=== PATIENT | female | born 1950 | race Caucasian/White ===

== ENCOUNTER → 2017-09-01 12:10 | Outpatient (CLI) | payer MEDICARE, SELFPAY ==
--- NOTE | 2017-09-01 12:15 | RAD_ITS ---
STUDY: X-RAY - RIGHT WRIST REASON FOR EXAM: Female, 67 years old. Pain TECHNIQUE: 3 view(s) of the wrist were obtained. COMPARISON: None. FINDINGS: Normal visualized distal radius and ulna. Normal radiocarpal articulation. Normal distal radioulnar articulation. Normal carpal bones. Normal carpal articulations. Normal carpometacarpal articulation of the thumb. Normal second through fifth carpometacarpal articulations. Normal visualized metacarpal bones. The soft tissue structures are unremarkable. RAD/Wrist min 3 Views IMPRESSION: Normal x-ray examination of the wrist. Electronically Signed: Mikael Alexander MD at 20:42 EDT , Service support ,
--- NOTE | 2017-09-01 12:30 | RAD_ITS ---
STUDY: X-RAY - LEFT WRIST REASON FOR EXAM: Female, 67 years old. Pain TECHNIQUE: 3 view(s) of the wrist were obtained. COMPARISON: None. FINDINGS: Normal visualized distal radius and ulna. Normal radiocarpal articulation. Normal distal radioulnar articulation. Normal carpal bones. Normal carpal articulations. Normal carpometacarpal articulation of the thumb. Normal second through fifth carpometacarpal articulations. Normal visualized metacarpal bones. The soft tissue structures are unremarkable. RAD/Wrist min 3 Views IMPRESSION: Normal x-ray examination of the wrist. Electronically Signed: Mikael Alexander MD at 20:42 EDT , Service support ,
--- NOTE | 2017-09-01 12:31 | RAD_ITS ---
STUDY: X-RAY - SACRUM/COCCYX REASON FOR EXAM: Female, 67 years old. Pain TECHNIQUE: 3 view(s) of the sacrum and coccyx were obtained. COMPARISON: None. FINDINGS: Normal bilateral sacroiliac joints. Normal visualized sacral ala and fused sacral bodies. Normal sacrococcygeal junction with a normal angulation. Normal coccygeal segments. There is a right sided subcutaneous implanted electronic device with leads extending into the spinal canal. This is likely an SCS (spinal cord or sacral stimulator). The presacral soft tissue structures are unremarkable. RAD/Sacrum-Coccyx min 2 Views IMPRESSION: Normal x-rays of the sacrum and coccyx. Electronically Signed: Mikael Alexander MD at 20:43 EDT , Service support ,
== END ==
PROVIDERS: Family Provider Internal Medicine; PCP Internal Medicine; Visit Provider Internal Medicine
DX: S39.92XA Unspecified injury of lower back, initial encounter (principal); X58.XXXA Exposure to other specified factors, initial encounter; M25.532 Pain in left wrist; M25.531 Pain in right wrist
CPT/HCPCS: 72220; 73110

== ENCOUNTER → 2017-11-10 16:11 | Outpatient (CLI) | payer MEDICARE, SELFPAY | PROVIDERS: Family Provider Internal Medicine; PCP Internal Medicine; Visit Provider Nurse Practitioner Gerontology | DX: R05 Cough (principal) | CPT/HCPCS: 71046 ==

== ENCOUNTER → 2018-04-01 06:28 | Outpatient (CLI) | payer MEDICARE, SELFPAY ==
[2018-04-01 07:16] LABS: Absolute Neutrophil Count 3.8 X10^3/uL (2.0-7.7); Basophil# 0.03 X10^3/uL; Basophil% 0.4 % (0-1); Eosinophil# 0.11 X10^3/uL; Eosinophils% 1.6 % (0-5); Hematocrit 39.4 % (37-47); Hemoglobin 13.3 g/dl (12.0-15.0); Lymphocyte % 33.9 % (19-41); Mean Corp Hgb Conc 33.8 g/gl (32-36); Mean Corpuscular Hgb 33.4 pg (27.0-32.0); Mean Platelet Vol. 9.1 fl (6.2-12.0); Monocyte# 0.53 X10^3/uL; Monocyte% 7.8 % (0-10); Platelet Count 201 K/mm3 (150-450); RBC Distribution Width CV 12.7 % (11.6-14.6); RBC Distribution Width SD 45.5 fl (35.1-43.9); Red Blood Count 3.98 M/mm3 (4.2-5.4); White Blood Count 6.8 K/mm3 (4.4-11.0)
[2018-04-01 07:20] LABS: POSITIVE COUNT NO; POSITIVE DIFFERENTIAL NO; POSITIVE MORPHOLOGY NO
[2018-04-01 07:46] LABS: ALB/GLOB Ratio 1.1 RATIO (0.9-2.4); AST(SGOT) 12 U/L (15-37); Alanine Aminotransfer ALT/SGPT 20 U/L (13-56); Albumin, Serum 3.5 g/dL (3.2-5.0); Alkaline Phosphatase 89 U/L (45-117); Anion Gap 7 (5-15); BUN 17 mg/dL (7-18); BUN/Creat Ratio 23.2 RATIO (10-20); CPK Total, Creatine Kinase 44 U/L (26-192); Calcium,Total 8.6 mg/dL (8.5-10.1); Chloride 105 mmol/L (98-107); Creatinine, Serum 0.73 mg/dL (0.55-1.02); EST Glomerular Filtration Rate 84 mL/min (>60); Est Glom Filt Rate - Afr Amer 101 mL/min (>60); Globulin 3.3 g/dL (2.2-4.2); Glucose 90 mg/dL (74-106); Potassium 3.6 mmol/L (3.5-5.1); Protein, Total 6.8 g/dL (6.4-8.2); Sodium Level 142 mmol/L (136-145)
--- NOTE | 2018-04-01 08:19 | US_ITS ---
STUDY: ABDOMINAL ULTRASOUND - RIGHT UPPER QUADRANT REASON FOR VISIT: Female, 67 years old. Mid chest pain for 2 weeks. TECHNIQUE: Ultrasound evaluation of the right upper quadrant was performed with real-time and static duboes-scale imaging. TECHNICAL QUALITY: Adequate. COMPARISON: None. FINDINGS: Liver: The liver measures 16.5 cm. There is increased echogenicity consistent with fatty infiltration. The bile ducts are within normal limits. There is hepatic color flow. The direction of portal flow is hepatopetal. There is no demonstrated mass lesion. Gallbladder: Normal distended gallbladder. The gallbladder wall measures 2.8 mm. There is a negative sonographic Noriega's sign. There is no pericholecystic fluid. There are no gallstones. Common Bile Duct (C.B.D.): The common bile duct measures 4.3 mm. Pancreas: Normal size of the head, body and tail of the pancreas. There is normal echogenicity of the pancreas. There is no demonstrated pancreatic mass or cyst. Right Kidney: Normal size of the right kidney. The right kidney measures 10.8 cm. Normal renal cortex. The right cortex measures 1.7 cm. There is a 1.2 x 1.3 x 1.0 cm simple cortical cyst in the mid kidney. There is no right hydronephrosis. US/Liver IMPRESSION: 1. Fatty infiltration of the liver without mass. 2. No evidence of gallbladder or biliary ductal abnormality. 3. Right renal cyst. Electronically Signed: Vernon Chavez DO at 23:40 EST Tel [phone], Service support ,
--- NOTE | 2018-04-01 08:52 | ECHOD_ITS ---
Reason For Study: chest pain Procedure This was a 2D Doppler, Color Flow transthoracic echocardiogram. Exam performed in department. Left Ventricle Normal size and thickness. Stage 2 diastolic dysfunction. The estimated ejection fraction is 55-60 %. No regional wall motion abnormalities noted. Right Ventricle Normal size and thickness. Normal systolic function. Atria The left atrium is mildly enlarged. Normal right atrium. Normal atrial septum. Mitral Valve The mitral valve is structurally normal. No prolapse or stenosis seen. Trivial mitral valve insufficiency. Tricuspid Valve Normal tricuspid valve. Trivial tricuspid valve insufficiency. Right ventricular systolic pressure estimated to be 26 mmHg. Aortic Valve Trisinus/trileaflet aortic valve. Normal aortic valve. Pulmonic Valve Normal pulmonic valve. Great Vessels Normal aortic root. Normal arch. Normal inferior vena cava. Inferior vena cava collapse with sniff. Pericardium/Pleural No pericardial effusion. MMode/2D Measurements & Calculations LVIDd: 4.6 cm IVSd: 1.1 cm Ao root diam: 3.0 cm LVIDs: 3.3 cm LVPWd: 0.99 cm RVDd: 2.6 cm FS: 28.9 % LAV(MOD-bp): 70.3 ml LA A4 area: 20.4 cm2 LA dimension(2D): 4.2 cm LAV(MOD-bp) Indexed: 35.2 ml/m2 LAV(MOD-sp2): 67.3 ml LAV(MOD-sp4): 66.8 ml RA A4 area: 13.3 cm2 Doppler Measurements & Calculations MV E max garrett: 96.5 cm/sec Lat Peak E' Garrett: 7.3 cm/sec Med Peak E' Garrett: 7.1 cm/sec MV A max garrett: 89.5 cm/sec E/E' lat: 13.2 E/E' med: 13.7 MV E/A: 1.1 Ao V2 max: 121.7 cm/sec LV V1 max: 103.6 cm/sec PA V2 max: 86.9 cm/sec Ao max P.9 mmHg LV V1 max P.3 mmHg TR max garrett: 226.9 cm/sec TR max P.6 mmHg Interpretation Summary Stage 2 diastolic dysfunction. The estimated ejection fraction is 55-60 %. The left atrium is mildly enlarged. Trivial mitral valve insufficiency. Trivial tricuspid valve insufficiency. Right ventricular systolic pressure estimated to be 26 mmHg. There is no comparison study available. Ordering Physician: Lilliana Mishra Referring Physician: Lilliana Mishra Performed By: Kathrin Pitts, MARCELA, RVT
--- NOTE | 2018-04-01 12:39 | STRESSREP ---
Stress Test Report Pharmacologic myocardial perfusion stress test. 67-year-old lady with a history of atypical chest pain. Medications: Crestor, lisinopril, rosuvastatin, Lexapro. Stress protocol: Resting EKG demonstrates normal sinus rhythm with a rate of 63 bpm normal intervals are noted resting blood pressure 122/82 mmHg. 0.4 mg of regadenoson was infused per usual protocol followed by rapid intravenous saline flush injection continuous EKG monitoring was performed. The maximum heart rate attained was 86 bpm which was 56% of maximum corrected heart rate the maximum workload was 1 metabolic equivalent. At rest there were no ST or T wave changes noted suggest abnormal flow reserve at peak infusion no ST or T wave changes were noted suggest abnormal flow reserve. The resting blood pressure was 122/82 final blood pressure was 126/90 mmHg. Myocardial perfusion protocol. 11.8 mCi of technetium 99m sestamibi was injected at rest. 0.4 mg of regadenoson was infused per usual protocol peak infusion 34.3 mCi of technetium 99m sestamibi was injected stress images were obtained stress and rest images were reconstructed and compared in the short axis vertical long horizontal long axis. Gated images were also obtained Perfusion SPECT analysis: Review of the stress images demonstrate normal uptake of tracer noted in all areas of the myocardium. The resting images similarly demonstrate normal uptake of tracer noted in all areas of the myocardium. No areas of reversibility are noted suggest ischemia no previous infarct is noted. Gated SPECT analysis: The gated ejection fraction is noted to be 68%. Conclusion: Normal pharmacologic myocardial perfusion stress test. Preserved ejection fraction.
--- OUTSIDE RECORDS SUMMARY | 2018-06-05 22:03 | XMS RPT_ITS | Continuity of Care Document ---
:1950 Author Organization [facility] Address [facility] [facility] [address] [place] [address] Phone Care Team Providers Name Role Phone Tad DO Lilliana Unavailable Flako SALAZAR, Yahaira Kuhn Unavailable Mayra Pérez DO Unavailable Dimitris SALAZAR, Dr. Alex Dunlap Unavailable Pascual Knutson Unavailable Long PERSONAL FINANCE INSTRUCTOR, Petra L Unavailable Unavailable Gravius, Belinda Unavailable Unavailable Louise Darby Unavailable Unavailable Emick, [place] Unavailable Unavailable Messenger, PERSONAL FINANCE INSTRUCTOR Louise Unavailable Unavailable Unavailable Unavailable Problems Name Dates Details Abnormal TSH (R79.89, 790.6) Status: Active Abortions/Miscarriages Comments: 1 Status: Active Achilles tendinitis of right lower extremity (M76.61, 726.71) Comments: takeibuprofen 3 pills 3 times a day with food- and light stretch not overdo walking good support and call us if want to do more Status: Active Acquired hypothyroidism (E03.9, 244.9) Status: Active Acute wrist pain, unspecified laterality (M25.539, 719.43) Comments: strained ligaments Status: Active Allergic Rhinitis (J30.9, 477.9) Status: Active Asymptomatic varicose veins of unspecified lower extremity (I83.90, 454.9) Status: Active Attention deficit (R41.840, 799.51) Comments: not meet criteria of primary ADD. ? secondary to age and overwhelmed busy. ? anxiety. workign wtih pascual sow. i will talk to Dr. knutson and she agree will work with pt on CBT and added jose pt think helped. Status: Active Attention deficit disorder (ADD) in adult (F98.8, 314.00) Status: Active BMI 33.0-33.9,adult (Z68.33, V85.33) Status: Active Chest pain, atypical (R07.89, 786.59) Status: Active Cough (R05, 786.2) Status: Active Cough (R05, 786.2) Comments: Returned home from trip to [place]-dust allergy? Status: Active Cough (R05, 786.2) Comments: not wheezing right now ? eractionto candle and tree. reecommend antihistamine and steriod nasla spray. Status: Active Deliveries (Parity) Comments: 1 Status: Active Depression (F32.9, 311) Comments: has been stable Status: Active Disorder of the skin and subcutaneous tissue, unspecified (L98.9, 709.9) Status: Active Dizziness (R42, 780.4) Status: Active Dizzy (R42, 780.4) Status: Active Elevated blood pressure reading (R03.0, 796.2) Status: Active Epigastric pain (R10.13, 789.06) Status: Active Fatty liver (K76.0, 571.8) Status: Active Gastroesophageal reflux disease without esophagitis (K21.9, 530.81) Comments: chronic stable-continue present regimen Status: Active Hypertension (401.0) Comments: looks good Status: Active Hypertension, benign (I10, 401.1) Status: Active Joint pain (M25.50, 719.40) Comments: will stop crestro and see if goes away?? but look into fx with h/o of fall Status: Active Lateral epicondylitis (M77.10, 726.32) Status: Active Low back pain (M54.5, 724.2) Status: Active Mixed hyperlipidemia (E78.2, 272.2) Comments: lil uncontrolled wity Particle size etc-- some tail bone pain but fell -- but has h/o of not tolerating other statins Status: Active Motion sickness (T75.3XXA, 994.6) Status: Active Need for malaria prophylaxis (Z29.8, V07.8) Status: Active Need for prophylactic vaccination and inoculation against influenza (Renamed from Need for immunization against influenza) (Z23, V04.81) Status: Active Need for prophylactic vaccination and inoculation against influenza (Renamed from Need for immunization against influenza) (Z23, V04.81) Status: Active Non-smoker (Z78.9, V49.89) Status: Active Obesity (E66.9, 278.00) Status: Active obsessive compulsive eating Status: Active OTHER SEBORRHEIC KERATOSIS (L82.1, 702.19) Comments: reasurance Status: Active Other specified abnormal findings of blood chemistry (R79.89, 790.6) Status: Active Pain in unspecified hip (M25.559, 719.45) 01-Apr-2011 Status: Active Pneumococcal vaccination given (Z23, V06.6) Status: Active Pregnancies () Comments: 2 Status: Active Pulsatile abdomen (R19.8, 789.9) Status: Active RUQ pain (R10.11, 789.01) Status: Active Sigmoidoscopy Comments: Neg. Status: Active Sinusitis, bacterial (J32.9, 473.9) Status: Active Sleep disorder (G47.9, 780.50) Status: Active SOB (shortness of breath) (R06.02, 786.05) Status: Active SYMPTOMS INVOLVING SKIN AND OTHER INTEGUMENTARY TISSUE, DISTURBANCE OF SKIN SENSATION (R20.2, 782.0) Status: Active Tailbone injury, initial encounter (S39.92XA, 959.19) Status: Active Unspecified Diagnosis Status: Active Unspecified Diagnosis Status: Active Viral warts, unspecified type (B07.9, 078.10) Status: Active VITAMIN D DEFICIENCY (Renamed from Avitaminosis D) (E55.9, 268.9) Comments: pt to assure looking at supplemts to take 5K Status: Active Weight gain (R63.5, 783.1) Status: Active Medications Name Dates Details ASPIRIN LOW DOSE, 81MG (Oral Tablet) 1 (one) Tablet daily for 30 days Quantity: 30 {Tablet} Refills: 3 Ordered:14-Jun-2015 Mercedez Tapia Start : 14-Jun-2015 Active Bromfed DM 30-2-10 MG/5ML Oral Syrup 10 Milliliter 10 ml every 8 hours prn for 0 days Quantity: 210 {Milliliter} Refills: 0 Ordered:02-Feb-2018 Louise Darby Start : 02-Feb-2018 Active CALCIUM CARBONATE, 1250MG (Oral Tablet) 1 (one) Tablet QD for 30 days Quantity: 30 {Tablet} Refills: 3 Ordered:14-Jun-2015 Mercedez Tapia Start : 14-Jun-2015 Active CHOLESTOFF PLUS, 450MG (Oral Capsule) 1 cap daily (450 MG) Active CoQ10 100 MG Oral Capsule 1 Capsule qd for 30 days Refills: 0 Ordered:26-Jun-2016 Leilanisylviason MAGAÑAAmy Start : 26-Jun-2016 Active Crestor 5 MG Oral Tablet 1 (one) Tablet qd for 90 days Quantity: 90 {Tablet} Refills: 3 Ordered:25-Feb-2018 Camilo Mishra DO, DO, Kathleen Start : 25-Feb-2018 End : 01-Sep-2017 Active Crestor 5 MG Oral Tablet 1 (one) Tablet qd for 0 days Quantity: 30 {Tablet} Refills: 4 Ordered:25-Feb-2018 Camilo Mishra DO, DO, Kathleen Start : 25-Feb-2018 End : 01-Sep-2017 Active Comments:see is aches and pains go away with prev h/o statin ;use DAILY VALUE MULTIVITAMIN (Oral Tablet) 1 (one) Tablet daily for 30 days Quantity: 30 {Tablet} Refills: 3 Ordered:14-Jun-2015 Mercedez Tapia Start : 14-Jun-2015 Active Escitalopram Oxalate 10 MG Oral Tablet 1 (one) Tablet daily for 90 days Quantity: 90 {Tablet} Refills: 2 Ordered:29-Jul-2017 Camilo Mishra DO, DO, Kathleen Start : 29-Jul-2017 Active Fexofenadine HCl 180 MG Oral Tablet 1 tab Tablet qd for 0 days Quantity: 90 {Tablet} Refills: 1 Ordered:12-Mar-2017 Yahaira Arriola MD Start : 12-Mar-2017 Active FISH OIL CONCENTRATE, 1000MG (Oral Capsule) 1 cap Capsule daily for 30 days Quantity: 30 {Capsule} Refills: 3 Ordered:14-Jun-2015 Mercedez Tapia Start : 14-Jun-2015 Active Flonase 50 MCG/ACT Nasal Suspension 2 (two) Puff daily for 0 days Quantity: 1 {Inhaler} Refills: 0 Ordered:12-Mar-2017 Yahaira Arriola MD Start : 12-Mar-2017 Active FOLIC ACID, 1MG (Oral Tablet) 1 (one) Tablet QD for 30 days Quantity: 30 {Tablet} Refills: 3 Ordered:14-Jun-2015 Mercedez Tapia Start : 14-Jun-2015 Active GLUCOSAMINE, 500MG (Oral Capsule) 1 Capsule QD for 30 days Quantity: 30 {Capsule} Refills: 3 Ordered:14-Jun-2015 Mercedez Tapia Start : 14-Jun-2015 Active Liccorice roots Active Lisinopril 5 MG Oral Tablet 1 (one) Tablet daily for 90 days Quantity: 90 {Tablet} Refills: 2 Ordered:29-Jul-2017 Camilo Mishra DO, DO, Kathleen Start : 29-Jul-2017 Active Meloxicam 15 MG Oral Tablet 1 (one) Tablet Tablet qd with food for 0 days Quantity: 30 {Tablet} Refills: 0 Ordered:09-Sep-2017 Kyra Tomas Start : 09-Sep-2017 Active Pantoprazole Sodium 40 MG Oral Tablet Delayed Release 1 (one) Tablet DR daily for 0 days Quantity: 30 {Tablet} Refills: 0 Ordered:06-Apr-2018 Camilo Mishra DO, DO, Kathleen Start : 06-Apr-2018 Active Pantoprazole Sodium 40 MG Oral Tablet Delayed Release 1 (one) Tablet DR daily for 0 days Quantity: 90 {Tablet} Refills: 3 Ordered:06-Apr-2018 Camilo Mishra DO, DO, Kathleen Start : 06-Apr-2018 Active Synthroid 100 MCG Oral Tablet 1 (one) Tablet qdaily but 1/2 on friday for 90 days Quantity: 90 {Tablet} Refills: 3 Ordered:01-Sep-2017 Camilo Mishra DO, DO, Kathleen Start : 01-Sep-2017 Active TIMOLOL MALEATE, 0.5% (Ophthalmic Gel Forming Solution) 1 drop left eye qd for 0 days Refills: 0 Ordered:13-Feb-2009 Mercedez TapiaActive Transderm-Scop (1.5 MG) 1 MG/3DAYS Transdermal Patch 72 Hour 1 (one) Patch 72HR q 72hrs behind the ear for 0 days Quantity: 10 {Patch} Refills: 0 Ordered:26-Dec-2017 Tad RIOS LillianaTad Lilliana Start : 26-Dec-2017 Active VALTREX, 500MG (Oral Tablet) 1 tab Tablet qd for 0 days Quantity: 30 {Tablet} Refills: 0 Ordered:02-Dec-2011 Mercedez Tapia Start : 02-Dec-2011 Active VITAMIN D3, 1000UNIT (Oral Capsule) 1 (one) Capsule daily for 30 days Quantity: 30 {Capsule} Refills: 3 Ordered:14-Jun-2015 Mercedez Tapia Start : 14-Jun-2015 Active Wellbutrin XL 150 MG Oral Tablet Extended Release 24 Hour 1 (one) Tablet in am for 0 days Quantity: 30 {Tablet} Refills: 2 Ordered:29-Jul-2017 Yahaira Arriola MD Start : 29-Jul-2017 Active Wellbutrin XL 150 MG Oral Tablet Extended Release 24 Hour 1 (one) Tablet in am for 0 days Quantity: 90 {Tablet} Refills: 3 Ordered:29-Jul-2017 Yahaira Arriola MD Start : 29-Jul-2017 Active ALIGN (Oral Capsule) 1 Capsule daily for 14 days Refills: 0 Ordered:15-May-2010 Amy Coppola CNP Start : 28-Feb-2010 End : 14-Mar-2010 Inactive Amoxicillin-Pot Clavulanate 875-125 MG Oral Tablet 1 Tablet bid for 14 days Quantity: 28 {Tablet} Refills: 0 Ordered:02-Feb-2018 Louise Darby Start : 02-Feb-2018 End : 16-Feb-2018 Inactive Apple cider vinegar tablet daily Inactive Azithromycin 1 GM Oral Packet 1 (one) Packet TAD for 0 days Quantity: 1 {Packet} Refills: 0 Ordered:02-Feb-2018 Louise Hahn LPN Start : 10-Nov-2017 End : 02-Feb-2018 Inactive Cefadroxil 500 MG Oral Capsule 1 (one) Capsule bid for 7 days Quantity: 14 {Capsule} Refills: 0 Ordered:26-Jun-2016 Amy Coppola CNP Start : 26-Jun-2016 End : 03-Jul-2016 Inactive Cheratussin AC 100-10 MG/5ML Oral Syrup 10 Milliliter PO Q4-6h PRN Cough for 7 days Quantity: 420 {Milliliter} Refills: 0 Ordered:10-Nov-2017 Louise Darby Start : 10-Nov-2017 End : 17-Nov-2017 Inactive Comments:Take with food and plenty of waterFour hundred twenty mL. Cipro 500 MG Oral Tablet 1 (one) Tablet twice daily for 30 days Quantity: 60 {Tablet} Refills: 0 Ordered:01-Sep-2017 Camilo Mishra DO, DO, Kathleen Start : 01-Sep-2017 End : 01-Oct-2017 Inactive Ciprofloxacin HCl 500 MG Oral Tablet 1 (one) Tablet BID for 7 days Quantity: 14 {Tablet} Refills: 0 Ordered:29-Apr-2017 Camilo Mishra DO, DO, Kathleen Start : 29-Apr-2017 End : 06-May-2017 Inactive DELSYM, 30MG/5ML (Oral Liquid Extended Release) 1 Teaspoon(s) bid for 14 days Refills: 0 Ordered:15-May-2010 Amy Coppola CNP Start : 28-Feb-2010 End : 14-Mar-2010 Inactive Doxycycline Hyclate 100 MG Oral Capsule tad Capsule one day before travel and qd during and qd 4weeks when return home for 60 days Quantity: 61 {Capsule} Refills: 0 Ordered:29-Apr-2017 Louise Hahn LPN Start : 29-Apr-2017 End : 28-Jun-2017 Inactive OMEPRAZOLE, 20MG (Oral Capsule Delayed Release) [address] QD for 0 days Quantity: 30 {Capsule_DR} Refills: 3 Ordered:11-Apr-2009 Mercedez Tapia Start : 11-Jan-2009 Inactive Ondansetron HCl 8 MG Oral Tablet 1 (one) Tablet Tablet PO Q 8 hours PRN Nausea for 0 days Quantity: 30 {Tablet} Refills: 0 Ordered:12-Mar-2017 EDITH Calvo Start : 22-Aug-2016 End : 12-Mar-2017 Inactive PredniSONE 10 MG Oral Tablet 1 (one) Tablet TAD for 0 days Quantity: 18 {Tablet} Refills: 0 Ordered:02-Feb-2018 Louise Hahn LPN Start : 10-Nov-2017 End : 02-Feb-2018 Inactive Comments:3 Tablets Daily x 3 days,2 Tablets Daily x 3 days,1 Tablet Daily x 3 days.Take with food. RASPBERRY CONCENTRATE (Concentrate) qd Inactive SINGULAIR, 10MG (Oral Tablet) 1 QD for 0 days Refills: 0 Ordered:25-Jul-2009 Chapis Tapiactive ZOSTAVAX, 10777LVA/0.65ML (Subcutaneous Solution Reconstituted) 1 (one) For Solution one time dose for 0 days Quantity: 1 {For_Solution} Refills: 0 Ordered:06-Apr-2012 Mercedez Tapia Start : 08-Aug-2011 End : 06-Apr-2012 Inactive Comments:if pharmacy cant give injection then bring to dr's office immediatly to receive injection. BENADRYL, 25MG (Oral Tablet) 1 (one) Tablet Q 8 hr for 0 days Refills: 0 Ordered:16-Nov-2005 Catia Clement Start : 16-Nov-2005 End : 03-Mar-2006 Discontinued CLARINEX, 5MG (Oral Tablet) 1 (one) Tablet Daily for 0 days Refills: 0 Ordered:16-Nov-2005 Catia Clement Start : 16-Nov-2005 End : 03-Mar-2006 Discontinued CONTRAVE, 8/ 90MG (Oral Tablet) (Free Text) 2 (two) Tablet bid for 0 days Quantity: 120 {Tablet} Refills: 1 Ordered:20-Sep-2014 Nikki Thompson LPN Start : 18-Jul-2014 End : 20-Sep-2014 Discontinued Comments:one hundred twenty FEMHRT LOW DOSE, 0.5-2.5MG-MCG (Oral Tablet) 1 qd for 0 days Refills: 0 Ordered:08-May-2007 eMrcedez Tapia End : 08-May-2007 Discontinued FEXOFENADINE HCL, 60MG (Oral Tablet) 1 (one) Tablet Tablet bid for 0 days Quantity: 60 {Tablet} Refills: 0 Ordered:20-Sep-2014 Nikki Thompson LPN Start : 31-Dec-2013 End : 20-Sep-2014 Discontinued FISH OIL CONCENTRATE, 1000MG (Oral Capsule) 1 cap qd for 0 days Refills: 0 Ordered:18-Oct-2014 Slarb Dorene DEWEY End : 18-Oct-2014 Discontinued LICORICE ROOT (Powder) 1 Powder qhs for 30 days Refills: 0 Ordered:31-Dec-2013 Nikki Thompson LPN Start : 27-Nov-2010 End : 31-Dec-2013 Discontinued Comments:night sweats LUNESTA, 2MG (Oral Tablet) 1 (one) Tablet q hs, prn for 30 days Quantity: 30 {Tablet} Refills: 1 Ordered:31-Dec-2013 Nikki Thompson LPN Start : 16-Aug-2013 End : 31-Dec-2013 Discontinued Meclizine HCl 25 MG Oral Tablet 1 (one) Tablet q 8 hr prn for 0 days Quantity: 20 {Tablet} Refills: 0 Ordered:26-Jun-2016 Lore DEWEYAlphonsea Start : 09-Nov-2015 End : 26-Jun-2016 Discontinued NEXIUM, 40MG (Oral Capsule Delayed Release) [address] qd for 0 days Refills: 0 Ordered:03-Mar-2006 Catia Clement Start : 03-Mar-2006 End : 03-Mar-2006 Discontinued PEPCID, 20MG (Oral Tablet) 1 (one) Tablet Twice daily for 0 days Quantity: 10 {Tablet} Refills: 0 Ordered:16-Nov-2005 Catia Clement Start : 16-Nov-2005 End : 03-Mar-2006 Discontinued PREDNISONE, 20MG (Oral Tablet) 1 Tablet qd with food for 0 days Quantity: 2 {Tablet} Refills: 0 Ordered:06-Apr-2012 Mayra Pérez DO Start : 06-Apr-2012 End : 06-Apr-2012 Discontinued PREVACID, 30MG (Oral Capsule Delayed Release) [address] QD for 0 days Quantity: 90 {Capsule_DR} Refills: 3 Ordered:31-Jul-2006 Catia Clement Start : 31-Jul-2006 End : 20-Aug-2006 Discontinued SIMVASTATIN, 40MG (Oral Tablet) 1 (one) Tablet qd for 0 days Quantity: 90 {Tablet} Refills: 3 Ordered:13-Feb-2009 Fast Mayra RIOS Start : 13-Feb-2009 End : 13-Feb-2009 Discontinued Comments:hip pain TRANSDERM-SCOP, 1.5MG (Transdermal Patch 72 Hour) apply 1 patch Patch 72HR change every 72 hrs, prn for 0 days Quantity: 10 {Patch} Refills: 0 Ordered:31-Dec-2013 Nikki Thompson LPN Start : 02-Jun-2013 End : 31-Dec-2013 Discontinued TRAZODONE HCL, 50MG (Oral Tablet) 1 Tablet qhs prn for 0 days Quantity: 30 {Tablet} Refills: 3 Ordered:06-Apr-2012 Mayra Pérez DO Start : 06-Apr-2012 End : 06-Apr-2012 Discontinued WELCHOL, 3.75GM (Oral Packet) 1 Packet packet q day with 8 oz water for 0 days Quantity: 90 {Packet} Refills: 3 Ordered:02-Dec-2011 Mercedez Tapia Start : 02-Dec-2011 End : 02-Dec-2011 Discontinued ZETIA, 10MG (Oral Tablet) 1 Tablet qd for 0 days Quantity: 30 {Tablet} Refills: 1 Ordered:02-Dec-2011 Mercedez Tapia Start : 02-Dec-2011 End : 02-Dec-2011 Discontinued Allergies and Adverse Reactions Name Dates Details No Known Drug Allergies (Allergy) Status: Active Past Medical History Name Dates Details Abnormal TSH (R79.89, 790.6) Status: Resolved as of 17-Apr-2009 Allergic reaction to chemical substance, accidental or unintentional, sequela (T65.91XS, 909.1) Comments: from kacie--- no active infection right now -- but still having rxn - Status: Inactive as of 29-Jan-2017 BMI 30.0-30.9,adult (Z68.30, V85.30) Status: Inactive as of 29-Jan-2017 BMI 32.0-32.9,adult (Z68.32, V85.32) Status: Inactive as of 30-Jun-2017 BMI 34.0-34.9,adult (Z68.34, V85.34) Status: Resolved as of 12-Mar-2017 Cellulitis (L03.90, 682.9) Comments: rt index finger Status: Resolved as of 29-Jan-2017 Diarrhea, unspecified type (R19.7, 787.91) Status: Inactive as of 29-Jan-2017 Dizziness and giddiness (R42, 780.4) Status: Inactive as of 23-Aug-2008 DYSURIA (Renamed from Difficult or painful urination) (R30.0, 788.1) Status: Resolved as of 14-Jun-2015 Encounter for immunization (Z23, V03.89) Status: Inactive as of 14-Jun-2015 Hematuria (R31.9, 599.7) Status: Inactive as of 23-Aug-2008 Knee pain (M25.569, 719.46) Status: Resolved as of 03-Aug-2012 Laryngitis (J04.0, 464.00) Status: Resolved as of 18-Jul-2014 Nausea (R11.0, 787.02) Status: Resolved as of 29-Jan-2017 Nausea (R11.0, 787.02) Status: Inactive as of 23-Aug-2008 Need for prophylactic vaccination against diphtheria, tetanus, acellular pertussis, poliovirus, hepatitis B virus, measles, mumps, rubella and varicella (Z23, V06.8) Status: Inactive as of 01-Apr-2011 Need for prophylactic vaccination and inoculation against influenza (Z23, V04.81) Status: Inactive as of 14-Jun-2015 Pain in limb (M79.609, 729.5) Status: Inactive as of 23-Aug-2008 possible drug withdrawal Status: Inactive as of 23-Aug-2008 Sebaceous cyst (L72.3, 706.2) Status: Resolved as of 29-Jan-2017 Sinus infection (J32.9, 473.9) Status: Resolved as of 03-Aug-2012 Sinusitis, acute (J01.90, 461.9) Status: Inactive as of 14-Jun-2015 travel Status: Inactive as of 14-Jun-2015 typhoid vaccine given Comments: ABN signed CH Status: Inactive as of 23-Aug-2008 Unspecified Diagnosis Status: Inactive as of 01-Apr-2011 Unspecified Diagnosis Status: Inactive as of 14-Jun-2015 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 Medronic implant Completed Comments: Dr Jeffers Date Value Details 01-Apr-2018 Echocardiogram Complete Result: Comments: See Note; NOTES: [facility] Cardiovascular Services [address] [place] [address] Echo Complete 04/01/18 0859 MR#: [id number] Acct: [id number] Name: PAMELA GUTIERREZ Rep #: [id number] : 1950 67 From: Jus Johnson MD Attending Dr: Lilliana Mishra DO Status: REG CLI Ordering Dr: Lilliana Mishra DO Date: 04/01/18 Location: [facility] Sex: F C Admitted: Reason For Study: chest pain Procedure This was a 2D Doppler, Color Flow transthoracic echocardiogram. Exam performed in department. Left Ventricle Normal size and thickness. Stage 2 diastolic dysfunction. The estimated ejection fraction is 55-60 %. No regional wall motion abnormalities noted. Right Ventricle Normal size and thickness. Normal systolic function. Atria The left atrium is mildly enlarged. Nor mal right atrium. Normal atrial septum. Mitral Valve The mitral valve is structurally normal. No prolapse or stenosis seen. Trivial mitral valve insufficiency. Tricuspid Valve Normal tricuspid valve. Trivial tricuspid valve insufficiency. Right ventricular systolic pressure estimated to be 26 mmHg. Aortic Valve Trisinus/trileaflet aortic valve. Normal aortic valve. Pulmonic Valve Normal pulmonic v alve. Great Vessels Normal aortic root. Normal arch. Normal inferior vena cava. Inferior vena cava collapse with sniff. Pericardium/Pleural No pericardial effusion. MMode/2D Measurements AND Calcula tions LVIDd: 4.6 cm IVSd: 1.1 cm Ao root diam: 3.0 cm LVIDs: 3.3 cm LVPWd: 0.99 cm RVDd: 2.6 cm FS: 28.9 % LAV(MOD-bp): 70.3 ml LA A4 area: 20.4 cm2 LA dimension(2D): 4.2 cm LAV(MOD-bp) Indexed: 35.2 ml/m2 LAV(MOD-sp2): 67.3 ml LAV(MOD-sp4): 66.8 ml RA A4 area: 13.3 cm2 Doppler Measurements AND Calculations MV E max galen: 96.5 cm/sec Lat Peak E' Galen: 7.3 cm/sec Med Peak E' Galen: 7.1 cm/sec MV A max galen: 89.5 cm/sec E/E' lat: 13.2 E/E' m ed: 13.7 MV E/A: 1.1 Ao V2 max: 121.7 cm/sec LV V1 max: 103.6 cm/sec PA V2 max: 86.9 cm/sec Ao max P.9 mmHg LV V1 m ax P.3 mmHg TR max galen: 226.9 cm/sec TR max P.6 mmHg Interpretation Summary Stage 2 diastolic dysfunction. Th e estimated ejection fraction is 55-60 %. The left atrium is mildly enlarged. Trivial mitral valve insufficiency. Trivial tricuspid valve insufficiency. Right ventricular systolic pressure estimated to be 26 mmHg. There is no comparison study available. Ordering Physician: Lilliana Mishra Referr ing Physician: Lilliana Mishra Performed By: Kathrin Pitts, MARCELA, RVT 04/01/18 1517 Date Jus Johnson MD CC: Lilliana Mishra DO Date Dictated: 04/01/18 0859 Date Transcribed: 04/01/181516 Armature Bander: Signed 01-Apr-2018 Stress Report Result: Comments: See Note; NOTES: [facility] Cardiovascular Services [address] [place], [place] [address] [address] MR#: [id number] Acct: [id number] Name: PAMELA GUTIERREZ Rep #: [id number] : 06/1950 67 From: Calvin Doty MD Primary Care: Lilliana Mishra DO Status: REG CLI Ordering Dr: Sex: F C Stress Test Report Pharmacologic myocardial perfusion stress test. 67-year-old lady with a hi story of atypical chest pain. Medications: Crestor, lisinopril, rosuvastatin, Lexapro. Stress protocol: Resting EKG demonstrates normal sinus rhythm with a rate of 63 bpm normal intervals are noted re sting blood pressure 122/82 mmHg. 0.4 mg of regadenoson was infused per usual protocol followed by rapid intravenous saline flush injection continuous EKG monitoring was performed. The maximum heart rat e attained was 86 bpm which was 56% of maximum corrected heart rate the maximum workload was 1 metabolic equivalent. At rest there were no ST or T wave changes noted suggest abnormal flow reserve at pea k infusion no ST or T wave changes were noted suggest abnormal flow reserve. The resting blood pressure was 122/82 final blood pressure was 126/90 mmHg. Myocardial perfusion protocol. 11.8 mCi of techn etium 99m sestamibi was injected at rest. 0.4 mg of regadenoson was infused per usual protocol peak infusion 34.3 mCi of technetium 99m sestamibi was injected stress images were obtained stress and rest images were reconstructed and compared in the short axis vertical long horizontal long axis. Gated images were also obtained Perfusion SPECT analysis: Review of the stress images demonstrate normal up take of tracer noted in all areas of the myocardium. The resting images similarly demonstrate normal uptake of tracer noted in all areas of the myocardium. No areas of reversibility are noted suggest is chemia no previous infarct is noted. Gated SPECT analysis: The gated ejection fraction is noted to be 68%. Conclusion: Normal pharmacologic myocardial perfusion stress test. Preserved ejection fractio n. 04/01/18 1245 <Electronically signed by Calvin Doty MD> Date Calvin Doty MD CC: Lilliana Mishra DO Date Dictated: 04/01/18 1239 Date Transcribed: 04/01/18 1239 Armature Bander: CO Signed 01-Apr-2018 Liver Result: Comments: See Note; NOTES: [facility] Imaging Services [address] [place] [id number] Liver MR#: [id number] Acct: [id number] Name: PAMELA GUTIERREZ Rep #: [id number] : [birth year] F 67 From: Vernon Chavez DO PCP: Lilliana Mishra DO Status: REG CLI Study: Liver Date of Exam: 04/01/18 Exam# [id number] Ordering Dr: Lilliana Mishra DO STUDY: ABDOMINAL [facility]AS[facility] REASON FOR VISIT: Female, 67 years old. Mid chest pain for 2 weeks. TECHNIQUE: Ultrasound evaluation of the right upper quadrant was performed with real-time and static dubose-scale imaging. TECH NICAL QUALITY: Adequate. COMPARISON: None. FINDINGS: Liver: The liver measures 16.5 cm. There is increased echogenicity consistent with fatty infiltration. The daxa e ducts are within normal limits. There is hepatic color flow. The direction of portal flow is hepatopetal. There is no demonstrated mass lesion. Gallbladder: Normal distended gallbladder. The gallblad brit wall measures 2.8 mm. There is a negative sonographic Noriega's sign. There is no pericholecystic fluid. There are no gallstones. Common Bile Duct (C.B.D.): The common bile duct measures 4.3 mm. Pa ncreas: Normal size of the head, body and tail of the pancreas. There is normal echogenicity of the pancreas. There is no demonstrated pancreatic mass or cyst. Right Kidney: Normal size of the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 Calculated 2 m2 :17 Pulse 67 /min Comments: Pattern: Regular Respiration Rate 18 /min Comments: Pattern: Unlabored O2 SAT 97 % Comments: Room air BP Systolic 118 mm[Hg] Comments: Patient Position: Sitting; Cuff Location: Left Arm; Cuff Size: Large BP Diastolic 78 mm[Hg] Comments: Patient Position: Sitting; Cuff Location: Left Arm; Cuff Size: Large Weight 200.25 lb Height 66 in Body Mass Index Calculated 32.32 kg/m2 Body Surface Area Calculated 2 m2 :56 Temperature 98 f Pulse 66 /min Comments: Pattern: Regular Respiration Rate 16 /min Comments: Pattern: Unlabored O2 SAT 96 % Comments: Room air BP Systolic 110 mm[Hg] Comments: Patient Position: Sitting; Cuff Location: Left Arm; Cuff Size: Standard BP Diastolic 70 mm[Hg] Comments: Patient Position: Sitting; Cuff Location: Left Arm; Cuff Size: Standard Weight 205.125 lb Height 66 in Body Mass Index Calculated 33.11 kg/m2 Body Surface Area Calculated 2.02 m2 :50 Pulse 76 /min Comments: Pattern: Regular Respiration Rate 18 /min Comments: Pattern: Unlabored O2 SAT 97 % Comments: Room air BP Systolic 122 mm[Hg] Comments: Patient Position: Sitting; Cuff Location: Left Arm; Cuff Size: Large BP Diastolic 82 mm[Hg] Comments: Patient Position: Sitting; Cuff Location: Left Arm; Cuff Size: Large Weight 211.125 lb Height 66 in Body Mass Index Calculated 34.08 kg/m2 Body Surface Area Calculated 2.05 m2 :05 Temperature 97.7 f Pulse 69 /min Comments: Pattern: Regular Respiration Rate 16 /min Comments: Pattern: Unlabored O2 SAT 98 % Comments: Room air BP Systolic 114 mm[Hg] Comments: Patient Position: Sitting; Cuff Location: Left Arm; Cuff Size: Standard BP Diastolic 72 mm[Hg] Comments: Patient Position: Sitting; Cuff Location: Left Arm; Cuff Size: Standard Weight 204.125 lb Height 66 in Body Mass Index Calculated 32.95 kg/m2 Body Surface Area Calculated 2.02 m2 :16 Pulse 60 /min Comments: Pattern: Regular Respiration Rate 18 /min Comments: Pattern: Unlabored O2 SAT 98 % Comments: Room air BP Systolic 128 mm[Hg] Comments: Patient Position: Sitting; Cuff Location: Left Arm; Cuff Size: Standard BP Diastolic 82 mm[Hg] Comments: Patient Position: Sitting; Cuff Location: Left Arm; Cuff Size: Standard Weight 188 lb Height 66 in Body Mass Index Calculated 30.34 kg/m2 Body Surface Area Calculated 1.95 m2 :59 Temperature 97.6 f Pulse 62 /min Comments: Pattern: Regular Respiration Rate 17 /min Comments: Pattern: Unlabored O2 SAT 98 % Comments: Room air BP Systolic 122 mm[Hg] Comments: Patient Position: Sitting; Cuff Location: Left Arm; Cuff Size: Standard BP Diastolic 82 mm[Hg] Comments: Patient Position: Sitting; Cuff Location: Left Arm; Cuff Size: Standard Weight 188 lb Height 66 in Body Mass Index Calculated 30.34 kg/m2 Body Surface Area Calculated 1.95 m2 :20 Temperature 97.4 f Comments: Method: Temporal Pulse 68 /min Comments: Pattern: Regular Respiration Rate 15 /min Comments: Pattern: Unlabored O2 SAT 98 % Comments: Room air BP Systolic 100 mm[Hg] Comments: Patient Position: Sitting; Cuff Location: Left Arm; Cuff Size: Standard BP Diastolic 64 mm[Hg] Comments: Patient Position: Sitting; Cuff Location: Left Arm; Cuff Size: Standard Weight 188 lb Height 66 in Body Mass Index Calculated 30.34 kg/m2 Body Surface Area Calculated 1.95 m2 :54 Temperature 97.8 f Comments: Method: Temporal Pulse 68 /min Comments: Pattern: Regular Respiration Rate 15 /min Comments: Pattern: Unlabored O2 SAT 97 % Comments: Room air BP Systolic 100 mm[Hg] Comments: Patient Position: Sitting; Cuff Location: Left Arm; Cuff Size: Standard BP Diastolic 64 mm[Hg] Comments: Patient Position: Sitting; Cuff Location: Left Arm; Cuff Size: Standard Weight 185 lb Height 66 in Body Mass Index Calculated 29.86 kg/m2 Body Surface Area Calculated 1.94 m2 :03 Temperature 97.1 f Pulse 76 /min Comments: Pattern: Regular Respiration Rate 16 /min Comments: Pattern: Unlabored O2 SAT 98 % Comments: Room air BP Systolic 122 mm[Hg] Comments: Patient Position: Sitting; Cuff Location: Left Arm; Cuff Size: Standard BP Diastolic 78 mm[Hg] Comments: Patient Position: Sitting; Cuff Location: Left Arm; Cuff Size: Standard Weight 190.375 lb Height 66 in Body Mass Index Calculated 30.73 kg/m2 Body Surface Area Calculated 1.96 m2 :27 Temperature 97.6 f Comments: Method: Oral Pulse 83 /min Comments: Pattern: Regular Respiration Rate 16 /min O2 SAT 98 % Comments: Room air BP Systolic 122 mm[Hg] Comments: Patient Position: Sitting; Cuff Location: Left Arm; Cuff Size: Standard BP Diastolic 74 mm[Hg] Comments: Patient Position: Sitting; Cuff Location: Left Arm; Cuff Size: Standard Weight 200 lb Height 66 in Body Mass Index Calculated 32.28 kg/m2 Body Surface Area Calculated 2 m2 :02 Temperature 98.7 f Comments: Method: Oral Pulse 74 /min Comments: Pattern: Regular Respiration Rate 16 /min Comments: Pattern: Unlabored BP Systolic 122 mm[Hg] Comments: Patient Position: Sitting; Cuff Location: Left Arm; Cuff Size: Large BP Diastolic 80 mm[Hg] Comments: Patient Position: Sitting; Cuff Location: Left Arm; Cuff Size: Large Weight 200 lb Height 66 in Body Mass Index Calculated 32.28 kg/m2 Body Surface Area Calculated 2 m2 :47 Temperature 97.3 f Pulse 70 /min Comments: Pattern: Regular Respiration Rate 18 /min Comments: Pattern: Unlabored O2 SAT 95 % Comments: Room air BP Systolic 136 mm[Hg] Comments: Patient Position: Sitting; Cuff Location: Left Arm; Cuff Size: Standard BP Diastolic 84 mm[Hg] Comments: Patient Position: Sitting; Cuff Location: Left Arm; Cuff Size: Standard Weight 210.25 lb Height 66 in Body Mass Index Calculated 33.93 kg/m2 Body Surface Area Calculated 2.04 m2 :08 Temperature 97.3 f Pulse 70 /min Comments: Pattern: Regular Respiration Rate 16 /min Comments: Pattern: Unlabored BP Systolic 126 mm[Hg] Comments: Patient Position: Sitting; Cuff Location: Left Arm; Cuff Size: Large BP Diastolic 80 mm[Hg] Comments: Patient Position: Sitting; Cuff Location: Left Arm; Cuff Size: Large Weight 209 lb Height 66 in Body Mass Index Calculated 33.73 kg/m2 Body Surface Area Calculated 2.04 m2 :36 Temperature 97.8 f Comments: Method: Oral Pulse 75 /min Comments: Pattern: Regular Respiration Rate 16 /min O2 SAT 96 % Comments: Room air BP Systolic 112 mm[Hg] Comments: Patient Position: Sitting; Cuff Location: Left Arm; Cuff Size: Standard BP Diastolic 70 mm[Hg] Comments: Patient Position: Sitting; Cuff Location: Left Arm; Cuff Size: Standard Weight 205 lb Height 66 in Body Mass Index Calculated 33.09 kg/m2 Body Surface Area Calculated 2.02 m2 :26 Temperature 98 f Comments: Method: Oral Pulse 72 /min Comments: Pattern: Regular Respiration Rate 18 /min O2 SAT 98 % Comments: Room air BP Systolic 120 mm[Hg] Comments: Patient Position: Sitting; Cuff Location: Left Arm; Cuff Size: Standard BP Diastolic 78 mm[Hg] Comments: Patient Position: Sitting; Cuff Location: Left Arm; Cuff Size: Standard Weight 205 lb Height 66 in Body Mass Index Calculated 33.09 kg/m2 Body Surface Area Calculated 2.02 m2 :23 Temperature 98.4 f Pulse 68 /min Comments: Pattern: Regular Respiration Rate 16 /min Comments: Pattern: Unlabored BP Systolic 112 mm[Hg] Comments: Patient Position: Sitting; Cuff Location: Left Arm; Cuff Size: Large BP Diastolic 72 mm[Hg] Comments: Patient Position: Sitting; Cuff Location: Left Arm; Cuff Size: Large Weight 205 lb Height 66 in Body Mass Index Calculated 33.09 kg/m2 Body Surface Area Calculated 2.02 m2 :39 Temperature 97.6 f Pulse 72 /min Comments: Pattern: Regular Respiration Rate 16 /min Comments: Pattern: Unlabored BP Systolic 124 mm[Hg] Comments: Patient Position: Sitting; Cuff Location: Left Arm; Cuff Size: Large BP Diastolic 82 mm[Hg] Comments: Patient Position: Sitting; Cuff Location: Left Arm; Cuff Size: Large Weight 209 lb Height 66 in Body Mass Index Calculated 33.73 kg/m2 Body Surface Area Calculated 2.04 m2 :59 Pulse 70 /min Comments: Pattern: Regular Respiration Rate 16 /min Comments: Pattern: Unlabored O2 SAT 98 % Comments: Room air BP Systolic 122 mm[Hg] Comments: Patient Position: Sitting; Cuff Location: Left Arm; Cuff Size: Standard BP Diastolic 78 mm[Hg] Comments: Patient Position: Sitting; Cuff Location: Left Arm; Cuff Size: Standard Weight 211 lb Height 66 in Body Mass Index Calculated 34.06 kg/m2 Body Surface Area Calculated 2.05 m2 :57 Temperature 96.1 f Pulse 74 /min Comments: Pattern: Regular Respiration Rate 18 /min Comments: Pattern: Unlabored BP Systolic 114 mm[Hg] Comments: Patient Position: Sitting; Cuff Location: Left Arm; Cuff Size: Large BP Diastolic 82 mm[Hg] Comments: Patient Position: Sitting; Cuff Location: Left Arm; Cuff Size: Large Weight 206 lb Height 66 in Body Mass Index Calculated 33.25 kg/m2 Body Surface Area Calculated 2.03 m2 :35 Temperature 97.7 f Pulse 72 /min Comments: Pattern: Regular Respiration Rate 16 /min Comments: Pattern: Unlabored BP Systolic 116 mm[Hg] Comments: Patient Position: Sitting; Cuff Location: Left Arm; Cuff Size: Large BP Diastolic 72 mm[Hg] Comments: Patient Position: Sitting; Cuff Location: Left Arm; Cuff Size: Large Weight 197 lb Height 66 in Body Mass Index Calculated 31.8 kg/m2 Body Surface Area Calculated 1.99 m2 :36 Temperature 97.8 f Comments: Method: Oral Pulse 60 /min Comments: Pattern: Regular Respiration Rate 20 /min Comments: Pattern: Unlabored BP Systolic 128 mm[Hg] Comments: Patient Position: Sitting; Cuff Location: Left Arm; Cuff Size: Large BP Diastolic 84 mm[Hg] Comments: Patient Position: Sitting; Cuff Location: Left Arm; Cuff Size: Large Weight 199 lb Height 66 in Body Mass Index Calculated 32.12 kg/m2 Body Surface Area Calculated 2 m2 :00 Temperature 97.1 f Pulse 72 /min Comments: Pattern: Regular Respiration Rate 16 /min Comments: Pattern: Unlabored BP Systolic 120 mm[Hg] Comments: Patient Position: Sitting; Cuff Location: Left Arm; Cuff Size: Large BP Diastolic 88 mm[Hg] Comments: Patient Position: Sitting; Cuff Location: Left Arm; Cuff Size: Large Weight 199 lb Height 66 in Body Mass Index Calculated 32.12 kg/m2 Body Surface Area Calculated 2 m2 :41 Temperature 96.9 f Pulse 72 /min Comments: Pattern: Regular Respiration Rate 16 /min Comments: Pattern: Unlabored BP Systolic 124 mm[Hg] Comments: Patient Position: Sitting; Cuff Location: Left Arm; Cuff Size: Standard BP Diastolic 80 mm[Hg] Comments: Patient Position: Sitting; Cuff Location: Left Arm; Cuff Size: Standard Weight 209 lb Height 66 in Body Mass Index Calculated 33.73 kg/m2 Body Surface Area Calculated 2.04 m2 :30 Temperature 99.3 f Pulse 80 /min Comments: Pattern: Regular Respiration Rate 16 /min Comments: Pattern: Unlabored BP Systolic 122 mm[Hg] Comments: Patient Position: Sitting; Cuff Location: Left Arm; Cuff Size: Large BP Diastolic 84 mm[Hg] Comments: Patient Position: Sitting; Cuff Location: Left Arm; Cuff Size: Large Weight 217 lb Height 66 in Body Mass Index Calculated 35.02 kg/m2 Body Surface Area Calculated 2.07 m2 :38 Temperature 97.7 f Comments: Method: Oral Pulse 76 /min Comments: Pattern: Regular Respiration Rate 16 /min Comments: Pattern: Unlabored BP Systolic 120 mm[Hg] Comments: Patient Position: Sitting; Cuff Location: Left Arm; Cuff Size: Standard BP Diastolic 64 mm[Hg] Comments: Patient Position: Sitting; Cuff Location: Left Arm; Cuff Size: Standard Weight 215.9 lb Height 66 in Body Mass Index Calculated 34.85 kg/m2 Body Surface Area Calculated 2.07 m2 :33 Temperature 97.4 f Comments: Method: Oral Pulse 76 /min Comments: Pattern: Regular Respiration Rate 18 /min Comments: Pattern: Unlabored BP Systolic 122 mm[Hg] Comments: Patient Position: Sitting; Cuff Location: Left Arm; Cuff Size: Standard BP Diastolic 82 mm[Hg] Comments: Patient Position: Sitting; Cuff Location: Left Arm; Cuff Size: Standard Weight 202 lb :24 Temperature 97.1 f Pulse 76 /min Comments: Pattern: Regular Respiration Rate 18 /min Comments: Pattern: Unlabored BP Systolic 124 mm[Hg] Comments: Patient Position: Sitting; Cuff Location: Left Arm; Cuff Size: Large BP Diastolic 82 mm[Hg] Comments: Patient Position: Sitting; Cuff Location: Left Arm; Cuff Size: Large Weight 202 lb :24 Temperature 97.8 f Pulse 74 /min Comments: Pattern: Regular Respiration Rate 18 /min Comments: Pattern: Unlabored BP Systolic 132 mm[Hg] Comments: Patient Position: Sitting; Cuff Location: Left Arm; Cuff Size: Standard BP Diastolic 80 mm[Hg] Comments: Patient Position: Sitting; Cuff Location: Left Arm; Cuff Size: Standard Weight 202 lb :30 Temperature 98.6 f Pulse 80 /min Comments: Pattern: Regular Respiration Rate 18 /min Comments: Pattern: Unlabored BP Systolic 126 mm[Hg] Comments: Patient Position: Sitting; Cuff Location: Left Arm; Cuff Size: Large BP Diastolic 80 mm[Hg] Comments: Patient Position: Sitting; Cuff Location: Left Arm; Cuff Size: Large Weight 213 lb :39 Temperature 97.1 f Pulse 68 /min Comments: Pattern: Regular Respiration Rate 18 /min Comments: Pattern: Unlabored BP Systolic 128 mm[Hg] Comments: Patient Position: Sitting; Cuff Location: Left Arm; Cuff Size: Standard BP Diastolic 86 mm[Hg] Comments: Patient Position: Sitting; Cuff Location: Left Arm; Cuff Size: Standard :01 Temperature 96.2 f Comments: Method: Undefined Pulse 76 /min Comments: Pattern: Regular Respiration Rate 18 /min Comments: Pattern: Undefined BP Systolic 138 mm[Hg] Comments: Patient Position: Sitting; Cuff Location: Left Arm; Cuff Size: Standard BP Diastolic 90 mm[Hg] Comments: Patient Position: Sitting; Cuff Location: Left Arm; Cuff Size: Standard Weight 206 lb Height 0 in Head Circumference 0.00 cm :18 Temperature 98 f Comments: Method: Undefined Pulse 72 /min Comments: Pattern: Regular Respiration Rate 16 /min Comments: Pattern: Undefined BP Systolic 116 mm[Hg] Comments: Patient Position: Sitting; Cuff Location: Left Arm; Cuff Size: Large BP Diastolic 80 mm[Hg] Comments: Patient Position: Sitting; Cuff Location: Left Arm; Cuff Size: Large Weight 0 lb Height 0 in Head Circumference 0.00 cm :29 Temperature 98.2 f Comments: Method: Undefined Pulse 80 /min Comments: Pattern: Regular Respiration Rate 18 /min Comments: Pattern: Undefined BP Systolic 114 mm[Hg] Comments: Patient Position: Sitting; Cuff Location: Right Arm; Cuff Size: Standard BP Diastolic 62 mm[Hg] Comments: Patient Position: Sitting; Cuff Location: Right Arm; Cuff Size: Standard Weight 203 lb Height 65.5 in Body Mass Index Calculated 33.27 kg/m2 Body Surface Area Calculated 2 m2 Head Circumference 0.00 cm :14 Temperature 97 f Comments: Method: Oral Pulse 72 /min Comments: Pattern: Regular Respiration Rate 16 /min Comments: Pattern: Unlabored BP Systolic 116 mm[Hg] Comments: Patient Position: Sitting; Cuff Location: Left Arm; Cuff Size: Large BP Diastolic 82 mm[Hg] Comments: Patient Position: Sitting; Cuff Location: Left Arm; Cuff Size: Large Weight 0 lb Height 0 in Head Circumference 0.00 cm :31 Temperature 98.3 f Comments: Method: Oral Pulse 92 /min Comments: Pattern: Regular Respiration Rate 16 /min Comments: Pattern: Unlabored BP Systolic 146 mm[Hg] Comments: Patient Position: Sitting; Cuff Location: Right Arm; Cuff Size: Large BP Diastolic 88 mm[Hg] Comments: Patient Position: Sitting; Cuff Location: Right Arm; Cuff Size: Large Weight 221 lb Height 65.5 in Body Mass Index Calculated 36.22 kg/m2 Body Surface Area Calculated 2.08 m2 Head Circumference 0.00 cm :09 Pulse 70 /min Comments: Pattern: Regular Respiration Rate 20 /min Comments: Pattern: Unlabored BP Systolic 120 mm[Hg] Comments: Patient Position: Sitting; Cuff Location: Left Arm; Cuff Size: Standard BP Diastolic 74 mm[Hg] Comments: Patient Position: Sitting; Cuff Location: Left Arm; Cuff Size: Standard Weight 215.1875 lb Height 65.5 in Body Mass Index Calculated 35.26 kg/m2 Body Surface Area Calculated 2.05 m2 Head Circumference 0.00 cm :21 Temperature 98 f Comments: Method: Oral Pulse 68 /min Comments: Pattern: Regular Respiration Rate 20 /min Comments: Pattern: Unlabored BP Systolic 124 mm[Hg] Comments: Patient Position: Sitting; Cuff Location: Left Arm; Cuff Size: Standard BP Diastolic 76 mm[Hg] Comments: Patient Position: Sitting; Cuff Location: Left Arm; Cuff Size: Standard Weight 0 lb Height 0 in Head Circumference 0.00 cm :27 Temperature 97 f Comments: Method: Oral Pulse 80 /min Comments: Pattern: Regular Respiration Rate 16 /min Comments: Pattern: Unlabored BP Systolic 136 mm[Hg] Comments: Patient Position: Sitting; Cuff Location: Left Arm; Cuff Size: Standard BP Diastolic 86 mm[Hg] Comments: Patient Position: Sitting; Cuff Location: Left Arm; Cuff Size: Standard Weight 215.1875 lb Height 65.5 in Body Mass Index Calculated 35.26 kg/m2 Body Surface Area Calculated 2.05 m2 Head Circumference 0.00 cm :02 Temperature 97.7 f Comments: Method: Oral Pulse 70 /min Comments: Pattern: Regular Respiration Rate 20 /min Comments: Pattern: Unlabored BP Systolic 122 mm[Hg] Comments: Patient Position: Sitting; Cuff Location: Left Arm; Cuff Size: Standard BP Diastolic 74 mm[Hg] Comments: Patient Position: Sitting; Cuff Location: Left Arm; Cuff Size: Standard Weight 0 lb Height 0 in Head Circumference 0.00 cm :36 Temperature 98.9 f Comments: Method: Oral Pulse 68 /min Comments: Pattern: Regular Respiration Rate 16 /min Comments: Pattern: Unlabored BP Systolic 124 mm[Hg] Comments: Patient Position: Sitting; Cuff Location: Right Arm; Cuff Size: Standard BP Diastolic 76 mm[Hg] Comments: Patient Position: Sitting; Cuff Location: Right Arm; Cuff Size: Standard Weight 217 lb Height 0 in Head Circumference 0.00 cm :59 Temperature 97.7 f Comments: Method: Oral Pulse 80 /min Comments: Pattern: Regular Respiration Rate 17 /min Comments: Pattern: Unlabored BP Systolic 124 mm[Hg] Comments: Patient Position: Sitting; Cuff Location: Right Arm; Cuff Size: Standard BP Diastolic 72 mm[Hg] Comments: Patient Position: Sitting; Cuff Location: Right Arm; Cuff Size: Standard Weight 212 lb Height 65 in Body Mass Index Calculated 35.28 kg/m2 Body Surface Area Calculated 2.03 m2 Head Circumference 0.00 cm :34 Temperature 98.6 f Comments: Method: Undefined Pulse 78 /min Comments: Pattern: Regular Respiration Rate 16 /min Comments: Pattern: Undefined BP Systolic 152 mm[Hg] Comments: Patient Position: Undefined; Cuff Location: Undefined; Cuff Size: Undefined BP Diastolic 80 mm[Hg] Comments: Patient Position: Undefined; Cuff Location: Undefined; Cuff Size: Undefined Weight 0 lb Height 0 in Head Circumference 0.00 cm Results Date Description Value Details :50 HgA1C , Office (94244) HgA1C , Office 5.0 % (Normal) Range: 4.6 - 7.1 :32 CBC W/Diff, Automated Comments: CPKMB FRACTION IS NOT AVAILABLEW[facility] [id number] [place], [address] Absolute Lymph 2.30 {X10_3/ul} (Normal) Range: 0.83-4.51 Absolute Neut 3.8 {X10_3/uL} (Normal) Range: 2.0-7.7 IM GRAN % 0.300 % (Normal) Range: 0.0-0.9 Comments: IG% - Immature Granulocytes (promyelocytes, myelocytes andmetamyelocytes) > 1% indicates that a LEFT SHIFT is Present. BASO% 0.4 % (Normal) Range: 0-1 EO% 1.6 % (Normal) Range: 0-5 MONO% 7.8 % (Normal) Range: 0-10 LY% 33.9 % (Normal) Range: 19-41 NEUT% 56.0 % (Normal) Range: 47-70 MPV 9.1 fL (Normal) Range: 6.2-12.0 PLT 201 K/mm3 (Normal) Range: 150-450 RDW SD 45.5 fL (Abnormal) Range: 35.1-43.9 RDW CV 12.7 % (Normal) Range: 11.6-14.6 MCHC 33.8 {g/gl} (Normal) Range: 32-36 MCH 33.4 pg (Abnormal) Range: 27.0-32.0 MCV 99.0 fL (Normal) Range: 81-99 HCT 39.4 % (Normal) Range: 37-47 HGB 13.3 g/dL (Normal) Range: 12.0-15.0 RBC 3.98 {M/mm3} (Abnormal) Range: 4.2-5.4 WBC 6.8 K/mm3 (Normal) Range: 4.4-11.0 70-[id number]-[id number] Comprehensive Metabolic Profil Comments: CPKMB FRACTION IS NOT AVAILABLE'TROP' Serial specimen #1, #2, #3, or #4: 1W[facility] [id number] [place], [place], [id number] GAP 7 (Normal) Range: 5-15 CO2 30.0 mmol/L (Normal) Range: 21.0-32.0 CL 105 mmol/L (Normal) Range: 98-107 K 3.6 mmol/L (Normal) Range: 3.5-5.1 NA 142 mmol/L (Normal) Range: 136-145 T BILI 0.30 mg/dL (Normal) Range: 0.20-1.00 ALT 20 U/L (Normal) Range: 13-56 ALK P 89 U/L (Normal) Range: 45-117 AST 12 U/L (Abnormal) Range: 15-37 CA 8.6 mg/dL (Normal) Range: 8.5-10.1 A/G 1.1 {RATIO} (Normal) Range: 0.9-2.4 GLOB 3.3 g/dL (Normal) Range: 2.2-4.2 ALB 3.5 g/dL (Normal) Range: 3.2-5.0 T PROT 6.8 g/dL (Normal) Range: 6.4-8.2 BUN/CRE 23.2 {RATIO} (Abnormal) Range: 10-20 EST GFR - AA 101 mL/min (Normal) Comments: GFR Calc EST GFR 84 mL/min (Normal) Comments: Non- GFR Calc CREAT,SERUM 0.73 mg/dL (Normal) Range: 0.55-1.02 Comments: The validity of the calculated GFR AND GFRAA in patients over70 years has not been determined. Clinical correlation isessential. BUN 17 mg/dL (Normal) Range: 7-18 GLU 90 mg/dL (Normal) Range: 74-106 Comments: Please note revised GLUCOSE reference range [id number]/02/2018. 25-Sqo-[id number]:32 CPK Total, Creatine Kinase Comments: CPKMB FRACTION IS NOT AVAILABLE'TROP' Serial specimen #1, #2, #3, or #4: [address] [place] [id number] [id number] [place], [address] CPK TOTAL 44 U/L (Normal) Range: 26-192 78-Ywg-[id number]:32 Troponin-I Comments: CPKMB FRACTION IS NOT AVAILABLE'TROP' Serial specimen #1, #2, #3, or #4: [address] [place] [address] [id number] [place], [place], [id number] TROPONIN-I < 0.015 ng/mL (Normal) Comments: TROPONIN-I EXPECTED VALUES <0.045 Negative 0.045 - 0.590 Consistent with Cardiac Damage > OR = 0.600 Critical Value Not every elevated troponin is indicative of UT. T hesevalues should be used with clinical judgement in examiningthe patient's clinical picture for diagnosis. To establisha diagnosis of UT versus myocardial injury, there must be ademonstrated rise and/ or fall in the troponin values, inaddition to ischemic symptoms, EKG changes, new regionalwall motion abnormality, and/or angiographical evidence. PLEASE NOTE: REFERENCE RANGES EDITED 07/28/1728-Aug-[id number] TSH ([id number]) Comments: PATIENT WAS FASTINGPERFORMED BY: [employer] [id number] BY: [facility] [facility] [id number]; fu 09-01-17 KF TSH 0.340 {uIU/mL} (Abnormal) Range: 0.450-4.500 [id number] CALCIFIDIOL ([id number]) VIT D Comments: PATIENT WAS FASTINGPERFORMED BY: [employer] [id number] BY: [employer] [facility] LightingGolden Valley Memorial HospitalJhtwrk8649 [facility] [id number] 25 Vitamin D, 25-Hydroxy 37.6 ng/mL (Normal) Range: 30.0-100.0 Comments: Vitamin D deficiency has been defined by the [place] [employer] and an Endocrine Society practice guideline as alevel of serum 25-OH vitamin D less than 20 ng/mL (1,2).The Endocrine Society went on to further define vitamin Dinsufficiency as a level between 21 and 29 ng/mL (2).1. IOM ([place] [employer]). 2010. Dietary reference intakes for calcium and D. [place]: The National Academies Press.2. Fletcher MF, Edgardo NC, Dina KAPLAN, et al. Evaluation, treatment, and prevention of vitamin D deficiency: an Endocrine Society clinical practice guideline. JCEM. 2010; 96(7):1911-30. [id number] LIPOPROTEIN, BLD, BY NMR Comments: PATIENT WAS FASTINGPERFORMED BY: [employer] [id number] BY: [facility] LightingMcl[facility] Hospital6[address] [facility] [id number] ([id number]) LP-IR Score 71 (Abnormal) Comments: INSULIN RESISTANCE MARKER <--Insulin Sensitive Insulin Resistant--> Percentile in Reference PopulationInsulin Resistance ScoreLP-IR Score Low 25th 50th 75th High <27 27 45 63 >63LP-IR Score is inaccurate if patient is non-fasting. .The LP-IR score is a laboratory developed i [facility] hospital that has beenassociated with insulin resistance and diabetes risk and should beused as one component of a physician's clinical assessment. TheLP-IR score listed above has not been cleared by the [place] Food andDrug Administration. LDL Size 19.9 nm (Normal) Comments: INTERPRETATIVE INFORMATION PARTICLE CONCENTRATION AND SIZE <--Lower CVD Risk Highe r CVD Risk--> LDL AND HDL PARTICLES Percentile in Reference Population HDL-P (total) High 75th 50th 25th Low >34.9 34.9 30.5 26.7 <26.7 . Small LDL-P Low 25th 50th 75th High <117 117 527 839 >839 . LDL Size <-Large (Pattern A)-> <-Small (Pattern B)-> 23.0 20.6 20.5 19.0 Small LDL-P and LDL Size are associated with CVD risk, but not afterLDL-P is taken into account. .These assays were developed and their performance characteristicsdetermined by [employer]. These assays have not been cleared by [place] Food and Drug Administration. The clinical utility of theselaboratory values have not been fully established. Small LDL-P 969 nmol/L (Abnormal) HDL-P (Total) 37.0 umol/L (Normal) Cholesterol, Total 158 mg/dL (Normal) Range: 100-199 Triglycerides 194 mg/dL (Abnormal) Range: 0-149 HDL-C 48 mg/dL (Normal) LDL-C 71 mg/dL (Normal) Range: 0-99 Comments: . Optimal < 100 Above optimal 100 - 129 Borderline 1 30 - 159 High 160 - 189 Very high > 189 .LDL-C is inaccurate if patient is non-fasting. LDL-P 1375 nmol/L (Abnormal) Comments: Low < 1000 Moderate 1000 - 1299 Borderline-High 1300 - 1599 High 1600 - 2000 Very High > 2000 [id number]-Qgh-[id number] METABOLIC PANEL, Comments: PATIENT WAS FASTINGPERFORMED BY: [employer] [address] [id number] BY: MARCIE iQiyi70 [facility] [id number] [facility] (54638) ALT (SGPT) 16 [iU]/L (Normal) Range: 0-32 AST (SGOT) 16 [iU]/L (Normal) Range: 0-40 Alkaline Phosphatase 66 [iU]/L (Normal) Range: 39-117 Bilirubin, Total 0.5 mg/dL (Normal) Range: 0.0-1.2 A/G Ratio 1.8 (Normal) Range: 1.2-2.2 Globulin, Total 2.4 g/dL (Normal) Range: 1.5-4.5 Albumin 4.3 g/dL (Normal) Range: 3.6-4.8 Protein, Total 6.7 g/dL (Normal) Range: 6.0-8.5 Calcium 9.5 mg/dL (Normal) Range: 8.7-10.3 Carbon Dioxide, Total 25 mmol/L (Normal) Range: 20-29 Comments: Please note reference interval change Chloride 102 mmol/L (Normal) Range: 96-106 Potassium 4.4 mmol/L (Normal) Range: 3.5-5.2 Sodium 143 mmol/L (Normal) Range: 134-144 BUN/Creatinine Ratio 25 (Normal) Range: 12-28 eGFR If Africn Am 100 mL/min/1.73 (Normal) eGFR If NonAfricn Am 87 mL/min/1.73 (Normal) Creatinine 0.72 mg/dL (Normal) Range: 0.57-1.00 BUN 18 mg/dL (Normal) Range: 8-27 Glucose 85 mg/dL (Normal) Range: 65-99 71-Rhf-221179:40 CBC with auto diff Comments: PATIENT WAS FASTINGPERFORMED BY: [employer] [id number] BY: [employer] [facility] [id number] ([id number]) Immature Grans (Abs) 0.0 {x10E3/uL} (Normal) Range: 0.0-0.1 Immature Granulocytes 0 % (Normal) Baso (Absolute) 0.0 {x10E3/uL} (Normal) Range: 0.0-0.2 Eos (Absolute) 0.2 {x10E3/uL} (Normal) Range: 0.0-0.4 Monocytes(Absolute) 0.3 {x10E3/uL} (Normal) Range: 0.1-0.9 Lymphs (Absolute) 1.5 {x10E3/uL} (Normal) Range: 0.7-3.1 Neutrophils (Absolute) 2.8 {x10E3/uL} (Normal) Range: 1.4-7.0 Basos 0 % (Normal) Eos 3 % (Normal) Monocytes 6 % (Normal) Lymphs 32 % (Normal) Neutrophils 59 % (Normal) Platelets 185 {x10E3/uL} (Normal) Range: 150-379 RDW 14.0 % (Normal) Range: 12.3-15.4 MCHC 35.2 g/dL (Normal) Range: 31.5-35.7 MCH 33.0 pg (Normal) Range: 26.6-33.0 MCV 94 fL (Normal) Range: 79-97 Hematocrit 39.2 % (Normal) Range: 34.0-46.6 Hemoglobin 13.8 g/dL (Normal) Range: 11.1-15.9 RBC 4.18 {x10E6/uL} (Normal) Range: 3.77-5.28 WBC 4.8 {x10E3/uL} (Normal) Range: 3.4-10.8 04-Yxs-684197:43 Microscopic Examination Comments: PATIENT WAS FASTINGPERFORMED BY: [facility]Eizemk7853 [facility] [id number] Bacteria None seen (Normal) Mucus Threads Present (Normal) Epithelial Cells (non renal) 0-10 {/hpf} (Normal) Range: 0 - 10 RBC None seen {/hpf} (Normal) Range: 0 - 2 WBC 0-5 {/hpf} (Normal) Range: 0 - 5 62-Fbz-468367:43 CALCIFEDIOL (94700) Comments: PATIENT WAS FASTINGPERFORMED BY: [employer] Ghnjkw2015 [facility] [place] [id number] Vitamin D, 25-Hydroxy 68.6 ng/mL (Normal) Range: 30.0-100.0 Comments: Vitamin D deficiency has been defined by the [place] of[place] and an Endocrine Society practice guideline as alevel of serum 25-OH vitamin D less than 20 ng/mL (1,2).The Endocrine Society went on to further define vitamin Dinsufficiency as a level between 21 and 29 ng/mL (2).1. IOM ([place] of Medicine). 2010. Dietary reference intakes for calcium and D. [place]: The National Academies Press.2. Fletcher MF, Edgardo COOL, Dina KAPLAN, et al. Evaluation, treatment, and prevention of vitamin D deficiency: an Endocrine Society clinical practice guideline. JCEM. 2010; 96(7):1911-30. :43 TSH (05149) Comments: PATIENT WAS FASTINGPERFORMED BY: [employer] Wfckrq9443 [facility] [id number] TSH 4.800 {uIU/mL} (Abnormal) Range: 0.450-4.500 :43 URINALYSIS, W/ MICRO (26763) Comments: PATIENT WAS FASTINGPERFORMED BY: Provender6370 [facility] [id number] Microscopic Examination See below: (Normal) Comments: Microscopic was indicated and was performed. Nitrite, Urine Negative (Normal) Urobilinogen,Semi-Qn 0.2 mg/dL (Normal) Range: 0.2-1.0 Bilirubin Negative (Normal) Occult Blood 1+ (Abnormal) Ketones Negative (Normal) Glucose Negative (Normal) Protein Negative (Normal) WBC Esterase Trace (Abnormal) Appearance Clear (Normal) Urine-Color Yellow (Normal) pH 6.0 (Normal) Range: 5.0-7.5 Specific [place] 1.013 (Normal) Range: 1.005-1.030 :43 MICROALBUMIN: CREATININE RATIO Comments: PATIENT WAS FASTINGPERFORMED BY: [employer] Qsmikt2418 [facility] [id number] (97631) AND (48596) Microalb/Creat Ratio <4.4 {mg/g_creat} (Normal) Range: 0.0-30.0 Microalbumin, Urine <3.0 ug/mL (Normal) Creatinine, Urine 67.5 mg/dL (Normal) :43 METABOLIC PANEL, COMPREHENSIVE Comments: PATIENT WAS FASTINGPERFORMED BY: [employer] Yvikxk0618 [facility] [id number] (17449) ALT (SGPT) 21 [iU]/L (Normal) Range: 0-32 AST (SGOT) 23 [iU]/L (Normal) Range: 0-40 Alkaline Phosphatase, S 59 [iU]/L (Normal) Range: 39-117 Bilirubin, Total 0.4 mg/dL (Normal) Range: 0.0-1.2 A/G Ratio 1.9 (Normal) Range: 1.2-2.2 Globulin, Total 2.1 g/dL (Normal) Range: 1.5-4.5 Albumin, Serum 3.9 g/dL (Normal) Range: 3.6-4.8 Protein, Total, Serum 6.0 g/dL (Normal) Range: 6.0-8.5 Calcium, Serum 9.0 mg/dL (Normal) Range: 8.7-10.3 Carbon Dioxide, Total 28 mmol/L (Normal) Range: 18-29 Chloride, Serum 100 mmol/L (Normal) Range: 96-106 Potassium, Serum 4.0 mmol/L (Normal) Range: 3.5-5.2 Sodium, Serum 141 mmol/L (Normal) Range: 134-144 BUN/Creatinine Ratio 14 (Normal) Range: 12-28 eGFR If Africn Am 107 mL/min/1.73 (Normal) eGFR If NonAfricn Am 93 mL/min/1.73 (Normal) Creatinine, Serum 0.65 mg/dL (Normal) Range: 0.57-1.00 BUN 9 mg/dL (Normal) Range: 8-27 Glucose, Serum 87 mg/dL (Normal) Range: 65-99 90-Eek-443101:43 LIPID PANEL (51805) Comments: PATIENT WAS FASTINGPERFORMED BY: Provender6370 [facility] [id number] LDL/HDL Ratio 2.1 {ratio_units} (Normal) Range: 0.0-3.2 Comments: LDL/HDL Ratio Men Women 1/2 Avg.Risk 1.0 1.5 Av g.Risk 3.6 3.2 2X Avg.Risk 6.2 5.0 3X Avg.Risk 8.0 6.1 LDL Cholesterol Calc 81 mg/dL (Normal) Range: 0-99 VLDL Cholesterol Jorge 20 mg/dL (Normal) Range: 5-40 HDL Cholesterol 38 mg/dL (Abnormal) Triglycerides 102 mg/dL (Normal) Range: 0-149 Cholesterol, Total 139 mg/dL (Normal) Range: 100-199 03-Caz-193827:43 CBC W/AUTO DIFF WBC (38072) Comments: PATIENT WAS FASTINGPERFORMED BY: ANDalyzelin6370 [facility] [id number] Immature Grans (Abs) 0.0 {x10E3/uL} (Normal) Range: 0.0-0.1 Immature Granulocytes 0 % (Normal) Baso (Absolute) 0.0 {x10E3/uL} (Normal) Range: 0.0-0.2 Eos (Absolute) 0.1 {x10E3/uL} (Normal) Range: 0.0-0.4 Monocytes(Absolute) 0.3 {x10E3/uL} (Normal) Range: 0.1-0.9 Lymphs (Absolute) 1.5 {x10E3/uL} (Normal) Range: 0.7-3.1 Neutrophils (Absolute) 1.9 {x10E3/uL} (Normal) Range: 1.4-7.0 Basos 1 % (Normal) Eos 2 % (Normal) Monocytes 9 % (Normal) Lymphs 39 % (Normal) Neutrophils 49 % (Normal) Platelets 236 {x10E3/uL} (Normal) Range: 150-379 RDW 13.9 % (Normal) Range: 12.3-15.4 MCHC 34.0 g/dL (Normal) Range: 31.5-35.7 MCH 32.1 pg (Normal) Range: 26.6-33.0 MCV 95 fL (Normal) Range: 79-97 Hematocrit 36.5 % (Normal) Range: 34.0-46.6 Hemoglobin 12.4 g/dL (Normal) Range: 11.1-15.9 RBC 3.86 {x10E6/uL} (Normal) Range: 3.77-5.28 WBC 3.8 {x10E3/uL} (Normal) Range: 3.4-10.8 :33 C-REACTIVE PROTEIN (65011) Comments: PATIENT NOT FASTINGPERFORMED BY: [facility] Roadway LightingMclaren Bay Special Care Hospital6370 [facility] [id number] C-Reactive Protein, Quant 0.7 mg/L (Normal) Range: 0.0-4.9 :33 SED RATE ERYTHROCYTE (07888) Comments: PATIENT NOT FASTINGPERFORMED BY: [facility] Roadway LightingMclaren Bay Special Care Hospital6370 [facility] [id number] Sedimentation Rate-Westergren 3 mm/h (Normal) Range: 0-40 :33 CBC, PLATELETS & AUT DIFF Comments: PATIENT NOT FASTINGPERFORMED BY: [employer] PharmaceuticalCapital [facility] System [facility])Ieythk5779 [facility] [id number] Information: [id number] (38673) Immature Grans (Abs) 0.0 {x10E3/uL} (Normal) Range: 0.0-0.1 Immature Granulocytes 0 % (Normal) Baso (Absolute) 0.0 {x10E3/uL} (Normal) Range: 0.0-0.2 Eos (Absolute) 0.1 {x10E3/uL} (Normal) Range: 0.0-0.4 Monocytes(Absolute) 0.5 {x10E3/uL} (Normal) Range: 0.1-0.9 Lymphs (Absolute) 1.6 {x10E3/uL} (Normal) Range: 0.7-3.1 Neutrophils (Absolute) 3.3 {x10E3/uL} (Normal) Range: 1.4-7.0 Basos 0 % (Normal) Eos 2 % (Normal) Monocytes 10 % (Normal) Lymphs 29 % (Normal) Neutrophils 59 % (Normal) Platelets 223 {x10E3/uL} (Normal) Range: 150-379 RDW 14.0 % (Normal) Range: 12.3-15.4 MCHC 34.5 g/dL (Normal) Range: 31.5-35.7 MCH 33.0 pg (Normal) Range: 26.6-33.0 MCV 96 fL (Normal) Range: 79-97 Hematocrit 38.8 % (Normal) Range: 34.0-46.6 Hemoglobin 13.4 g/dL (Normal) Range: 11.1-15.9 RBC 4.06 {x10E6/uL} (Normal) Range: 3.77-5.28 WBC 5.6 {x10E3/uL} (Normal) Range: 3.4-10.8 5-Evt-031537:33 METABOLIC PANEL, COMPREHENSIVE Comments: PATIENT NOT FASTINGPERFORMED BY: [facility]Dchwat7377 [facility] [id number] (17105) ALT (SGPT) 18 [iU]/L (Normal) Range: 0-32 AST (SGOT) 20 [iU]/L (Normal) Range: 0-40 Alkaline Phosphatase, S 58 [iU]/L (Normal) Range: 39-117 Bilirubin, Total 0.4 mg/dL (Normal) Range: 0.0-1.2 A/G Ratio 1.6 (Normal) Range: 1.2-2.2 Globulin, Total 2.6 g/dL (Normal) Range: 1.5-4.5 Albumin, Serum 4.2 g/dL (Normal) Range: 3.6-4.8 Protein, Total, Serum 6.8 g/dL (Normal) Range: 6.0-8.5 Calcium, Serum 9.4 mg/dL (Normal) Range: 8.7-10.3 Carbon Dioxide, Total 25 mmol/L (Normal) Range: 18-29 Chloride, Serum 97 mmol/L (Normal) Range: 96-106 Potassium, Serum 3.8 mmol/L (Normal) Range: 3.5-5.2 Sodium, Serum 141 mmol/L (Normal) Range: 134-144 BUN/Creatinine Ratio 14 (Normal) Range: 12-28 eGFR If Africn Am 107 mL/min/1.73 (Normal) eGFR If NonAfricn Am 93 mL/min/1.73 (Normal) Creatinine, Serum 0.65 mg/dL (Normal) Range: 0.57-1.00 BUN 9 mg/dL (Normal) Range: 8-27 Glucose, Serum 76 mg/dL (Normal) Range: 65-99 :26 ANN CULTURE-STOOL (62941) Comments: PATIENT NOT FASTINGPERFORMED BY: [facility] Road[facility] LightingMclaren Bay Special Care Hospital6370 [facility] [id number] Information: SRC:ST SRC:ST E coli Shiga Toxin EIA Negative (Normal) Result 1 NCI (Normal) Comments: No Campylobacter species isolated. Campylobacter Culture Final report (Normal) Result 1 NSS (Normal) Comments: No Salmonella or Shigella recovered. Salmonella/Shigella Screen Final report (Normal) :26 Clostridium difficile Toxin Comments: PATIENT NOT FASTINGPERFORMED BY: [facility] Road[facility] LightingMcl[facility] Bay [facility] Hospital6370 [facility] [id number] A+B, EIA (44232) C difficile Toxins A+B, EIA Negative (Normal) :26 LEUKOCYTE COUNT, FECAL (11931) Comments: PATIENT NOT FASTINGPERFORMED BY: [facility] Road[facility] LightingMcl[facility] Bay Special Care Hospital6370 [facility] [id number] Result 1 NWBC (Normal) Comments: No white blood cells seen. White Blood Cells (WBC), Final report (Normal) Stool :26 OVA & PARASITE DIR SMEAR Comments: PATIENT NOT FASTINGPERFORMED BY: [employer] [id number] (76359) Result 1 NOCP (Normal) Comments: No ova, cysts, or parasites seen. Ova + Parasite Exam Final report (Normal) Comments: These results were obtained using wet preparation(s) and trichromestained smear. This test does not include testing for Cryptosporidiumparvum, Cyclospora, or Microsporidia. :44 TSH (08202) Comments: PATIENT WAS FASTINGPERFORMED BY: [employer] Road[address] LightingRonald [place] 2663470 [facility] [id number] TSH 1.290 {uIU/mL} (Normal) Range: 0.450-4.500 :44 CBC W/AUTO DIFF WBC (14860) Comments: PATIENT WAS FASTINGPERFORMED BY: [facility]6370 [facility] [id number] Immature Grans (Abs) 0.0 {x10E3/uL} (Normal) Range: 0.0-0.1 Immature Granulocytes 0 % (Normal) Baso (Absolute) 0.0 {x10E3/uL} (Normal) Range: 0.0-0.2 Eos (Absolute) 0.1 {x10E3/uL} (Normal) Range: 0.0-0.4 Monocytes(Absolute) 0.4 {x10E3/uL} (Normal) Range: 0.1-0.9 Lymphs (Absolute) 1.9 {x10E3/uL} (Normal) Range: 0.7-3.1 Neutrophils (Absolute) 3.1 {x10E3/uL} (Normal) Range: 1.4-7.0 Basos 0 % (Normal) Eos 2 % (Normal) Monocytes 8 % (Normal) Lymphs 34 % (Normal) Neutrophils 56 % (Normal) Platelets 203 {x10E3/uL} (Normal) Range: 150-379 RDW 14.1 % (Normal) Range: 12.3-15.4 MCHC 33.8 g/dL (Normal) Range: 31.5-35.7 MCH 33.1 pg (Abnormal) Range: 26.6-33.0 MCV 98 fL (Abnormal) Range: 79-97 Hematocrit 38.2 % (Normal) Range: 34.0-46.6 Hemoglobin 12.9 g/dL (Normal) Range: 11.1-15.9 RBC 3.90 {x10E6/uL} (Normal) Range: 3.77-5.28 WBC 5.6 {x10E3/uL} (Normal) Range: 3.4-10.8 67-Bun-960025:44 METABOLIC PANEL, COMPREHENSIVE Comments: PATIENT WAS FASTINGPERFORMED BY: [facility]6370 [facility] [id number] (22807) ALT (SGPT) 10 [iU]/L (Normal) Range: 0-32 AST (SGOT) 13 [iU]/L (Normal) Range: 0-40 Alkaline Phosphatase, S 60 [iU]/L (Normal) Range: 39-117 Bilirubin, Total 0.4 mg/dL (Normal) Range: 0.0-1.2 A/G Ratio 2.0 (Normal) Range: 1.2-2.2 Globulin, Total 2.2 g/dL (Normal) Range: 1.5-4.5 Albumin, Serum 4.3 g/dL (Normal) Range: 3.6-4.8 Protein, Total, Serum 6.5 g/dL (Normal) Range: 6.0-8.5 Calcium, Serum 9.1 mg/dL (Normal) Range: 8.7-10.3 Carbon Dioxide, Total 25 mmol/L (Normal) Range: 18-29 Chloride, Serum 99 mmol/L (Normal) Range: 96-106 Potassium, Serum 4.1 mmol/L (Normal) Range: 3.5-5.2 Sodium, Serum 138 mmol/L (Normal) Range: 134-144 BUN/Creatinine Ratio 21 (Normal) Range: 12-28 eGFR If Africn Am 107 mL/min/1.73 (Normal) eGFR If NonAfricn Am 93 mL/min/1.73 (Normal) Creatinine, Serum 0.67 mg/dL (Normal) Range: 0.57-1.00 BUN 14 mg/dL (Normal) Range: 8-27 Glucose, Serum 91 mg/dL (Normal) Range: 65-99 69-Hfw-472099:44 LIPID PANEL (79805) Comments: PATIENT WAS FASTINGPERFORMED BY: MARCIE [facility]Ybfvld4603 [facility] [id number]; non-emergent till apt tomorrow LDL/HDL Ratio 3.3 {ratio_units} (Abnormal) Range: 0.0-3.2 Comments: LDL/HDL Ratio Men Women 1/2 Avg.Risk 1.0 1.5 Av g.Risk 3.6 3.2 2X Avg.Risk 6.2 5.0 3X Avg.Risk 8.0 6.1 LDL Cholesterol Calc 165 mg/dL (Abnormal) Range: 0-99 VLDL Cholesterol Jorge 31 mg/dL (Normal) Range: 5-40 HDL Cholesterol 50 mg/dL (Normal) Triglycerides 153 mg/dL (Abnormal) Range: 0-149 Cholesterol, Total 246 mg/dL (Abnormal) Range: 100-199 29-Fos-98142:59 TSH (35228) Comments: PATIENT WAS FASTINGPERFORMED BY: MARCIE [facility]Fwaetg9391 [facility] [id number] TSH 0.081 {uIU/mL} (Abnormal) Range: 0.450-4.500 :59 Vitamin D Hydroxy (64168) Comments: PATIENT WAS FASTINGPERFORMED BY: [facility]Bwjgsu6565 [facility] [id number] Vitamin D, 25-Hydroxy 42.0 ng/mL (Normal) Range: 30.0-100.0 Comments: Vitamin D deficiency has been defined by the [place] of[place]icine and an Endocrine Society practice guideline as alevel of serum 25-OH vitamin D less than 20 ng/mL (1,2).The Endocrine Society went on to further define vitamin Dinsufficiency as a level between 21 and 29 ng/mL (2).1. IOM ([place] of Medicine). 2010. Dietary reference intakes for calcium and D. [place]: The National Academies Press.2. Fletcher MF, Edgardo COOL, Dina KAPLAN, et al. Evaluation, treatment, and prevention of vitamin D deficiency: an Endocrine Society clinical practice guideline. JCEM. 2010; 96(7):1911-30. :59 LIPID PANEL (93151) Comments: PATIENT WAS FASTINGPERFORMED BY: [facility]Zondie1689 [facility] [id number] Information: [id number] LDL/HDL Ratio 2.8 {ratio_units} (Normal) Range: 0.0-3.2 Comments: LDL/HDL Ratio Men Women 1/2 Avg.Risk 1.0 1.5 Av g.Risk 3.6 3.2 2X Avg.Risk 6.2 5.0 3X Avg.Risk 8.0 6.1 LDL Cholesterol Calc 145 mg/dL (Abnormal) Range: 0-99 VLDL Cholesterol Jorge 33 mg/dL (Normal) Range: 5-40 HDL Cholesterol 51 mg/dL (Normal) Comments: According to ATP-III Guidelines, HDL-C >59 mg/dL is considered anegative risk factor for CHD. Triglycerides 163 mg/dL (Abnormal) Range: 0-149 Cholesterol, Total 229 mg/dL (Abnormal) Range: 100-199 43-Kna-411663:56 Allergen, Rast Food Profile Comments: Test performed at:[facility] [address]wt[address]ztk[address] [place], [place] [id number] RAST COMMENT Comment (Normal) Comments: Levels of Specific IgE Class Description of Class ----- < 0.10 0 Negative 0.10 - 0.31 0/I Equivocal/Low 0.32 - 0.55 I Low 0.56 - 1.40 II Moderate 1.41 - 3.90 III High 3.91 - 19.00 IV Very High 19.01 - 100.00 V Very High >100.00 Very High FISH/SHELL MIX Negative (Normal) Comments: Allergens in this mix are: Blue mussel Fish [place] Shrimp Tuna EGG, WHOLE <0.10 kU/L (Normal) CHOCOLATE <0.10 kU/L (Normal) Comments: Performed at: [facility] [id number] Director: Vaughn Garsia MD, Phone: [phone] BEEF <0.10 kU/L (Normal) PORK <0.10 kU/L (Normal) SOYBEAN <0.10 kU/L (Normal) PEANUT <0.10 kU/L (Normal) CORN <0.10 kU/L (Normal) WHEAT <0.10 kU/L (Normal) MILK (COW) <0.10 kU/L (Normal) 86-Zdb-31237:38 URINE ANN CULTURE-FILOMENA COL Comments: PATIENT NOT FASTINGPERFORMED BY: [facility]Ulacuh2598 [facility] Hospitalkaren [place] [id number] Information: SRC:[facility] [id number] COUNT (02134) Antimicrobial MIHEAD (Normal) Comments: S = Susceptible; I = Intermediate; R = Resistant P = Positive; N = Negative MICS are expressed in micrograms per mL Antibiotic RSLT#1 RSLT#2 Susceptibility RSLT#3 RSLT#4Amoxicillin/Clavulanic Acid IAmpicillin RCefazolin RCefepime SCeftriaxone SCefuroxime SCephalothin RCiprofloxacin SErtapenem SGentamicin SImipenem SLevofloxacin S Nitrofurantoin SPiperacillin RTetracycline RTobramycin STrimethoprim/Sulfa R Result 1 Escherichia coli Comments: 50,000-100,000 colony forming units per mL (Abnormal) Urine Final report Culture,Comprehensive (Abnormal) [id number]-Pbm-[id number]:11 Urinalysis, Office (19648) UA - LEUKOCYTE ESTERASE Large (Normal) UA - NITRITE Negative (Normal) URINE UROBILINGN FILOMENA TIMED Normal mg/dL (Normal) UA - PROTEIN Negative mg/dL (Normal) UA - PH 5.0 (Normal) UA - BLOOD Non Hemolyzed Moderate (Normal) UA - SPECIFIC GRAVITY 1.015 (Normal) UA - KETONES Negative mg/dL (Normal) UA - BILIRUBIN Negative (Normal) UA - GLUCOSE Negative (Normal) 9-Lvf-285366:33 Comprehensive Metabolic Profil Comments: Test performed at:[facility] Hpqrarsrli[address] [place], [place] [address] GAP 4 (Abnormal) Range: 5-15 CO2 31.0 mmol/L (Normal) Range: 21.0-32.0 CL 102 mmol/L (Normal) Range: 98-107 K 4.1 mmol/L (Normal) Range: 3.5-5.1 NA 137 mmol/L (Normal) Range: 136-145 T BILI 0.40 mg/dL (Normal) Range: 0.00-4.00 ALT 21 U/L (Normal) Range: 12-78 ALK P 56 U/L (Normal) Range: 50-136 AST 9 U/L (Abnormal) Range: 15-37 CA 9.1 mg/dL (Normal) Range: 8.5-10.1 A/G 1.1 {RATIO} (Normal) Range: 0.9-2.4 GLOB 3.2 g/dL (Normal) Range: 2.7-4.2 ALB 3.4 g/dL (Normal) Range: 3.4-5.0 T PROT 6.6 g/dL (Normal) Range: 6.4-8.2 BUN/CRE 16.3 {RATIO} (Normal) Range: 10-20 EST GFR - AA 93 mL/min (Normal) EST GFR 77 mL/min (Normal) CREAT,SERUM 0.8 mg/dL (Normal) Range: 0.6-1.0 BUN 13 mg/dL (Normal) Range: 7-18 GLU 89 mg/dL (Normal) Range: 70-110 :33 Lipid Profile Comments: Test performed at:[facility] Dzpufqoptf0317 [place], [place] [id number] VLDL 31 mg/dL (Normal) Range: 5-40 LDL 143 mg/dL (Abnormal) Range: 0-130 HDL 50 mg/dL (Normal) Comments: Reference Range HDL <40 mg/dL Low HDL Cholesterol HDL >or= 60 mg/dL High HDL Cholesterol TRIG 156 mg/dL (Normal) Range: 0-199 Comments: Serum Triglycerides Reference Interval Normal <150 mg/dL Borderline high 150 - 199 mg/dL High 200 - 499 mg/dL Very High > or = 500 mg/dL CHOL 224 mg/dL (Abnormal) Comments: <200 mg/dL Desirable 200-240 mg/dL Borderline >240 mg/dL High Risk [id number]-Kjc-[id number]:33 Thyroid Stim Hormone (TSH) Comments: Test performed at:[facility] Rzcycagigf0453 [place], [place] [id number] TSH 3.03 {uIU/mL} (Normal) Range: 0.358-3.74 :57 TSH (24935) Comments: PATIENT WAS FASTINGPERFORMED BY: LabCoUNM Psychiatric CenterOdpicp5460 [facility] [id number] TSH 7.420 {uIU/mL} (Abnormal) Range: 0.450-4.500 :57 METABOLIC PANEL, Comments: PATIENT WAS FASTINGPERFORMED BY: [facility]Ymzopw5885 [facility] [id number] Information: [id number] COMPREHENSIVE (57266) ALT (SGPT) 10 [iU]/L (Normal) Range: 0-32 AST (SGOT) 16 [iU]/L (Normal) Range: 0-40 Alkaline Phosphatase, S 54 [iU]/L (Normal) Range: 39-117 Bilirubin, Total 0.5 mg/dL (Normal) Range: 0.0-1.2 A/G Ratio 1.9 (Normal) Range: 1.1-2.5 Globulin, Total 2.3 g/dL (Normal) Range: 1.5-4.5 Albumin, Serum 4.4 g/dL (Normal) Range: 3.6-4.8 Protein, Total, Serum 6.7 g/dL (Normal) Range: 6.0-8.5 Calcium, Serum 9.7 mg/dL (Normal) Range: 8.7-10.3 Carbon Dioxide, Total 27 mmol/L (Normal) Range: 18-29 Chloride, Serum 98 mmol/L (Normal) Range: 97-108 Potassium, Serum 4.0 mmol/L (Normal) Range: 3.5-5.2 Sodium, Serum 140 mmol/L (Normal) Range: 134-144 BUN/Creatinine Ratio 30 (Abnormal) Range: 11-26 eGFR If Africn Am 106 mL/min/1.73 (Normal) eGFR If NonAfricn Am 92 mL/min/1.73 (Normal) Creatinine, Serum 0.69 mg/dL (Normal) Range: 0.57-1.00 BUN 21 mg/dL (Normal) Range: 8-27 Glucose, Serum 84 mg/dL (Normal) Range: 65-99 :57 LIPID PANEL ([id number]) Comments: PATIENT WAS FASTINGPERFORMED BY: [facility][id number] [facility] [id number] LDL/HDL Ratio 4.1 {ratio_units} (Abnormal) Range: 0.0-3.2 Comments: LDL/HDL Ratio Men Women 1/2 Avg.Risk 1.0 1.5 Av g.Risk 3.6 3.2 2X Avg.Risk 6.2 5.0 3X Avg.Risk 8.0 6.1 LDL Cholesterol Calc 205 mg/dL (Abnormal) Range: 0-99 VLDL Cholesterol Jorge 25 mg/dL (Normal) Range: 5-40 HDL Cholesterol 50 mg/dL (Normal) Comments: According to ATP-III Guidelines, HDL-C >59 mg/dL is considered anegative risk factor for CHD. Triglycerides 124 mg/dL (Normal) Range: 0-149 Cholesterol, Total 280 mg/dL (Abnormal) Range: 100-199 [id number] CMP GAP 7 (Normal) Range: 5-15 CO2 30.0 mmol/L (Normal) Range: 21.0-32.0 CL 104 mmol/L (Normal) Range: 98-107 K 4.1 mmol/L (Normal) Range: 3.5-5.1 NA 141 mmol/L (Normal) Range: 136-145 BIT 0.60 mg/dL (Normal) Range: 0.00-1.00 ALT 21 U/L (Normal) Range: 12-78 ALK 59 U/L (Normal) Range: 45-117 AST 17 U/L (Normal) Range: 15-37 CA 9.4 mg/dL (Normal) Range: 8.5-10.1 AG 1.0 {RATIO} (Normal) Range: 0.9-2.4 GLOB 3.4 g/dL (Normal) Range: 2.7-4.2 ALB 3.4 g/dL (Normal) Range: 3.4-5.0 TPROT 6.8 g/dL (Normal) Range: 6.4-8.2 BC 20.0 {RATIO} (Normal) Range: 10-20 GFRAA 109 mL/min (Normal) GFR 90 mL/min (Normal) CREAT 0.7 mg/dL (Normal) Range: 0.6-1.0 BUN 14 mg/dL (Normal) Range: 7-18 GLU 85 mg/dL (Normal) Range: 70-110 40-Swp-492074:09 LIPID VLDL 39 mg/dL (Normal) Range: 5-40 LDL 173 mg/dL (Abnormal) Range: 0-130 HDL 48 mg/dL (Normal) Comments: Reference RangeHDL <40 mg/dL Low HDL CholesterolHDL >or= 60 mg/dL High HDL Cholesterol TRIG 193 mg/dL (Normal) Range: 0-199 Comments: Serum Triglycerides Reference IntervalNormal <150 mg/dLBorderline high 150 - 199 mg/dLHigh 200 - 499 mg/ dLVery High > or = 500 mg/dL CHOL 260 mg/dL (Abnormal) Comments: <200 mg/dL Iovpinghi317-601 mg/dL Borderline>240 mg/dL High Risk 36-Hcd-412301:09 VITD 49.6 mg/mL (Normal) Comments: Vitamin D 25(OH) Status RangeDeficiency <20 ng/mL (50nmol/L)Insuffciency 20 - 30 ng/mL (50 - 75 nmol/L)Sufficiency 30 - 100 ng/mL (75 - 250 nmol/L)Toxicity >100 ng/mL (>250 nmol/L) 92-Ufp-477641:14 CMP GAP 5 (Normal) Range: 5-15 CO2 31.0 mmol/L (Normal) Range: 21.0-32.0 CL 105 mmol/L (Normal) Range: 98-107 K 3.8 mmol/L (Normal) Range: 3.5-5.1 NA 141 mmol/L (Normal) Range: 136-145 BIT 0.50 mg/dL (Normal) Range: 0.00-1.00 ALT 19 U/L (Normal) Range: 12-78 ALK 65 U/L (Normal) Range: 50-136 AST 14 U/L (Abnormal) Range: 15-37 CA 8.8 mg/dL (Normal) Range: 8.5-10.1 AG 1.0 {RATIO} (Normal) Range: 0.9-2.4 GLOB 3.5 g/dL (Normal) Range: 2.7-4.2 ALB 3.5 g/dL (Normal) Range: 3.4-5.0 TPROT 7.0 g/dL (Normal) Range: 6.4-8.2 BC 17.1 {RATIO} (Normal) Range: 10-20 GFRAA 109 mL/min (Normal) GFR 90 mL/min (Normal) CREAT 0.7 mg/dL (Normal) Range: 0.6-1.0 BUN 12 mg/dL (Normal) Range: 7-18 GLU 90 mg/dL (Normal) Range: 70-110 88-Hxg-937625:14 LIPID VLDL 36 mg/dL (Normal) Range: 5-40 HDL 49 mg/dL (Normal) Comments: Reference RangeHDL <40 mg/dL Low HDL CholesterolHDL >or= 60 mg/dL High HDL Cholesterol LDL 172 mg/dL (Abnormal) Range: 0-130 TRIG 180 mg/dL (Normal) Range: 0-199 Comments: Serum Triglycerides Reference IntervalNormal <150 mg/dLBorderline high 150 - 199 mg/dLHigh 200 - 499 mg/ dLVery High > or = 500 mg/dL CHOL 257 mg/dL (Abnormal) Comments: <200 mg/dL Ysfwwdhko553-236 mg/dL Borderline>240 mg/dL High Risk 75-Ofu-874245:14 TSH 2.38 {uIU/mL} (Normal) Range: 0.358-3.74 25-Bry-863341:14 VITD 25.6 mg/mL (Normal) Comments: Vitamin D 25(OH) Status RangeDeficiency <20 ng/mL (50nmol/L)Insuffciency 20 - 30 ng/mL (50 - 75 nmol/L)Sufficiency 30 - 100 ng/mL (75 - 250 nmol/L)Toxicity >100 ng/mL (>250 nmol/L) 06-Tnw-602189:56 Urinalysis, Office (60447) UA - BILIRUBIN Negative (Normal) UA - BLOOD Non Hemolyzed Moderate (Normal) UA - GLUCOSE Negative (Normal) UA - KETONES Negative mg/dL (Normal) UA - LEUKOCYTE ESTERASE Moderate (Normal) UA - NITRITE Negative (Normal) UA - PH 5.0 (Normal) Comments: 5.5 UA - PROTEIN Negative mg/dL (Normal) UA - SPECIFIC GRAVITY 1.010 (Normal) URINE UROBILINGN FILOMENA TIMED Normal mg/dL (Normal) 18-Ywk-12560:57 CMP GAP 6 (Normal) Range: 5-15 CO2 30.0 mmol/L (Normal) Range: 21.0-32.0 CL 105 mmol/L (Normal) Range: 98-107 K 4.2 mmol/L (Normal) Range: 3.5-5.1 NA 141 mmol/L (Normal) Range: 136-145 BIT 0.40 mg/dL (Normal) Range: 0.00-1.00 ALT 18 U/L (Normal) Range: 12-78 ALK 66 U/L (Normal) Range: 50-136 AST 9 U/L (Abnormal) Range: 15-37 CA 8.9 mg/dL (Normal) Range: 8.5-10.1 AG 1.0 {RATIO} (Normal) Range: 0.9-2.4 GLOB 3.2 g/dL (Normal) Range: 2.7-4.2 ALB 3.3 g/dL (Abnormal) Range: 3.4-5.0 TPROT 6.5 g/dL (Normal) Range: 6.4-8.2 BC 20.0 {RATIO} (Normal) Range: 10-20 GFRAA 93 mL/min (Normal) GFR 77 mL/min (Normal) CREAT 0.8 mg/dL (Normal) Range: 0.6-1.0 BUN 16 mg/dL (Normal) Range: 7-18 GLU 89 mg/dL (Normal) Range: 70-110 :57 LIPID VLDL 33 mg/dL (Normal) Range: 5-40 LDL 179 mg/dL (Abnormal) Range: 0-130 HDL 45 mg/dL (Normal) Comments: Reference RangeHDL <40 mg/dL Low HDL CholesterolHDL >or= 60 mg/dL High HDL Cholesterol TRIG 163 mg/dL (Normal) Range: 0-199 Comments: Serum Triglycerides Reference IntervalNormal <150 mg/dLBorderline high 150 - 199 mg/dLHigh 200 - 499 mg/ dLVery High > or = 500 mg/dL CHOL 257 mg/dL (Abnormal) Comments: <200 mg/dL Lnuvzyzsh185-766 mg/dL Borderline>240 mg/dL High Risk :57 TSH 3.02 {uIU/mL} (Normal) Range: 0.358-3.74 :51 LIPID PANEL (03184) Comments: PATIENT WAS FASTINGPERFORMED BY: [facility] [id number] LDL/HDL Ratio 2.9 {ratio_units} (Normal) Range: 0.0-3.2 LDL Cholesterol Calc 163 mg/dL (Abnormal) Range: 0-99 HDL Cholesterol 57 mg/dL (Normal) Comments: According to ATP-III Guidelines, HDL-C >59 mg/dL is considered anegative risk factor for CHD. VLDL Cholesterol Jorge 22 mg/dL (Normal) Range: 5-40 Triglycerides 111 mg/dL (Normal) Range: 0-149 Cholesterol, Total 242 mg/dL (Abnormal) Range: 100-199 :51 METABOLIC PANEL, Comments: PATIENT WAS FASTINGPERFORMED BY: [facility] [facility] [id number] [facility] [id number] Information: [id number] COMPREHENSIVE (00524) ALT (SGPT) 11 [iU]/L (Normal) Range: 0-32 AST (SGOT) 14 [iU]/L (Normal) Range: 0-40 Alkaline Phosphatase, S 54 [iU]/L (Normal) Range: 25-165 A/G Ratio 1.8 (Normal) Range: 1.1-2.5 Bilirubin, Total 0.3 mg/dL (Normal) Range: 0.0-1.2 Globulin, Total 2.3 g/dL (Normal) Range: 1.5-4.5 Albumin, Serum 4.2 g/dL (Normal) Range: 3.6-4.8 Protein, Total, Serum 6.5 g/dL (Normal) Range: 6.0-8.5 Calcium, Serum 9.4 mg/dL (Normal) Range: 8.6-10.2 Carbon Dioxide, Total 25 mmol/L (Normal) Range: 20-32 Chloride, Serum 103 mmol/L (Normal) Range: 97-108 Potassium, Serum 4.1 mmol/L (Normal) Range: 3.5-5.2 Sodium, Serum 139 mmol/L (Normal) Range: 134-144 BUN/Creatinine Ratio 22 (Normal) Range: 11-26 eGFR If Africn Am 103 mL/min/1.73 (Normal) eGFR If NonAfricn Am 89 mL/min/1.73 (Normal) Creatinine, Serum 0.73 mg/dL (Normal) Range: 0.57-1.00 BUN 16 mg/dL (Normal) Range: 8-27 Glucose, Serum 85 mg/dL (Normal) Range: 65-99 79-Lwr-708641:13 HIP, MIN 2 VIEWS Radiology Report See Note (Normal) Comments: PROCEDURE: X-RAY - RIGHT HIP REASON FOR EXAM: Female, 61 years old. Hip pain. TECHNIQUE: Two views of the hip. COMPARISON: Comparison is made with prior study dated June 23, 1999.Thetip FINDING S: Normal femoral head, neck, intertrochanteric region and visualizedproximalfemur. Normal acetabulum. Normal hip joint. Normal visualized superior and inferior pubic rami and ischialtuberosities. IMP RESSION:Normal x-ray examination of the hip. Signed:Hi Reynoso M.D.December 03, 2011 at 12:32:11 PM [id number] Signed GP/GP If you are the referring physician and would like to consult with theradiologist who provided this interpretation, please contact Aishwarya Rendon at [phone]. If this radiologist is unavailable, youwill be directed to another radiologist t o assist. If you are a patient with a question regarding this report, pleasecontactyour referring physician directly. Professional Interpretation Provided By: [employer], Phone ,Fax These documents contain legally protected and confidential healthinformation intended only for the use of the individual or entity namedabove. If you are not the intended recipient, you are here by notifiedthatany disclosure, copying, distribution, or other use of these documents isstrictly prohibited. If you have received this information in error,pleasenotify the sender immediately and arrang e for the return or destructionofthese documents. Dictated on 12/02/11 1711 by Gely Reynoso MDranscribed on 12/03/11 1239 by ITS IMPORTSign by Hi Reynoso MD on 12/03/11 1240 Sign b y: Hi Reynoso MD 24-Jpt-527484:13 HIP, MIN 2 VIEWS Radiology Report See Note (Normal) Comments: PROCEDURE: X-RAY - LEFT HIP REASON FOR EXAM: Female, 61 years old. Hip pain. TECHNIQUE: Two views of the hip. COMPARISON: None. FINDINGS: Normal femoral head, neck, intertrochanteric region and visualizedproximalfemur. Normal acetabulum. Normal hip joint. Normal visualized superior and inferior pubic rami and ischialtuberosities. IMPRESSION:Normal x- ray examination of the hip. Signed:Bing Nguyen M.D.December 03, 2011 at 12:33:05 PM [id number] Signed GP/GP If you are the referring physician and would like to consult with theradiologist who provided this interpre tation, please contact Aishwarya Rendon at [phone]. If this radiologist is unavailable, youwill be directed to another radiologist to assist. If you are a patient with a question regarding t his report, pleasecontactyour referring physician directly. Professional Interpretation Provided By: [employer], Phone , These documents contain legally protected and conf idential healthinformation intended only for the use of the individual or entity namedabove. If you are not the intended recipient, you are hereby notifiedthatany disclosure, copying, distribution, or o ther use of these documents isstrictly prohibited. If you have received this information in error,pleasenotify the sender immediately and arrange for the return or destructionofthese documents. Dicta cristiane on 12/02/111710 by Shiva SALAZAR,DougrieleTranscribed on 12/03/111918 by ITS IMPORTSign by Shiva SALAZAR,Hi on 12/03/111919 Sign by: Hi Reynoso MD 04-Ldj-17257:48 METABOLIC PANEL, Comments: PATIENT WAS FASTINGPERFORMED BY: [facility][id number] [facility] [id number] Information: [id number] COMPREHENSIVE (10083) ALT (SGPT) 10 [iU]/L (Normal) Range: 0-32 AST (SGOT) 11 [iU]/L (Normal) Range: 0-40 Alkaline Phosphatase, S 54 [iU]/L (Normal) Range: 25-165 Bilirubin, Total 0.6 mg/dL (Normal) Range: 0.0-1.2 A/G Ratio 1.6 (Normal) Range: 1.1-2.5 Globulin, Total 2.5 g/dL (Normal) Range: 1.5-4.5 Albumin, Serum 4.0 g/dL (Normal) Range: 3.6-4.8 Protein, Total, Serum 6.5 g/dL (Normal) Range: 6.0-8.5 Calcium, Serum 9.6 mg/dL (Normal) Range: 8.6-10.2 Carbon Dioxide, Total 27 mmol/L (Normal) Range: 20-32 Chloride, Serum 102 mmol/L (Normal) Range: 97-108 Potassium, Serum 4.1 mmol/L (Normal) Range: 3.5-5.2 Sodium, Serum 141 mmol/L (Normal) Range: 134-144 BUN/Creatinine Ratio 18 (Normal) Range: 11-26 eGFR If Africn Am 92 mL/min/1.73 (Normal) eGFR If NonAfricn Am 80 mL/min/1.73 (Normal) Creatinine, Serum 0.80 mg/dL (Normal) Range: 0.57-1.00 BUN 14 mg/dL (Normal) Range: 8-27 Glucose, Serum 80 mg/dL (Normal) Range: 65-99 :48 TSH (82806) Comments: PATIENT WAS FASTINGPERFORMED BY: [facility] [id number] [facility] [id number] TSH 2.860 {uIU/mL} (Normal) Range: 0.450-4.500 :48 LIPID PANEL (28120) Comments: PATIENT WAS FASTINGPERFORMED BY: [employer] [id number] [facility] [id number] LDL/HDL Ratio 2.7 {ratio_units} (Normal) Range: 0.0-3.2 LDL Cholesterol Calc 161 mg/dL (Abnormal) Range: 0-99 VLDL Cholesterol Jorge 35 mg/dL (Normal) Range: 5-40 HDL Cholesterol 60 mg/dL (Normal) Comments: According to ATP-III Guidelines, HDL-C >59 mg/dL is considered anegative risk factor for CHD. Triglycerides 174 mg/dL (Abnormal) Range: 0-149 Cholesterol, Total 256 mg/dL (Abnormal) Range: 100-199 :08 [facility] Culture exhibits no growth. (Normal) :08 LIPID VLDL 28 mg/dL (Normal) Range: 5-40 LDL 168 mg/dL (Abnormal) Range: 0-130 HDL 44 mg/dL (Normal) Comments: Reference Range HDL <40 mg/dL Low HDL Cholesterol HDL >or= 60 mg/dL High HDL Cholesterol TRIG 140 mg/dL (Normal) Comments: Serum Triglycerides Reference Interval Normal <150 mg/dL Borderline high 150 - 199 mg/dL High 200 - 499 mg/dL Very High > or = 500 mg/dL CHOL 240 mg/dL (Abnormal) Comments: <200 mg/dL Desirable 200-240 mg/dL Borderline >240 mg/dL High Risk :08 LIVER BID 0.09 mg/dL (Normal) Range: 0.00-0.30 BIT 0.50 mg/dL (Normal) Range: 0.00-1.00 ALT 21 U/L (Normal) Range: 12-78 ALK 56 U/L (Normal) Range: 50-136 AST 10 U/L (Abnormal) Range: 15-37 ALB 3.5 g/dL (Normal) Range: 3.4-5.0 TPROT 7.1 g/dL (Normal) Range: 6.4-8.2 :43 [facility] See Note {CFU/mL} (Normal) Comments: COLONY COUNT 1000- 10,000 ORGANISM 1: MIXED GRAM POSITIVE ORGANISMS 18-Ybq-364253:33 Urinalysis, Office (74498) UA - BILIRUBIN Negative (Normal) UA - BLOOD Hemolyzed Small (Normal) UA - GLUCOSE Negative (Normal) UA - KETONES Negative mg/dL (Normal) UA - LEUKOCYTE ESTERASE Small (Normal) UA - NITRITE Negative (Normal) UA - PH 6.0 (Normal) UA - PROTEIN Negative mg/dL (Normal) UA - SPECIFIC GRAVITY 1.015 (Normal) URINE UROBILINGN FILOMENA TIMED Normal mg/dL (Normal) :22 CBCMD RBCM NORM C+C {NORMAL} (Normal) PE ADEQUATE (Normal) EOS 3 % (Normal) Range: 0-5 MON 6 % (Normal) Range: 0-10 LYMPH 33 % (Normal) Range: 19-41 PMN 58 % (Normal) Range: 47-70 GURWINDER 100 (Normal) ANC 2.7 3/uL (Normal) Range: 2.0-7.7 PLT 217 K/mm3 (Normal) Range: 150-450 RDW 13.6 % (Normal) Range: 11.6-14.6 MCHC 35.5 g/dL (Normal) Range: 32-36 MCH 35.4 pg (Abnormal) Range: 27.0-32.0 MCV 99.7 fL (Abnormal) Range: 81-99 HCT 38.9 % (Normal) Range: 37-47 HGB 13.8 g/dL (Normal) Range: 12.0-16.0 RBC 3.91 {M/mm3} (Abnormal) Range: 4.2-5.4 WBC 4.7 K/mm3 (Normal) Range: 4.4-11.0 :22 CMP Comments: appt 07/29/11 GAP 11 (Normal) Range: 5-15 CO2 29.0 mmol/L (Normal) Range: 21.0-32.0 CL 102 mmol/L (Normal) Range: 98-107 K 3.9 mmol/L (Normal) Range: 3.5-5.1 NA 142 mmol/L (Normal) Range: 136-145 BIT 0.50 mg/dL (Normal) Range: 0.00-1.00 ALT 17 U/L (Normal) Range: 12-78 ALK 51 U/L (Normal) Range: 50-136 AST 9 U/L (Abnormal) Range: 15-37 CA 9.1 mg/dL (Normal) Range: 8.5-10.1 AG 1.1 {RATIO} (Normal) Range: 0.9-2.4 GLOB 3.5 g/dL (Normal) Range: 2.7-4.2 ALB 3.7 g/dL (Normal) Range: 3.4-5.0 TPROT 7.2 g/dL (Normal) Range: 6.4-8.2 BC 21.4 {RATIO} (Abnormal) Range: 10-20 GFRAA 110 mL/min (Normal) GFR 91 mL/min (Normal) CREAT 0.7 mg/dL (Normal) Range: 0.6-1.0 BUN 15 mg/dL (Normal) Range: 7-18 GLU 90 mg/dL (Normal) Range: 70-110 :22 LIPID VLDL 34 mg/dL (Normal) Range: 5-40 LDL 159 mg/dL (Abnormal) Range: 0-130 HDL 38 mg/dL (Abnormal) Comments: Reference Range HDL <40 mg/dL Low HDL Cholesterol HDL >or= 60 mg/dL High HDL Cholesterol TRIG 172 mg/dL (Normal) Comments: Serum Triglycerides Reference Interval Normal <150 mg/dL Borderline high 150 - 199 mg/dL High 200 - 499 mg/dL Very High > or = 500 mg/dL CHOL 231 mg/dL (Abnormal) Comments: <200 mg/dL Desirable 200-240 mg/dL Borderline >240 mg/dL High Risk :22 TSH 2.46 {uIU/mL} (Normal) Range: 0.358-3.74 :59 COMP METABOLIC GAP 9 (Normal) Range: 5-15 CO2 31.0 mmol/L (Normal) Range: 21.0-32.0 CL 100 mmol/L (Normal) Range: 98-107 K 3.9 mmol/L (Normal) Range: 3.5-5.1 NA 140 mmol/L (Normal) Range: 136-145 T BILI 0.60 mg/dL (Normal) Range: 0.00-1.00 ALT 23 U/L (Normal) Range: 12-78 ALK P 62 U/L (Normal) Range: 50-136 AST 17 U/L (Normal) Range: 15-37 CA 8.8 mg/dL (Normal) Range: 8.5-10.1 A/G 1.0 {RATIO} (Normal) Range: 0.9-2.4 GLOB 3.6 g/dL (Normal) Range: 2.7-4.2 ALB 3.7 g/dL (Normal) Range: 3.4-5.0 T PROT 7.3 g/dL (Normal) Range: 6.4-8.2 BUN/CRE 18.8 {RATIO} (Normal) Range: 10-20 EST GFR - AA 95 mL/min (Normal) EST GFR 78 mL/min (Normal) CREAT,SERUM 0.8 mg/dL (Normal) Range: 0.6-1.0 BUN 15 mg/dL (Normal) Range: 7-18 GLU 82 mg/dL (Normal) Range: 70-110 :59 COMPLETE UA MUCUS, URINE 0 SEEN {/hpf} (Normal) BACTERIA 0 SEEN {/hpf} (Normal) SQUAM EPI SeeNote {/hpf} (Normal) Range: 5-10 Comments: Result: 0-5 SEEN RBC-UA 0 SEEN {/hpf} (Normal) Range: 0-5 WBC 0 SEEN {/hpf} (Normal) Range: 0-5 LEUK ESTERASE SeeNote (Normal) Comments: Result: NEGATIVE OCCULT BLOOD-UR SeeNote (Abnormal) Comments: Result: TRACE-INTACT NITRITE UR SeeNote (Normal) Comments: Result: NEGATIVE UROBILI 0.2 EU/dl (Normal) Range: 0.2 - 1.0 PROT DIPSTX SeeNote (Normal) Comments: Result: NEGATIVE pH UR 7.0 (Normal) Range: 5.0-8.0 SP.GR. DIPSTX 1.015 (Normal) Range: 1.002-1.030 KETONE UR SeeNote mg/dL (Normal) Comments: Result: NEGATIVE BILIRUBIN URINE SeeNote (Normal) Comments: Result: NEGATIVE GLUCOSE, UR SeeNote (Normal) Comments: Result: NEGATIVE CLARITY CLEAR (Normal) COLOR YELLOW (Normal) 1-Nza-202800:59 LIPID VLDL 39 mg/dL (Normal) Range: 5-40 LDL 155 mg/dL (Abnormal) Range: 0-130 HDL 50 mg/dL (Normal) Comments: Reference Range HDL <40 mg/dL Low HDL Cholesterol HDL >or= 60 mg/dL High HDL Cholesterol TRIG 197 mg/dL (Normal) Comments: Serum Triglycerides Reference Interval Normal <150 mg/dL Borderline high 150 - 199 mg/dL High 200 - 499 mg/dL Very High > or = 500 mg/dL CHOL 244 mg/dL (Abnormal) Comments: <200 mg/dL Desirable 200-240 mg/dL Borderline >240 mg/dL High Risk :59 TSH 3.19 {uIU/mL} (Normal) Range: 0.358-3.74 71-Uqt-063752:15 LIPID VLDL 46 mg/dL (Abnormal) Range: 5-40 LDL 156 mg/dL (Abnormal) Range: 0-130 HDL 43 mg/dL (Normal) Comments: Reference Range HDL <40 mg/dL Low HDL Cholesterol HDL >or= 60 mg/dL High HDL Cholesterol TRIG 230 mg/dL (Abnormal) Comments: Serum Triglycerides Reference Interval Normal <150 mg/dL Borderline high 150 - 199 mg/dL High 200 - 499 mg/dL Very High > or = 500 mg/dL CHOL 245 mg/dL (Abnormal) Comments: <200 mg/dL Desirable 200-240 mg/dL Borderline >240 mg/dL High Risk :15 LIVER D BILI 0.10 mg/dL (Normal) Range: 0.00-0.30 T BILI 0.40 mg/dL (Normal) Range: 0.00-1.00 ALT 18 U/L (Normal) Range: 12-78 ALK P 63 U/L (Normal) Range: 50-136 AST 7 U/L (Abnormal) Range: 15-37 ALB 3.5 g/dL (Normal) Range: 3.4-5.0 T PROT 6.9 g/dL (Normal) Range: 6.4-8.2 :17 COMP METABOLIC ALK P 58 U/L (Normal) Range: 50-136 ALT 18 U/L (Normal) Range: 12-78 AST 8 U/L (Abnormal) Range: 15-37 CA 8.9 mg/dL (Normal) Range: 8.5-10.1 CL 106 mmol/L (Normal) Range: 98-107 CO2 29.0 mmol/L (Normal) Range: 21.0-32.0 GAP 7 (Normal) Range: 5-15 K 3.9 mmol/L (Normal) Range: 3.5-5.1 NA 142 mmol/L (Normal) Range: 136-145 T BILI 0.40 mg/dL (Normal) Range: 0.00-1.00 A/G 0.9 {RATIO} (Normal) Range: 0.9-2.4 ALB 3.3 g/dL (Abnormal) Range: 3.4-5.0 BUN 14 mg/dL (Normal) Range: 7-18 BUN/CRE 23.3 {RATIO} (Abnormal) Range: 10-20 CREAT,SERUM 0.6 mg/dL (Normal) Range: 0.6-1.0 EST GFR 109 mL/min (Normal) EST GFR - AA 132 mL/min (Normal) GLOB 3.6 g/dL (Normal) Range: 2.7-4.2 GLU 87 mg/dL (Normal) Range: 70-110 T PROT 6.9 g/dL (Normal) Range: 6.4-8.2 :17 LIPID HDL 45 mg/dL (Normal) Comments: Reference Range HDL <40 mg/dL Low HDL Cholesterol HDL >or= 60 mg/dL High HDL Cholesterol LDL 156 mg/dL (Abnormal) Range: 0-130 VLDL 21 mg/dL (Normal) Range: 5-40 CHOL 222 mg/dL (Abnormal) Comments: <200 mg/dL Desirable 200-240 mg/dL Borderline >240 mg/dL High Risk TRIG 103 mg/dL (Normal) Comments: Serum Triglycerides Reference Interval Normal <150 mg/dL Borderline high 150 - 199 mg/dL High 200 - 499 mg/dL Very High > or = 500 mg/dL 44-Sjr-69173:17 TSH 3.46 {uIU/mL} (Normal) Range: 0.358-3.74 35-Irx-751105:37 CULTURE, URINE URINE CULTURE See Note {CFU/mL} Comments: COLONY COUNT 1000- 10,000 ORGANISM 1: MIXED GRAM POSITIVE ORGANISMS (Normal) 06-Wbb-351224:37 TSH 0.02 {uIU/mL} (Abnormal) Range: 0.358-3.74 13-Ale-848554:01 CULTURE, URINE URINE CULTURE See Note (Normal) Comments: Culture exhibits no growth. 69-Xhd-[id number]:40 L/S SPINE,MIN 4 VIEWS (MT) Radiology Report See Note (Normal) Comments: Exam Number: [id number] LUMBOSACRAL SPINE AP, lateral and oblique views of the lumbosacral spine were obtained. HISTORYThis is a 58-year-old female patient with history of low back pain. FIND INGSThere is a minimal degree of anterolisthesis of L3 on L4 with noevidence of spondylolysis. There is a moderate degree of disc spacenarrowing at the L4-L5 and L5-S1 levels. There is also evidence of amild degr ee of anterolisthesis of L5 on S1 with no evidence ofspondylolysis. There is evidence of facet joint osteoarthritis. IMPRESSIONFacet joint osteoarthritis with minimal listhesis of L5 on S1 and discspac e narrowing at multiple levels. No other abnormality is seen. Reported By: HI REYNOSO 13-Kms-266659:14 Urinalysis, Office (60643) UA - LEUKOCYTE ESTERASE Small (Normal) UA - NITRITE Negative (Normal) URINE UROBILINGN FILOMENA TIMED Normal mg/dL (Normal) UA - PROTEIN Negative mg/dL (Normal) UA - PH 7.0 (Normal) UA - BLOOD Non Hemolyzed Trace (Normal) UA - SPECIFIC GRAVITY 1.010 (Normal) UA - KETONES Negative mg/dL (Normal) UA - BILIRUBIN Negative (Normal) UA - GLUCOSE Negative (Normal) :55 COMP METABOLIC CL 100 mmol/L (Normal) Range: 98-107 CO2 28.0 mmol/L (Normal) Range: 21.0-32.0 GAP 12 (Normal) Range: 5-15 K 4.0 mmol/L (Normal) Range: 3.5-5.1 NA 140 mmol/L (Normal) Range: 136-145 T BILI 0.50 mg/dL (Normal) Range: 0.00-1.00 A/G 1.0 {RATIO} (Normal) Range: 0.9-2.4 ALB 3.4 g/dL (Normal) Range: 3.4-5.0 ALK P 62 U/L (Normal) Range: 50-136 ALT 21 U/L (Normal) Range: 12-78 AST < 3 U/L (Abnormal) Range: 15-37 CA 9.1 mg/dL (Normal) Range: 8.5-10.1 GLOB 3.3 g/dL (Normal) Range: 2.7-4.2 T PROT 6.7 g/dL (Normal) Range: 6.4-8.2 BUN 16 mg/dL (Normal) Range: 7-18 BUN/CRE 22.9 {RATIO} (Abnormal) Range: 10-20 CREAT,SERUM 0.7 mg/dL (Normal) Range: 0.6-1.0 EST GFR 91 mL/min (Normal) EST GFR - AA 110 mL/min (Normal) GLU 93 mg/dL (Normal) Range: 70-110 :55 D BILI 0.11 mg/dL (Normal) Range: 0.00-0.30 :55 LIPID HDL 41 mg/dL (Normal) Comments: Reference RangeHDL <40 mg/dL Low HDL CholesterolHDL >or= 60 mg/dL High HDL Cholesterol LDL 124 mg/dL (Normal) Range: 0-130 VLDL 37 mg/dL (Normal) Range: 5-40 CHOL 202 mg/dL (Abnormal) Comments: <200 mg/dL Dbuqwgwsl639-196 mg/dL Borderline>240 mg/dL High Risk TRIG 183 mg/dL (Normal) Comments: Serum Triglycerides Reference IntervalNormal <150 mg/dLBorderline high 150 - 199 mg/dLHigh 200 - 499 mg/ dLVery High > or = 500 mg/dL :55 TSH 0.03 {uIU/mL} (Abnormal) Range: 0.358-3.74 65-Xym-875082:14 CBCD,SMEAR DIFF BAND 3 % (Normal) Range: 0-5 LYMPH 22 % (Normal) Range: 19-41 MONOCYTE 7 % (Normal) Range: 0-10 PLT EST SeeNote (Normal) Comments: Result: ADEQUATE RED CELL MORPH SeeNote {NORMAL} (Normal) Comments: Result: NORM C+C SEGS 68 % (Normal) Range: 47-70 CELLS COUNTED 100 (Normal) MCHC 34.0 g/dL (Normal) Range: 32-36 PLT 200 K/mm3 (Normal) Range: 150-450 RDW 13.5 % (Normal) Range: 11.6-14.6 HCT 38.3 % (Normal) Range: 37-47 HGB 13.0 g/dL (Normal) Range: 12.0-16.0 MCH 32.9 pg (Abnormal) Range: 27.0-32.0 MCV 96.9 fL (Normal) Range: 81-99 RBC 3.96 {M/mm3} (Abnormal) Range: 4.2-5.4 WBC 4.0 K/mm3 (Abnormal) Range: 4.4-11.0 [id number] COMP METABOLIC ALK P 58 U/L (Normal) Range: 50-136 ALT 18 U/L (Normal) Range: 12-78 AST 13 U/L (Abnormal) Range: 15-37 CL 102 mmol/L (Normal) Range: 98-107 CO2 26.0 mmol/L (Normal) Range: 21.0-32.0 GAP 11 (Normal) Range: 5-15 K 4.0 mmol/L (Normal) Range: 3.5-5.1 NA 139 mmol/L (Normal) Range: 136-145 T BILI 0.40 mg/dL (Normal) Range: 0.00-1.00 A/G 1.0 {RATIO} (Normal) Range: 0.9-2.4 ALB 3.4 g/dL (Normal) Range: 3.4-5.0 BUN 15 mg/dL (Normal) Range: 7-18 BUN/CRE 21.4 {RATIO} (Abnormal) Range: 10-20 CA 8.9 mg/dL (Normal) Range: 8.5-10.1 CREAT,SERUM 0.7 mg/dL (Normal) Range: 0.6-1.0 EST GFR 91 mL/min (Normal) EST GFR - AA 110 mL/min (Normal) GLOB 3.3 g/dL (Normal) Range: 2.7-4.2 T PROT 6.7 g/dL (Normal) Range: 6.4-8.2 GLU 88 mg/dL (Normal) Range: 70-110 :14 [facility] 6676 281 {IU/mL} (Abnormal) Range: 0-34 Comments: Performed At: [address] [id number] :[id number] T4 FREE DIRECT 0.7 ng/dL (Abnormal) Range: 0.76-1.146 :14 T4 THYROXIN 5.6 ug/dL (Normal) Range: 4.8-13.9 :14 TSH 5.57 {uIU/mL} (Abnormal) Range: 0.358-3.74 :03 CATIA 52 U/L (Normal) Range: 25-115 :03 CBCD,SMEAR DIFF BAND 2 % (Normal) Range: 0-5 CELLS COUNTED 100 (Normal) EOS 1 % (Normal) Range: 0-5 HCT 41.3 % (Normal) Range: 37-47 HGB 14.3 g/dL (Normal) Range: 12.0-16.0 LYMPH 26 % (Normal) Range: 19-41 MCH 33.0 pg (Abnormal) Range: 27.0-32.0 MCHC 34.7 g/dL (Normal) Range: 32-36 MCV 95.0 fL (Normal) Range: 81-99 MONOCYTE 1 % (Normal) Range: 0-10 PLT 246 K/mm3 (Normal) Range: 150-450 PLT EST SeeNote (Normal) Comments: Result: ADEQUATE RBC 4.35 {M/mm3} (Normal) Range: 4.2-5.4 RDW 13.8 % (Normal) Range: 11.6-14.6 RED CELL MORPH SeeNote {NORMAL} (Normal) Comments: Result: NORM C+C SEGS 70 % (Normal) Range: 47-70 WBC 6.2 K/mm3 (Normal) Range: 4.4-11.0 :03 COMP METABOLIC CO2 31.8 mmol/L (Normal) Range: 21.0-32.0 GAP 4 (Abnormal) Range: 5-15 A/G 1.3 {RATIO} (Normal) Range: 0.9-2.4 ALB 4.0 g/dL (Normal) Range: 3.4-5.0 ALK P 82 U/L (Normal) Range: 50-136 ALT 32 U/L (Normal) Range: 30-65 AST 11 U/L (Abnormal) Range: 15-37 BUN 12 mg/dL (Normal) Range: 7-18 BUN/CRE 17.1 {RATIO} (Normal) Range: 10-20 CA 9.5 mg/dL (Normal) Range: 8.5-10.1 CL 103 mmol/L (Normal) Range: 98-107 CREAT,SERUM 0.7 mg/dL (Normal) Range: 0.6-1.0 GLOB 3.0 g/dL (Normal) Range: 2.7-4.2 GLU 85 mg/dL (Normal) Range: 70-110 Comments: RESULTS CALLED TO 09/22/071701 [facility] AMENDED REPORT 09/22/071701 GLU previously reported as: 85 mg/dL K 4.2 mmol/L (Normal) Range: 3.5-5.1 NA 139 mmol/L (Normal) Range: 136-145 T BILI 0.38 mg/dL (Normal) Range: 0.00-1.00 T PROT 7.0 g/dL (Normal) Range: 6.4-8.2 :03 LIPASE 188 U/L (Normal) Range: 114-286 :03 ROUTINE UA BILIRUBIN URINE SeeNote (Normal) Comments: Result: NEGATIVE CLARITY SeeNote (Normal) Comments: Result: SL CLOUDY COLOR YELLOW (Normal) GLUCOSE, UR SeeNote (Normal) Comments: Result: NEGATIVE KETONE UR SeeNote mg/dL (Normal) Comments: Result: NEGATIVE LEUK ESTERASE SeeNote (Normal) Comments: Result: NEGATIVE NITRITE UR SeeNote (Normal) Comments: Result: NEGATIVE OCCULT BLOOD-UR 1+ (Abnormal) pH UR 5.5 (Normal) Range: 5.0-8.0 PROT DIPSTX SeeNote (Normal) Comments: Result: NEGATIVE SP.GR. DIPSTX 1.025 (Normal) Range: 1.002-1.030 UROBILI 0.2 EU/dl (Normal) Range: 0.2 - 1.0 3-Vim-937110:03 TSH 6.01 {uIU/mL} (Abnormal) Range: 0.34-4.82 :30 HIP, MIN 2 VIEWS (PORTABLE) Radiology Report See Note (Normal) Comments: Exam Number: [id number] FIVE VIEW LUMBAR SPINE AP, lateral, both obliques and a coned down L5-S1. Being done forpain in the low back radiating to the right hip and leg. Pedicles are intact. What is s een of the SI joints is unremarkable. There is mild spur formation at several levels. No fracture is noted.There is mild disk space narrowing at L4-5. If the patient persistsat being symptomatic, MR s can is suggested to evaluate possible nerveroot irritation. IMPRESSIONMild disk disease L4-5. If the patient persists at being symptomatic,MR scan is suggested to evaluate possible nerve root irritatio n. TWO VIEWS OF THE RIGHT HIP AP and lateral. Being done for pain. There is mild eburnation of superior articulating aspects of the hip. No fracture is noted. Bony trabecular pattern and soft tissues a reunremarkable. IMPRESSIONMild degenerative changes. Reported By: CATHIE SALCEDO M.D. :30 L/S SPINE,MIN 4 VIEWS Radiology Report See Note (Normal) Comments: Exam Number: [id number] FIVE VIEW LUMBAR SPINE AP, lateral, both obliques and a coned down L5-S1. Being done forpain in the low back radiating to the right hip and leg. Pedicles are intact. What is s een of the SI joints is unremarkable. There is mild spur formation at several levels. No fracture is noted.There is mild disk space narrowing at L4-5. If the patient persistsat being symptomatic, MR s can is suggested to evaluate possible nerveroot irritation. IMPRESSIONMild disk disease L4-5. If the patient persists at being symptomatic,MR scan is suggested to evaluate possible nerve root irritatio n. TWO VIEWS OF THE RIGHT HIP AP and lateral. Being done for pain. There is mild eburnation of superior articulating aspects of the hip. No fracture is noted. Bony trabecular pattern and soft tissues a reunremarkable. IMPRESSIONMild degenerative changes. Reported By: CATHIE SALCEDO M.D. :24 CBCD,SMEAR DIFF BASOPHIL 1 % (Normal) Range: 0-1 CELLS COUNTED 100 (Normal) EOS 2 % (Normal) Range: 0-5 HCT 38.5 % (Normal) Range: 37-47 HGB 13.5 g/dL (Normal) Range: 12.0-16.0 LYMPH 25 % (Normal) Range: 19-41 MCH 32.4 pg (Abnormal) Range: 27.0-32.0 MCHC 34.9 g/dL (Normal) Range: 32-36 MCV 92.7 fL (Normal) Range: 81-99 MONOCYTE 5 % (Normal) Range: 0-10 PLT 226 K/mm3 (Normal) Range: 150-450 PLT EST SeeNote (Normal) Comments: Result: ADEQUATE RBC 4.16 {M/mm3} (Abnormal) Range: 4.2-5.4 RDW 13.5 % (Normal) Range: 11.6-14.6 RED CELL MORPH SeeNote {NORMAL} (Normal) Comments: Result: NORM C+C SEGS 67 % (Normal) Range: 47-70 WBC 4.2 K/mm3 (Abnormal) Range: 4.4-11.0 95-Liz-578730:24 COMP METABOLIC A/G 1.3 {RATIO} (Normal) Range: 0.9-2.4 ALB 4.0 g/dL (Normal) Range: 3.4-5.0 ALK P 69 U/L (Normal) Range: 50-136 ALT 31 [iU]/L (Normal) Range: 30-65 AST 14 U/L (Abnormal) Range: 15-37 BUN 18 mg/dL (Normal) Range: 7-18 BUN/CRE 22.5 {RATIO} (Abnormal) Range: 10-20 CA 9.4 mg/dL (Normal) Range: 8.5-10.1 CL 102 mmol/L (Normal) Range: 98-107 CO2 30.2 mmol/L (Normal) Range: 21.0-32.0 Comments: Please Note Reference Interval Change CREAT,SERUM 0.8 mg/dL (Normal) Range: 0.6-1.0 GAP 6 (Normal) Range: 5-15 GLOB 3.2 g/dL (Normal) Range: 2.7-4.2 Comments: Please Note Reference Interval Change GLU 82 mg/dL (Normal) Range: 70-110 K 3.9 mmol/L (Normal) Range: 3.5-5.1 NA 138 mmol/L (Normal) Range: 136-145 T BILI 0.59 mg/dL (Normal) Range: 0.00-1.00 T PROT 7.2 g/dL (Normal) Range: 6.4-8.2 :24 D BILI 0.09 mg/dL (Normal) Range: 0.00-0.30 :24 LIPID CHOL 227 mg/dL (Abnormal) Comments: <200 mg/dL Desirable 200-240 mg/dL Borderline >240 mg/dL High Risk HDL 36 mg/dL (Normal) Comments: Reference Range HDL <40 mg/dL Low HDL Cholesterol HDL >or= 60 mg/dL High HDL Cholesterol LDL 172 mg/dL (Abnormal) Range: 0-130 TRIG 96 mg/dL (Normal) Comments: Serum Triglycerides Reference Interval Normal <150 mg/dL Borderline high 150 - 199 mg/dL High 200 - 499 mg/dL Very High > or = 500 mg/dL VLDL 19 mg/dL (Normal) Range: 5-40 :24 ROUTINE UA BILIRUBIN URINE SeeNote (Normal) Comments: Result: NEGATIVE CLARITY SeeNote (Normal) Comments: Result: SL CLOUDY COLOR YELLOW (Normal) GLUCOSE, UR SeeNote (Normal) Comments: Result: NEGATIVE KETONE UR SeeNote mg/dL (Normal) Comments: Result: NEGATIVE LEUK ESTERASE 1+ (Abnormal) NITRITE UR SeeNote (Normal) Comments: Result: NEGATIVE OCCULT BLOOD-UR 2+ (Abnormal) pH UR 6.0 (Normal) Range: 5.0-8.0 PROT DIPSTX SeeNote (Normal) Comments: Result: NEGATIVE SP.GR. DIPSTX 1.020 (Normal) Range: 1.002-1.030 UROBILI 0.2 EU/dl (Normal) Range: 0.2 - 1.0 :24 TSH 4.71 {uIU/mL} (Normal) Range: 0.34-4.82 :16 Urinalysis, Office (25370) UA - BLOOD Non Hemolyzed Trace (Normal) UA - GLUCOSE Negative (Normal) UA - LEUKOCYTE ESTERASE Trace (Normal) UA - NITRITE Negative (Normal) UA - PH 5.0 (Normal) UA - PROTEIN Negative mg/dL (Normal) UA - SPECIFIC GRAVITY 1.005 (Normal) URINE UROBILINGN FILOMENA TIMED Normal mg/dL (Normal) 08-Ksx-680845:15 COMPLETE UA BACTERIA RARE {/hpf} (Normal) BILIRUBIN URINE SeeNote (Normal) Comments: Result: NEGATIVE CLARITY CLEAR (Normal) COLOR YELLOW (Normal) GLUCOSE, UR SeeNote (Normal) Comments: Result: NEGATIVE KETONE UR SeeNote mg/dL (Normal) Comments: Result: NEGATIVE LEUK ESTERASE SeeNote (Normal) Comments: Result: NEGATIVE MUCUS, URINE 0 SEEN {/hpf} (Normal) NITRITE UR SeeNote (Normal) Comments: Result: NEGATIVE OCCULT BLOOD-UR SeeNote (Abnormal) Comments: Result: TRACE-INTACT pH UR 5.5 (Normal) Range: 5.0-8.0 PROT DIPSTX SeeNote (Normal) Comments: Result: NEGATIVE RBC-UA 0 SEEN {/hpf} (Normal) Range: 0-5 SP.GR. DIPSTX 1.010 (Normal) Range: 1.002-1.030 SQUAM EPI SeeNote {/hpf} (Normal) Range: 5-10 Comments: Result: 0-5 SEEN UROBILI 0.2 EU/dl (Normal) Range: 0.2 - 1.0 WBC SeeNote {/hpf} (Normal) Range: 0-5 Comments: Result: 0-5 SEEN 14-Fqt-458205:15 CULTURE, URINE URINE CULTURE See Note {CFU/mL} (Normal) Comments: COLONY COUNT 1000-10,000 ORGANISM 1: MIXED GRAM POS & NEG ORGANISMS :35 BMP Comments: COMMENTS: PAT,OR 06/04/06Precautions*: NOT APPLICABLE BUN 18 mg/dL (Normal) Range: 7-18 BUN/CRE 20.0 {RATIO} (Normal) Range: 10-20 CA 8.9 mg/dL (Normal) Range: 8.5-10.1 CL 103 mmol/L (Normal) Range: 98-107 CO2 30.7 mmol/L (Abnormal) Range: 22.0-29.0 CREAT,SERUM 0.9 mg/dL (Normal) Range: 0.6-1.0 GAP 4 (Abnormal) Range: 5-15 GLU 87 mg/dL (Normal) Range: 70-110 K 4.0 mmol/L (Normal) Range: 3.5-5.1 NA 138 mmol/L (Normal) Range: 136-145 54-Ael-381471:35 CBC Comments: COMMENTS: PAT,OR 06/04/06Precautions*: NOT APPLICABLE HCT 36.9 % (Abnormal) Range: 37-47 HGB 12.9 g/dL (Normal) Range: 12.0-16.0 MCH 33.4 pg (Abnormal) Range: 27.0-32.0 MCHC 34.8 g/dL (Normal) Range: 32-36 MCV 95.8 fL (Normal) Range: 81-99 PLT 250 K/mm3 (Normal) Range: 150-450 RBC 3.85 {M/mm3} (Abnormal) Range: 4.2-5.4 RDW 13.9 % (Normal) Range: 11.6-14.6 WBC 5.3 K/mm3 (Normal) Range: 4.4-11.0 51-Szl-518067:18 Urinalysis, Office ([id number]) UA - BILIRUBIN Negative (Normal) UA - BLOOD Non Hemolyzed Trace (Normal) UA - GLUCOSE Negative (Normal) UA - KETONES Negative mg/dL (Normal) UA - LEUKOCYTE ESTERASE Negative (Normal) UA - NITRITE Negative (Normal) UA - PH 5.0 (Normal) UA - PROTEIN Negative mg/dL (Normal) UA - SPECIFIC GRAVITY 1.025 (Normal) URINE UROBILINGN FILOMENA TIMED Normal mg/dL (Normal) 05-Jwp-047134:02 Urinalysis, Office (01152) UA - BILIRUBIN Negative (Normal) UA - BLOOD Non Hemolyzed Trace (Normal) UA - GLUCOSE Negative (Normal) UA - KETONES Negative mg/dL (Normal) UA - LEUKOCYTE ESTERASE Negative (Normal) UA - NITRITE Negative (Normal) UA - PH 5.0 (Normal) UA - PROTEIN Negative mg/dL (Normal) UA - SPECIFIC GRAVITY 1.010 (Normal) URINE UROBILINGN FILOMENA TIMED 2 mg/dL (Normal) 89-Vop-663174:46 Urinalysis, Office (42904) UA - BILIRUBIN Negative (Normal) UA - BLOOD Hemolyzed Large (Normal) UA - KETONES Negative mg/dL (Normal) UA - LEUKOCYTE ESTERASE Negative (Normal) UA - NITRITE Negative (Normal) UA - PH 5.0 (Normal) UA - PROTEIN Negative mg/dL (Normal) UA - SPECIFIC GRAVITY 1.015 (Normal) URINE UROBILINGN FILOMENA TIMED Normal mg/dL (Normal) 46-Xth-70455:00 CULTURE, URINE Comments: The date and/or time of collection was not indicated on therequisition as required by state and federal law. The dateof receipt of the specimen was used as the collection dateif not supplied. URINE CULTURE See Note {CFU/mL} Comments: COLONY COUNT 1000- 10,000 ORGANISM 1: KLEBSIELLA PNEUMONIAE KLEBSIELLA PNEUMONIAE: REACTION AMOXICILLIN/CLAVULANIC ACID $$ <=8 S A MPICILLIN (Normal) GN $ >=32 R CARBENICILLIN $$$ >=512 R CEFAZOLIN $ <=8 S CEFOXITIN $$ <=2 S CEFTRIAXONE $$$ <=8 S CEFUROXIME $$ <=4 S CIPROFLOXACIN GN $$$ <=0.5 S GENTAMICIN GN $ <=0.5 S LEVOFLOXACIN $$ <=1 S NALIDIXIC ACID $$$ <=16 S NITROFURANTOIN $ 64 I OFLOXACIN $$$ <=1 S TETRACYCLINE $$ 4 S TICARCILLIN GN NOT PSEUDO $$$ >=256 R TRIMETHOPRIM/SULFAMETHOXAZ $$ <=10 S 6-Eji-895544:05 CBCD,SMEAR DIFF BAND 1 % (Normal) Range: 0-5 CELLS COUNTED 100 (Normal) EOS 2 % (Normal) Range: 0-5 HCT 37.1 % (Normal) Range: 37-47 HGB 13.0 g/dL (Normal) Range: 12.0-16.0 LYMPH 30 % (Normal) Range: 19-41 MCH 33.6 pg (Abnormal) Range: 27.0-32.0 MCHC 35.0 g/dL (Normal) Range: 32-36 MCV 95.9 fL (Normal) Range: 81-99 MONOCYTE 4 % (Normal) Range: 0-10 PLT 229 K/mm3 (Normal) Range: 150-450 PLT EST SeeNote (Normal) Comments: Result: ADEQUATE RBC 3.87 {M/mm3} (Abnormal) Range: 4.2-5.4 RDW 13.1 % (Normal) Range: 11.6-14.6 RED CELL MORPH SeeNote {NORMAL} (Normal) Comments: Result: NORM C&C SEGS 63 % (Normal) Range: 47-70 WBC 4.5 K/mm3 (Normal) Range: 4.4-11.0 :05 LIVER ALB 3.5 g/dL (Normal) Range: 3.4-5.0 ALK P 61 U/L (Normal) Range: 50-136 ALT 42 [iU]/L (Normal) Range: 30-65 AST 18 U/L (Normal) Range: 15-37 D BILI 0.10 mg/dL (Normal) Range: 0.00-0.30 T BILI 0.49 mg/dL (Normal) Range: 0.00-1.00 T PROT 6.5 g/dL (Normal) Range: 6.4-8.2 :05 PFLIP CHOL 190 mg/dL (Normal) Comments: <200 mg/dL Desirable 200-240 mg/dL Borderline >240 mg/dL High Risk HDL 48 mg/dL (Normal) Comments: Reference Range HDL <40 mg/dL Low HDL Cholesterol HDL >or= 60 mg/dL High HDL Cholesterol LDL 133 mg/dL (Abnormal) Range: 0-130 TRIG 45 mg/dL (Normal) Comments: Serum Triglycerides Reference Interval Normal <150 mg/dL Borderline high 150 - 199 mg/dL High 200 - 499 mg/dL Very High > or = 500 mg/dL VLDL 9 mg/dL (Normal) Range: 5-40 :05 ROUTINE UA BILIRUBIN URINE SeeNote (Normal) Comments: Result: NEGATIVE CLARITY CLEAR (Normal) COLOR YELLOW (Normal) GLUCOSE, UR SeeNote (Normal) Comments: Result: NEGATIVE KETONE UR SeeNote mg/dL (Normal) Comments: Result: NEGATIVE LEUK ESTERASE SeeNote (Normal) Comments: Result: NEGATIVE NITRITE UR SeeNote (Normal) Comments: Result: NEGATIVE OCCULT BLOOD-UR 2+ (Abnormal) pH UR 5.5 (Normal) Range: 5.0-8.0 PROT DIPSTX SeeNote (Normal) Comments: Result: NEGATIVE SP.GR. DIPSTX >=1.030 (Normal) Range: 1.002-1.030 UROBILI 0.2 EU/dl (Normal) Range: 0.2 - 1.0 6-Ovh-821880:05 TSH 3.47 {uIU/mL} (Normal) Range: 0.34-4.82 Plan of Care Name Dates Details Instructions Fatty liver : Diet, Exercise, and Wt loss Indication: Fatty liver Chest pain, atypical : Reviewed Diagnostic Tests Indication: Chest pain, atypical Non-smoker : Eprescribed prescriptions (G8553) Indication: Non-smoker Epigastric pain : Continue Current Prescription(s) Indication: Epigastric pain Need for prophylactic vaccination and inoculation against influenza (Renamed from Need for immunization against influenza) : Eprescribed prescriptions (G8553) Indication: Need for prophylactic vaccination and inoculation against influenza (Renamed from Need for immunization against influenza) Sinusitis, bacterial : Follow up if no improvement or if symptoms worsen Indication: Sinusitis, bacterial Sinusitis, bacterial : Sinusitis *: sinus infection Indication: Sinusitis, bacterial Cough : Cough: cough Indication: Cough BMI 33.0-33.9,adult : Eprescribed prescriptions (G8553) Indication: BMI 33.0-33.9,adult Mixed hyperlipidemia : Reviewed Lab Indication: Mixed hyperlipidemia Hypertension, benign : Reviewed Lab Indication: Hypertension, benign BMI 33.0-33.9,adult : Eprescribed prescriptions (G8553) Indication: BMI 33.0-33.9,adult Mixed hyperlipidemia : Cholesterol mgmt Indication: Mixed hyperlipidemia Hypertension, benign : HTN/CAD Red Flags Indication: Hypertension, benign Non-smoker : Follow up if no improvement or if symptoms worsen Indication: Non-smoker Non-smoker : Eprescribed prescriptions (G8553) Indication: Non-smoker Hypertension, benign : Continue Current Prescription(s) Indication: Hypertension, benign Mixed hyperlipidemia : Eprescribed prescriptions (G8553) Indication: Mixed hyperlipidemia Dizzy : Eprescribed prescriptions (G8553) Indication: Dizzy Sebaceous cyst : I/D Cyst/Abscess Indication: Sebaceous cyst Non-smoker : Eprescribed prescriptions (G8553) Indication: Non-smoker Acquired hypothyroidism : Eprescribed prescriptions (G8553) Indication: Acquired hypothyroidism Hypertension : Follow up if no improvement or if symptoms worsen Indication: Hypertension Sinusitis, acute : Follow up if no improvement or if symptoms worsen Indication: Sinusitis, acute Sinusitis, acute : *URI Treatment Indication: Sinusitis, acute Sinusitis, acute : *URI Symptoms Indication: Sinusitis, acute Sinusitis, acute : *Antibiotic Usage Education - Female Indication: Sinusitis, acute Obesity : Eprescribed prescriptions (G8553) Indication: Obesity Acquired hypothyroidism : Eprescribed prescriptions (G8553) Indication: Acquired hypothyroidism Allergic Rhinitis : Follow up if no improvement or if symptoms worsen Indication: Allergic Rhinitis Sinusitis, acute : *URI Treatment Indication: Sinusitis, acute Sinusitis, acute : *URI Symptoms Indication: Sinusitis, acute Sinusitis, acute : *Antibiotic Usage Education - Female Indication: Sinusitis, acute Laryngitis : Follow up if no improvement or if symptoms worsen Indication: Laryngitis Laryngitis : Laryngitis Education Indication: Laryngitis Hypertension : Eprescribed prescriptions (G8553) Indication: Hypertension Hypertension : Dietary Approaches to Stop Hypertension (The DASH Diet): blood pressure Indication: Hypertension Mixed hyperlipidemia : Diet, Exercise, and Wt loss Indication: Mixed hyperlipidemia Mixed hyperlipidemia : High Cholesterol (Hypercholesterolemia) *: cholesterol Indication: Mixed hyperlipidemia Gastroesophageal reflux disease without esophagitis : Heartburn *: reflux Indication: Gastroesophageal reflux disease without esophagitis Sinus infection : Sinusitis *: sinus infection Indication: Sinus infection Need for prophylactic vaccination and inoculation against influenza : Flu Shots (Influenza Vaccine): flu shot Indication: Need for prophylactic vaccination and inoculation against influenza Low back pain : *Antibiotic Usage Education - Female Indication: Low back pain Hypertension : Diet, Exercise, and Wt loss Indication: Hypertension Mixed hyperlipidemia : Diet, Exercise, and Wt loss Indication: Mixed hyperlipidemia Mixed hyperlipidemia : *Cholesterol - Medication Side Effects Indication: Mixed hyperlipidemia Mixed hyperlipidemia : Diet, Exercise, and Wt loss Indication: Mixed hyperlipidemia Mixed hyperlipidemia : Diet and Exercise Indication: Mixed hyperlipidemia Mixed hyperlipidemia : Cholesterol - Medication Side Effects Indication: Mixed hyperlipidemia Hematuria : FOLLOW UP IN 4 MONTHS Indication: Hematuria Allergic Rhinitis : FOLLOW UP IN 4 MONTHS Indication: Allergic Rhinitis Hypertension : CAFFEINE AVOIDANCE Indication: Hypertension Hypertension : BP MONITORING - SELF Indication: Hypertension Hypertension : FOLLOW UP IN 2 WEEKS Indication: Hypertension Hypertension : Continue Current Prescription(s) Indication: Hypertension Planned Observations Troponin I (83975)Indication: Chest pain, atypical On: 13-Cbb-243165:06 Request CPK MB FRACTION (68978)Indication: Chest pain, atypical On: 69-Ipg-968816:06 Request CREATINE KINASE TOTAL (36803)Indication: Chest pain, atypical On: 29-Sln-151805:06 Request METABOLIC PANEL, COMPREHENSIVE (55726)Indication: Chest pain, atypical On: 00-Vnj-507235:05 Request CBC W/AUTO DIFF WBC (56064)Indication: Chest pain, atypical On: 25-Nvs-727968:05 Request TSH (00609)Indication: Abnormal TSH On: 41-Jrn-246533:44 Request T4, FREE (THYROXINE) (43681)Indication: Abnormal TSH On: :44 Request T3, FREE (TRIDOTHYRONINE) (33730)Indication: Abnormal TSH On: 42-Api-344432:44 Request TSH (THYROID STIMULATING HORMONE) (34008)Indication: Acquired hypothyroidism On: 51-Rox-210257:45 Request OCCULT BLOOD FECES SCREEN (22035)Indication: Diarrhea, unspecified type On: 0-Hvw-080579:04 Request Lipid Panel (75926)Indication: Mixed hyperlipidemia On: 70-Llx-213721:47 Request Comments: september 2016 HEPATIC FUNCTION PANEL (61745)Indication: Mixed hyperlipidemia On: 14-Maj-955498:12 Request TSH (97419)Indication: Acquired hypothyroidism On: 77-Upm-147362:08 Request TSH (THYROID STIMULATING HORMONE) (22685)Indication: Acquired hypothyroidism On: 14-Ege-282895:25 Request Vitamin D Hydroxy (76610)Indication: VITAMIN D DEFICIENCY (Renamed from Avitaminosis D) On: 48-Obq-359811:23 Request METABOLIC PANEL, COMPREHENSIVE (97886)Indication: Hypertension On: 52-Ndv-319395:23 Request LIPID PANEL (73431)Indication: Mixed hyperlipidemia On: 98-Sbl-950893:23 Request Metabolic Panel, Comprehensive (05808)Indication: Hypertension On: 54-Kpf-076652: Request Lipid Panel (74533)Indication: Mixed hyperlipidemia On: 43-Pio-820676:01 Request TSH (06896)Indication: Acquired hypothyroidism On: : Request CALCIFEDIOL (10097)Indication: Acquired hypothyroidism On: 56-Tad-959999: Request METABOLIC PANEL, COMPREHENSIVE (75489)Indication: Hypertension On: 56-Ecf-227024:32 Request TSH (01620)Indication: Acquired hypothyroidism On: 22-Ciw-407907:31 Request LIPID PANEL (79909)Indication: Mixed hyperlipidemia On: 28-Xpt-987547:31 Request HEPATIC FUNCTION PANEL (87373)Indication: Mixed hyperlipidemia On: 62-Akl-852469:09 Request LIPID PANEL (92722)Indication: Mixed hyperlipidemia On: 36-Cgf-013575:09 Request URINE ANN CULTURE-FILOMENA COL COUNT (37494)Indication: Low back pain On: 69-Jjy-935945:33 Request CBC WITH MANUAL DIFF (89536)Indication: Hypertension On: 05-Wzv-657267:06 Request METABOLIC PANEL, COMPREHENSIVE (11778)Indication: Hypertension On: 13-Wgx-251576:06 Request TSH (05953)Indication: Acquired hypothyroidism On: 75-Bhz-170729:06 Request LIPID PANEL (39870)Indication: Mixed hyperlipidemia On: :06 Request URINALYSIS, W/ MICRO (78173)Indication: Hypertension On: 37-Fan-011368:12 Request TSH (10955)Indication: Acquired hypothyroidism On: :12 Request METABOLIC PANEL, COMPREHENSIVE (31509)Indication: Hypertension On: 20-Fje-037546:12 Request LIPID PANEL (18569)Indication: Mixed hyperlipidemia On: 12-Xrf-561008:12 Request HEPATIC FUNCTION PANEL (65977)Indication: Mixed hyperlipidemia On: 0-Yht-266913:03 Request LIPID PANEL (92518)Indication: Mixed hyperlipidemia On: 0-Aic-422903:03 Request LIPID PANEL (22889)Indication: Mixed hyperlipidemia On: 6-Sqm-266787:50 Request TSH (72297)Indication: Acquired hypothyroidism On: 7-Oef-796947:49 Request METABOLIC PANEL, COMPREHENSIVE (09438)Indication: Hypertension, benign On: 8-Dhq-952706:49 Request URINE ANN CULTURE (FILOMENA COL COUNT) (08669)Indication: Pain in unspecified hip On: 50-Ufm-061558:16 Request TSH (74036)Indication: Acquired hypothyroidism On: 70-Gnx-126368:51 Request METABOLIC PANEL, COMPREHENSIVE (39328)Indication: Hypertension, benign On: 5-Xwq-800020:58 Request HEPATIC FUNCTION PANEL (84747)Indication: Mixed hyperlipidemia On: 6-Brh-969972:58 Request LIPID PANEL (80937)Indication: Mixed hyperlipidemia On: 3-Inb-692431:58 Request TSH (74172)Indication: Acquired hypothyroidism On: :54 Request HEPATIC FUNCTION PANEL (86381)Indication: Mixed hyperlipidemia On: :40 Request LIPID PANEL (00519)Indication: Mixed hyperlipidemia On: :40 Request Anti-TPO Antibody (11073)Indication: Abnormal TSH On: :31 Request T4, TOTAL (67325)Indication: Abnormal TSH On: :30 Request T4, FREE (99113)Indication: Abnormal TSH On: :30 Request TSH (55753)Indication: Abnormal TSH On: :30 Request CBC WITH MANUAL DIFF (80983)Indication: Hypertension, benign On: :29 Request METABOLIC PANEL, COMPREHENSIVE (17717)Indication: Hypertension, benign On: :28 Request Lipase (26332)Indication: Nausea On: :02 Request Amylase (15090)Indication: Nausea On: :02 Request URINALYSIS W/O MICRO (88459)Indication: Dizziness and giddiness On: 5-Iyl-494117:58 Request TSH (24324)Indication: Dizziness and giddiness On: 9-Cvf-985887:58 Request METABOLIC PANEL, COMPREHENSIVE (57715)Indication: Dizziness and giddiness On: :57 Request CBC WITH MANUAL DIFF (63313)Indication: Dizziness and giddiness On: :57 Request HEPATIC FUNCTION PANEL (03914)Indication: Mixed hyperlipidemia On: :59 Request LIPID PANEL (50882)Indication: Mixed hyperlipidemia On: 6-Dsd-328147:59 Request URINALYSIS W/O MICRO (05638)Indication: Hypertension, benign On: 8-Qeq-401073:05 Request TSH ([id number])Indication: Hypertension, benign On: 0-Kvh-797721:05 Request CBC WITH MANUAL DIFF (83050)Indication: Hypertension, benign On: 3-Bea-849136:05 Request METABOLIC PANEL, COMPREHENSIVE (79815)Indication: Hypertension, benign On: 1-Lbr-682880:05 Request LIPID PANEL (79554)Indication: Mixed hyperlipidemia On: 5-Uao-497423:04 Request HEPATIC FUNCTION PANEL ([id number])Indication: Mixed hyperlipidemia On: 1-Iog-554229:04 Request URINE ANN CULTURE-IDENTIFICATN (41569)Indication: Hematuria On: 55-Guv-207746:57 Request URINALYSIS (71121)Indication: Hematuria On: 95-Knb-605414:57 Request URINE ANN CULTURE-IDENTIFICATN (96397)Indication: Hematuria On: 76-Pvh-018275:56 Request Comments: if neg- ct of abdomen and pelvis URINALYSIS (49225)Indication: Hypertension On: :04 Request TSH (53090)Indication: Hypertension On: :03 Request CBC WITH MANUAL DIFF (00106)Indication: Hypertension On: :03 Request METABOLIC PANEL, COMPREHENSIVE (01441)Indication: Hypertension On: :03 Request LIPID PANEL (03285)Indication: Mixed hyperlipidemia On: :03 Request Planned Procedures HIDA SCAN WITH ADMINISTRATION OF On: 06-Apr-2018 Intent CHOLECYSTOKININ (CCK) AND DETERMINATION OF GALLBLADDER EJECTION FRACTION (51147)By: Lilliana Mishra DO, DO, Kathleen Nuclear Stress Test/Stress On: 26-Mar-2018 Intent SPECT/AdenosineBy: Tad RIOS, Comments: h/o achilles tendonits and cant run on treadmill Lilliana Rivas DO Echo CompleteBy: Lilliana Mishra DO On: 26-Mar-2018 Intent Lilliana Mishra DO ULTRASOUND LIVER/GB (52433)By: On: 26-Mar-2018 Intent Lilliana Mishra DO, DO, Kathleen ELECTROCARDIOGRAM, COMPLETE (ECG) On: 26-Mar-2018 Intent (54630)By: Lilliana Mishra DO Comments: nsr no acute chg -- compared to 2012 and no signif chg -- poor R wave progression Lilliana Mishra DO Flu Vaccine (Quadrivalent) 71101Xy: On: 17-Feb-2018 Intent Belinda May Comments: Lot #[id number]-L dltd, IMAmount: 0.5mlVIS reviewed and ABN signedgiven by:CHASE Phan reviewed and ABN signed CHEST XRAY, PA & LATERAL (54764)By: On: 10-Nov-2017 Intent Louise Darby Spirometry (17364)By: Wilner, On: 10-Nov-2017 Intent Louise Comments: Normal X-RAY RIGHT WRIST, 3+ VIEWS On: 01-Sep-2017 Intent ([id number])By: Lilliana Mishra DO, DO, Kathleen Radiology - Wrist - LeftBy: Tad On: 01-Sep-2017 Intent Lilliana RIOS DO, Kathleen X-RAY OF COCCYX, TWO VIEWS On: 01-Sep-2017 Intent ([id number])By: Lilliana Mishra DO, DO, Kathleen PNEUM VAC ADLT/IMUMNOSPR, SBC/INTRM On: 29-Apr-2017 Intent ([id number])By: Lilliana Mishra DO Comments: pneumovax prefilled syringe injectionlot: [id number]: 07/05/2018L DELT IMpt tolerated 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 Lilliana Mishra DO Flu Vaccine (Quadrivalent) [id number]: On: 29-Jan-2017 Intent Lilliana Mishra DO, DO, Comments: lot: [id number]: 09/01/17ite/route: L david, IMamt: 0.5mlVIS and ABN signed when applicableALISHA Crow ORTHOSTATIC BLOOD PRESSURE On: 22-Aug-2016 Intent ASSESSMENT ([id number])By: Louise Darby Comments: Negative ULTRASOUND AORTA ([id number])By: Tad On: 18-Jul-2016 Intent Lilliana RIOS DO, Kathleen EMGBy: Ciesa Amy MAGAÑA On: 18-Oct-2014 Intent Nerve ConductionBy: Ciesa Amy MAGAÑA On: 18-Oct-2014 Intent E Radiology - Wrist - RightBy: Ciesa On: 18-Oct-2014 Intent Amy MAGAÑA E FLU VAC, SPLIT, >3 YEARS, INTRAMUSC On: 12-Jan-2013 Intent ([id number])By: Yoselin Evans Comments: Lot:[id number]:Dose:0.5mLRoute:IMSite:L DltdGiven By:JKMVIS signed IMMUNIZ ADMNIN, 1 VAC, SNGL/COMBO On: 12-Jan-2013 Intent ([id number])By: Yoselin Evans Eprescribed prescriptions ([id number])By: On: 04-Jan-2013 Intent Mignon Irving EKG ([id number])By: Mercedez Tapia On: 06-Apr-2012 Intent Comments: ekg showed normal sinus rhythym, normal axis, no acute st/t wave changes Eprescribed prescriptions ([id number])By: On: 06-Apr-2012 Intent Mercedez Tapia Eprescribed prescriptions ([id number])By: On: 17-Feb-2012 Intent Louise Hahn LPN FLU VAC, SPLIT, >3 YEARS, INTRAMUSC On: 02-Dec-2011 Intent ([id number])By: Mercedez Tapia Comments: Lot #[id number]/30/13Site-left deltoidgiven by: Theresa Lozano LPN Radiology - Hip - BilateralBy: Fast On: 02-Dec-2011 Intent DO, Mayra A IMMUNIZ ADMNIN, 1 VAC, SNGL/COMBO On: 02-Dec-2011 Intent ([id number])By: Mercedez Tapia [place] VACC, [place] ([id number])By: Regina, On: 08-Aug-2011 Margie Newsome Eprescribed prescriptions ([id number])By: On: 29-Jul-2011 Intent Fast DO Mayra A EKG ([id number])By: Mercedez Tapia On: 01-Apr-2011 Intent Comments: ekg showed normal sinus rhythym, normal axis, no acute st/t wave changes FLU VAC, SPLIT, >3 YEARS, INTRAMUSC On: 01-Apr-2011 Intent ([id number])By: Mercedez Tapia Comments: work TDAP VACCINE >7 IM ([id number])By: Mast On: 31-Jul-2010 Intent Loly COYLE Comments: Lot #:[id number] date: 05/27Amount given: 0.5 mlRoute: IMSite given: left deltoidGiven by: Son Marrero RN FLU VAC, SPLIT, >3 YEARS, INTRAMUSC On: 20-Feb-2010 Intent ([id number])By: Mercedez Tapia IMMUNIZ ADMNIN, 1 VAC, SNGL/COMBO On: 20-Feb-2010 Intent ([id number])By: Mercedez Tapia Comments: Lot #[id number]/Site-L armDose0.5mlgiven by: Radiology - Lumbar SpineBy: Fast DO, On: 25-Jul-2009 Intent Mayra A EKG ([id number])By: Mercedez Tapia On: 13-Feb-2009 Intent Comments: ekg showed normal sinus rhythym, normal axis, no acute st/t wave changes Radiology - Hip - RightBy: Fast DO, On: 23-Jun-2007 Intent Mayra A Radiology - Lumbar SpineBy: Fast DO, On: 23-Jun-2007 Intent Mayra A FLU VAC, SPLIT, >3 YEARS, INTRAMUSC On: 03-Feb-2007 Intent ([id number])By: Catia Clement Comments: Lot #[id number] Exp-09/14/07Site-left deltoid Dose0.5ccgiven by Paul Clement LPN IMMUNIZ ADMNIN, 1 VAC, SNGL/COMBO On: 03-Feb-2007 Intent ([id number])By: Catia Clement EKG ([id number])By: Mercedez Tapia On: 14-May-2006 Intent Comments: done-jjpekg showed normal sinus rhythym, normal axis, no acute st/t wave changes CT - Abdomen & Pelvis Stone On: 07-Apr-2006 Intent ProtocolBy: Fast DO, Mayra A Instructions Name Dates Details Non-smoker : How to access health information online Indication: Non-smoker Non-smoker : How to access health information online - Detail Indication: Non-smoker Non-smoker : Patient Instructions Indication: Non-smoker Chest pain, atypical : How to access health information online Indication: Chest pain, atypical Chest pain, atypical : Patient Instructions Indication: Chest pain, atypical Need for prophylactic vaccination and inoculation against influenza (Renamed from Need for immunization against influenza) : How to access health information online Indication: Need for prophylactic vaccination and inoculation against influenza (Renamed from Need for immunization against influenza) Need for prophylactic vaccination and inoculation against influenza (Renamed from Need for immunization against influenza) : How to access health information online - Detail Indication: Need for prophylactic vaccination and inoculation against influenza (Renamed from Need for immunization against influenza) Need for prophylactic vaccination and inoculation against influenza (Renamed from Need for immunization against influenza) : Patient Instructions Indication: Need for prophylactic vaccination and inoculation against influenza (Renamed from Need for immunization against influenza) Non-smoker : How to access health information online Indication: Non-smoker Non-smoker : How to access health information online - Detail Indication: Non-smoker Non-smoker : Patient Instructions Indication: Non-smoker BMI 33.0-33.9,adult : How to access health information online Indication: BMI 33.0-33.9,adult BMI 33.0-33.9,adult : How to access health information online - Detail Indication: BMI 33.0-33.9,adult Cough : Patient Instructions Indication: Cough BMI 33.0-33.9,adult : How to access health information online Indication: BMI 33.0-33.9,adult BMI 33.0-33.9,adult : How to access health information online - Detail Indication: BMI 33.0-33.9,adult BMI 33.0-33.9,adult : Patient Instructions Indication: BMI 33.0-33.9,adult BMI 33.0-33.9,adult : How to access health information online Indication: BMI 33.0-33.9,adult BMI 33.0-33.9,adult : How to access health information online - Detail Indication: BMI 33.0-33.9,adult BMI 33.0-33.9,adult : Patient Instructions Indication: BMI 33.0-33.9,adult BMI 32.0-32.9,adult : How to access health information online Indication: BMI 32.0-32.9,adult BMI 32.0-32.9,adult : How to access health information online - Detail Indication: BMI 32.0-32.9,adult BMI 32.0-32.9,adult : Patient Instructions Indication: BMI 32.0-32.9,adult Non-smoker : How to access health information online Indication: Non-smoker Non-smoker : How to access health information online - Detail Indication: Non-smoker Non-smoker : Patient Instructions Indication: Non-smoker BMI 32.0-32.9,adult : How to access health information online Indication: BMI 32.0-32.9,adult BMI 32.0-32.9,adult : How to access health information online - Detail Indication: BMI 32.0-32.9,adult BMI 32.0-32.9,adult : Patient Instructions Indication: BMI 32.0-32.9,adult BMI 32.0-32.9,adult : How to access health information online Indication: BMI 32.0-32.9,adult BMI 32.0-32.9,adult : How to access health information online - Detail Indication: BMI 32.0-32.9,adult BMI 32.0-32.9,adult : Patient Instructions Indication: BMI 32.0-32.9,adult Non-smoker : How to access health information online Indication: Non-smoker Non-smoker : How to access health information online - Detail Indication: Non-smoker Non-smoker : Patient Instructions Indication: Non-smoker Non-smoker : How to access health information online Indication: Non-smoker Non-smoker : How to access health information online - Detail Indication: Non-smoker Non-smoker : Patient Instructions Indication: Non-smoker Mixed hyperlipidemia : How to access health information online Indication: Mixed hyperlipidemia Mixed hyperlipidemia : How to access health information online - Detail Indication: Mixed hyperlipidemia Mixed hyperlipidemia : Patient Instructions Indication: Mixed hyperlipidemia Dizzy : Patient Instructions Indication: Dizzy Dizzy : How to access health information online Indication: Dizzy Dizzy : How to access health information online - Detail Indication: Dizzy Non-smoker : How to access health information online Indication: Non-smoker Non-smoker : How to access health information online - Detail Indication: Non-smoker Non-smoker : Patient Instructions Indication: Non-smoker Acquired hypothyroidism : How to access health information online Indication: Acquired hypothyroidism Acquired hypothyroidism : How to access health information online - Detail Indication: Acquired hypothyroidism Acquired hypothyroidism : Patient Instructions Indication: Acquired hypothyroidism Obesity : Patient Instructions Indication: Obesity Hypertension : Patient Instructions Indication: Hypertension Acquired hypothyroidism : Patient Instructions Indication: Acquired hypothyroidism Hypertension : Patient Instructions Indication: Hypertension Hypertension : Patient Instructions Indication: Hypertension Mixed hyperlipidemia : Patient Instructions Indication: Mixed hyperlipidemia Mixed hyperlipidemia : Patient Instructions Indication: Mixed hyperlipidemia Hypertension, benign : Patient Instructions Indication: Hypertension, benign Sinus infection : Patient Instructions Indication: Sinus infection Sleep disorder : Patient Instructions Indication: Sleep disorder Need for prophylactic vaccination and inoculation against influenza : Patient Instructions Indication: Need for prophylactic vaccination and inoculation against influenza Encounters Review On: 06-Apr-2018 10:24 [facility] Visit On: 06-Apr-2018 8:28 Encounter Reason: Follow up tests - Diagnostic tests include ECHO, other (labs 04/01) and ultrasound (liver). Date: (04/01/17). Current symptoms include chest pain. Note for Discuss procedure results: stress test and echo, End: 06-Apr-2018 9:51 [ADDITIONAL REASON] Chest Pain - Symptoms include chest pain. The pain is located in the epigastrium. The patient describes the pain as heavy, pressure-like and sharp. Onset was sudden. Onset followed a large meal (starting to associate it with certain foods). Note for Chest pain: the foods she identifies are spicy -- hi fat content Encounter Diagnosis: BMI 33.0-33.9,adult, Non-smoker, Fatty liver, RUQ pain, Chest pain, atypical [facility] Visit On: 26-Mar-2018 11:43 Encounter Reason: Chest Pain - No changes in management were made at the last visit. Symptoms include chest pain, while symptoms do not include cough. The pain is located in the left anterior chest. The pain radiates to End: 26-Mar-2018 13:29 the back (twinges and spasms. latrice if she will lay on her back for prolonged time) and left arm. Onset was sudden 2 week(s) ago. There is no known event that preceded symptom onset. The patient describes this as moderate in severity. Note for Chest pain: last week- odd pain in left side of chest and in left arm. no tingling more of a hurt type of pain ?lasted 2mins or so - no assoc no sweats, so b, n/t or n/v -- no more fatigue-- sine then occassional but qd twinge like a pinch left side of chest - momentarily --occurs with ??rest or activity. admits may notice more with meals --no dianna colored stool no gas no burping - no bloating Encounter Diagnosis: BMI 33.0-33.9,adult, Non-smoker, Chest pain, atypical, Epigastric pain, RUQ pain [facility] Office Visit On: 17-Feb-2018 14:21 Encounter Reason: Injections - The medication the patient is here to receive is other (flu shot).Encounter Diagnosis: Need for prophylactic vaccination and inoculation against influenza (Renamed from Need for immunization against influenza) End: 18-Feb-2018 9:02 [facility] Visit On: 02-Feb-2018 13:12 Encounter Reason: Sinusitis - No changes in management were made at the last visit. Symptoms include nasal congestion and cough, while symptoms do not include ear fullness or ear pain. Onset was sudden 2 day(s) ago. The End: 02-Feb-2018 13:43 symptoms occur constantly. The patient describes this as moderate in severity and worsening. Note for Sinusitis: Symptoms started about 4 days ago with sore throat, post nasal drainage, cough-thick ye llow, loosing voice. ??No sinus pressure, pain, CP, SOB, wheezing, fever or chills, body aches. Has tried antihistamine, flonase, nasal saline rinse, vit c.- nothing is helping. Leaving for [place] tomorrow. History of sinus infections. Encounter Diagnosis: BMI 33.0-33.9,adult, Non-smoker, Sinusitis, bacterial, Cough [facility] Office Visit On: 10-Nov-2017 13:53 Encounter Reason: Cough - Symptoms include cough. The cough is described as productive. Cough onset was 4 week(s) ago. Note for Cough: Symptoms started 4 weeks ago with a cough, SOB while in [place]. Returned home yeste End: 10-Nov-2017 14:38 rday. Temperature changes and dry October in [place] very windy and dry dust storms. Coughing up clear to slight yellow drainage, Slight SOB. No nasal drainage, headaches, sore throat, fever or chills. Kaplan s allergies to dust. Has been taking leslie, and generic benadryl. Not using nasal sprayEncounter Diagnosis: Non-smoker, BMI 33.0-33.9,adult, Cough, SOB (shortness of breath), Elevated blood pressure reading [facility] Office Visit On: 01-Sep-2017 11:23 Encounter Reason: Follow up tests - Date: (08/28/17 labs).Encounter Diagnosis: Non- smoker, BMI 33.0-33.9,adult, Acquired hypothyroidism, Hypertension, benign, Abnormal TSH, Mixed hyperlipidemia, Joint pain, Tailbone injury, initial encounter, End: 01-Sep-2017 12:57 Acute wrist pain, unspecified laterality, VITAMIN D DEFICIENCY (Renamed from Avitaminosis D) [facility] Office Visit On: 29-Jul-2017 10:52 Encounter Reason: Follow up acute care visit - The patient feeling better since last seen and improving. Patient has been compliant with instructions. Current medication use: no side effects and compliant with dosing reg End: 29-Jul-2017 11:12 imen. Patient sleeps 7 hours per night. Impact of disease: emotional impact-mild. Nutrition: balanced diet and supplemental vitamins. The medical issues the patient is following up for include other (ADHD).Encounter Diagnosis: Non-smoker, BMI 33.0-33.9,adult, Attention deficit, Depression, Mixed hyperlipidemia, VITAMIN D DEFICIENCY (Renamed from Avitaminosis D), Hypertension, benign, Acquired hypothyroidism [facility] Visit On: 30-Jun-2017 10:35 Encounter Reason: ADHD Initial Evaluation - Adult - Symptoms include short attention span, impulsive behavior, hyperactive behavior, easy distractibility, poor listening, forgetfulness, difficulty remaining seated and ex End: 30-Jun-2017 11:19 cessive talking. The symptoms occur at home, during social events, in the morning, in the afternoon and in the evening. Onset was gradual at age 60. The symptoms are described as moderate in severity an d worsening. The patient is not currently being treated for this problem. By report there is good compliance with treatment. Pertinent medical history includes depression and thyroid disorder.Encounter Diagnosis: BMI 32.0-32.9,adult, Non-smoker, Attention deficit, Attention deficit disorder (ADD) in adult, Depression [facility] Visit On: 29-Apr-2017 11:04 Encounter Diagnosis: Motion sickness (994.6), BMI 32.0-32.9,adult, Non-smoker, Need for malaria prophylaxis, Attention deficit disorder (ADD) in adult, Pneumococcal vaccination given End: 29-Apr-2017 14:08 [facility] Lab Order On: 13-Mar-2017 10:39 Encounter Diagnosis: Acquired hypothyroidism End: 13-Mar-2017 10:45 [facility] Office Visit On: 12-Mar-2017 12:12 Encounter Reason: Follow up acute care visit - The patient feels the same. Patient has been compliant with instructions. Current medication use: no side effects and compliant with dosing regimen. Patient sleeps 7 hours p End: 12-Mar-2017 12:54 er night. Impact of disease: emotional impact-mild. Nutrition: balanced diet and supplemental vitamins. The medical issues the patient is following up for include other (cough).Encounter Diagnosis: BMI 32.0-32.9,adult, Non-smoker, Cough, Allergic Rhinitis(477.9) [facility] Visit On: 29-Jan-2017 14:02 Encounter Reason: Follow up for chronic medical issues - The patient feels well with minor complaints, has good energy level and is sleeping well. Patient has been compliant with instructions. Current medication use: no End: 29-Jan-2017 15:33 side effects and compliant with dosing regimen. Patient sleeps 7 hours per night. Nutrition: balanced diet and supplemental vitamins. The medical issues the patient is following up for include All ident ified problems below, high blood pressure, high cholesterol and other. blood pressure range :.Encounter Diagnosis: BMI 32.0-32.9,adult, Non-smoker, Hypertension, benign, VITAMIN D DEFICIENCY (Renamed from Avitaminosis D), Acquired hypothyroidism, Mixed hyperlipidemia, Need for prophylactic vaccination and inoculation against influenza (Renamed from Need for immunization against influenza) [facility] Annotation/Addendum On: 12-Nov-2016 12:27 Encounter Diagnosis: Unspecified Diagnosis End: 12-Nov-2016 12:28 [facility] Office Visit On: 22-Aug-2016 11:47 Encounter Reason: Diarrhea - Adult - The last clinic visit was 6 day(s) ago. Symptoms include diarrhea, fecal urgency, abdominal cramps and nausea. The stools are described as loose and watery. Onset was sudden. The symp End: 22-Aug-2016 14:50 toms occur intermittently. This is described as severe and unchanged. Symptoms are exacerbated by eating (trying to eat a bland diet for several days). Associated symptoms include lethargy, headache and myalgias. Current treatment includes opioid antidiarrheals.Encounter Diagnosis: BMI 33.0-33.9,adult, Non-smoker, Diarrhea, unspecified type, Nausea, Dizziness [facility] Office Visit On: 18-Jul-2016 14:47 Encounter Reason: belly flutterEncounter Diagnosis: BMI 34.0-34.9,adult, Non-smoker, Hypertension, benign, Pulsatile abdomen, Allergic reaction to chemical substance, accidental or unintentional, sequela End: 18-Jul-2016 15:05 [facility] Visit On: 26-Jun-2016 9:51 Encounter Reason: Follow up for chronic medical issues - The patient feels well with minor complaints (skin issue on left index finger), has good energy level and is sleeping poorly (rojas splints keep awake). Patient has End: 26-Jun-2016 10:53 been compliant with instructions. Current medication use: no side effects and compliant with dosing regimen. Patient sleeps 7 (rojas splints keep awake) hours per night. Nutrition: balanced diet, supple mental vitamins and low salt diet. The medical issues the patient is following up for include All identified problems below and high blood pressure. Note for Follow up for chronic medical issues: she did nutrimost ??- and now fasting one day a week with lent and giving up sweets- bp is good- her thyroid off some is taking with food andmeds so clarified that and maybe why chol off so much, [ADDITIONAL REASON] Follow up tests - Diagnostic tests include other (labs). Date: (06/24/16). Encounter Diagnosis: Non-smoker, BMI 32.0-32.9,adult, Mixed hyperlipidemia, Achilles tendinitis of right lower extremity, Acquired hypothyroidism, Hypertension, benign, Depression, Urgency-frequency syndrome, Weight gain, Cellulitis [facility] Phone Encounter On: 26-Dec-2015 15:29 Encounter Diagnosis: Unspecified Diagnosis End: 26-Dec-2015 15:33 [facility] Office Visit On: 09-Nov-2015 13:11 Encounter Reason: Dizziness - No changes in management were made at the last visit. Symptoms include dizziness and difficulty ambulating. The dizziness is described as vertigo. Onset was sudden 1 hour(s) ago. There is no End: 09-Nov-2015 13:52 known event that preceded symptom onset. The symptoms occur constantly. The patient describes this as severe and worsening. Associated symptoms include nausea and neck stiffness, while associated sympt oms do not include vomiting, headache or neck pain. The patient is not currently being treated for this problem.Encounter Diagnosis: Dizzy [facility] Office Visit On: 29-Sep-2015 9:56 Encounter Reason: Skin Lesions - Symptoms include multiple skin lesions. Lesion(s) are located on the left side of the face and right hand. The patient describes the lesion(s) as flesh-colored. Onset was 3 week(s) ago. T End: 29-Sep-2015 10:50 he symptoms occur constantly. Note for Skin lesions: Rt index finger not well defined sebaceous cyst pt asking for I&D Encounter Diagnosis: Sebaceous cyst [facility] Office Visit On: 15-Aug-2015 12:14 Encounter Reason: Follow up tests - Diagnostic tests include other (labs). Date: (08/11/15). Current symptoms include other (achilles tendon pain on right)., End: 15-Aug-2015 21:05 [ADDITIONAL REASON] Achilles Tendon Strain - Symptoms include pain, stiffness, tenderness and decreased weight bearing, while symptoms do not include swelling. Symptoms are located in the right proxima l Achilles tendon and the right distal Achilles tendon. The pain radiates to the calf. The patient describes the pain as aching and dull. Onset was gradual month(s) ago. The symptoms occur constantly. T he patient describes symptoms as moderate in severity and unchanged. Associated symptoms do not include foot numbness, foot weakness or leg pain. Encounter Diagnosis: Non-smoker, BMI 30.0-30.9,adult, Acquired hypothyroidism, VITAMIN D DEFICIENCY (Renamed from Avitaminosis D), Mixed hyperlipidemia, Achilles tendinitis of right lower extremity [facility] Visit On: 14-Jun-2015 15:41 Encounter Reason: Follow up for chronic medical issues - The patient feels well with minor complaints (itchy navel), has good energy level and is sleeping well. Patient has been compliant with instructions. Current medic End: 15-Jun-2015 8:47 ation use: no side effects and compliant with dosing regimen. Patient sleeps 7 hours per night. Nutrition: balanced diet, supplemental vitamins and low salt diet. The medical issues the patient is follo wing up for include All identified problems below and high blood pressure. Note for Follow up for chronic medical issues: she did nutrimost ??- and now fasting one day a week with lent and giving up s weets-bp is good- her thyroid off some is taking with food andmeds so clarified that and maybe why chol off so much, [ADDITIONAL REASON] Follow up, Laboratory Test Results - Date: (05/30/15). , [ADDITIONAL REASON] Itching - Symptoms include pruritus, while symptoms do not include rash or skin pain. Symptom locations include the abdomen (belly button). Onset was gradual year(s) ago. There is n o known event that preceded symptom onset. The symptoms occur intermittently. The patient describes this as unchanged. Associated symptoms do not include fever, chills or nausea. The patient is not currently being treated for this problem. Encounter Diagnosis: Acquired hypothyroidism, Depression, Hypertension, benign, Gastroesophageal reflux disease without esophagitis, VITAMIN D DEFICIENCY (Renamed from Avitaminosis D), Mixed hyperlipidemia [facility] Phone Encounter On: 02-Jun-2015 14:18 Encounter Diagnosis: Hypothyroidism End: 02-Jun-2015 14:26 [facility] Office Visit On: 18-Oct-2014 11:58 Encounter Reason: hand pain - Pain along ulnar side of hand. Bottom and side. Seems to be worsening. Pain is not constant. Encounter Diagnosis: SYMPTOMS INVOLVING SKIN AND OTHER INTEGUMENTARY TISSUE, DISTURBANCE OF SKIN SENSATION (782.0), End: 18-Oct-2014 12:12 Hypertension (401.0) [facility] Office Visit On: 20-Sep-2014 10:20 Encounter Reason: Sinusitis/ - The duration of the symptoms are 1 day The course has been worsening. The sinusitis/ has no relieving factors. Associated features include The symptoms have been associated with cough and e End: 20-Sep-2014 12:06 ar pain ( it feels like there are ants in the eustation tubes ). No previous evaluations were reported.Encounter Diagnosis: SINUSITIS, ACUTE NOS (461.9) [facility] Office Visit On: 18-Jul-2014 17:00 Encounter Reason: Follow up Meds - The patient feels well with minor complaints (some nausea and thinks the contrave but tolerable), has good energy level and is sleeping well. Patient has been compliant with instruction End: 18-Jul-2014 21:39 s. Current medication use: experiencing side effects and compliant with dosing regimen. Patient sleeps 7 hours per night. Nutrition: balanced diet. Note for Follow up Meds: also taking the 21 Day Lynnette nse- she is down 10 pounds she wants to give the contrave 3 more months- and see how does- see if she continue to loose once cleanse done- she not convinced nausea is from meds thinks maybe mixture of meds and cleanseEncounter Diagnosis: Obesity, Hypertension (401.0), Laryngitis [facility] Office Visit On: 06-Jun-2014 16:44 Encounter Reason: Follow up for chronic medical issues - The patient feels well with minor complaints and feels well with no complaints. Patient has been compliant with instructions. Current medication use: experiencing End: 06-Jun-2014 22:15 side effects (I did notice night sweats when starting contrave, but have figured out how changing time of taking med and what foods to take it with). Patient sleeps 7 hours per night. Impact of disease: emotional impact-mild. Nutrition: balanced diet. The medical issues the patient is following up for include high blood pressure. Note for Follow up for chronic medical issues: she is up to 4 pills a day- she is 5 pounds down- at home and now tolerating well and thinks is affecting appetitie- no behaviour side effects, [ADDITIONAL REASON] Follow up Meds - The patient feels well with minor complaints (Did have night sw eats, but went away). Patient has been compliant with instructions. Current medication use: experiencing side effects (night sweats, but went away). Patient sleeps 7 hours per night. Impact of disease: emotional impact-mild. Nutrition: balanced diet. Encounter Diagnosis: Hypertension (401.0), Hyperlipidemia, Mixed (272.2), Obesity, Depression (311.) [facility] Office Visit On: 28-Mar-2014 17:07 Encounter Reason: Follow up for chronic medical issues - The patient feels well with minor complaints (uti symptoms), has good energy level and is sleeping well. Patient has been compliant with instructions. Current medi End: 28-Mar-2014 18:59 cation use: no side effects and compliant with dosing regimen. Patient sleeps 7 hours per night. Nutrition: inappropriate diet, supplemental vitamins and low salt diet. The medical issues the patient is following up for include All identified problems below, depression, gastric reflux, high blood pressure and high cholesterol., [ADDITIONAL REASON] Follow up, Laboratory Test Results - Date: (03/24/14). , [ADDITIONAL REASON] UTI - The urinary symptoms are described as frequency, urgency and burning. The symptoms have been occurring for hours and have been increasing. There has been no associated fever, abdominal pain, chills, nausea, vomiting or low back pain. Encounter Diagnosis: Hypothyroidism(244.9), DYSURIA (Renamed from Difficult or painful urination), Hypertension (401.0), Depression (311.), Hyperlipidemia, Mixed (272.2), VITAMIN D DEFICIENCY (Renamed from Avitaminosis D) [facility] Office Visit On: 02-Mar-2014 16:01 Encounter Diagnosis: Unspecified Diagnosis End: 02-Mar-2014 16:28 [facility] Office Visit On: 02-Mar-2014 15:27 Encounter Reason: Cough - The onset of the cough has been sudden. The cough is characterized as productive of mucoid sputum. The amount of sputum produced is scanty. The cough occurs all the time. The symptoms are aggra End: 02-Mar-2014 15:53 vated by supine posture. The symptoms have been associated with headache, while the symptoms have not been associated with wheezing. the color of the sputum is greenish and yellowish.Encounter Diagnosis: SINUSITIS, ACUTE NOS (461.9), Allergic Rhinitis(477.9) [facility] Office Visit On: 31-Dec-2013 11:23 Encounter Reason: Cough - The onset of the cough has been sudden. The cough is characterized as productive of mucoid sputum. The amount of sputum produced is scanty. The cough occurs all the time. The symptoms are aggra End: 31-Dec-2013 11:59 vated by supine posture. The symptoms have been associated with hoarseness, while the symptoms have not been associated with fever or headache. the color of the sputum is yellowish. Note for Cough : laryngitis and cough post nasal drip Encounter Diagnosis: Laryngitis, Allergic Rhinitis(477.9) [facility] Office Visit On: 22-Oct-2013 13:16 Encounter Reason: Follow up for chronic medical issues - The patient feels well with minor complaints (skin issue under abd folds), has good energy level and is sleeping well. Patient has been compliant with instructions End: 24-Oct-2013 21:53 . Current medication use: no side effects and compliant with dosing regimen. Patient sleeps 7 hours per night. Nutrition: inappropriate diet, supplemental vitamins and low salt diet. The medical issues the patient is following up for include All identified problems below, depression, gastric reflux, high blood pressure and high cholesterol. Note for Follow up for chronic medical issues: bpis good and weight coming down, [ADDITIONAL REASON] Follow up, Laboratory Test Results - Date: (10/11/13). , [ADDITIONAL REASON] Skin Problems - The onset of the skin problems has been gradual and they have be en occurring in a persistent pattern for months. The course has been constant. The problem is characterized as itching, a change in skin color and other (raised). Lesions are described as red. The spots were first seen on the abdomen (abd folds). There has been no progression. There has been no associated fever, itching or pain. Encounter Diagnosis: Hypertension (401.0), Depression (311.), Hypothyroidism(244.9), OTHER SEBORRHEIC KERATOSIS, Hyperlipidemia, Mixed (272.2) [facility] Office Visit On: 02-Jun-2013 15:22 Encounter Reason: Follow up for chronic medical issues - The patient feels well with minor complaints (look at lesion on back), has good energy level and is sleeping well. Patient has been compliant with instructions. Cu End: 03-Jun-2013 22:46 rrent medication use: no side effects and compliant with dosing regimen. Patient sleeps 7 hours per night. Nutrition: inappropriate diet, supplemental vitamins and low salt diet. The medical issues the patient is following up for include All identified problems below, depression, gastric reflux, high blood pressure and high cholesterol. Note for Follow up for chronic medical issues: she is on waitin g list for pascual gilmore- but she has gotten better attidtude about diet last week or so and weight down 2 pounds- mood good and gerd no issues feels well in genral, [ADDITIONAL REASON] Follow up, Laboratory Test Results - Date: (05/01/13). , [ADDITIONAL REASON] Skin Lesions - Symptoms include single skin lesion. Lesion(s) are located on the right trunk area (back). The patient describes the lesion(s) as painless and prince. Onset was gradual month(s) ago. Encounter Diagnosis: Hypertension (401.0), GERD (530.81), Hyperlipidemia, Mixed (272.2), Depression (311.), travel, VITAMIN D DEFICIENCY (Renamed from Avitaminosis D), OTHER SEBORRHEIC KERATOSIS [facility] Phone Encounter On: 13-Jan-2013 16:59 Encounter Diagnosis: Hypertension (401.0), Hyperlipidemia, Mixed (272.2), Hypothyroidism(244.9) End: 13-Jan-2013 17:02 [facility] Office Visit On: 12-Jan-2013 17:10 Encounter Reason: Injections - The medication the patient is here to receive is other (flu ).Encounter Diagnosis: Need for prophylactic vaccination and inoculation against influenza (V04.81) End: 12-Jan-2013 22:18 [facility] Office Visit On: 04-Jan-2013 16:16 Encounter Reason: Follow up for chronic medical issues - The patient feels well with minor complaints (seeing chiropractor for pinched nerve since September. cervical spine, goes down L arm), has good energy level and is slee End: 04-Jan-2013 20:13 ping poorly. Patient has been compliant with instructions. Current medication use: no side effects and compliant with dosing regimen. Patient sleeps 6 (night sweats and picnhed nerve) hours per night. N utrition: inappropriate diet, supplemental vitamins and low salt diet. The medical issues the patient is following up for include All identified problems below, depression, gastric reflux, high blood pr essure and high cholesterol. Note for Follow up for chronic medical issues: wants to see Pascual Gilmore - for eating issues- weight up- mom passed awayin july - doing ok- no gerd , [ADDITIONAL REASON] Follow up tests - Date: (01/02/13 blood work). Encounter Diagnosis: Depression (311.), GERD (530.81), Hypertension (401.0), Hypothyroidism(244.9), Hyperlipidemia, Mixed (272.2), Allergic Rhinitis(477.9), obsessive compulsive eating [facility] Office Visit On: 03-Aug-2012 15:50 Encounter Reason: Follow up for chronic medical issues - The patient feels well with no complaints, has good energy level and is sleeping well. Patient has been compliant with instructions. Current medication use: no catracho End: 03-Aug-2012 22:01 e effects and compliant with dosing regimen. Patient sleeps 6 hours per night. Nutrition: inappropriate diet, supplemental vitamins and low salt diet. The medical issues the patient is following up for include All identified problems below, depression, gastric reflux, high blood pressure and high cholesterol. Note for Follow up for chronic medical issues: she thinks weight up from fluid from weekend foods- - not sob- little swelling from - bp is good and leaving for [place] 2 weeeks got all shots-mood garrett doing ok- really at peace with things-her mom is going to pass away soon but ready for this- no gerd, [ADDITIONAL REASON] Follow up, Laboratory Test Results - Date: (07/30/12). Encounter Diagnosis: Hyperlipidemia, Mixed (272.2), Hypothyroidism(244.9), Hypertension (401.0), GERD (530.81), Depression (311.), Sinus infection (473.9), Knee pain (719.46) [facility] Refill Request On: 08-Jun-2012 14:42 Encounter Diagnosis: Motion sickness (994.6) End: 08-Jun-2012 14:46 [facility] Office Visit On: 06-Apr-2012 15:23 Encounter Reason: Follow up for chronic medical issues - The patient feels well with no complaints, has good energy level and is sleeping well. Patient has been compliant with instructions. Current medication use: no catracho End: 06-Apr-2012 16:12 e effects and compliant with dosing regimen. Patient sleeps 6 hours per night. Nutrition: inappropriate diet, supplemental vitamins and low salt diet. The medical issues the patient is following up for include All identified problems below, depression, gastric reflux, high blood pressure and high cholesterol., [ADDITIONAL REASON] Follow up, Laboratory Test Results - Date: (03/31/12). Encounter Diagnosis: GERD (530.81), Hypertension,benign(401.1), Allergic Rhinitis(477.9), Depression (311.), Hypothyroidism(244.9), Hyperlipidemia, Mixed (272.2), Hypertension (401.0) [facility] Office Visit On: 17-Feb-2012 16:33 Encounter Reason: Sinusitis - The last clinic visit was 3 day(s) ago. No changes in management were made at the last visit. Symptoms include nasal congestion, clear rhinorrhea, forehead pain, cough and headache, while sy End: 17-Feb-2012 16:59 mptoms do not include ear fullness or ear pain. Onset was sudden. The symptoms occur constantly. The patient describes this as moderate in severity and worsening. Associated symptoms do not include chil ls or fever. The patient is not currently being treated for this problem.Encounter Diagnosis: Sinus infection (473.9) [facility] Office Visit On: 02-Dec-2011 15:43 Encounter Reason: Follow up for chronic medical issues - The patient feels well with minor complaints (hip pain continues- she wonders if its not arthritis?), has good energy level and is sleeping well. Patient has been End: 02-Dec-2011 20:24 compliant with instructions. Current medication use: no side effects and compliant with dosing regimen. Patient sleeps 6 hours per night. Nutrition: inappropriate diet, supplemental vitamins and low elicia t diet. The medical issues the patient is following up for include All identified problems below, depression, gastric reflux, high blood pressure and high cholesterol. Note for Follow up for chronic me dical issues: she is down 10more pounds and realy trying- - she is trying to do more exercise- she feels mood is good thinks issue with lane is menopausal and doesnt want to shut down- using licorice root for menopause, [ADDITIONAL REASON] Follow up, Laboratory Test Results - Date: (11/15/11). Encounter Diagnosis: Need for prophylactic vaccination and inoculation against influenza (V04.81), Hypertension (401.0), GERD (530.81), Hyperlipidemia, Mixed (272.2), Hypothyroidism(244.9), Sleep disorder (780.50), Pelvis/Thigh/Hip Pain (719.45), Knee pain (719.46) [facility] Phone Encounter On: 08-Aug-2011 13:18 Encounter Diagnosis: SHINGLES,NEED FOR PROPHYLACTIC VACCINATION AND INOCULATION AGAINST (V05.8) End: 08-Aug-2011 13:23 [facility] Office Visit On: 29-Jul-2011 15:31 Encounter Reason: Follow up for chronic medical issues - The patient feels well with minor complaints (uti symptoms), has good energy level and is sleeping well. Patient has been compliant with instructions. Current medi End: 29-Jul-2011 22:10 cation use: no side effects and compliant with dosing regimen. Patient sleeps 7 hours per night. Nutrition: inappropriate diet, supplemental vitamins and low salt diet. The medical issues the patient is following up for include All identified problems below, depression, gastric reflux, high blood pressure and high cholesterol. Note for Follow up for chronic medical issues: weight down 8 pounds and b p is good she is feeling good- she went off flax and good chol went down, [ADDITIONAL REASON] Follow up, Laboratory Test Results - Date: (07/24/11). Encounter Diagnosis: Low back pain (724.2), Hypothyroidism(244.9), Hyperlipidemia, Mixed (272.2), GERD (530.81), Hypertension (401.0) [facility] Office Visit On: 01-Apr-2011 15:20 Encounter Reason: Follow up for chronic medical issues - The patient feels well with minor complaints (ongoing b/l hip pain- keeping her up at hs), has good energy level and is sleeping well. Patient has been compliant w End: 01-Apr-2011 16:07 ith instructions. Current medication use: no side effects and compliant with dosing regimen. Patient sleeps 6 hours per night. Nutrition: inappropriate diet, supplemental vitamins and low salt diet. The medical issues the patient is following up for include All identified problems below, depression, gastric reflux, high blood pressure and high cholesterol. Note for Follow up for chronic medical issues: no gerd- - sleepign well- and mood is good, [ADDITIONAL REASON] Follow up, Laboratory Test Results - Date: (03/23/11). Encounter Diagnosis: Need for prophylactic vaccination and inoculation against influenza (V04.81), Hypertension (401.0), GERD (530.81), Hyperlipidemia, Mixed (272.2), Hypothyroidism(244.9), Depression (311.) [facility] Office Visit On: 27-Nov-2010 15:36 Encounter Reason: Follow up, Laboratory Test Results - Date: (10.29.10)., [ADDITIONAL REASON] Follow up for chronic medical issues - The patient feels well with no complaints End: 27-Nov-2010 16:23 , has good energy level and is sleeping well. Patient has been compliant with instructions. Current medication use: no side effects and compliant with dosing regimen. Patient sleeps 7 hours per night. N utrition: balanced diet, supplemental vitamins and low salt diet. The medical issues the patient is following up for include All identified problems below, depression, gastric reflux, high blood pressur e and high cholesterol. weight : (home- 197- naked). 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 [employer]- dilshad- so feels like needs to increase lexapro -to help stabilize the ups and downs Encounter Diagnosis: Hypothyroidism(244.9), GERD (530.81), Hyperlipidemia, Mixed (272.2), Hypertension (401.0), Allergic Rhinitis(477.9), Depression (311.) [facility] Office Visit On: 31-Jul-2010 15:51 Encounter Reason: Injections - The medication the patient is here to receive is other (tdap).Encounter Diagnosis: VACCINE AGAINST TETANUS TOXOID (V03.7) End: 31-Jul-2010 16:37 [facility] Annotation/Addendum On: 31-Jul-2010 14:59 Encounter Diagnosis: Unspecified Diagnosis End: 31-Jul-2010 15:04 [facility] Office Visit On: 28-Feb-2010 15:28 Encounter Reason: Sinusitis/ - The duration of the symptoms are 2 days The course has been increasing. The sinusitis/ has no relieving factors. Associated features include The symptoms have been associated with cough, ea End: 28-Feb-2010 15:46 r pain (itch) and nasal discharge/stuffy nose (yellow), while the symptoms have not been associated with sinus pain, sore throat or teeth pain. No previous evaluations were reported. none reported.Encounter Diagnosis: SYMPTOMS INVOLVING RESPIRATORY SYSTEM AND OTHER CHEST SYMPTOMS; COUGH (786.2), SINUSITIS, ACUTE NOS (461.9) [facility] Office Visit On: 20-Feb-2010 16:12 Encounter Reason: Follow up for chronic medical issues - The patient feels well with minor complaints (ongoing hip pain/aches after sleeping so long), has good energy level and is sleeping well. Patient has been complian End: 22-Feb-2010 22:32 t with instructions. Current medication use: no side effects and compliant with dosing regimen. Patient sleeps 7 hours per night. Nutrition: balanced diet, supplemental vitamins and low salt diet. The m edical issues the patient is following up for include All identified problems below, depression, gastric reflux, high blood pressure and high cholesterol. weight : (home- 197- naked). Note for Follow u p for chronic medical issues: tried restarting statin and gives her hip pain - tried skipping doseages - and not helping- if sleeps more than 6 hours now gets stiff but not pain like when on statin- no gerd- - she feels she is getting rid of wart and doesnt want to see rewards consultant- she is up to 5 mg of lexapro and that is helping , [ADDITIONAL REASON] Follow up, Laboratory Test Results - Date: (12/25/09). Encounter Diagnosis: Depression (311.), GERD (530.81), Allergic Rhinitis(477.9), Hypothyroidism(244.9), Need for prophylactic vaccination and inoculation against influenza (V04.81), Hyperlipidemia, Mixed (272.2) [facility] Office Visit On: 23-Oct-2009 11:19 Encounter Reason: Follow up for chronic medical issues - The patient feels well with no complaints ,has good energy level and is sleeping well. Patient has been compliant with instructions. Current medication use: no catracho End: 23-Oct-2009 11:58 e effects and compliant with dosing regimen. Patient sleeps 7 hours per night. Nutrition: balanced diet ,supplemental vitamins and low salt diet. The medical issues the patient is following up for inclu de All identified problems below ,depression ,gastric reflux ,high blood pressure and high cholesterol. weight : (205). Note for Follow up for chronic medical issues: weight down 11 pounds and trying -- physician weight loss - has been successful-her bps have been in 130s- she is continuing to work on that- no gerd and taking lexapro and doing ok- she saw chiropractor and her pain in hip pain goneEncounter Diagnosis: GERD (530.81), Depression (311.), Hypertension,benign(401.1), Hypothyroidism(244.9), Hyperlipidemia, Mixed (272.2), Pelvis/Thigh/Hip Pain (719.45), Warts (078.10) [facility] Historical Summary On: 02-Oct-2009 8:24 [facility] End: 02-Oct-2009 8:26 Office Visit On: 25-Jul-2009 10:29 Encounter Reason: Follow up for chronic medical issues - The patient feels well with minor complaints (B/L hip pain continues and is worsening. Dull ache and gets very stiff.) ,has good energy level and is sleeping well. End: 25-Jul-2009 11:18 Patient has been compliant with instructions. Current medication use: no side effects and compliant with dosing regimen. Patient sleeps 5 (cause of hip pain) hours per night. Nutrition: balanced diet , supplemental vitamins and low salt diet. The medical issues the patient is following up for include All identified problems below ,depression ,gastric reflux ,high blood pressure and high cholesterol. w eight : (205). Note for Follow up for chronic medical issues: hurts to sit and lay- bettter walking than laying or sitting- really bad if sits alot- doesnt think chol med related- her bp is good- no p ain in legs or weak or numb- taking only 2.5 of lisinopril so will stay there, [ADDITIONAL REASON] Follow up, Laboratory Test Results - Date: (06/30/09). Note for Follow up, Labor atory Test Results: grace tobiasshahla Jimenez has family hx of thyroid- having hip pain thought was statin but is off and stillhaving- - her buttocks and pelvis- just at night- - no leg pain Encounter Diagnosis: Hypothyroidism(244.9), Hypertension,benign(401.1), Hyperlipidemia, Mixed (272.2), GERD (530.81), Pelvis/Thigh/Hip Pain (719.45) [facility] Historical Summary On: 18-Apr-2009 7:48 [facility] End: 18-Apr-2009 7:49 Office Visit On: 17-Apr-2009 15:30 Encounter Reason: Follow up, Laboratory Test Results - Date: (03/14/09). Note for Follow up, Laboratory Test Results: grace botello family hx of thyroid- having hip pain thought was statin but is End: 17-Apr-2009 16:08 off and stillhaving- - her buttocks and pelvis- just at night- - no leg painEncounter Diagnosis: Hypertension,benign(401.1), Hypothyroidism(244.9), Hyperlipidemia, Mixed (272.2), GERD (530.81), Abnormal TSH (794.5), Pelvis/Thigh/Hip Pain (719.45) [facility] Historical Summary On: 11-Apr-2009 11:41 [facility] End: 11-Apr-2009 11:42 Office Visit On: 13-Feb-2009 15:01 Encounter Reason: Follow up for chronic medical issues - The patient feels well with minor complaints (lump on right ring finger) ,has good energy level and is sleeping well. Patient has been compliant with instructions. End: 13-Feb-2009 16:22 Current medication use: no side effects and compliant with dosing regimen. Patient sleeps 7 hours per night. Nutrition: balanced diet ,supplemental vitamins and low salt diet. The medical issues the pa lisa is following up for include All identified problems below ,depression ,gastric reflux ,high blood pressure and high cholesterol. weight :. Note for Follow up for chronic medical issues: she didn t take bp meds today- mom had stroke in mar and schedule got mixed up from this- hasnt been checking at home- mood is good- with 1/4 lexapro-- - no gerd -- taking the omeprozole on occ-n ever been scoped from above -scoped 8 years ago, [ADDITIONAL REASON] Follow up, Laboratory Test Results - Date: (11/24/08- on paper). Encounter Diagnosis: Hypertension,benign(401.1), GERD (530.81), Hyperlipidemia, Mixed (272.2), Depression (311.), Abnormal TSH (794.5) [facility] Office Visit On: 22-Sep-2007 14:18 Encounter Reason: Dizziness/ - The onset of the dizziness/ has been sudden and has been occurring in a persistent pattern for 3 days. The course has been constant. The dizziness/ is characterized as feeling in the head. End: 27-Sep-2007 20:41 The symptoms have been associated with nausea, while the symptoms have not been associated with ear infection ,fever ,loss of balance or vomiting. , [ADDITIONAL REASON] Nausea - The onset of the nausea has been sudden and has been occurring in a per sistent pattern for 3 days. The course has been constant. The nausea has no relationship to meals. The symptoms have no aggravating factors. The symptoms have no relieving factors. The symptoms have bee n associated with headache and vertigo, while the symptoms have not been associated with abdominal pain ,chest pain ,dark urine ,diarrhea ,dysuria ,fever ,upper respiratory infection symptoms or vomitin g. Note for Nausea: put on scop patch-- august 27- september 18-- was in [place]-- no side effects then - but since had off- 1 day after sx came-- having wierd dreams-- horrible nausea and feeling out of it-- n o vertigo- dizzy - just doesnt feel right-- no chest pain or sob-- hot to cold- no abdominal pain-- low grade headache- Encounter Diagnosis: Nausea (787.02), Dizziness(780.4), possible drug withdrawal [facility] Office Visit On: 23-Jun-2007 15:29 Encounter Reason: Knee Pain - The onset of the knee pain has been gradual following no specific incident and has been occurring in an intermittent (going up or down steps) pattern for months. The course has been recurren End: 23-Jun-2007 22:21 t. The knee pain is moderate. The knee pain is characterized as a sharp stabbing. The knee pain is described as being located in the under patella. The knee pain is aggravated by stairs. The knee pain i s relieved by rest (not going up or down steps). The symptoms have been associated with giving way ,painful ROM ,decreased ROM and difficulty going up and down stairs, while the symptoms have not been a ssociated with muscle stiffness ,muscle swelling ,muscle weakness ,catching ,locking ,fever ,chills or difficulty arising from chair. Note for Knee Pain: Pt feels she also has rojas splints in the righ t leg, but she thinks she has it figured out.- she thinks this is from new balance shoes since prior to her sx-- since changed her shoes she thinks this is significantly improved-- now also left geovanna pa in-- she thinks because she was nonwtbearing so long from right knee- hurts mostly up and down steps- she is doing some exercise with chafee-- not with walking- she thinks kneeling would be a problem- she takes advil and that is enough, [ADDITIONAL REASON] Hip Pain - The onset of the hip pain has been gradual following no specific incident and has been occurring in a persistent pattern for 2 months. The course has been recurrent. The hip pain is described as a moderate to severe dull aching. The hip pain is described as being located in the hip. The pain is aggravated by lying on affected side (usually after sleeping at night). Reli eving factors include walking (once up and moving). The symptoms have been associated with numbness and decreased range of motion, while the symptoms have not been associated with limping ,stiffness ,we akness ,tingling ,swelling in the leg ,skin rash ,trauma ,fever ,chills ,difficulty arising from chair ,difficulty arising from a kneeling position or difficulty donning shoes and socks. Note for Hip P ain: no sx in groin or back or buttock- at night she is getting some numbness on the right lateral leg-- - no weakness in the leg- sometimes when going down steps questions as will give out- no back pa in -- does hurt to lay on side - she is stiff for a while in the am Encounter Diagnosis: Hypertension,benign(401.1), Hyperlipidemia, Mixed (272.2), Knee pain (719.46), Pain in limb (729.5) [facility] Office Visit On: 08-May-2007 13:08 Encounter Diagnosis: Hypertension,benign(401.1), travel issues- she nneded papaerwork signed for going to [place] End: 08-May-2007 13:45 [facility] Office Visit On: 18-Feb-2007 15:07 Encounter Reason: Follow up for chronic medical issues - The patient feels well with no complaints ,has good energy level and is sleeping well. Patient has been compliant with instructions. Current medication use: no catracho End: 18-Feb-2007 16:07 e effects and compliant with dosing regimen. Nutrition: inappropriate diet ,supplemental vitamins and low salt diet. The medical issues the patient is following up for include All identified problems be low ,depression ,gastric reflux ,high blood pressure ,high cholesterol and other (allergic rhinitis). Note for Follow up for chronic medical issues: had bad news about her job yesterday and th inks that is why bp up- she gets it checked periodically and is always 120/70-- had cystoscopy at [facility] and he didnt find anythingEncounter Diagnosis: Hyperlipidemia, Mixed (272.2), GERD (530.81), Depression (311.), Hypertension,benign(401.1) [facility] Nurse Visit (Non-[place]) On: 03-Feb-2007 13:21 Encounter Diagnosis: Need for prophylactic vaccination and inoculation against influenza (V04.81) End: 03-Feb-2007 15:26 [facility] Refill Request On: 20-Aug-2006 14:53 [facility] End: 20-Aug-2006 14:54 Office Visit On: 14-Aug-2006 17:25 Encounter Diagnosis: Unspecified Diagnosis End: 14-Aug-2006 17:27 [facility] Nurse Visit On: 08-Aug-2006 14:00 Encounter Reason: Injections - The medication the patient is here to receive is other (typhoid). history: Patient is not currently . Encounter Diagnosis: typhoid vaccine given End: 08-Aug-2006 14:23 [facility] Office Visit On: 31-Jul-2006 16:21 Encounter Diagnosis: GERD (530.81), Depression (311.), traveler counseling, Hematuria (599.7) End: 31-Jul-2006 21:59 [facility] Office Visit On: 14-May-2006 9:27 Encounter Reason: Preoperative evaluation - The patient has good energy level and is sleeping well. Surgical procedures include: other (foot surgery, right foot- removing bunyun, shortening the meditarsal). Date of proce End: 16-May-2006 7:29 dure: (06/04/06). Previous problems include a reaction to general anesthesia (vomiting) and previous blood clots (had veins stripped for previous blood clot- right leg). Prosthetics include: eye glasses. Note for Preoperative evaluation: note pt was on hormones and had gone to [place] and ended up with a possible blood clot but never had it us to show for her- because it took care of itself - it had swollen- we discussed that any time laid up at higher risk for clot- hx of lung or heart problems and never a smokerEncounter Diagnosis: preop clearance, Hypertension (401.0), Hematuria (599.7), Pain in limb (729.5), GERD (530.81), Depression (311.) [facility] Historical Summary On: 09-May-2006 9:09 [facility] End: 09-May-2006 9:25 Office Visit On: 07-Apr-2006 12:01 Encounter Diagnosis: Hematuria (599.7) End: 07-Apr-2006 12:13 [facility] Office Visit On: 03-Mar-2006 15:35 Encounter Reason: Follow up for chronic medical issues - The patient feels well with no complaints. Patient has been compliant with instructions. Current medication use: no side effects. Patient sleeps 7 hours per night. End: 03-Mar-2006 16:57 Nutrition: balanced diet. The medical issues the patient is following up for include All identified problems below ,depression and high blood pressure. Note for Follow up for chronic medical issues: wt still going up- bp good- got flu shot- getting allergy shots now and cough ccomes and goes depending on the whether- mood is good - insurance wont pay for nexxium- never has gerd- she isnt convinced its done anything for her cough so will try without it- needs chol followupEncounter Diagnosis: Hypertension (401.0), Hyperlipidemia, Mixed (272.2), GERD (530.81), Hematuria (599.7), Depression (311.), Allergic Rhinitis(477.9) [facility] Office Visit On: 06-Jan-2006 14:44 [facility] End: 08-Jan-2006 10:34 Office Visit On: 28-Nov-2005 14:59 Encounter Reason: Follow up for chronic medical issues - The patient feels well with minor complaints (sinus congeston & drainage). Current medication use: no side effects. Patient sleeps 7 hours per night. The medic End: 28-Nov-2005 21:08 al issues the patient is following up for include depression ,gastric reflux ,high blood pressure and high cholesterol. Encounter Diagnosis: Hyperlipidemia, Mixed (272.2), Hypertension (401.0), GERD (530.81), Depression (311.), Allergic Rhinitis(477.9) [facility] Office Visit On: 15-Nov-2005 14:34 Encounter Reason: Finger problems - The onset of the finger problems has been acute and they have been occurring in a persistent pattern for 1 days. The course has been decreasing. The finger problems are described as mi End: 17-Nov-2005 21:47 ld (cold water makes it worse. warm water almost makes better. Very itchy. benadryl helps-tid). Note for Finger problems: WAS SITTING UNDER A TREE AND ALL OF A SUDDEN HER FINGER STARTED HURTING SHE LO OKED DOWN AND THERE WAS SOME TYPE OF INSECT STARTED TO SWELL RIGHT AWAY AND VERY ITCHY TODAY FEELS A LITTLE BETTER AND SWELLING HAS GONE DOWN HAS BEEN USING ANTIHISTIMINES WHICH IS HELPING.Encounter Diagnosis: CERTAIN ADVERSE EFFECTS NOT ELSEWHERE CLASSIFIED, ALLERGY, UNSPECIFIED (995.3), Hypertension (401.0), Insect bite, nonvenomous, of fingers, without mention of infection (915.4) [facility] Payers [employer]/MedicareDorene Miller; son guarantor
--- OUTSIDE RECORDS SUMMARY | 2018-06-05 22:04 | XMS RPT_ITS | Continuity of Care Document ---
:1950 Author Organization [facility] Address [facility] [address] [place] [address] Phone Care Team Providers Name Role Phone Tad DO Lilliana Unavailable Flako SALAZAR, Yahaira Kuhn Unavailable Beto Mayra Cline Unavailable Dimitris SALAZAR, Dr. Alex Dunlap Unavailable Pascual Knutson Unavailable Long NURSERY SCHOOL TEACHER, Petra L Unavailable Unavailable Selma, NURSERY SCHOOL TEACHER Louise Unavailable Unavailable Louise Darby Unavailable Unavailable Lang Osuna Unavailable Unavailable Unavailable Unavailable Problems Name Dates [...] age and overwhelmed busy. ? anxiety. workign wt pascual sow. i will talk to Dr. [...] Active Epigastric pain (R10.13, 789.06) Status: Active Gastroesophageal reflux disease without esophagitis [...] qd for 30 days Refills: 0 Ordered:26-Jun-2016 Leilanikyree ARCHANAAmy Start : 26-Jun-2016 Active Crestor 5 MG [...] Quantity: 30 {Tablet} Refills: 0 Ordered:09-Sep-2017 Kyra oTmas Start : 09-Sep-2017 Active Pantoprazole Sodium 40 MG Oral Tablet Delayed Release 1 (one) Tablet DR daily for 0 days Quantity: 30 {Tablet} Refills: 0 Ordered:26-Mar-2018 Camilo Mishra DO, DO, Kathleen Start : 26-Mar-2018 Active Pantoprazole Sodium 40 MG Oral Tablet Delayed Release 1 (one) Tablet DR daily for 0 days Quantity: 90 {Tablet} Refills: 3 Ordered:26-Mar-2018 Camilo Mishra DO, DO, Kathleen Start : 26-Mar-2018 Active Synthroid 100 MCG Oral Tablet 1 [...] 10 {Patch} Refills: 0 Ordered:26-Dec-2017 Tad RIOS Camilo RIOS Lilliana Start : 26-Dec-2017 Active VALTREX, 500MG [...] days Quantity: 60 {Tablet} Refills: 0 Ordered:01-Sep-2017 TadCamilo chan DO, DO, Kathleen Start : 01-Sep-2017 End : 01-Oct-2017 Inactive Ciprofloxacin HCl 500 MG Oral Tablet 1 (one) Tablet BID for 7 days Quantity: 14 {Tablet} Refills: 0 Ordered:29-Apr-2017 TadCamilo chan DO, DO, Kathleen Start : 29-Apr-2017 End : 06-May-2017 Inactive DELSYM, 30MG/5ML (Oral Liquid Extended Release) 1 Teaspoon(s) bid for 14 days Refills: 0 Ordered:15-May-2010 Leilanisylviason MAGAÑAAmy E Start : 28-Feb-2010 End : 14-Mar-2010 Inactive [...] QD for 0 days Refills: 0 Ordered:25-Jul-2009 Emily Tapia ZOSTAVAX, 09796PZK/0.65ML (Subcutaneous Solution Reconstituted) 1 (one) For Solution [...] qd for 0 days Refills: 0 Ordered:08-May-2007 Mercedez Tapia End : 08-May-2007 Discontinued FEXOFENADINE HCL, 60MG (Oral Tablet) 1 (one) Tablet Tablet bid for 0 days Quantity: 60 {Tablet} Refills: 0 Ordered:20-Sep-2014 Nikki Thompson LPN Start : 31-Dec-2013 End : 20-Sep-2014 Discontinued FISH OIL CONCENTRATE, 1000MG (Oral Capsule) 1 cap qd for 0 days Refills: 0 Ordered:18-Oct-2014 Dorene Torrez LPN End : 18-Oct-2014 Discontinued LICORICE ROOT (Powder) [...] days Quantity: 20 {Tablet} Refills: 0 Ordered:26-Jun-2016 Dorene Torrez LPN Start : 09-Nov-2015 End : 26-Jun-2016 Discontinued [...] days Quantity: 2 {Tablet} Refills: 0 Ordered:06-Apr-2012 Beto RIOSMayra A Start : 06-Apr-2012 End : 06-Apr-2012 Discontinued PREVACID, 30MG (Oral Capsule Delayed Release) [address] QD for 0 days Quantity: 90 {Capsule_DR} Refills: 3 Ordered:31-Jul-2006 Catia Clement Start : 31-Jul-2006 End : 20-Aug-2006 Discontinued SIMVASTATIN, 40MG (Oral Tablet) 1 (one) Tablet qd for 0 days Quantity: 90 {Tablet} Refills: 3 Ordered:13-Feb-2009 Fast Mayra A Start : 13-Feb-2009 End : 13-Feb-2009 Discontinued Comments:hip pain TRANSDERM-SCOP, 1.5MG (Transdermal Patch 72 Hour) apply 1 patch Patch 72HR change every 72 hrs, prn for 0 days Quantity: 10 {Patch} Refills: 0 Ordered:31-Dec-2013 Nikki Thompson LPN Start : 02-Jun-2013 End : 31-Dec-2013 Discontinued TRAZODONE HCL, 50MG (Oral Tablet) 1 Tablet qhs prn for 0 days Quantity: 30 {Tablet} Refills: 3 Ordered:06-Apr-2012 Fast Mayra RIOS Start : 06-Apr-2012 End : 06-Apr-2012 Discontinued [...] Completed Comments: Dr Jeffers Date Value Details 10-Nov-2017 Chest PA and Lateral Result: Comments: See Note; NOTES: [facility] Imaging Services [address] [place] [address] Chest PA and Lateral MR#: [id number] Acct: [id number] Name: PAMELA GUTIERREZ Rep #: [id number] : 1950 F 67 From: Dylan Aamdo MD PCP: Lilliana Mishra DO Status: REG CLI Study: Chest PA and Lateral Date of Exam: 11/10/17 Exam# [id number] Ordering Dr: Louise Darby SUPPLIER QUALITY ENGINEERTonyC STUDY: X- RAY CHEST REASON FOR EXAM: Female, 67 years old. Chronic cough for weeks since returning from [place]. TECHNIQUE: PA and lateral chest COMPARISON: None. FINDINGS: The lungs are clear and expanded. Normal cardiomediastinal silhouette, loren and pleural margins. No acute osseous or upper abdominal process. RAD/Chest PA and Lateral IMPRESSION: No acute cardiopulmonary process. Electronically Signed: Dylan Amado, at 17:07 EDT Tel , Service support , Fax CC: SUPPLIER QUALITY ENGINEER-C Louise Darby; Lilliana Mishra DO Assistant Operator: Signed 01-Sep-2017 Sacrum-Coccyx min 2 Views Result: Comments: See Note; NOTES: [facility] Imaging Services [address] [place] [address] Sacrum-Coccyx min 2 Views MR#: [id number] Acct: [id number] Name: PAMELA GUTIERREZ Rep #: [id number] : 1950 F 67 From: Mikael Alexander MD PCP: Lilliana Mishra DO Status: REG CLI Study: Sacrum-Coccyx min 2 Views Date of Exam: 09/01/17 Exam# [id number] Ordering Dr: Lilliana Mihsra DO UDY: X-RAY - SACRUM/COCCYX REASON FOR EXAM: Female, [...] Service support , CC: Lilliana Mishra DO Assistant Operator: Signed 01-Sep-2017 Wrist min 3 Views Result: Comments: See Note; NOTES: [facility] Imaging Services [address] [place] [address] Wrist min 3 Views MR#: [id number] Acct: [id number] Name: PAMELA GUTIERREZ Rep #: [id number] : 1950 F 67 From: Mikael Alexander MD PCP: Lilliana Mishra DO Status: REG CLI Study: Wrist min 3 Views Date of Exam: 09/01/17 Exam# [id number] Ordering Dr: Lilliana Mishra DO STUDY: X-RAY [...] Service support , CC: Lilliana Mishra DO Assistant Operator: Signed 01-Sep-2017 Wrist min 3 Views Result: Comments: See Note; NOTES: [facility] Imaging Services [address] [place] [address] Wrist min 3 Views MR#: [id number] Acct: [id number] Name: PAMELA GUTIERREZ Rep #: [id number] : 1950 F 67 From: Mikael Alexander MD PCP: Lilliana Mishra DO Status: REG CLI Study: Wrist min 3 Views Date of Exam: 09/01/17 Exam# [id number] Ordering Dr: Lilliana Mishra DO STUDY: X-RAY [...] Service support , CC: Lilliana Mishra DO Assistant Operator: Signed 08-Mar-2017 Urgent Care Visit Report Result: Comments: See Note; NOTES: [facility] [address] [place] [address] [address] [place] [address] OFFICE VISIT Date of Service: 03/08/17 MR#: [id number] Acct: [id number] Name: PAMELA GUTIERREZ p #: [id number] : 1950 Provider: ANISA Santamaria Age/Sex: 66/F Location: [facility] Status: Signed Intake Intake Visit Reasons: sinus Is patient in pain?: No Allergies No Known Allergies Allergy (Verified 03/08/17 13:51) Medications Escitalopram Oxalate [Lexapro] 5 mg PO DAILY 07/11/14 [History Confirmed 03/08/17] Levothyroxine [Synthroid] 25 mcg PO DAILY 07/11/14 [History Confirmed 7] Lisinopril [Zestril] 2.5 mg PO DAILY 07/11/14 [History Confirmed 03/08/17] Pantoprazole Sodium [Protonix] 40 mg PO DAILY 07/11/14 [History Confirmed 03/08/17] fszdzwzzykbycqm-iohorcyxwuirkjv-NK 2 mg- 30 mg-10 mg/5 mL syrup [...] person, oriented to place, oriented to time HENMT Head: normoceph alic Ears: external ears normal, [...] <Electronically signed by Alejo LANGE> Date Alejo Hina Hadley Signature: Date (if applicable) CC: 19-Jul-2016 Aorta Result: Comments: See Note; NOTES: [facility] Imaging Services [address] [place] [address] Verdana 4d Aorta MR#: [id number] Acct: [id number] Name: PAMELA GUTIERREZ Rep #: [id number] OB: 1950 F 65 From: Hi Reynoso MD PCP: Lilliana Mishra DO Status: REG CLI Study: Aorta Date of Exam: 07/19/16 Exam# [id number] Ordering Dr: Lilliana Mishra DO PROCEDURES: ULTRASOUND [...] Hi Reynoso MD at 9:24 EDT Tel [phone], Service support , CC: Lilliana Mishra DO Assistant Operator: Signed 18-Oct-2014 Wrist min 3 Views Result: Comments: See Note; NOTES: [facility] Imaging Services [address] [place] [address] Radiology Report MR#: [id number] Acct: [id number] Name: PAMELA GUTIERREZ Rep #: [id number] : 1950 F 64 From: Hi Reynoso MD PCP: Mayra Pérez DO Status: REG CLI Study: Wrist min 3 Views Date of Exam: 10/18/14 Exam# [id number] Ordering Dr: Amy Coppola STUDY: X-RAY - [...] Hi Reynoso MD at 16:02 EDT Tel [phone], Service support [phone], RAD/Wrist mi n 3 Views IMPRESSION: Normal x-ray examination of the wrist. Electronically Signed: Hi Reynoso MD at 16:02 EDT Tel [phone], Service support [phone], CC: Amy Pérez DO Assistant Operator: Signed 17-Jul-2014 Emergency Department Summary Result: Comments: See Note; NOTES: [facility] Medical Records Department [address] [place] [address] Emergency Department Summary MR#: [id number] Acct: [id number] Name: PAMEAL GUTIERREZ Rep #: [id number] : 1950 63 From: Ronald Payne MD PCP: Mayra Pérez DO Status: DEP ER DATE OF SERVICE: 07/11/2014 CHIEF COMPLAINT: Left wrist pain and knee pain. HISTORY OF [place] ESENT ILLNESS: The patient was in an [...] medicine here to go. She will use ydgj-dac-ccnqjnf ice, elevation may help. Follow up within [...] ht knee contusion. MD Neema Berry C: [facility] Ronald Langston MD T: [facility] JOB: [id number] 07/17/14 1528 <Electronically signed by Ronald Payne MD> Date Ronald Payne MD CC: Mayra Pérez DO; Ronald Langston MD; [facility] Date Dictated: 07/11/142249 Date Transcribed: 07/11/142249 Assistant Operator: Signed 11-Jul-2014 Discharge Instruction Result: Comments: See Note; NOTES: [facility] Medical Records Department [address] [place] [address] Discharge Instruction 07/11/142130 MR#: [id number] Acct: [id number] Name: PAMELA GUTIERREZ Rep #: [id number] : 1950 63 From: Ronald Payne MD [...] problems, contact your doctor. Call [facility] ) or report to the [facility] Emergency Room. Call 911 if necessary. 07/11/142131 <Electronically signed by Ronald Payne MD> Date Ronald Payne MD Cos igner Signature (If Indicated): Date CC: Mayra Pérez DO 11-Jul-2014 Wrist min 3 Views Result: Comments: See Note; NOTES: [facility] Imaging Services [address] [facility] [address] Radiology Report MR#: [id number] Acct: [id number] Name: PAMELA GUTIERREZ Rep #: [id number] : 1950 F 63 From: Hi Reynoso MD PCP: Mayra Pérez DO Status: [facility] ER Study: Wrist min 3 Views Date of Exam: 07/11/14 Exam# [id number] Ordering Dr: Ronald Payne MD STUDY: X-RAY [...] Hi Reynoso MD at 9:18 EDT Tel [phone], Service support [phone], RAD/Wrist min 3 Views IMPRESSION: I suspect a nondisplaced linear fracture involving the distal radial metaphysis with extension to the articular surface. Soft tissue swelling. Electronically Signed: Hi Reynoso MD at 9:18 EDT Tel [phone], Service support [phone], CC: Mayra Pérez DO; Ronald Payne MD Assistant Operator: Signed 22-Oct-2013 EKG (70888) Comments: ekg showed normal sinus rhythym, normal axis, no acute st/t wave changes biphasic twave otherwise no change Result: [MEASUREMENTS ANALYSIS] Date of Test: 10/22/2013 14:05:39; Heart Rate: 67; MT Interval: 154; QRS: 90; QT Interval: 388; Corrected QT Interval (QTc): 400; P Wave [place]: 31; QRS Wave [place]: -15; T Wave [place] : 1; Blood Pressure: 112/72 [ECG DIAGNOSTIC STATEMENTS] Date of Test: 10/22/2013 14:05:39; Summary: Sinus Rhythm - Diffuse nonspecific T-abnormality. 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 Status: Active Smoking Status Name Dates Details Never smoker Vital Signs Date Test Result Details 64-Wbi-068281:44 Temperature 97.3 f Comments: Method: Temporal Pulse [...] kg/m2 Body Surface Area Calculated 2.01 m2 64-Xnx-425770:12 Pulse 71 /min Comments: Pattern: Regular Respiration [...] kg/m2 Body Surface Area Calculated 2.02 m2 3-Fzv-112339:50 Pulse 76 /min Comments: Pattern: Regular Respiration [...] 0.00 cm Results Date Description Value Details 85-Fsq-017450:40 TSH (35931) Comments: PATIENT WAS FASTINGPERFORMED BY: [employer] [facility] [id number] BY: [facility]6370 [facility] [id number]; fu 09-01-17 KF TSH 0.340 {uIU/mL} (Abnormal) Range: 0.450-4.500 23-Pra-917033:40 CALCIFIDIOL (85733) VIT D Comments: PATIENT WAS FASTINGPERFORMED BY: [address] [place] [address] [id number] BY: Weele[employer]70 ZavalaChoreMonsterFormerly [facility] [id number] 25 Vitamin D, 25-Hydroxy 37.6 ng/mL (Normal) Range: 30.0-100.0 Comments: Vitamin D deficiency has been defined by the [place] ofMedicine and an Endocrine Society practice guideline as alevel of serum 25-OH vitamin D less than 20 ng/mL (1,2).The Endocrine Society went on to further define vitamin Dinsufficiency as a level between 21 and 29 ng/mL (2).1. IOM ([place] of Medicine). 2010. Dietary reference intakes for calcium and D. [place]: The National Academies Press.2. Fletcher MF, Edgardo COOL, Dina KAPLAN, et al. Evaluation, treatment, and prevention of vitamin D deficiency: an Endocrine Society clinical practice guideline. JCEM. 2010; 96(7):1911-30. 53-Uee-523668:40 LIPOPROTEIN, BLD, BY NMR Comments: PATIENT WAS FASTINGPERFORMED BY: BN [facility] Mejlmwxnnt2541 [facility] [id number] BY: CB [facility] Amjagg2905 [facility] [id number] (23864) LP-IR Score 71 (Abnormal) Comments: INSULIN RESISTANCE MARKER <--Insulin Sensitive Insulin Resistant--> Percentile in Reference PopulationInsulin Resistance ScoreLP-IR Score Low 25th 50th 75th High <27 27 45 63 >63LP-IR Score is inaccurate if patient is non-fasting. .The LP-IR score is a laboratory developed i [facility] that has beenassociated with insulin resistance and [...] were developed and their performance characteristicsdetermined by [employer]. These assays have not been cleared by [place] Food and Drug Administration. The clinical utility [...] 1600 - 2000 Very High > 2000 89-Tot-844574:40 METABOLIC PANEL, Comments: PATIENT WAS FASTINGPERFORMED BY: [facility] [address] [id number] BY: CB [facility] Ztuczk4058 [facility] [id number] COMPREHENSIVE (47004) ALT (SGPT) 16 [iU]/L (Normal) Range: 0-32 [...] 8-27 Glucose 85 mg/dL (Normal) Range: 65-99 22-Cph-724739:40 CBC with auto diff Comments: PATIENT WAS FASTINGPERFORMED BY: BN [facility] Lzhwlebcwd5017 [facility] [id number] BY: CB [facility] Zhtmwo0115 [facility] [id number] (57439) Immature Grans (Abs) 0.0 {x10E3/uL} (Normal) Range: [...] 3.77-5.28 WBC 4.8 {x10E3/uL} (Normal) Range: 3.4-10.8 :43 Microscopic Examination Comments: PATIENT WAS FASTINGPERFORMED BY: [facility] [employer] Mrkdsa7699 Zavala RoadDublin [place] [id number] Bacteria None seen (Normal) Mucus Threads Present (Normal) Epithelial Cells (non renal) 0-10 {/hpf} (Normal) Range: 0 - 10 RBC None seen {/hpf} (Normal) Range: 0 - 2 WBC 0-5 {/hpf} (Normal) Range: 0 - 5 :43 CALCIFEDIOL (72437) Comments: PATIENT WAS FASTINGPERFORMED BY: [employer] Khmgjd2249 [address] SUNDAYTOZblin [place] [id number] Vitamin D, 25-Hydroxy 68.6 ng/mL (Normal) Range: 30.0-100.0 Comments: Vitamin D deficiency has been defined by the [place] ofMedicine and an Endocrine Society practice guideline as alevel of serum 25-OH vitamin D less than 20 ng/mL (1,2).The Endocrine Society went on to further define vitamin Dinsufficiency as a level between 21 and 29 ng/mL (2).1. IOM ([place] of Medicine). 2010. Dietary reference intakes for calcium and D. [place]: The National Academies Press.2. Fletcher MF, Edgardo [place], Dina KAPLAN, et al. Evaluation, treatment, and prevention of vitamin D deficiency: an Endocrine Society clinical practice guideline. JCEM. 2010; 96(7):1911-30. :43 TSH (40910) Comments: PATIENT WAS FASTINGPERFORMED BY: CB [facility] Fnyxcd2598 Zavala RoadDublin [place] [id number] TSH 4.800 {uIU/mL} (Abnormal) Range: 0.450-4.500 :43 URINALYSIS, W/ MICRO (97062) Comments: PATIENT WAS FASTINGPERFORMED BY: [facility] HouseSt. [facility] Medical CenterOtxnbu6613 [facility] [id number] Microscopic Examination See below: (Normal) Comments: Microscopic was indicated and was performed. Nitrite, Urine Negative (Normal) Urobilinogen,Semi-Qn 0.2 mg/dL (Normal) Range: 0.2-1.0 Bilirubin Negative (Normal) Occult Blood 1+ (Abnormal) Ketones Negative (Normal) Glucose Negative (Normal) Protein Negative (Normal) WBC Esterase Trace (Abnormal) Appearance Clear (Normal) Urine-Color Yellow (Normal) pH 6.0 (Normal) Range: 5.0-7.5 Specific [place] 1.013 (Normal) Range: 1.005-1.030 :43 MICROALBUMIN: CREATININE RATIO Comments: PATIENT WAS FASTINGPERFORMED BY: EK[facility] CorporationMclaren Lape[facility] Region6370 [facility] [id number] (45151) AND (75305) Microalb/Creat Ratio <4.4 {mg/g_creat} (Normal) Range: 0.0-30.0 Microalbumin, Urine <3.0 ug/mL (Normal) Creatinine, Urine 67.5 mg/dL (Normal) :43 METABOLIC PANEL, COMPREHENSIVE Comments: PATIENT WAS FASTINGPERFORMED BY: EK[facility] CorporationMclaren L[facility] Region6370 [facility] [id number] (02627) ALT (SGPT) 21 [iU]/L (Normal) Range: 0-32 [...] Glucose, Serum 87 mg/dL (Normal) Range: 65-99 75-Qie-030938:43 LIPID PANEL (63298) Comments: PATIENT WAS FASTINGPERFORMED BY: [facility]Nov[facility] [id number] LDL/HDL Ratio 2.1 {ratio_units} (Normal) Range: 0.0-3.2 Comments: LDL/HDL Ratio Men Women 1/2 Avg.Risk 1.0 1.5 Av g.Risk 3.6 3.2 2X Avg.Risk 6.2 5.0 3X Avg.Risk 8.0 6.1 LDL Cholesterol Calc 81 mg/dL (Normal) Range: 0-99 VLDL Cholesterol Jorge 20 mg/dL (Normal) Range: 5-40 HDL Cholesterol 38 mg/dL (Abnormal) Triglycerides 102 mg/dL (Normal) Range: 0-149 Cholesterol, Total 139 mg/dL (Normal) Range: 100-199 37-Eol-200503:43 CBC W/AUTO DIFF WBC (19426) Comments: PATIENT WAS FASTINGPERFORMED BY: [facility]6370 [facility].comFormerly [facility] [id number] Immature Grans (Abs) 0.0 {x10E3/uL} (Normal) Range: [...] {x10E3/uL} (Normal) Range: 3.4-10.8 :33 C-REACTIVE PROTEIN (72768) Comments: PATIENT NOT FASTINGPERFORMED BY: [facility] Mxbtzf4206 [facility] [id number] C-Reactive Protein, Quant 0.7 mg/L (Normal) Range: 0.0-4.9 :33 SED RATE ERYTHROCYTE (55561) Comments: PATIENT NOT FASTINGPERFORMED BY: [facility] Vehlsz4897 [facility] [id number] Sedimentation Rate-Westergren 3 mm/h (Normal) Range: 0-40 :33 CBC, PLATELETS & AUT DIFF Comments: PATIENT NOT FASTINGPERFORMED BY: [facility] Ufqfle0101 [facility] [id number] Information: [id number],[id number] (25823) Immature Grans (Abs) 0.0 {x10E3/uL} (Normal) Range: [...] 3.77-5.28 WBC 5.6 {x10E3/uL} (Normal) Range: 3.4-10.8 9-Mdu-427995:33 METABOLIC PANEL, COMPREHENSIVE Comments: PATIENT NOT FASTINGPERFORMED BY: LabCoSt. Joseph's Regional Medical CenterMvgrvj0261 [facility] [id number] (94371) ALT (SGPT) 18 [iU]/L (Normal) Range: 0-32 [...] mg/dL (Normal) Range: 65-99 :26 ANN CULTURE-STOOL (72219) Comments: PATIENT NOT FASTINGPERFORMED BY: [facility]naNov[facility] [id number] Information: SRC:ST SRC:ST E coli Shiga Toxin EIA Negative (Normal) Result 1 NCI (Normal) Comments: No Campylobacter species isolated. Campylobacter Culture Final report (Normal) Result 1 NSS (Normal) Comments: No Salmonella or Shigella recovered. Salmonella/Shigella Screen Final report (Normal) :26 Clostridium difficile Toxin Comments: PATIENT NOT FASTINGPERFORMED BY: [facility]naNov[facility] [id number] A+B, EIA (88346) C difficile Toxins A+B, EIA Negative (Normal) :26 LEUKOCYTE COUNT, FECAL (97576) Comments: PATIENT NOT FASTINGPERFORMED BY: [employer] Nkzebv6887KwiClickNovant Health [facility] [id number] Result 1 NWBC (Normal) Comments: No white blood cells seen. White Blood Cells (WBC), Final report (Normal) Stool :26 OVA & PARASITE DIR SMEAR Comments: PATIENT NOT FASTINGPERFORMED BY: [facility] Nnznyf8458 [facility] [id number] (29752) Result 1 NOCP (Normal) Comments: No ova, cysts, or parasites seen. Ova + Parasite Exam Final report (Normal) Comments: These results were obtained using wet preparation(s) and trichromestained smear. This test does not include testing for Cryptosporidiumparvum, Cyclospora, or Microsporidia. :44 TSH (02351) Comments: PATIENT WAS FASTINGPERFORMED BY: [facility] CorporationI[facility] Tsxaxx9254 [facility] [id number] TSH 1.290 {uIU/mL} (Normal) Range: 0.450-4.500 :44 CBC W/AUTO DIFF WBC (10229) Comments: PATIENT WAS FASTINGPERFORMED BY: EK[facility] CorporationMclaren [facility] Region6370 [facility] [id number] Immature Grans (Abs) 0.0 {x10E3/uL} (Normal) Range: [...] 3.77-5.28 WBC 5.6 {x10E3/uL} (Normal) Range: 3.4-10.8 46-Uqh-549860:44 METABOLIC PANEL, COMPREHENSIVE Comments: PATIENT WAS FASTINGPERFORMED BY: LabCoSt. Joseph's Regional Medical CenterDapipq7410 [facility] [id number] (18277) ALT (SGPT) 10 [iU]/L (Normal) Range: 0-32 [...] Glucose, Serum 91 mg/dL (Normal) Range: 65-99 55-Kdv-970351:44 LIPID PANEL (75691) Comments: PATIENT WAS FASTINGPERFORMED BY: [facility] Tcaovi3846 [facility] [id number]; non-emergent till apt tomorrow LDL/HDL Ratio 3.3 [...] Cholesterol, Total 246 mg/dL (Abnormal) Range: 100-199 :59 TSH (89933) Comments: PATIENT WAS FASTINGPERFORMED BY: [facility] HouseSt. Joseph[facility] Medical CenterJnsoxh7220 [facility] [id number] TSH 0.081 {uIU/mL} (Abnormal) Range: 0.450-4.500 :59 Vitamin D Hydroxy (23801) Comments: PATIENT WAS FASTINGPERFORMED BY: LabI[facility] Tjyioz0756 [facility] [id number] Vitamin D, 25-Hydroxy 42.0 ng/mL (Normal) Range: 30.0-100.0 Comments: Vitamin D deficiency has been defined by the [place] of[place]icine and an Endocrine Society practice guideline as alevel of serum 25-OH vitamin D less than 20 ng/mL (1,2).The Endocrine Society went on to further define vitamin Dinsufficiency as a level between 21 and 29 ng/mL (2).1. IOM ([place] of Medicine). 2010. Dietary reference intakes for calcium and D. [place]: The National Academies Press.2. Fletcher MF, Edgardo NC, Dina KAPLAN, et al. Evaluation, treatment, and prevention of vitamin D deficiency: an Endocrine Society clinical practice guideline. JCEM. 2010; 96(7):1911-30. 39-Wog-70251:59 LIPID PANEL (22512) Comments: PATIENT WAS FASTINGPERFORMED BY: [facility] Flbsua7524 [facility] [id number] Information: 000680,C61944 LDL/HDL Ratio 2.8 {ratio_units} (Normal) Range: 0.0-3.2 [...] Cholesterol, Total 229 mg/dL (Abnormal) Range: 100-199 94-Fhm-910109:56 Allergen, Rast Food Profile Comments: Test performed at:[facility] Z[address]kszfsq[address] [place], [place] [id number] RAST COMMENT Comment (Normal) Comments: Levels of [...] this mix are: Blue mussel Fish [place] Shrimp Tuna EGG, WHOLE <0.10 kU/L (Normal) CHOCOLATE <0.10 kU/L (Normal) Comments: Performed at: [address] [id number] Director: Vaughn Garsia MD, Phone: [phone] BEEF <0.10 kU/L (Normal) PORK <0.10 kU/L (Normal) SOYBEAN <0.10 kU/L (Normal) PEANUT <0.10 kU/L (Normal) CORN <0.10 kU/L (Normal) WHEAT <0.10 kU/L (Normal) MILK (COW) <0.10 kU/L (Normal) 99-Unl-74677:38 URINE ANN CULTURE-FILOMENA COL Comments: PATIENT NOT FASTINGPERFORMED BY: [facility] [address]xmlsr[address]Formerly [facility] [id number] Information: SRC:UR [id number] COUNT (36794) Antimicrobial MIHEAD (Normal) Comments: S = Susceptible; [...] mL (Abnormal) Urine Final report Culture,Comprehensive (Abnormal) 42-Axw-783181:11 Urinalysis, Office (28237) UA - LEUKOCYTE ESTERASE Large (Normal) UA - NITRITE Negative (Normal) URINE UROBILINGN FILOMENA TIMED Normal mg/dL (Normal) UA - PROTEIN Negative mg/dL (Normal) UA - PH 5.0 (Normal) UA - BLOOD Non Hemolyzed Moderate (Normal) UA - SPECIFIC GRAVITY 1.015 (Normal) UA - KETONES Negative mg/dL (Normal) UA - BILIRUBIN Negative (Normal) UA - GLUCOSE Negative (Normal) 0-Jbp-686666:33 Comprehensive Metabolic Profil Comments: Test performed at:[facility] [address] [place], [place] [id number] GAP 4 (Abnormal) Range: 5-15 CO2 31.0 [...] 7-18 GLU 89 mg/dL (Normal) Range: 70-110 8-Fru-994834:33 Lipid Profile Comments: Test performed at:[facility] [address] [place], [place] [address] VLDL 31 mg/dL (Normal) Range: 5-40 LDL [...] 200-240 mg/dL Borderline >240 mg/dL High Risk 9-Irv-858945:33 Thyroid Stim Hormone (TSH) Comments: Test performed at:[facility] [address] [place] [address] TSH 3.03 {uIU/mL} (Normal) Range: 0.358-3.74 :57 TSH (13739) Comments: PATIENT WAS FASTINGPERFORMED BY: [facility] Icnhrg8576 [facility] [id number] TSH 7.420 {uIU/mL} (Abnormal) Range: 0.450-4.500 :57 METABOLIC PANEL, Comments: PATIENT WAS FASTINGPERFORMED BY: [facility] Omejdj7360 [facility] [id number] Information: [id number] COMPREHENSIVE (18032) ALT (SGPT) 10 [iU]/L (Normal) Range: 0-32 [...] Glucose, Serum 84 mg/dL (Normal) Range: 65-99 83-Csu-35293:57 LIPID PANEL (08351) Comments: PATIENT WAS FASTINGPERFORMED BY: [facility] CenterCjjlxi5[address] Rodriguez[place] [place] [id number] LDL/HDL Ratio 4.1 {ratio_units} (Abnormal) Range: 0.0-3.2 [...] Cholesterol, Total 280 mg/dL (Abnormal) Range: 100-199 59-Vpd-196833:09 CMP GAP 7 (Normal) Range: 5-15 CO2 [...] 7-18 GLU 85 mg/dL (Normal) Range: 70-110 28-Alj-647716:09 LIPID VLDL 39 mg/dL (Normal) Range: 5-40 [...] CHOL 260 mg/dL (Abnormal) Comments: <200 mg/dL Clacwwjau956-969 mg/dL Borderline>240 mg/dL High Risk 06-Huy-319830:09 VITD 49.6 mg/mL (Normal) Comments: Vitamin D 25(OH) Status RangeDeficiency <20 ng/mL (50nmol/L)Insuffciency 20 - 30 ng/mL (50 - 75 nmol/L)Sufficiency 30 - 100 ng/mL (75 - 250 nmol/L)Toxicity >100 ng/mL (>250 nmol/L) 30-Zaf-722409:14 CMP GAP 5 (Normal) Range: 5-15 CO2 [...] 7-18 GLU 90 mg/dL (Normal) Range: 70-110 36-Svw-333067:14 LIPID VLDL 36 mg/dL (Normal) Range: 5-40 [...] CHOL 257 mg/dL (Abnormal) Comments: <200 mg/dL Wtfnydwhh849-370 mg/dL Borderline>240 mg/dL High Risk 70-Jkn-611648:14 TSH 2.38 {uIU/mL} (Normal) Range: 0.358-3.74 16-Uno-643826:14 VITD 25.6 mg/mL (Normal) Comments: Vitamin D 25(OH) Status RangeDeficiency <20 ng/mL (50nmol/L)Insuffciency 20 - 30 ng/mL (50 - 75 nmol/L)Sufficiency 30 - 100 ng/mL (75 - 250 nmol/L)Toxicity >100 ng/mL (>250 nmol/L) 75-Dei-480213:56 Urinalysis, Office (06058) UA - BILIRUBIN Negative (Normal) UA - BLOOD Non Hemolyzed Moderate (Normal) UA - GLUCOSE Negative (Normal) UA - KETONES Negative mg/dL (Normal) UA - LEUKOCYTE ESTERASE Moderate (Normal) UA - NITRITE Negative (Normal) UA - PH 5.0 (Normal) Comments: 5.5 UA - PROTEIN Negative mg/dL (Normal) UA - SPECIFIC GRAVITY 1.010 (Normal) URINE UROBILINGN FILOMENA TIMED Normal mg/dL (Normal) :57 CMP GAP 6 (Normal) Range: 5-15 CO2 [...] CHOL 257 mg/dL (Abnormal) Comments: <200 mg/dL Ilprbkhrs738-538 mg/dL Borderline>240 mg/dL High Risk :57 TSH 3.02 {uIU/mL} (Normal) Range: 0.358-3.74 :51 LIPID PANEL (30224) Comments: PATIENT WAS FASTINGPERFORMED BY: [facility] CenterQcucxb5186 [facility] [id number] LDL/HDL Ratio 2.9 {ratio_units} (Normal) Range: 0.0-3.2 [...] METABOLIC PANEL, Comments: PATIENT WAS FASTINGPERFORMED BY: [facility] Ybirff5626 [facility] [id number] Information: [id number] COMPREHENSIVE (21992) ALT (SGPT) 11 [iU]/L (Normal) Range: 0-32 [...] Glucose, Serum 85 mg/dL (Normal) Range: 65-99 01-Yrm-408330:13 HIP, MIN 2 VIEWS Radiology Report See [...] Reynoso M.D.December 03, 2011 at 12:32:11 PM [id number] Signed GP/GP If you are the referring physician and would like to consult with theradiologist who provided this interpretation, please contact Aishwarya Rendon at [phone]. If this radiologist is unavailable, youwill be directed to another radiologist t o assist. If you are a patient with a question regarding this report, pleasecontactyour referring physician directly. Professional Interpretation Provided By: [email or web address], Phone ,Fax These documents contain legally protected [...] 1240 Sign b y: Hi Reynoso MD 64-Cmj-251076:13 HIP, MIN 2 VIEWS Radiology Report See [...] Nguyen M.D.December 03, 2011 at 12:33:05 PM [id number] Signed GP/GP If you are the referring physician and would like to consult with theradiologist who provided this interpre tation, please contact Aishwarya Rendon at [phone]. If this radiologist is unavailable, youwill be directed to another radiologist to assist. If you are a patient with a question regarding t his report, pleasecontactyour referring physician directly. Professional Interpretation Provided By: Agrar33, Phone , These documents contain legally protected [...] return or destructionofthese documents. Dicta cristiane on 12/02/11 1711 by Gely Reynoso MDranscribed on 12/03/111918 by ITS IMPORTSign by Hi Reynoso MD on 12/03/111919 Sign by: Hi Reynoso MD 20-Agl-83833:48 METABOLIC PANEL, Comments: PATIENT WAS FASTINGPERFORMED BY: [facility] [id number] [facility] [id number] Information: [id number] COMPREHENSIVE (16409) ALT (SGPT) 10 [iU]/L (Normal) Range: 0-32 [...] 80 mg/dL (Normal) Range: 65-99 :48 TSH (07800) Comments: PATIENT WAS FASTINGPERFORMED BY: [facility] CenterAuiwoa3945 [facility] [id number] TSH 2.860 {uIU/mL} (Normal) Range: 0.450-4.500 :48 LIPID PANEL (57649) Comments: PATIENT WAS FASTINGPERFORMED BY: [facility]St[facility] CenterAhpswg5380 [facility] [id number] LDL/HDL Ratio 2.7 {ratio_units} (Normal) Range: 0.0-3.2 LDL Cholesterol Calc 161 mg/dL (Abnormal) Range: 0-99 VLDL Cholesterol Jorge 35 mg/dL (Normal) Range: 5-40 HDL Cholesterol 60 mg/dL (Normal) Comments: According to ATP-III Guidelines, HDL-C >59 mg/dL is considered anegative risk factor for CHD. Triglycerides 174 mg/dL (Abnormal) Range: 0-149 Cholesterol, Total 256 mg/dL (Abnormal) Range: 100-199 :08 [facility] Culture exhibits no growth. (Normal) :08 LIPID [...] 3.4-5.0 TPROT 7.1 g/dL (Normal) Range: 6.4-8.2 96-Cxp-66912:43 [facility] See Note {CFU/mL} (Normal) Comments: COLONY COUNT 1000- 10,000 ORGANISM 1: MIXED GRAM POSITIVE ORGANISMS 92-Aag-230831:33 Urinalysis, Office (29575) UA - BILIRUBIN Negative (Normal) UA - [...] 7-18 GLU 82 mg/dL (Normal) Range: 70-110 9-Jrl-052062:59 COMPLETE UA MUCUS, URINE 0 SEEN {/hpf} [...] NEGATIVE CLARITY CLEAR (Normal) COLOR YELLOW (Normal) 5-Rjx-220130:59 LIPID VLDL 39 mg/dL (Normal) Range: 5-40 [...] 200-240 mg/dL Borderline >240 mg/dL High Risk 4-Ryf-259001:59 TSH 3.19 {uIU/mL} (Normal) Range: 0.358-3.74 :15 LIPID VLDL 46 mg/dL (Abnormal) Range: 5-40 [...] Very High > or = 500 mg/dL :17 TSH 3.46 {uIU/mL} (Normal) Range: 0.358-3.74 :37 CULTURE, URINE URINE CULTURE See Note {CFU/mL} Comments: COLONY COUNT 1000- 10,000 ORGANISM 1: MIXED GRAM POSITIVE ORGANISMS (Normal) 59-Muq-521639:37 TSH 0.02 {uIU/mL} (Abnormal) Range: 0.358-3.74 :01 CULTURE, URINE URINE CULTURE See Note (Normal) Comments: Culture exhibits no growth. 69-Vzo-956241:40 L/S SPINE,MIN 4 VIEWS (MT) Radiology Report See Note (Normal) Comments: Exam Number: [id number] LUMBOSACRAL SPINE AP, lateral and oblique views [...] abnormality is seen. Reported By: HI REYNOSO 77-Nkj-933810:14 Urinalysis, Office (51827) UA - LEUKOCYTE ESTERASE Small (Normal) UA - NITRITE Negative (Normal) URINE UROBILINGN FILOMENA TIMED Normal mg/dL (Normal) UA - PROTEIN Negative mg/dL (Normal) UA - PH 7.0 (Normal) UA - BLOOD Non Hemolyzed Trace (Normal) UA - SPECIFIC GRAVITY 1.010 (Normal) UA - KETONES Negative mg/dL (Normal) UA - BILIRUBIN Negative (Normal) UA - GLUCOSE Negative (Normal) 75-Jfr-15956:55 COMP METABOLIC CL 100 mmol/L (Normal) Range: [...] CHOL 202 mg/dL (Abnormal) Comments: <200 mg/dL Uohiatarq290-071 mg/dL Borderline>240 mg/dL High Risk TRIG 183 mg/dL (Normal) Comments: Serum Triglycerides Reference IntervalNormal <150 mg/dLBorderline high 150 - 199 mg/dLHigh 200 - 499 mg/ dLVery High > or = 500 mg/dL :55 TSH 0.03 {uIU/mL} (Abnormal) Range: 0.358-3.74 :14 CBCD,SMEAR DIFF BAND 3 % (Normal) Range: [...] 4.2-5.4 WBC 4.0 K/mm3 (Abnormal) Range: 4.4-11.0 91-Tbu-535335:14 COMP METABOLIC ALK P 58 U/L (Normal) [...] {IU/mL} (Abnormal) Range: 0-34 Comments: Performed At: [address] [id number] 96-Msh-994159:14 T4 FREE DIRECT 0.7 ng/dL (Abnormal) Range: [...] 47-70 WBC 6.2 K/mm3 (Normal) Range: 4.4-11.0 6-Llq-289731:03 COMP METABOLIC CO2 31.8 mmol/L (Normal) Range: [...] (Normal) Range: 70-110 Comments: RESULTS CALLED TO 09/22/07 JOSELIN BRADFORD AMENDED REPORT 09/22/07 1702 GLU previously reported as: 85 mg/dL K [...] 0.2 EU/dl (Normal) Range: 0.2 - 1.0 :03 TSH 6.01 {uIU/mL} (Abnormal) Range: 0.34-4.82 :30 HIP, MIN 2 VIEWS (PORTABLE) Radiology Report See Note (Normal) Comments: Exam Number: [id number] FIVE VIEW LUMBAR SPINE AP, lateral, both [...] degenerative changes. Reported By: CATHIE SALCEDO M.D. 1-Dyz-878870:30 L/S SPINE,MIN 4 VIEWS Radiology Report See Note (Normal) Comments: Exam Number: [id number] FIVE VIEW LUMBAR SPINE AP, lateral, both [...] degenerative changes. Reported By: CATHIE SALCEDO M.D. 36-Lkh-242991:24 CBCD,SMEAR DIFF BASOPHIL 1 % (Normal) Range: [...] 47-70 WBC 4.2 K/mm3 (Abnormal) Range: 4.4-11.0 :24 COMP METABOLIC A/G 1.3 {RATIO} (Normal) Range: [...] T PROT 7.2 g/dL (Normal) Range: 6.4-8.2 20-Gsb-396685:24 D BILI 0.09 mg/dL (Normal) Range: 0.00-0.30 [...] mg/dL VLDL 19 mg/dL (Normal) Range: 5-40 52-Hjs-551047:24 ROUTINE UA BILIRUBIN URINE SeeNote (Normal) Comments: [...] 0.2 EU/dl (Normal) Range: 0.2 - 1.0 82-Xgv-798929:24 TSH 4.71 {uIU/mL} (Normal) Range: 0.34-4.82 02-Rcj-398682:16 Urinalysis, Office (20080) UA - BLOOD Non Hemolyzed Trace (Normal) UA - GLUCOSE Negative (Normal) UA - LEUKOCYTE ESTERASE Trace (Normal) UA - NITRITE Negative (Normal) UA - PH 5.0 (Normal) UA - PROTEIN Negative mg/dL (Normal) UA - SPECIFIC GRAVITY 1.005 (Normal) URINE UROBILINGN FILOMENA TIMED Normal mg/dL (Normal) 46-Zta-175048:15 COMPLETE UA BACTERIA RARE {/hpf} (Normal) BILIRUBIN [...] (Normal) Range: 0-5 Comments: Result: 0-5 SEEN 69-Mtc-243065:15 CULTURE, URINE URINE CULTURE See Note {CFU/mL} (Normal) Comments: COLONY COUNT 1000-10,000 ORGANISM 1: MIXED GRAM POS & NEG ORGANISMS 36-Lap-764392:35 BMP Comments: COMMENTS: BLOSSOM,OR 06/04/06Precautions*: NOT APPLICABLE BUN 18 mg/dL (Normal) Range: 7-18 BUN/CRE 20.0 {RATIO} (Normal) Range: 10-20 CA 8.9 mg/dL (Normal) Range: 8.5-10.1 CL 103 mmol/L (Normal) Range: 98-107 CO2 30.7 mmol/L (Abnormal) Range: 22.0-29.0 CREAT,SERUM 0.9 mg/dL (Normal) Range: 0.6-1.0 GAP 4 (Abnormal) Range: 5-15 GLU 87 mg/dL (Normal) Range: 70-110 K 4.0 mmol/L (Normal) Range: 3.5-5.1 NA 138 mmol/L (Normal) Range: 136-145 :35 CBC Comments: COMMENTS: BLOSSOM,OR 06/04/06Precautions*: NOT APPLICABLE HCT 36.9 % (Abnormal) Range: 37-47 HGB 12.9 g/dL (Normal) Range: 12.0-16.0 MCH 33.4 pg (Abnormal) Range: 27.0-32.0 MCHC 34.8 g/dL (Normal) Range: 32-36 MCV 95.8 fL (Normal) Range: 81-99 PLT 250 K/mm3 (Normal) Range: 150-450 RBC 3.85 {M/mm3} (Abnormal) Range: 4.2-5.4 RDW 13.9 % (Normal) Range: 11.6-14.6 WBC 5.3 K/mm3 (Normal) Range: 4.4-11.0 69-Edz-333664:18 Urinalysis, Office (63633) UA - BILIRUBIN Negative (Normal) UA - BLOOD Non Hemolyzed Trace (Normal) UA - GLUCOSE Negative (Normal) UA - KETONES Negative mg/dL (Normal) UA - LEUKOCYTE ESTERASE Negative (Normal) UA - NITRITE Negative (Normal) UA - PH 5.0 (Normal) UA - PROTEIN Negative mg/dL (Normal) UA - SPECIFIC GRAVITY 1.025 (Normal) URINE UROBILINGN FILOMENA TIMED Normal mg/dL (Normal) 18-Hdh-910207:02 Urinalysis, Office (89752) UA - BILIRUBIN Negative (Normal) UA - BLOOD Non Hemolyzed Trace (Normal) UA - GLUCOSE Negative (Normal) UA - KETONES Negative mg/dL (Normal) UA - LEUKOCYTE ESTERASE Negative (Normal) UA - NITRITE Negative (Normal) UA - PH 5.0 (Normal) UA - PROTEIN Negative mg/dL (Normal) UA - SPECIFIC GRAVITY 1.010 (Normal) URINE UROBILINGN FILOMENA TIMED 2 mg/dL (Normal) 69-Ijj-287454:46 Urinalysis, Office (44938) UA - BILIRUBIN Negative (Normal) UA - BLOOD Hemolyzed Large (Normal) UA - KETONES Negative mg/dL (Normal) UA - LEUKOCYTE ESTERASE Negative (Normal) UA - NITRITE Negative (Normal) UA - PH 5.0 (Normal) UA - PROTEIN Negative mg/dL (Normal) UA - SPECIFIC GRAVITY 1.015 (Normal) URINE UROBILINGN FILOMENA TIMED Normal mg/dL (Normal) 87-Vig-05972:00 CULTURE, URINE Comments: The date and/or time [...] $$$ >=256 R TRIMETHOPRIM/SULFAMETHOXAZ $$ <=10 S 3-Xbb-999624:05 CBCD,SMEAR DIFF BAND 1 % (Normal) Range: [...] T PROT 6.5 g/dL (Normal) Range: 6.4-8.2 2-Jsf-921130:05 PFLIP CHOL 190 mg/dL (Normal) Comments: <200 [...] mg/dL VLDL 9 mg/dL (Normal) Range: 5-40 7-Oua-155128:05 ROUTINE UA BILIRUBIN URINE SeeNote (Normal) Comments: [...] 0.2 EU/dl (Normal) Range: 0.2 - 1.0 2-Kkc-957752:05 TSH 3.47 {uIU/mL} (Normal) Range: 0.34-4.82 Plan of Care Name Dates Details Instructions Epigastric pain : Continue Current Prescription(s) Indication: [...] Prescription(s) Indication: Hypertension Planned Observations Troponin I (68645)Indication: Chest pain, atypical On: 26-Fat-953014:06 Request CPK MB FRACTION (86964)Indication: Chest pain, atypical On: :06 Request CREATINE KINASE TOTAL (67782)Indication: Chest pain, atypical On: 27-Wpl-331493:06 Request METABOLIC PANEL, COMPREHENSIVE (10764)Indication: Chest pain, atypical On: 98-Mjz-199160:05 Request CBC W/AUTO DIFF WBC (70319)Indication: Chest pain, atypical On: 95-Tlq-392258:05 Request TSH (38184)Indication: Abnormal TSH On: 98-Cly-206299:44 Request T4, FREE (THYROXINE) (78622)Indication: Abnormal TSH On: 69-Fqo-136013:44 Request T3, FREE (TRIDOTHYRONINE) (86881)Indication: Abnormal TSH On: 03-Jjr-782704:44 Request TSH (THYROID STIMULATING HORMONE) (15829)Indication: Acquired hypothyroidism On: 19-Fab-620925:45 Request OCCULT BLOOD FECES SCREEN (00519)Indication: Diarrhea, unspecified type On: 6-Pun-295185:04 Request Lipid Panel (38346)Indication: Mixed hyperlipidemia On: 36-Wgl-041996:47 Request Comments: september 2016 HEPATIC FUNCTION PANEL (25050)Indication: Mixed hyperlipidemia On: 97-Ecc-784453:12 Request TSH (31826)Indication: Acquired hypothyroidism On: 62-Enf-023486:08 Request TSH (THYROID STIMULATING HORMONE) (97083)Indication: Acquired hypothyroidism On: 65-Lmr-534910:25 Request Vitamin D Hydroxy (59745)Indication: VITAMIN D DEFICIENCY (Renamed from Avitaminosis D) On: :23 Request METABOLIC PANEL, COMPREHENSIVE (56049)Indication: Hypertension On: 55-Sef-650936:23 Request LIPID PANEL (43544)Indication: Mixed hyperlipidemia On: :23 Request Metabolic Panel, Comprehensive (15442)Indication: Hypertension On: : Request Lipid Panel (65703)Indication: Mixed hyperlipidemia On: : Request TSH (15502)Indication: Acquired hypothyroidism On: : Request CALCIFEDIOL (07779)Indication: Acquired hypothyroidism On: 74-Zfm-587303: Request METABOLIC PANEL, COMPREHENSIVE (66910)Indication: Hypertension On: 04-Amu-883511:32 Request TSH (88999)Indication: Acquired hypothyroidism On: :31 Request LIPID PANEL (37082)Indication: Mixed hyperlipidemia On: 02-Pwm-676815:31 Request HEPATIC FUNCTION PANEL (53681)Indication: Mixed hyperlipidemia On: 99-Hri-863949:09 Request LIPID PANEL (53697)Indication: Mixed hyperlipidemia On: 02-Rdn-634118:09 Request URINE ANN CULTURE-FILOMENA COL COUNT (64354)Indication: Low back pain On: 68-Jhl-089910:33 Request CBC WITH MANUAL DIFF (71243)Indication: Hypertension On: 88-Bhz-904570:06 Request METABOLIC PANEL, COMPREHENSIVE (46826)Indication: Hypertension On: 81-Clv-668819:06 Request TSH (64198)Indication: Acquired hypothyroidism On: 54-Gvk-564308:06 Request LIPID PANEL (21413)Indication: Mixed hyperlipidemia On: 55-Dkf-825555:06 Request URINALYSIS, W/ MICRO (01897)Indication: Hypertension On: 37-Eok-917402:12 Request TSH (51244)Indication: Acquired hypothyroidism On: 04-Qzt-754258:12 Request METABOLIC PANEL, COMPREHENSIVE (26179)Indication: Hypertension On: 21-Ujb-125334:12 Request LIPID PANEL (03768)Indication: Mixed hyperlipidemia On: 34-Doo-958295:12 Request HEPATIC FUNCTION PANEL (58614)Indication: Mixed hyperlipidemia On: 3-Zzw-108899:03 Request LIPID PANEL (67871)Indication: Mixed hyperlipidemia On: 0-Xpt-041560:03 Request LIPID PANEL (13753)Indication: Mixed hyperlipidemia On: 3-Blv-430602:50 Request TSH (74630)Indication: Acquired hypothyroidism On: 6-Wny-269782:49 Request METABOLIC PANEL, COMPREHENSIVE (07281)Indication: Hypertension, benign On: 0-Xip-902088:49 Request URINE ANN CULTURE (FILOMENA COL COUNT) (41313)Indication: Pain in unspecified hip On: 53-Lbw-988458:16 Request TSH (66086)Indication: Acquired hypothyroidism On: 47-Pcg-834067:51 Request METABOLIC PANEL, COMPREHENSIVE (89796)Indication: Hypertension, benign On: 3-Fsf-505865:58 Request HEPATIC FUNCTION PANEL (19732)Indication: Mixed hyperlipidemia On: 1-Anj-341571:58 Request LIPID PANEL (95903)Indication: Mixed hyperlipidemia On: 1-Uhb-279874:58 Request TSH (41781)Indication: Acquired hypothyroidism On: 9-Lay-354910:54 Request HEPATIC FUNCTION PANEL (47321)Indication: Mixed hyperlipidemia On: 46-Pof-519979:40 Request LIPID PANEL (89796)Indication: Mixed hyperlipidemia On: 41-Uia-080740:40 Request Anti-TPO Antibody (54914)Indication: Abnormal TSH On: 96-Vjy-654408:31 Request T4, TOTAL (56301)Indication: Abnormal TSH On: 77-Qwl-919664:30 Request T4, FREE (74820)Indication: Abnormal TSH On: 22-Ybt-726220:30 Request TSH (44489)Indication: Abnormal TSH On: 65-Cqt-908694:30 Request CBC WITH MANUAL DIFF (48837)Indication: Hypertension, benign On: 68-Hau-912557:29 Request METABOLIC PANEL, COMPREHENSIVE (66793)Indication: Hypertension, benign On: 13-Bzt-180476:28 Request Lipase (35428)Indication: Nausea On: 7-Cja-055572:02 Request Amylase (79341)Indication: Nausea On: 6-Zlo-580813:02 Request URINALYSIS W/O MICRO (83514)Indication: Dizziness and giddiness On: 1-Gcd-803265:58 Request TSH (90578)Indication: Dizziness and giddiness On: 9-Jka-813245:58 Request METABOLIC PANEL, COMPREHENSIVE (72435)Indication: Dizziness and giddiness On: 2-Adu-340617:57 Request CBC WITH MANUAL DIFF (09503)Indication: Dizziness and giddiness On: 4-Auf-540726:57 Request HEPATIC FUNCTION PANEL (70982)Indication: Mixed hyperlipidemia On: :59 Request LIPID PANEL (15598)Indication: Mixed hyperlipidemia On: 3-Tao-217831:59 Request URINALYSIS W/O MICRO (27661)Indication: Hypertension, benign On: 9-Iak-334611:05 Request TSH (89815)Indication: Hypertension, benign On: 7-Uhk-595789:05 Request CBC WITH MANUAL DIFF (71475)Indication: Hypertension, benign On: 9-Lwh-299218:05 Request METABOLIC PANEL, COMPREHENSIVE (79120)Indication: Hypertension, benign On: 9-Iiq-616255:05 Request LIPID PANEL (82260)Indication: Mixed hyperlipidemia On: 4-Grv-566907:04 Request HEPATIC FUNCTION PANEL (41408)Indication: Mixed hyperlipidemia On: 4-Vkr-935676:04 Request URINE ANN CULTURE-IDENTIFICATN (34252)Indication: Hematuria On: 53-Enp-580730:57 Request URINALYSIS (91441)Indication: Hematuria On: 34-Ztb-714861:57 Request URINE ANN CULTURE-IDENTIFICATN (17369)Indication: Hematuria On: 19-Iox-903531:56 Request Comments: if neg- ct of abdomen and pelvis URINALYSIS (46572)Indication: Hypertension On: 56-Ikt-237698:04 Request TSH (88161)Indication: Hypertension On: 37-Xri-302813:03 Request CBC WITH MANUAL DIFF (50764)Indication: Hypertension On: 08-Pje-280791:03 Request METABOLIC PANEL, COMPREHENSIVE (79762)Indication: Hypertension On: 14-Uoc-949607:03 Request LIPID PANEL (35927)Indication: Mixed hyperlipidemia On: 27-Nwi-260196:03 Request Planned Procedures Nuclear Stress Test/Stress On: 26-Mar-2018 Intent SPECT/AdenosineBy: Lilliana Mishra DO Comments: h/o achilles tendonits and cant run on treadmill Lilliana Mishra DO Echo CompleteBy: Lilliana Mishra DO On: 26-Mar-2018 Intent Lilliana Mishra DO ULTRASOUND LIVER/GB (04867)By: Tad On: 26-Mar-2018 Intent Lilliana RIOS DO, Kathleen ELECTROCARDIOGRAM, COMPLETE (ECG) On: 26-Mar-2018 Intent (68490)By: Lilliana Mishra DO Comments: nsr no acute chg -- compared to 2012 and no signif chg -- poor R wave progression DOLilliana Flu Vaccine (Quadrivalent) 82151Yc: On: 17-Feb-2018 Intent Belinda May Comments: Lot #[id number]-L dltd, IMAmount: 0.5mlVIS reviewed and ABN signedgiven by:CHASE Phan reviewed and ABN signed CHEST XRAY, PA & LATERAL (29685)By: On: 10-Nov-2017 Intent Louise Darby Spirometry (50305)By: Louise Darby On: 10-Nov-2017 Intent Comments: Normal X-RAY RIGHT WRIST, 3+ VIEWS (28276)By: On: 01-Sep-2017 Intent Tad DOLilliana Tad DO, Lilliana Radiology - Wrist - LeftBy: Tad RIOS, On: 01-Sep-2017 Intent Lilliana Mccordon DO, Lilliana X-RAY OF COCCYX, TWO VIEWS (14419)By: On: 01-Sep-2017 Intent Tad DO, Lilliana Tad DO, Lilliana PNEUM VAC ADLT/IMUMNOSPR, SBC/INTRM On: 29-Apr-2017 Intent (58079)By: Lilliana Mishra DO Comments: pneumovax prefilled syringe injectionlot: [id number]: 07/05/2018L DELT IMpt tolerated wellAD [employer] DOLilliana Flu Vaccine (Quadrivalent) [id number]: On: 29-Jan-2017 Intent Tad DO Lilliana Tad DO, Comments: lot: [id number]: 09/01/17ite/route: L david, IMamt: 0.5mlVIS and ABN signed when applicableALISHA Crow ORTHOSTATIC BLOOD PRESSURE ASSESSMENT On: 22-Aug-2016 Intent ([id number])By: Louise Darby Comments: Negative ULTRASOUND AORTA ([id number])By: Tad RIOS, On: 18-Jul-2016 Intent Lilliana Rivas DO EMGBy: Amy Coppola CNP On: 18-Oct-2014 Intent Nerve ConductionBy: Amy Coppola CNP On: 18-Oct-2014 Intent Radiology - Wrist - RightBy: Abdon On: 18-Oct-2014 Intent Amy MAGAÑA FLU VAC, SPLIT, >3 YEARS, INTRAMUSC On: 12-Jan-2013 Intent ([id number])By: Yoselin Evans Comments: Lot:[id number]:Dose:0.5mLRoute:IMSite:L DltdGiven By:YOUNG signed IMMUNIZ ADMNIN, 1 VAC, SNGL/COMBO On: 12-Jan-2013 Intent ([id number])By: Yoselin Evans Eprescribed prescriptions ([id number])By: On: 04-Jan-2013 Intent Mignon Irving EKG ([id number])By: Mercedez Tapia On: 06-Apr-2012 Intent Comments: ekg showed normal sinus rhythym, normal axis, no acute st/t wave changes Eprescribed prescriptions ([id number])By: On: 06-Apr-2012 Intent Mercedez Tapia Eprescribed prescriptions ([id number])By: On: 17-Feb-2012 Intent Louise Hahn LPN FLU VAC, SPLIT, >3 YEARS, INTRAMUSC On: 02-Dec-2011 Intent ([id number])By: Mercedez Tapia Comments: Lot #[id number]/30/13Site-left deltoidgiven by: Theresa Lozano LPN Radiology - Hip - BilateralBy: Fast On: 02-Dec-2011 Intent DO, Mayra A IMMUNIZ ADMNIN, 1 VAC, SNGL/COMBO On: 02-Dec-2011 Intent ([id number])By: Mercedez Tapia [place] VACC, [place] ([id number])By: Regina, On: 08-Aug-2011 Intent Mercedez Eprescribed prescriptions ([id number])By: On: 29-Jul-2011 Intent Fast DO, Mayra A EKG ([id number])By: Mercedez Tapia On: 01-Apr-2011 Intent Comments: ekg showed normal sinus rhythym, normal axis, no acute st/t wave changes FLU VAC, SPLIT, >3 YEARS, INTRAMUSC On: 01-Apr-2011 Intent ([id number])By: Mercedez Tapia Comments: work TDAP VACCINE >7 IM ([id number])By: Tc COYLE, On: 31-Jul-2010 Intent Loly Comments: Lot #:[id number] date: 05/27Amount given: 0.5 mlRoute: IMSite given: left deltoidGiven by: Son Marrero RN FLU VAC, SPLIT, >3 YEARS, INTRAMUSC On: 20-Feb-2010 Intent ([id number])By: Mercedze Tapia IMMUNIZ ADMNIN, 1 VAC, SNGL/COMBO On: 20-Feb-2010 Intent ([id number])By: Mercedez Tapia Comments: Lot #[id number]-L armDose0.5mlgiven by:SKYLA Radiology - Lumbar SpineBy: Fast DO, On: 25-Jul-2009 Intent Mayra A EKG ([id number])By: Mercedez Tapia On: 13-Feb-2009 Intent Comments: ekg showed normal sinus rhythym, normal axis, no acute st/t wave changes Radiology - Hip - RightBy: Fast DO, On: 23-Jun-2007 Intent Mayra A Radiology - Lumbar SpineBy: Fast DO, On: 23-Jun-2007 Intent Mayra A FLU VAC, SPLIT, >3 YEARS, INTRAMUSC On: 03-Feb-2007 Intent ([id number])By: Catia Clement Comments: Lot #[id number] Exp-09/14/07Site-left deltoid Dose0.5ccgiven by Paul Clement LPN IMMUNIZ ADMNIN, 1 VAC, SNGL/COMBO On: 03-Feb-2007 Intent ([id number])By: Catia Clement EKG ([id number])By: Mercedez Tapia On: 14-May-2006 Intent Comments: done-jjpekg showed normal sinus rhythym, normal axis, no acute st/t wave changes CT - Abdomen & Pelvis Stone On: 07-Apr-2006 Intent ProtocolBy: Fast DO, Mayra A Instructions Name Dates Details Chest pain, atypical : How to access [...] prophylactic vaccination and inoculation against influenza Encounters Office Visit On: 26-Mar-2018 11:43 Encounter Reason: [...] feels mood is good thinks issue with skleep is menopausal and doesnt want to shut [...] 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 [employer]- dilshad- so feels like needs to increase [...] of wart and 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 want to see 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- she is up to 5 mg of [...] for Follow up, Labor atory Test Results: saw Stephane- got colonsocopy-ok - has family hx of thyroid- having hip [...] Note for Follow up, Laboratory Test Results: saw Stephane natalie colonsocopy-ok - has family hx of thyroid- having hip [...] bad news about her job yesterday and that is why bp up- she gets it checked periodically and is always 120/70-- had cystoscopy at [facility] and he didnt find anythingEncounter Diagnosis: Hyperlipidemia, [...] was on hormones and had gone to [facility] and ended up with a possible blood [...] of infection (915.4) [facility] Payers [employer]/MedicareDorene Miller; son guarantor
--- OUTSIDE RECORDS SUMMARY | 2018-06-05 22:05 | XMS RPT_ITS | Continuity of Care Document ---
:1950 Author Organization [facility] Address [facility] [address] [place] [address] Phone Care Team Providers Name Role Phone Tad DO Lilliana Unavailable Flako SALAZAR, Yahaira Kuhn Unavailable Beto Mayra RIOS Unavailable Dimitris SALAZAR, Dr. Alex Dunlap Unavailable Pascual Knutson Unavailable MACO Hahn Unavailable Unavailable Louise Darby Unavailable Unavailable Emick, Bedford Unavailable Unavailable Gravius, Belinda Unavailable Unavailable Unavailable Unavailable Problems Name Dates [...] Active BMI 33.0-33.9,adult (Z68.33, V85.33) Status: Active Cough (R05, 786.2) Comments: not wheezing right now ? eractionto candle and tree. reecommend antihistamine and steriod nasla spray. Status: Active Cough (R05, 786.2) Comments: Returned home from trip to [place]-dust allergy? Status: Active Cough (R05, 786.2) Status: Active Deliveries (Parity) Comments: 1 Status: Active Depression (F32.9, 311) Comments: has been stable Status: Active Disorder of the skin and subcutaneous tissue, unspecified (L98.9, 709.9) Status: Active Dizziness (R42, 780.4) Status: Active Dizzy (R42, 780.4) Status: Active Elevated blood pressure reading (R03.0, 796.2) Status: Active Gastroesophageal reflux disease without esophagitis [...] Active Pulsatile abdomen (R19.8, 789.9) Status: Active Sigmoidoscopy Comments: Neg. Status: Active [...] qd for 30 days Refills: 0 Ordered:26-Jun-2016 Amy Coppola CNP Start : 26-Jun-2016 Active Crestor 5 MG [...] 0 days Quantity: 30 {Tablet} Refills: 0 Ordered:16-Oct-2017 Amy Coppola CNP Start : 16-Oct-2017 Active Pantoprazole Sodium 40 MG Oral Tablet Delayed Release 1 (one) Tablet DR daily for 0 days Quantity: 90 {Tablet} Refills: 3 Ordered:16-Oct-2017 Amy Coppola CNP Start : 16-Oct-2017 Active Synthroid 100 MCG Oral Tablet 1 [...] days Quantity: 10 {Patch} Refills: 0 Ordered:26-Dec-2017 Camilo Mishra DO, DO, Kathleen Start : 26-Dec-2017 Active VALTREX, 500MG (Oral [...] days Refills: 0 Ordered:25-Jul-2009 Chapis Tapiactive ZOSTAVAX, 19927IKU/0.65ML (Subcutaneous Solution Reconstituted) 1 (one) For Solution one time dose for 0 days Quantity: 1 {For_Solution} Refills: 0 Ordered:06-Apr-2012 Mercedez Tapia Start : 08-Aug-2011 End : 06-Apr-2012 Inactive Comments:if pharmacy cant give injection then bring to 's office immediatly to receive injection. BENADRYL, 25MG [...] qd for 0 days Refills: 0 Ordered:18-Oct-2014 Sergiorb Dorene DEWEY End : 18-Oct-2014 Discontinued LICORICE [...] days Quantity: 20 {Tablet} Refills: 0 Ordered:26-Jun-2016 Slaelsie DEWEY Dorene Start : 09-Nov-2015 End : 26-Jun-2016 Discontinued [...] days Quantity: 90 {Tablet} Refills: 3 Ordered:13-Feb-2009 Mayra Pérez DO Start : 13-Feb-2009 End : 13-Feb-2009 Discontinued Comments:hip pain TRANSDERM-SCOP, 1.5MG (Transdermal Patch 72 Hour) apply 1 patch Patch 72HR change every 72 hrs, prn for 0 days Quantity: 10 {Patch} Refills: 0 Ordered:31-Dec-2013 Jay Nikki DEWEY Start : 02-Jun-2013 End : 31-Dec-2013 Discontinued [...] and Lateral Result: Comments: See Note; NOTES: [facility] Imaging Services [address] [place] [address] Chest PA and Lateral MR#: [id number] Acct: [id number] Name: PAMELA GUTIERREZ Rep #: [id number] : 1950 F 67 From: Dylan Amado MD PCP: Lilliana Mishra DO Status: REG CLI Study: Chest PA and Lateral Date of Exam: 11/10/17 Exam# [id number] Ordering Dr: Louise Darby NAIL TECH-C STUDY: X- RAY CHEST REASON FOR EXAM: [...] Fax CC: LAZARO Darby; Lilliana Mishra DO Customer Engagement Analyst: Signed 01-Sep-2017 Sacrum-Coccyx min 2 Views Result: Comments: See Note; NOTES: [facility] Imaging Services [address] [place] [address] Sacrum-Coccyx min 2 Views MR#: [id number] Acct: [id number] Name: PAMELA GUTIERREZ Rep #: [id number] : 1950 F 67 From: Mikael Alexander MD PCP: Lilliana Mishra DO Status: REG CLI Study: Sacrum-Coccyx min 2 Views Date of Exam: 09/01/17 Exam# [id number] Ordering Dr: Lilliana Mishra DO UDY: X-RAY - SACRUM/COCCYX REASON FOR [...] Service support , CC: Lilliana Mishra DO Customer Engagement Analyst: Signed 01-Sep-2017 Wrist min 3 Views Result: Comments: See Note; NOTES: [facility] Imaging Services [address] [place] [address] Wrist min 3 Views MR#: [id number] Acct: [id number] Name: PAMELA GUTIERREZ Rep #: [id number] : 1950 F 67 From: Mikael Alexander MD PCP: Lilliana Mishra DO Status: REG CLI Study: Wrist min 3 Views Date of Exam: 09/01/17 Exam# [id number] Ordering Dr: Lilliana Mishra DO STUDY: X-RAY [...] Service support , CC: Lilliana Mishra DO Customer Engagement Analyst: Signed 01-Sep-2017 Wrist min 3 Views Result: Comments: See Note; NOTES: [facility] Imaging Services [address] [place] [address] Wrist min 3 Views MR#: [id number] Acct: [id number] Name: PAMELA GUTIERREZ Rep #: [id number] : 1950 F 67 From: Mikael Alexander MD PCP: Lilliana Mishra DO Status: REG CLI Study: Wrist min 3 Views Date of Exam: 09/01/17 Exam# [id number] Ordering Dr: Lilliana Mishra DO STUDY: X-RAY [...] Service support , CC: Lilliana Mishra DO Customer Engagement Analyst: Signed 08-Mar-2017 Urgent Care Visit Report Result: Comments: See Note; NOTES: [address] [place] [address] OFFICE VISIT Date of Service: 03/08/17 MR#: [id number] Acct: [id number] Name: PAMELA GUTIERREZ Re p #: [id number] : 1950 Provider: ANISA Santamaria Age/Sex: 66/F Location: [facility] [place] Status: Signed Intake Intake [...] mg PO DAILY 07/11/14 [History Confirmed 03/08/17] wdbacibumqcwtyi-mzkdlgttrwgyqjb-QY 2 mg- 30 mg-10 mg/5 mL syrup [...] 19-Jul-2016 Aorta Result: Comments: See Note; NOTES: [facility] Imaging Services [address] [place] [address] Verdana 4d Aorta MR#: [id number] Acct: [id number] Name: PAMELA GUTIERREZ Rep #: [id number] D OB: 1950 F 65 From: Hi Reynoso MD PCP: Lilliana Mishra DO Status: REG CLI Study: Aorta Date of Exam: 07/19/16 Exam# [id number] Ordering Dr: Lilliana Mishra DO PROCEDURES: ULTRASOUND [...] Hi Reynoso MD at 9:24 EDT Tel [phone], Service support , CC: Lilliana Mishra DO Customer Engagement Analyst: Signed 18-Oct-2014 Wrist min 3 Views Result: Comments: See Note; NOTES: [facility] Imaging Services [address] [place] [address] Radiology Report MR#: [id number] Acct: [id number] Name: PAMELA GUTIERREZ Rep #: [id number] : 1950 F 64 From: Hi Reynoso MD PCP: Mayra Pérez DO Status: REG CLI Study: Wrist min 3 Views Date of Exam: 10/18/14 Exam# [id number] Ordering Dr: Amy Coppola STUDY: X-RAY - [...] Hi Reynoso MD at 16:02 EDT Tel [phone], Service support [phone], RAD/Wrist mi n 3 Views IMPRESSION: Normal x-ray examination of the wrist. Electronically Signed: Hi Reynoso MD at 16:02 EDT Tel [phone], Service support [phone], CC: Amy Coppola; Mayra Pérez DO Customer Engagement Analyst: Signed 17-Jul-2014 Emergency Department Summary Result: Comments: See Note; NOTES: [facility] Medical Records Department [address] [place] [address] Emergency Department Summary MR#: [id number] Acct: [id number] Name: PAMELA GUTIERREZ Rep #: [id number] : 1950 63 From: Ronald Payne MD PCP: Mayra Pérez DO Status: DEP ER DATE OF SERVICE: 07/11/2014 CHIEF COMPLAINT: Left wrist pain and knee pain. HISTORY OF HI ESENT ILLNESS: The patient was in an [...] medicine here to go. She will use sekf-vki-suhtgob ice, elevation may help. Follow up within [...] ht knee contusion. MD Neema Berry C: [employer] Ronald Langston MD T: NTS JOB: [id number] 07/17/14 1528 <Electronically signed by Ronald Payne MD> Date Ronald Payne MD CC: Mayra Pérez DO; Ronald Langston MD; [employer] Date Dictated: 07/11/142249 Date Transcribed: 07/11/142249 Customer Engagement Analyst: Signed 11-Jul-2014 Discharge Instruction Result: Comments: See Note; NOTES: [facility] Medical Records Department [address] [place] [address] Discharge Instruction 07/11/142130 MR#: [id number] Acct: [id number] Name: PAMELA GUTIERREZ Rep #: [id number] : 1950 63 From: Ronald Payne MD [...] Doctors [facility] ) or report to the [facility] Emergency Room. Call 911 if necessary. 07/11/142131 <Electronically signed by Ronald Payne MD> Date Ronald Payne MD Cos igner Signature (If Indicated): Date CC: Mayra Pérez DO 11-Jul-2014 Wrist min 3 Views Result: Comments: See Note; NOTES: [facility] Imaging Services [address] [place] [address] Radiology Report MR#: [id number] Acct: [id number] Name: PAMELA GUTIERREZ Rep #: [id number] : 1950 F 63 From: Hi Reynoso MD PCP: Mayra Pérez DO Status: DEP ER Study: Wrist min 3 Views Date of Exam: 07/11/14 Exam# [id number] Ordering Dr: Ronald Payne MD STUDY: X-RAY [...] Hi Reynoso MD at 9:18 EDT Tel [phone], Service support [phone], RAD/Wrist min 3 Views IMPRESSION: I suspect a nondisplaced linear fracture involving the distal radial metaphysis with extension to the articular surface. Soft tissue swelling. Electronically Signed: Hi Reynoso MD at 9:18 EDT Tel [phone], Service support [phone], CC: Mayra Pérez DO; Ronald Payne MD Customer Engagement Analyst: Signed 22-Oct-2013 EKG (81458) Comments: ekg showed normal sinus rhythym, normal axis, no acute st/t wave changes biphasic twave otherwise no change Result: [MEASUREMENTS ANALYSIS] Date of Test: 10/22/2013 14:05:39; Heart Rate: 67; HI Interval: 154; QRS: 90; QT Interval: 388; Corrected QT Interval (QTc): 400; P Wave [place]: 31; QRS Wave [place]: -15; T Wave [place] : 1; Blood Pressure: 112/72 [ECG DIAGNOSTIC STATEMENTS] Date of Test: 10/22/2013 14:05:39; Summary: Sinus Rhythm - Diffuse nonspecific T-abnormality. ABNORMAL Immunization Name Dates Details Influenza (3 years and up) on: 03-Feb-2007 Comments: Lot #[id number] Exp-09/14/07Site-left deltoid Dose0.5ccgiven by Paul Clement LPN [...] smoker Vital Signs Date Test Result Details :15 Temperature 97.7 f Comments: Method: Temporal [...] kg/m2 Body Surface Area Calculated 2.03 m2 33-Kru-898913:56 Temperature 97.6 f Comments: Method: Temporal Pulse [...] 0.00 cm Results Date Description Value Details 62-Ulp-922652:40 TSH (13439) Comments: PATIENT WAS FASTINGPERFORMED BY: Semantics[address] [id number] BY: [facility]Oneexchangestreet [employer] [facility] [place] [id number]; fu 09-01-17 KF TSH 0.340 {uIU/mL} (Abnormal) Range: 0.450-4.500 :40 CALCIFIDIOL (42624) VIT D Comments: PATIENT WAS FASTINGPERFORMED BY: Milmen[employer]com[address] [id number] BY: FRAMED70 [facility] [id number] 25 Vitamin D, 25-Hydroxy 37.6 ng/mL (Normal) Range: 30.0-100.0 Comments: Vitamin D deficiency has been defined by the [place] of[place]icine and an Endocrine Society practice guideline as alevel of serum 25-OH vitamin D less than 20 ng/mL (1,2).The Endocrine Society went on to further define vitamin Dinsufficiency as a level between 21 and 29 ng/mL (2).1. IOM ([place] of Medicine). 2010. Dietary reference intakes for calcium and D. [place]: The National Academies Press.2. Fletcher MF, Edgardo NC, Dina KAPLAN, et al. Evaluation, treatment, and prevention of vitamin D deficiency: an Endocrine Society clinical practice guideline. JCEM. 2010; 96(7):1911-30. 23-Goz-186807:40 LIPOPROTEIN, BLD, BY NMR Comments: PATIENT WAS FASTINGPERFORMED BY: [facility]Oneexchang[facility] [id number] BY: [employer] LabOneexchangestreet Ldflzg8262 [facility] [place] [id number] (66609) LP-IR Score 71 (Abnormal) Comments: INSULIN RESISTANCE MARKER <--Insulin Sensitive Insulin Resistant--> Percentile in Reference PopulationInsulin Resistance ScoreLP-IR Score Low 25th 50th 75th High <27 27 45 63 >63LP-IR Score is inaccurate if patient is non-fasting. .The LP-IR score is a laboratory developed i [facility] that has beenassociated with insulin resistance and [...] were developed and their performance characteristicsdetermined by [employer]. These assays have not been cleared by [...] 1600 - 2000 Very High > 2000 53-Ohp-967621:40 METABOLIC PANEL, Comments: PATIENT WAS FASTINGPERFORMED BY: BN [facility] Ecsnlyqqby0912 [facility] [id number] BY: CB [facility] Foiumy3197 [facility] [id number] COMPREHENSIVE (71621) ALT (SGPT) 16 [iU]/L (Normal) Range: 0-32 [...] 8-27 Glucose 85 mg/dL (Normal) Range: 65-99 36-Pcn-638330:40 CBC with auto diff Comments: PATIENT WAS FASTINGPERFORMED BY: Priori DataDeanna [place] 849557 [facility] [id number] BY: Priori DataHarper University Hospital6370 [facility] [id number] (30905) Immature Grans (Abs) 0.0 {x10E3/uL} (Normal) Range: [...] 3.77-5.28 WBC 4.8 {x10E3/uL} (Normal) Range: 3.4-10.8 97-Eop-701736:43 Microscopic Examination Comments: PATIENT WAS FASTINGPERFORMED BY: Priori DataHarper University Hospital6370 [facility] [id number] Bacteria None seen (Normal) Mucus Threads Present (Normal) Epithelial Cells (non renal) 0-10 {/hpf} (Normal) Range: 0 - 10 RBC None seen {/hpf} (Normal) Range: 0 - 2 WBC 0-5 {/hpf} (Normal) Range: 0 - 5 :43 CALCIFEDIOL (14902) Comments: PATIENT WAS FASTINGPERFORMED BY: [employer] Byxaea0426 [facility] [id number] Vitamin D, 25-Hydroxy 68.6 ng/mL (Normal) Range: 30.0-100.0 Comments: Vitamin D deficiency has been defined by the [place] of[place]icine and an Endocrine Society practice guideline as alevel of serum 25-OH vitamin D less than 20 ng/mL (1,2).The Endocrine Society went on to further define vitamin Dinsufficiency as a level between 21 and 29 ng/mL (2).1. IOM ([place] of Medicine). 2010. Dietary reference intakes for calcium and D. [place]: The National Academies Press.2. Fletcher MF, Edgardo NC, Dina KAPLAN, et al. Evaluation, treatment, and prevention of vitamin D deficiency: an Endocrine Society clinical practice guideline. JCEM. 2010; 96(7):1911-30. :43 TSH (31501) Comments: PATIENT WAS FASTINGPERFORMED BY: Interactive SupercomputingCapital [facility])Tjuqcb9146 [facility] [id number] TSH 4.800 {uIU/mL} (Abnormal) Range: 0.450-4.500 :43 URINALYSIS, W/ MICRO (44309) Comments: PATIENT WAS FASTINGPERFORMED BY: Priori DataHarper University Hospital6370 [facility] [id number] Microscopic Examination See below: (Normal) Comments: Microscopic was indicated and was performed. Nitrite, Urine Negative (Normal) Urobilinogen,Semi-Qn 0.2 mg/dL (Normal) Range: 0.2-1.0 Bilirubin Negative (Normal) Occult Blood 1+ (Abnormal) Ketones Negative (Normal) Glucose Negative (Normal) Protein Negative (Normal) WBC Esterase Trace (Abnormal) Appearance Clear (Normal) Urine-Color Yellow (Normal) pH 6.0 (Normal) Range: 5.0-7.5 Specific [place] 1.013 (Normal) Range: 1.005-1.030 :43 MICROALBUMIN: CREATININE RATIO Comments: PATIENT WAS FASTINGPERFORMED BY: nGame Vabdco3526 [facility] [id number] (29829) AND (72101) Microalb/Creat Ratio <4.4 {mg/g_creat} (Normal) Range: 0.0-30.0 Microalbumin, Urine <3.0 ug/mL (Normal) Creatinine, Urine 67.5 mg/dL (Normal) :43 METABOLIC PANEL, COMPREHENSIVE Comments: PATIENT WAS FASTINGPERFORMED BY: [employer]70 [address] [facility] HospitalTempronicsWashington Regional Medical Center [id number] (61222) ALT (SGPT) 21 [iU]/L (Normal) Range: 0-32 [...] Glucose, Serum 87 mg/dL (Normal) Range: 65-99 43-Ioi-879034:43 LIPID PANEL (60259) Comments: PATIENT WAS FASTINGPERFORMED BY: Interactive SupercomputingCapital [facility])Oksxyl8018 [facility] [id number] LDL/HDL Ratio 2.1 {ratio_units} (Normal) Range: 0.0-3.2 Comments: LDL/HDL Ratio Men Women 1/2 Avg.Risk 1.0 1.5 Av g.Risk 3.6 3.2 2X Avg.Risk 6.2 5.0 3X Avg.Risk 8.0 6.1 LDL Cholesterol Calc 81 mg/dL (Normal) Range: 0-99 VLDL Cholesterol Jorge 20 mg/dL (Normal) Range: 5-40 HDL Cholesterol 38 mg/dL (Abnormal) Triglycerides 102 mg/dL (Normal) Range: 0-149 Cholesterol, Total 139 mg/dL (Normal) Range: 100-199 12-Nhz-658338:43 CBC W/AUTO DIFF WBC (71827) Comments: PATIENT WAS FASTINGPERFORMED BY: [employer] Xjfphb9868 [facility] [id number] Immature Grans (Abs) 0.0 {x10E3/uL} (Normal) Range: [...] {x10E3/uL} (Normal) Range: 3.4-10.8 :33 C-REACTIVE PROTEIN (91196) Comments: PATIENT NOT FASTINGPERFORMED BY: [facility] SupercomputingCap[facility])Ftfzaf9939 [facility] [id number] C-Reactive Protein, Quant 0.7 mg/L (Normal) Range: 0.0-4.9 :33 SED RATE ERYTHROCYTE (33654) Comments: PATIENT NOT FASTINGPERFORMED BY: [facility] SupercomputingCap[facility])Gklmlt1114 [facility] [id number] Sedimentation Rate-[facility] 3 mm/h (Normal) Range: 0-40 :33 CBC, PLATELETS & AUT DIFF Comments: PATIENT NOT FASTINGPERFORMED BY: [facility] SupercomputingCap[facility])Ftvpit9184 [facility] [id number] Information: [id number] (28528) Immature Grans (Abs) 0.0 {x10E3/uL} (Normal) Range: [...] 3.77-5.28 WBC 5.6 {x10E3/uL} (Normal) Range: 3.4-10.8 6-Dex-967832:33 METABOLIC PANEL, COMPREHENSIVE Comments: PATIENT NOT FASTINGPERFORMED BY: [facility]CoCapital [facility])Tsqmtp8984 [facility] [id number] (52187) ALT (SGPT) 18 [iU]/L (Normal) Range: 0-32 [...] mg/dL (Normal) Range: 65-99 :26 ANN CULTURE-STOOL (99035) Comments: PATIENT NOT FASTINGPERFORMED BY: [employer]Game [employer] [facility] [id number] Information: SRC:ST SRC:ST E coli Shiga Toxin EIA Negative (Normal) Result 1 NCI (Normal) Comments: No Campylobacter species isolated. Campylobacter Culture Final report (Normal) Result 1 NSS (Normal) Comments: No Salmonella or Shigella recovered. Salmonella/Shigella Screen Final report (Normal) :26 Clostridium difficile Toxin Comments: PATIENT NOT FASTINGPERFORMED BY: nGame Toqfph0758 [facility] [id number] A+B, EIA (68660) C difficile Toxins A+B, EIA Negative (Normal) :26 LEUKOCYTE COUNT, FECAL (79244) Comments: PATIENT NOT FASTINGPERFORMED BY: [employer] Ksfyqq0639 [facility] [id number] Result 1 NWBC (Normal) Comments: No white blood cells seen. White Blood Cells (WBC), Final report (Normal) Stool :26 OVA & PARASITE DIR SMEAR Comments: PATIENT NOT FASTINGPERFORMED BY: [employer] Mzrxcn2683 [facility] [id number] (55165) Result 1 NOCP (Normal) Comments: No ova, cysts, or parasites seen. Ova + Parasite Exam Final report (Normal) Comments: These results were obtained using wet preparation(s) and trichromestained smear. This test does not include testing for Cryptosporidiumparvum, Cyclospora, or Microsporidia. 64-Jrn-697915:44 TSH (25035) Comments: PATIENT WAS FASTINGPERFORMED BY: [employer] Nmxjwb0046 [facility] [id number] TSH 1.290 {uIU/mL} (Normal) Range: 0.450-4.500 :44 CBC W/AUTO DIFF WBC (78563) Comments: PATIENT WAS FASTINGPERFORMED BY: [facility] SupercomputingCap[facility])Lruumx8015 [facility] [id number] Immature Grans (Abs) 0.0 {x10E3/uL} (Normal) Range: [...] 3.77-5.28 WBC 5.6 {x10E3/uL} (Normal) Range: 3.4-10.8 :44 METABOLIC PANEL, COMPREHENSIVE Comments: PATIENT WAS FASTINGPERFORMED BY: [facility]6370 [facility] [id number] (79348) ALT (SGPT) 10 [iU]/L (Normal) Range: 0-32 [...] Glucose, Serum 91 mg/dL (Normal) Range: 65-99 60-Jpl-387792:44 LIPID PANEL (10512) Comments: PATIENT WAS FASTINGPERFORMED BY: [facility]CoCapital [facility])Yfrxkt4167 [facility] [id number]; non-emergent till apt tomorrow LDL/HDL Ratio 3.3 [...] 246 mg/dL (Abnormal) Range: 100-199 :59 TSH (92706) Comments: PATIENT WAS FASTINGPERFORMED BY: [facility]6370 [facility] [id number] TSH 0.081 {uIU/mL} (Abnormal) Range: 0.450-4.500 :59 Vitamin D Hydroxy (78018) Comments: PATIENT WAS FASTINGPERFORMED BY: [facility]6370 [facility] [id number] Vitamin D, 25-Hydroxy 42.0 ng/mL (Normal) Range: 30.0-100.0 Comments: Vitamin D deficiency has been defined by the [place] of[place]icine and an Endocrine Society practice guideline as alevel of serum 25-OH vitamin D less than 20 ng/mL (1,2).The Endocrine Society went on to further define vitamin Dinsufficiency as a level between 21 and 29 ng/mL (2).1. IOM ([place] of Medicine). 2010. Dietary reference intakes for calcium and D. [place]: The National Academies Press.2. Fletcher MF, Edgardo [place], Evangelist-Baldev KAPLAN, et al. Evaluation, treatment, and prevention of vitamin D deficiency: an Endocrine Society clinical practice guideline. JCEM. 2010; 96(7):1911-30. :59 LIPID PANEL (30339) Comments: PATIENT WAS FASTINGPERFORMED BY: [facility]6370 [facility] [id number] Information: 271234,K11652 LDL/HDL Ratio 2.8 {ratio_units} (Normal) Range: 0.0-3.2 [...] Cholesterol, Total 229 mg/dL (Abnormal) Range: 100-199 03-Uwi-019191:56 Allergen, Rast Food Profile Comments: Test performed at:[facility] [address] [place] [address] RAST COMMENT Comment (Normal) Comments: Levels of [...] in this mix are: Blue mussel Fish [place] Shrimp Tuna EGG, WHOLE <0.10 kU/L (Normal) CHOCOLATE <0.10 kU/L (Normal) Comments: Performed at: [address] [id number] Director: Vaughn Garsia MD, Phone: [phone] BEEF <0.10 kU/L (Normal) PORK <0.10 kU/L (Normal) SOYBEAN <0.10 kU/L (Normal) PEANUT <0.10 kU/L (Normal) CORN <0.10 kU/L (Normal) WHEAT <0.10 kU/L (Normal) MILK (COW) <0.10 kU/L (Normal) 67-Idi-18026:38 URINE ANN CULTURE-FILOMENA COL Comments: PATIENT NOT FASTINGPERFORMED BY: [facility]CoCap[facility])Unsqmz3489 [facility] [id number] Information: SRC:[facility] F27573 COUNT (61437) Antimicrobial MIHEAD (Normal) Comments: S = Susceptible; [...] mL (Abnormal) Urine Final report Culture,Comprehensive (Abnormal) 55-Ccd-319989:11 Urinalysis, Office (52572) UA - LEUKOCYTE ESTERASE Large (Normal) UA - NITRITE Negative (Normal) URINE UROBILINGN FILOMENA TIMED Normal mg/dL (Normal) UA - PROTEIN Negative mg/dL (Normal) UA - PH 5.0 (Normal) UA - BLOOD Non Hemolyzed Moderate (Normal) UA - SPECIFIC GRAVITY 1.015 (Normal) UA - KETONES Negative mg/dL (Normal) UA - BILIRUBIN Negative (Normal) UA - GLUCOSE Negative (Normal) 1-Ztl-805698:33 Comprehensive Metabolic Profil Comments: Test performed at:[facility] [address] [place], [place] [id number] GAP 4 (Abnormal) Range: 5-15 CO2 31.0 [...] 7-18 GLU 89 mg/dL (Normal) Range: 70-110 1-Cic-485454:33 Lipid Profile Comments: Test performed at:[facility] Babqulivbd[address] [place], [place] [id number] VLDL 31 mg/dL (Normal) Range: 5-40 LDL [...] 200-240 mg/dL Borderline >240 mg/dL High Risk 4-Wyo-590937:33 Thyroid Stim Hormone (TSH) Comments: Test performed at:[facility] [address]vw[address] [place], [place] [address] TSH 3.03 {uIU/mL} (Normal) Range: 0.358-3.74 :57 TSH (75794) Comments: PATIENT WAS FASTINGPERFORMED BY: [employer] Wlpzfn5829 [facility] [id number] TSH 7.420 {uIU/mL} (Abnormal) Range: 0.450-4.500 :57 METABOLIC PANEL, Comments: PATIENT WAS FASTINGPERFORMED BY: [facility]Oshpux2780 [facility] [id number] Information: [id number],D75170 COMPREHENSIVE (82003) ALT (SGPT) 10 [iU]/L (Normal) Range: 0-32 [...] mg/dL (Normal) Range: 65-99 :57 LIPID PANEL (32391) Comments: PATIENT WAS FASTINGPERFORMED BY: [facility]Co[facility]Zztmkl9798 [facility] [id number] LDL/HDL Ratio 4.1 {ratio_units} (Abnormal) Range: 0.0-3.2 [...] Cholesterol, Total 280 mg/dL (Abnormal) Range: 100-199 50-Svx-955848:09 CMP GAP 7 (Normal) Range: 5-15 CO2 [...] 7-18 GLU 85 mg/dL (Normal) Range: 70-110 47-Wvl-978712:09 LIPID VLDL 39 mg/dL (Normal) Range: 5-40 [...] CHOL 260 mg/dL (Abnormal) Comments: <200 mg/dL Trniofhwe668-349 mg/dL Borderline>240 mg/dL High Risk 61-Bqn-662984:09 VITD 49.6 mg/mL (Normal) Comments: Vitamin D 25(OH) Status RangeDeficiency <20 ng/mL (50nmol/L)Insuffciency 20 - 30 ng/mL (50 - 75 nmol/L)Sufficiency 30 - 100 ng/mL (75 - 250 nmol/L)Toxicity >100 ng/mL (>250 nmol/L) 70-Bfm-322304:14 CMP GAP 5 (Normal) Range: 5-15 CO2 [...] 7-18 GLU 90 mg/dL (Normal) Range: 70-110 16-Mwy-183820:14 LIPID VLDL 36 mg/dL (Normal) Range: 5-40 [...] CHOL 257 mg/dL (Abnormal) Comments: <200 mg/dL Tjcevxnbv317-518 mg/dL Borderline>240 mg/dL High Risk :14 TSH 2.38 {uIU/mL} (Normal) Range: 0.358-3.74 15-Ydd-767129:14 VITD 25.6 mg/mL (Normal) Comments: Vitamin D 25(OH) Status RangeDeficiency <20 ng/mL (50nmol/L)Insuffciency 20 - 30 ng/mL (50 - 75 nmol/L)Sufficiency 30 - 100 ng/mL (75 - 250 nmol/L)Toxicity >100 ng/mL (>250 nmol/L) 82-Hiv-849923:56 Urinalysis, Office (75870) UA - BILIRUBIN Negative (Normal) UA - [...] CHOL 257 mg/dL (Abnormal) Comments: <200 mg/dL Jmunjzqrp470-259 mg/dL Borderline>240 mg/dL High Risk :57 TSH 3.02 {uIU/mL} (Normal) Range: 0.358-3.74 :51 LIPID PANEL (57760) Comments: PATIENT WAS FASTINGPERFORMED BY: [facility] [id number] LDL/HDL Ratio 2.9 {ratio_units} (Normal) Range: 0.0-3.2 [...] METABOLIC PANEL, Comments: PATIENT WAS FASTINGPERFORMED BY: Se[employer] NutraceuticalsDublin [place] [id number] Information: [id number] [facility] (80839) ALT (SGPT) 11 [iU]/L (Normal) Range: 0-32 [...] Glucose, Serum 85 mg/dL (Normal) Range: 65-99 85-Iil-306820:13 HIP, MIN 2 VIEWS Radiology Report See [...] Reynoso M.D.December 03, 2011 at 12:32:11 PM [id number] Signed GP/GP If you are the referring physician and would like to consult with theradiologist who provided this interpretation, please contact Aishwarya Rendon at [phone]. If this radiologist is unavailable, youwill be directed to another radiologist t o assist. If you are a patient with a question regarding this report, pleasecontactyour referring physician directly. Professional Interpretation Provided By: [employer], Phone ,Fax These documents contain legally protected [...] 1240 Sign b y: Hi Reynoso MD 64-Ryk-176238:13 HIP, MIN 2 VIEWS Radiology Report See [...] Nguyen M.D.December 03, 2011 at 12:33:05 PM [id number] Signed GP/GP If you are the referring physician and would like to consult with theradiologist who provided this interpre tation, please contact Aishwarya Rendon at [phone]. If this radiologist is unavailable, youwill be directed to another radiologist to assist. If you are a patient with a question regarding t his report, pleasecontactyour referring physician directly. Professional Interpretation Provided By: [employer], Phone , These documents contain legally protected [...] documents. Dicta cristiane on 12/02/11 1711 by Shiva SALAZAR,GabrieleTranscribed on 12/03/111918 by ITS IMPORTSign by Shiva SALAZAR,Hi on 12/03/111919 Sign by: Shiva SALAZAR,Hi 65-Zek-60215:48 METABOLIC PANEL, Comments: PATIENT WAS FASTINGPERFORMED BY: [facility]Dfiwkd6250 [facility] [id number] Information: [id number] COMPREHENSIVE (79433) ALT (SGPT) 10 [iU]/L (Normal) Range: 0-32 [...] 80 mg/dL (Normal) Range: 65-99 :48 TSH (94946) Comments: PATIENT WAS FASTINGPERFORMED BY: [employer] Ujyujf1661 [facility] [id number] TSH 2.860 {uIU/mL} (Normal) Range: 0.450-4.500 :48 LIPID PANEL (26938) Comments: PATIENT WAS FASTINGPERFORMED BY: [employer] Voygsf4626 [facility] [id number] LDL/HDL Ratio 2.7 {ratio_units} (Normal) Range: 0.0-3.2 LDL Cholesterol Calc 161 mg/dL (Abnormal) Range: 0-99 VLDL Cholesterol Jorge 35 mg/dL (Normal) Range: 5-40 HDL Cholesterol 60 mg/dL (Normal) Comments: According to ATP-III Guidelines, HDL-C >59 mg/dL is considered anegative risk factor for CHD. Triglycerides 174 mg/dL (Abnormal) Range: 0-149 Cholesterol, Total 256 mg/dL (Abnormal) Range: 100-199 :08 [facility] Culture exhibits no growth. (Normal) :08 [...] 10,000 ORGANISM 1: MIXED GRAM POSITIVE ORGANISMS 78-Lps-689090:33 Urinalysis, Office (26727) UA - BILIRUBIN Negative (Normal) UA - [...] NEGATIVE CLARITY CLEAR (Normal) COLOR YELLOW (Normal) 3-Wlz-474353:59 LIPID VLDL 39 mg/dL (Normal) Range: 5-40 [...] 200-240 mg/dL Borderline >240 mg/dL High Risk 6-Wwo-228884:59 TSH 3.19 {uIU/mL} (Normal) Range: 0.358-3.74 37-Abn-080905:15 LIPID VLDL 46 mg/dL (Abnormal) Range: 5-40 [...] 200-240 mg/dL Borderline >240 mg/dL High Risk 55-Shk-987168:15 LIVER D BILI 0.10 mg/dL (Normal) Range: [...] Very High > or = 500 mg/dL 87-Cpn-34642:17 TSH 3.46 {uIU/mL} (Normal) Range: 0.358-3.74 84-Aox-097104:37 CULTURE, URINE URINE CULTURE See Note {CFU/mL} Comments: COLONY COUNT 1000- 10,000 ORGANISM 1: MIXED GRAM POSITIVE ORGANISMS (Normal) 57-Dbe-353563:37 TSH 0.02 {uIU/mL} (Abnormal) Range: 0.358-3.74 29-Osi-271488:01 CULTURE, URINE URINE CULTURE See Note (Normal) Comments: Culture exhibits no growth. 69-Hdn-338838:40 L/S SPINE,MIN 4 VIEWS (MT) Radiology Report See Note (Normal) Comments: Exam Number: [id number] LUMBOSACRAL SPINE AP, lateral and oblique views [...] abnormality is seen. Reported By: HI REYNOSO 21-Lcv-882791:14 Urinalysis, Office (02067) UA - LEUKOCYTE ESTERASE Small (Normal) UA [...] CHOL 202 mg/dL (Abnormal) Comments: <200 mg/dL Joususlzo857-389 mg/dL Borderline>240 mg/dL High Risk TRIG 183 [...] 4.2-5.4 WBC 4.0 K/mm3 (Abnormal) Range: 4.4-11.0 :14 COMP METABOLIC ALK P 58 U/L (Normal) [...] 6.4-8.2 GLU 88 mg/dL (Normal) Range: 70-110 08-Iie-238996:14 [facility] 6676 281 {IU/mL} (Abnormal) Range: 0-34 Comments: Performed At: [address] [id number] :14 T4 FREE DIRECT 0.7 ng/dL (Abnormal) [...] (Normal) Range: 70-110 Comments: RESULTS CALLED TO 09/22/072 JOSELIN CERNA AMENDED REPORT 09/22/071701 GLU previously reported [...] Report See Note (Normal) Comments: Exam Number: [id number] FIVE VIEW LUMBAR SPINE AP, lateral, both [...] Report See Note (Normal) Comments: Exam Number: [id number] FIVE VIEW LUMBAR SPINE AP, lateral, both [...] degenerative changes. Reported By: CATHIE SALCEDO M.D. 40-Kdz-141681:24 CBCD,SMEAR DIFF BASOPHIL 1 % (Normal) Range: [...] 47-70 WBC 4.2 K/mm3 (Abnormal) Range: 4.4-11.0 60-Dae-190113:24 COMP METABOLIC A/G 1.3 {RATIO} (Normal) Range: [...] 0.2 EU/dl (Normal) Range: 0.2 - 1.0 20-Wyz-688788:24 TSH 4.71 {uIU/mL} (Normal) Range: 0.34-4.82 :16 Urinalysis, Office (52659) UA - BLOOD Non Hemolyzed Trace (Normal) UA - GLUCOSE Negative (Normal) UA - LEUKOCYTE ESTERASE Trace (Normal) UA - NITRITE Negative (Normal) UA - PH 5.0 (Normal) UA - PROTEIN Negative mg/dL (Normal) UA - SPECIFIC GRAVITY 1.005 (Normal) URINE UROBILINGN FILOMENA TIMED Normal mg/dL (Normal) :15 COMPLETE UA BACTERIA RARE {/hpf} (Normal) BILIRUBIN [...] (Normal) Range: 0-5 Comments: Result: 0-5 SEEN :15 CULTURE, URINE URINE CULTURE See Note {CFU/mL} [...] 3.5-5.1 NA 138 mmol/L (Normal) Range: 136-145 72-Xia-888853:35 CBC Comments: COMMENTS: PAT,OR 06/04/06Precautions*: NOT APPLICABLE HCT 36.9 % (Abnormal) Range: 37-47 HGB 12.9 g/dL (Normal) Range: 12.0-16.0 MCH 33.4 pg (Abnormal) Range: 27.0-32.0 MCHC 34.8 g/dL (Normal) Range: 32-36 MCV 95.8 fL (Normal) Range: 81-99 PLT 250 K/mm3 (Normal) Range: 150-450 RBC 3.85 {M/mm3} (Abnormal) Range: 4.2-5.4 RDW 13.9 % (Normal) Range: 11.6-14.6 WBC 5.3 K/mm3 (Normal) Range: 4.4-11.0 01-Brl-480500:18 Urinalysis, Office (82573) UA - BILIRUBIN Negative (Normal) UA - BLOOD Non Hemolyzed Trace (Normal) UA - GLUCOSE Negative (Normal) UA - KETONES Negative mg/dL (Normal) UA - LEUKOCYTE ESTERASE Negative (Normal) UA - NITRITE Negative (Normal) UA - PH 5.0 (Normal) UA - PROTEIN Negative mg/dL (Normal) UA - SPECIFIC GRAVITY 1.025 (Normal) URINE UROBILINGN FILOMENA TIMED Normal mg/dL (Normal) 95-Sje-667247:02 Urinalysis, Office (57243) UA - BILIRUBIN Negative (Normal) UA - BLOOD Non Hemolyzed Trace (Normal) UA - GLUCOSE Negative (Normal) UA - KETONES Negative mg/dL (Normal) UA - LEUKOCYTE ESTERASE Negative (Normal) UA - NITRITE Negative (Normal) UA - PH 5.0 (Normal) UA - PROTEIN Negative mg/dL (Normal) UA - SPECIFIC GRAVITY 1.010 (Normal) URINE UROBILINGN FILOMENA TIMED 2 mg/dL (Normal) 21-Xop-720818:46 Urinalysis, Office (92219) UA - BILIRUBIN Negative (Normal) UA - BLOOD Hemolyzed Large (Normal) UA - KETONES Negative mg/dL (Normal) UA - LEUKOCYTE ESTERASE Negative (Normal) UA - NITRITE Negative (Normal) UA - PH 5.0 (Normal) UA - PROTEIN Negative mg/dL (Normal) UA - SPECIFIC GRAVITY 1.015 (Normal) URINE UROBILINGN FILOMENA TIMED Normal mg/dL (Normal) 69-Wvm-33751:00 CULTURE, URINE Comments: The date and/or time [...] $$$ >=256 R TRIMETHOPRIM/SULFAMETHOXAZ $$ <=10 S 8-Rhp-903207:05 CBCD,SMEAR DIFF BAND 1 % (Normal) Range: [...] 0.2 EU/dl (Normal) Range: 0.2 - 1.0 3-Bxb-117310:05 TSH 3.47 {uIU/mL} (Normal) Range: 0.34-4.82 Plan of Care Name Dates Details Instructions Need for prophylactic vaccination and inoculation against [...] Continue Current Prescription(s) Indication: Hypertension Planned Observations TSH (64211)Indication: Abnormal TSH On: :44 Request T4, FREE (THYROXINE) (82501)Indication: Abnormal TSH On: :44 Request T3, FREE (TRIDOTHYRONINE) (60915)Indication: Abnormal TSH On: :44 Request TSH (THYROID STIMULATING HORMONE) (94984)Indication: Acquired hypothyroidism On: 39-Hvv-315817:45 Request OCCULT BLOOD FECES SCREEN (88606)Indication: Diarrhea, unspecified type On: 3-Rtn-595412:04 Request Lipid Panel (96755)Indication: Mixed hyperlipidemia On: 58-Ypi-253723:47 Request Comments: september 2016 HEPATIC FUNCTION PANEL (03342)Indication: Mixed hyperlipidemia On: 56-Urt-656535:12 Request TSH (40525)Indication: Acquired hypothyroidism On: 10-Bgx-843694:08 Request TSH (THYROID STIMULATING HORMONE) (45518)Indication: Acquired hypothyroidism On: 01-Xax-053328:25 Request Vitamin D Hydroxy (73128)Indication: VITAMIN D DEFICIENCY (Renamed from Avitaminosis D) On: :23 Request METABOLIC PANEL, COMPREHENSIVE (44846)Indication: Hypertension On: 66-Dsk-742091:23 Request LIPID PANEL (55533)Indication: Mixed hyperlipidemia On: 94-Zyz-326739:23 Request Metabolic Panel, Comprehensive (26683)Indication: Hypertension On: 10-Ufj-678922:01 Request Lipid Panel (55639)Indication: Mixed hyperlipidemia On: 92-Xgi-310491:01 Request TSH (86081)Indication: Acquired hypothyroidism On: 73-Nbg-058222:01 Request CALCIFEDIOL (26194)Indication: Acquired hypothyroidism On: 14-Asr-042717:01 Request METABOLIC PANEL, COMPREHENSIVE (24242)Indication: Hypertension On: 73-Ldq-338150:32 Request TSH (69356)Indication: Acquired hypothyroidism On: 21-Jnj-385429:31 Request LIPID PANEL (64779)Indication: Mixed hyperlipidemia On: 61-Gwh-853012:31 Request HEPATIC FUNCTION PANEL (19260)Indication: Mixed hyperlipidemia On: 80-Mtw-274145:09 Request LIPID PANEL (26957)Indication: Mixed hyperlipidemia On: 64-Ybx-647385:09 Request URINE ANN CULTURE-FILOMENA COL COUNT (28911)Indication: Low back pain On: 37-Kao-655803:33 Request CBC WITH MANUAL DIFF (94176)Indication: Hypertension On: 82-Jgu-812497:06 Request METABOLIC PANEL, COMPREHENSIVE (24532)Indication: Hypertension On: 53-Wny-392560:06 Request TSH (69295)Indication: Acquired hypothyroidism On: 75-Lzd-839525:06 Request LIPID PANEL (56843)Indication: Mixed hyperlipidemia On: 35-Sin-776686:06 Request URINALYSIS, W/ MICRO (36445)Indication: Hypertension On: 16-Ads-567368:12 Request TSH (62523)Indication: Acquired hypothyroidism On: 38-Haj-256368:12 Request METABOLIC PANEL, COMPREHENSIVE (87797)Indication: Hypertension On: 50-Lhe-683191:12 Request LIPID PANEL (33663)Indication: Mixed hyperlipidemia On: 64-Xmk-392295:12 Request HEPATIC FUNCTION PANEL (35926)Indication: Mixed hyperlipidemia On: 1-Vqx-537939:03 Request LIPID PANEL (99864)Indication: Mixed hyperlipidemia On: 2-Xgy-195938:03 Request LIPID PANEL (93779)Indication: Mixed hyperlipidemia On: 9-Ewc-407218:50 Request TSH (70793)Indication: Acquired hypothyroidism On: 4-Fwl-486811:49 Request METABOLIC PANEL, COMPREHENSIVE (76424)Indication: Hypertension, benign On: 5-Csn-874540:49 Request URINE ANN CULTURE (FILOMENA COL COUNT) (04699)Indication: Pain in unspecified hip On: 15-Njo-453317:16 Request TSH (00544)Indication: Acquired hypothyroidism On: 11-Hsy-385169:51 Request METABOLIC PANEL, COMPREHENSIVE (21029)Indication: Hypertension, benign On: 0-Thy-303196:58 Request HEPATIC FUNCTION PANEL (59977)Indication: Mixed hyperlipidemia On: 8-Zme-295020:58 Request LIPID PANEL (50536)Indication: Mixed hyperlipidemia On: 8-Agw-249705:58 Request TSH (04870)Indication: Acquired hypothyroidism On: 1-Zph-252944:54 Request HEPATIC FUNCTION PANEL (15031)Indication: Mixed hyperlipidemia On: 96-Syp-415511:40 Request LIPID PANEL (93963)Indication: Mixed hyperlipidemia On: 51-Vel-436463:40 Request Anti-TPO Antibody (11845)Indication: Abnormal TSH On: 23-Flj-462438:31 Request T4, TOTAL (68641)Indication: Abnormal TSH On: 98-Vfb-511614:30 Request T4, FREE (87558)Indication: Abnormal TSH On: 08-Rud-243505:30 Request TSH (83446)Indication: Abnormal TSH On: 36-Lcg-570140:30 Request CBC WITH MANUAL DIFF (92439)Indication: Hypertension, benign On: :29 Request METABOLIC PANEL, COMPREHENSIVE (83133)Indication: Hypertension, benign On: :28 Request Lipase (04604)Indication: Nausea On: :02 Request Amylase (58071)Indication: Nausea On: 2-Vhx-964806:02 Request URINALYSIS W/O MICRO (90174)Indication: Dizziness and giddiness On: :58 Request TSH (59193)Indication: Dizziness and giddiness On: :58 Request METABOLIC PANEL, COMPREHENSIVE (88008)Indication: Dizziness and giddiness On: :57 Request CBC WITH MANUAL DIFF (60797)Indication: Dizziness and giddiness On: :57 Request HEPATIC FUNCTION PANEL (96562)Indication: Mixed hyperlipidemia On: :59 Request LIPID PANEL (92842)Indication: Mixed hyperlipidemia On: :59 Request URINALYSIS W/O MICRO (37040)Indication: Hypertension, benign On: 9-Kqq-833876:05 Request TSH (57920)Indication: Hypertension, benign On: 7-Qgg-885878:05 Request CBC WITH MANUAL DIFF (25574)Indication: Hypertension, benign On: 9-Gju-926001:05 Request METABOLIC PANEL, COMPREHENSIVE (01651)Indication: Hypertension, benign On: 3-Sau-072138:05 Request LIPID PANEL (74714)Indication: Mixed hyperlipidemia On: 8-Urc-233292:04 Request HEPATIC FUNCTION PANEL (51308)Indication: Mixed hyperlipidemia On: 0-Crb-264008:04 Request URINE ANN CULTURE-IDENTIFICATN (17327)Indication: Hematuria On: 30-Efb-132194:57 Request URINALYSIS (19764)Indication: Hematuria On: 21-Nel-051753:57 Request URINE ANN CULTURE-IDENTIFICATN (39521)Indication: Hematuria On: 38-Amq-127915:56 Request Comments: if neg- ct of abdomen and pelvis URINALYSIS (34541)Indication: Hypertension On: 46-Jee-216227:04 Request TSH (44159)Indication: Hypertension On: 27-Njv-780984:03 Request CBC WITH MANUAL DIFF (02923)Indication: Hypertension On: :03 Request METABOLIC PANEL, COMPREHENSIVE (67036)Indication: Hypertension On: : Request LIPID PANEL (44148)Indication: Mixed hyperlipidemia On: : Request Planned Procedures Flu Vaccine (Quadrivalent) On: 17-Feb-2018 Intent 97226Eq: Belinda May Comments: Lot #[id number]-L dltd, IMAmount: 0.5mlVIS reviewed and ABN signedgiven by:Belinda May, CCMAVIS reviewed and ABN signed CHEST XRAY, PA & LATERAL On: 10-Nov-2017 Intent (81827)By: Louise Darby Spirometry (48399)By: On: 10-Nov-2017 Intent Louise Darby Comments: Normal X-RAY RIGHT WRIST, 3+ VIEWS On: 01-Sep-2017 Intent (40375)By: Lilliana Mishra DO Tad DO, Lilliana Radiology - Wrist - LeftBy: On: 01-Sep-2017 Intent Tad RIOS, Lilliana Tad DO, Lilliana X-RAY OF COCCYX, TWO VIEWS On: 01-Sep-2017 Intent (75540)By: Lilliana Mishra DO Tad DO, Lilliana PNEUM VAC ADLT/IMUMNOSPR, On: 29-Apr-2017 Intent SBC/INTRM (13630)By: Tad Comments: pneumovax prefilled syringe injectionlot: [id number]: 07/05/2018L DELT IMpt tolerated wellAD MILITARY EXCHANGE WIRELESS MANAGER DO, Lilliana Tad DO, Lilliana Flu Vaccine (Quadrivalent) On: 29-Jan-2017 Intent 17883Ex: Lilliana Mishra DO Comments: lot: [id number]: 09/01/17ite/route: L david, IMamt: 0.5mlVIS and ABN signed when applicableChelsALISHA mercedes DOLilliana ORTHOSTATIC BLOOD PRESSURE On: 22-Aug-2016 Intent ASSESSMENT (60180)By: Wilner, Comments: Negative Louise ULTRASOUND AORTA (44749)By: On: 18-Jul-2016 Intent Lilliana Mishra DO TadLilliana chan DO EMGBy: Amy Coppola CNP On: 18-Oct-2014 Intent Nerve ConductionBy: Abdon MAGAÑA, On: 18-Oct-2014 Intent Amy Price Radiology - Wrist - RightBy: On: 18-Oct-2014 Intent Amy Coppola CNP FLU VAC, SPLIT, >3 YEARS, On: 12-Jan-2013 Intent INTRAMUSC (82044)By: Nathan, Comments: Lot:[id number]:Dose:0.5mLRoute:IMSite:L DltdGiven By:YOUNG Wyatt IMMUNIZ ADMNIN, 1 VAC, On: 12-Jan-2013 Intent SNGL/COMBO (95138)By: Yoselin Evans Eprescribed prescriptions On: 04-Jan-2013 Intent (G8553)By: Mignon Irving EKG (08675)By: Regina, On: 06-Apr-2012 Intent Mercedez Comments: ekg showed normal sinus rhythym, normal axis, no acute st/t wave changes Eprescribed prescriptions On: 06-Apr-2012 Intent (G8553)By: Mercedez Tapia Eprescribed prescriptions On: 17-Feb-2012 Intent (G8553)By: Louise Hahn LPN FLU VAC, SPLIT, >3 YEARS, On: 02-Dec-2011 Intent INTRAMUSC (71810)By: Regina, Comments: Lot #[id number]-5/30/13Site-left deltoidgiven by: MACO Monge Radiology - Hip - BilateralBy: On: 02-Dec-2011 Intent Mayra Pérez DO IMMUNIZ ADMNIN, 1 VAC, On: 02-Dec-2011 Intent SNGL/COMBO (41282)By: Mercedez Tapia ZOSTER VACC, [place] (52104)By: On: 08-Aug-2011 Intent Mercedez Tapia Eprescribed prescriptions On: 29-Jul-2011 Intent (G8553)By: Beto RIOS Mayra A EKG (71925)By: Regina, On: 01-Apr-2011 Intent Mercedez Comments: ekg showed normal sinus rhythym, normal axis, no acute st/t wave changes FLU VAC, SPLIT, >3 YEARS, On: 01-Apr-2011 Intent INTRAMUSC (52858)By: Regina, Comments: alicia Mercedez TDAP VACCINE >7 IM (41519)By: On: 31-Jul-2010 Intent Mast Loly COYLE Comments: Lot #:[id number] date: 05/27Amount given: 0.5 mlRoute: IMSite given: left deltoidGiven by: Son Marrero RN FLU VAC, SPLIT, >3 YEARS, On: 20-Feb-2010 Intent INTRAMUSC (11247)By: Mercedez Tapia IMMUNIZ ADMNIN, 1 VAC, On: 20-Feb-2010 Intent SNGL/COMBO (32554)By: Regina, Comments: Lot #[id number]-9/11Site-L armDose0.5mlgiven by:SKYLA Newsome Radiology - Lumbar SpineBy: On: 25-Jul-2009 Intent Fast DO, Mayra A EKG (45539)By: Regina, On: 13-Feb-2009 Intent Mercedez Comments: ekg showed normal sinus rhythym, normal axis, no acute st/t wave changes Radiology - Hip - RightBy: On: 23-Jun-2007 Intent Fast DO, Mayra A Radiology - Lumbar SpineBy: On: 23-Jun-2007 Intent Fast DO, Mayra A FLU VAC, SPLIT, >3 YEARS, On: 03-Feb-2007 Intent INTRAMUSC (33622)By: Catia Clement Comments: Lot #[id number] Exp-09/14/07Site-left deltoid Dose0.5ccgiven by Paul Clement LPN IMMUNIZ ADMNIN, 1 VAC, On: 03-Feb-2007 Intent SNGL/COMBO (62392)By: Catia Clement EKG (26046)By: Regina, On: 14-May-2006 Intent Mercedez Comments: done-jjpekg showed normal sinus rhythym, normal axis, no acute st/t wave changes CT - Abdomen & Pelvis Stone On: 07-Apr-2006 Intent ProtocolBy: Fast DO, Mayra A Instructions Name Dates Details Need for prophylactic vaccination and inoculation against [...] inoculation against influenza Encounters Office Visit On: 17-Feb-2018 14:21 Encounter Reason: [...] compliant with instructions. 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- dilshad- so feels like needs to increase [...] of wart and doesnt want to see vehicle detailer- she is up to 5 mg of [...] Follow up, Labor atory Test Results: saw Benny estrada colonsocopy-radha - has family hx of thyroid- having [...] for Follow up, Laboratory Test Results: saw Benny estrada biggerssocopbradyzoila Jimenez has family hx of thyroid- having [...] checking at home- mood is good- with / lexapro-- - no gerd -- taking the [...] is significantly improved-- now also left geovanna anisa in-- she thinks because she was nonwtbearing [...] Encounter Diagnosis: Hypertension,benign(401.1), travel issues- she nneded Sprig signed for going to cl End: 08-May-2007 [...] and is always 120/70-- had cystoscopy at [facility] and he didnt find anythingEncounter Diagnosis: Hyperlipidemia, [...] Internal Medicine Payers [employer]/MedicareDorene Miller; a guarantor
--- OUTSIDE RECORDS SUMMARY | 2018-06-05 22:07 | XMS RPT_ITS | Continuity of Care Document ---
:1950 Author Organization [facility] Address [facility] [facility] [address] [place] [address] Phone Care Team Providers Name Role Phone Tad DO Lilliana Unavailable Flako SALAZAR, Yahaira Kuhn Unavailable Beto Mayra RIOS Unavailable Dimitris SALAZAR, Dr. Alex Dunlap Unavailable Pascual Knutson Unavailable MACO Hahn Unavailable Unavailable Louise Darby Unavailable Unavailable [place], [place] Unavailable Unavailable Gravius, Belinda Unavailable Unavailable Unavailable [...] days Quantity: 18 {Tablet} Refills: 0 Ordered:02-Feb-2018 Luoise Hahn LPN Start : 10-Nov-2017 End : 02-Feb-2018 Inactive Comments:3 Tablets Daily x 3 days,2 Tablets Daily x 3 days,1 Tablet Daily x 3 days.Take with food. RASPBERRY CONCENTRATE (Concentrate) qd Inactive SINGULAIR, 10MG (Oral Tablet) 1 QD for 0 days Refills: 0 Ordered:25-Jul-2009 Chapis Tapiactive ZOSTAVAX, 63266PFI/0.65ML (Subcutaneous Solution Reconstituted) 1 (one) For Solution [...] and Lateral Result: Comments: See Note; NOTES: [facility] Imaging Services [address] [place] [address]15 Chest PA and Lateral MR#: [id number] Acct: [id number] Name: PAMELA GUTIERREZ Rep #: [id number] : 1950 F 67 From: Dylan Amado MD PCP: Lilliana Mishra DO Status: REG CLI Study: Chest PA and Lateral Date of Exam: 11/10/17 Exam# [id number] Ordering Dr: Louise Darby SETTER UP-C STUDY: X- RAY CHEST REASON FOR EXAM: [...] Fax CC: LAZARO Darby; Lilliana Mishra DO Reinsurance Claims Analyst: Signed 01-Sep-2017 Sacrum-Coccyx min 2 Views Result: Comments: See Note; NOTES: [facility] Imaging Services [address] [place] [address] Sacrum-Coccyx min 2 Views MR#: [id number] Acct: [id number] Name: PAMELA GUTIERREZ Rep #: [id number] : 1950 F 67 From: Mikael Alexander MD PCP: Lilliana Mishra DO Status: REG CLI Study: Sacrum-Coccyx min 2 Views Date of Exam: 09/01/17 Exam# [id number] Ordering Dr: Lilliana Mishra DO UDY: X-RAY [...] Service support , CC: Lilliana Mishra DO Reinsurance Claims Analyst: Signed 01-Sep-2017 Wrist min 3 Views Result: Comments: See Note; NOTES: [facility] Imaging Services [address] [place] [address] Wrist min 3 Views MR#: [id number] Acct: [id number] Name: PAMELA GUTIERREZ Rep #: [id number] : 1950 F 67 From: Mikael Alexander MD PCP: Lilliana Mishra DO Status: REG CLI Study: Wrist min 3 Views Date of Exam: 09/01/17 Exam# [id number] Ordering Dr: Lilliana Mishra DO STUDY: X-RAY [...] Service support , CC: Lilliana Mishra DO Reinsurance Claims Analyst: Signed 01-Sep-2017 Wrist min 3 Views Result: Comments: See Note; NOTES: [facility] Imaging Services [address] [place] [address] Wrist min 3 Views MR#: [id number] Acct: [id number] Name: PAMELA GUTIERREZ Rep #: [id number] : 1950 F 67 From: Mikael Alexander MD PCP: Lilliana Mishra DO Status: REG CLI Study: Wrist min 3 Views Date of Exam: 09/01/17 Exam# [id number] Ordering Dr: Lilliana Mishra DO STUDY: X-RAY [...] Service support , CC: Lilliana Mishra DO Reinsurance Claims Analyst: Signed 08-Mar-2017 Urgent Care Visit Report Result: Comments: See Note; NOTES: [address] [place] [address] OFFICE VISIT Date of Service: 03/08/17 MR#: [id number] Acct: [id number] Name: PAMELA GUTIERREZ Re p #: [id number] : 1950 Provider: ANISA Santamaria Age/Sex: 66/F [...] mg PO DAILY 07/11/14 [History Confirmed 03/08/17] rmthroqdllizxfz-nrauytflheskdfd-JI 2 mg- 30 mg-10 mg/5 mL syrup [...] Cough R05 03/08/17 1413 <Electronically signed by lAejo LANGE> Date Alejo LANGE Cosigner Signature: Date (if applicable) CC: 19-Jul-2016 Aorta Result: Comments: See Note; NOTES: [facility] Imaging Services [address] [place] [address] Verdana 4d Aorta MR#: [id number] Acct: [id number] Name: PAMELA GUTIERREZ Rep #: [id number] D OB: 1950 F 65 From: Hi Reynoso MD PCP: Lilliana Mishra DO Status: REG CLI Study: Aorta Date of Exam: 07/19/16 Exam# [id number] Ordering Dr: Lilliana Mishra DO PROCEDURES: ULTRASOUND [...] Hi Reynoso MD at 9:24 EDT Tel [phone], Service support , CC: Lilliana Mishra DO Reinsurance Claims Analyst: Signed 18-Oct-2014 Wrist min 3 Views Result: Comments: See Note; NOTES: [facility] Imaging Services [address] [place] [address] Radiology Report MR#: [id number] Acct: [id number] Name: PAMELA GUTIERREZ Rep #: [id number] : 1950 F 64 From: Hi Reynoso MD PCP: Mayra Pérez DO Status: REG CLI Study: Wrist min 3 Views Date of Exam: 10/18/14 Exam# [id number] Ordering Dr: Amy Coppola STUDY: X-RAY - [...] Hi Reynoso MD at 16:02 EDT Tel [phone], Service support [phone], RAD/Wrist mi n 3 Views IMPRESSION: Normal x-ray examination of the wrist. Electronically Signed: Hi Reynoso MD at 16:02 EDT Tel [phone], Service support [phone], CC: Amy Coppola; Mayra Pérez DO Reinsurance Claims Analyst: Signed 17-Jul-2014 Emergency Department Summary Result: Comments: See Note; NOTES: [facility] Medical Records Department [address] [place] [address] Emergency Department Summary MR#: [id number] Acct: [id number] Name: PAMELA GUTIERREZ Rep #: [id number] : 1950 63 From: Ronald Payne MD [...] medicine here to go. She will use mpch-xrl-pokpiks ice, elevation may help. Follow up within [...] ht knee contusion. MD Neema Berry C: [employer] Ronald Langston MD T: NTS JOB: [id number] 07/17/14 1528 <Electronically signed by Roanld Payne MD> Date Ronald Payne MD CC: Mayra Pérez DO; Ronald Langston MD; [employer] Date Dictated: 07/11/142249 Date Transcribed: 07/11/142249 Reinsurance Claims Analyst: Signed 11-Jul-2014 Discharge Instruction Result: Comments: See Note; NOTES: [facility] Medical Records Department [address] [facility] [place] [address] Discharge Instruction 07/11/142130 MR#: [id number] Acct: [id number] Name: PAMELA GUTIERREZ Rep #: [id number] : 1950 63 From: Ronald Payne MD [...] Doctors Registry ) or report to the [facility] Emergency Room. Call 911 if necessary. 07/11/142131 <Electronically signed by Ronald Payne MD> Date Ronald Payne MD Cos igner Signature (If Indicated): Date CC: Mayra Pérez DO 11-Jul-2014 Wrist min 3 Views Result: Comments: See Note; NOTES: [facility] Imaging Services [address] [place] [address] Radiology Report MR#: [id number] Acct: [id number] Name: PAMELA GUTIERREZ Rep #: [id number] : 1950 F 63 From: Hi Reynoso MD PCP: Mayra Pérez DO Status: DEP ER Study: Wrist min 3 Views Date of Exam: 07/11/14 Exam# [id number] Ordering Dr: Ronald Payne MD STUDY: X-RAY [...] Hi Reynoso MD at 9:18 EDT Tel [phone], Service support [phone], RAD/Wrist min 3 Views IMPRESSION: I suspect a nondisplaced linear fracture involving the distal radial metaphysis with extension to the articular surface. Soft tissue swelling. Electronically Signed: Hi Reynoso MD at 9:18 EDT Tel [phone], Service support [phone], CC: Mayra Pérez DO; Ronald Payne MD Reinsurance Claims Analyst: Signed 22-Oct-2013 EKG (73516) Comments: ekg showed normal sinus rhythym, normal axis, no acute st/t wave changes biphasic twave otherwise no change Result: [MEASUREMENTS ANALYSIS] Date of Test: 10/22/2013 14:05:39; Heart Rate: 67; LA Interval: 154; QRS: 90; QT Interval: 388; Corrected QT Interval (QTc): 400; P Wave Mars: 31; QRS Wave Mars: -15; T Wave Mars : 1; Blood Pressure: 112/72 [ECG DIAGNOSTIC STATEMENTS] Date of Test: 10/22/2013 14:05:39; Summary: Sinus Rhythm - Diffuse nonspecific T-abnormality. ABNORMAL Immunization Name Dates Details Influenza (3 years and up) on: 03-Feb-2007 Comments: Lot #[id number] Exp-09/14/07Site-left deltoid Dose0.5ccgiven by Paul Clement LPN [...] kg/m2 Body Surface Area Calculated 2.03 m2 23-Req-768861:56 Temperature 97.6 f Comments: Method: Temporal Pulse [...] 0.00 cm Results Date Description Value Details 07-Nlz-322812:40 TSH (65509) Comments: PATIENT WAS FASTINGPERFORMED BY: [employer] [facility].To[address] [id number] BY: [facility].To mSpoke [place] [facility] [place] [id number]; fu 09-01-17 KF TSH 0.340 {uIU/mL} (Abnormal) Range: 0.450-4.500 :40 CALCIFIDIOL (53273) VIT D Comments: PATIENT WAS FASTINGPERFORMED BY: [employer] [id number] BY: [employer]ipGive70 [facility] [id number] 25 Vitamin D, 25-Hydroxy 37.6 ng/mL (Normal) Range: 30.0-100.0 Comments: Vitamin D deficiency has been defined by the [place] of[place] and an Endocrine Society practice guideline as alevel of serum 25-OH vitamin D less than 20 ng/mL (1,2).The Endocrine Society went on to further define vitamin Dinsufficiency as a level between 21 and 29 ng/mL (2).1. IOM ([place] of Medicine). 2010. Dietary reference intakes for calcium and D. [place]: The National Academies Press.2. Fletcher MF, Edgardo NC, Dina KAPLAN, et al. Evaluation, treatment, and prevention of vitamin D deficiency: an Endocrine Society clinical practice guideline. JCEM. 2010; 96(7):1911-30. 73-Dfx-617874:40 LIPOPROTEIN, BLD, BY NMR Comments: PATIENT WAS FASTINGPERFORMED BY: [facility].To[address] [id number] BY: ipatter.[employer] [facility].To Iqchzz9963 [address] [facility] [place] [id number] (09053) LP-IR Score 71 (Abnormal) Comments: INSULIN RESISTANCE MARKER <--Insulin Sensitive Insulin Resistant--> Percentile in Reference PopulationInsulin Resistance ScoreLP-IR Score Low 25th 50th 75th High <27 27 45 63 >63LP-IR Score is inaccurate if patient is non-fasting. .The LP-IR score is a laboratory developed i [facility] that has beenassociated with insulin resistance and [...] were developed and their performance characteristicsdetermined by [employer]. These assays have not been cleared by [...] 1600 - 2000 Very High > 2000 47-Foy-492334:40 METABOLIC PANEL, Comments: PATIENT WAS FASTINGPERFORMED BY: BN [facility] Srblnclcaj4218 [facility] [id number] BY: CB [facility] Ovrydq0988 [facility] [id number] COMPREHENSIVE (61301) ALT (SGPT) 16 [iU]/L (Normal) Range: 0-32 [...] 8-27 Glucose 85 mg/dL (Normal) Range: 65-99 52-Zeb-728760:40 CBC with auto diff Comments: PATIENT WAS FASTINGPERFORMED BY: [employer] 416947 [facility] [id number] BY: GaelectricSparrow [facility] Hospital6370 [facility] [id number] (16668) Immature Grans (Abs) 0.0 {x10E3/uL} (Normal) Range: [...] 3.77-5.28 WBC 4.8 {x10E3/uL} (Normal) Range: 3.4-10.8 51-Xeb-250914:43 Microscopic Examination Comments: PATIENT WAS FASTINGPERFORMED BY: [facility]lectricSparrow [facility]6370 [facility] [id number] Bacteria None seen (Normal) Mucus Threads Present (Normal) Epithelial Cells (non renal) 0-10 {/hpf} (Normal) Range: 0 - 10 RBC None seen {/hpf} (Normal) Range: 0 - 2 WBC 0-5 {/hpf} (Normal) Range: 0 - 5 :43 CALCIFEDIOL (61070) Comments: PATIENT WAS FASTINGPERFORMED BY: [employer] Ugtgyz5577 [facility] [id number] Vitamin D, 25-Hydroxy 68.6 ng/mL (Normal) Range: 30.0-100.0 Comments: Vitamin D deficiency has been defined by the [place] of[place]icine and an Endocrine Society practice guideline as alevel of serum 25-OH vitamin D less than 20 ng/mL (1,2).The Endocrine Society went on to further define vitamin Dinsufficiency as a level between 21 and 29 ng/mL (2).1. IOM ([place] of [place]). 2010. Dietary reference intakes for calcium and D. [place]: The National Academies Press.2. Fletcher MF, Edgardo NC, Dina KAPLAN, et al. Evaluation, treatment, and prevention of vitamin D deficiency: an Endocrine Society clinical practice guideline. JCEM. 2010; 96(7):1911-30. :43 TSH (86108) Comments: PATIENT WAS FASTINGPERFORMED BY: [employer].ItKindred Hospital at WayneWcvcbp1016 [facility] [id number] TSH 4.800 {uIU/mL} (Abnormal) Range: 0.450-4.500 :43 URINALYSIS, W/ MICRO (99371) Comments: PATIENT WAS FASTINGPERFORMED BY: [facility]Spar[facility]6370 [facility] [id number] Microscopic Examination See below: (Normal) Comments: Microscopic was indicated and was performed. Nitrite, Urine Negative (Normal) Urobilinogen,Semi-Qn 0.2 mg/dL (Normal) Range: 0.2-1.0 Bilirubin Negative (Normal) Occult Blood 1+ (Abnormal) Ketones Negative (Normal) Glucose Negative (Normal) Protein Negative (Normal) WBC Esterase Trace (Abnormal) Appearance Clear (Normal) Urine-Color Yellow (Normal) pH 6.0 (Normal) Range: 5.0-7.5 Specific [place] 1.013 (Normal) Range: 1.005-1.030 :43 MICROALBUMIN: CREATININE RATIO Comments: PATIENT WAS FASTINGPERFORMED BY: [employer] Obemje9487 [facility] [id number] (78927) AND (51145) Microalb/Creat Ratio <4.4 {mg/g_creat} (Normal) Range: 0.0-30.0 Microalbumin, Urine <3.0 ug/mL (Normal) Creatinine, Urine 67.5 mg/dL (Normal) :43 METABOLIC PANEL, COMPREHENSIVE Comments: PATIENT WAS FASTINGPERFORMED BY: [employer]70 [address] [facility] InstitutePOPS WorldwideNov[facility] [id number] (04734) ALT (SGPT) 21 [iU]/L (Normal) Range: 0-32 [...] Glucose, Serum 87 mg/dL (Normal) Range: 65-99 70-Pvp-723312:43 LIPID PANEL (25008) Comments: PATIENT WAS FASTINGPERFORMED BY: We[employer].ItKindred Hospital at WayneArtylz9889 [facility] [id number] LDL/HDL Ratio 2.1 {ratio_units} (Normal) Range: 0.0-3.2 Comments: LDL/HDL Ratio Men Women 1/2 Avg.Risk 1.0 1.5 Av g.Risk 3.6 3.2 2X Avg.Risk 6.2 5.0 3X Avg.Risk 8.0 6.1 LDL Cholesterol Calc 81 mg/dL (Normal) Range: 0-99 VLDL Cholesterol Jorge 20 mg/dL (Normal) Range: 5-40 HDL Cholesterol 38 mg/dL (Abnormal) Triglycerides 102 mg/dL (Normal) Range: 0-149 Cholesterol, Total 139 mg/dL (Normal) Range: 100-199 59-Faw-120665:43 CBC W/AUTO DIFF WBC (23366) Comments: PATIENT WAS FASTINGPERFORMED BY: L[employer]O Jmbjwx7677 [facility] [id number] Immature Grans (Abs) 0.0 {x10E3/uL} (Normal) Range: [...] {x10E3/uL} (Normal) Range: 3.4-10.8 :33 C-REACTIVE PROTEIN (15101) Comments: PATIENT NOT FASTINGPERFORMED BY: We[employer].ItKindred Hospital at WayneBdlryk2333 [facility] [id number] C-Reactive Protein, Quant 0.7 mg/L (Normal) Range: 0.0-4.9 :33 SED RATE ERYTHROCYTE (74368) Comments: PATIENT NOT FASTINGPERFORMED BY: We[employer].ItKindred Hospital at WayneYmgvku6386 [facility] [id number] Sedimentation Rate-[facility] Hospitalren 3 mm/h (Normal) Range: 0-40 :33 CBC, PLATELETS & AUT DIFF Comments: PATIENT NOT FASTINGPERFORMED BY: We[employer].ItKindred Hospital at WayneQanlaz8330 [facility] [id number] Information: [id number] (91636) Immature Grans (Abs) 0.0 {x10E3/uL} (Normal) Range: [...] 3.77-5.28 WBC 5.6 {x10E3/uL} (Normal) Range: 3.4-10.8 3-Gtm-250045:33 METABOLIC PANEL, COMPREHENSIVE Comments: PATIENT NOT FASTINGPERFORMED BY: LabCoKindred Hospital at WayneGcmpyc6995 [facility] [id number] (43070) ALT (SGPT) 18 [iU]/L (Normal) Range: 0-32 [...] mg/dL (Normal) Range: 65-99 :26 ANN CULTURE-STOOL (21064) Comments: PATIENT NOT FASTINGPERFORMED BY: [employer] mSpoke [facility] [id number] Information: SRC:ST SRC:ST E coli Shiga Toxin EIA Negative (Normal) Result 1 NCI (Normal) Comments: No Campylobacter species isolated. Campylobacter Culture Final report (Normal) Result 1 NSS (Normal) Comments: No Salmonella or Shigella recovered. Salmonella/Shigella Screen Final report (Normal) :26 Clostridium difficile Toxin Comments: PATIENT NOT FASTINGPERFORMED BY: [employer] Isryhr8376 [facility] [id number] A+B, EIA (79003) C difficile Toxins A+B, EIA Negative (Normal) :26 LEUKOCYTE COUNT, FECAL (06157) Comments: PATIENT NOT FASTINGPERFORMED BY: [employer] Acfhuk0258 [facility] [id number] Result 1 NWBC (Normal) Comments: No white blood cells seen. White Blood Cells (WBC), Final report (Normal) Stool :26 OVA & PARASITE DIR SMEAR Comments: PATIENT NOT FASTINGPERFORMED BY: [employer] Pxbxkj7671 [facility] [id number] (96151) Result 1 NOCP (Normal) Comments: No ova, cysts, or parasites seen. Ova + Parasite Exam Final report (Normal) Comments: These results were obtained using wet preparation(s) and trichromestained smear. This test does not include testing for Cryptosporidiumparvum, Cyclospora, or Microsporidia. 36-Kbs-773139:44 TSH (93329) Comments: PATIENT WAS FASTINGPERFORMED BY: [employer] Mwunhd5999 [facility] [id number] TSH 1.290 {uIU/mL} (Normal) Range: 0.450-4.500 :44 CBC W/AUTO DIFF WBC (76786) Comments: PATIENT WAS FASTINGPERFORMED BY: We[employer].ItKindred Hospital at WayneTbcgzm2881 [facility] [id number] Immature Grans (Abs) 0.0 {x10E3/uL} (Normal) Range: [...] PANEL, COMPREHENSIVE Comments: PATIENT WAS FASTINGPERFORMED BY: [facility]6370 [facility] [id number] (07142) ALT (SGPT) 10 [iU]/L (Normal) Range: 0-32 [...] Glucose, Serum 91 mg/dL (Normal) Range: 65-99 57-Ypi-436301:44 LIPID PANEL (37437) Comments: PATIENT WAS FASTINGPERFORMED BY: LabCoKindred Hospital at WaynePzmuxo0267 [facility] [id number]; non-emergent till apt tomorrow LDL/HDL Ratio 3.3 [...] 246 mg/dL (Abnormal) Range: 100-199 :59 TSH (36871) Comments: PATIENT WAS FASTINGPERFORMED BY: [facility]6370 [facility] [id number] TSH 0.081 {uIU/mL} (Abnormal) Range: 0.450-4.500 :59 Vitamin D Hydroxy (17642) Comments: PATIENT WAS FASTINGPERFORMED BY: [facility]6370 [facility] [id number] Vitamin D, 25-Hydroxy 42.0 ng/mL (Normal) Range: 30.0-100.0 Comments: Vitamin D deficiency has been defined by the [place] of[place]icine and an Endocrine Society practice guideline as alevel of serum 25-OH vitamin D less than 20 ng/mL (1,2).The Endocrine Society went on to further define vitamin Dinsufficiency as a level between 21 and 29 ng/mL (2).1. IOM ([place] of Medicine). 2010. Dietary reference intakes for calcium and D. [place]: The National Academies Press.2. Fletcher MF, Edgardo [place], Evangelist-Baldev KAPLAN, et al. Evaluation, treatment, and prevention of vitamin D deficiency: an Endocrine Society clinical practice guideline. JCEM. 2010; 96(7):1911-30. :59 LIPID PANEL (04989) Comments: PATIENT WAS FASTINGPERFORMED BY: [facility]6370 [facility] [id number] Information: 514373,O30687 LDL/HDL Ratio 2.8 {ratio_units} (Normal) Range: 0.0-3.2 [...] Cholesterol, Total 229 mg/dL (Abnormal) Range: 100-199 45-Dnp-585272:56 Allergen, Rast Food Profile Comments: Test performed at:[facility] Vemjnrnfor[address] [place] [address] RAST COMMENT Comment (Normal) Comments: Levels of [...] in this mix are: Blue mussel Fish [place] Shrimp Tuna EGG, WHOLE <0.10 kU/L (Normal) CHOCOLATE <0.10 kU/L (Normal) Comments: Performed at: [address] [id number] Director: Vaughn Garsia MD, Phone: [phone] BEEF <0.10 kU/L (Normal) PORK <0.10 kU/L (Normal) SOYBEAN <0.10 kU/L (Normal) PEANUT <0.10 kU/L (Normal) CORN <0.10 kU/L (Normal) WHEAT <0.10 kU/L (Normal) MILK (COW) <0.10 kU/L (Normal) 01-Ruc-85942:38 URINE ANN CULTURE-FILOMENA COL Comments: PATIENT NOT FASTINGPERFORMED BY: LabCoKindred Hospital at WayneVboctg1589 [facility]St[facility] [id number] Information: SRC:[facility] D72821 COUNT (95809) Antimicrobial MIHEAD (Normal) Comments: S = Susceptible; [...] mL (Abnormal) Urine Final report Culture,Comprehensive (Abnormal) 53-Uuj-511908:11 Urinalysis, Office (19545) UA - LEUKOCYTE ESTERASE Large (Normal) UA - NITRITE Negative (Normal) URINE UROBILINGN FILOMENA TIMED Normal mg/dL (Normal) UA - PROTEIN Negative mg/dL (Normal) UA - PH 5.0 (Normal) UA - BLOOD Non Hemolyzed Moderate (Normal) UA - SPECIFIC GRAVITY 1.015 (Normal) UA - KETONES Negative mg/dL (Normal) UA - BILIRUBIN Negative (Normal) UA - GLUCOSE Negative (Normal) 9-Ozi-765340:33 Comprehensive Metabolic Profil Comments: Test performed at:[facility] [address]he[address] [place], [place] [address] GAP 4 (Abnormal) Range: 5-15 CO2 31.0 [...] 7-18 GLU 89 mg/dL (Normal) Range: 70-110 5-Agk-413607:33 Lipid Profile Comments: Test performed at:[facility] Ytiynfyfjp5871 [place], [place] [address] VLDL 31 mg/dL (Normal) Range: 5-40 LDL [...] 200-240 mg/dL Borderline >240 mg/dL High Risk 5-Eeq-316145:33 Thyroid Stim Hormone (TSH) Comments: Test performed at:[facility] Cnwomynkud0339 [place], [place] [address] TSH 3.03 {uIU/mL} (Normal) Range: 0.358-3.74 :57 TSH (28466) Comments: PATIENT WAS FASTINGPERFORMED BY: [facility] Utlknx1552 [facility] [id number] TSH 7.420 {uIU/mL} (Abnormal) Range: 0.450-4.500 :57 METABOLIC PANEL, Comments: PATIENT WAS FASTINGPERFORMED BY: LabCoKindred Hospital at WayneJqikwo1698 [facility] [id number] Information: 537144,[id number] COMPREHENSIVE (88078) ALT (SGPT) 10 [iU]/L (Normal) Range: 0-32 [...] mg/dL (Normal) Range: 65-99 :57 LIPID PANEL (60891) Comments: PATIENT WAS FASTINGPERFORMED BY: LabCoKindred Hospital at WayneFvqfch7905 [facility] [id number] LDL/HDL Ratio 4.1 {ratio_units} (Abnormal) Range: 0.0-3.2 [...] Cholesterol, Total 280 mg/dL (Abnormal) Range: 100-199 05-Vmc-546382:09 CMP GAP 7 (Normal) Range: 5-15 CO2 [...] 7-18 GLU 85 mg/dL (Normal) Range: 70-110 53-Civ-215415:09 LIPID VLDL 39 mg/dL (Normal) Range: 5-40 [...] CHOL 260 mg/dL (Abnormal) Comments: <200 mg/dL Ixwnncpom773-326 mg/dL Borderline>240 mg/dL High Risk 71-Krp-146785:09 VITD 49.6 mg/mL (Normal) Comments: Vitamin D 25(OH) Status RangeDeficiency <20 ng/mL (50nmol/L)Insuffciency 20 - 30 ng/mL (50 - 75 nmol/L)Sufficiency 30 - 100 ng/mL (75 - 250 nmol/L)Toxicity >100 ng/mL (>250 nmol/L) 97-Xhg-182369:14 CMP GAP 5 (Normal) Range: 5-15 CO2 [...] 7-18 GLU 90 mg/dL (Normal) Range: 70-110 06-Ymz-927759:14 LIPID VLDL 36 mg/dL (Normal) Range: 5-40 [...] CHOL 257 mg/dL (Abnormal) Comments: <200 mg/dL Imnxtuojz461-597 mg/dL Borderline>240 mg/dL High Risk :14 TSH 2.38 {uIU/mL} (Normal) Range: 0.358-3.74 41-Cvj-953135:14 VITD 25.6 mg/mL (Normal) Comments: Vitamin D 25(OH) Status RangeDeficiency <20 ng/mL (50nmol/L)Insuffciency 20 - 30 ng/mL (50 - 75 nmol/L)Sufficiency 30 - 100 ng/mL (75 - 250 nmol/L)Toxicity >100 ng/mL (>250 nmol/L) 33-Tyg-083214:56 Urinalysis, Office (59987) UA - BILIRUBIN Negative (Normal) UA - [...] CHOL 257 mg/dL (Abnormal) Comments: <200 mg/dL Obfofkjnw832-040 mg/dL Borderline>240 mg/dL High Risk :57 TSH 3.02 {uIU/mL} (Normal) Range: 0.358-3.74 :51 LIPID PANEL (80255) Comments: PATIENT WAS FASTINGPERFORMED BY: [employer] [facility] [id number] LDL/HDL Ratio 2.9 {ratio_units} (Normal) Range: 0.0-3.2 [...] METABOLIC PANEL, Comments: PATIENT WAS FASTINGPERFORMED BY: TeleraDublin [place] [id number] Information: 660249,C70997 [facility] (86467) ALT (SGPT) 11 [iU]/L (Normal) Range: 0-32 [...] Glucose, Serum 85 mg/dL (Normal) Range: 65-99 78-Kec-091053:13 HIP, MIN 2 VIEWS Radiology Report See [...] Reynoso M.D.December 03, 2011 at 12:32:11 PM [phone] Signed GP/GP If you are the referring physician and would like to consult with theradiologist who provided this interpretation, please contact Aishwarya Rendon at [phone]. If this radiologist is unavailable, youwill be directed to another radiologist t o assist. If you are a patient with a question regarding this report, pleasecontactyour referring physician directly. Professional Interpretation Provided By: [employer], Phone ,Fax These documents contain legally protected [...] 1240 Sign b y: Hi Reynoso MD 89-Dgp-065496:13 HIP, MIN 2 VIEWS Radiology Report See [...] Nguyen M.D.December 03, 2011 at 12:33:05 PM [id number] Signed GP/GP If you are the referring physician and would like to consult with theradiologist who provided this interpre tation, please contact Aishwarya Rendon at [phone]. If this radiologist is unavailable, youwill be directed to another radiologist to assist. If you are a patient with a question regarding t his report, pleasecontactyour referring physician directly. Professional Interpretation Provided By: [employer], Phone , These documents contain legally protected [...] SALAZAR,Hi on 12/03/111919 Sign by: Shiva SALAZAR,Hi 14-Mgg-57880:48 METABOLIC PANEL, Comments: PATIENT WAS FASTINGPERFORMED BY: [facility]CoKind[facility] at WayneRoizee0138 [facility] [id number] Information: [id number] COMPREHENSIVE (74367) ALT (SGPT) 10 [iU]/L (Normal) Range: 0-32 [...] 80 mg/dL (Normal) Range: 65-99 :48 TSH (69436) Comments: PATIENT WAS FASTINGPERFORMED BY: LAFASO Damcpb8121 [facility] [id number] TSH 2.860 {uIU/mL} (Normal) Range: 0.450-4.500 :48 LIPID PANEL ([id number]) Comments: PATIENT WAS FASTINGPERFORMED BY: [employer]1800 [facility] [id number] LDL/HDL Ratio 2.7 {ratio_units} (Normal) Range: 0.0-3.2 LDL Cholesterol Calc 161 mg/dL (Abnormal) Range: 0-99 VLDL Cholesterol Jorge 35 mg/dL (Normal) Range: 5-40 HDL Cholesterol 60 mg/dL (Normal) Comments: According to ATP-III Guidelines, HDL-C >59 mg/dL is considered anegative risk factor for CHD. Triglycerides 174 mg/dL (Abnormal) Range: 0-149 Cholesterol, Total 256 mg/dL (Abnormal) Range: 100-199 :08 [facility] Culture exhibits no growth. (Normal) :08 [...] 10,000 ORGANISM 1: MIXED GRAM POSITIVE ORGANISMS 15-Pab-315250:33 Urinalysis, Office (26187) UA - BILIRUBIN Negative (Normal) UA - [...] NEGATIVE CLARITY CLEAR (Normal) COLOR YELLOW (Normal) 5-Azb-436324:59 LIPID VLDL 39 mg/dL (Normal) Range: 5-40 [...] 200-240 mg/dL Borderline >240 mg/dL High Risk 0-Pll-232132:59 TSH 3.19 {uIU/mL} (Normal) Range: 0.358-3.74 00-Usq-662147:15 LIPID VLDL 46 mg/dL (Abnormal) Range: 5-40 [...] 200-240 mg/dL Borderline >240 mg/dL High Risk 61-Hgv-920930:15 LIVER D BILI 0.10 mg/dL (Normal) Range: [...] Very High > or = 500 mg/dL 48-Lnk-49474:17 TSH 3.46 {uIU/mL} (Normal) Range: 0.358-3.74 30-Jcs-332244:37 CULTURE, URINE URINE CULTURE See Note {CFU/mL} Comments: COLONY COUNT 1000- 10,000 ORGANISM 1: MIXED GRAM POSITIVE ORGANISMS (Normal) 11-Nei-888027:37 TSH 0.02 {uIU/mL} (Abnormal) Range: 0.358-3.74 80-Lfm-188581:01 CULTURE, URINE URINE CULTURE See Note (Normal) Comments: Culture exhibits no growth. 45-Jfw-666661:40 L/S SPINE,MIN 4 VIEWS (MT) Radiology Report See Note (Normal) Comments: Exam Number: [id number] LUMBOSACRAL SPINE AP, lateral and oblique views [...] abnormality is seen. Reported By: HI REYNOSO 61-Awb-079965:14 Urinalysis, Office (93796) UA - LEUKOCYTE ESTERASE Small (Normal) UA [...] CHOL 202 mg/dL (Abnormal) Comments: <200 mg/dL Gpqhjunol328-373 mg/dL Borderline>240 mg/dL High Risk TRIG 183 [...] 6.4-8.2 GLU 88 mg/dL (Normal) Range: 70-110 29-Yci-752862:14 [facility] AB 6676 281 {IU/mL} (Abnormal) Range: 0-34 Comments: Performed At: [address] [id number] :14 T4 FREE DIRECT 0.7 ng/dL (Abnormal) [...] Report See Note (Normal) Comments: Exam Number: [id number] FIVE VIEW LUMBAR SPINE AP, lateral, both [...] Report See Note (Normal) Comments: Exam Number: [id number] FIVE VIEW LUMBAR SPINE AP, lateral, both [...] degenerative changes. Reported By: CATHIE SALCEDO M.D. 32-Skb-716029:24 CBCD,SMEAR DIFF BASOPHIL 1 % (Normal) Range: [...] 47-70 WBC 4.2 K/mm3 (Abnormal) Range: 4.4-11.0 94-Sba-920101:24 COMP METABOLIC A/G 1.3 {RATIO} (Normal) Range: [...] 0.2 EU/dl (Normal) Range: 0.2 - 1.0 58-Wkc-786548:24 TSH 4.71 {uIU/mL} (Normal) Range: 0.34-4.82 :16 Urinalysis, Office (22992) UA - BLOOD Non Hemolyzed Trace (Normal) [...] 3.5-5.1 NA 138 mmol/L (Normal) Range: 136-145 41-Btj-438822:35 CBC Comments: COMMENTS: PAT,OR 06/04/06Precautions*: NOT APPLICABLE HCT 36.9 % (Abnormal) Range: 37-47 HGB 12.9 g/dL (Normal) Range: 12.0-16.0 MCH 33.4 pg (Abnormal) Range: 27.0-32.0 MCHC 34.8 g/dL (Normal) Range: 32-36 MCV 95.8 fL (Normal) Range: 81-99 PLT 250 K/mm3 (Normal) Range: 150-450 RBC 3.85 {M/mm3} (Abnormal) Range: 4.2-5.4 RDW 13.9 % (Normal) Range: 11.6-14.6 WBC 5.3 K/mm3 (Normal) Range: 4.4-11.0 85-Kcs-825736:18 Urinalysis, Office (26296) UA - BILIRUBIN Negative (Normal) UA - BLOOD Non Hemolyzed Trace (Normal) UA - GLUCOSE Negative (Normal) UA - KETONES Negative mg/dL (Normal) UA - LEUKOCYTE ESTERASE Negative (Normal) UA - NITRITE Negative (Normal) UA - PH 5.0 (Normal) UA - PROTEIN Negative mg/dL (Normal) UA - SPECIFIC GRAVITY 1.025 (Normal) URINE UROBILINGN FILOMENA TIMED Normal mg/dL (Normal) 94-Vta-557629:02 Urinalysis, Office (96126) UA - BILIRUBIN Negative (Normal) UA - BLOOD Non Hemolyzed Trace (Normal) UA - GLUCOSE Negative (Normal) UA - KETONES Negative mg/dL (Normal) UA - LEUKOCYTE ESTERASE Negative (Normal) UA - NITRITE Negative (Normal) UA - PH 5.0 (Normal) UA - PROTEIN Negative mg/dL (Normal) UA - SPECIFIC GRAVITY 1.010 (Normal) URINE UROBILINGN FILOMENA TIMED 2 mg/dL (Normal) 51-Bxg-229377:46 Urinalysis, Office (92862) UA - BILIRUBIN Negative (Normal) UA - BLOOD Hemolyzed Large (Normal) UA - KETONES Negative mg/dL (Normal) UA - LEUKOCYTE ESTERASE Negative (Normal) UA - NITRITE Negative (Normal) UA - PH 5.0 (Normal) UA - PROTEIN Negative mg/dL (Normal) UA - SPECIFIC GRAVITY 1.015 (Normal) URINE UROBILINGN FILOMENA TIMED Normal mg/dL (Normal) 37-Hjj-64596:00 CULTURE, URINE Comments: The date and/or time [...] $$$ >=256 R TRIMETHOPRIM/SULFAMETHOXAZ $$ <=10 S 9-Iqc-061508:05 CBCD,SMEAR DIFF BAND 1 % (Normal) Range: [...] 0.2 EU/dl (Normal) Range: 0.2 - 1.0 6-Qnw-254591:05 TSH 3.47 {uIU/mL} (Normal) Range: 0.34-4.82 Plan [...] Current Prescription(s) Indication: Hypertension Planned Observations TSH (42740)Indication: Abnormal TSH On: :44 Request T4, FREE (THYROXINE) (73923)Indication: Abnormal TSH On: :44 Request T3, FREE (TRIDOTHYRONINE) (40600)Indication: Abnormal TSH On: :44 Request TSH (THYROID STIMULATING HORMONE) (78756)Indication: Acquired hypothyroidism On: 40-Qyu-060061:45 Request OCCULT BLOOD FECES SCREEN (63140)Indication: Diarrhea, unspecified type On: 0-Hjb-336037:04 Request Lipid Panel (89226)Indication: Mixed hyperlipidemia On: 96-Xec-787297:47 Request Comments: september 2016 HEPATIC FUNCTION PANEL (56087)Indication: Mixed hyperlipidemia On: 84-Zmz-195637:12 Request TSH (84895)Indication: Acquired hypothyroidism On: 63-Ing-275847:08 Request TSH (THYROID STIMULATING HORMONE) (40552)Indication: Acquired hypothyroidism On: 21-Rok-045069:25 Request Vitamin D Hydroxy (14024)Indication: VITAMIN D DEFICIENCY (Renamed from Avitaminosis D) On: :23 Request METABOLIC PANEL, COMPREHENSIVE (86313)Indication: Hypertension On: 62-Jtr-157624:23 Request LIPID PANEL (22101)Indication: Mixed hyperlipidemia On: 47-Ahj-618286:23 Request Metabolic Panel, Comprehensive (07948)Indication: Hypertension On: 96-Bzj-182376:01 Request Lipid Panel (07722)Indication: Mixed hyperlipidemia On: 04-Ozp-616998:01 Request TSH (99828)Indication: Acquired hypothyroidism On: 91-Rvl-312582:01 Request CALCIFEDIOL (97858)Indication: Acquired hypothyroidism On: 67-Svc-366444:01 Request METABOLIC PANEL, COMPREHENSIVE (12886)Indication: Hypertension On: 11-Usi-447497:32 Request TSH (38274)Indication: Acquired hypothyroidism On: 28-Hro-148635:31 Request LIPID PANEL (57817)Indication: Mixed hyperlipidemia On: 12-Wey-910147:31 Request HEPATIC FUNCTION PANEL (98432)Indication: Mixed hyperlipidemia On: 28-Dqj-685274:09 Request LIPID PANEL (90392)Indication: Mixed hyperlipidemia On: 82-Qfs-440922:09 Request URINE ANN CULTURE-FILOMENA COL COUNT (51989)Indication: Low back pain On: 72-Rnh-366026:33 Request CBC WITH MANUAL DIFF (87879)Indication: Hypertension On: 60-Apm-695486:06 Request METABOLIC PANEL, COMPREHENSIVE (78006)Indication: Hypertension On: 91-Lgu-639942:06 Request TSH (46492)Indication: Acquired hypothyroidism On: 84-Kwp-135782:06 Request LIPID PANEL (38229)Indication: Mixed hyperlipidemia On: 75-Tyd-142927:06 Request URINALYSIS, W/ MICRO (26077)Indication: Hypertension On: 96-Kvx-961054:12 Request TSH (78555)Indication: Acquired hypothyroidism On: 21-Owq-215796:12 Request METABOLIC PANEL, COMPREHENSIVE (04964)Indication: Hypertension On: 05-Sfo-878479:12 Request LIPID PANEL (64057)Indication: Mixed hyperlipidemia On: 61-Ajl-949407:12 Request HEPATIC FUNCTION PANEL (15018)Indication: Mixed hyperlipidemia On: 2-Dep-616333:03 Request LIPID PANEL (44383)Indication: Mixed hyperlipidemia On: 2-Yjq-865836:03 Request LIPID PANEL (28094)Indication: Mixed hyperlipidemia On: 6-Gnq-604425:50 Request TSH (12793)Indication: Acquired hypothyroidism On: 0-Fcd-130609:49 Request METABOLIC PANEL, COMPREHENSIVE (68659)Indication: Hypertension, benign On: 5-Psq-483947:49 Request URINE ANN CULTURE (FILOMENA COL COUNT) (73664)Indication: Pain in unspecified hip On: 25-Pfy-036276:16 Request TSH (43257)Indication: Acquired hypothyroidism On: 48-Vha-333100:51 Request METABOLIC PANEL, COMPREHENSIVE (48931)Indication: Hypertension, benign On: 5-Xxb-729688:58 Request HEPATIC FUNCTION PANEL (89002)Indication: Mixed hyperlipidemia On: 7-Sxn-007207:58 Request LIPID PANEL (01131)Indication: Mixed hyperlipidemia On: 8-Elq-023607:58 Request TSH (25144)Indication: Acquired hypothyroidism On: 2-Now-125522:54 Request HEPATIC FUNCTION PANEL (07092)Indication: Mixed hyperlipidemia On: 35-Ojl-586887:40 Request LIPID PANEL (52727)Indication: Mixed hyperlipidemia On: 09-Ukz-217172:40 Request Anti-TPO Antibody (14231)Indication: Abnormal TSH On: 87-Lxq-237551:31 Request T4, TOTAL (06040)Indication: Abnormal TSH On: 47-Kzp-858753:30 Request T4, FREE (74514)Indication: Abnormal TSH On: 71-Yuv-620181:30 Request TSH (01647)Indication: Abnormal TSH On: 16-Zmy-087541:30 Request CBC WITH MANUAL DIFF (33060)Indication: Hypertension, benign On: :29 Request METABOLIC PANEL, COMPREHENSIVE (64324)Indication: Hypertension, benign On: :28 Request Lipase (28620)Indication: Nausea On: :02 Request Amylase (06892)Indication: Nausea On: 2-Kki-716369:02 Request URINALYSIS W/O MICRO (72849)Indication: Dizziness and giddiness On: :58 Request TSH (94415)Indication: Dizziness and giddiness On: :58 Request METABOLIC PANEL, COMPREHENSIVE (47317)Indication: Dizziness and giddiness On: :57 Request CBC WITH MANUAL DIFF (87147)Indication: Dizziness and giddiness On: :57 Request HEPATIC FUNCTION PANEL (41652)Indication: Mixed hyperlipidemia On: :59 Request LIPID PANEL (17686)Indication: Mixed hyperlipidemia On: :59 Request URINALYSIS W/O MICRO (74583)Indication: Hypertension, benign On: 6-Crl-880026:05 Request TSH (99359)Indication: Hypertension, benign On: 2-Wjp-119187:05 Request CBC WITH MANUAL DIFF (01299)Indication: Hypertension, benign On: 9-Vaa-723736:05 Request METABOLIC PANEL, COMPREHENSIVE (57752)Indication: Hypertension, benign On: 9-Snz-796848:05 Request LIPID PANEL (18072)Indication: Mixed hyperlipidemia On: 3-Edq-721275:04 Request HEPATIC FUNCTION PANEL (72632)Indication: Mixed hyperlipidemia On: 1-Ldm-481235:04 Request URINE ANN CULTURE-IDENTIFICATN (82097)Indication: Hematuria On: 44-Gfm-140572:57 Request URINALYSIS (34590)Indication: Hematuria On: 90-Zvy-641049:57 Request URINE ANN CULTURE-IDENTIFICATN (87986)Indication: Hematuria On: 57-Opx-678372:56 Request Comments: if neg- ct of abdomen and pelvis URINALYSIS (40572)Indication: Hypertension On: 41-Sbc-292802:04 Request TSH (21847)Indication: Hypertension On: 07-Hzt-173731:03 Request CBC WITH MANUAL DIFF (71941)Indication: Hypertension On: :03 Request METABOLIC PANEL, COMPREHENSIVE (71535)Indication: Hypertension On: : Request LIPID PANEL (49104)Indication: Mixed hyperlipidemia On: : Request Planned Procedures Flu Vaccine (Quadrivalent) On: 17-Feb-2018 Intent 16309Bi: Belinda May Comments: Lot #[id number]-L dltd, IMAmount: 0.5mlVIS reviewed and ABN signedgiven by:Belinda May, CCMAVIS reviewed and ABN signed CHEST XRAY, PA & LATERAL On: 10-Nov-2017 Intent (81397)By: Louise Darby Spirometry (22321)By: On: 10-Nov-2017 Intent Louise Darby Comments: Normal X-RAY RIGHT WRIST, 3+ VIEWS On: 01-Sep-2017 Intent (42085)By: Lilliana Mishra DO Tad DO, Lilliana Radiology - Wrist - LeftBy: On: 01-Sep-2017 Intent Tad RIOS, Lilliana Tad DO, Lilliana X-RAY OF COCCYX, TWO VIEWS On: 01-Sep-2017 Intent (57048)By: Lilliana Mishra DO Tad DO, Lilliana PNEUM VAC ADLT/IMUMNOSPR, On: 29-Apr-2017 Intent SBC/INTRM (80019)By: Tad Comments: pneumovax prefilled syringe injectionlot: [id number]: 07/05/2018L DELT IMpt tolerated wellAD CERAMIC WORKER DO, Lilliana Tad DO, Lilliana Flu Vaccine (Quadrivalent) On: 29-Jan-2017 Intent 49720Ed: Lilliana Mishra DO Comments: lot: [id number]: 09/01/17ite/route: L david, IMamt: 0.5mlVIS and ABN signed when applicableChelsALISHA mercedes DOLilliana ORTHOSTATIC BLOOD PRESSURE On: 22-Aug-2016 Intent ASSESSMENT (34916)By: Wilner, Comments: Negative Louise ULTRASOUND AORTA (69248)By: On: 18-Jul-2016 Intent Lilliana Mishra DO TadLilliana chan DO EMGBy: Amy Coppola CNP On: 18-Oct-2014 Intent Nerve ConductionBy: Abdon MAGAÑA, On: 18-Oct-2014 Intent Amy Price Radiology - Wrist - RightBy: On: 18-Oct-2014 Intent Amy Coppola CNP FLU VAC, SPLIT, >3 YEARS, On: 12-Jan-2013 Intent INTRAMUSC (88476)By: Nathan, Comments: Lot:[id number]:Dose:0.5mLRoute:IMSite:L DltdGiven By:YOUNG Wyatt IMMUNIZ ADMNIN, 1 VAC, On: 12-Jan-2013 Intent SNGL/COMBO (13331)By: Yoselin Evans Eprescribed prescriptions On: 04-Jan-2013 Intent (G8553)By: Mignon Irving EKG (84373)By: Regina, On: 06-Apr-2012 Intent Mercedez Comments: ekg showed normal sinus rhythym, normal axis, no acute st/t wave changes Eprescribed prescriptions On: 06-Apr-2012 Intent (G8553)By: Mercedez Tapia Eprescribed prescriptions On: 17-Feb-2012 Intent (G8553)By: Louise Hahn LPN FLU VAC, SPLIT, >3 YEARS, On: 02-Dec-2011 Intent INTRAMUSC (71017)By: Regina, Comments: Lot #[id number]-3/30/13Site-left deltoidgiven by: MACO Monge Radiology - Hip - BilateralBy: On: 02-Dec-2011 Intent Mayra Pérez DO IMMUNIZ ADMNIN, 1 VAC, On: 02-Dec-2011 Intent SNGL/COMBO (56676)By: Mercedez Tapia [place], [place] (80752)By: On: 08-Aug-2011 Intent Mercedez Tapia Eprescribed prescriptions On: 29-Jul-2011 Intent (G8553)By: Beto RIOS Mayra A EKG (45285)By: Regina, On: 01-Apr-2011 Intent Mercedez Comments: ekg showed normal sinus rhythym, normal axis, no acute st/t wave changes FLU VAC, SPLIT, >3 YEARS, On: 01-Apr-2011 Intent INTRAMUSC (36004)By: Regina, Comments: alicia Mercedez TDAP VACCINE >7 IM (11446)By: On: 31-Jul-2010 Intent Mast Loly COYLE Comments: Lot #:[id number] date: 05/27Amount given: 0.5 mlRoute: IMSite given: left deltoidGiven by: Son Marrero RN FLU VAC, SPLIT, >3 YEARS, On: 20-Feb-2010 Intent INTRAMUSC (85595)By: Mercedez Tapia IMMUNIZ ADMNIN, 1 VAC, On: 20-Feb-2010 Intent SNGL/COMBO (39063)By: Regina, Comments: Lot #[id number]-L armDose0.5mlgiven by:SKYLA Newsome Radiology - Lumbar SpineBy: On: 25-Jul-2009 Intent Fast DO, Mayra A EKG (58615)By: Regina, On: 13-Feb-2009 Intent Mercedez Comments: ekg showed normal sinus rhythym, normal axis, no acute st/t wave changes Radiology - Hip - RightBy: On: 23-Jun-2007 Intent Fast DO, Mayra A Radiology - Lumbar SpineBy: On: 23-Jun-2007 Intent Fast DO, Mayra A FLU VAC, SPLIT, >3 YEARS, On: 03-Feb-2007 Intent INTRAMUSC (50347)By: Catia Clement Comments: Lot #[id number] Exp-09/14/07Site-left deltoid Dose0.5ccgiven by Paul Clement LPN IMMUNIZ ADMNIN, 1 VAC, On: 03-Feb-2007 Intent SNGL/COMBO (61194)By: Catia Clement EKG (01317)By: Regina, On: 14-May-2006 Intent Mercedez Comments: done-jjpekg [...] 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
--- OUTSIDE RECORDS SUMMARY | 2018-06-05 22:08 | XMS RPT_ITS | Continuity of Care Document ---
:1950 Author Organization [facility] Address [facility] [facility] [place] [address] Phone Care Team Providers Name Role Phone Tad DO Lilliana Unavailable Flako SALAZAR, Yahaira Kuhn Unavailable Beto Mayra RIOS Unavailable Dimitris SALAZAR, Dr. Alex Dunlap Unavailable Pascual Knutson Unavailable MACO Hahn Unavailable Unavailable Louise Darby Unavailable Unavailable Emick, [place] Unavailable Unavailable Gravius, Belinda Unavailable Unavailable Unavailable [...] Amy Coppola CNP Start : 26-Jun-2016 Active DAILY VALUE MULTIVITAMIN (Oral Tablet) 1 (one) [...] days Quantity: 30 {Tablet} Refills: 0 Ordered:09-Sep-2017 GenovevaKyra Start : 09-Sep-2017 Active Pantoprazole Sodium 40 MG Oral Tablet Delayed Release 1 (one) Tablet DR daily for 0 days Quantity: 30 {Tablet} Refills: 0 Ordered:16-Oct-2017 Amy Coppola CNP Start : 16-Oct-2017 Active Pantoprazole Sodium 40 MG Oral Tablet Delayed Release 1 (one) Tablet DR daily for 0 days Quantity: 90 {Tablet} Refills: 3 Ordered:16-Oct-2017 Cisylviaa Amy MAGAÑA Start : 16-Oct-2017 Active Synthroid 100 MCG Oral Tablet 1 (one) Tablet qdaily but 03/18 on friday for 90 days Quantity: 90 [...] daily for 14 days Refills: 0 Ordered:15-May-2010 Abdon MAGAÑAAmy Start : 28-Feb-2010 End : 14-Mar-2010 Inactive [...] days Quantity: 14 {Capsule} Refills: 0 Ordered:26-Jun-2016 Abdon MAGAÑAAmy Start : 26-Jun-2016 End : 03-Jul-2016 Inactive [...] QD for 0 days Refills: 0 Ordered:25-Jul-2009 Mercedez TapiaInactive ZOSTAVAX, 58370BMV/0.65ML (Subcutaneous Solution Reconstituted) 1 (one) For Solution [...] End : 20-Sep-2014 Discontinued Comments:one hundred twenty Crestor 5 MG Oral Tablet 1 (one) Tablet qd for 0 days Quantity: 30 {Tablet} Refills: 4 Ordered:01-Sep-2017 Camilo Mishra DO, DO, Kathleen Start : 01-Sep-2017 End : 01-Sep-2017 Discontinued Comments:see is aches and pains go away with prev h/o statin ;use Crestor 5 MG Oral Tablet 1 (one) Tablet qd for 90 days Quantity: 90 {Tablet} Refills: 3 Ordered:01-Sep-2017 Camilo Mishra DO, DO, Kathleen Start : 01-Sep-2017 End : 01-Sep-2017 Discontinued FEMHRT LOW DOSE, 0.5-2.5MG-MCG (Oral Tablet) 1 [...] and Lateral Result: Comments: See Note; NOTES: [facility] Imaging Services [address] [place] [address] 26149 Chest PA and Lateral MR#: [id number] Acct: [id number] Name: PAMELA GUTIERREZ Rep #: [id number] : 1950 F 67 From: Dylan Amado MD PCP: Lilliana Mishra DO Status: REG CLI Study: Chest PA and Lateral Date of Exam: 11/10/17 Exam# [id number] Ordering Dr: Louise Darby LOMBARDI DEVELOPER-C STUDY: X- RAY CHEST REASON FOR EXAM: [...] Fax CC: LAZARO Darby; Lilliana Mishra DO Hospice Care Transitions Coordinator: Signed 01-Sep-2017 Sacrum-Coccyx min 2 Views Result: Comments: See Note; NOTES: [facility] Imaging Services [address] [place] [address] Sacrum-Coccyx min 2 Views MR#: [id number] Acct: [id number] Name: PAMELA GUTIERREZ Rep #: [id number] : 1950 F 67 From: Mikael Alexander MD PCP: Lilliana Mishra DO Status: REG CLI Study: Sacrum-Coccyx min 2 Views Date of Exam: 09/01/17 Exam# [id number] Ordering Dr: Lilliana Mishra DO UDY: X-RAY [...] Service support , CC: Lilliana Mishra DO Hospice Care Transitions Coordinator: Signed 01-Sep-2017 Wrist min 3 Views Result: Comments: See Note; NOTES: [facility] Imaging Services [address] [place] [address] Wrist min 3 Views MR#: [id number] Acct: [id number] Name: PAMELA GUTIERREZ Rep #: [id number] : 1950 F 67 From: Mikael Alexander MD PCP: Lilliana Mishra DO Status: REG CLI Study: Wrist min 3 Views Date of Exam: 09/01/17 Exam# [id number] Ordering Dr: Lilliana Mishra DO STUDY: X-RAY [...] Service support , CC: Lilliana Mishra DO Hospice Care Transitions Coordinator: Signed 01-Sep-2017 Wrist min 3 Views Result: Comments: See Note; NOTES: [facility] Imaging Services [address] [place] [address] Wrist min 3 Views MR#: [id number] Acct: [id number] Name: PAMELA GUTIERREZ Rep #: [id number] : 1950 F 67 From: Mikael Alexander MD PCP: Lilliana Mishra DO Status: REG CLI Study: Wrist min 3 Views Date of Exam: 09/01/17 Exam# [id number] Ordering Dr: Lilliana Mishra DO STUDY: X-RAY [...] Service support , CC: Lilliana Mishra DO Hospice Care Transitions Coordinator: Signed 08-Mar-2017 Urgent Care Visit Report Result: Comments: See Note; NOTES: [address] [place] [address] OFFICE VISIT Date of Service: 03/08/17 MR#: [id number] Acct: [id number] Name: PAMELA GUTIERREZ Re p #: [id number] : 1950 Provider: ANISA Santamaria Age/Sex: 66/F Location: [facility] [place] Status: Signed Intake Intake [...] mg PO DAILY 07/11/14 [History Confirmed 03/08/17] isyfbkwbrfriidy-ulqxilzlppqrmok-SC 2 mg- 30 mg-10 mg/5 mL syrup [...] 19-Jul-2016 Aorta Result: Comments: See Note; NOTES: [facility] Imaging Services [address] [place] [address] Verdana 4d Aorta MR#: [id number] Acct: [id number] Name: PAMELA GUTIERREZ Rep #: [id number] D OB: 1950 F 65 From: Hi Reynoso MD PCP: Lilliana Mishra DO Status: REG CLI Study: Aorta Date of Exam: 07/19/16 Exam# [id number] Ordering Dr: Lilliana Mishra DO PROCEDURES: ULTRASOUND [...] Hi Reynoso MD at 9:24 EDT Tel [phone], Service support , CC: Lilliana Mishra DO Hospice Care Transitions Coordinator: Signed 18-Oct-2014 Wrist min 3 Views Result: Comments: See Note; NOTES: [facility] Imaging Services [address] [place] [address] Radiology Report MR#: [id number] Acct: [id number] Name: PAMELA GUTIERREZ Rep #: [id number] : 1950 F 64 From: Hi Reynoso MD PCP: Mayra Pérez DO Status: REG CLI Study: Wrist min 3 Views Date of Exam: 10/18/14 Exam# [id number] Ordering Dr: Amy Coppola STUDY: X-RAY - [...] Hi Reynoso MD at 16:02 EDT Tel [phone], Service support [phone], RAD/Wrist mi n 3 Views IMPRESSION: Normal x-ray examination of the wrist. Electronically Signed: Hi eRynoso MD at 16:02 EDT Tel [phone], Service support [phone], CC: Amy Coppola; Mayra Pérez DO Hospice Care Transitions Coordinator: Signed 17-Jul-2014 Emergency Department Summary Result: Comments: See Note; NOTES: [facility] Medical Records Department [address] [place] [address] Emergency Department Summary MR#: [id number] Acct: [id number] Name: PAMELA GUTIERREZ Rep #: [id number] : 1950 63 From: Ronald Payne MD PCP: Mayra Pérez DO Status: DEP ER DATE OF SERVICE: 07/11/2014 CHIEF COMPLAINT: Left wrist pain and knee pain. HISTORY OF VA ESENT ILLNESS: The patient was in an [...] medicine here to go. She will use xiln-xur-inclxjx ice, elevation may help. Follow up within [...] ht knee contusion. MD Neema Berry C: DesigualPRO Ronald Langston MD T: NTS JOB: [id number] 07/17/14 1528 <Electronically signed by Ronald Payne MD> Date Ronald Payne MD CC: Mayra Pérez DO; Ronald Langston MD; [employer] Date Dictated: 07/11/142249 Date Transcribed: 07/11/142249 Hospice Care Transitions Coordinator: Signed 11-Jul-2014 Discharge Instruction Result: Comments: See Note; NOTES: [facility] Medical Records Department [address] [facility] [place] [address] Discharge Instruction 07/11/142130 MR#: [id number] Acct: [id number] Name: PAMELA GUTIERREZ Rep #: [id number] : 1950 63 From: Ronald Payne MD [...] Doctors Registry ) or report to the [facility] Emergency Room. Call 911 if necessary. 07/11/142131 <Electronically signed by Ronald Payne MD> Date Ronald Payne MD Cos igner Signature (If Indicated): Date CC: Mayra Pérez DO 11-Jul-2014 Wrist min 3 Views Result: Comments: See Note; NOTES: [facility] Imaging Services [address] [place] [address] Radiology Report MR#: [id number] Acct: [id number] Name: PAMELA GUTIERREZ Rep #: [id number] : 1950 F 63 From: Hi Reynoso MD PCP: Mayra Pérez DO Status: DEP ER Study: Wrist min 3 Views Date of Exam: 07/11/14 Exam# [id number] Ordering Dr: Ronald Payne MD STUDY: X-RAY [...] Hi Reynoso MD at 9:18 EDT Tel [phone], Service support [phone], RAD/Wrist min 3 Views IMPRESSION: I suspect a nondisplaced linear fracture involving the distal radial metaphysis with extension to the articular surface. Soft tissue swelling. Electronically Signed: Hi Reynoso MD at 9:18 EDT Tel [phone], Service support [phone], CC: Mayra Pérez DO; Ronald Payne MD Hospice Care Transitions Coordinator: Signed 22-Oct-2013 EKG (23503) Comments: ekg showed normal sinus rhythym, normal axis, no acute st/t wave changes biphasic twave otherwise no change Result: [MEASUREMENTS ANALYSIS] Date of Test: 10/22/2013 14:05:39; Heart Rate: 67; VA Interval: 154; QRS: 90; QT Interval: 388; Corrected QT Interval (QTc): 400; P Wave Everett: 31; QRS Wave [place]rett: -15; T Wave Everett : 1; Blood Pressure: 112/72 [ECG DIAGNOSTIC STATEMENTS] Date of Test: 10/22/2013 14:05:39; Summary: Sinus Rhythm - Diffuse nonspecific T-abnormality. ABNORMAL Immunization Name Dates Details Influenza (3 years and up) on: 03-Feb-2007 Comments: Lot #[id number] Exp-09/14/07Site-left deltoid Dose0.5ccgiven by Paul Clement LPN [...] kg/m2 Body Surface Area Calculated 2.03 m2 76-Imz-708403:56 Temperature 97.6 f Comments: Method: Temporal Pulse [...] 0.00 cm Results Date Description Value Details 07-Aks-132680:40 TSH (83687) Comments: PATIENT WAS FASTINGPERFORMED BY: [employer] LabGlympse[address] [id number] BY: [facility] [address] [facility] [place] [id number]; fu 09-01-17 KF TSH 0.340 {uIU/mL} (Abnormal) Range: 0.450-4.500 :40 CALCIFIDIOL (95449) VIT D Comments: PATIENT WAS FASTINGPERFORMED BY: Style[employer]zzle[address] [id number] BY: Need Fixed70 [facility] [id number] 25 Vitamin D, 25-Hydroxy 37.6 ng/mL (Normal) Range: 30.0-100.0 Comments: Vitamin D deficiency has been defined by the [place] of[place] and an Endocrine Society practice guideline as alevel of serum 25-OH vitamin D less than 20 ng/mL (1,2).The Endocrine Society went on to further define vitamin Dinsufficiency as a level between 21 and 29 ng/mL (2).1. IOM ([place] [employer]). 2010. Dietary reference intakes for calcium and D. [place]: The National Academies Press.2. Fletcher MF, Edgardo NC, Dina KAPLAN, et al. Evaluation, treatment, and prevention of vitamin D deficiency: an Endocrine Society clinical practice guideline. JCEM. 2010; 96(7):1911-30. 79-Qdu-301751:40 LIPOPROTEIN, BLD, BY NMR Comments: PATIENT WAS FASTINGPERFORMED BY: LabGlympse[address] [id number] BY: [employer] [facility] Kztoyy2803 [facility] [place] [id number] (97207) LP-IR Score 71 (Abnormal) Comments: INSULIN RESISTANCE MARKER <--Insulin Sensitive Insulin Resistant--> Percentile in Reference PopulationInsulin Resistance ScoreLP-IR Score Low 25th 50th 75th High <27 27 45 63 >63LP-IR Score is inaccurate if patient is non-fasting. .The LP-IR score is a laboratory developed i [facility] [place] that has beenassociated with insulin resistance and [...] were developed and their performance characteristicsdetermined by [employer]. These assays have not been cleared by [...] 1600 - 2000 Very High > 2000 87-Bwa-096266:40 METABOLIC PANEL, Comments: PATIENT WAS FASTINGPERFORMED BY: BN [facility] Ckntiurnzd6856 [facility] [id number] BY: CB [facility] Grvbci5650 [facility] [id number] COMPREHENSIVE (96035) ALT (SGPT) 16 [iU]/L (Normal) Range: 0-32 [...] 8-27 Glucose 85 mg/dL (Normal) Range: 65-99 99-Qbp-235959:40 CBC with auto diff Comments: PATIENT WAS FASTINGPERFORMED BY: [place] [address] [facility] [id number] BY: TourPalFormerly [facility]6370 [facility] [id number] (38274) Immature Grans (Abs) 0.0 {x10E3/uL} (Normal) Range: [...] 3.77-5.28 WBC 4.8 {x10E3/uL} (Normal) Range: 3.4-10.8 18-Afh-312021:43 Microscopic Examination Comments: PATIENT WAS FASTINGPERFORMED BY: [facility]Former[facility]6370 [facility] [id number] Bacteria None seen (Normal) Mucus Threads Present (Normal) Epithelial Cells (non renal) 0-10 {/hpf} (Normal) Range: 0 - 10 RBC None seen {/hpf} (Normal) Range: 0 - 2 WBC 0-5 {/hpf} (Normal) Range: 0 - 5 :43 CALCIFEDIOL (07941) Comments: PATIENT WAS FASTINGPERFORMED BY: [employer] Podhms4167 [facility] [id number] Vitamin D, 25-Hydroxy 68.6 ng/mL (Normal) Range: 30.0-100.0 Comments: Vitamin D deficiency has been defined by the [place] [employer] and an Endocrine Society practice guideline as alevel of serum 25-OH vitamin D less than 20 ng/mL (1,2).The Endocrine Society went on to further define vitamin Dinsufficiency as a level between 21 and 29 ng/mL (2).1. IOM ([place] [employer]). 2010. Dietary reference intakes for calcium and D. [place]: The National Academies Press.2. Fletcher MF, Edgardo NC, Dina KAPLAN, et al. Evaluation, treatment, and prevention of vitamin D deficiency: an Endocrine Society clinical practice guideline. JCEM. 2010; 96(7):1911-30. :43 TSH (01148) Comments: PATIENT WAS FASTINGPERFORMED BY: ThisClicksBayshore Community HospitalQdxiwj7512 [facility] [id number] TSH 4.800 {uIU/mL} (Abnormal) Range: 0.450-4.500 :43 URINALYSIS, W/ MICRO (41533) Comments: PATIENT WAS FASTINGPERFORMED BY: [facility]Former[facility]6370 [facility] [id number] Microscopic Examination See below: (Normal) Comments: Microscopic was indicated and was performed. Nitrite, Urine Negative (Normal) Urobilinogen,Semi-Qn 0.2 mg/dL (Normal) Range: 0.2-1.0 Bilirubin Negative (Normal) Occult Blood 1+ (Abnormal) Ketones Negative (Normal) Glucose Negative (Normal) Protein Negative (Normal) WBC Esterase Trace (Abnormal) Appearance Clear (Normal) Urine-Color Yellow (Normal) pH 6.0 (Normal) Range: 5.0-7.5 Specific [place] 1.013 (Normal) Range: 1.005-1.030 :43 MICROALBUMIN: CREATININE RATIO Comments: PATIENT WAS FASTINGPERFORMED BY: [employer] Jgifkp7429 [facility] [id number] (53261) AND (03796) Microalb/Creat Ratio <4.4 {mg/g_creat} (Normal) Range: 0.0-30.0 Microalbumin, Urine <3.0 ug/mL (Normal) Creatinine, Urine 67.5 mg/dL (Normal) :43 METABOLIC PANEL, COMPREHENSIVE Comments: PATIENT WAS FASTINGPERFORMED BY: [employer]70 [facility]SanovationNov[facility] [id number] (79217) ALT (SGPT) 21 [iU]/L (Normal) Range: 0-32 [...] Glucose, Serum 87 mg/dL (Normal) Range: 65-99 02-Tco-179995:43 LIPID PANEL (00252) Comments: PATIENT WAS FASTINGPERFORMED BY: ThisClicksBayshore Community HospitalQeaxhc2111 [facility] [id number] LDL/HDL Ratio 2.1 {ratio_units} (Normal) Range: 0.0-3.2 Comments: LDL/HDL Ratio Men Women 1/2 Avg.Risk 1.0 1.5 Av g.Risk 3.6 3.2 2X Avg.Risk 6.2 5.0 3X Avg.Risk 8.0 6.1 LDL Cholesterol Calc 81 mg/dL (Normal) Range: 0-99 VLDL Cholesterol Jorge 20 mg/dL (Normal) Range: 5-40 HDL Cholesterol 38 mg/dL (Abnormal) Triglycerides 102 mg/dL (Normal) Range: 0-149 Cholesterol, Total 139 mg/dL (Normal) Range: 100-199 17-Jzn-570171:43 CBC W/AUTO DIFF WBC (22880) Comments: PATIENT WAS FASTINGPERFORMED BY: Wyle Sqpvfg1532 [facility] [id number] Immature Grans (Abs) 0.0 {x10E3/uL} (Normal) Range: [...] {x10E3/uL} (Normal) Range: 3.4-10.8 :33 C-REACTIVE PROTEIN (36111) Comments: PATIENT NOT FASTINGPERFORMED BY: ThisClicksBayshore Community HospitalCiqwkf2488 [facility] [id number] C-Reactive Protein, Quant 0.7 mg/L (Normal) Range: 0.0-4.9 :33 SED RATE ERYTHROCYTE (85683) Comments: PATIENT NOT FASTINGPERFORMED BY: ThisClicksBayshore Community HospitalIxnkqe9747 [facility] [id number] Sedimentation Rate-Miriam Hospitalren 3 mm/h (Normal) Range: 0-40 :33 CBC, PLATELETS & AUT DIFF Comments: PATIENT NOT FASTINGPERFORMED BY: ThisClicksBayshore Community HospitalDqkger4791 [facility] [id number] Information: [id number] (18637) Immature Grans (Abs) 0.0 {x10E3/uL} (Normal) Range: [...] 3.77-5.28 WBC 5.6 {x10E3/uL} (Normal) Range: 3.4-10.8 3-Vqm-160578:33 METABOLIC PANEL, COMPREHENSIVE Comments: PATIENT NOT FASTINGPERFORMED BY: LabCoBayshore Community HospitalYswtui4603 [facility] [id number] (40415) ALT (SGPT) 18 [iU]/L (Normal) Range: 0-32 [...] mg/dL (Normal) Range: 65-99 :26 ANN CULTURE-STOOL (64529) Comments: PATIENT NOT FASTINGPERFORMED BY: [employer] [address] [facility] [id number] Information: SRC:ST SRC:ST E coli Shiga Toxin EIA Negative (Normal) Result 1 NCI (Normal) Comments: No Campylobacter species isolated. Campylobacter Culture Final report (Normal) Result 1 NSS (Normal) Comments: No Salmonella or Shigella recovered. Salmonella/Shigella Screen Final report (Normal) :26 Clostridium difficile Toxin Comments: PATIENT NOT FASTINGPERFORMED BY: [employer] Cimeaj8482 [facility] [id number] A+B, EIA (01042) C difficile Toxins A+B, EIA Negative (Normal) :26 LEUKOCYTE COUNT, FECAL (71622) Comments: PATIENT NOT FASTINGPERFORMED BY: [employer] Qnfldp9873 [facility] [id number] Result 1 NWBC (Normal) Comments: No white blood cells seen. White Blood Cells (WBC), Final report (Normal) Stool :26 OVA & PARASITE DIR SMEAR Comments: PATIENT NOT FASTINGPERFORMED BY: [employer] Amferi6854 [facility] [id number] (27227) Result 1 NOCP (Normal) Comments: No ova, cysts, or parasites seen. Ova + Parasite Exam Final report (Normal) Comments: These results were obtained using wet preparation(s) and trichromestained smear. This test does not include testing for Cryptosporidiumparvum, Cyclospora, or Microsporidia. 40-Rkf-117647:44 TSH (18346) Comments: PATIENT WAS FASTINGPERFORMED BY: [employer] Fkhygz2056 [facility] [id number] TSH 1.290 {uIU/mL} (Normal) Range: 0.450-4.500 :44 CBC W/AUTO DIFF WBC (37200) Comments: PATIENT WAS FASTINGPERFORMED BY: ThisClicksBayshore Community HospitalVkiacb0095 [facility] [id number] Immature Grans (Abs) 0.0 {x10E3/uL} (Normal) Range: [...] PANEL, COMPREHENSIVE Comments: PATIENT WAS FASTINGPERFORMED BY: [facility]6370 [facility] [id number] (53583) ALT (SGPT) 10 [iU]/L (Normal) Range: 0-32 [...] Glucose, Serum 91 mg/dL (Normal) Range: 65-99 03-Sig-470617:44 LIPID PANEL (22231) Comments: PATIENT WAS FASTINGPERFORMED BY: LabCoBayshore Community HospitalZtuves1821 [facility] [id number]; non-emergent till apt tomorrow LDL/HDL Ratio 3.3 [...] 246 mg/dL (Abnormal) Range: 100-199 :59 TSH (45057) Comments: PATIENT WAS FASTINGPERFORMED BY: [facility]6370 [facility] [id number] TSH 0.081 {uIU/mL} (Abnormal) Range: 0.450-4.500 :59 Vitamin D Hydroxy (44536) Comments: PATIENT WAS FASTINGPERFORMED BY: [facility]6370 [facility] [id number] Vitamin D, 25-Hydroxy 42.0 ng/mL (Normal) Range: 30.0-100.0 Comments: Vitamin D deficiency has been defined by the [place] of[place] and an Endocrine Society practice guideline as alevel of serum 25-OH vitamin D less than 20 ng/mL (1,2).The Endocrine Society went on to further define vitamin Dinsufficiency as a level between 21 and 29 ng/mL (2).1. IOM ([place] [employer]). 2010. Dietary reference intakes for calcium and D. [place]: The National Academies Press.2. Fletcher MF, Edgardo [place], Evangelist-Baldev KAPLAN, et al. Evaluation, treatment, and prevention of vitamin D deficiency: an Endocrine Society clinical practice guideline. JCEM. 2010; 96(7):1911-30. :59 LIPID PANEL (17251) Comments: PATIENT WAS FASTINGPERFORMED BY: [facility]6370 [facility] [id number] Information: 225347,[id number] LDL/HDL Ratio 2.8 {ratio_units} (Normal) Range: 0.0-3.2 [...] Cholesterol, Total 229 mg/dL (Abnormal) Range: 100-199 41-Ghq-472231:56 Allergen, Rast Food Profile Comments: Test performed at:[facility] [address] [place] [address] RAST COMMENT Comment (Normal) Comments: Levels of [...] in this mix are: Blue mussel Fish Casselberry Shrimp Tuna EGG, WHOLE <0.10 kU/L (Normal) CHOCOLATE <0.10 kU/L (Normal) Comments: Performed at: [address] [id number] Director: Vaughn Garsia MD, Phone: [phone] BEEF <0.10 kU/L (Normal) PORK <0.10 kU/L (Normal) SOYBEAN <0.10 kU/L (Normal) PEANUT <0.10 kU/L (Normal) CORN <0.10 kU/L (Normal) WHEAT <0.10 kU/L (Normal) MILK (COW) <0.10 kU/L (Normal) 47-Tdf-26759:38 URINE ANN CULTURE-FILOMENA COL Comments: PATIENT NOT FASTINGPERFORMED BY: LabCoBayshore Community HospitalUwfgir8517 [facility] [id number] Information: SRC:[facility] W45335 COUNT (77305) Antimicrobial MIHEAD (Normal) Comments: S = Susceptible; [...] mL (Abnormal) Urine Final report Culture,Comprehensive (Abnormal) 66-Tfk-583514:11 Urinalysis, Office (19304) UA - LEUKOCYTE ESTERASE Large (Normal) UA - NITRITE Negative (Normal) URINE UROBILINGN FILOMENA TIMED Normal mg/dL (Normal) UA - PROTEIN Negative mg/dL (Normal) UA - PH 5.0 (Normal) UA - BLOOD Non Hemolyzed Moderate (Normal) UA - SPECIFIC GRAVITY 1.015 (Normal) UA - KETONES Negative mg/dL (Normal) UA - BILIRUBIN Negative (Normal) UA - GLUCOSE Negative (Normal) 1-Gjl-651044:33 Comprehensive Metabolic Profil Comments: Test performed at:[facility] [address] [place], [place] [id number] GAP 4 (Abnormal) Range: 5-15 CO2 31.0 [...] 7-18 GLU 89 mg/dL (Normal) Range: 70-110 1-Jpe-791120:33 Lipid Profile Comments: Test performed at:[facility] [address]ueon[address] [place], [place] [id number] VLDL 31 mg/dL (Normal) Range: 5-40 LDL [...] 200-240 mg/dL Borderline >240 mg/dL High Risk 1-Uiz-892085:33 Thyroid Stim Hormone (TSH) Comments: Test performed at:[facility] [address]xk[address] [place], [place] [address] TSH 3.03 {uIU/mL} (Normal) Range: 0.358-3.74 :57 TSH (10739) Comments: PATIENT WAS FASTINGPERFORMED BY: [facility] Akiecx8135 [facility] [id number] TSH 7.420 {uIU/mL} (Abnormal) Range: 0.450-4.500 :57 METABOLIC PANEL, Comments: PATIENT WAS FASTINGPERFORMED BY: LabCoBays[facility]ore Community HospitalRbpkfo8171 [facility] [id number] Information: [id number] COMPREHENSIVE (79174) ALT (SGPT) 10 [iU]/L (Normal) Range: 0-32 [...] mg/dL (Normal) Range: 65-99 :57 LIPID PANEL (35420) Comments: PATIENT WAS FASTINGPERFORMED BY: [facility]CoBays[facility]ore Community HospitalJkfdtq2531 [facility] [id number] LDL/HDL Ratio 4.1 {ratio_units} (Abnormal) Range: 0.0-3.2 [...] Cholesterol, Total 280 mg/dL (Abnormal) Range: 100-199 95-Hen-825907:09 CMP GAP 7 (Normal) Range: 5-15 CO2 [...] 7-18 GLU 85 mg/dL (Normal) Range: 70-110 54-Hko-149060:09 LIPID VLDL 39 mg/dL (Normal) Range: 5-40 [...] CHOL 260 mg/dL (Abnormal) Comments: <200 mg/dL Uoitlsojv967-658 mg/dL Borderline>240 mg/dL High Risk 59-Pid-559152:09 VITD 49.6 mg/mL (Normal) Comments: Vitamin D 25(OH) Status RangeDeficiency <20 ng/mL (50nmol/L)Insuffciency 20 - 30 ng/mL (50 - 75 nmol/L)Sufficiency 30 - 100 ng/mL (75 - 250 nmol/L)Toxicity >100 ng/mL (>250 nmol/L) 09-Owx-542879:14 CMP GAP 5 (Normal) Range: 5-15 CO2 [...] 7-18 GLU 90 mg/dL (Normal) Range: 70-110 68-Fax-584421:14 LIPID VLDL 36 mg/dL (Normal) Range: 5-40 [...] CHOL 257 mg/dL (Abnormal) Comments: <200 mg/dL Mtwrqeqqp133-048 mg/dL Borderline>240 mg/dL High Risk :14 TSH 2.38 {uIU/mL} (Normal) Range: 0.358-3.74 08-Cbn-479160:14 VITD 25.6 mg/mL (Normal) Comments: Vitamin D 25(OH) Status RangeDeficiency <20 ng/mL (50nmol/L)Insuffciency 20 - 30 ng/mL (50 - 75 nmol/L)Sufficiency 30 - 100 ng/mL (75 - 250 nmol/L)Toxicity >100 ng/mL (>250 nmol/L) 07-Izu-801687:56 Urinalysis, Office (59393) UA - BILIRUBIN Negative (Normal) UA - [...] CHOL 257 mg/dL (Abnormal) Comments: <200 mg/dL Seqcjldzq832-210 mg/dL Borderline>240 mg/dL High Risk :57 TSH 3.02 {uIU/mL} (Normal) Range: 0.358-3.74 :51 LIPID PANEL (94745) Comments: PATIENT WAS FASTINGPERFORMED BY: [facility] [id number] LDL/HDL Ratio 2.9 {ratio_units} (Normal) Range: 0.0-3.2 [...] METABOLIC PANEL, Comments: PATIENT WAS FASTINGPERFORMED BY: evidanzaDublin [place] [id number] Information: [id number] [facility] (17128) ALT (SGPT) 11 [iU]/L (Normal) Range: 0-32 [...] Glucose, Serum 85 mg/dL (Normal) Range: 65-99 20-Vse-945364:13 HIP, MIN 2 VIEWS Radiology Report See [...] Reynoso M.D.December 03, 2011 at 12:32:11 PM [id number] Signed GP/GP If you are the referring physician and would like to consult with theradiologist who provided this interpretation, please contact Aishwarya Rendon at [phone]. If this radiologist is unavailable, youwill be directed to another radiologist t o assist. If you are a patient with a question regarding this report, pleasecontactyour referring physician directly. Professional Interpretation Provided By: [employer], Phone ,Fax These documents contain legally protected [...] 1240 Sign b y: Hi Reynoso MD 25-Ymj-750388:13 HIP, MIN 2 VIEWS Radiology Report See [...] Nguyen M.D.December 03, 2011 at 12:33:05 PM [id number] Signed GP/GP If you are the referring physician and would like to consult with theradiologist who provided this interpre tation, please contact Aishwarya Rendon at [phone]. If this radiologist is unavailable, youwill be directed to another radiologist to assist. If you are a patient with a question regarding t his report, pleasecontactyour referring physician directly. Professional Interpretation Provided By: [employer], Phone , These documents contain legally protected [...] SALAZAR,Hi on 12/03/111919 Sign by: Shiva SALAZAR,Hi 11-Bsz-92544:48 METABOLIC PANEL, Comments: PATIENT WAS FASTINGPERFORMED BY: [facility] HospitalGkbezk7894 [facility] [id number] Information: [id number] COMPREHENSIVE (13737) ALT (SGPT) 10 [iU]/L (Normal) Range: 0-32 [...] 80 mg/dL (Normal) Range: 65-99 :48 TSH (62633) Comments: PATIENT WAS FASTINGPERFORMED BY: Wyle Eysxbb8124 [facility] [id number] TSH 2.860 {uIU/mL} (Normal) Range: 0.450-4.500 :48 LIPID PANEL (06316) Comments: PATIENT WAS FASTINGPERFORMED BY: Metrilo Mbpnpw4323 [facility] [id number] LDL/HDL Ratio 2.7 {ratio_units} (Normal) Range: 0.0-3.2 LDL Cholesterol Calc 161 mg/dL (Abnormal) Range: 0-99 VLDL Cholesterol Jorge 35 mg/dL (Normal) Range: 5-40 HDL Cholesterol 60 mg/dL (Normal) Comments: According to ATP-III Guidelines, HDL-C >59 mg/dL is considered anegative risk factor for CHD. Triglycerides 174 mg/dL (Abnormal) Range: 0-149 Cholesterol, Total 256 mg/dL (Abnormal) Range: 100-199 :08 [facility] Culture exhibits no growth. (Normal) :08 [...] 10,000 ORGANISM 1: MIXED GRAM POSITIVE ORGANISMS 30-Wqh-770618:33 Urinalysis, Office (15759) UA - BILIRUBIN Negative (Normal) UA - [...] NEGATIVE CLARITY CLEAR (Normal) COLOR YELLOW (Normal) 1-Vqn-227814:59 LIPID VLDL 39 mg/dL (Normal) Range: 5-40 [...] 200-240 mg/dL Borderline >240 mg/dL High Risk 6-Zjd-501243:59 TSH 3.19 {uIU/mL} (Normal) Range: 0.358-3.74 40-Hia-097938:15 LIPID VLDL 46 mg/dL (Abnormal) Range: 5-40 [...] 200-240 mg/dL Borderline >240 mg/dL High Risk 30-Tix-088553:15 LIVER D BILI 0.10 mg/dL (Normal) Range: [...] Very High > or = 500 mg/dL 14-Zgs-59733:17 TSH 3.46 {uIU/mL} (Normal) Range: 0.358-3.74 40-Yyz-239888:37 CULTURE, URINE URINE CULTURE See Note {CFU/mL} Comments: COLONY COUNT 1000- 10,000 ORGANISM 1: MIXED GRAM POSITIVE ORGANISMS (Normal) 64-Yhl-383873:37 TSH 0.02 {uIU/mL} (Abnormal) Range: 0.358-3.74 65-Zru-562806:01 CULTURE, URINE URINE CULTURE See Note (Normal) Comments: Culture exhibits no growth. 57-Fyr-978405:40 L/S SPINE,MIN 4 VIEWS (MT) Radiology Report See Note (Normal) Comments: Exam Number: [id number] LUMBOSACRAL SPINE AP, lateral and oblique views [...] abnormality is seen. Reported By: HI REYNOSO 44-Hdm-807824:14 Urinalysis, Office (83178) UA - LEUKOCYTE ESTERASE Small (Normal) UA [...] CHOL 202 mg/dL (Abnormal) Comments: <200 mg/dL Dppobsjbo427-082 mg/dL Borderline>240 mg/dL High Risk TRIG 183 [...] 6.4-8.2 GLU 88 mg/dL (Normal) Range: 70-110 02-Zqy-354982:14 [facility] 6676 281 {IU/mL} (Abnormal) Range: 0-34 Comments: Performed At: [address] [id number] :14 T4 FREE DIRECT 0.7 ng/dL (Abnormal) [...] Report See Note (Normal) Comments: Exam Number: [id number] FIVE VIEW LUMBAR SPINE AP, lateral, both [...] Report See Note (Normal) Comments: Exam Number: [id number] FIVE VIEW LUMBAR SPINE AP, lateral, both [...] degenerative changes. Reported By: CATHIE SALCEDO M.D. 43-Yfv-143000:24 CBCD,SMEAR DIFF BASOPHIL 1 % (Normal) Range: [...] 47-70 WBC 4.2 K/mm3 (Abnormal) Range: 4.4-11.0 62-Wyn-904160:24 COMP METABOLIC A/G 1.3 {RATIO} (Normal) Range: [...] 0.2 EU/dl (Normal) Range: 0.2 - 1.0 72-Eiw-689847:24 TSH 4.71 {uIU/mL} (Normal) Range: 0.34-4.82 :16 Urinalysis, Office (68706) UA - BLOOD Non Hemolyzed Trace (Normal) [...] 3.5-5.1 NA 138 mmol/L (Normal) Range: 136-145 95-Pqe-676561:35 CBC Comments: COMMENTS: PAT,OR 06/04/06Precautions*: NOT APPLICABLE HCT 36.9 % (Abnormal) Range: 37-47 HGB 12.9 g/dL (Normal) Range: 12.0-16.0 MCH 33.4 pg (Abnormal) Range: 27.0-32.0 MCHC 34.8 g/dL (Normal) Range: 32-36 MCV 95.8 fL (Normal) Range: 81-99 PLT 250 K/mm3 (Normal) Range: 150-450 RBC 3.85 {M/mm3} (Abnormal) Range: 4.2-5.4 RDW 13.9 % (Normal) Range: 11.6-14.6 WBC 5.3 K/mm3 (Normal) Range: 4.4-11.0 29-Vsu-343762:18 Urinalysis, Office (63924) UA - BILIRUBIN Negative (Normal) UA - BLOOD Non Hemolyzed Trace (Normal) UA - GLUCOSE Negative (Normal) UA - KETONES Negative mg/dL (Normal) UA - LEUKOCYTE ESTERASE Negative (Normal) UA - NITRITE Negative (Normal) UA - PH 5.0 (Normal) UA - PROTEIN Negative mg/dL (Normal) UA - SPECIFIC GRAVITY 1.025 (Normal) URINE UROBILINGN FILOMENA TIMED Normal mg/dL (Normal) 31-Syh-027236:02 Urinalysis, Office (26527) UA - BILIRUBIN Negative (Normal) UA - BLOOD Non Hemolyzed Trace (Normal) UA - GLUCOSE Negative (Normal) UA - KETONES Negative mg/dL (Normal) UA - LEUKOCYTE ESTERASE Negative (Normal) UA - NITRITE Negative (Normal) UA - PH 5.0 (Normal) UA - PROTEIN Negative mg/dL (Normal) UA - SPECIFIC GRAVITY 1.010 (Normal) URINE UROBILINGN FILOMENA TIMED 2 mg/dL (Normal) 20-Pgf-788975:46 Urinalysis, Office (10326) UA - BILIRUBIN Negative (Normal) UA - BLOOD Hemolyzed Large (Normal) UA - KETONES Negative mg/dL (Normal) UA - LEUKOCYTE ESTERASE Negative (Normal) UA - NITRITE Negative (Normal) UA - PH 5.0 (Normal) UA - PROTEIN Negative mg/dL (Normal) UA - SPECIFIC GRAVITY 1.015 (Normal) URINE UROBILINGN FILOMENA TIMED Normal mg/dL (Normal) 91-Ayu-91653:00 CULTURE, URINE Comments: The date and/or time [...] $$$ >=256 R TRIMETHOPRIM/SULFAMETHOXAZ $$ <=10 S 6-Ngp-423335:05 CBCD,SMEAR DIFF BAND 1 % (Normal) Range: [...] 0.2 EU/dl (Normal) Range: 0.2 - 1.0 8-Ngf-060127:05 TSH 3.47 {uIU/mL} (Normal) Range: 0.34-4.82 Plan [...] Current Prescription(s) Indication: Hypertension Planned Observations TSH (26895)Indication: Abnormal TSH On: :44 Request T4, FREE (THYROXINE) (52504)Indication: Abnormal TSH On: :44 Request T3, FREE (TRIDOTHYRONINE) (86624)Indication: Abnormal TSH On: :44 Request TSH (THYROID STIMULATING HORMONE) (65823)Indication: Acquired hypothyroidism On: 88-Stx-246003:45 Request OCCULT BLOOD FECES SCREEN (21029)Indication: Diarrhea, unspecified type On: 9-Yku-707448:04 Request Lipid Panel (76896)Indication: Mixed hyperlipidemia On: 16-Olu-118670:47 Request Comments: september 2016 HEPATIC FUNCTION PANEL (61516)Indication: Mixed hyperlipidemia On: 38-Tgi-752213:12 Request TSH (05217)Indication: Acquired hypothyroidism On: 46-Nbw-584914:08 Request TSH (THYROID STIMULATING HORMONE) (64068)Indication: Acquired hypothyroidism On: 66-Spe-540009:25 Request Vitamin D Hydroxy (99300)Indication: VITAMIN D DEFICIENCY (Renamed from Avitaminosis D) On: :23 Request METABOLIC PANEL, COMPREHENSIVE (64390)Indication: Hypertension On: 90-Euk-730851:23 Request LIPID PANEL (65854)Indication: Mixed hyperlipidemia On: 56-Xhv-182746:23 Request Metabolic Panel, Comprehensive (77006)Indication: Hypertension On: 06-Mfr-292278:01 Request Lipid Panel (50922)Indication: Mixed hyperlipidemia On: 95-Hqy-920353:01 Request TSH (34426)Indication: Acquired hypothyroidism On: 22-Voi-526084:01 Request CALCIFEDIOL (71648)Indication: Acquired hypothyroidism On: 13-Eng-090347:01 Request METABOLIC PANEL, COMPREHENSIVE (34351)Indication: Hypertension On: 66-Prg-844001:32 Request TSH (41530)Indication: Acquired hypothyroidism On: 50-Nsn-708516:31 Request LIPID PANEL (80235)Indication: Mixed hyperlipidemia On: 96-Qqx-988977:31 Request HEPATIC FUNCTION PANEL (40045)Indication: Mixed hyperlipidemia On: 79-Ymg-339114:09 Request LIPID PANEL (45134)Indication: Mixed hyperlipidemia On: 11-Pjl-432035:09 Request URINE ANN CULTURE-FILOMENA COL COUNT (92265)Indication: Low back pain On: 25-Dad-325900:33 Request CBC WITH MANUAL DIFF (31183)Indication: Hypertension On: 18-Zwb-357058:06 Request METABOLIC PANEL, COMPREHENSIVE (61766)Indication: Hypertension On: 54-Tmi-856081:06 Request TSH (28584)Indication: Acquired hypothyroidism On: 26-Ahp-708228:06 Request LIPID PANEL (31037)Indication: Mixed hyperlipidemia On: 67-Jed-500510:06 Request URINALYSIS, W/ MICRO (68227)Indication: Hypertension On: 24-Tum-809162:12 Request TSH (35279)Indication: Acquired hypothyroidism On: 44-Aau-947198:12 Request METABOLIC PANEL, COMPREHENSIVE (38400)Indication: Hypertension On: 76-Fpa-490102:12 Request LIPID PANEL (52769)Indication: Mixed hyperlipidemia On: 77-Lrv-032570:12 Request HEPATIC FUNCTION PANEL (96902)Indication: Mixed hyperlipidemia On: 2-Qfv-380120:03 Request LIPID PANEL (55723)Indication: Mixed hyperlipidemia On: 6-Rhd-068517:03 Request LIPID PANEL (41419)Indication: Mixed hyperlipidemia On: 3-Grl-639358:50 Request TSH (88445)Indication: Acquired hypothyroidism On: 4-Mpa-460911:49 Request METABOLIC PANEL, COMPREHENSIVE (70423)Indication: Hypertension, benign On: 5-Gqq-233733:49 Request URINE ANN CULTURE (FILOMENA COL COUNT) (65920)Indication: Pain in unspecified hip On: 51-Kmo-397403:16 Request TSH (62451)Indication: Acquired hypothyroidism On: 50-For-044918:51 Request METABOLIC PANEL, COMPREHENSIVE (37806)Indication: Hypertension, benign On: 6-Lst-205131:58 Request HEPATIC FUNCTION PANEL (94250)Indication: Mixed hyperlipidemia On: 4-Jok-677161:58 Request LIPID PANEL (37954)Indication: Mixed hyperlipidemia On: 8-Pcp-106853:58 Request TSH (90189)Indication: Acquired hypothyroidism On: 9-Yce-942373:54 Request HEPATIC FUNCTION PANEL (10132)Indication: Mixed hyperlipidemia On: 45-Bll-465536:40 Request LIPID PANEL (88153)Indication: Mixed hyperlipidemia On: 97-Bfo-961425:40 Request Anti-TPO Antibody (06639)Indication: Abnormal TSH On: 14-Rre-255308:31 Request T4, TOTAL (42156)Indication: Abnormal TSH On: 93-Mei-497431:30 Request T4, FREE (47724)Indication: Abnormal TSH On: 70-Qtb-699298:30 Request TSH (59376)Indication: Abnormal TSH On: 02-Bdi-078509:30 Request CBC WITH MANUAL DIFF (67721)Indication: Hypertension, benign On: :29 Request METABOLIC PANEL, COMPREHENSIVE (05582)Indication: Hypertension, benign On: :28 Request Lipase (98613)Indication: Nausea On: :02 Request Amylase (21287)Indication: Nausea On: 8-Eyh-095790:02 Request URINALYSIS W/O MICRO (10722)Indication: Dizziness and giddiness On: :58 Request TSH (99793)Indication: Dizziness and giddiness On: :58 Request METABOLIC PANEL, COMPREHENSIVE (50539)Indication: Dizziness and giddiness On: :57 Request CBC WITH MANUAL DIFF (10804)Indication: Dizziness and giddiness On: :57 Request HEPATIC FUNCTION PANEL (59069)Indication: Mixed hyperlipidemia On: :59 Request LIPID PANEL (96837)Indication: Mixed hyperlipidemia On: :59 Request URINALYSIS W/O MICRO (94756)Indication: Hypertension, benign On: 7-Iag-370254:05 Request TSH (89473)Indication: Hypertension, benign On: 6-Zws-107506:05 Request CBC WITH MANUAL DIFF (05533)Indication: Hypertension, benign On: 0-Oeu-731536:05 Request METABOLIC PANEL, COMPREHENSIVE (58816)Indication: Hypertension, benign On: 8-Clg-119480:05 Request LIPID PANEL (48208)Indication: Mixed hyperlipidemia On: 6-Oat-639823:04 Request HEPATIC FUNCTION PANEL (80424)Indication: Mixed hyperlipidemia On: 1-Bvj-272878:04 Request URINE ANN CULTURE-IDENTIFICATN (36975)Indication: Hematuria On: 73-Lcx-283892:57 Request URINALYSIS (59735)Indication: Hematuria On: 67-Hop-498890:57 Request URINE ANN CULTURE-IDENTIFICATN (23647)Indication: Hematuria On: 35-Yhe-786655:56 Request Comments: if neg- ct of abdomen and pelvis URINALYSIS (98149)Indication: Hypertension On: 01-Xdu-229421:04 Request TSH (77997)Indication: Hypertension On: 45-Vub-091672:03 Request CBC WITH MANUAL DIFF (32769)Indication: Hypertension On: :03 Request METABOLIC PANEL, COMPREHENSIVE (44631)Indication: Hypertension On: : Request LIPID PANEL (02277)Indication: Mixed hyperlipidemia On: : Request Planned Procedures Flu Vaccine (Quadrivalent) On: 17-Feb-2018 Intent 54872Ji: Belinda May Comments: Lot #[id number]-L dltd, IMAmount: 0.5mlVIS reviewed and ABN signedgiven by:Belinda May, CCMAVIS reviewed and ABN signed CHEST XRAY, PA & LATERAL On: 10-Nov-2017 Intent (47998)By: Louise Darby Spirometry (31383)By: On: 10-Nov-2017 Intent Louise Darby Comments: Normal X-RAY RIGHT WRIST, 3+ VIEWS On: 01-Sep-2017 Intent (19898)By: Lilliana Mishra DO Tad DO, Lilliana Radiology - Wrist - LeftBy: On: 01-Sep-2017 Intent Tad RIOS, Lilliana Tad DO, Lilliana X-RAY OF COCCYX, TWO VIEWS On: 01-Sep-2017 Intent (97060)By: Lilliana Mishra DO Tad DO, Lilliana PNEUM VAC ADLT/IMUMNOSPR, On: 29-Apr-2017 Intent SBC/INTRM (50452)By: Tad Comments: pneumovax prefilled syringe injectionlot: [id number]: 07/05/2018L DELT IMpt tolerated wellAD SKIMMER DO, Lilliana Tad DO, Lilliana Flu Vaccine (Quadrivalent) On: 29-Jan-2017 Intent 20263Xe: Lilliana Mishra DO Comments: lot: [id number]: 09/01/17ite/route: L david, IMamt: 0.5mlVIS and ABN signed when applicableChelsALISHA mercedes DOLilliana ORTHOSTATIC BLOOD PRESSURE On: 22-Aug-2016 Intent ASSESSMENT (84366)By: Wilner, Comments: Negative Louise ULTRASOUND AORTA (20761)By: On: 18-Jul-2016 Intent Lilliana Mishra DO TadLilliana chan DO EMGBy: Amy Coppola CNP On: 18-Oct-2014 Intent Nerve ConductionBy: Abdon MAGAÑA, On: 18-Oct-2014 Intent Amy Price Radiology - Wrist - RightBy: On: 18-Oct-2014 Intent Amy Coppola CNP FLU VAC, SPLIT, >3 YEARS, On: 12-Jan-2013 Intent INTRAMUSC (20519)By: Nathan, Comments: Lot:[id number]:Dose:0.5mLRoute:IMSite:L DltdGiven By:YOUNG Wyatt IMMUNIZ ADMNIN, 1 VAC, On: 12-Jan-2013 Intent SNGL/COMBO (28224)By: Yoselin Evans Eprescribed prescriptions On: 04-Jan-2013 Intent (G8553)By: Mignon Irving EKG (11976)By: Regina, On: 06-Apr-2012 Intent Mercedez Comments: ekg showed normal sinus rhythym, normal axis, no acute st/t wave changes Eprescribed prescriptions On: 06-Apr-2012 Intent (G8553)By: Mercedez Tapia Eprescribed prescriptions On: 17-Feb-2012 Intent (G8553)By: Louise Hahn LPN FLU VAC, SPLIT, >3 YEARS, On: 02-Dec-2011 Intent INTRAMUSC (51853)By: Regina, Comments: Lot #[id number]-4/30/13Site-left deltoidgiven by: MACO Monge Radiology - Hip - BilateralBy: On: 02-Dec-2011 Intent Mayra Pérez DO IMMUNIZ ADMNIN, 1 VAC, On: 02-Dec-2011 Intent SNGL/COMBO (51685)By: Mercedez Tapia ZOSTER VACC, HI (75668)By: On: 08-Aug-2011 Intent Mercedez Tapia Eprescribed prescriptions On: 29-Jul-2011 Intent (G8553)By: Beto RIOS Mayra A EKG (40708)By: Regina, On: 01-Apr-2011 Intent Mercedez Comments: ekg showed normal sinus rhythym, normal axis, no acute st/t wave changes FLU VAC, SPLIT, >3 YEARS, On: 01-Apr-2011 Intent INTRAMUSC (99340)By: Regina, Comments: alicia Mercedez TDAP VACCINE >7 IM (29407)By: On: 31-Jul-2010 Intent Mast Loly COYLE Comments: Lot #:[id number] date: 05/27Amount given: 0.5 mlRoute: IMSite given: left deltoidGiven by: Son Marrero RN FLU VAC, SPLIT, >3 YEARS, On: 20-Feb-2010 Intent INTRAMUSC (33374)By: Mercedez Tapia IMMUNIZ ADMNIN, 1 VAC, On: 20-Feb-2010 Intent SNGL/COMBO (08931)By: Regina, Comments: Lot #[id number]-L armDose0.5mlgiven by:SKYLA Newsome Radiology - Lumbar SpineBy: On: 25-Jul-2009 Intent Fast DO, Mayra A EKG (40686)By: Regina, On: 13-Feb-2009 Intent Mercedez Comments: ekg showed normal sinus rhythym, normal axis, no acute st/t wave changes Radiology - Hip - RightBy: On: 23-Jun-2007 Intent Fast DO, Mayra A Radiology - Lumbar SpineBy: On: 23-Jun-2007 Intent Fast DO, Mayra A FLU VAC, SPLIT, >3 YEARS, On: 03-Feb-2007 Intent INTRAMUSC (75732)By: Catia Clement Comments: Lot #[id number] Exp-09/14/07Site-left deltoid Dose0.5ccgiven by Paul Clement LPN IMMUNIZ ADMNIN, 1 VAC, On: 03-Feb-2007 Intent SNGL/COMBO (77580)By: Catia Clement EKG (63108)By: Regina, On: 14-May-2006 Intent Mercedez Comments: done-jjpekg [...] 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
--- OUTSIDE RECORDS SUMMARY | 2018-06-05 22:09 | XMS RPT_ITS | Continuity of Care Document ---
:1950 Author Organization [facility] Address [facility] [address] [place] [address] Phone Care Team Providers Name Role Phone Tad DO Lilliana Unavailable Flako SALAZAR, Yahaira Kuhn Unavailable Beto Mayra Son Unavailable Dimitris SALAZAR, Dr. Alex Dunlap Unavailable Pascual Knutson Unavailable MACO Hahn Unavailable Unavailable Louise Darby Unavailable Unavailable Lang [...] age and overwhelmed busy. ? anxiety. workign [facility] pascual sow. i will talk to Dr. [...] 783.1) Status: Active Medications Name Dates Details Amoxicillin-Pot Clavulanate 875-125 MG Oral Tablet 1 Tablet bid for 14 days Quantity: 28 {Tablet} Refills: 0 Ordered:02-Feb-2018 Louise Darby Start : 02-Feb-2018 Active ASPIRIN LOW DOSE, 81MG (Oral Tablet) 1 [...] days Quantity: 30 {Tablet} Refills: 0 Ordered:09-Sep-2017 Genoveva Kyra Start : 09-Sep-2017 Active Pantoprazole Sodium 40 MG Oral Tablet Delayed Release 1 (one) Tablet DR daily for 0 days Quantity: 30 {Tablet} Refills: 0 Ordered:16-Oct-2017 Amy Coppola CNP Start : 16-Oct-2017 Active Pantoprazole Sodium 40 MG Oral Tablet Delayed Release 1 (one) Tablet DR daily for 0 days Quantity: 90 {Tablet} Refills: 3 Ordered:16-Oct-2017 Ciesa Amy MAGÑAA Start : 16-Oct-2017 Active Synthroid 100 MCG Oral Tablet 1 (one) Tablet qdaily but /2 on friday for 90 days Quantity: 90 [...] for 14 days Refills: 0 Ordered:15-May-2010 Abdon MAGAÑA Brittany Start : 28-Feb-2010 End : 14-Mar-2010 Inactive Apple cider vinegar tablet daily Inactive Azithromycin 1 GM Oral Packet 1 (one) Packet TAD for 0 days Quantity: 1 {Packet} Refills: 0 Ordered:02-Feb-2018 Louise Hahn LPN Start : 10-Nov-2017 End : 02-Feb-2018 Inactive Cefadroxil 500 MG Oral Capsule 1 (one) Capsule bid for 7 days Quantity: 14 {Capsule} Refills: 0 Ordered:26-Jun-2016 Abdon MAGAÑA Brittany Start : 26-Jun-2016 End : 03-Jul-2016 Inactive [...] bid for 14 days Refills: 0 Ordered:15-May-2010 Abdon MAGAÑA Brittany Start : 28-Feb-2010 End : 14-Mar-2010 Inactive [...] days Quantity: 30 {Tablet} Refills: 0 Ordered:12-Mar-2017 UmeshSHELBYEDITH Start : 22-Aug-2016 End : 12-Mar-2017 Inactive [...] days Refills: 0 Ordered:25-Jul-2009 Chapis Tapiactive ZOSTAVAX, 81954SGU/0.65ML (Subcutaneous Solution Reconstituted) 1 (one) For Solution [...] days Quantity: 2 {Tablet} Refills: 0 Ordered:06-Apr-2012 Fast Mayra Start : 06-Apr-2012 End : 06-Apr-2012 Discontinued PREVACID, 30MG (Oral Capsule Delayed Release) [address] QD for 0 days Quantity: 90 {Capsule_DR} Refills: 3 Ordered:31-Jul-2006 Caita Clement Start : 31-Jul-2006 End : 20-Aug-2006 Discontinued SIMVASTATIN, 40MG (Oral Tablet) 1 (one) Tablet qd for 0 days Quantity: 90 {Tablet} Refills: 3 Ordered:13-Feb-2009 Beto RIOSMayra A Start : 13-Feb-2009 End : 13-Feb-2009 [...] 30 {Tablet} Refills: 3 Ordered:06-Apr-2012 Fast Mayra A Start : 06-Apr-2012 End : 06-Apr-2012 [...] and Lateral Result: Comments: See Note; NOTES: [facility] Imaging Services [address] [place] [address] Chest PA and Lateral MR#: [id number] Acct: [id number] Name: PAMELA GUTIERREZ Rep #: [id number] : 1950 F 67 From: Dylan Amado MD PCP: Lilliana Mishra DO Status: REG CLI Study: Chest PA and Lateral Date of Exam: 11/10/17 Exam# [id number] Ordering Dr: Louise Darby SAFETY LEAD-C STUDY: X- RAY CHEST REASON FOR EXAM: [...] Fax CC: LAZARO Darby; Lilliana Mishra DO Wet Inspector Optical Glass: Signed 01-Sep-2017 Sacrum-Coccyx min 2 Views Result: Comments: See Note; NOTES: [facility] Services [address] [facility] [place] [address] Sacrum-Coccyx min 2 Views MR#: [id number] Acct: [id number] Name: PAMELA GUTIERREZ Son Rep #: [id number] : 1950 F 67 From: Mikael Alexander MD PCP: Lilliana Mishra DO Status: REG CLI Study: Sacrum-Coccyx min 2 Views Date of Exam: 09/01/17 Exam# [id number] Ordering Dr: Lilliana Mishra DO UDY: X-RAY [...] Service support , CC: Lilliana Mishra DO Wet Inspector Optical Glass: Signed 01-Sep-2017 Wrist min 3 Views Result: Comments: See Note; NOTES: [facility] Imaging Services [address] [place] [address] Wrist min 3 Views MR#: [id number] Acct: [id number] Name: PAMELA GUTIERREZ Rep #: [id number] : 1950 F 67 From: Mikael Alexander MD PCP: Lilliana Mishra DO Status: REG CLI Study: Wrist min 3 Views Date of Exam: 09/01/17 Exam# [id number] Ordering Dr: Lilliana Mishra DO STUDY: X-RAY [...] 20:42 EDT , Service support , CC: Lililana Mishra DO Wet Inspector Optical Glass: Signed 01-Sep-2017 Wrist min 3 Views Result: Comments: See Note; NOTES: [facility] Imaging Services [address] [place] [address] Wrist min 3 Views MR#: [id number] Acct: [id number] Name: PAMELA GUTIERREZ Rep #: [id number] : 1950 F 67 From: Mikael Alexander MD PCP: Lilliana Mishra DO Status: REG CLI Study: Wrist min 3 Views Date of Exam: 09/01/17 Exam# [id number] Ordering Dr: Lilliana Mishra DO STUDY: X-RAY [...] Service support , CC: Lilliana Mishra DO Wet Inspector Optical Glass: Signed 08-Mar-2017 Urgent Care Visit Report Result: Comments: See Note; NOTES: [facility] [address] [place] [address] OFFICE VISIT Date of Service: 03/08/17 MR#: [id number] Acct: [id number] Name: PAMELA GUTIERREZ Re p #: [id number] : 1950 Provider: NAISA Santamaria Age/Sex: 66/F Location: [facility] Status: Signed Intake Intake Visit Reasons: sinus Is patient in pain?: No Allergies No Known Allergies Allergy (Verified 03/08/17 13:51) Medications Escitalopram Oxalate [Lexapro] 5 mg PO DAILY 07/11/14 [History Confirmed 03/08/17] Levothyroxine [Synthroid] 25 mcg PO DAILY 07/11/14 [History Confirmed 7] Lisinopril [Zestril] 2.5 mg PO DAILY 07/11/14 [History Confirmed 03/08/17] Pantoprazole Sodium [Protonix] 40 mg PO DAILY 07/11/14 [History Confirmed 03/08/17] reogpunkmczugan-muyoykwrwtnekos-TR 2 mg- 30 mg-10 mg/5 mL syrup [...] person, oriented to place, oriented to time [facility] Head: normoceph alic Ears: external ears normal, [...] R05 03/08/17 1413 <Electronically signed by Alejo MÉNDEZ> Date Alejo MÉNDEZ Cosigner Signature: Date (if applicable) CC: 19-Jul-2016 Aorta Result: Comments: See Note; NOTES: [facility] Imaging Services [address] [place] [address] [place] [address] Verdana 4d Aorta MR#: [id number] Acct: [id number] Name: PAMELA GUTIERREZ Rep #: [id number] OB: 1950 F 65 From: Hi Reynoso MD PCP: Lilliana Mishra DO Status: REG CLI Study: Aorta Date of Exam: 07/19/16 Exam# [id number] Ordering Dr: Lilliana Mishra DO PROCEDURES: ULTRASOUND [...] Hi Reynoso MD at 9:24 EDT Tel [phone], Service support , CC: Lilliana Mishra DO Wet Inspector Optical Glass: Signed 18-Oct-2014 Wrist min 3 Views Result: Comments: See Note; NOTES: [facility] Imaging Services [address] [place] [address] Radiology Report MR#: [id number] Acct: [id number] Name: PAMELA GUTIERREZ Rep #: [id number] : 1950 F 64 From: Hi Reynoso MD PCP: Mayra Pérez DO Status: REG CLI Study: Wrist min 3 Views Date of Exam: 10/18/14 Exam# [id number] Ordering Dr: Amy Coppola STUDY: X-RAY - [...] Hi Reynoso MD at 16:02 EDT Tel [phone], Service support [phone], RAD/Wrist mi n 3 Views IMPRESSION: Normal x-ray examination of the wrist. Electronically Signed: Hi Reynoso MD at 16:02 EDT Tel [phone], Service support [phone], CC: Amy Coppola; Mayra Pérez DO Wet Inspector Optical Glass: Signed 17-Jul-2014 Emergency Department Summary Result: Comments: See Note; NOTES: [facility] Medical Records Department [address] [place] [address] Emergency Department Summary MR#: [id number] Acct: [id number] Name: PAMELA GUTIERREZ Rep #: [id number] : 1950 63 From: Ronald Payne MD PCP: Mayra Pérez DO Status: DEP ER DATE OF SERVICE: 07/11/2014 CHIEF COMPLAINT: Left wrist pain and knee pain. HISTORY OF [place] ES[place] ILLNESS: The patient was in an [...] medicine here to go. She will use fkic-poo-veyduev ice, elevation may help. Follow up within [...] Berry C: [facility] Ronald Langston MD T: ASHANTI JOB: [id number] 07/17/14 1528 <Electronically signed by Ronald Payne MD> Date Ronald Payne MD CC: Mayra Pérez DO; Ronald Langston MD; [employer] Date Dictated: 07/11/142249 Date Transcribed: 07/11/142249 Wet Inspector Optical Glass: Signed 11-Jul-2014 Discharge Instruction Result: Comments: See Note; NOTES: [facility] Medical Records Department [address] [place] [address] Discharge Instruction 07/11/142130 MR#: [id number] Acct: [id number] Name: PAMELA GUTIERREZ Rep #: [id number] : 1950 63 From: Ronald Payne MD [...] [facility] ) or report to the [facility] Emergency Room. Call 911 if necessary. 07/11/142131 <Electronically signed by Ronald Payne MD> Date Ronald Payne MD Cos igner Signature (If Indicated): Date CC: Mayra Pérez DO 11-Jul-2014 Wrist min 3 Views Result: Comments: See Note; NOTES: [facility] Imaging Services [address] [place] [address] Radiology Report MR#: [id number] Acct: [id number] Name: PAMELA GUTIERREZ Rep #: [id number] : 1950 F 63 From: Hi Reynoso MD PCP: Mayra Pérez DO Status: DEP ER Study: Wrist min 3 Views Date of Exam: 07/11/14 Exam# [id number] Ordering Dr: Ronald Payne MD STUDY: X-RAY [...] Hi Reynoso MD at 9:18 EDT Tel [phone], Service support [phone], RAD/Wrist min 3 Views IMPRESSION: I suspect a nondisplaced linear fracture involving the distal radial metaphysis with extension to the articular surface. Soft tissue swelling. Electronically Signed: Hi Reynoso MD at 9:18 EDT Tel [phone], Service support [phone], CC: Mayra Pérez DO; Ronald Payne MD Wet Inspector Optical Glass: Signed 22-Oct-2013 EKG (97323) Comments: ekg showed normal sinus rhythym, normal axis, no acute st/t wave changes biphasic twave otherwise no change Result: [MEASUREMENTS ANALYSIS] Date of Test: 10/22/2013 14:05:39; Heart Rate: 67; OK Interval: 154; QRS: 90; QT Interval: 388; Corrected QT Interval (QTc): 400; P Wave Milton: 31; QRS Wave Milton: -15; T Wave Milton : 1; Blood Pressure: 112/72 [ECG DIAGNOSTIC STATEMENTS] Date of Test: 10/22/2013 14:05:39; Summary: Sinus Rhythm - Diffuse nonspecific T-abnormality. ABNORMAL Immunization Name Dates Details Influenza (3 years and up) on: 03-Feb-2007 Comments: Lot #[id number] Exp-09/14/07Site-left deltoid Dose0.5ccgiven by Paul Clement LPN [...] smoker Vital Signs Date Test Result Details 23-Izh-580993:15 Temperature 97.7 f Comments: Method: Temporal Pulse [...] kg/m2 Body Surface Area Calculated 2.03 m2 43-Fpo-699826:56 Temperature 97.6 f Comments: Method: Temporal Pulse [...] 0.00 cm Results Date Description Value Details :40 TSH (73138) Comments: PATIENT WAS FASTINGPERFORMED BY: [facility] [id number] BY: [facility]6370 [facility] [id number]; fu 18 KF TSH 0.340 {uIU/mL} (Abnormal) Range: 0.450-4.500 56-Gto-659890:40 CALCIFIDIOL (92930) VIT D Comments: PATIENT WAS FASTINGPERFORMED BY: [employer] [id number] BY: [facility] Fbwfyi5469 [facility] [id number] 25 Vitamin D, 25-Hydroxy 37.6 ng/mL (Normal) Range: 30.0-100.0 Comments: Vitamin D deficiency has been defined by the [place] ofMedicine and an Endocrine Society practice guideline as alevel of serum 25-OH vitamin D less than 20 ng/mL (1,2).The Endocrine Society went on to further define vitamin Dinsufficiency as a level between 21 and 29 ng/mL (2).1. IOM ([place] of Medicine). 2010. Dietary reference intakes for calcium and D. [place]: The National Academies Press.2. Fletcher MF, Edgardo NC, Dina KAPLAN, et al. Evaluation, treatment, and prevention of vitamin D deficiency: an Endocrine Society clinical practice guideline. JCEM. 2010; 96(7):1911-30. 72-Uaw-076075:40 LIPOPROTEIN, BLD, BY NMR Comments: PATIENT WAS FASTINGPERFORMED BY: [facility] [id number] BY: [facility]6370 [facility] [id number] (40376) LP-IR Score 71 (Abnormal) Comments: INSULIN RESISTANCE MARKER <--Insulin Sensitive Insulin Resistant--> Percentile in Reference PopulationInsulin Resistance ScoreLP-IR Score Low 25th 50th 75th High <27 27 45 63 >63LP-IR Score is inaccurate if patient is non-fasting. .The LP-IR score is a laboratory developed i [facility] that has beenassociated with insulin resistance [...] were developed and their performance characteristicsdetermined by [employer]. These assays have not been cleared by [...] 1600 - 2000 Very High > 2000 38-Dwo-090113:40 METABOLIC PANEL, Comments: PATIENT WAS FASTINGPERFORMED BY: [facility]1447 [facility] [id number] BY: [employer] Krikrn8620 [facility] [id number] [facility] ([address]96) ALT (SGPT) 16 [iU]/L (Normal) Range: 0-32 [...] 8-27 Glucose 85 mg/dL (Normal) Range: 65-99 27-Goi-553583:40 CBC with auto diff Comments: PATIENT WAS FASTINGPERFORMED BY: [employer] X[address] [id number] BY: LabCoMarlton Rehabilitation HospitalKcuand7185 [facility] [id number] (40160) Immature Grans (Abs) 0.0 {x10E3/uL} (Normal) Range: [...] 3.77-5.28 WBC 4.8 {x10E3/uL} (Normal) Range: 3.4-10.8 04-Vsw-547388:43 Microscopic Examination Comments: PATIENT WAS FASTINGPERFORMED BY: [facility]6370 [facility] [id number] Bacteria None seen (Normal) Mucus Threads Present (Normal) Epithelial Cells (non renal) 0-10 {/hpf} (Normal) Range: 0 - 10 RBC None seen {/hpf} (Normal) Range: 0 - 2 WBC 0-5 {/hpf} (Normal) Range: 0 - 5 :43 CALCIFEDIOL (63009) Comments: PATIENT WAS FASTINGPERFORMED BY: [facility] Access SolutionsPresbyterian Santa Fe Medical CenterTaipih3652 [facility] [id number] Vitamin D, 25-Hydroxy 68.6 ng/mL (Normal) Range: 30.0-100.0 Comments: Vitamin D deficiency has been defined by the [place] ofDel[facility] Hospitalcine and an Endocrine Society practice guideline as alevel of serum 25-OH vitamin D less than 20 ng/mL (1,2).The Endocrine Society went on to further define vitamin Dinsufficiency as a level between 21 and 29 ng/mL (2).1. IOM ([place] of [place]). 2010. Dietary reference intakes for calcium and D. [place]: The National Academies Press.2. Fletcher MF, Edgardo COOL, Dina KAPLAN, et al. Evaluation, treatment, and prevention of vitamin D deficiency: an Endocrine Society clinical practice guideline. JCEM. 2010; 96(7):1911-30. :43 TSH (90883) Comments: PATIENT WAS FASTINGPERFORMED BY: [employer] Bhmjct2062 [facility] [id number] TSH 4.800 {uIU/mL} (Abnormal) Range: 0.450-4.500 :43 URINALYSIS, W/ MICRO (61504) Comments: PATIENT WAS FASTINGPERFORMED BY: [employer] Iywqjc8178 [facility] [id number] Microscopic Examination See below: (Normal) Comments: Microscopic was indicated and was performed. Nitrite, Urine Negative (Normal) Urobilinogen,Semi-Qn 0.2 mg/dL (Normal) Range: 0.2-1.0 Bilirubin Negative (Normal) Occult Blood 1+ (Abnormal) Ketones Negative (Normal) Glucose Negative (Normal) Protein Negative (Normal) WBC Esterase Trace (Abnormal) Appearance Clear (Normal) Urine-Color Yellow (Normal) pH 6.0 (Normal) Range: 5.0-7.5 Specific [place] 1.013 (Normal) Range: 1.005-1.030 :43 MICROALBUMIN: CREATININE RATIO Comments: PATIENT WAS FASTINGPERFORMED BY: Patient Access SolutionsMarlton Rehabilitation HospitalSeqhlv7480 [facility] [id number] (44200) AND (45905) Microalb/Creat Ratio <4.4 {mg/g_creat} (Normal) Range: 0.0-30.0 Microalbumin, Urine <3.0 ug/mL (Normal) Creatinine, Urine 67.5 mg/dL (Normal) :43 METABOLIC PANEL, COMPREHENSIVE Comments: PATIENT WAS FASTINGPERFORMED BY: MARCIE [employer] Ppqfml9582 [facility] [id number] (89836) ALT (SGPT) 21 [iU]/L (Normal) Range: 0-32 [...] Glucose, Serum 87 mg/dL (Normal) Range: 65-99 :43 LIPID PANEL (28730) Comments: PATIENT WAS FASTINGPERFORMED BY: LabCoMarlton Rehabilitation HospitalPpxfur8706 [facility] [id number] LDL/HDL Ratio 2.1 {ratio_units} (Normal) Range: 0.0-3.2 Comments: LDL/HDL Ratio Men Women 1/2 Avg.Risk 1.0 1.5 Av g.Risk 3.6 3.2 2X Avg.Risk 6.2 5.0 3X Avg.Risk 8.0 6.1 LDL Cholesterol Calc 81 mg/dL (Normal) Range: 0-99 VLDL Cholesterol Jorge 20 mg/dL (Normal) Range: 5-40 HDL Cholesterol 38 mg/dL (Abnormal) Triglycerides 102 mg/dL (Normal) Range: 0-149 Cholesterol, Total 139 mg/dL (Normal) Range: 100-199 00-Zcp-808236:43 CBC W/AUTO DIFF WBC (76399) Comments: PATIENT WAS FASTINGPERFORMED BY: [employer] Kjxfkq3835 [facility] [id number] Immature Grans (Abs) 0.0 {x10E3/uL} (Normal) Range: [...] {x10E3/uL} (Normal) Range: 3.4-10.8 :33 C-REACTIVE PROTEIN (15236) Comments: PATIENT NOT FASTINGPERFORMED BY: Patient Access SolutionsMarlton Rehabilitation HospitalUkziwu6914 [facility] [id number] C-Reactive Protein, Quant 0.7 mg/L (Normal) Range: 0.0-4.9 :33 SED RATE ERYTHROCYTE (51558) Comments: PATIENT NOT FASTINGPERFORMED BY: Patient Access SolutionsMarlton Rehabilitation HospitalLviwla7777 [facility] [id number] Sedimentation Rate-Westergren 3 mm/h (Normal) Range: 0-40 :33 CBC, PLATELETS & AUT DIFF Comments: PATIENT NOT FASTINGPERFORMED BY: Patient Access SolutionsMarlton Rehabilitation HospitalSzuxcj6143 [facility] [id number] Information: [id number] (92740) Immature Grans (Abs) 0.0 {x10E3/uL} (Normal) Range: [...] 3.77-5.28 WBC 5.6 {x10E3/uL} (Normal) Range: 3.4-10.8 5-Hta-897721:33 METABOLIC PANEL, COMPREHENSIVE Comments: PATIENT NOT FASTINGPERFORMED BY: [facility] Kksvzn7458 [facility] [id number] (13665) ALT (SGPT) 18 [iU]/L (Normal) Range: 0-32 [...] mg/dL (Normal) Range: 65-99 :26 ANN CULTURE-STOOL (65251) Comments: PATIENT NOT FASTINGPERFORMED BY: [place] 8363070 [facility] [id number] Information: SRC:ST SRC:ST E coli Shiga Toxin EIA Negative (Normal) Result 1 NCI (Normal) Comments: No Campylobacter species isolated. Campylobacter Culture Final report (Normal) Result 1 NSS (Normal) Comments: No Salmonella or Shigella recovered. Salmonella/Shigella Screen Final report (Normal) :26 Clostridium difficile Toxin Comments: PATIENT NOT FASTINGPERFORMED BY: [facility] Hospital6370 [facility] [id number] A+B, EIA (38149) C difficile Toxins A+B, EIA Negative (Normal) :26 LEUKOCYTE COUNT, FECAL (92555) Comments: PATIENT NOT FASTINGPERFORMED BY: [facility]6370 [facility] [id number] Result 1 NWBC (Normal) Comments: No white blood cells seen. White Blood Cells (WBC), Final report (Normal) Stool :26 OVA & PARASITE DIR SMEAR Comments: PATIENT NOT FASTINGPERFORMED BY: [place] 8363070 [facility] [id number] (62273) Result 1 NOCP (Normal) Comments: No ova, cysts, or parasites seen. Ova + Parasite Exam Final report (Normal) Comments: These results were obtained using wet preparation(s) and trichromestained smear. This test does not include testing for Cryptosporidiumparvum, Cyclospora, or Microsporidia. :44 TSH (81743) Comments: PATIENT WAS FASTINGPERFORMED BY: [facility]6370 [facility] [id number] TSH 1.290 {uIU/mL} (Normal) Range: 0.450-4.500 :44 CBC W/AUTO DIFF WBC (24018) Comments: PATIENT WAS FASTINGPERFORMED BY: [facility]6370 [facility] [id number] Immature Grans (Abs) 0.0 {x10E3/uL} (Normal) Range: [...] 3.77-5.28 WBC 5.6 {x10E3/uL} (Normal) Range: 3.4-10.8 81-Ixu-496863:44 METABOLIC PANEL, COMPREHENSIVE Comments: PATIENT WAS FASTINGPERFORMED BY: [facility]6370 [facility] [id number] (71388) ALT (SGPT) 10 [iU]/L (Normal) Range: 0-32 [...] Glucose, Serum 91 mg/dL (Normal) Range: 65-99 60-Fjl-577961:44 LIPID PANEL (73081) Comments: PATIENT WAS FASTINGPERFORMED BY: LabCoMarlton Rehabilitation HospitalTqxtgw2247 [facility] [id number]; non-emergent till apt tomorrow LDL/HDL Ratio 3.3 [...] Cholesterol, Total 246 mg/dL (Abnormal) Range: 100-199 10-Lzo-10435:59 TSH (64427) Comments: PATIENT WAS FASTINGPERFORMED BY: [facility] Jbgxfs1935 [facility] [id number] TSH 0.081 {uIU/mL} (Abnormal) Range: 0.450-4.500 :59 Vitamin D Hydroxy (88340) Comments: PATIENT WAS FASTINGPERFORMED BY: [facility] Vbqkem7599 [facility] [id number] Vitamin D, 25-Hydroxy 42.0 ng/mL (Normal) Range: 30.0-100.0 Comments: Vitamin D deficiency has been defined by the [place] ofMedicine and an Endocrine Society practice guideline as alevel of serum 25-OH vitamin D less than 20 ng/mL (1,2).The Endocrine Society went on to further define vitamin Dinsufficiency as a level between 21 and 29 ng/mL (2).1. IOM ([place] of Medicine). 2010. Dietary reference intakes for calcium and D. [place]: The National Academies Press.2. Fletcher MF, Edgardo COOL, Dina KAPLAN, et al. Evaluation, treatment, and prevention of vitamin D deficiency: an Endocrine Society clinical practice guideline. JCEM. 2010; 96(7):1911-30. :59 LIPID PANEL (02665) Comments: PATIENT WAS FASTINGPERFORMED BY: LabCoMarlton Rehabilitation HospitalRyszcj8990 [facility] [id number] Information: [id number] LDL/HDL Ratio 2.8 {ratio_units} (Normal) Range: 0.0-3.2 [...] Cholesterol, Total 229 mg/dL (Abnormal) Range: 100-199 09-Pir-551495:56 Allergen, Rast Food Profile Comments: Test performed at:[facility] [address] [place], [place] [address] RAST COMMENT Comment (Normal) Comments: Levels of [...] in this mix are: Blue mussel Fish [place] Shrimp Tuna EGG, WHOLE <0.10 kU/L (Normal) CHOCOLATE <0.10 kU/L (Normal) Comments: Performed at: - [facility] [id number] Director: Vaughn Garsia MD, Phone: [phone] BEEF <0.10 kU/L (Normal) PORK <0.10 kU/L (Normal) SOYBEAN <0.10 kU/L (Normal) PEANUT <0.10 kU/L (Normal) CORN <0.10 kU/L (Normal) WHEAT <0.10 kU/L (Normal) MILK (COW) <0.10 kU/L (Normal) 72-Iiy-66419:38 URINE ANN CULTURE-FILOMENA COL Comments: PATIENT NOT FASTINGPERFORMED BY: LabCoMarlton Rehabilitation HospitalOnmlkn0752 [facility] [id number] Information: SRC:[facility] [id number] COUNT (12987) Antimicrobial MIHEAD (Normal) Comments: S = Susceptible; [...] mL (Abnormal) Urine Final report Culture,Comprehensive (Abnormal) 31-Iaf-331996:11 Urinalysis, Office (43970) UA - LEUKOCYTE ESTERASE Large (Normal) UA - NITRITE Negative (Normal) URINE UROBILINGN FILOMENA TIMED Normal mg/dL (Normal) UA - PROTEIN Negative mg/dL (Normal) UA - PH 5.0 (Normal) UA - BLOOD Non Hemolyzed Moderate (Normal) UA - SPECIFIC GRAVITY 1.015 (Normal) UA - KETONES Negative mg/dL (Normal) UA - BILIRUBIN Negative (Normal) UA - GLUCOSE Negative (Normal) 5-Ymi-321268:33 Comprehensive Metabolic Profil Comments: Test performed at:[facility] Ahuhksqxhn[address] [place], [place] [address] GAP 4 (Abnormal) Range: 5-15 CO2 31.0 [...] 7-18 GLU 89 mg/dL (Normal) Range: 70-110 7-Iwb-369957:33 Lipid Profile Comments: Test performed at:[facility] Rqloagemjm4967 [facility] CenterApoorva [place], [place] [id number] VLDL 31 mg/dL (Normal) Range: 5-40 LDL [...] 200-240 mg/dL Borderline >240 mg/dL High Risk 2-Ejz-996223:33 Thyroid Stim Hormone (TSH) Comments: Test performed at:[facility] Kiekmvyhyl5827 [facility] [place], [place] [id number] TSH 3.03 {uIU/mL} (Normal) Range: 0.358-3.74 :57 TSH (91249) Comments: PATIENT WAS FASTINGPERFORMED BY: [facility] Emxuwt4196 [facility] [facility] [id number] TSH 7.420 {uIU/mL} (Abnormal) Range: 0.450-4.500 :57 METABOLIC PANEL, Comments: PATIENT WAS FASTINGPERFORMED BY: [employer] [facility] Pnowfm9238 [facility] [id number] Information: [id number] COMPREHENSIVE (31129) ALT (SGPT) 10 [iU]/L (Normal) Range: 0-32 [...] mg/dL (Normal) Range: 65-99 :57 LIPID PANEL (00975) Comments: PATIENT WAS FASTINGPERFORMED BY: [facility]CoM[facility] HospitalKelveo5493 [facility] [id number] LDL/HDL Ratio 4.1 {ratio_units} (Abnormal) Range: 0.0-3.2 [...] Cholesterol, Total 280 mg/dL (Abnormal) Range: 100-199 85-Qxx-605168:09 CMP GAP 7 (Normal) Range: 5-15 CO2 [...] 7-18 GLU 85 mg/dL (Normal) Range: 70-110 84-Zmo-962201:09 LIPID VLDL 39 mg/dL (Normal) Range: 5-40 [...] CHOL 260 mg/dL (Abnormal) Comments: <200 mg/dL Dbpbebzsy357-776 mg/dL Borderline>240 mg/dL High Risk 86-Cdw-126471:09 VITD 49.6 mg/mL (Normal) Comments: Vitamin D 25(OH) Status RangeDeficiency <20 ng/mL (50nmol/L)Insuffciency 20 - 30 ng/mL (50 - 75 nmol/L)Sufficiency 30 - 100 ng/mL (75 - 250 nmol/L)Toxicity >100 ng/mL (>250 nmol/L) 29-Kzo-795502:14 CMP GAP 5 (Normal) Range: 5-15 CO2 [...] 7-18 GLU 90 mg/dL (Normal) Range: 70-110 30-Zrg-430906:14 LIPID VLDL 36 mg/dL (Normal) Range: 5-40 [...] CHOL 257 mg/dL (Abnormal) Comments: <200 mg/dL Craecciep701-945 mg/dL Borderline>240 mg/dL High Risk :14 TSH 2.38 {uIU/mL} (Normal) Range: 0.358-3.74 :14 VITD 25.6 mg/mL (Normal) Comments: Vitamin D 25(OH) Status RangeDeficiency <20 ng/mL (50nmol/L)Insuffciency 20 - 30 ng/mL (50 - 75 nmol/L)Sufficiency 30 - 100 ng/mL (75 - 250 nmol/L)Toxicity >100 ng/mL (>250 nmol/L) 06-Rhu-554217:56 Urinalysis, Office (77401) UA - BILIRUBIN Negative (Normal) UA - [...] CHOL 257 mg/dL (Abnormal) Comments: <200 mg/dL Rjusskwmu663-072 mg/dL Borderline>240 mg/dL High Risk :57 TSH 3.02 {uIU/mL} (Normal) Range: 0.358-3.74 :51 LIPID PANEL (35696) Comments: PATIENT WAS FASTINGPERFORMED BY: [employer] [facility] [id number] LDL/HDL Ratio 2.9 {ratio_units} (Normal) Range: 0.0-3.2 [...] METABOLIC PANEL, Comments: PATIENT WAS FASTINGPERFORMED BY: [employer] Mojied9506 [facility] [id number] Information: [id number] COMPREHENSIVE (90651) ALT (SGPT) 11 [iU]/L (Normal) Range: 0-32 [...] Glucose, Serum 85 mg/dL (Normal) Range: 65-99 32-Khy-547345:13 HIP, MIN 2 VIEWS Radiology Report See [...] Reynoso M.D.December 03, 2011 at 12:32:11 PM [id number] Signed GP/GP If you are the referring physician and would like to consult with theradiologist who provided this interpretation, please contact Aishwarya Rendon at [phone]. If this radiologist is unavailable, youwill be directed to another radiologist t o assist. If you are a patient with a question regarding this report, pleasecontactyour referring physician directly. Professional Interpretation Provided By: [employer], Phone ,Fax These documents contain legally protected [...] 1240 Sign b y: Hi Reynoso MD 13-Rvu-508676:13 HIP, MIN 2 VIEWS Radiology Report See [...] Nguyen M.D.December 03, 2011 at 12:33:05 PM [id number] Signed GP/GP If you are the referring physician and would like to consult with theradiologist who provided this interpre tation, please contact Aishwarya Rendon at [phone]. If this radiologist is unavailable, youwill be directed to another radiologist to assist. If you are a patient with a question regarding t his report, pleasecontactyour referring physician directly. Professional Interpretation Provided By: [employer], Phone , These documents contain legally protected [...] documents. Dicta cristiane on 12/02/111710 by Shiva SALAZAR,MaydaeleTranscribed on 12/03/111918 by ITS IMPORTSign by Shiva SALAZAR,Hi on 12/03/111919 Sign by: Shiva SALAZAR,Hi 97-Mxv-07718:48 METABOLIC PANEL, Comments: PATIENT WAS FASTINGPERFORMED BY: [facility]6370 [facility] [id number] Information: [id number] COMPREHENSIVE (83624) ALT (SGPT) 10 [iU]/L (Normal) Range: 0-32 [...] 80 mg/dL (Normal) Range: 65-99 :48 TSH (63933) Comments: PATIENT WAS FASTINGPERFORMED BY: [employer] Njihkd4464 [facility] [id number] TSH 2.860 {uIU/mL} (Normal) Range: 0.450-4.500 :48 LIPID PANEL (68430) Comments: PATIENT WAS FASTINGPERFORMED BY: [employer] [address] Qmsykk5517 [facility] [id number] LDL/HDL Ratio 2.7 {ratio_units} (Normal) Range: 0.0-3.2 LDL Cholesterol Calc 161 mg/dL (Abnormal) Range: 0-99 VLDL Cholesterol Jorge 35 mg/dL (Normal) Range: 5-40 HDL Cholesterol 60 mg/dL (Normal) Comments: According to ATP-III Guidelines, HDL-C >59 mg/dL is considered anegative risk factor for CHD. Triglycerides 174 mg/dL (Abnormal) Range: 0-149 Cholesterol, Total 256 mg/dL (Abnormal) Range: 100-199 :08 [facility] Culture exhibits no growth. (Normal) :08 [...] 10,000 ORGANISM 1: MIXED GRAM POSITIVE ORGANISMS 70-Opc-990080:33 Urinalysis, Office (34096) UA - BILIRUBIN Negative (Normal) UA - [...] NEGATIVE CLARITY CLEAR (Normal) COLOR YELLOW (Normal) 2-Awz-130833:59 LIPID VLDL 39 mg/dL (Normal) Range: 5-40 [...] :59 TSH 3.19 {uIU/mL} (Normal) Range: 0.358-3.74 :15 [...] Very High > or = 500 mg/dL 33-Mdg-04738:17 TSH 3.46 {uIU/mL} (Normal) Range: 0.358-3.74 18-Rtk-102641:37 CULTURE, URINE URINE CULTURE See Note {CFU/mL} Comments: COLONY COUNT 1000- 10,000 ORGANISM 1: MIXED GRAM POSITIVE ORGANISMS (Normal) 33-Flu-553696:37 TSH 0.02 {uIU/mL} (Abnormal) Range: 0.358-3.74 86-Cpg-434231:01 CULTURE, URINE URINE CULTURE See Note (Normal) Comments: Culture exhibits no growth. 85-Wzl-354457:40 L/S SPINE,MIN 4 VIEWS (MT) Radiology Report See Note (Normal) Comments: Exam Number: [id number] LUMBOSACRAL SPINE AP, lateral and oblique views [...] abnormality is seen. Reported By: HI REYNOSO 47-Hzc-871602:14 Urinalysis, Office (89839) UA - LEUKOCYTE ESTERASE Small (Normal) UA [...] CHOL 202 mg/dL (Abnormal) Comments: <200 mg/dL Ejudickic386-210 mg/dL Borderline>240 mg/dL High Risk TRIG 183 mg/dL (Normal) Comments: Serum Triglycerides Reference IntervalNormal <150 mg/dLBorderline high 150 - 199 mg/dLHigh 200 - 499 mg/ dLVery High > or = 500 mg/dL :55 TSH 0.03 {uIU/mL} (Abnormal) Range: 0.358-3.74 12-Ncu-441594:14 CBCD,SMEAR DIFF BAND 3 % (Normal) Range: [...] 4.2-5.4 WBC 4.0 K/mm3 (Abnormal) Range: 4.4-11.0 08-Cov-837389:14 COMP METABOLIC ALK P 58 U/L (Normal) [...] {IU/mL} (Abnormal) Range: 0-34 Comments: Performed At: [facility] [place] [address] [id number] :14 T4 FREE DIRECT 0.7 ng/dL (Abnormal) Range: 0.76-1.146 :14 T4 THYROXIN 5.6 ug/dL (Normal) Range: 4.8-13.9 :14 TSH 5.57 {uIU/mL} (Abnormal) Range: 0.358-3.74 :03 ACTIA 52 U/L (Normal) Range: 25-115 :03 CBCD,SMEAR [...] Range: 70-110 Comments: RESULTS CALLED TO 09/22/071701 JOSELIN CERNA AMENDED REPORT 09/22/071701 GLU previously [...] Report See Note (Normal) Comments: Exam Number: [id number] FIVE VIEW LUMBAR SPINE AP, lateral, both [...] Report See Note (Normal) Comments: Exam Number: [id number] FIVE VIEW LUMBAR SPINE AP, lateral, both [...] degenerative changes. Reported By: CATHIE SALCEDO M.D. 67-Dch-600037:24 CBCD,SMEAR DIFF BASOPHIL 1 % (Normal) Range: [...] 47-70 WBC 4.2 K/mm3 (Abnormal) Range: 4.4-11.0 75-Niv-487546:24 COMP METABOLIC A/G 1.3 {RATIO} (Normal) Range: [...] {uIU/mL} (Normal) Range: 0.34-4.82 :16 Urinalysis, Office (62469) UA - BLOOD Non Hemolyzed Trace (Normal) UA - GLUCOSE Negative (Normal) UA - LEUKOCYTE ESTERASE Trace (Normal) UA - NITRITE Negative (Normal) UA - PH 5.0 (Normal) UA - PROTEIN Negative mg/dL (Normal) UA - SPECIFIC GRAVITY 1.005 (Normal) URINE UROBILINGN FILOMENA TIMED Normal mg/dL (Normal) 43-Rrg-475069:15 COMPLETE UA BACTERIA RARE {/hpf} (Normal) BILIRUBIN [...] (Normal) Range: 0-5 Comments: Result: 0-5 SEEN 78-Rxe-412816:15 CULTURE, URINE URINE CULTURE See Note {CFU/mL} [...] 3.5-5.1 NA 138 mmol/L (Normal) Range: 136-145 26-Krs-008516:35 CBC Comments: COMMENTS: PAT,OR 06/04/06Precautions*: NOT APPLICABLE HCT 36.9 % (Abnormal) Range: 37-47 HGB 12.9 g/dL (Normal) Range: 12.0-16.0 MCH 33.4 pg (Abnormal) Range: 27.0-32.0 MCHC 34.8 g/dL (Normal) Range: 32-36 MCV 95.8 fL (Normal) Range: 81-99 PLT 250 K/mm3 (Normal) Range: 150-450 RBC 3.85 {M/mm3} (Abnormal) Range: 4.2-5.4 RDW 13.9 % (Normal) Range: 11.6-14.6 WBC 5.3 K/mm3 (Normal) Range: 4.4-11.0 16-Coq-427548:18 Urinalysis, Office (63831) UA - BILIRUBIN Negative (Normal) UA - BLOOD Non Hemolyzed Trace (Normal) UA - GLUCOSE Negative (Normal) UA - KETONES Negative mg/dL (Normal) UA - LEUKOCYTE ESTERASE Negative (Normal) UA - NITRITE Negative (Normal) UA - PH 5.0 (Normal) UA - PROTEIN Negative mg/dL (Normal) UA - SPECIFIC GRAVITY 1.025 (Normal) URINE UROBILINGN FILOMENA TIMED Normal mg/dL (Normal) 69-Orb-456850:02 Urinalysis, Office (33966) UA - BILIRUBIN Negative (Normal) UA - BLOOD Non Hemolyzed Trace (Normal) UA - GLUCOSE Negative (Normal) UA - KETONES Negative mg/dL (Normal) UA - LEUKOCYTE ESTERASE Negative (Normal) UA - NITRITE Negative (Normal) UA - PH 5.0 (Normal) UA - PROTEIN Negative mg/dL (Normal) UA - SPECIFIC GRAVITY 1.010 (Normal) URINE UROBILINGN FILOMENA TIMED 2 mg/dL (Normal) 31-Bqk-338959:46 Urinalysis, Office (88811) UA - BILIRUBIN Negative (Normal) UA - BLOOD Hemolyzed Large (Normal) UA - KETONES Negative mg/dL (Normal) UA - LEUKOCYTE ESTERASE Negative (Normal) UA - NITRITE Negative (Normal) UA - PH 5.0 (Normal) UA - PROTEIN Negative mg/dL (Normal) UA - SPECIFIC GRAVITY 1.015 (Normal) URINE UROBILINGN FILOMENA TIMED Normal mg/dL (Normal) 75-Qnd-27736:00 CULTURE, URINE Comments: The date and/or time [...] $$$ >=256 R TRIMETHOPRIM/SULFAMETHOXAZ $$ <=10 S 0-Lqc-395291:05 CBCD,SMEAR DIFF BAND 1 % (Normal) Range: [...] T PROT 6.5 g/dL (Normal) Range: 6.4-8.2 0-Ugk-150661:05 PFLIP CHOL 190 mg/dL (Normal) Comments: <200 [...] mg/dL VLDL 9 mg/dL (Normal) Range: 5-40 4-Psx-926973:05 ROUTINE UA BILIRUBIN URINE SeeNote (Normal) Comments: [...] 0.2 EU/dl (Normal) Range: 0.2 - 1.0 6-Ngm-126245:05 TSH 3.47 {uIU/mL} (Normal) Range: 0.34-4.82 Plan of Care Name Dates Details Instructions Sinusitis, bacterial : Follow up if no [...] Current Prescription(s) Indication: Hypertension Planned Observations TSH (76557)Indication: Abnormal TSH On: 52-Vml-937220:44 Request T4, FREE (THYROXINE) (14037)Indication: Abnormal TSH On: 04-Wbx-520110:44 Request T3, FREE (TRIDOTHYRONINE) (98363)Indication: Abnormal TSH On: 15-Bdy-461734:44 Request TSH (THYROID STIMULATING HORMONE) (92253)Indication: Acquired hypothyroidism On: 11-Xcs-305518:45 Request OCCULT BLOOD FECES SCREEN (78271)Indication: Diarrhea, unspecified type On: 3-Ygi-676560:04 Request Lipid Panel (72939)Indication: Mixed hyperlipidemia On: 15-Bvf-860622:47 Request Comments: september 2016 HEPATIC FUNCTION PANEL (59926)Indication: Mixed hyperlipidemia On: 79-Ckw-046411:12 Request TSH (00758)Indication: Acquired hypothyroidism On: 86-Dpy-549227:08 Request TSH (THYROID STIMULATING HORMONE) (10229)Indication: Acquired hypothyroidism On: 43-Jsj-972428:25 Request Vitamin D Hydroxy (12211)Indication: VITAMIN D DEFICIENCY (Renamed from Avitaminosis D) On: 51-Fui-997575:23 Request METABOLIC PANEL, COMPREHENSIVE (60589)Indication: Hypertension On: 51-Jyd-252527:23 Request LIPID PANEL (40479)Indication: Mixed hyperlipidemia On: 51-Gwv-655075:23 Request Metabolic Panel, Comprehensive (53825)Indication: Hypertension On: 04-Pdh-753085: Request Lipid Panel (08890)Indication: Mixed hyperlipidemia On: : Request TSH (49959)Indication: Acquired hypothyroidism On: 27-Arn-901185: Request CALCIFEDIOL (44332)Indication: Acquired hypothyroidism On: 74-Yhc-462829: Request METABOLIC PANEL, COMPREHENSIVE (62614)Indication: Hypertension On: 05-Irk-551427:32 Request TSH (68053)Indication: Acquired hypothyroidism On: 02-Udn-664991:31 Request LIPID PANEL (32934)Indication: Mixed hyperlipidemia On: 32-Rfo-754431:31 Request HEPATIC FUNCTION PANEL (36460)Indication: Mixed hyperlipidemia On: 45-Mas-249662:09 Request LIPID PANEL (83279)Indication: Mixed hyperlipidemia On: 38-Blj-940341:09 Request URINE ANN CULTURE-FILOMENA COL COUNT (08985)Indication: Low back pain On: 42-Zfv-053419:33 Request CBC WITH MANUAL DIFF (47755)Indication: Hypertension On: 14-Iex-946662:06 Request METABOLIC PANEL, COMPREHENSIVE (82149)Indication: Hypertension On: 11-Izz-953115:06 Request TSH (11736)Indication: Acquired hypothyroidism On: 12-Ncl-576725:06 Request LIPID PANEL (23524)Indication: Mixed hyperlipidemia On: 41-Ttr-805044:06 Request URINALYSIS, W/ MICRO (26959)Indication: Hypertension On: 45-Cja-937150:12 Request TSH (12045)Indication: Acquired hypothyroidism On: 84-Qhg-338559:12 Request METABOLIC PANEL, COMPREHENSIVE (20078)Indication: Hypertension On: 09-Uvx-056419:12 Request LIPID PANEL (20741)Indication: Mixed hyperlipidemia On: 62-Iew-531564:12 Request HEPATIC FUNCTION PANEL (96040)Indication: Mixed hyperlipidemia On: 1-Sbu-003034:03 Request LIPID PANEL (92302)Indication: Mixed hyperlipidemia On: 4-Vdl-185172:03 Request LIPID PANEL (78421)Indication: Mixed hyperlipidemia On: 4-Rdy-447001:50 Request TSH (16871)Indication: Acquired hypothyroidism On: 0-Uff-157842:49 Request METABOLIC PANEL, COMPREHENSIVE (93091)Indication: Hypertension, benign On: 6-Yoo-538552:49 Request URINE ANN CULTURE (FILOMENA COL COUNT) (53317)Indication: Pain in unspecified hip On: 10-Vhg-725498:16 Request TSH (72987)Indication: Acquired hypothyroidism On: 36-Uxu-150372:51 Request METABOLIC PANEL, COMPREHENSIVE (94903)Indication: Hypertension, benign On: 9-Yfe-398186:58 Request HEPATIC FUNCTION PANEL (92133)Indication: Mixed hyperlipidemia On: 3-Erf-359056:58 Request LIPID PANEL (53716)Indication: Mixed hyperlipidemia On: 0-Yjp-567679:58 Request TSH (94233)Indication: Acquired hypothyroidism On: 9-Gfy-850679:54 Request HEPATIC FUNCTION PANEL (79059)Indication: Mixed hyperlipidemia On: 20-Zsp-774781:40 Request LIPID PANEL (02286)Indication: Mixed hyperlipidemia On: 44-Yeg-765761:40 Request Anti-TPO Antibody (90882)Indication: Abnormal TSH On: 43-Xha-741642:31 Request T4, TOTAL (41933)Indication: Abnormal TSH On: 16-Yvf-788404:30 Request T4, FREE (39001)Indication: Abnormal TSH On: 16-Oqa-033089:30 Request TSH (18695)Indication: Abnormal TSH On: 77-Wkd-154923:30 Request CBC WITH MANUAL DIFF (57014)Indication: Hypertension, benign On: 37-Uos-531132:29 Request METABOLIC PANEL, COMPREHENSIVE (37318)Indication: Hypertension, benign On: 21-Yvn-681558:28 Request Lipase (49450)Indication: Nausea On: 1-Ywe-864408:02 Request Amylase (13620)Indication: Nausea On: 8-Agk-764239:02 Request URINALYSIS W/O MICRO (93857)Indication: Dizziness and giddiness On: :58 Request TSH (58219)Indication: Dizziness and giddiness On: :58 Request METABOLIC PANEL, COMPREHENSIVE (73285)Indication: Dizziness and giddiness On: :57 Request CBC WITH MANUAL DIFF (90720)Indication: Dizziness and giddiness On: :57 Request HEPATIC FUNCTION PANEL (19787)Indication: Mixed hyperlipidemia On: :59 Request LIPID PANEL (88458)Indication: Mixed hyperlipidemia On: :59 Request URINALYSIS W/O MICRO (46585)Indication: Hypertension, benign On: 5-Aac-767389:05 Request TSH (82516)Indication: Hypertension, benign On: 8-Oaw-167317:05 Request CBC WITH MANUAL DIFF (97814)Indication: Hypertension, benign On: 8-Hmy-591346:05 Request METABOLIC PANEL, COMPREHENSIVE (26657)Indication: Hypertension, benign On: 4-Dec-585299:05 Request LIPID PANEL (15316)Indication: Mixed hyperlipidemia On: 1-Adn-597292:04 Request HEPATIC FUNCTION PANEL (01806)Indication: Mixed hyperlipidemia On: 1-Eli-969264:04 Request URINE ANN CULTURE-IDENTIFICATN (47117)Indication: Hematuria On: 10-Gzo-082423:57 Request URINALYSIS (60470)Indication: Hematuria On: 42-Fqo-839078:57 Request URINE ANN CULTURE-IDENTIFICATN (51978)Indication: Hematuria On: 83-Liz-937666:56 Request Comments: if neg- ct of abdomen and pelvis URINALYSIS (93480)Indication: Hypertension On: 68-Fda-147796:04 Request TSH (54645)Indication: Hypertension On: 46-Uoq-780396:03 Request CBC WITH MANUAL DIFF (13261)Indication: Hypertension On: 35-Mxo-545291:03 Request METABOLIC PANEL, COMPREHENSIVE (22049)Indication: Hypertension On: 48-Qhk-631621:03 Request LIPID PANEL (74437)Indication: Mixed hyperlipidemia On: 28-Vsy-202885:03 Request Planned Procedures CHEST XRAY, PA & LATERAL (66056)By: On: 10-Nov-2017 Intent Louise Darby Spirometry (05512)By: Wilner On: 10-Nov-2017 Intent Louise Comments: Normal X-RAY RIGHT WRIST, 3+ VIEWS On: 01-Sep-2017 Intent (75339)By: Lilliana Mishra DO, DO, Kathleen Radiology - Wrist - LeftBy: Tad On: 01-Sep-2017 Intent Lilliana RIOS DO, Kathleen X-RAY OF COCCYX, TWO VIEWS On: 01-Sep-2017 Intent (41289)By: Lilliana Mishra DO, DO, Kathleen PNEUM VAC ADLT/IMUMNOSPR, SBC/INTRM On: 29-Apr-2017 Intent (42550)By: Lilliana Mishra DO Comments: pneumovax prefilled syringe injectionlot: [id number]: 07/05/2018L DELT IMpt tolerated wellAD FELL CUTTER Lilliana Mishra DO Flu Vaccine (Quadrivalent) 47289Pu: On: 29-Jan-2017 Intent Lilliana Mishra DO, DO, Comments: lot: [id number]: 09/01/17ite/route: L david, IMamt: 0.5mlVIS and ABN signed when applicableChelsALISHA mercedes ORTHOSTATIC BLOOD PRESSURE On: 22-Aug-2016 Intent ASSESSMENT (70826)By: Wilner Comments: Negative Louise ULTRASOUND AORTA (75358)By: Tad On: 18-Jul-2016 Intent Lilliana RIOS DO, Kathleen EMGBy: Ciesa Amy MAGAÑA On: 18-Oct-2014 Intent Nerve ConductionBy: Ciesa Amy MAGAÑA On: 18-Oct-2014 Intent E Radiology - Wrist - RightBy: Ciesa On: 18-Oct-2014 Intent Amy MAGAÑA E FLU VAC, SPLIT, >3 YEARS, INTRAMUSC On: 12-Jan-2013 Intent (16618)By: Yoselin Evans Comments: Lot:[id number]:Dose:0.5mLRoute:IMSite:L DltdGiven By:JKMVIS signed IMMUNIZ ADMNIN, 1 VAC, SNGL/COMBO On: 12-Jan-2013 Intent (73949)By: Yoselin Evasn Eprescribed prescriptions On: 04-Jan-2013 Intent (G8553)By: Mignon Irving EKG (72784)By: Mercedez Tapia On: 06-Apr-2012 Intent Comments: ekg showed normal sinus rhythym, normal axis, no acute st/t wave changes Eprescribed prescriptions On: 06-Apr-2012 Intent (G8553)By: Mercedez Tapia Eprescribed prescriptions On: 17-Feb-2012 Intent (G8553)By: Louise Hahn LPN FLU VAC, SPLIT, >3 YEARS, INTRAMUSC On: 02-Dec-2011 Intent (31724)By: Mercedez Tapia Comments: Lot #[id number]-0/30/13Site-left deltoidgiven by: Theresa Lozaon LPN Radiology - Hip - BilateralBy: Fast On: 02-Dec-2011 Intent Mayra RIOS IMMUNIZ ADMNIN, 1 VAC, SNGL/COMBO On: 02-Dec-2011 Intent (07450)By: Mercedez Tapia ZOST[place] VACC, [place] (30599)By: Regina, On: 08-Aug-2011 Intent Mercedez Eprescribed prescriptions On: 29-Jul-2011 Intent (G8553)By: Mayra Pérez DO EKG (96603)By: Mercedez Tapia On: 01-Apr-2011 Intent Comments: ekg showed normal sinus rhythym, normal axis, no acute st/t wave changes FLU VAC, SPLIT, >3 YEARS, INTRAMUSC On: 01-Apr-2011 Intent (34174)By: Mercedez Tapia Comments: work TDAP VACCINE >7 IM (21782)By: Mast On: 31-Jul-2010 Intent Loly COYLE Comments: Lot #:[id number] date: 05/27Amount given: 0.5 mlRoute: IMSite given: left deltoidGiven by: Son Marrero RN FLU VAC, SPLIT, >3 YEARS, INTRAMUSC On: 20-Feb-2010 Intent (55294)By: Mercedez Tapia IMMUNIZ ADMNIN, 1 VAC, SNGL/COMBO On: 20-Feb-2010 Intent (38101)By: Mercedez Tapia Comments: Lot #[id number]/11Site-L armDose0.5mlgiven by:SKYLA Radiology - Lumbar SpineBy: Fast On: 25-Jul-2009 Intent Mayra RIOS A EKG (69974)By: Mercedez Tapia On: 13-Feb-2009 Intent Comments: ekg showed normal sinus rhythym, normal axis, no acute st/t wave changes Radiology - Hip - RightBy: Fast DO, On: 23-Jun-2007 Intent Mayra A Radiology - Lumbar SpineBy: Fast On: 23-Jun-2007 Intent DO, Mayra A FLU VAC, SPLIT, >3 YEARS, INTRAMUSC On: 03-Feb-2007 Intent (07298)By: Catia Clement Comments: Lot #[id number] Exp-09/14/07Site-left deltoid Dose0.5ccgiven by Paul Clement FELL CUTTER IMMUNIZ ADMNIN, 1 VAC, SNGL/COMBO On: 03-Feb-2007 Intent (76652)By: Catia Clement EKG (76656)By: Mercedez Tapia On: 14-May-2006 Intent Comments: done-jjpekg showed normal sinus rhythym, normal axis, no acute st/t wave changes CT - Abdomen & Pelvis Stone On: 07-Apr-2006 Intent ProtocolBy: Beto DO, Mayra A Instructions Name Dates Details [...] inoculation against influenza Encounters Office Visit On: 02-Feb-2018 13:12 Encounter Reason: [...] feels mood is good thinks issue with mosesep is menopausal and doesnt want to shut [...] no gerd but 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 The medical issues the anisa gonzalez is following up for include All identified [...] is significantly improved-- now also left geovanna méndez in-- she thinks because she was nonwtbearing [...] Encounter Diagnosis: Hypertension,benign(401.1), travel issues- she nneded [employer] signed for going to cl End: 08-May-2007 [...] and is always 120/70-- had cystoscopy at [facility] and he didnt find anythingEncounter [...]
--- OUTSIDE RECORDS SUMMARY | 2018-06-05 22:11 | XMS RPT_ITS | Continuity of Care Document ---
:1950 Author Organization [facility] Address [facility]7 [facility] [address] [place] [address] Phone Care Team Providers Name Role Phone Tad DO Lilliana Unavailable Flako SALAZAR, Yahaira Kuhn Unavailable Beto Mayra Son Unavailable Dimitris SALAZAR, Dr. Alex Dunlap Unavailable Pascual Knutson Unavailable Kyra Tomas Unavailable Unavailable Louise Darby Unavailable Lang Osuna Unavailable Unavailable MACO Hahn Unavailable Unavailable Unavailable Unavailable Problems Name Dates [...] from trip to [place]-dust allergy? Status: Active Deliveries (Parity) Comments: 1 Status: [...] Status: Active Sigmoidoscopy Comments: Neg. Status: Active Sleep disorder (G47.9, 780.50) Status: [...] Ordered:14-Jun-2015 Mercedez Tapia Start : 14-Jun-2015 Active Azithromycin 1 GM Oral Packet 1 (one) Packet TAD for 0 days Quantity: 1 {Packet} Refills: 0 Ordered:10-Nov-2017 Louise Darby Start : 10-Nov-2017 Active CALCIUM CARBONATE, 1250MG (Oral Tablet) 1 [...] Amy Coppola CNP Start : 16-Oct-2017 Active PredniSONE 10 MG Oral Tablet 1 (one) Tablet TAD for 0 days Quantity: 18 {Tablet} Refills: 0 Ordered:10-Nov-2017 Louise Darby Start : 10-Nov-2017 Active Comments:3 Tablets Daily x 3 days,2 Tablets Daily x 3 days,1 Tablet Daily x 3 days.Take with food. Synthroid 100 MCG Oral Tablet 1 (one) [...] Inactive Apple cider vinegar tablet daily Inactive AUGMENTIN, 875-125MG (Oral Tablet) 1 Tablet bid for 14 days Quantity: 28 {Tablet} Refills: 0 Ordered:20-Sep-2014 Amy Coppola CNP Start : 20-Sep-2014 End : 04-Oct-2014 Inactive Bromfed DM 30-2-10 MG/5ML Oral Syrup 1 (one) Milliliter Milliliter 10 cc every 8 hours prn for 0 days Quantity: 120 {Milliliter} Refills: 0 Ordered:29-Jul-2017 EDITH Calvo Start : 12-Mar-2017 End : 29-Jul-2017 Inactive Cefadroxil 500 MG Oral Capsule 1 [...] Start : 22-Aug-2016 End : 12-Mar-2017 Inactive RASPBERRY CONCENTRATE (Concentrate) qd Inactive SINGULAIR, 10MG (Oral Tablet) 1 QD for 0 days Refills: 0 Ordered:25-Jul-2009 Chapis Tapiactive ZOSTAVAX, 82570OQH/0.65ML (Subcutaneous Solution Reconstituted) 1 (one) For Solution [...] Quantity: 2 {Tablet} Refills: 0 Ordered:06-Apr-2012 Fast DO, Mayra A Start : 06-Apr-2012 End : [...] Quantity: 30 {Tablet} Refills: 3 Ordered:06-Apr-2012 Fast DO Mayra A Start : 06-Apr-2012 End : [...] and Lateral Result: Comments: See Note; NOTES: [facility] Imaging Services [address] [place] [address] Chest PA and Lateral MR#: [id number] Acct: [id number] Name: PAMELA GUTIERREZ Rep #: [id number] : 1950 F 67 From: Dylan Amado MD PCP: Lilliana Mishra DO Status: REG CLI Study: Chest PA and Lateral Date of Exam: 11/10/17 Exam# [id number] Ordering Dr: Louise Darby NATIONAL SECRETARY-Neema STUDY: X- RAY CHEST REASON FOR EXAM: [...] Fax CC: LAZARO Darby; Lilliana Mishra DO Tax Associate Attorney: Signed 01-Sep-2017 Sacrum-Coccyx min 2 Views Result: Comments: See Note; NOTES: [facility] Imaging Services [address] [place] [address] Sacrum-Coccyx min 2 Views MR#: [id number] Acct: [id number] Name: PAMELA GUTIERREZ Rep #: [id number] : 1950 F 67 From: Mikael Alexander MD PCP: Lilliana Mishra DO Status: REG CLI Study: Sacrum-Coccyx min 2 Views Date of Exam: 09/01/17 Exam# [id number] Ordering Dr: Lilliana [facility]ishra DO [facility] - SACRUM/COCCYX REASON FOR EXAM: Female, [...] Service support , CC: Lilliana Mishra DO Tax Associate Attorney: Signed 01-Sep-2017 Wrist min 3 Views Result: Comments: See Note; NOTES: [facility] Imaging Services [address] [place] [address] Wrist min 3 Views MR#: [id number] Acct: [id number] Name: PAMELA GUTIERREZ Rep #: [id number] : 1950 F 67 From: Mikael Alexander MD PCP: Lilliana Mishra DO Status: REG CLI Study: Wrist min 3 Views Date of Exam: 09/01/17 Exam# [id number] Ordering Dr: Lilliana Mishra DO STUDY: X-RAY [...] Service support , CC: Lilliana Mishra DO Tax Associate Attorney: Signed 01-Sep-2017 Wrist min 3 Views Result: Comments: See Note; NOTES: [facility] Imaging Services [address] [facility] [facility] [place] [address] Wrist min 3 Views MR#: [id number] Acct: [id number] Name: PAMELA GUTIERREZ Rep #: [id number] : 1950 F 67 From: Mikael Alexander MD PCP: Lilliana Mishra DO Status: REG CLI Study: Wrist min 3 Views Date of Exam: 09/01/17 Exam# [id number] Ordering Dr: Lilliana Mishra DO STUDY: X-RAY [...] Service support , CC: Lilliana Mishra DO Tax Associate Attorney: Signed 08-Mar-2017 Urgent Care Visit Report Result: Comments: See Note; NOTES: [facility]7 [facility] [address] [place] [address] OFFICE VISIT Date of Service: 03/08/17 MR#: [id number] Acct: [id number] Name: PAMELA GUTIERREZ Re p #: [id number] : 1950 Provider: ANISA Santamaria Age/Sex: 66/F Location: [facility] Status: Signed Intake Intake Visit Reasons: sinus Is patient in pain?: No Allergies No Known Allergies Allergy (Verified 03/08/17 13:51) Medications Escitalopram Oxalate [Lexapro] 5 mg PO DAILY 07/11/14 [History Confirmed 03/08/17] Levothyroxine [Synthroid] 25 mcg PO DAILY 07/11/14 [History Confirmed 7] Lisinopril [Zestril] 2.5 mg PO DAILY 07/11/14 [History Confirmed 03/08/17] Pantoprazole Sodium [Protonix] 40 mg PO DAILY 07/11/14 [History Confirmed 03/08/17] sxentomgjzicpsl-atschatunhjkyoy-PZ 2 mg- 30 mg-10 mg/5 mL syrup [...] 19-Jul-2016 Aorta Result: Comments: See Note; NOTES: [facility] Imaging Services [address] [place] [address] [place] [address] Verdana 4d Aorta MR#: [id number] Acct: [id number] Name: PAMELA GUTIERREZ Rep #: [id number] D OB: 1950 F 65 From: Hi Reynoso MD PCP: Lilliana Mishra DO Status: REG CLI Study: Aorta Date of Exam: 07/19/16 Exam# [id number] Ordering Dr: Lilliana Mishra DO PROCEDURES: ULTRASOUND [...] Hi Reynoso MD at 9:24 EDT Tel [phone], Service support , CC: Lilliana Mishra DO Tax Associate Attorney: Signed 18-Oct-2014 Wrist min 3 Views Result: Comments: See Note; NOTES: [facility] Imaging Services [address] [place] [address] Radiology Report MR#: [id number] Acct: [id number] Name: PAMELA GUTIERREZ Rep #: [id number] : 1950 F 64 From: Hi Reynoso MD PCP: Mayra Pérez DO Status: REG CLI Study: Wrist min 3 Views Date of Exam: 10/18/14 Exam# [id number] Ordering Dr: Amy Coppola STUDY: X-RAY - [...] Hi Reynoso MD at 16:02 EDT Tel [phone], Service support [phone], RAD/Wrist mi n 3 Views IMPRESSION: Normal x-ray examination of the wrist. Electronically Signed: Hi Reynoso MD at 16:02 EDT Tel [phone], Service support [phone], CC: Amy Coppola; Mayra Pérez DO Tax Associate Attorney: Signed 17-Jul-2014 Emergency Department Summary Result: Comments: See Note; NOTES: [facility] Medical Records Department [address] [place] [address] Emergency Department Summary MR#: [id number] Acct: [id number] Name: PAMELA GUTIERREZ Rep #: [id number] : 1950 63 From: Ronald Payne MD PCP: Mayra Pérez DO Status: [facility] ER DATE OF SERVICE: 07/11/2014 CHIEF COMPLAINT: Left wrist pain and knee pain. HISTORY OF SC ESENT ILLNESS: The patient was in an [...] medicine here to go. She will use lbbq-pgf-linqgdd ice, elevation may help. Follow up within [...] Berry C: [employer] Ronald Langston MD T: [facility] JOB: [id number] 07/17/14 185 <Electronically signed by Ronald Payne MD> Date Ronald Payne MD CC: Mayra Pérez DO; Ronald Langston MD; [employer] Date Dictated: 07/11/142249 Date Transcribed: 07/11/142249 Tax Associate Attorney: Signed 11-Jul-2014 Discharge Instruction Result: Comments: See Note; NOTES: [facility] Medical Records Department [address] [facility] [place] [address] Discharge Instruction 07/11/142130 MR#: [id number] Acct: [id number] Name: PAMELA GUTIERREZ Rep #: [id number] : 1950 63 From: Ronald Payne MD [...] Doctors Registry ) or report to the [facility] Emergency Room. Call 911 if necessary. 07/11/142131 <Electronically signed by Ronald Payne MD> Date Ronald Payne MD Cos igner Signature (If Indicated): Date CC: Mayra Pérez DO 11-Jul-2014 Wrist min 3 Views Result: Comments: See Note; NOTES: [facility] Imaging Services [address] [place] [address] Radiology Report MR#: [id number] Acct: [id number] Name: PAMELA GUTIERREZ Rep #: [id number] : 1950 F 63 From: Hi Reynoso MD PCP: Mayra Pérez DO Status: DEP ER Study: Wrist min 3 Views Date of Exam: 07/11/14 Exam# [id number] Ordering Dr: Ronald Payne MD STUDY: X-RAY [...] Hi Reynoso MD at 9:18 EDT Tel [phone], Service support [phone], RAD/Wrist min 3 Views IMPRESSION: I suspect a nondisplaced linear fracture involving the distal radial metaphysis with extension to the articular surface. Soft tissue swelling. Electronically Signed: Hi Reynoso MD at 9:18 EDT Tel [phone], Service support [phone], CC: Mayra Pérez DO; Ronald Payne MD Tax Associate Attorney: Signed 22-Oct-2013 EKG (34310) Comments: ekg showed normal sinus rhythym, normal axis, no acute st/t wave changes biphasic twave otherwise no change Result: [MEASUREMENTS ANALYSIS] Date of Test: 10/22/2013 14:05:39; Heart Rate: 67; SC Interval: 154; QRS: 90; QT Interval: 388; Corrected QT Interval (QTc): 400; P Wave Becket: 31; QRS Wave Becket: -15; T Wave Becket : 1; Blood Pressure: 112/72 [ECG DIAGNOSTIC STATEMENTS] Date of Test: 10/22/2013 14:05:39; Summary: Sinus Rhythm - Diffuse nonspecific T-abnormality. ABNORMAL Immunization Name Dates Details Influenza (3 years and up) on: 03-Feb-2007 Comments: Lot #[id number] Exp-09/14/07Site-left deltoid Dose0.5ccgiven by Paul Clement LPN [...] smoker Vital Signs Date Test Result Details 81-Pnt-118142:56 Temperature 97.6 f Comments: Method: Temporal Pulse [...] kg/m2 Body Surface Area Calculated 2.03 m2 01-Qvp-045606:25 Pulse 78 /min Comments: Pattern: Regular Respiration [...] kg/m2 Body Surface Area Calculated 2.03 m2 79-Aot-665567:35 Temperature 97.7 f Pulse 72 /min Comments: [...] 0.00 cm Results Date Description Value Details 60-Grb-077807:40 TSH (56095) Comments: PATIENT WAS FASTINGPERFORMED BY: BN [facility] Yvoabnlrjz8445 [facility] [id number] BY: CB [facility] Hoduqa7075 [facility] [id number]; fu 09-01-17 KF TSH 0.340 {uIU/mL} (Abnormal) Range: 0.450-4.500 39-Lfx-856902:40 CALCIFIDIOL (15714) VIT D Comments: PATIENT WAS FASTINGPERFORMED BY: [place]ent[place] [address] [facility] [id number] BY: [facility]6370 [facility] [id number] 25 Vitamin D, 25-Hydroxy 37.6 ng/mL (Normal) Range: 30.0-100.0 Comments: Vitamin D deficiency has been defined by the [place] ofA[facility] Medical Centercine and an Endocrine Society practice guideline as alevel of serum 25-OH vitamin D less than 20 ng/mL (1,2).The Endocrine Society went on to further define vitamin Dinsufficiency as a level between 21 and 29 ng/mL (2).1. IOM ([place] of Medicine). 2010. Dietary reference intakes for calcium and D. [place]: The National Academies Press.2. Fletcher MF, Edgardo COOL, Dina KAPLAN, et al. Evaluation, treatment, and prevention of vitamin D deficiency: an Endocrine Society clinical practice guideline. JCEM. 2010; 96(7):1911-30. 08-Hrb-687444:40 LIPOPROTEIN, BLD, BY NMR Comments: PATIENT WAS FASTINGPERFORMED BY: [place] [address] [facility] [id number] BY: ExentThe Rehabilitation Hospital of Tinton FallsWobbuj2005 [facility] [id number] (51099) LP-IR Score 71 (Abnormal) Comments: INSULIN RESISTANCE MARKER <--Insulin Sensitive Insulin Resistant--> Percentile in Reference PopulationInsulin Resistance ScoreLP-IR Score Low 25th 50th 75th High <27 27 45 63 >63LP-IR Score is inaccurate if patient is non-fasting. .The LP-IR score is a laboratory developed i [facility] that has beenassociated with insulin [...] were developed and their performance characteristicsdetermined by [employer]. These assays have not been cleared by [...] 1600 - 2000 Very High > 2000 63-Apt-414074:40 METABOLIC PANEL, Comments: PATIENT WAS FASTINGPERFORMED BY: LabCo[address] [id number] BY: [facility] Bdxnbf3824 [facility] [id number] COMPREHENSIVE (17373) ALT (SGPT) 16 [iU]/L (Normal) Range: 0-32 [...] 8-27 Glucose 85 mg/dL (Normal) Range: 65-99 86-Rgv-267344:40 CBC with auto diff Comments: PATIENT WAS FASTINGPERFORMED BY: BN [facility] [address] [id number] BY: CB [facility] Xwxvdb2313 [facility] [id number] (01753) Immature Grans (Abs) 0.0 {x10E3/uL} (Normal) Range: [...] 3.77-5.28 WBC 4.8 {x10E3/uL} (Normal) Range: 3.4-10.8 52-Dam-005071:43 Microscopic Examination Comments: PATIENT WAS FASTINGPERFORMED BY: HealOr70 [facility] [id number] Bacteria None seen (Normal) Mucus Threads Present (Normal) Epithelial Cells (non renal) 0-10 {/hpf} (Normal) Range: 0 - 10 RBC None seen {/hpf} (Normal) Range: 0 - 2 WBC 0-5 {/hpf} (Normal) Range: 0 - 5 59-Fpl-111254:43 CALCIFEDIOL (50952) Comments: PATIENT WAS FASTINGPERFORMED BY: [employer]6370 [facility] [id number] Vitamin D, 25-Hydroxy 68.6 ng/mL (Normal) Range: 30.0-100.0 Comments: Vitamin D deficiency has been defined by the [place] ofMedicine and an Endocrine Society practice guideline as alevel of serum 25-OH vitamin D less than 20 ng/mL (1,2).The Endocrine Society went on to further define vitamin Dinsufficiency as a level between 21 and 29 ng/mL (2).1. IOM ([place] of Medicine). 2010. Dietary reference intakes for calcium and D. [place]: The National Academies Press.2. Fletcher MF, Edgardo COOL, Dina KAPLAN, et al. Evaluation, treatment, and prevention of vitamin D deficiency: an Endocrine Society clinical practice guideline. JCEM. 2010; 96(7):1911-30. :43 TSH (92048) Comments: PATIENT WAS FASTINGPERFORMED BY: Exent Neurosearch ZavalaCloudmachECU Health [facility] Hospital [id number] TSH 4.800 {uIU/mL} (Abnormal) Range: 0.450-4.500 :43 URINALYSIS, W/ MICRO (04443) Comments: PATIENT WAS FASTINGPERFORMED BY: Official Limited [facility]At[facility] [id number] Microscopic Examination See below: (Normal) Comments: Microscopic was indicated and was performed. Nitrite, Urine Negative (Normal) Urobilinogen,Semi-Qn 0.2 mg/dL (Normal) Range: 0.2-1.0 Bilirubin Negative (Normal) Occult Blood 1+ (Abnormal) Ketones Negative (Normal) Glucose Negative (Normal) Protein Negative (Normal) WBC Esterase Trace (Abnormal) Appearance Clear (Normal) Urine-Color Yellow (Normal) pH 6.0 (Normal) Range: 5.0-7.5 Specific [place] 1.013 (Normal) Range: 1.005-1.030 :43 MICROALBUMIN: CREATININE RATIO Comments: PATIENT WAS FASTINGPERFORMED BY: Exent Neurosearch Zavala VM EnterprisesECU Health [facility] Hospital [id number] (65305) AND (83102) Microalb/Creat Ratio <4.4 {mg/g_creat} (Normal) Range: 0.0-30.0 Microalbumin, Urine <3.0 ug/mL (Normal) Creatinine, Urine 67.5 mg/dL (Normal) :43 METABOLIC PANEL, COMPREHENSIVE Comments: PATIENT WAS FASTINGPERFORMED BY: Exent Neurosearch Zavala Reflexis SystemsAtrium Health [id number] (59878) ALT (SGPT) 21 [iU]/L (Normal) Range: 0-32 [...] Glucose, Serum 87 mg/dL (Normal) Range: 65-99 57-Dsj-239919:43 LIPID PANEL (22507) Comments: PATIENT WAS FASTINGPERFORMED BY: LabCoThe Rehabilitation Hospital of Tinton FallsEkmrvc6324 [facility] [id number] LDL/HDL Ratio 2.1 {ratio_units} (Normal) Range: 0.0-3.2 Comments: LDL/HDL Ratio Men Women 1/2 Avg.Risk 1.0 1.5 Av g.Risk 3.6 3.2 2X Avg.Risk 6.2 5.0 3X Avg.Risk 8.0 6.1 LDL Cholesterol Calc 81 mg/dL (Normal) Range: 0-99 VLDL Cholesterol Jorge 20 mg/dL (Normal) Range: 5-40 HDL Cholesterol 38 mg/dL (Abnormal) Triglycerides 102 mg/dL (Normal) Range: 0-149 Cholesterol, Total 139 mg/dL (Normal) Range: 100-199 :43 CBC W/AUTO DIFF WBC (31230) Comments: PATIENT WAS FASTINGPERFORMED BY: HealOr70 WealthfrontECU [facility] [id number] Immature Grans (Abs) 0.0 {x10E3/uL} (Normal) Range: [...] {x10E3/uL} (Normal) Range: 3.4-10.8 :33 C-REACTIVE PROTEIN (63467) Comments: PATIENT NOT FASTINGPERFORMED BY: Exent Zxayvt2909 [facility] [id number] C-Reactive Protein, Quant 0.7 mg/L (Normal) Range: 0.0-4.9 :33 SED RATE ERYTHROCYTE (24496) Comments: PATIENT NOT FASTINGPERFORMED BY: [facility] CenterCoThe [facility] Hospital [facility] Tinton FallsPgmvfc7920 [facility] [id number] Sedimentation Rate-Westergren 3 mm/h (Normal) Range: 0-40 :33 CBC, PLATELETS & AUT DIFF Comments: PATIENT NOT FASTINGPERFORMED BY: LabCoThe Rehabilitation Hospital of Tinton FallsMjsleu6290 [facility] [id number] Information: 127289,[id number] (99408) Immature Grans (Abs) 0.0 {x10E3/uL} (Normal) Range: [...] 3.77-5.28 WBC 5.6 {x10E3/uL} (Normal) Range: 3.4-10.8 8-Lym-744766:33 METABOLIC PANEL, COMPREHENSIVE Comments: PATIENT NOT FASTINGPERFORMED BY: Exent Tmfuhg2292 [facility] [id number] (86880) ALT (SGPT) 18 [iU]/L (Normal) Range: 0-32 [...] mg/dL (Normal) Range: 65-99 :26 ANN CULTURE-STOOL (79260) Comments: PATIENT NOT FASTINGPERFORMED BY: AirPlugAleda E. [facility]6370 [facility] [id number] Information: SRC:ST SRC:ST E coli Shiga Toxin EIA Negative (Normal) Result 1 NCI (Normal) Comments: No Campylobacter species isolated. Campylobacter Culture Final report (Normal) Result 1 NSS (Normal) Comments: No Salmonella or Shigella recovered. Salmonella/Shigella Screen Final report (Normal) :26 Clostridium difficile Toxin Comments: PATIENT NOT FASTINGPERFORMED BY: [facility]6370 [facility] [id number] A+B, EIA (03233) C difficile Toxins A+B, EIA Negative (Normal) :26 LEUKOCYTE COUNT, FECAL (44672) Comments: PATIENT NOT FASTINGPERFORMED BY: [place] 2642770 [facility] [id number] Result 1 NWBC (Normal) Comments: No white blood cells seen. White Blood Cells (WBC), Final report (Normal) Stool :26 OVA & PARASITE DIR SMEAR Comments: PATIENT NOT FASTINGPERFORMED BY: [place] 2642770 [facility] [id number] (79505) Result 1 NOCP (Normal) Comments: No ova, cysts, or parasites seen. Ova + Parasite Exam Final report (Normal) Comments: These results were obtained using wet preparation(s) and trichromestained smear. This test does not include testing for Cryptosporidiumparvum, Cyclospora, or Microsporidia. 97-Klg-613645:44 TSH (67092) Comments: PATIENT WAS FASTINGPERFORMED BY: [facility]6370 [facility] [id number] TSH 1.290 {uIU/mL} (Normal) Range: 0.450-4.500 :44 CBC W/AUTO DIFF WBC (82895) Comments: PATIENT WAS FASTINGPERFORMED BY: [place] 2642770 [facility] [id number] Immature Grans (Abs) 0.0 {x10E3/uL} (Normal) Range: [...] 3.77-5.28 WBC 5.6 {x10E3/uL} (Normal) Range: 3.4-10.8 68-Vbg-333878:44 METABOLIC PANEL, COMPREHENSIVE Comments: PATIENT WAS FASTINGPERFORMED BY: LabCoThe Rehabilitation Hospital of Tinton FallsAsljhh1558 [facility] [id number] (12889) ALT (SGPT) 10 [iU]/L (Normal) Range: 0-32 [...] Glucose, Serum 91 mg/dL (Normal) Range: 65-99 23-Cmx-750293:44 LIPID PANEL (16650) Comments: PATIENT WAS FASTINGPERFORMED BY: Official Limited [facility] [id number]; non-emergent till apt tomorrow LDL/HDL Ratio 3.3 [...] 246 mg/dL (Abnormal) Range: 100-199 :59 TSH (25155) Comments: PATIENT WAS FASTINGPERFORMED BY: Official Limited [facility]At[facility] [id number] TSH 0.081 {uIU/mL} (Abnormal) Range: 0.450-4.500 :59 Vitamin D Hydroxy (23256) Comments: PATIENT WAS FASTINGPERFORMED BY: Official Limited [facility] [id number] Vitamin D, 25-Hydroxy 42.0 ng/mL (Normal) Range: 30.0-100.0 Comments: Vitamin D deficiency has been defined by the [place] ofMedicine and an Endocrine Society practice guideline as alevel of serum 25-OH vitamin D less than 20 ng/mL (1,2).The Endocrine Society went on to further define vitamin Dinsufficiency as a level between 21 and 29 ng/mL (2).1. IOM ([place] of Medicine). 2010. Dietary reference intakes for calcium and D. [place]: The National Academies Press.2. Fletcher MF, Edgardo COOL, Dina KAPLAN, et al. Evaluation, treatment, and prevention of vitamin D deficiency: an Endocrine Society clinical practice guideline. JCEM. 2010; 96(7):1911-30. 57-Jvy-71599:59 LIPID PANEL (80125) Comments: PATIENT WAS FASTINGPERFORMED BY: [facility] Vggdhs7175 [facility] [id number] Information: 217951,W23076 LDL/HDL Ratio 2.8 {ratio_units} (Normal) Range: 0.0-3.2 [...] Cholesterol, Total 229 mg/dL (Abnormal) Range: 100-199 77-Ryn-464519:56 Allergen, Rast Food Profile Comments: Test performed at:[facility] Wezprtugqo[address] [place] [address] RAST COMMENT Comment (Normal) Comments: Levels of [...] in this mix are: Blue mussel Fish [place] Shrimp Tuna EGG, WHOLE <0.10 kU/L (Normal) CHOCOLATE <0.10 kU/L (Normal) Comments: Performed at: [facility] Lab[address] [id number] Director: Vaughn Garsia MD, Phone: [phone] BEEF <0.10 kU/L (Normal) PORK <0.10 kU/L (Normal) SOYBEAN <0.10 kU/L (Normal) PEANUT <0.10 kU/L (Normal) CORN <0.10 kU/L (Normal) WHEAT <0.10 kU/L (Normal) MILK (COW) <0.10 kU/L (Normal) 36-Vhn-52578:38 URINE ANN CULTURE-FILOMENA COL Comments: PATIENT NOT FASTINGPERFORMED BY: LabCoThe Rehabilitation Hospital [facility] T[facility] FallsKgfzfu9003 [facility] [id number] Information: SRC:[facility] [id number] COUNT (31895) Antimicrobial MIHEAD (Normal) Comments: S = Susceptible; [...] mL (Abnormal) Urine Final report Culture,Comprehensive (Abnormal) 74-Ueg-906172:11 Urinalysis, Office (96430) UA - LEUKOCYTE ESTERASE Large (Normal) UA - NITRITE Negative (Normal) URINE UROBILINGN FILOMENA TIMED Normal mg/dL (Normal) UA - PROTEIN Negative mg/dL (Normal) UA - PH 5.0 (Normal) UA - BLOOD Non Hemolyzed Moderate (Normal) UA - SPECIFIC GRAVITY 1.015 (Normal) UA - KETONES Negative mg/dL (Normal) UA - BILIRUBIN Negative (Normal) UA - GLUCOSE Negative (Normal) :33 Comprehensive Metabolic Profil Comments: Test performed at:[facility] Lqfncdpahc2834 [facility] [place] [address] GAP 4 (Abnormal) Range: 5-15 CO2 31.0 [...] 70-110 :33 Lipid Profile Comments: Test performed at:[facility] Xzjxsrnmsw8784 [address] ChandlerApoorva [place], [place] [id number] VLDL 31 mg/dL (Normal) Range: 5-40 LDL [...] 200-240 mg/dL Borderline >240 mg/dL High Risk 8-Tht-643682:33 Thyroid Stim Hormone (TSH) Comments: Test performed at:[facility] Psswonbtux6516 [place] [place], [place] [address] TSH 3.03 {uIU/mL} (Normal) Range: 0.358-3.74 :57 TSH (33636) Comments: PATIENT WAS FASTINGPERFORMED BY: [facility] Ogubjt5637 [facility] [id number] TSH 7.420 {uIU/mL} (Abnormal) Range: 0.450-4.500 :57 METABOLIC PANEL, Comments: PATIENT WAS FASTINGPERFORMED BY: [facility] Tblxqd9949 [facility] [id number] Information: [id number] COMPREHENSIVE (10029) ALT (SGPT) 10 [iU]/L (Normal) Range: 0-32 [...] Glucose, Serum 84 mg/dL (Normal) Range: 65-99 24-Ogv-26394:57 LIPID PANEL (72648) Comments: PATIENT WAS FASTINGPERFORMED BY: LabCoThe Rehabilitation Hospital of Tinton FallsUnzzrh7361 [facility] [id number] LDL/HDL Ratio 4.1 {ratio_units} (Abnormal) Range: 0.0-3.2 [...] Cholesterol, Total 280 mg/dL (Abnormal) Range: 100-199 05-Ohb-493582:09 CMP GAP 7 (Normal) Range: 5-15 CO2 [...] 7-18 GLU 85 mg/dL (Normal) Range: 70-110 68-Zto-646621:09 LIPID VLDL 39 mg/dL (Normal) Range: 5-40 [...] CHOL 260 mg/dL (Abnormal) Comments: <200 mg/dL Fcgxeyhim558-054 mg/dL Borderline>240 mg/dL High Risk 33-Ijt-679288:09 VITD 49.6 mg/mL (Normal) Comments: Vitamin D 25(OH) Status RangeDeficiency <20 ng/mL (50nmol/L)Insuffciency 20 - 30 ng/mL (50 - 75 nmol/L)Sufficiency 30 - 100 ng/mL (75 - 250 nmol/L)Toxicity >100 ng/mL (>250 nmol/L) 23-Qus-029028:14 CMP GAP 5 (Normal) Range: 5-15 CO2 [...] 7-18 GLU 90 mg/dL (Normal) Range: 70-110 59-Nuc-565812:14 LIPID VLDL 36 mg/dL (Normal) Range: 5-40 [...] CHOL 257 mg/dL (Abnormal) Comments: <200 mg/dL Jgmipeynl917-698 mg/dL Borderline>240 mg/dL High Risk :14 TSH 2.38 {uIU/mL} (Normal) Range: 0.358-3.74 18-Dcz-702674:14 VITD 25.6 mg/mL (Normal) Comments: Vitamin D 25(OH) Status RangeDeficiency <20 ng/mL (50nmol/L)Insuffciency 20 - 30 ng/mL (50 - 75 nmol/L)Sufficiency 30 - 100 ng/mL (75 - 250 nmol/L)Toxicity >100 ng/mL (>250 nmol/L) :56 Urinalysis, Office (36737) UA - BILIRUBIN Negative (Normal) UA - [...] CHOL 257 mg/dL (Abnormal) Comments: <200 mg/dL Xdczhwfvq462-430 mg/dL Borderline>240 mg/dL High Risk :57 TSH 3.02 {uIU/mL} (Normal) Range: 0.358-3.74 :51 LIPID PANEL (58900) Comments: PATIENT WAS FASTINGPERFORMED BY: [facility] [id number] LDL/HDL Ratio 2.9 {ratio_units} (Normal) Range: 0.0-3.2 [...] METABOLIC PANEL, Comments: PATIENT WAS FASTINGPERFORMED BY: SeamBLiSS LabCo2thelooUybfdd5201 [facility] [id number] Information: [id number] COMPREHENSIVE (60719) ALT (SGPT) 11 [iU]/L (Normal) Range: 0-32 [...] Glucose, Serum 85 mg/dL (Normal) Range: 65-99 33-Rka-557585:13 HIP, MIN 2 VIEWS Radiology Report See [...] Reynoso M.D.December 03, 2011 at 12:32:11 PM [id number] Signed GP/GP If you are the referring physician and would like to consult with theradiologist who provided this interpretation, please contact Aishwarya Rendon at [phone]. If this radiologist is unavailable, youwill be directed to another radiologist t o assist. If you are a patient with a question regarding this report, pleasecontactyour referring physician directly. Professional Interpretation Provided By: [employer], Phone ,Fax These documents contain legally protected [...] 1240 Sign b y: Hi Reynoso MD 05-Zca-431649:13 HIP, MIN 2 VIEWS Radiology Report See [...] Nguyen M.D.December 03, 2011 at 12:33:05 PM [id number] Signed GP/GP If you are the referring physician and would like to consult with theradiologist who provided this interpre tation, please contact Aishwarya Rendon at [phone]. If this radiologist is unavailable, youwill be directed to another radiologist to assist. If you are a patient with a question regarding t his report, pleasecontactyour referring physician directly. Professional Interpretation Provided By: [employer], Phone , These documents contain legally protected [...] Dicta cristiane on 12/02/11 1711 by Shiva SALAZAR,MaydaeleTranscribed on 12/03/11 1919 by ITS IMPORTSign by Shiva SALAZAR,Hi on 12/03/111919 Sign by: Hi Reynoso MD 68-Jbo-65516:48 METABOLIC PANEL, Comments: PATIENT WAS FASTINGPERFORMED BY: [facility]CoThe [facility] FallsCcctcc8465 [facility] [id number] Information: [id number] COMPREHENSIVE (99283) ALT (SGPT) 10 [iU]/L (Normal) Range: 0-32 [...] 80 mg/dL (Normal) Range: 65-99 :48 TSH (82256) Comments: PATIENT WAS FASTINGPERFORMED BY: [facility]CoThe [facility] T[facility] FallsDtalcp2501 [facility] [id number] TSH 2.860 {uIU/mL} (Normal) Range: 0.450-4.500 :48 LIPID PANEL (34957) Comments: PATIENT WAS FASTINGPERFORMED BY: [facility] Vntput8491 [facility] [id number] LDL/HDL Ratio 2.7 {ratio_units} (Normal) Range: 0.0-3.2 LDL Cholesterol Calc 161 mg/dL (Abnormal) Range: 0-99 VLDL Cholesterol Jorge 35 mg/dL (Normal) Range: 5-40 HDL Cholesterol 60 mg/dL (Normal) Comments: According to ATP-III Guidelines, HDL-C >59 mg/dL is considered anegative risk factor for CHD. Triglycerides 174 mg/dL (Abnormal) Range: 0-149 Cholesterol, Total 256 mg/dL (Abnormal) Range: 100-199 :08 [facility] Culture exhibits no growth. (Normal) :08 LIPID [...] 10,000 ORGANISM 1: MIXED GRAM POSITIVE ORGANISMS 49-Sds-453000:33 Urinalysis, Office (13675) UA - BILIRUBIN Negative (Normal) UA - [...] 7-18 GLU 82 mg/dL (Normal) Range: 70-110 9-Bae-352053:59 COMPLETE UA MUCUS, URINE 0 SEEN {/hpf} [...] NEGATIVE CLARITY CLEAR (Normal) COLOR YELLOW (Normal) 6-Qry-004702:59 LIPID VLDL 39 mg/dL (Normal) Range: 5-40 [...] ORGANISM 1: MIXED GRAM POSITIVE ORGANISMS (Normal) :37 TSH 0.02 {uIU/mL} (Abnormal) Range: 0.358-3.74 99-Doy-782227:01 CULTURE, URINE URINE CULTURE See Note (Normal) Comments: Culture exhibits no growth. 92-Boa-716359:40 L/S SPINE,MIN 4 VIEWS (MT) Radiology Report See Note (Normal) Comments: Exam Number: [id number] LUMBOSACRAL SPINE AP, lateral and oblique views of the lumbosacral spine were obtained. HISTORYThihomar is a 58-year-old female patient with history [...] abnormality is seen. Reported By: HI REYNOSO 00-Gaa-346199:14 Urinalysis, Office (87937) UA - LEUKOCYTE ESTERASE Small (Normal) UA - NITRITE Negative (Normal) URINE UROBILINGN FILOMENA TIMED Normal mg/dL (Normal) UA - PROTEIN Negative mg/dL (Normal) UA - PH 7.0 (Normal) UA - BLOOD Non Hemolyzed Trace (Normal) UA - SPECIFIC GRAVITY 1.010 (Normal) UA - KETONES Negative mg/dL (Normal) UA - BILIRUBIN Negative (Normal) UA - GLUCOSE Negative (Normal) 38-Bxp-09983:55 COMP METABOLIC CL 100 mmol/L (Normal) Range: [...] CHOL 202 mg/dL (Abnormal) Comments: <200 mg/dL Jwvtawqxz609-289 mg/dL Borderline>240 mg/dL High Risk TRIG 183 mg/dL (Normal) Comments: Serum Triglycerides Reference IntervalNormal <150 mg/dLBorderline high 150 - 199 mg/dLHigh 200 - 499 mg/ dLVery High > or = 500 mg/dL :55 TSH 0.03 {uIU/mL} (Abnormal) Range: 0.358-3.74 43-Jxr-716593:14 CBCD,SMEAR DIFF BAND 3 % (Normal) Range: [...] 4.2-5.4 WBC 4.0 K/mm3 (Abnormal) Range: 4.4-11.0 62-Xcq-160039:14 COMP METABOLIC ALK P 58 U/L (Normal) [...] 6.4-8.2 GLU 88 mg/dL (Normal) Range: 70-110 06-Tuh-486948:14 MICROSO AB 6676 281 {IU/mL} (Abnormal) Range: 0-34 Comments: Performed At: [address], [place] [id number] :14 T4 FREE DIRECT 0.7 ng/dL (Abnormal) [...] Report See Note (Normal) Comments: Exam Number: [id number] FIVE VIEW LUMBAR SPINE AP, lateral, both [...] If the patient persistsat being symptomatic, MR homar can is suggested to evaluate possible nerveroot [...] degenerative changes. Reported By: CATHIE SALCEDO M.D. 9-Rqx-324555:30 L/S SPINE,MIN 4 VIEWS Radiology Report See Note (Normal) Comments: Exam Number: [id number] FIVE VIEW LUMBAR SPINE AP, lateral, both [...] If the patient persistsat being symptomatic, MR homar can is suggested to evaluate possible nerveroot [...] degenerative changes. Reported By: CATHIE SALCEDO M.D. 67-Fzt-576553:24 CBCD,SMEAR DIFF BASOPHIL 1 % (Normal) Range: [...] 47-70 WBC 4.2 K/mm3 (Abnormal) Range: 4.4-11.0 36-Nnd-135028:24 COMP METABOLIC A/G 1.3 {RATIO} (Normal) Range: [...] T PROT 7.2 g/dL (Normal) Range: 6.4-8.2 96-Eps-969264:24 D BILI 0.09 mg/dL (Normal) Range: 0.00-0.30 [...] :24 TSH 4.71 {uIU/mL} (Normal) Range: 0.34-4.82 01-Zrq-496567:16 Urinalysis, Office (23472) UA - BLOOD Non Hemolyzed Trace (Normal) UA - GLUCOSE Negative (Normal) UA - LEUKOCYTE ESTERASE Trace (Normal) UA - NITRITE Negative (Normal) UA - PH 5.0 (Normal) UA - PROTEIN Negative mg/dL (Normal) UA - SPECIFIC GRAVITY 1.005 (Normal) URINE UROBILINGN FILOMENA TIMED Normal mg/dL (Normal) 79-Bsq-881238:15 COMPLETE UA BACTERIA RARE {/hpf} (Normal) BILIRUBIN [...] (Normal) Range: 0-5 Comments: Result: 0-5 SEEN 06-Qeg-267375:15 CULTURE, URINE URINE CULTURE See Note {CFU/mL} (Normal) Comments: COLONY COUNT 1000-10,000 ORGANISM 1: MIXED GRAM POS & NEG ORGANISMS :35 BMP Comments: COMMENTS: BLOSSOM,OR 06/04/06Precautions*: NOT APPLICABLE [...] 11.6-14.6 WBC 5.3 K/mm3 (Normal) Range: 4.4-11.0 40-Lby-954288:18 Urinalysis, Office (11715) UA - BILIRUBIN Negative (Normal) UA - BLOOD Non Hemolyzed Trace (Normal) UA - GLUCOSE Negative (Normal) UA - KETONES Negative mg/dL (Normal) UA - LEUKOCYTE ESTERASE Negative (Normal) UA - NITRITE Negative (Normal) UA - PH 5.0 (Normal) UA - PROTEIN Negative mg/dL (Normal) UA - SPECIFIC GRAVITY 1.025 (Normal) URINE UROBILINGN FILOMENA TIMED Normal mg/dL (Normal) 70-Kkg-479267:02 Urinalysis, Office (56846) UA - BILIRUBIN Negative (Normal) UA - BLOOD Non Hemolyzed Trace (Normal) UA - GLUCOSE Negative (Normal) UA - KETONES Negative mg/dL (Normal) UA - LEUKOCYTE ESTERASE Negative (Normal) UA - NITRITE Negative (Normal) UA - PH 5.0 (Normal) UA - PROTEIN Negative mg/dL (Normal) UA - SPECIFIC GRAVITY 1.010 (Normal) URINE UROBILINGN FILOMENA TIMED 2 mg/dL (Normal) 46-Fee-570739:46 Urinalysis, Office (44804) UA - BILIRUBIN Negative (Normal) UA - BLOOD Hemolyzed Large (Normal) UA - KETONES Negative mg/dL (Normal) UA - LEUKOCYTE ESTERASE Negative (Normal) UA - NITRITE Negative (Normal) UA - PH 5.0 (Normal) UA - PROTEIN Negative mg/dL (Normal) UA - SPECIFIC GRAVITY 1.015 (Normal) URINE UROBILINGN FILOMENA TIMED Normal mg/dL (Normal) 42-Ijd-98365:00 CULTURE, URINE Comments: The date and/or time [...] $$$ >=256 R TRIMETHOPRIM/SULFAMETHOXAZ $$ <=10 S 6-Xar-902920:05 CBCD,SMEAR DIFF BAND 1 % (Normal) Range: [...] 47-70 WBC 4.5 K/mm3 (Normal) Range: 4.4-11.0 5-Wfe-666605:05 LIVER ALB 3.5 g/dL (Normal) Range: 3.4-5.0 [...] mg/dL VLDL 9 mg/dL (Normal) Range: 5-40 6-Rmb-887990:05 ROUTINE UA BILIRUBIN URINE SeeNote (Normal) Comments: [...] 0.2 EU/dl (Normal) Range: 0.2 - 1.0 :05 TSH 3.47 {uIU/mL} (Normal) Range: 0.34-4.82 Plan of Care Name Dates Details Instructions Cough : Cough: cough Indication: Cough BMI [...] Current Prescription(s) Indication: Hypertension Planned Observations TSH (74246)Indication: Abnormal TSH On: 62-Wdw-443935:44 Request T4, FREE (THYROXINE) (83248)Indication: Abnormal TSH On: 33-Jgd-863881:44 Request T3, FREE (TRIDOTHYRONINE) (53651)Indication: Abnormal TSH On: 49-Wkm-166506:44 Request TSH (THYROID STIMULATING HORMONE) (49924)Indication: Acquired hypothyroidism On: 02-Lba-451948:45 Request OCCULT BLOOD FECES SCREEN (62439)Indication: Diarrhea, unspecified type On: 4-Mbc-672909:04 Request Lipid Panel (86317)Indication: Mixed hyperlipidemia On: 05-Ojb-231775:47 Request Comments: september 2016 HEPATIC FUNCTION PANEL (35923)Indication: Mixed hyperlipidemia On: 17-Ryn-647173:12 Request TSH (57606)Indication: Acquired hypothyroidism On: 69-Foi-930881:08 Request TSH (THYROID STIMULATING HORMONE) (91844)Indication: Acquired hypothyroidism On: 33-Fde-414035:25 Request Vitamin D Hydroxy (05596)Indication: VITAMIN D DEFICIENCY (Renamed from Avitaminosis D) On: 95-Urh-717706:23 Request METABOLIC PANEL, COMPREHENSIVE (27289)Indication: Hypertension On: 26-Tpq-971289:23 Request LIPID PANEL (46281)Indication: Mixed hyperlipidemia On: 85-Zry-288249:23 Request Metabolic Panel, Comprehensive (93685)Indication: Hypertension On: :01 Request Lipid Panel (94885)Indication: Mixed hyperlipidemia On: 32-Bwg-895632:01 Request TSH (76698)Indication: Acquired hypothyroidism On: 22-Ybc-549925:01 Request CALCIFEDIOL (17513)Indication: Acquired hypothyroidism On: 19-Oga-430277:01 Request METABOLIC PANEL, COMPREHENSIVE (46616)Indication: Hypertension On: 99-Hof-962191:32 Request TSH (18058)Indication: Acquired hypothyroidism On: 95-Igc-595150:31 Request LIPID PANEL (49974)Indication: Mixed hyperlipidemia On: 91-Fgq-567332:31 Request HEPATIC FUNCTION PANEL (08971)Indication: Mixed hyperlipidemia On: 64-Ink-819362:09 Request LIPID PANEL (86292)Indication: Mixed hyperlipidemia On: 56-Xcd-812007:09 Request URINE ANN CULTURE-FILOMENA COL COUNT (53503)Indication: Low back pain On: 49-Pkp-145752:33 Request CBC WITH MANUAL DIFF (89123)Indication: Hypertension On: 90-Xhh-722652:06 Request METABOLIC PANEL, COMPREHENSIVE (84079)Indication: Hypertension On: 11-Hup-988603:06 Request TSH (26504)Indication: Acquired hypothyroidism On: 09-Ixa-041425:06 Request LIPID PANEL (06670)Indication: Mixed hyperlipidemia On: 63-Qbc-982130:06 Request URINALYSIS, W/ MICRO (44236)Indication: Hypertension On: 16-Rzg-321089:12 Request TSH (70795)Indication: Acquired hypothyroidism On: 72-Ldb-689938:12 Request METABOLIC PANEL, COMPREHENSIVE (11450)Indication: Hypertension On: 10-Tqt-707966:12 Request LIPID PANEL (23382)Indication: Mixed hyperlipidemia On: 14-Ypj-669676:12 Request HEPATIC FUNCTION PANEL (10187)Indication: Mixed hyperlipidemia On: 6-Fgd-038280:03 Request LIPID PANEL (85458)Indication: Mixed hyperlipidemia On: 4-Xit-036947:03 Request LIPID PANEL (43228)Indication: Mixed hyperlipidemia On: 4-Aqv-203164:50 Request TSH (45811)Indication: Acquired hypothyroidism On: 3-Dfb-794942:49 Request METABOLIC PANEL, COMPREHENSIVE (95471)Indication: Hypertension, benign On: 8-Eas-908720:49 Request URINE ANN CULTURE (FILOMENA COL COUNT) (47911)Indication: Pain in unspecified hip On: 95-Uqn-861811:16 Request TSH (60337)Indication: Acquired hypothyroidism On: 78-Odm-763435:51 Request METABOLIC PANEL, COMPREHENSIVE (63426)Indication: Hypertension, benign On: 5-Qzs-489443:58 Request HEPATIC FUNCTION PANEL (85962)Indication: Mixed hyperlipidemia On: 3-Uyb-358803:58 Request LIPID PANEL (74642)Indication: Mixed hyperlipidemia On: 1-Ggs-300646:58 Request TSH (00007)Indication: Acquired hypothyroidism On: 9-Fhm-300964:54 Request HEPATIC FUNCTION PANEL (59950)Indication: Mixed hyperlipidemia On: :40 Request LIPID PANEL (74475)Indication: Mixed hyperlipidemia On: :40 Request Anti-TPO Antibody (87833)Indication: Abnormal TSH On: :31 Request T4, TOTAL (38716)Indication: Abnormal TSH On: :30 Request T4, FREE (18647)Indication: Abnormal TSH On: 93-Nqv-532113:30 Request TSH (14790)Indication: Abnormal TSH On: 77-Blm-610902:30 Request CBC WITH MANUAL DIFF (19774)Indication: Hypertension, benign On: 73-Htx-109168:29 Request METABOLIC PANEL, COMPREHENSIVE (54084)Indication: Hypertension, benign On: 64-Lra-248820:28 Request Lipase (24301)Indication: Nausea On: :02 Request Amylase (75093)Indication: Nausea On: 4-Hxa-902705:02 Request URINALYSIS W/O MICRO (21012)Indication: Dizziness and giddiness On: :58 Request TSH (76457)Indication: Dizziness and giddiness On: 7-Nbv-996355:58 Request METABOLIC PANEL, COMPREHENSIVE (69434)Indication: Dizziness and giddiness On: 8-Yfe-972454:57 Request CBC WITH MANUAL DIFF (18093)Indication: Dizziness and giddiness On: 0-Rxl-865177:57 Request HEPATIC FUNCTION PANEL (46685)Indication: Mixed hyperlipidemia On: 8-Hbd-126973:59 Request LIPID PANEL (71216)Indication: Mixed hyperlipidemia On: 3-Nln-899748:59 Request URINALYSIS W/O MICRO (50379)Indication: Hypertension, benign On: 7-Wep-129083:05 Request TSH (08893)Indication: Hypertension, benign On: 3-Rkm-316125:05 Request CBC WITH MANUAL DIFF (58505)Indication: Hypertension, benign On: 7-Rrd-259707:05 Request METABOLIC PANEL, COMPREHENSIVE (33498)Indication: Hypertension, benign On: 2-Vxa-136227:05 Request LIPID PANEL (28165)Indication: Mixed hyperlipidemia On: 3-Rlz-556052:04 Request HEPATIC FUNCTION PANEL (23099)Indication: Mixed hyperlipidemia On: 8-Wlv-953585:04 Request URINE ANN CULTURE-IDENTIFICATN (52312)Indication: Hematuria On: :57 Request URINALYSIS (09372)Indication: Hematuria On: :57 Request URINE ANN CULTURE-IDENTIFICATN (95755)Indication: Hematuria On: 65-Vwz-290708:56 Request Comments: if neg- ct of abdomen and pelvis URINALYSIS (79248)Indication: Hypertension On: 21-Gbs-843423:04 Request TSH (34015)Indication: Hypertension On: 97-Vuo-121187:03 Request CBC WITH MANUAL DIFF (62810)Indication: Hypertension On: 90-Cur-702026:03 Request METABOLIC PANEL, COMPREHENSIVE (25402)Indication: Hypertension On: 13-Jvi-849371:03 Request LIPID PANEL (25540)Indication: Mixed hyperlipidemia On: 58-Zhr-133534:03 Request Planned Procedures CHEST XRAY, PA & LATERAL (23361)By: On: 10-Nov-2017 Intent Louise Darby Spirometry (22337)By: Wilner On: 10-Nov-2017 Intent Louise Comments: Normal X-RAY RIGHT WRIST, 3+ VIEWS On: 01-Sep-2017 Intent (25400)By: Lilliana Mishra DO, DO, Kathleen Radiology - Wrist - LeftBy: Tad On: 01-Sep-2017 Intent Lilliana RIOS DO, Kathleen X-RAY OF COCCYX, TWO VIEWS On: 01-Sep-2017 Intent (81251)By: Lilliana Mishra DO, DO, Kathleen PNEUM VAC ADLT/IMUMNOSPR, SBC/INTRM On: 29-Apr-2017 Intent (42570)By: Lilliana Mishra DO Comments: pneumovax prefilled syringe injectionlot: [id number]: 07/05/2018L DELT IMpt tolerated wellAD MACO Tad RIOSLilliana Flu Vaccine (Quadrivalent) 25063Wd: On: 29-Jan-2017 Intent Tad RIOS Lillianajanell Mishra DO, Comments: lot: [id number]: 09/01/17ite/route: L david, IMamt: 0.5mlVIS and ABN signed when applicableALISHA Crow ORTHOSTATIC BLOOD PRESSURE On: 22-Aug-2016 Intent ASSESSMENT (87731)By: Wilner, Comments: Jose Antonio Gil ULTRASOUND AORTA (32916)By: Tad On: 18-Jul-2016 Intent Lilliana RIOS DO, Kathleen EMGBy: Amy Coppola CNP On: 18-Oct-2014 Intent Nerve ConductionBy: Amy Coppola CNP On: 18-Oct-2014 Intent E Radiology - Wrist - RightBy: Ciesa On: 18-Oct-2014 Intent Amy MAGAÑA FLU VAC, SPLIT, >3 YEARS, INTRAMUSC On: 12-Jan-2013 Intent (28679)By: Yoselin Evans Comments: Lot:[id number]:Dose:0.5mLRoute:IMSite:L DltdGiven By:YOUNG signed IMMUNIZ ADMNIN, 1 VAC, SNGL/COMBO On: 12-Jan-2013 Intent (21039)By: Yoselin Evans Eprescribed prescriptions On: 04-Jan-2013 Intent (G8553)By: Mignon Irving EKG (91325)By: Mercedez Tapia On: 06-Apr-2012 Intent Comments: ekg showed normal sinus rhythym, normal axis, no acute st/t wave changes Eprescribed prescriptions On: 06-Apr-2012 Intent (G8553)By: Mercedez Tapia Eprescribed prescriptions On: 17-Feb-2012 Intent (G8553)By: Louise Hahn LPN FLU VAC, SPLIT, >3 YEARS, INTRAMUSC On: 02-Dec-2011 Intent (83438)By: Mercedez Tapia Comments: Lot #[id number]-7/30/13Site-left deltoidgiven by: Theresa Lozano LPN Radiology - Hip - BilateralBy: Fast On: 02-Dec-2011 Intent DO, Mayra A IMMUNIZ ADMNIN, 1 VAC, SNGL/COMBO On: 02-Dec-2011 Intent (18242)By: Mercedez Tapia [place] (26509)By: Regina, On: 08-Aug-2011 Intent Mercedez Eprescribed prescriptions On: 29-Jul-2011 Intent (G8553)By: Beto DO Mayra A EKG (04681)By: Mercedez Tapia On: 01-Apr-2011 Intent Comments: ekg showed normal sinus rhythym, normal axis, no acute st/t wave changes FLU VAC, SPLIT, >3 YEARS, INTRAMUSC On: 01-Apr-2011 Intent (60854)By: Mercedez Tapia Comments: work TDAP VACCINE >7 IM (27270)By: Mast On: 31-Jul-2010 Intent Loly COYLE Comments: Lot #:[id number] date: 05/27Amount given: 0.5 mlRoute: IMSite given: left deltoidGiven by: Son Marrero RN FLU VAC, SPLIT, >3 YEARS, INTRAMUSC On: 20-Feb-2010 Intent (69840)By: Mercedez Tapia IMMUNIZ ADMNIN, 1 VAC, SNGL/COMBO On: 20-Feb-2010 Intent (16752)By: Mercedez Tapia Comments: Lot #[id number]-L armDose0.5mlgiven by: Radiology - Lumbar SpineBy: Fast On: 25-Jul-2009 Intent DO, Mayra A EKG (66270)By: Mercedez Tapia On: 13-Feb-2009 Intent Comments: ekg showed normal sinus rhythym, normal axis, no acute st/t wave changes Radiology - Hip - RightBy: Fast DO, On: 23-Jun-2007 Intent Mayra A Radiology - Lumbar SpineBy: Fast On: 23-Jun-2007 Intent DO, Mayra A FLU VAC, SPLIT, >3 YEARS, INTRAMUSC On: 03-Feb-2007 Intent (68092)By: Catia Clement Comments: Lot #[id number] Exp-09/14/07Site-left deltoid Dose0.5ccgiven by Paul Clement [employer] IMMUNIZ ADMNIN, 1 VAC, SNGL/COMBO On: 03-Feb-2007 Intent (75362)By: Catia Clement EKG (51396)By: Mercedez Tapia On: 14-May-2006 Intent Comments: done-jjpekg showed normal sinus rhythym, normal axis, no acute st/t wave changes CT - Abdomen & Pelvis Stone On: 07-Apr-2006 Intent ProtocolBy: Fast DO, Mayra A Instructions Name Dates Details BMI 33.0-33.9,adult : How to access health [...] inoculation against influenza Encounters Office Visit On: 10-Nov-2017 13:53 Encounter Reason: [...] no gerd but 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 job at [employer]- 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
--- OUTSIDE RECORDS SUMMARY | 2018-06-05 22:12 | XMS RPT_ITS | Continuity of Care Document ---
:1950 Author Organization [facility] Address [facility] [address] [place] [address] Phone Care Team Providers Name Role Phone [...] 0 days Quantity: 10 {Patch} Refills: 0 Ordered:29-Apr-2017 Camilo Mishra DO, DO, Kathleen Start : 29-Apr-2017 Active VALTREX, 500MG (Oral Tablet) 1 tab [...] days Refills: 0 Ordered:25-Jul-2009 Chapis Tapiactive ZOSTAVAX, 78213ULX/0.65ML (Subcutaneous Solution Reconstituted) 1 (one) For Solution [...] Quantity: 2 {Tablet} Refills: 0 Ordered:06-Apr-2012 Fast DO Mayra A Start : [...] Result: Comments: See Note; NOTES: [facility] Imaging Services [address] [place] [address] Chest PA and Lateral MR#: [id number] Acct: [id number] Name: PAMELA GUTIERREZ Rep #: [id number] : 1950 F 67 From: Dylan Amado MD PCP: Lilliana Mishra DO Status: REG CLI Study: Chest PA and Lateral Date of Exam: 11/10/17 Exam# [id number] Ordering Dr: Louise Darby 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-Neema STUDY: X- RAY CHEST REASON FOR EXAM: [...] Fax CC: LAZARO Darby; Lilliana Mishra DO Garbage Collector Driver: Signed 01-Sep-2017 Sacrum-Coccyx min 2 Views Result: Comments: See Note; NOTES: [facility] Imaging Services [address] [place] [address] Sacrum-Coccyx min 2 Views MR#: [id number] Acct: [id number] Name: PMAELA GUTIERREZ Rep #: [id number] : 1950 F 67 From: Mikael Aleaxnder MD PCP: Lilliana Mishra DO Status: REG CLI Study: Sacrum-Coccyx min 2 Views Date of Exam: 09/01/17 Exam# [id number] Ordering Dr: [facility]ill[facility] - SACRUM/COCCYX REASON FOR EXAM: [...] Service support , CC: Lilliana Mishra DO Garbage Collector Driver: Signed 01-Sep-2017 Wrist min 3 Views Result: Comments: See Note; NOTES: [facility] Imaging Services [address] [place] [address] Wrist min 3 Views MR#: [id number] Acct: [id number] Name: PAMELA GUTIERREZ Rep #: [id number] : 1950 F 67 From: Mikael Alexander MD PCP: Lilliana Mishra DO Status: REG CLI Study: Wrist min 3 Views Date of Exam: 09/01/17 Exam# [id number] Ordering Dr: Lilliana Mishra DO STUDY: X-RAY [...] Service support , CC: Lilliana Mishra DO Garbage Collector Driver: Signed 01-Sep-2017 Wrist min 3 Views Result: Comments: See Note; NOTES: [facility] Imaging Services [address] [place] [address] Wrist min 3 Views MR#: [id number] Acct: [id number] Name: PAMELA GUTIERREZ Rep #: [id number] : 1950 F 67 From: Mikael Alexander MD PCP: Lilliana Mishra DO Status: REG CLI Study: Wrist min 3 Views Date of Exam: 09/01/17 Exam# [id number] Ordering Dr: Lilliana Mishra DO STUDY: X-RAY [...] Service support , CC: Lilliana Mishra DO Garbage Collector Driver: Signed 08-Mar-2017 Urgent Care Visit Report Result: Comments: See Note; NOTES: [facility] [address] [place] [address] OFFICE VISIT Date of Service: 03/08/17 MR#: [id number] Acct: [id number] Name: PAMELA GUTIERREZ Re p #: [id number] : 1950 Provider: ANISA Santamaria Age/Sex: 66/F Location: [facility] Status: Signed Intake Intake Visit Reasons: sinus Is patient in pain?: No Allergies No Known Allergies Allergy (Verified 03/08/17 13:51) Medications Escitalopram Oxalate [Lexapro] 5 mg PO DAILY 07/11/14 [History Confirmed 03/08/17] Levothyroxine [Synthroid] 25 mcg PO DAILY 07/11/14 [History Confirmed 7] Lisinopril [Zestril] 2.5 mg PO DAILY 07/11/14 [History Confirmed 03/08/17] Pantoprazole Sodium [Protonix] 40 mg PO DAILY 07/11/14 [History Confirmed 03/08/17] oydkljwmiuskccn-tibipzcvkwpywza-PU 2 mg- 30 mg-10 mg/5 mL syrup [...] person, oriented to place, oriented to time HENCA Head: normoceph alic Ears: external ears normal, [...] Result: Comments: See Note; NOTES: [facility] Imaging Services [address] [place] [address] [place] [address] Verdana 4d Aorta MR#: [id number] Acct: [id number] Name: PAMELA GUTIERREZ Rep #: [id number] D OB: 1950 F 65 From: Hi Reyonso MD PCP: Lilliana Mishra DO Status: REG CLI Study: Aorta Date of Exam: 07/19/16 Exam# [id number] Ordering Dr: Lilliana Mishra DO PROCEDURES: ULTRASOUND [...] Hi Reynoso MD at 9:24 EDT Tel [phone], Service support , CC: Lilliana Mishra DO Garbage Collector Driver: Signed 18-Oct-2014 Wrist min 3 Views Result: Comments: See Note; NOTES: [facility] Imaging Services [address] [place] [address] Radiology Report MR#: [id number] Acct: [id number] Name: PAMELA GUTIERREZ Rep #: [id number] : 1950 F 64 From: Hi Reynoso MD PCP: Mayra Pérez DO Status: REG CLI Study: Wrist min 3 Views Date of Exam: 10/18/14 Exam# [id number] Ordering Dr: Amy Coppola STUDY: X-RAY - [...] Hi Reynoso MD at 16:02 EDT Tel [phone], Service support [phone], RAD/Wrist mi n 3 Views IMPRESSION: Normal x-ray examination of the wrist. Electronically Signed: Hi Reynoso MD at 16:02 EDT Tel [phone], Service support [phone], CC: Amy Coppola; Mayra Pérez DO Garbage Collector Driver: Signed 17-Jul-2014 Emergency Department Summary Result: Comments: See Note; NOTES: [facility] Medical Records Department [address] [place] [address] Emergency Department Summary MR#: [id number] Acct: [id number] Name: PAMELA GUTIERREZ Rep #: [id number] : 1950 63 From: Ronald Payne MD PCP: Mayra Pérez DO Status: DEP ER DATE OF SERVICE: 07/11/2014 CHIEF COMPLAINT: Left wrist pain and knee pain. HISTORY OF FL ESENT ILLNESS: The patient was in an [...] medicine here to go. She will use fmot-vnk-ymcvrin ice, elevation may help. Follow up within [...] Berry C: [facility] Ronald Langston MD T: [facility] JOB: [id number] 07/17/14 152 <Electronically signed by Ronald Payne MD> Date Ronald Payne MD CC: Mayra Pérez DO; Ronald Langston MD; [facility] Date Dictated: 07/11/142249 Date Transcribed: 07/11/142249 Garbage Collector Driver: Signed 11-Jul-2014 Discharge Instruction Result: Comments: See Note; NOTES: [facility] Medical Records Department [address] [facility] [place] [address] Discharge Instruction 07/11/142130 MR#: [id number] Acct: [id number] Name: PAMELA GUTIERREZ Rep #: [id number] : 1950 63 From: Ronald Payne MD [...] contact your doctor. Call [facility] ( [phone]) or report to the [facility] Emergency Room. Call 911 if necessary. 07/11/142131 <Electronically signed by Ronald Payne MD> Date Ronald Payne MD Cos igner Signature (If Indicated): Date CC: aMyra Pérez DO 11-Jul-2014 Wrist min 3 Views Result: Comments: See Note; NOTES: [facility] Imaging Services [address] [facility] [place] [address] Radiology Report MR#: [id number] Acct: [id number] Name: PAMELA GUTIERREZ Rep #: [id number] : 1950 F 63 From: Hi Reynoso MD PCP: Mayra Pérez DO Status: DEP ER Study: Wrist min 3 Views Date of Exam: 07/11/14 Exam# [id number] Ordering Dr: Ronald Payne MD STUDY: X-RAY [...] Hi Reynoso MD at 9:18 EDT Tel [phone], Service support [phone], RAD/Wrist min 3 Views IMPRESSION: I suspect a nondisplaced linear fracture involving the distal radial metaphysis with extension to the articular surface. Soft tissue swelling. Electronically Signed: Hi Reynoso MD at 9:18 EDT Tel [phone], Service support [phone], CC: Mayra Pérez DO; Ronald Payne MD Garbage Collector Driver: Signed 22-Oct-2013 EKG (02634) Comments: ekg showed normal sinus rhythym, normal axis, no acute st/t wave changes biphasic twave otherwise no change Result: [MEASUREMENTS ANALYSIS] Date of Test: 10/22/2013 14:05:39; Heart Rate: 67; FL Interval: 154; QRS: 90; QT Interval: 388; Corrected QT Interval (QTc): 400; P Wave [place]: 31; QRS Wave [place]: -15; T Wave [place] : 1; Blood Pressure: 112/72 [ECG DIAGNOSTIC STATEMENTS] Date of Test: 10/22/2013 14:05:39; Summary: Sinus Rhythm - Diffuse nonspecific T-abnormality. ABNORMAL Immunization Name Dates Details Influenza (3 years and up) on: 03-Feb-2007 Comments: Lot #[id number] Exp-09/14/07Site-left deltoid Dose0.5ccgiven by Paul Clement LPN [...] smoker Vital Signs Date Test Result Details 81-Erp-673536:56 Temperature 97.6 f Comments: Method: Temporal Pulse [...] kg/m2 Body Surface Area Calculated 2.03 m2 58-Itk-335203:25 Pulse 78 /min Comments: Pattern: Regular Respiration [...] kg/m2 Body Surface Area Calculated 2.03 m2 74-Qtv-395319:35 Temperature 97.7 f Pulse 72 /min Comments: [...] kg/m2 Body Surface Area Calculated 2.04 m2 42-Qrx-913607:30 Temperature 99.3 f Pulse 80 /min Comments: [...] Results Date Description Value Details :40 TSH (15295) Comments: PATIENT WAS FASTINGPERFORMED BY: BN [facility] Psbjwuvaxs7155 [facility] [id number] BY: CB [facility] Abdahi2669 [facility] [id number]; fu 09-01-17 KF TSH 0.340 {uIU/mL} (Abnormal) Range: 0.450-4.500 61-Njg-971398:40 CALCIFIDIOL (36808) VIT D Comments: PATIENT WAS FASTINGPERFORMED BY: [place] 783197 [facility] [id number] BY: [facility]6370 [facility] [id number] 25 Vitamin D, 25-Hydroxy 37.6 ng/mL (Normal) Range: 30.0-100.0 Comments: Vitamin D deficiency has been defined by the [place] ofJ.W. [facility] Hospitalcine and an Endocrine Society practice guideline as alevel of serum 25-OH vitamin D less than 20 ng/mL (1,2).The Endocrine Society went on to further define vitamin Dinsufficiency as a level between 21 and 29 ng/mL (2).1. IOM ([place] of Medicine). 2010. Dietary reference intakes for calcium and D. [place]: The National Academies Press.2. Fletcher MF, Edgardo COOL, Dina KAPLAN, et al. Evaluation, treatment, and prevention of vitamin D deficiency: an Endocrine Society clinical practice guideline. JCEM. 2010; 96(7):1911-30. 44-Rjt-165386:40 LIPOPROTEIN, BLD, BY NMR Comments: PATIENT WAS FASTINGPERFORMED BY: [place] 783197 [facility] [id number] BY: Lumin[employer] Technology GroupAscension Genesys Hospital6370 [facility] [id number] (23791) LP-IR Score 71 (Abnormal) Comments: INSULIN RESISTANCE [...] were developed and their performance characteristicsdetermined by [email or web address]. These assays have not been cleared by [...] 1600 - 2000 Very High > 2000 19-Yny-898955:40 METABOLIC PANEL, Comments: PATIENT WAS FASTINGPERFORMED BY: BN [facility] [address] [id number] BY: CB [facility] Ijtgzn6069 [facility] [id number] COMPREHENSIVE (24833) ALT (SGPT) 16 [iU]/L (Normal) Range: 0-32 [...] 8-27 Glucose 85 mg/dL (Normal) Range: 65-99 37-Cmh-667961:40 CBC with auto diff Comments: PATIENT WAS FASTINGPERFORMED BY: BN [facility] [address] [id number] BY: CB [facility] Wmqcnk6226 [facility] [id number] (62888) Immature Grans (Abs) 0.0 {x10E3/uL} (Normal) Range: [...] 3.77-5.28 WBC 4.8 {x10E3/uL} (Normal) Range: 3.4-10.8 04-Inx-797579:43 Microscopic Examination Comments: PATIENT WAS FASTINGPERFORMED BY: InfoDif6370 dot429[facility] [id number] Bacteria None seen (Normal) Mucus Threads Present (Normal) Epithelial Cells (non renal) 0-10 {/hpf} (Normal) Range: 0 - 10 RBC None seen {/hpf} (Normal) Range: 0 - 2 WBC 0-5 {/hpf} (Normal) Range: 0 - 5 22-Koh-306247:43 CALCIFEDIOL (62193) Comments: PATIENT WAS FASTINGPERFORMED BY: InfoDif6370 dot429[facility] [id number] Vitamin D, 25-Hydroxy 68.6 ng/mL (Normal) Range: 30.0-100.0 Comments: Vitamin D deficiency has been defined by the [place] ofMedicine and an Endocrine Society practice guideline as alevel of serum 25-OH vitamin D less than 20 ng/mL (1,2).The Endocrine Society went on to further define vitamin Dinsufficiency as a level between 21 and 29 ng/mL (2).1. IOM ([place] of Medicine). 2010. Dietary reference intakes for calcium and D. [place]: The National Academies Press.2. Fletcher MF, Edgardo COOL, Dina KAPLAN, et al. Evaluation, treatment, and prevention of vitamin D deficiency: an Endocrine Society clinical practice guideline. JCEM. 2010; 96(7):1911-30. :43 TSH (84387) Comments: PATIENT WAS FASTINGPERFORMED BY: Beetailer PerpetuallUNC Health Lenoir [id number] TSH 4.800 {uIU/mL} (Abnormal) Range: 0.450-4.500 :43 URINALYSIS, W/ MICRO (34448) Comments: PATIENT WAS FASTINGPERFORMED BY: DupliaUNC Health [facility] [id number] Microscopic Examination See below: (Normal) Comments: Microscopic was indicated and was performed. Nitrite, Urine Negative (Normal) Urobilinogen,Semi-Qn 0.2 mg/dL (Normal) Range: 0.2-1.0 Bilirubin Negative (Normal) Occult Blood 1+ (Abnormal) Ketones Negative (Normal) Glucose Negative (Normal) Protein Negative (Normal) WBC Esterase Trace (Abnormal) Appearance Clear (Normal) Urine-Color Yellow (Normal) pH 6.0 (Normal) Range: 5.0-7.5 Specific [place] 1.013 (Normal) Range: 1.005-1.030 :43 MICROALBUMIN: CREATININE RATIO Comments: PATIENT WAS FASTINGPERFORMED BY: Beetailer PerpetuallUNC [facility] [id number] (46079) AND (15607) Microalb/Creat Ratio <4.4 {mg/g_creat} (Normal) Range: 0.0-30.0 Microalbumin, Urine <3.0 ug/mL (Normal) Creatinine, Urine 67.5 mg/dL (Normal) :43 METABOLIC PANEL, COMPREHENSIVE Comments: PATIENT WAS FASTINGPERFORMED BY: [facility]plia[facility] [id number] (96736) ALT (SGPT) 21 [iU]/L (Normal) Range: 0-32 [...] Glucose, Serum 87 mg/dL (Normal) Range: 65-99 32-Eqi-884978:43 LIPID PANEL (46821) Comments: PATIENT WAS FASTINGPERFORMED BY: LabCoHunterdon Medical CenterVstoes7393 [facility] [id number] LDL/HDL Ratio 2.1 {ratio_units} (Normal) Range: 0.0-3.2 [...] Range: 100-199 :43 CBC W/AUTO DIFF WBC (46024) Comments: PATIENT WAS FASTINGPERFORMED BY: Key Ring70 WebPesados [facility] [id number] Immature Grans (Abs) 0.0 {x10E3/uL} (Normal) Range: [...] {x10E3/uL} (Normal) Range: 3.4-10.8 :33 C-REACTIVE PROTEIN (59390) Comments: PATIENT NOT FASTINGPERFORMED BY: Kngroo Wncaca0112 [facility] [id number] C-Reactive Protein, Quant 0.7 mg/L (Normal) Range: 0.0-4.9 :33 SED RATE ERYTHROCYTE (22915) Comments: PATIENT NOT FASTINGPERFORMED BY: LabCoHunterdon Medical CenterLbvgjl4172 [facility] [id number] Sedimentation Rate-Westergren 3 mm/h (Normal) Range: 0-40 :33 CBC, PLATELETS & AUT DIFF Comments: PATIENT NOT FASTINGPERFORMED BY: LabCoHunterdon Medical CenterEybhvs8923 [facility] [id number] Information: [id number] (57747) Immature Grans (Abs) 0.0 {x10E3/uL} (Normal) Range: [...] 3.77-5.28 WBC 5.6 {x10E3/uL} (Normal) Range: 3.4-10.8 2-Utd-685196:33 METABOLIC PANEL, COMPREHENSIVE Comments: PATIENT NOT FASTINGPERFORMED BY: Kngroo Dfwwer3161 [facility] [id number] (53892) ALT (SGPT) 18 [iU]/L (Normal) Range: 0-32 [...] mg/dL (Normal) Range: 65-99 :26 ANN CULTURE-STOOL (76918) Comments: PATIENT NOT FASTINGPERFORMED BY: Lumin[facility] Technology GroupAscension Genesys Hospital6370 [facility] [id number] Information: SRC:ST SRC:ST E coli Shiga Toxin EIA Negative (Normal) Result 1 NCI (Normal) Comments: No Campylobacter species isolated. Campylobacter Culture Final report (Normal) Result 1 NSS (Normal) Comments: No Salmonella or Shigella recovered. Salmonella/Shigella Screen Final report (Normal) :26 Clostridium difficile Toxin Comments: PATIENT NOT FASTINGPERFORMED BY: [facility]6370 [facility] [id number] A+B, EIA (90005) C difficile Toxins A+B, EIA Negative (Normal) :26 LEUKOCYTE COUNT, FECAL (15926) Comments: PATIENT NOT FASTINGPERFORMED BY: [address] [id number] Result 1 NWBC (Normal) Comments: No white blood cells seen. White Blood Cells (WBC), Final report (Normal) Stool :26 OVA & PARASITE DIR SMEAR Comments: PATIENT NOT FASTINGPERFORMED BY: [address] [id number] (27010) Result 1 NOCP (Normal) Comments: No ova, cysts, or parasites seen. Ova + Parasite Exam Final report (Normal) Comments: These results were obtained using wet preparation(s) and trichromestained smear. This test does not include testing for Cryptosporidiumparvum, Cyclospora, or Microsporidia. :44 TSH (30132) Comments: PATIENT WAS FASTINGPERFORMED BY: [facility]6370 [facility] [id number] TSH 1.290 {uIU/mL} (Normal) Range: 0.450-4.500 :44 CBC W/AUTO DIFF WBC (96900) Comments: PATIENT WAS FASTINGPERFORMED BY: [address] [id number] Immature Grans (Abs) 0.0 {x10E3/uL} (Normal) Range: [...] 3.77-5.28 WBC 5.6 {x10E3/uL} (Normal) Range: 3.4-10.8 43-Ktv-007583:44 METABOLIC PANEL, COMPREHENSIVE Comments: PATIENT WAS FASTINGPERFORMED BY: LabCoHunterdon Medical CenterWrgnaq8306 [facility] [id number] (22822) ALT (SGPT) 10 [iU]/L (Normal) Range: 0-32 [...] Glucose, Serum 91 mg/dL (Normal) Range: 65-99 70-Psb-875615:44 LIPID PANEL (40511) Comments: PATIENT WAS FASTINGPERFORMED BY: [facility]ia[facility] [id number]; non-emergent till apt tomorrow LDL/HDL Ratio 3.3 [...] 246 mg/dL (Abnormal) Range: 100-199 :59 TSH (41135) Comments: PATIENT WAS FASTINGPERFORMED BY: [facility]iaUNC [facility] [id number] TSH 0.081 {uIU/mL} (Abnormal) Range: 0.450-4.500 :59 Vitamin D Hydroxy (88880) Comments: PATIENT WAS FASTINGPERFORMED BY: [facility]iaUNC [facility] [id number] Vitamin D, 25-Hydroxy 42.0 ng/mL (Normal) Range: 30.0-100.0 Comments: Vitamin D deficiency has been defined by the [place] ofMedicine and an Endocrine Society practice guideline as alevel of serum 25-OH vitamin D less than 20 ng/mL (1,2).The Endocrine Society went on to further define vitamin Dinsufficiency as a level between 21 and 29 ng/mL (2).1. IOM ([place] of Medicine). 2010. Dietary reference intakes for calcium and D. [place]: The National Academies Press.2. Fletcher MF, Edgardo COOL, Dina KAPLAN, et al. Evaluation, treatment, and prevention of vitamin D deficiency: an Endocrine Society clinical practice guideline. JCEM. 2010; 96(7):1911-30. 94-Iuk-40544:59 LIPID PANEL (13079) Comments: PATIENT WAS FASTINGPERFORMED BY: LabCoHunterdon Medical CenterRejwos7753 [facility] [id number] Information: [id number] LDL/HDL Ratio 2.8 {ratio_units} (Normal) Range: 0.0-3.2 [...] Cholesterol, Total 229 mg/dL (Abnormal) Range: 100-199 03-Bpp-594274:56 Allergen, Rast Food Profile Comments: Test performed at:[facility] Aunzvfwofw[address] [place], [place] [address] RAST COMMENT Comment (Normal) Comments: Levels of [...] in this mix are: Blue mussel Fish [place] Shrimp Tuna EGG, WHOLE <0.10 kU/L (Normal) CHOCOLATE <0.10 kU/L (Normal) Comments: Performed at: [facility] Lab[address] [id number] Director: Vaughn Garsia MD, Phone: [phone] BEEF <0.10 kU/L (Normal) PORK <0.10 kU/L (Normal) SOYBEAN <0.10 kU/L (Normal) PEANUT <0.10 kU/L (Normal) CORN <0.10 kU/L (Normal) WHEAT <0.10 kU/L (Normal) MILK (COW) <0.10 kU/L (Normal) 32-Hvn-90205:38 URINE ANN CULTURE-FILOMENA COL Comments: PATIENT NOT FASTINGPERFORMED BY: LabCoHunterdon Medical CenterBzdolm3498 [facility] [id number] Information: SRC:WW [facility] G86486 COUNT (26019) Antimicrobial MIHEAD (Normal) Comments: S = Susceptible; [...] mL (Abnormal) Urine Final report Culture,Comprehensive (Abnormal) 53-Uyw-078669:11 Urinalysis, Office (05127) UA - LEUKOCYTE ESTERASE Large (Normal) UA [...] :33 Comprehensive Metabolic Profil Comments: Test performed at:[facility] Cvuyoadurq3641 [address] [place] [address] GAP 4 (Abnormal) Range: 5-15 [...] 70-110 :33 Lipid Profile Comments: Test performed at:[facility] Humlotahhw5764 [address] CentenoApoorva [place], [place] [address] VLDL 31 mg/dL (Normal) Range: 5-40 LDL [...] 200-240 mg/dL Borderline >240 mg/dL High Risk 7-Tmw-296247:33 Thyroid Stim Hormone (TSH) Comments: Test performed at:[facility] Aquymtsoub[address] [place], [place] [address] TSH 3.03 {uIU/mL} (Normal) Range: 0.358-3.74 :57 TSH (36790) Comments: PATIENT WAS FASTINGPERFORMED BY: [facility] Efdkym7367 [facility] [id number] TSH 7.420 {uIU/mL} (Abnormal) Range: 0.450-4.500 :57 METABOLIC PANEL, Comments: PATIENT WAS FASTINGPERFORMED BY: [facility] Wrqstu8161 [facility] [id number] Information: [id number] COMPREHENSIVE (77642) ALT (SGPT) 10 [iU]/L (Normal) Range: 0-32 [...] mg/dL (Normal) Range: 65-99 :57 LIPID PANEL (87273) Comments: PATIENT WAS FASTINGPERFORMED BY: [facility] Ycrncg6241 [facility] [id number] LDL/HDL Ratio 4.1 {ratio_units} (Abnormal) Range: 0.0-3.2 [...] Cholesterol, Total 280 mg/dL (Abnormal) Range: 100-199 03-Vaq-597902:09 CMP GAP 7 (Normal) Range: 5-15 CO2 [...] 7-18 GLU 85 mg/dL (Normal) Range: 70-110 15-Rex-601799:09 LIPID VLDL 39 mg/dL (Normal) Range: 5-40 [...] CHOL 260 mg/dL (Abnormal) Comments: <200 mg/dL Qjmkpnmwt560-820 mg/dL Borderline>240 mg/dL High Risk 83-Qua-890441:09 VITD 49.6 mg/mL (Normal) Comments: Vitamin D 25(OH) Status RangeDeficiency <20 ng/mL (50nmol/L)Insuffciency 20 - 30 ng/mL (50 - 75 nmol/L)Sufficiency 30 - 100 ng/mL (75 - 250 nmol/L)Toxicity >100 ng/mL (>250 nmol/L) 09-Zxs-509083:14 CMP GAP 5 (Normal) Range: 5-15 CO2 [...] 7-18 GLU 90 mg/dL (Normal) Range: 70-110 73-Opb-643380:14 LIPID VLDL 36 mg/dL (Normal) Range: 5-40 [...] CHOL 257 mg/dL (Abnormal) Comments: <200 mg/dL Rxohoiijh267-323 mg/dL Borderline>240 mg/dL High Risk :14 TSH 2.38 {uIU/mL} (Normal) Range: 0.358-3.74 31-Xlj-848122:14 VITD 25.6 mg/mL (Normal) Comments: Vitamin D 25(OH) Status RangeDeficiency <20 ng/mL (50nmol/L)Insuffciency 20 - 30 ng/mL (50 - 75 nmol/L)Sufficiency 30 - 100 ng/mL (75 - 250 nmol/L)Toxicity >100 ng/mL (>250 nmol/L) 65-Aql-833512:56 Urinalysis, Office (11809) UA - BILIRUBIN Negative (Normal) UA - [...] CHOL 257 mg/dL (Abnormal) Comments: <200 mg/dL Yidjzpceo081-910 mg/dL Borderline>240 mg/dL High Risk :57 TSH 3.02 {uIU/mL} (Normal) Range: 0.358-3.74 :51 LIPID PANEL (24071) Comments: PATIENT WAS FASTINGPERFORMED BY: Triposolin6370 [facility] [id number] LDL/HDL Ratio 2.9 {ratio_units} (Normal) Range: 0.0-3.2 [...] METABOLIC PANEL, Comments: PATIENT WAS FASTINGPERFORMED BY: [employer] Hsjxdx3252 [facility] [id number] Information: [id number] COMPREHENSIVE (63380) ALT (SGPT) 11 [iU]/L (Normal) Range: 0-32 [...] Glucose, Serum 85 mg/dL (Normal) Range: 65-99 99-Jmz-147076:13 HIP, MIN 2 VIEWS Radiology Report See [...] Reynoso M.D.December 03, 2011 at 12:32:11 PM [id number] Signed GP/GP If you are the referring physician and would like to consult with theradiologist who provided this interpretation, please contact Aishwarya Rendon at [phone]. If this radiologist is unavailable, youwill be directed to another radiologist t o assist. If you are a patient with a question regarding this report, pleasecontactyour referring physician directly. Professional Interpretation Provided By: silkfred, Phone ,Fax These documents contain legally protected [...] 1240 Sign b y: Hi Reynoso MD 23-Ree-565944:13 HIP, MIN 2 VIEWS Radiology Report See [...] Nguyen M.D.December 03, 2011 at 12:33:05 PM [id number] Signed GP/GP If you are the referring physician and would like to consult with theradiologist who provided this interpre tation, please contact Aishwarya Rendon at [phone]. If this radiologist is unavailable, youwill be directed to another radiologist to assist. If you are a patient with a question regarding t his report, pleasecontactyour referring physician directly. Professional Interpretation Provided By: silkfred, Phone , These documents contain legally protected [...] Dicta cristiane on 12/02/11 1711 by Shiva SALAZAR,DougrieleTranscribed on 12/03/119 by ITS IMPORTSign by Shiva SALAZAR,Hi on 12/03/111919 Sign by: Hi Reynoso MD 54-Qub-98926:48 METABOLIC PANEL, Comments: PATIENT WAS FASTINGPERFORMED BY: [facility] [id number] [facility] [id number] Information: [id number] COMPREHENSIVE (01593) ALT (SGPT) 10 [iU]/L (Normal) Range: 0-32 [...] 80 mg/dL (Normal) Range: 65-99 :48 TSH (63589) Comments: PATIENT WAS FASTINGPERFORMED BY: [facility]CoH[facility] CenterAddpbu2251 [facility] [id number] TSH 2.860 {uIU/mL} (Normal) Range: 0.450-4.500 :48 LIPID PANEL (08732) Comments: PATIENT WAS FASTINGPERFORMED BY: [facility]CoHunterdon [facility] CenterRiyhau2316 [facility] [id number] LDL/HDL Ratio 2.7 {ratio_units} (Normal) Range: 0.0-3.2 LDL Cholesterol Calc 161 mg/dL (Abnormal) Range: 0-99 VLDL Cholesterol Jorge 35 mg/dL (Normal) Range: 5-40 HDL Cholesterol 60 mg/dL (Normal) Comments: According to ATP-III Guidelines, HDL-C >59 mg/dL is considered anegative risk factor for CHD. Triglycerides 174 mg/dL (Abnormal) Range: 0-149 Cholesterol, Total 256 mg/dL (Abnormal) Range: 100-199 :08 [facility] Culture exhibits no growth. (Normal) :08 [...] 10,000 ORGANISM 1: MIXED GRAM POSITIVE ORGANISMS 33-Rfv-449622:33 Urinalysis, Office (48288) UA - BILIRUBIN Negative (Normal) UA - [...] 7-18 GLU 82 mg/dL (Normal) Range: 70-110 9-Teh-608604:59 COMPLETE UA MUCUS, URINE 0 SEEN {/hpf} [...] NEGATIVE CLARITY CLEAR (Normal) COLOR YELLOW (Normal) 3-Hut-451451:59 LIPID VLDL 39 mg/dL (Normal) Range: 5-40 [...] ORGANISM 1: MIXED GRAM POSITIVE ORGANISMS (Normal) 52-Amj-066157:37 TSH 0.02 {uIU/mL} (Abnormal) Range: 0.358-3.74 62-Dcz-554365:01 CULTURE, URINE URINE CULTURE See Note (Normal) Comments: Culture exhibits no growth. 62-Pkk-420622:40 L/S SPINE,MIN 4 VIEWS (MT) Radiology Report See Note (Normal) Comments: Exam Number: [id number] LUMBOSACRAL SPINE AP, lateral and oblique views [...] abnormality is seen. Reported By: HI REYNOSO 98-Upa-187677:14 Urinalysis, Office (68969) UA - LEUKOCYTE ESTERASE Small (Normal) UA - NITRITE Negative (Normal) URINE UROBILINGN FILOMENA TIMED Normal mg/dL (Normal) UA - PROTEIN Negative mg/dL (Normal) UA - PH 7.0 (Normal) UA - BLOOD Non Hemolyzed Trace (Normal) UA - SPECIFIC GRAVITY 1.010 (Normal) UA - KETONES Negative mg/dL (Normal) UA - BILIRUBIN Negative (Normal) UA - GLUCOSE Negative (Normal) 62-Mkn-04559:55 COMP METABOLIC CL 100 mmol/L (Normal) Range: [...] CHOL 202 mg/dL (Abnormal) Comments: <200 mg/dL Bdkthkrtf832-665 mg/dL Borderline>240 mg/dL High Risk TRIG 183 mg/dL (Normal) Comments: Serum Triglycerides Reference IntervalNormal <150 mg/dLBorderline high 150 - 199 mg/dLHigh 200 - 499 mg/ dLVery High > or = 500 mg/dL :55 TSH 0.03 {uIU/mL} (Abnormal) Range: 0.358-3.74 43-Quk-282133:14 CBCD,SMEAR DIFF BAND 3 % (Normal) Range: [...] 4.2-5.4 WBC 4.0 K/mm3 (Abnormal) Range: 4.4-11.0 22-Vai-939831:14 COMP METABOLIC ALK P 58 U/L (Normal) [...] 6.4-8.2 GLU 88 mg/dL (Normal) Range: 70-110 21-Yre-648400:14 MICROSO AB 6676 281 {IU/mL} (Abnormal) Range: 0-34 Comments: Performed At: [address], [place] [id number] 86-Njh-103870:14 T4 FREE DIRECT 0.7 ng/dL (Abnormal) Range: [...] Report See Note (Normal) Comments: Exam Number: [id number] FIVE VIEW LUMBAR SPINE AP, lateral, both [...] If the patient persistsat being symptomatic, MR graf can is suggested to evaluate possible nerveroot [...] degenerative changes. Reported By: CATHIE SALCEDO M.D. 7-Oey-694917:30 L/S SPINE,MIN 4 VIEWS Radiology Report See Note (Normal) Comments: Exam Number: [id number] FIVE VIEW LUMBAR SPINE AP, lateral, both [...] If the patient persistsat being symptomatic, MR graf can is suggested to evaluate possible nerveroot [...] degenerative changes. Reported By: CATHIE SALCEDO M.D. 79-Odr-915899:24 CBCD,SMEAR DIFF BASOPHIL 1 % (Normal) Range: [...] 47-70 WBC 4.2 K/mm3 (Abnormal) Range: 4.4-11.0 19-Snr-901722:24 COMP METABOLIC A/G 1.3 {RATIO} (Normal) Range: [...] :24 TSH 4.71 {uIU/mL} (Normal) Range: 0.34-4.82 14-Yrz-349593:16 Urinalysis, Office (24920) UA - BLOOD Non Hemolyzed Trace (Normal) UA - GLUCOSE Negative (Normal) UA - LEUKOCYTE ESTERASE Trace (Normal) UA - NITRITE Negative (Normal) UA - PH 5.0 (Normal) UA - PROTEIN Negative mg/dL (Normal) UA - SPECIFIC GRAVITY 1.005 (Normal) URINE UROBILINGN FILOMENA TIMED Normal mg/dL (Normal) 51-Grt-052754:15 COMPLETE UA BACTERIA RARE {/hpf} (Normal) BILIRUBIN [...] (Normal) Range: 0-5 Comments: Result: 0-5 SEEN 89-Pot-280990:15 CULTURE, URINE URINE CULTURE See Note {CFU/mL} [...] 11.6-14.6 WBC 5.3 K/mm3 (Normal) Range: 4.4-11.0 31-Uzr-853380:18 Urinalysis, Office (04245) UA - BILIRUBIN Negative (Normal) UA - BLOOD Non Hemolyzed Trace (Normal) UA - GLUCOSE Negative (Normal) UA - KETONES Negative mg/dL (Normal) UA - LEUKOCYTE ESTERASE Negative (Normal) UA - NITRITE Negative (Normal) UA - PH 5.0 (Normal) UA - PROTEIN Negative mg/dL (Normal) UA - SPECIFIC GRAVITY 1.025 (Normal) URINE UROBILINGN FILOMENA TIMED Normal mg/dL (Normal) 15-Ysz-546310:02 Urinalysis, Office (49409) UA - BILIRUBIN Negative (Normal) UA - BLOOD Non Hemolyzed Trace (Normal) UA - GLUCOSE Negative (Normal) UA - KETONES Negative mg/dL (Normal) UA - LEUKOCYTE ESTERASE Negative (Normal) UA - NITRITE Negative (Normal) UA - PH 5.0 (Normal) UA - PROTEIN Negative mg/dL (Normal) UA - SPECIFIC GRAVITY 1.010 (Normal) URINE UROBILINGN FILOMENA TIMED 2 mg/dL (Normal) 66-Mdc-793980:46 Urinalysis, Office (67812) UA - BILIRUBIN Negative (Normal) UA - BLOOD Hemolyzed Large (Normal) UA - KETONES Negative mg/dL (Normal) UA - LEUKOCYTE ESTERASE Negative (Normal) UA - NITRITE Negative (Normal) UA - PH 5.0 (Normal) UA - PROTEIN Negative mg/dL (Normal) UA - SPECIFIC GRAVITY 1.015 (Normal) URINE UROBILINGN FILOMENA TIMED Normal mg/dL (Normal) 28-Lpv-40330:00 CULTURE, URINE Comments: The date and/or time [...] $$$ >=256 R TRIMETHOPRIM/SULFAMETHOXAZ $$ <=10 S 8-Wgk-969722:05 CBCD,SMEAR DIFF BAND 1 % (Normal) Range: [...] 47-70 WBC 4.5 K/mm3 (Normal) Range: 4.4-11.0 7-Nds-805772:05 LIVER ALB 3.5 g/dL (Normal) Range: 3.4-5.0 [...] mg/dL VLDL 9 mg/dL (Normal) Range: 5-40 3-Oin-891941:05 ROUTINE UA BILIRUBIN URINE SeeNote (Normal) Comments: [...] Current Prescription(s) Indication: Hypertension Planned Observations TSH (39327)Indication: Abnormal TSH On: 58-Oyo-370870:44 Request T4, FREE (THYROXINE) (64437)Indication: Abnormal TSH On: 12-Cph-018121:44 Request T3, FREE (TRIDOTHYRONINE) (46795)Indication: Abnormal TSH On: 11-Thd-142964:44 Request TSH (THYROID STIMULATING HORMONE) (71036)Indication: Acquired hypothyroidism On: 19-Swj-151313:45 Request OCCULT BLOOD FECES SCREEN (42676)Indication: Diarrhea, unspecified type On: 3-Rva-626863:04 Request Lipid Panel (22222)Indication: Mixed hyperlipidemia On: 09-Ayx-973990:47 Request Comments: september 2016 HEPATIC FUNCTION PANEL (76037)Indication: Mixed hyperlipidemia On: 06-Wrc-319122:12 Request TSH (06458)Indication: Acquired hypothyroidism On: 42-Inh-983123:08 Request TSH (THYROID STIMULATING HORMONE) (63935)Indication: Acquired hypothyroidism On: 22-Pwk-624143:25 Request Vitamin D Hydroxy (96002)Indication: VITAMIN D DEFICIENCY (Renamed from Avitaminosis D) On: 99-Jvs-609721:23 Request METABOLIC PANEL, COMPREHENSIVE (92588)Indication: Hypertension On: 81-Jei-971048:23 Request LIPID PANEL (99357)Indication: Mixed hyperlipidemia On: 83-Gnw-063925:23 Request Metabolic Panel, Comprehensive (15640)Indication: Hypertension On: :01 Request Lipid Panel (27560)Indication: Mixed hyperlipidemia On: 62-Tts-735224:01 Request TSH (04340)Indication: Acquired hypothyroidism On: 36-Wpq-534318:01 Request CALCIFEDIOL (58967)Indication: Acquired hypothyroidism On: 89-Xxy-634432:01 Request METABOLIC PANEL, COMPREHENSIVE (63714)Indication: Hypertension On: 71-Wrt-573814:32 Request TSH (98844)Indication: Acquired hypothyroidism On: 30-Xyv-812868:31 Request LIPID PANEL (61696)Indication: Mixed hyperlipidemia On: 51-Ezx-712922:31 Request HEPATIC FUNCTION PANEL (57580)Indication: Mixed hyperlipidemia On: 92-Xvd-831004:09 Request LIPID PANEL (28068)Indication: Mixed hyperlipidemia On: 02-Ria-097945:09 Request URINE ANN CULTURE-FILOMENA COL COUNT (87297)Indication: Low back pain On: 70-Grz-176336:33 Request CBC WITH MANUAL DIFF (81513)Indication: Hypertension On: 20-Pxg-026919:06 Request METABOLIC PANEL, COMPREHENSIVE (32136)Indication: Hypertension On: 41-Prk-480904:06 Request TSH (65333)Indication: Acquired hypothyroidism On: 98-Iue-193551:06 Request LIPID PANEL (73915)Indication: Mixed hyperlipidemia On: 06-Yms-706320:06 Request URINALYSIS, W/ MICRO (86508)Indication: Hypertension On: 41-Bjt-352037:12 Request TSH (24654)Indication: Acquired hypothyroidism On: 45-Poq-850010:12 Request METABOLIC PANEL, COMPREHENSIVE (90568)Indication: Hypertension On: 75-Zei-317057:12 Request LIPID PANEL (10615)Indication: Mixed hyperlipidemia On: 04-Ivz-189776:12 Request HEPATIC FUNCTION PANEL (91186)Indication: Mixed hyperlipidemia On: 9-Ofw-363351:03 Request LIPID PANEL (42542)Indication: Mixed hyperlipidemia On: 4-Aye-327560:03 Request LIPID PANEL (18827)Indication: Mixed hyperlipidemia On: 8-Yks-462977:50 Request TSH (18703)Indication: Acquired hypothyroidism On: 2-Epx-096993:49 Request METABOLIC PANEL, COMPREHENSIVE (74026)Indication: Hypertension, benign On: 2-Bpl-349831:49 Request URINE ANN CULTURE (FILOMENA COL COUNT) (21443)Indication: Pain in unspecified hip On: 26-Zoe-189961:16 Request TSH (75542)Indication: Acquired hypothyroidism On: 17-Mlm-267546:51 Request METABOLIC PANEL, COMPREHENSIVE (44724)Indication: Hypertension, benign On: 7-Sze-958107:58 Request HEPATIC FUNCTION PANEL (18838)Indication: Mixed hyperlipidemia On: 2-Ohc-515598:58 Request LIPID PANEL (69485)Indication: Mixed hyperlipidemia On: 9-Yza-266928:58 Request TSH (48338)Indication: Acquired hypothyroidism On: 2-Rxv-408510:54 Request HEPATIC FUNCTION PANEL (96148)Indication: Mixed hyperlipidemia On: :40 Request LIPID PANEL (21809)Indication: Mixed hyperlipidemia On: 53-Fhi-187524:40 Request Anti-TPO Antibody (73479)Indication: Abnormal TSH On: :31 Request T4, TOTAL (07575)Indication: Abnormal TSH On: :30 Request T4, FREE (85598)Indication: Abnormal TSH On: :30 Request TSH ([id number])Indication: Abnormal TSH On: 97-Ypa-800527:30 Request CBC WITH MANUAL DIFF (41637)Indication: Hypertension, benign On: 44-Dbc-627220:29 Request METABOLIC PANEL, COMPREHENSIVE (55269)Indication: Hypertension, benign On: 73-Qww-637081:28 Request Lipase (21242)Indication: Nausea On: :02 Request Amylase (83298)Indication: Nausea On: 3-Hun-344713:02 Request URINALYSIS W/O MICRO (52634)Indication: Dizziness and giddiness On: :58 Request TSH (02700)Indication: Dizziness and giddiness On: 9-Slb-487758:58 Request METABOLIC PANEL, COMPREHENSIVE (63540)Indication: Dizziness and giddiness On: 5-Rnv-657143:57 Request CBC WITH MANUAL DIFF (67829)Indication: Dizziness and giddiness On: 3-Lox-858772:57 Request HEPATIC FUNCTION PANEL ([id number])Indication: Mixed hyperlipidemia On: 3-Exv-471316:59 Request LIPID PANEL (78591)Indication: Mixed hyperlipidemia On: 4-Vcs-713354:59 Request URINALYSIS W/O MICRO (98961)Indication: Hypertension, benign On: 7-Npl-873091:05 Request TSH (31141)Indication: Hypertension, benign On: 8-Vzd-866433:05 Request CBC WITH MANUAL DIFF ([id number])Indication: Hypertension, benign On: 8-Zyl-997836:05 Request METABOLIC PANEL, COMPREHENSIVE ([id number])Indication: Hypertension, benign On: 3-Vre-687972:05 Request LIPID PANEL (98394)Indication: Mixed hyperlipidemia On: 6-Shx-501419:04 Request HEPATIC FUNCTION PANEL (55042)Indication: Mixed hyperlipidemia On: 7-Drj-503784:04 Request URINE ANN CULTURE-IDENTIFICATN (58618)Indication: Hematuria On: :57 Request URINALYSIS (93046)Indication: Hematuria On: :57 Request URINE ANN CULTURE-IDENTIFICATN (68035)Indication: Hematuria On: 03-Ank-069933:56 Request Comments: if neg- ct of abdomen and pelvis URINALYSIS (73211)Indication: Hypertension On: 14-Irf-774154:04 Request TSH ([id number])Indication: Hypertension On: 53-Cnl-669133:03 Request CBC WITH MANUAL DIFF (47045)Indication: Hypertension On: 96-Njs-020667:03 Request METABOLIC PANEL, COMPREHENSIVE (18517)Indication: Hypertension On: :03 Request LIPID PANEL (11351)Indication: Mixed hyperlipidemia On: 55-Wbn-212261:03 Request Planned Procedures CHEST XRAY, PA & LATERAL (08768)By: On: 10-Nov-2017 Intent Louise Darby Spirometry (59064)By: Wilner On: 10-Nov-2017 Intent Louise Comments: Normal X-RAY RIGHT WRIST, 3+ VIEWS On: 01-Sep-2017 Intent (55814)By: Lilliana Mishra DO, DO, Kathleen Radiology - Wrist - LeftBy: Tad On: 01-Sep-2017 Intent Lilliana RIOS DO, Kathleen X-RAY OF COCCYX, TWO VIEWS On: 01-Sep-2017 Intent (33193)By: Lilliana Misrha DO, DO, Kathleen PNEUM VAC ADLT/IMUMNOSPR, SBC/INTRM On: 29-Apr-2017 Intent (49234)By: Lilliana Mishra DO Comments: pneumovax prefilled syringe injectionlot: [id number]: 07/05/2018L DELT IMpt tolerated wellAD MACO Tad RIOSLilliana Flu Vaccine (Quadrivalent) 11001Bk: On: 29-Jan-2017 Intent Tad RIOS Lillianajanell Mishra DO, Comments: lot: [id number]: 09/01/17ite/route: L david, IMamt: 0.5mlVIS and ABN signed when applicableALISHA Crow ORTHOSTATIC BLOOD PRESSURE On: 22-Aug-2016 Intent ASSESSMENT (56366)By: Wilner, Comments: Jose Antonio Gil ULTRASOUND AORTA (34772)By: Tad On: 18-Jul-2016 Intent Lilliana RIOS TadLilliana chan DO EMGBy: Amy Coppola CNP On: 18-Oct-2014 Intent Nerve ConductionBy: Amy Coppola CNP On: 18-Oct-2014 Intent E Radiology - Wrist - RightBy: Ciesa On: 18-Oct-2014 Intent Amy MAGAÑA FLU VAC, SPLIT, >3 YEARS, INTRAMUSC On: 12-Jan-2013 Intent (93743)By: Yoselin Evans Comments: Lot:[id number]:Dose:0.5mLRoute:IMSite:L DltdGiven By:YOUNG signed IMMUNIZ ADMNIN, 1 VAC, SNGL/COMBO On: 12-Jan-2013 Intent (98293)By: Yoselin Evans Eprescribed prescriptions On: 04-Jan-2013 Intent (G8553)By: Mignon Irving EKG (89667)By: Mercedez Tapia On: 06-Apr-2012 Intent Comments: ekg showed normal sinus rhythym, normal axis, no acute st/t wave changes Eprescribed prescriptions On: 06-Apr-2012 Intent (G8553)By: Mercedez Tapia Eprescribed prescriptions On: 17-Feb-2012 Intent (G8553)By: Louise Hahn LPN FLU VAC, SPLIT, >3 YEARS, INTRAMUSC On: 02-Dec-2011 Intent (09170)By: Mercedez Tapia Comments: Lot #[id number]-9/30/13Site-left deltoidgiven by: Theresa Lozano LPN Radiology - Hip - BilateralBy: Fast On: 02-Dec-2011 Intent DO, Mayra A IMMUNIZ ADMNIN, 1 VAC, SNGL/COMBO On: 02-Dec-2011 Intent (98988)By: Mercedez Tapia ZOST[place] VACC, [place] (12787)By: Regina, On: 08-Aug-2011 Intent Mercedez Eprescribed prescriptions On: 29-Jul-2011 Intent (G8553)By: Beto RIOS Mayra A EKG (96637)By: Mercedez Tapia On: 01-Apr-2011 Intent Comments: ekg showed normal sinus rhythym, normal axis, no acute st/t wave changes FLU VAC, SPLIT, >3 YEARS, INTRAMUSC On: 01-Apr-2011 Intent (57162)By: Mercedez Tapia Comments: work TDAP VACCINE >7 IM (18142)By: Mast On: 31-Jul-2010 Intent Loly COYLE Comments: Lot #:[id number] date: 05/27Amount given: 0.5 mlRoute: IMSite given: left deltoidGiven by: Son Marrero RN FLU VAC, SPLIT, >3 YEARS, INTRAMUSC On: 20-Feb-2010 Intent (72704)By: Mercedez Tapia IMMUNIZ ADMNIN, 1 VAC, SNGL/COMBO On: 20-Feb-2010 Intent (63273)By: Mercedez Tapia Comments: Lot #[id number]/Site-L armDose0.5mlgiven by: Radiology - Lumbar SpineBy: Fast On: 25-Jul-2009 Intent DO, Mayra A EKG (47078)By: Mercedez Tapia On: 13-Feb-2009 Intent Comments: ekg showed normal sinus rhythym, normal axis, no acute st/t wave changes Radiology - Hip - RightBy: Fast DO, On: 23-Jun-2007 Intent Mayra A Radiology - Lumbar SpineBy: Fast On: 23-Jun-2007 Intent DO, Mayra A FLU VAC, SPLIT, >3 YEARS, INTRAMUSC On: 03-Feb-2007 Intent (72351)By: Catia Clement Comments: Lot #[id number] Exp-09/14/07Site-left deltoid Dose0.5ccgiven by Paul Clement 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
--- OUTSIDE RECORDS SUMMARY | 2018-06-05 22:12 | XMS RPT_ITS ---
:1950 Author Organization OH[facility] Care Team Providers Name Role Phone Lilliana Mishra Attending Unavailable Tad, Lilliana Referring Unavailable Tad, Lilliana Primary Care Unavailable Tad Lilliana Attending Unavailable Tad Lilliana Referring Unavailable Tad, Lilliana Primary Care Unavailable Louise Darby METAL CLEANER-C Attending Unavailable Louise Darby METAL CLEANER-C Referring Unavailable Tad, Lilliana Primary Care Unavailable Tad DO, Lilliana Attending Unavailable Tad DO, Lilliana Referring Unavailable Tad DO, Lilliana Consulting Unavailable JERRELL STEINER Attending Unavailable JERRELL STEINER Referring Unavailable TYREE JERRELL BLOCK Attending Unavailable JERRELL STEINER Referring Unavailable JERRELL STEINER Attending Unavailable JERRELL STEINER Referring Unavailable SANDRA JUAREZ (METAL CLEANER) Attending Unavailable JERRELL STEINER Attending Unavailable TYREE JERRELL BLOCK Referring Unavailable TYREE JERRELL BLOCK Attending Unavailable TYREE JERRELL BLOCK Referring Unavailable JERRELL ARTIS (CNM) Referring Unavailable LES SANTANA (CNM) Attending Unavailable JERRELL STEINER Attending Unavailable TYREE JERRELL BLOCK Referring Unavailable TYREE JERRELL BLOCK Attending Unavailable JERRELL STEINER Referring Unavailable JERRELL STEINER Attending Unavailable JERRELL STEINER Referring Unavailable TYREE JERRELL BLOCK Attending Unavailable JERRELL STEINER Referring Unavailable Purpose Purpose PROBLEMS PROBLEMS DATE TYPE CONDITION / CODE ATTENDING STATUS SOURCE 04/01/2018 Unknown R07.89 - Other Tad, Active [facility]anna chest pain / [facility] R07.89(ICD-10) Hospital Repository 11/10/2017 Unknown R05 - Cough / Louise Darby Active Janna R05(ICD-10) METAL CLEANER-C [facility] Repository 11/10/2017 Active Encounter for NA Active [facility] screening Main [place] mammogram for Repository malignant neoplasm of breast / Z12.31(ICD-10) 09/01/2017 Unknown S39.92XA - Tad, Active [place] [facility] injury of lower Hospital back, initial Repository encounter / S39.92XA(ICD-10) 09/01/2017 Unknown M25.539 - Pain in Tad, Active [place]anna unspecified wrist [facility] / M25.539(ICD-10) Hospital Repository PROCEDURES PROCEDURES No Procedure Records FoundVITAL SIGNS VITAL SIGNS No Vital Signs Records FoundRESULTS RESULTS ECHOCARDIOGRAM COMPLETE Observed: 04/01/2018 Status: F Source: [place] 3:17 PM [facility] REPOSITORY [facility] Cardiovascular Services [address] [place] [address] Echo Complete 04/01/18 0859 MR#: [id number] Acct: [id number] Name: PAMELA GUTIERREZ Rep #: [id number] : 1950 67 From: Jus Johnson MD Attending Dr: Lilliana Mishra DO Status: REG CLI Ordering Dr: Lilliana Mishra DO Date: 04/01/18 Location: [facility] Sex: F C Admitted: Reason For Study: chest pain Procedure This was a 2D Doppler, Color Flow transthoracic echocardiogram. Exam performed in department. Left Ventricle Normal size and thickness. Stage 2 diastolic dysfunction. The estimated ejection fraction is 55-60 %. No regional wall motion abnormalities noted. Right Ventricle Normal size and thickness. Normal systolic function. Atria The left atrium is mildly enlarged. Normal right atrium. Normal atrial septum. Mitral Valve The mitral valve is structurally normal. No prolapse or stenosis seen. Trivial mitral valve insufficiency. Tricuspid Valve Normal tricuspid valve. Trivial tricuspid valve insufficiency. Right ventricular systolic pressure estimated to be 26 mmHg. Aortic Valve Trisinus/trileaflet aortic valve. Normal aortic valve. Pulmonic Valve Normal pulmonic valve. Great Vessels Normal aortic root. Normal arch. Normal inferior vena cava. Inferior vena cava collapse with sniff. Pericardium/Pleural No pericardial effusion. MMode/2D Measurements AND Calculations LVIDd: 4.6 cm IVSd: 1.1 cm Ao [...] galen: 89.5 cm/sec E/E' lat: 13.2 E/E' med: 13.7 MV E/A: 1.1 Ao V2 max: 121.7 cm/sec LV V1 max: 103.6 cm/sec PA V2 max: 86.9 cm/sec Ao max P.9 mmHg LV V1 max P.3 mmHg TR max galen: 226.9 cm/sec TR max P.6 mmHg Interpretation Summary Stage 2 diastolic dysfunction. The estimated ejection fraction is 55-60 %. The left atrium is mildly enlarged. Trivial mitral valve insufficiency. Trivial tricuspid valve insufficiency. Right ventricular systolic pressure estimated to be 26 mmHg. There is no comparison study available. Ordering Physician: Lilliana Mishra Referring Physician: Lilliana Mishra Performed By: Kathrin Pitts, MARCELA, RVT 04/01/18 1517 Date Jus Johnson MD CC: Lilliana Mishra DO Date Dictated: 04/01/18 0859 Date Transcribed: 04/01/18 1517 Senior Technologist: Signed STRESS REPORT Observed: 04/01/2018 Status: F Source: [place] 12:45 PM [facility] REPOSITORY [facility] Cardiovascular Services [address] [place] [address] MR#: [id number] Acct: [id number] Name: PAMELA GUTIERREZ Rep #: [id number] : 1950 67 From: Calvin Doty MD Primary Care: Tad Lilliana Status: REG CLI Ordering Dr: Sex: F C Stress Test Report Pharmacologic myocardial perfusion stress test. 67-year-old lady with a history of atypical chest pain. Medications: Crestor, lisinopril, rosuvastatin, Lexapro. Stress protocol: Resting EKG demonstrates normal sinus rhythm with a rate of 63 bpm normal intervals are noted resting blood pressure 122/82 mmHg. 0.4 mg of regadenoson was infused per usual protocol followed by rapid intravenous saline flush injection continuous EKG monitoring was performed. The maximum heart rate attained was 86 bpm which was 56% of maximum corrected heart rate the maximum workload was 1 metabolic equivalent. At rest there were no ST or T wave changes noted suggest abnormal flow reserve at peak infusion no ST or T wave changes were noted suggest abnormal flow reserve. The resting blood pressure was 122/82 final blood pressure was 126/90 mmHg. Myocardial perfusion protocol. 11.8 mCi of technetium 99m sestamibi was injected at rest. 0.4 mg of regadenoson was infused per usual protocol peak infusion 34.3 mCi of technetium 99m sestamibi was injected stress images were obtained stress and rest images were reconstructed and compared in the short axis vertical long horizontal long axis. Gated images were also obtained Perfusion SPECT analysis: Review of the stress images demonstrate normal uptake of tracer noted in all areas of the myocardium. The resting images similarly demonstrate normal uptake of tracer noted in all areas of the myocardium. No areas of reversibility are noted suggest ischemia no previous infarct is noted. Gated SPECT analysis: The gated ejection fraction is noted to be 68%. Conclusion: Normal pharmacologic myocardial perfusion stress test. Preserved ejection fraction. 04/01/18 1245 <Electronically signed by Calvin Doty MD> Date Calvin Doty MD CC: Lilliana Mishra DO Date Dictated: 04/01/18 1239 Date Transcribed: 04/01/18 1239 Senior Technologist: [place] Signed LIVER Observed: 04/01/2018 Status: F Source: [place] 8:19 AM [facility] REPOSITORY [facility] Imaging Services [address] [place] [address] Liver MR#: [id number] Acct: [id number] Name: PAMELA GUTIERREZ Rep #: [id number] : 1950 F 67 From: Vernon Chavez DO PCP: Lilliana Mishra DO Status: REG CLI Study: Liver Date of Exam: 04/01/18 Exam# [id number] Ordering Dr: Lilliana Mishra DO STUDY: ABDOMINAL ULTRASOUND - RIGHT UPPER QUADRANT REASON FOR VISIT: Female, 67 years old. Mid chest pain for 2 weeks. TECHNIQUE: Ultrasound evaluation of the right upper quadrant was performed with real-time and static dubose-scale imaging. TECHNICAL QUALITY: Adequate. COMPARISON: None. FINDINGS: Liver: The liver measures 16.5 cm. There is increased echogenicity consistent with fatty infiltration. The bile ducts are within normal limits. There is hepatic color flow. The direction of portal flow is hepatopetal. There is no demonstrated mass lesion. Gallbladder: Normal distended gallbladder. The gallbladder wall measures 2.8 mm. There is a negative sonographic Noriega's sign. There is no pericholecystic fluid. There are no gallstones. Common Bile Duct (C.B.D.): The common bile duct measures 4.3 mm. Pancreas: Normal size of the head, body and tail of the pancreas. There is normal echogenicity of the pancreas. There is no demonstrated pancreatic mass or cyst. Right Kidney: Normal size of the right kidney. The right kidney measures 10.8 cm. Normal renal cortex. The right cortex measures 1.7 cm. There is a 1.2 x 1.3 x 1.0 cm simple cortical cyst in the mid kidney. There is no right hydronephrosis. US/Liver IMPRESSION: 1. Fatty infiltration of the liver without mass. 2. No evidence of gallbladder or biliary ductal abnormality. 3. Right renal cyst. Electronically Signed: Vernon Chavez DO at 23:40 EST Tel [phone], Service support , CC: Lilliana Mishra DO Senior Technologist: Signed CBC W/DIFF, AUTOMATED Collected: 04/01/2018 Status: F Source: [place] 6:32 AM [facility] REPOSITORY Order Comment: CPKMB FRACTION IS NOT AVAILABLE TYPE CODE TESTS RESULT OUT OF RANGE REFERENCE UNITS LAB L100.1000 4.4-11.0 K/mm3 Normal WBC 6.8 LAB L100.1200 4.2-5.4 M/mm3 Low RBC 3.98 LAB L100.1300 12.0-15.0 g/dl Normal HGB 13.3 LAB L100.1400 37-47 % Normal HCT 39.4 LAB L100.1500 81-99 fL Normal MCV 99.0 LAB L100.1600 27.0-32.0 pg High MCH 33.4 LAB L100.1700 32-36 g/gl Normal MCHC 33.8 LAB L100.1810 11.6-14.6 % Normal RDW CV 12.7 LAB L100.1820 35.1-43.9 fl High RDW SD 45.5 LAB L100.1900 150-450 K/mm3 Normal PLT 201 LAB L100.2000 6.2-12.0 fl Normal MPV 9.1 LAB L100.2100 47-70 % Normal NEUT% 56.0 LAB L100.2200 19-41 % Normal LY% 33.9 LAB L100.2300 0-10 % Normal MONO% 7.8 LAB L100.2400 0-5 % Normal EO% 1.6 LAB L100.2500 0-1 % Normal BASO% 0.4 LAB L100.2550 0.0-0.9 % Normal IM GRAN % 0.300 Result Comment: IG% - Immature Granulocytes (promyelocytes, myelocytes and metamyelocytes) > 1% indicates that a LEFT SHIFT is Present. LAB L100.2620 2.0-7.7 X10 3/uL Normal Absolute Neut 3.8 LAB L100.2720 0.83-4.51 X10 3/ul Normal Absolute Lymph 2.30 Performed By: #### L100.0100 #### [facility] [address], [address] COMPREHENSIVE METABOLIC Collected: 04/01/2018 Status: F Source: [place] 6:32 AM [facility] REPOSITORY Order Comment: CPKMB FRACTION IS NOT AVAILABLE 'TROP' Serial specimen #1, #2, #3, or #4: 1 TYPE CODE TESTS RESULT OUT OF RANGE REFERENCE UNITS LAB L501.0100 74-106 mg/dL Normal GLU 90 Result Comment: Please note revised GLUCOSE reference range effective 2017. LAB L501.1000 7-18 mg/dL Normal BUN 17 LAB L501.1100 0.55-1.02 mg/dL Normal CREAT,SERUM 0.73 Result Comment: The validity of the calculated GFR AND GFRAA in patients over 70 years has not been determined. Clinical correlation is essential. LAB L501.1110 >60 mL/min Normal EST GFR 84 Result Comment: Non- GFR Calc LAB L501.1115 >60 mL/min Normal EST GFR - AA 101 Result Comment: GFR Calc LAB L501.1300 10-20 RATIO High BUN/CRE 23.2 LAB L501.1500 6.4-8.2 g/dL T Normal PROT 6.8 LAB L501.1800 3.2-5.0 g/dL Normal ALB 3.5 LAB L501.1950 2.2-4.2 g/dL Normal GLOB 3.3 LAB L501.2000 0.9-2.4 RATIO Normal A/G 1.1 LAB L501.2200 8.5-10.1 mg/dL CA Normal 8.6 LAB L501.4100 15-37 U/L Low AST 12 LAB L501.4305 45-117 U/L Normal ALK P 89 LAB L501.4405 13-56 U/L Normal ALT 20 LAB L501.4600 0.20-1.00 mg/dL T Normal BILI 0.30 LAB L501.5300 136-145 mmol/L NA Normal 142 LAB L501.5600 3.5-5.1 mmol/L K Normal 3.6 LAB L501.5900 98-107 mmol/L CL Normal 105 LAB L501.6100 21.0-32.0 mmol/L Normal CO2 30.0 LAB L501.6200 5-15 Normal GAP 7 Performed By: #### L500.4050, L501.3620, L501.4010 #### [facility] [address] [place], [address] CPK TOTAL, CREATINE Collected: 04/01/2018 Status: F Source: [place] 6:32 AM [facility] REPOSITORY Order Comment: CPKMB FRACTION IS NOT AVAILABLE 'TROP' Serial specimen #1, #2, #3, or #4: 1 TYPE CODE TESTS RESULT OUT OF RANGE REFERENCE UNITS LAB L501.3620 26-192 U/L Normal CPK TOTAL 44 Performed By: #### L500.4050, L501.3620, L501.4010 #### [facility] [address] [place], [address] TROPONIN-I Collected: 04/01/2018 Status: F Source: [place] 6:32 AM [facility] REPOSITORY Order Comment: CPKMB FRACTION IS NOT AVAILABLE 'TROP' Serial specimen #1, #2, #3, or #4: 1 TYPE CODE TESTS RESULT OUT OF RANGE REFERENCE UNITS LAB L501.4010 <0.045 ng/mL Normal < 0.015 TROPONIN-I Result Comment: TROPONIN-I EXPECTED VALUES <0.045 Negative 0.045 - 0.590 Consistent with Cardiac Damage > OR = 0.600 Critical Value Not every elevated troponin is indicative of AZ. These values should be used with clinical judgement in examining the patient's clinical picture for diagnosis. To establish a diagnosis of AZ versus myocardial injury, there must be a demonstrated rise and/or fall in the troponin values, in addition to ischemic symptoms, EKG changes, new regional wall motion abnormality, and/or angiographical evidence. PLEASE NOTE: REFERENCE RANGES EDITED 17 Performed By: #### L500.4050, L501.3620, L501.4010 #### [facility] [address] [place], [address] PROGRESS Observed: 02/24/2018 Status: COMPLETED Source: [place] 3:23 PM [facility] REPOSITORY HNO ID: [id number] Author: Jerrell Block Service: (none) Author Type: Psychologist Type: Progress Notes Filed: 02/24/2018 3:25 PM Note Text: [facility] Progress Note Pamela Gutierrez 02/17/2018 [id number] Provider: Jerrell Garcia PSYD CPT Code: 04006 Psychotherapy 38-52 minutes Time: Approximately 45 minutes was spent in therapy. Parties Present: Patient Patient Presentation/Concerns: Pamela reported she gained 8lbs on her vacation. She stated being shocked by this and surprised. She continues to grieve the loss of her dog. Mental Status: Mood: sad Affect: mood-congruent Thoughts/Associations:goal directed Suicidal/Homicidal Ideation: None expressed or evidenced Other Observations: None Therapy Focus Mood/affect regulation MEDICATIONS: Per medical record: Current Outpatient Prescriptions: acyclovir (ZOVIRAX) 400 mg tablet Take 1 tablet by mouth once daily. ADVIL 200 MG TAB two or three pills as needed ASPIRIN 81 MG TAB buPROPion (WELLBUTRIN) 75 mg tablet Take 75 mg by mouth once daily. Unsure of dose CALCIUM CARB/VIT D3/MINERALS (CALCIUM PLUS ORAL) Take by mouth. cholecalciferol, Vitamin D3, 400 unit ORAL Tab Take 1 tablet by mouth once daily. CHROM JODY/BRINDAL SARABIA (GARCINIA CAMBOGIA ORAL) Take by mouth. COMPOUNDED PRESCRIPTION OTC CHolestoff DAILY MULTIVITAMIN TAB Take one(1) tablet daily. FOLIC ACID 1 MG TAB Take one(1) tablet daily. GLUC/CHND/OM3/DHA/EPA/FISH/STR (GLUCOSAMINE CHONDROITIN PLUS ORAL) Take by mouth. Glucosamine HCl 1,500 mg ORAL Tab Take by mouth once daily. levothyroxine sodium(SYNTHROID 25 MCG TAB) not sure of dosage LEXAPRO 5 MG TAB 1/2 tab once daily LICORICE ROOT ORAL Take by mouth. LISINOPRIL 2.5 MG TAB Take one(1) tablet daily. Vermillion-3 Fatty Acids-Vitamin E (FISH OIL) 1,000 mg cap Take 1 capsule by mouth once daily. pantoprazole 40 mg ORAL tablet Take 1 tablet by mouth daily before breakfast. Take on empty stomach, 1/2 hr before meal. rosuvastatin (CRESTOR) 10 mg tablet Take 10 mg by mouth once daily. TIMOLOL 0.5 % EYE GEL FORMING SOLN Take one(1) drop daily in both eyes No current facility-administered medications for this visit. Psychiatric Medication Issues: No change from previous appointment DIAGNOSIS: Binge Eating Disorder Treatment Modality/Interventions: Cognitive Behavioral TREATMENT ASSESSMENT/PROGRESS: Stable TREATMENT PLAN/GOALS: Continue in therapy focusing on affect management. Return to mindful eating skills. Lower her carbohydrate intake. Next appointment: 2 weeks Jerrell Garcia PSYD PROGRESS Observed: 01/28/2018 Status: COMPLETED Source: [place] 2:17 PM [facility] REPOSITORY HNO ID: [id number] Author: Jerrell Block Service: (none) Author Type: Psychologist Type: Progress Notes Filed: 02/13/2018 9:52 AM Note Text: [facility] Progress Note Pamela Gutierrez 01/28/2018 [id number] Provider: Jerrell Garcia PSYD CPT Code: 44246 Psychotherapy 38-52 minutes Time: Approximately 45 minutes was spent in therapy. Parties Present: Patient Patient Presentation/Concerns: Pamela indicated that her son's dog . This was another great loss to her. She is grieving the loss of her own dog, which also triggers thought of the loss of her grandfather. She leaves for [employer] on Fri. Discussed Vitamin C because her stress level has been high this month. She stated beginning to work on her comfort eating. Mental Status: Mood: neutral Affect: mood-congruent Thoughts/Associations:goal directed Suicidal/Homicidal Ideation: None expressed or evidenced Other Observations: None Therapy Focus Mood/affect regulation MEDICATIONS: Per medical record: Current Outpatient Prescriptions: buPROPion (WELLBUTRIN) 75 mg tablet Take 75 mg by mouth once daily. Unsure of dose rosuvastatin (CRESTOR) 10 mg tablet Take 10 mg by mouth once daily. acyclovir (ZOVIRAX) 400 mg tablet Take 1 tablet by mouth twice daily. (Patient taking differently: Take 400 mg by mouth once daily. ) COMPOUNDED PRESCRIPTION OTC CHolestoff CALCIUM CARB/VIT D3/MINERALS (CALCIUM PLUS ORAL) Take by mouth. GLUC/CHND/OM3/DHA/EPA/FISH/STR (GLUCOSAMINE CHONDROITIN PLUS ORAL) Take by mouth. LICORICE ROOT ORAL Take by mouth. CHROM JODY/BRINDAL SARABIA (GARCINIA CAMBOGIA ORAL) Take by mouth. Vermillion-3 Fatty Acids-Vitamin E (FISH OIL) 1,000 mg cap Take 1 capsule by mouth once daily. cholecalciferol, Vitamin D3, 400 unit ORAL Tab Take 1 tablet by mouth once daily. Glucosamine HCl 1,500 mg ORAL Tab Take by mouth once daily. pantoprazole 40 mg ORAL tablet Take 1 tablet by mouth daily before breakfast. Take on empty stomach, 1/2 hr before meal. levothyroxine sodium(SYNTHROID 25 MCG TAB) not sure of dosage TIMOLOL 0.5 % EYE GEL FORMING SOLN Take one(1) drop daily in both eyes ASPIRIN 81 MG TAB LISINOPRIL 2.5 MG TAB Take one(1) tablet daily. ADVIL 200 MG TAB two or three pills as needed DAILY MULTIVITAMIN TAB Take one(1) tablet daily. FOLIC ACID 1 MG TAB Take one(1) tablet daily. LEXAPRO 5 MG TAB 1/2 tab once daily No current facility-administered medications for this visit. Psychiatric Medication Issues: No change from previous appointment DIAGNOSIS: Binge Eating Treatment Modality/Interventions: Cognitive Behavioral TREATMENT ASSESSMENT/PROGRESS: Stable TREATMENT PLAN/GOALS: Continue in therapy focusing on affect management, CBT for binge eating Next appointment: 2 weeks Jerrell Garcia PSYD PROGRESS Observed: 01/20/2018 Status: COMPLETED Source: [place] 3:21 PM [facility] REPOSITORY O ID: [id number] Author: Jerrell Block Service: (none) Author Type: Psychologist Type: Progress Notes Filed: 01/20/2018 3:25 PM Note Text: [facility] Progress Note Pamela Gutierrez 01/14/2018 [id number] Provider: Jerrell Garcia PSYD CPT Code: 38230 Psychotherapy 38-52 minutes Time: Approximately 45 minutes was spent in therapy. Parties Present: Patient Patient Presentation/Concerns: Pamela continues to mourn the loss of her dog. She spoke extensively about her grief and the impact on her family. We discussed the nature of grief and coping. She states trying to distract with travel plans and projects. The grief has triggered extensive binge eating. Mental Status: Mood: sad Affect: mood-congruent Thoughts/Associations:goal directed Suicidal/Homicidal Ideation: None expressed or evidenced Other Observations: None Therapy Focus Mood/affect regulation MEDICATIONS: Per medical record: Current Outpatient Prescriptions: buPROPion (WELLBUTRIN) 75 mg tablet Take 75 mg by mouth once daily. Unsure of dose rosuvastatin (CRESTOR) 10 mg tablet Take 10 mg by mouth once daily. acyclovir (ZOVIRAX) 400 mg tablet Take 1 tablet by mouth twice daily. (Patient taking differently: Take 400 mg by mouth once daily. ) COMPOUNDED PRESCRIPTION OTC CHolestoff CALCIUM CARB/VIT D3/MINERALS (CALCIUM PLUS ORAL) Take by mouth. GLUC/CHND/OM3/DHA/EPA/FISH/STR (GLUCOSAMINE CHONDROITIN PLUS ORAL) Take by mouth. LICORICE ROOT ORAL Take by mouth. CHROM JODY/BRINDAL SARABIA (GARCINIA CAMBOGIA ORAL) Take by mouth. Vermillion-3 Fatty Acids-Vitamin E (FISH OIL) 1,000 mg cap Take 1 capsule by mouth once daily. cholecalciferol, Vitamin D3, 400 unit ORAL Tab Take 1 tablet by mouth once daily. Glucosamine HCl 1,500 mg ORAL Tab Take by mouth once daily. pantoprazole 40 mg ORAL tablet Take 1 tablet by mouth daily before breakfast. Take on empty stomach, 1/2 hr before meal. levothyroxine sodium(SYNTHROID 25 MCG TAB) not sure of dosage TIMOLOL 0.5 % EYE GEL FORMING SOLN Take one(1) drop daily in both eyes ASPIRIN 81 MG TAB LISINOPRIL 2.5 MG TAB Take one(1) tablet daily. ADVIL 200 MG TAB two or three pills as needed DAILY MULTIVITAMIN TAB Take one(1) tablet daily. FOLIC ACID 1 MG TAB Take one(1) tablet daily. LEXAPRO 5 MG TAB 1/2 tab once daily No current facility-administered medications for this visit. Psychiatric Medication Issues: No change from previous appointment DIAGNOSIS: Binge Eating Grief Treatment Modality/Interventions: Cognitive Behavioral TREATMENT ASSESSMENT/PROGRESS: Stable. Pamela reports an increase in binge eating. TREATMENT PLAN/GOALS: Continue in therapy focusing on affect management. Next appointment: 2 weeks Jerrell Garcia PSYD PROGRESS Observed: 12/25/2017 Status: COMPLETED Source: [place] 9:00 AM [facility] REPOSITORY O ID: [id number] Author: Jerrell Block Service: (none) Author Type: Psychologist Type: Progress Notes Filed: 12/29/2017 10:38 AM Note Text: [facility] Progress Note Pamela Cline Miko 12/24/2017 [id number] Provider: Jerrell Garcia PSYD CPT Code: 44056 Psychotherapy 38-52 minutes Time: Approximately 45 minutes was spent in therapy. Parties Present: Patient Patient Presentation/Concerns: Pamela experienced many stressful events on her trip to [facility] and was ill. When she returned, her beloved dog 2 weeks later. This was very distressing and she discussed her profound grief. She has plans to travel and to get another dog next year. Mental Status: Mood: neutral Affect: mood-congruent Thoughts/Associations:goal directed Suicidal/Homicidal Ideation: None expressed or evidenced Other Observations: None Therapy Focus Mood/affect regulation MEDICATIONS: Per medical record: Current Outpatient Prescriptions: buPROPion (WELLBUTRIN) 75 mg tablet Take 75 mg by mouth once daily. Unsure of dose rosuvastatin (CRESTOR) 10 mg tablet Take 10 mg by mouth once daily. acyclovir (ZOVIRAX) 400 mg tablet Take 1 tablet by mouth twice daily. (Patient taking differently: Take 400 mg by mouth once daily. ) COMPOUNDED PRESCRIPTION OTC CHolestoff CALCIUM CARB/VIT D3/MINERALS (CALCIUM PLUS ORAL) Take by mouth. GLUC/CHND/OM3/DHA/EPA/FISH/STR (GLUCOSAMINE CHONDROITIN PLUS ORAL) Take by mouth. LICORICE ROOT ORAL Take by mouth. CHROM JODY/BRINDAL SARABIA (GARCINIA CAMBOGIA ORAL) Take by mouth. Vermillion-3 Fatty Acids-Vitamin E (FISH OIL) 1,000 mg cap Take 1 capsule by mouth once daily. cholecalciferol, Vitamin D3, 400 unit ORAL Tab Take 1 tablet by mouth once daily. Glucosamine HCl 1,500 mg ORAL Tab Take by mouth once daily. pantoprazole 40 mg ORAL tablet Take 1 tablet by mouth daily before breakfast. Take on empty stomach, 1/2 hr before meal. levothyroxine sodium(SYNTHROID 25 MCG TAB) not sure of dosage TIMOLOL 0.5 % EYE GEL FORMING SOLN Take one(1) drop daily in both eyes ASPIRIN 81 MG TAB LISINOPRIL 2.5 MG TAB Take one(1) tablet daily. ADVIL 200 MG TAB two or three pills as needed DAILY MULTIVITAMIN TAB Take one(1) tablet daily. FOLIC ACID 1 MG TAB Take one(1) tablet daily. LEXAPRO 5 MG TAB 1/2 tab once daily No current facility-administered medications for this visit. Psychiatric Medication Issues: No change from previous appointment DIAGNOSIS: Binge Eating Disorder Treatment Modality/Interventions: Cognitive Behavioral TREATMENT ASSESSMENT/PROGRESS: Stable TREATMENT PLAN/GOALS: Continue in therapy focusing on stress management and affect management. Grief support. Next appointment: 2 weeks Jerrell Garcia PSYD CHEST PA AND LATERAL Observed: 11/10/2017 Status: F Source: JANNA 4:15 PM [facility] REPOSITORY [facility] Imaging Services [address] [place] [address] Chest PA and Lateral MR#: [id number] Acct: [id number] Name: PAMELA GUTIERREZ Rep #: [id number] : 1950 F 67 From: Dylan Amado MD PCP: Lilliana Mishra DO Status: REG CLI Study: Chest PA and Lateral Date of Exam: 11/10/17 Exam# [id number] Ordering Dr: Louise Darby STUDY: X-RAY CHEST REASON FOR EXAM: Female, 67 years old. Chronic cough for weeks since returning from [place]. TECHNIQUE: PA and lateral chest COMPARISON: None. FINDINGS: The lungs are clear and expanded. Normal cardiomediastinal silhouette, loren and pleural margins. No acute osseous or upper abdominal process. RAD/Chest PA and Lateral IMPRESSION: No acute cardiopulmonary process. Electronically Signed: Dylan Amado, at 17:07 EDT Tel , Service support , CC: [employer] CLEAN[employer] Louise Darby; Lilliana Mishra DO Senior Technologist: Signed PROGRESS Observed: 11/10/2017 Status: COMPLETED Source: [place] 3:16 PM [facility] REPOSITORY HNO ID: [id number] Author: Les Santana Service: (none) Author Type: Insulation Packer Type: Progress Notes Filed: 11/10/2017 4:17 PM Note Text: Pamela Gutierrez is a 67 year old who presents for her annual gynecologic exam without complaints. Patient just returned yesterday from mission in [facility]. 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 Postmenopausal: Yes HRT use: No. Last Pap: 2014 normal HPV: 2015 negative History of abnormal pap: No Last mammogram: 2018 normal History of abnormal mammogram: No Sexually active: Yes, very rarely as is 75 years old Pain with intercourse: No Postcoital bleeding: No Hot flashes: No Night sweats: No Vaginal dryness: No Mood swings: No Insomnia: No Exercise: 2-3 times a week for 60 minutes. Type: Walking Diet: Regular Seatbelt use: Yes Obstetric History T1 L1 SAB1 TAB0 Ectopic0 Multiple0 Live Births0 PAST MEDICAL HISTORY Diagnosis Date - Adjustment disorder with depressed mood - Cataract - Encounter for removal of skin lesion right facial cheek - benign - Essential hypertension, benign - Glaucoma - Hypothyroidism 2009 - PMH - PAST MEDICAL HISTORY OF 2005 STRESS FRACTURE - Snoring - Syncope PAST SURGICAL HISTORY Procedure Laterality Date - COLONOSCOP W/ OR W/O [facility] SPE[facility] 04/2009 Colonoscopy - COLONOSCOP W/ OR W/O [facility] SPE[facility] 12/15/15 Colonoscopy - PAST SURGICAL HISTORY OF 06-04-06 right brook bunionectomy and hammertoe repair - PAST SURGICAL HISTORY OF cataract surgery - REVISE SECONDARY VARICOSITY 02/2001 Varicose Vein Surgery, bilateral vein stripping FAMILY HISTORY Problem Relation Age of Onset - Cancer Father Pancreatic CA - Breast Cancer Father Nipple tumor on one side - Diabetes Mother - Hypertension Mother - Heart Mother - Stroke Mother - Thyroid Mother - Thyroid Maternal Grandmother SOCIAL HISTORY Social History Substance Use Topics - Smoking status: Never Smoker - Smokeless tobacco: Never Used - Alcohol use Yes Comment: Rarely REVIEW OF SYSTEMS HEENT: Cough and nasal congestion noted - patient reports likely d/t dust allergy from dirt getting kicked up in [facility]. Abdomen: No abdominal pain, nausea, vomiting, diarrhea, or constipation. No bloating, early satiety, indigestion, or increased flatulence. Bladder: No dysuria, gross hematuria, urinary frequency, urinary urgency, or incontinence Breast: No breast lumps, nipple d/c, overlying skin changes, redness or skin retraction Allergies and current medication updated:Yes EXAM: BP 122/78 Ht 5' 4.25 (1.63m) Wt 206 lb (93.4kg) BMI 35.08 kg/(m2). GENERAL: pleasant, female in no apparent distress HEENT: Normocephalic, atraumatic, mucus membranes moist and no lesions NECK: Supple, full range of motion, no adenopathy and thyroid normal DERMATOLOGY: Normal, without lesions, non-icteric and non-hirsute BREAST: soft, non-tender, symmetric, no dominant mass, normal nipple-areolar complex, no lymphadenopathy and no nipple discharge CHEST: Normal inspiratory effort ABDOMEN: soft, non-tender and no masses PELVIC: external genitalia normal, normal Bartholin's glands, urethra, Olivia's glands, no vulvar lesions, no cervical lesions, good vaginal support, physiologic discharge present, normal appearing perineal body and perianal region BIMANUAL: uterus normal size, shape and consistency, no adnexal masses and non-tender RECTOVAGINAL: rectovaginal exam negative for any masses or nodularity. NEURO: alert and oriented x3,exam grossly non-focal EXTREMITIES: normal ASSESSMENT/PLAN: 1) Health maintenance: Pap/HPV up to date. Mammogram up to date Nutrition, exercise and routine health maintenance exams reviewed. Calcium/Vitamin D supplementation information provided. Smoking cessation: Patient does not smoke. Colon cancer screening: up to date with screening TSH/lipids/glucose: followed by PCP Vitamin D: followed by PCP BMD: up to date 2) Follow up one year or sooner as needed Les Santana APRN.CNM CNOV Observed: 11/10/2017 Status: COMPLETED Source: [place] 2:45 PM [facility] REPOSITORY Office Visit (WOOB) PAMELA GUTIERREZ ([id number]) 1950 [facility] Date Time Provider Department 11/10/17 2:45 PM LES SANTANA (NELY) WOOB During your visit today, we recorded the following information about you: Blood pressure Weight Height 122/78 93.4 kg 1.632 m Les Santana APRN.CNM 11/10/2017 4:17 PM Signed Pamela Gutierrez is a 67 year old who presents for her annual gynecologic exam without complaints. Patient just returned yesterday from mission in [facility]. 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 Postmenopausal: Yes HRT use: No. Last Pap: 2014 normal HPV: 2014 negative History of abnormal pap: No Last mammogram: 2017 normal History of abnormal mammogram: No Sexually active: Yes, very rarely as is 75 years old Pain with intercourse: No Postcoital bleeding: No Hot flashes: No Night sweats: No Vaginal dryness: No Mood swings: No Insomnia: No Exercise: 2-3 times a week for 60 minutes. Type: Walking Diet: Regular Seatbelt use: Yes Obstetric History T1 L1 SAB1 TAB0 Ectopic0 Multiple0 Live Births0 PAST MEDICAL HISTORY Diagnosis Date - Adjustment disorder with depressed mood - Cataract - Encounter for removal of skin lesion right facial cheek - benign - Essential hypertension, benign - Glaucoma - Hypothyroidism 2009 - PMH - PAST MEDICAL HISTORY OF 2005 STRESS FRACTURE - Snoring - Syncope PAST SURGICAL HISTORY Procedure Laterality Date - COLONOSCOP W/ OR W/O [facility] SPEC 04/2009 Colonoscopy - COLONOSCOP W/ OR W/O [facility] SPE[facility] 12/15/15 Colonoscopy - PAST SURGICAL HISTORY OF 06-04-06 right brook bunionectomy and hammertoe repair - PAST SURGICAL HISTORY OF cataract surgery - REVISE SECONDARY VARICOSITY 02/2001 Varicose Vein Surgery, bilateral vein stripping FAMILY HISTORY Problem Relation Age of Onset - Cancer Father Pancreatic CA - Breast Cancer Father Nipple tumor on one side - Diabetes Mother - Hypertension Mother - Heart Mother - Stroke Mother - Thyroid Mother - Thyroid Maternal Grandmother SOCIAL HISTORY Social History Substance Use Topics - Smoking status: Never Smoker - Smokeless tobacco: Never Used - Alcohol use Yes Comment: Rarely REVIEW OF SYSTEMS HEENT: Cough and nasal congestion noted - patient reports likely d/t dust allergy from dirt getting kicked up in [facility]. Abdomen: No abdominal pain, nausea, vomiting, diarrhea, or constipation. No bloating, early satiety, indigestion, or increased flatulence. Bladder: No dysuria, gross hematuria, urinary frequency, urinary urgency, or incontinence Breast: No breast lumps, nipple d/c, overlying skin changes, redness or skin retraction Allergies and current medication updated:Yes EXAM: BP 122/78 Ht 5' 4.25 (1.63m) Wt 206 lb (93.4kg) BMI 35.08 kg/(m2). GENERAL: pleasant, female in no apparent distress HEENT: Normocephalic, atraumatic, mucus membranes moist and no lesions NECK: Supple, full range of motion, no adenopathy and thyroid normal DERMATOLOGY: Normal, without lesions, non-icteric and non-hirsute BREAST: soft, non-tender, symmetric, no dominant mass, normal nipple-areolar complex, no lymphadenopathy and no nipple discharge CHEST: Normal inspiratory effort ABDOMEN: soft, non-tender and no masses PELVIC: external genitalia normal, normal Bartholin's glands, urethra, Olivia's glands, no vulvar lesions, no cervical lesions, good vaginal support, physiologic discharge present, normal appearing perineal body and perianal region BIMANUAL: uterus normal size, shape and consistency, no adnexal masses and non-tender RECTOVAGINAL: rectovaginal exam negative for any masses or nodularity. NEURO: alert and oriented x3,exam grossly non-focal EXTREMITIES: normal ASSESSMENT/PLAN: 1) Health maintenance: Pap/HPV up to date. Mammogram up to date Nutrition, exercise and routine health maintenance exams reviewed. Calcium/Vitamin D supplementation information provided. Smoking cessation: Patient does not smoke. Colon cancer screening: up to date with screening TSH/lipids/glucose: followed by PCP Vitamin D: followed by PCP BMD: up to date 2) Follow up one year or sooner as needed BETTY Gaitan APRN.CNM 11/10/2017 4:17 PM Signed ACOG Screening Guidelines (2015) The following health screening schedule is recommended by the [place] [employer] (ACOG). Some of these tests may be ordered or performed by your primary care doctor. Pap test screening The pap test looks at cells on the cervix (the opening from the vagina to the uterus) to look for cancer or pre-cancerous changes. These changes are caused by the human papillomavirus (HPV). Studies estimate that half of all women will test positive for this virus within 3 years of starting sexual activity. For young women with a normal immune system, 90% of HPV infections will resolve within 2 years. There is a vaccine available against some forms of HPV. This is recommended for girls and women age 9-26 and is a series of 3 injections over 6 months. Because this vaccine does not protect against all HPV types which can cause cervical cancer, women who received the vaccine still need pap tests. Pap smear screening should be started at age 21. The pap test should be done every 3 years from age 21-29. From age 30-65, pap smears can be done every 5 years if HPV test is negative or every 3 years if HPV testing is not done. For women over the age of 65, ACOG recommends against screening women who have had adequate prior screening and are not otherwise at high risk for cervical cancer. Women who have had a hysterectomy also do not need routine pap smear screening unless the pap smear was done for a cervical cancer or moderate to severe dysplasia. Breast cancer screening Mammogram should be performed every 1-2 years starting at age 40 and every year starting at age 50. Screening may be started earlier depending on family history. Cholesterol screening Lipid panel (cholesterol test) should be checked every 5 years starting at age 45. Diabetes screening Fasting glucose (blood sugar) test should be performed every 3 years starting at age 45. Colorectal cancer screening Starting at age 50, women should have a screening colonoscopy at least every 10 years. Screening may be started earlier depending on family history. Thyroid screening Thyroid function test (TSH) should be checked every 5 years starting at age 50. Bone mineral density screening All postmenopausal women age 65 and over and postmenopausal women with risk factors for osteoporosis should have a bone mineral density test performed. Risk factors include race, family history of osteoporosis, personal history of fractures, poor nutrition, smoking, heavy alcohol use, early menopause, low calcium intake and low body weight. Certain medical conditions and long-term use of some medications may also increase risk. Referring Provider: SELF [[id number]] Allergies As of Date: 11/10/2017 Noted Allergy Reaction CATS 06/26/2007 Comments: postnasal drip Environmental [Other] 01/17/2006 Comments: mold, cats, ragweed VANCOMYCIN 04/24/2016 9 - Itching Date Reviewed: 11/10/2017 Reviewed by: Les Santana - Fully Assessed Reason for Visit: Yearly Exam With Mammogram [188] Primary Visit Diagnosis:Encounter for routine gynecologic examination in Medicare patient [Z01.419] Other Visit Diagnoses:Encounter for screening mammogram for breast cancer [Z12.31] Visit for screening mammogram [Z12.31] Order(s):JONES SCREENING [[id number]] Order #: [id number] FUTURE JONES SCREENING [[id number]] Order #: [id number] FUTURE Prescriptions as of 11/10/2017 Sig: BUPROPION HCL 75 MG TABLET Take 75 mg by mouth once shazia* ROSUVASTATIN 10 MG TABLET Take 10 mg by mouth once shazia* ACYCLOVIR 400 MG TABLET Take 1 tablet by mouth twice * Patient taking differently: Take 400 mg by mouth once etienne* COMPOUNDED PRESCRIPTION OTC CHolestoff CALCIUM PLUS ORAL Take by mouth. GLUCOSAMINE CHONDROITIN PLUS * Take by mouth. OMEGA-3 FATTY ACIDS-VITAMIN E* Take 1 capsule by mouth once * * CHOLECALCIFEROL (VITAMIN D3) * Take 1 tablet by mouth once d* * PANTOPRAZOLE 40 MG TABLET,DEL* Take 1 tablet by mouth daily * * SYNTHROID 25 MCG TABLET not sure of dosage * TIMOLOL MALEATE 0.5 % EYE GEL* Take one(1) drop daily in bot* * ASPIRIN 81 MG TABLET * LISINOPRIL 2.5 MG TABLET Take one(1) tablet daily. * ADVIL 200 MG TABLET two or three pills as needed * DAILY MULTIVITAMIN TABLET Take one(1) tablet daily. * FOLIC ACID 1 MG TABLET Take one(1) tablet daily. * LEXAPRO 5 MG TABLET 1/2 tab once daily LICORICE ROOT ORAL Take by mouth. GARCINIA CAMBOGIA ORAL Take by mouth. * GLUCOSAMINE HCL 1,500 MG TABL* Take by mouth once daily. 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] INVALID FOR*09/20/2014 Stress fracture of the metatarsals [M84.376A] INVALID FOR*09/20/2014 Other hammer toe (acquired) [M20.40] INVALID FOR*09/20/2014 Unspecified deformity of ankle and foot, acquir*INVALID FOR*09/20/2014 Hallux valgus (acquired) [M20.10] INVALID FOR*09/20/2014 Cellulitis and abscess of foot, except toes [L0*INVALID FOR*09/20/2014 Other complications due to other internal ortho*INVALID FOR*09/20/2014 Scar condition and fibrosis of skin [L90.5] INVALID FOR*09/20/2014 Pain in limb [M79.609] INVALID FOR*09/20/2014 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 Some of these tests may be ordered or performed by your primary care doctor. Pap test screening The pap test looks at cells on the cervix (the opening from the vagina to the uterus) to look for cancer or pre-cancerous changes. These changes are caused by the human papillomavirus (HPV). Studies estimate that half of all women will test positive for this virus within 3 years of starting sexual activity. For young women with a normal immune system, 90% of HPV infections will resolve within 2 years. There is a vaccine available against some forms of HPV. This is recommended for girls and women age 9-26 and is a series of 3 injections over 6 months. Because this vaccine does not protect against all HPV types which can cause cervical cancer, women who received the vaccine still need pap tests. Pap smear screening should be started at age 21. The pap test should be done every 3 years from age 21-29. From age 30-65, pap smears can be done every 5 years if HPV test is negative or every 3 years if HPV testing is not done. For women over the age of 65, ACOG recommends against screening women who have had adequate prior screening and are not otherwise at high risk for cervical cancer. Women who have had a hysterectomy also do not need routine pap smear screening unless the pap smear was done for a cervical cancer or moderate to severe dysplasia. Breast cancer screening Mammogram should be performed every 1-2 years starting at age 40 and every year starting at age 50. Screening may be started earlier depending on family history. Cholesterol screening Lipid panel (cholesterol test) should be checked every 5 years starting at age 45. Diabetes screening Fasting glucose (blood sugar) test should be performed every 3 years starting at age 45. Colorectal cancer screening Starting at age 50, women should have a screening colonoscopy at least every 10 years. Screening may be started earlier depending on family history. Thyroid screening Thyroid function test (TSH) should be checked every 5 years starting at age 50. Bone mineral density screening All postmenopausal women age 65 and over and postmenopausal women with risk factors for osteoporosis should have a bone mineral density test performed. Risk factors include race, family history of osteoporosis, personal history of fractures, poor nutrition, smoking, heavy alcohol use, early menopause, low calcium intake and low body weight. Certain medical conditions and long-term use of some medications may also increase risk. Disposition: Return in 1 year (on 11/10/2018), or if symptoms worsen or fail to improve, for Annual Exam. Follow-up and Disposition History Recorded Encounter Status:Closed by LES SANTANA CNM on 11/10/17 CNCO Observed: 11/10/2017 Status: COMPLETED Source: [place] 2:20 PM [facility]IN [facility] REPOSITORY [facility] ID: [id number] Author: Mammography Coordinator Service: (none) Author Type: Physician Type: Letter Filed: 11/11/2017 11:32 PM Note Text: November 10, 2017 PID: [id number] Pamela Gutierrez [address] [place] [address] Dear Ms. Gutierrez, We are pleased to inform you that the results of your recent breast imaging exam on 11/10/2017 are normal. Early detection of cancer is very important. We also understand recommendations regarding breast cancer screening are controversial. Please discuss with your primary care provider which strategy is best for you and whether a mammogram is right for you. Your imaging studies and report will be kept on file at [facility] as part of your permanent medical record and are available for your continuing care. Thank you for allowing us to help in meeting your health care needs. Sincerely, Dr. Jenkins Interpreting Radiologist [facility] (Normal over 40) JONES SCREENING Observed: 11/10/2017 Status: F Source: [place] 11:37 AM [facility] REPOSITORY * * *Final Report* * * DATE OF EXAM: Nov 10 2017 11:37AM JASKARAN [id number] - JONES SCREENING / PROCEDURE REASON: routine screening * * * * Physician Interpretation * * * * RESULT: #[id number] - JONES SCREENING BILATERAL DIGITAL SCREENING MAMMOGRAM WITH CAD: 11/10/2017 HISTORY: Routine Screening /Screening Mammogram - patient reports NO breast symptoms /Priors available for comparison. RESULT: TECHNIQUE: The study was acquired using full field digital technology and interpreted from soft copy. Current study was also evaluated with a Computer Aided Detection (CAD). Comparison is made to exams dated: 10/21/2016 mammogram, 10/12/2015 mammogram, 09/20/2014 mammogram, 09/15/2013 mammogram - [facility], 07/09/2011 mammogram - [facility], and 07/23/2012 mammogram - [facility]. There are scattered fibroglandular elements in both breasts. No significant masses, calcifications, or other findings are seen in either breast. There has been no significant interval change. IMPRESSION: NEGATIVE There is no mammographic evidence of malignancy.A 1 year screening mammogram is recommended. The exam was reviewed by a staff physician. Shanel Wolf M.D. ,[facility]/raulito:11/10/2017 14:20:40 Nanny Babysitter: Marley LEWSI(Desire)(Hattie), [facility] letter sent: Normal over 40 Mammogram BI-RADS: 1 Negative Senior Technologist: Raulito Transcribe Date/Time: Nov 10 2017 11:38A Dictated by: CHAPO WOLF MD This examination was interpreted and the report reviewed and electronically signed by: SHANEL JENKINS MD on Nov 10 2017 2:20PM EST [id number] PROGRESS Observed: 09/16/2017 Status: COMPLETED Source: [place] 12:52 PM [facility] REPOSITORY HNO ID: [id number] Author: Jerrell Block Service: (none) Author Type: Psychologist Type: Progress Notes Filed: 09/16/2017 12:56 PM Note Text: [facility] Progress Note Pamela Gutierrez 09/16/2017 [id number] Provider: Jerrell Garcia PSYD CPT Code: 41190 Psychotherapy 38-52 minutes Time: Approximately 45 minutes was spent in therapy. Parties Present: Patient Patient Presentation/Concerns: Pamela is leaving for a six week trip to [facility]. She stated that the [employer] has helped her to focus but she is gaining weight and focusing on food a great deal. She indicated making her eating habits a priority is difficult. She vacillates between feeling overwhelmed and energized by her projects. Discussed focusing more on how she is eating vs. what. She often has changed her diet. It may be starting with behavioral changes such as slowing down, reducing mindless eating while working. Mental Status: Mood: depressed Affect: mood-congruent Thoughts/Associations:goal directed Suicidal/Homicidal Ideation: None expressed or evidenced Other Observations: None Therapy Focus Mood/affect regulation MEDICATIONS: Per medical record: Current Outpatient Prescriptions: buPROPion (WELLBUTRIN) 75 mg tablet Take 75 mg by mouth once daily. Unsure of dose rosuvastatin (CRESTOR) 10 mg tablet Take 10 mg by mouth once daily. acyclovir (ZOVIRAX) 400 mg tablet Take 1 tablet by mouth twice daily. (Patient taking differently: Take 400 mg by mouth once daily. ) COMPOUNDED PRESCRIPTION OTC CHolestoff CALCIUM CARB/VIT D3/MINERALS (CALCIUM PLUS ORAL) Take by mouth. GLUC/CHND/OM3/DHA/EPA/FISH/STR (GLUCOSAMINE CHONDROITIN PLUS ORAL) Take by mouth. LICORICE ROOT ORAL Take by mouth. CHROM JODY/BRINDAL SARABIA (GARCINIA CAMBOGIA ORAL) Take by mouth. [place]illion-3 Fatty Acids-Vitamin E (FISH OIL) 1,000 mg cap Take 1 capsule by mouth once daily. cholecalciferol, Vitamin D3, 400 unit ORAL Tab Take 1 tablet by mouth once daily. Glucosamine HCl 1,500 mg ORAL Tab Take by mouth once daily. pantoprazole 40 mg ORAL tablet Take 1 tablet by mouth daily before breakfast. Take on empty stomach, 1/2 hr before meal. levothyroxine sodium(SYNTHROID 25 MCG TAB) not sure of dosage TIMOLOL 0.5 % EYE GEL FORMING SOLN Take one(1) drop daily in both eyes ASPIRIN 81 MG TAB LISINOPRIL 2.5 MG TAB Take one(1) tablet daily. ADVIL 200 MG TAB two or three pills as needed DAILY MULTIVITAMIN TAB Take one(1) tablet daily. FOLIC ACID 1 MG TAB Take one(1) tablet daily. LEXAPRO 5 MG TAB 1/2 tab once daily No current facility-administered medications for this visit. Psychiatric Medication Issues: No change from previous appointment DIAGNOSIS: Binge Eating Disorder Treatment Modality/Interventions: Cognitive Behavioral TREATMENT ASSESSMENT/PROGRESS: Stable TREATMENT PLAN/GOALS: Continue in therapy focusing on affect management and mindful eating Next appointment: 6 weeks after her trip. Jerrell Garcia PSYD WRIST MIN 3 VIEWS Observed: 09/01/2017 Status: F Source: [place] 12:31 PM [facility] REPOSITORY [facility] Imaging Services [address] [place] [address] 160[address] Wrist min 3 Views MR#: [id number] Acct: [id number] Name: PAMELA GUTIERREZ Rep #: [id number] : 1950 F 67 From: Mikael Alexander MD PCP: Lilliana Mishra DO Status: REG CLI Study: Wrist min 3 Views Date of Exam: 09/01/17 Exam# [id number] Ordering Dr: Lilliana Mishra DO STUDY: X-RAY - LEFT WRIST REASON FOR EXAM: Female, 67 years [...] Service support , CC: Lilliana Mishra DO Senior Technologist: Signed WRIST MIN 3 VIEWS Observed: 09/01/2017 Status: F Source: [place] 12:31 PM [facility] REPOSITORY [facility] Imaging Services [address] [place] [address] Wrist min 3 Views MR#: [id number] Acct: [id number] Name: PAMELA GUTIERREZ Rep #: [id number] : 1950 F 67 From: Mikael Alexander MD PCP: Lilliana Mishra DO Status: REG CLI Study: Wrist min 3 Views Date of Exam: 09/01/17 Exam# [id number] Ordering Dr: Lilliana Mishra DO STUDY: X-RAY - RIGHT WRIST REASON FOR EXAM: Female, 67 years [...] Service support , CC: Lilliana Mishra DO Senior Technologist: Signed SACRUM-COCCYX MIN 2 VIEWS Observed: 09/01/2017 Status: F Source: [place] 12:31 PM [facility] REPOSITORY [facility] Imaging Services [address] [place] [address] Sacrum-Coccyx min 2 Views MR#: [id number] Acct: [id number] Name: PAMELA GUTIERREZ Rep #: [id number] : 1950 F 67 From: Mikael Alexander MD PCP: Lilliana Mishra DO Status: REG CLI Study: Sacrum-Coccyx min 2 Views Date of Exam: 09/01/17 Exam# [id number] Ordering Dr: Lilliana Mishra DO STUDY: X-RAY - SACRUM/COCCYX REASON FOR EXAM: Female, 67 years old. Pain TECHNIQUE: 3 view(s) of the sacrum and coccyx were obtained. COMPARISON: None. FINDINGS: Normal bilateral sacroiliac joints. Normal visualized sacral ala and fused sacral bodies. Normal sacrococcygeal junction with a normal angulation. Normal coccygeal segments. There is a right sided subcutaneous implanted electronic device with leads extending into the spinal canal. This is likely an SCS (spinal cord or sacral stimulator). The presacral soft tissue structures are unremarkable. RAD/Sacrum-Coccyx min 2 Views IMPRESSION: Normal x-rays of the sacrum and coccyx. Electronically Signed: Mikael Alexander MD at 20:43 EDT , Service support , CC: Lilliana Mishra DO Senior Technologist: Signed HOSP Observed: 08/29/2017 Status: COMPLETED Source: [place] 12:00 AM [facility] REPOSITORY Patient Update (CORN) PAMELA GUTIERREZ ([id number]) 1950 F JAYME Date Time Provider Department 08/29/17 [place] During your visit today, we recorded the following information about you: Marilin Louie RN, RN 08/29/2017 11:35 AM Signed Patient E mails: Servando Ana, Thanks for coming on board to help with my stimulator implant issues. After moving up to 2.8; this is what I can report: 1. Negative: Increase in urinary urgency with little advance notice 2. Positive: A slight increase (maybe a minute or two) of advance notice on fecal urgency What is my next step? Best regards, Pamela Gutierrez Sent message to ask patient what is a good time to call her and we can make another adjustment to interstim together. Awaiting reply. Marilin Louie RN Allergies As of Date: 08/29/2017 Noted Allergy Reaction CATS 06/26/2007 Comments: postnasal drip Environmental [Other] 01/17/2006 Comments: mold, cats, ragweed VANCOMYCIN 04/24/2016 9 - Itching Date Reviewed: 08/25/2017 Reviewed by: Sandra Henderson) Larry - Fully Assessed Prescriptions as of 08/29/2017 Sig: BUPROPION HCL 75 MG TABLET Take 75 mg by mouth once shazia* ROSUVASTATIN 10 MG TABLET Take 10 mg by mouth once shazia* ACYCLOVIR 400 MG TABLET Take 1 tablet by mouth twice * Patient taking differently: Take 400 mg by mouth once etienne* COMPOUNDED PRESCRIPTION OTC CHolestoff CALCIUM PLUS ORAL Take by mouth. GLUCOSAMINE CHONDROITIN PLUS * Take by mouth. LICORICE ROOT ORAL Take by mouth. GARCINIA CAMBOGIA ORAL Take by mouth. OMEGA-3 FATTY ACIDS-VITAMIN E* Take 1 capsule by mouth once * * CHOLECALCIFEROL (VITAMIN D3) * Take 1 tablet by mouth once d* * GLUCOSAMINE HCL 1,500 MG TABL* Take by mouth once daily. * PANTOPRAZOLE 40 MG TABLET,DEL* Take 1 tablet by mouth daily * * SYNTHROID 25 MCG TABLET not sure of dosage * TIMOLOL MALEATE 0.5 % EYE GEL* Take one(1) drop daily in bot* * ASPIRIN 81 MG TABLET * LISINOPRIL 2.5 MG TABLET Take one(1) tablet daily. * ADVIL 200 MG TABLET two or three pills as needed * DAILY MULTIVITAMIN TABLET Take one(1) tablet daily. * FOLIC ACID 1 MG TABLET Take one(1) tablet daily. 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] INVALID FOR*09/20/2014 Stress fracture of the metatarsals [M84.376A] INVALID FOR*09/20/2014 Other hammer toe (acquired) [M20.40] INVALID FOR*09/20/2014 Unspecified deformity of ankle and foot, acquir*INVALID FOR*09/20/2014 Hallux valgus (acquired) [M20.10] INVALID FOR*09/20/2014 Cellulitis and abscess of foot, except toes [L0*INVALID FOR*09/20/2014 Other complications due to other internal ortho*INVALID FOR*09/20/2014 Scar condition and fibrosis of skin [L90.5] INVALID FOR*09/20/2014 Pain in limb [M79.609] INVALID FOR*09/20/2014 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 After moving up to 2.8; this is what I can report: 1. Negative: Increase in urinary urgency with little advance notice 2. Positive: A slight increase (maybe a minute or two) of advance notice on fecal urgency What is my next step? Best regards, Pamela Gutierrez Sent message to ask patient what is a good time to call her and we can make another adjustment to interstim together. Awaiting reply. Marilin Louie RN Encounter Status:Closed by MARILIN LOUIE on 08/29/17 PROGRESS Observed: 08/26/2017 Status: COMPLETED Source: [place] [id number] PM [facility] REPOSITORY HNO ID: [id number] Author: Jerrell Block Service: (none) Author Type: Psychologist Type: Progress Notes Filed: 09/03/2017 10:05 AM Note Text: [facility] Progress Note Pamela Gutierrez 08/26/2017 [id number] Provider: Jerrell Garcia PSYD CPT Code: 16120 Psychotherapy 38-52 minutes Time: Approximately 45 minutes was spent in therapy. Parties Present: Patient Patient Presentation/Concerns: Pamela indicated that she is struggling with procrastination. The Wellbutrain has helped her to focus, she stated. We discussed stop mechanisms that can help her work through her appetite. She can not depend on stop cues from her stomach as she continues to eat, or it's too late by the time she perceives stopping. Mental Status: Mood: happy Affect: mood-congruent Thoughts/Associations:goal directed Suicidal/Homicidal Ideation: None expressed or evidenced Other Observations: None Therapy Focus Mood/affect regulation MEDICATIONS: Per medical record: Current Outpatient Prescriptions: buPROPion (WELLBUTRIN) 75 mg tablet Take 75 mg by mouth once daily. Unsure of dose rosuvastatin (CRESTOR) 10 mg tablet Take 10 mg by mouth once daily. acyclovir (ZOVIRAX) 400 mg tablet Take 1 tablet by mouth twice daily. (Patient taking differently: Take 400 mg by mouth once daily. ) COMPOUNDED PRESCRIPTION OTC CHolestoff CALCIUM CARB/VIT D3/MINERALS (CALCIUM PLUS ORAL) Take by mouth. GLUC/CHND/OM3/DHA/EPA/FISH/STR (GLUCOSAMINE CHONDROITIN PLUS ORAL) Take by mouth. LICORICE ROOT ORAL Take by mouth. CHROM JODY/BRINDAL SARABIA (GARCINIA CAMBOGIA ORAL) Take by mouth. Vermillion-3 Fatty Acids-Vitamin E (FISH OIL) 1,000 mg cap Take 1 capsule by mouth once daily. cholecalciferol, Vitamin D3, 400 unit ORAL Tab Take 1 tablet by mouth once daily. Glucosamine HCl 1,500 mg ORAL Tab Take by mouth once daily. pantoprazole 40 mg ORAL tablet Take 1 tablet by mouth daily before breakfast. Take on empty stomach, 1/2 hr before meal. levothyroxine sodium(SYNTHROID 25 MCG TAB) not sure of dosage TIMOLOL 0.5 % EYE GEL FORMING SOLN Take one(1) drop daily in both eyes ASPIRIN 81 MG TAB LISINOPRIL 2.5 MG TAB Take one(1) tablet daily. ADVIL 200 MG TAB two or three pills as needed DAILY MULTIVITAMIN TAB Take one(1) tablet daily. FOLIC ACID 1 MG TAB Take one(1) tablet daily. LEXAPRO 5 MG TAB 1/2 tab once daily No current facility-administered medications for this visit. Psychiatric Medication Issues: No change from previous appointment DIAGNOSIS: Diagnosis: Binge Eating Treatment Modality/Interventions: Cognitive Behavioral TREATMENT ASSESSMENT/PROGRESS: Stable TREATMENT PLAN/GOALS: Continue in therapy focusing on anxiety management. Mindful eating skills for binge eating Next appointment: 2 weeks Jerrell Garcia PSYD PROGRESS Observed: 08/25/2017 Status: COMPLETED Source: [place] 10:51 AM [facility] REPOSITORY O ID: [id number] Author: Sandra Henderson) Larry Service: (none) Author Type: Nurse Practitioner Type: Progress Notes Filed: 08/25/2017 6:27 PM Note Text: CC: tail bone pain, discomfort at the insertion site of neuromodulator device, fecal urgency and incontinence HPI Pamela Gutierrez is a 67 year old female here today with complaints of back pain for the past nine months near the site of her implanted stimulator. She has a difficult time sleeping and is unable to sit for long periods. She has urgency. The stimulator is not as effective as it was in the beginning. S/p 04/24/16 implantation of sacral nerve stimulator for fecal incontinence Reports she did fine with good symptoms control for about 9 months after surgery Device implanted in the right hip, complains of pain in the tail bone with prolonged sitting, and discomfort around the insertion site of the device, mostly at night when she sleeps on the right side, wakes up in pain. The discomfort started about 4-6 months. In May she fell, landed on her buttocks - the tail bone pain is more intense since the fall, however states it was present before the fall. She has been seeing a chiropractor for the back pain Current complains; leaks stool with passing gas, has urgency The device helped in the beging for about 9 months, the symptoms have increased in intensity through the past several months Moves bowels once to twice a day, regular, stool consistency soft formed, does not need to strain to evacuate the stool Continues to have problems with urine control On her own she changed the program of the device She reports pain down the right outer leg She is planning to go on a mission trip to [facility] and plans to stay at least one month of longer, at times Some settings she tried could not tolerate Last c-scope in 2016 - had polypectomy at 30 cm - tubular adenoma, recommended repeat c-scope in 3 years per report - patient aware and will schedule repeat c-scope in 2019 Currently on pantoprazone 40 mg due to ?GERD - manifested through dry cough, states she does not have hearburn symptoms Advised to schedule EGD when she has her repeat c-scope in 2019 Current Outpatient Prescriptions: buPROPion (WELLBUTRIN) 75 mg tablet Take 75 mg by mouth once daily. Unsure of dose rosuvastatin (CRESTOR) 10 mg tablet Take 10 mg by mouth once daily. acyclovir (ZOVIRAX) 400 mg tablet Take 1 tablet by mouth twice daily. (Patient taking differently: Take 400 mg by mouth once daily. ) COMPOUNDED PRESCRIPTION OTC CHolestoff CALCIUM CARB/VIT D3/MINERALS (CALCIUM PLUS ORAL) Take by mouth. GLUC/CHND/OM3/DHA/EPA/FISH/STR (GLUCOSAMINE CHONDROITIN PLUS ORAL) Take by mouth. LICORICE ROOT ORAL Take by mouth. Vermillion-3 Fatty Acids-Vitamin E (FISH OIL) 1,000 mg cap Take 1 capsule by mouth once daily. cholecalciferol, Vitamin D3, 400 unit ORAL Tab Take 1 tablet by mouth once daily. pantoprazole 40 mg ORAL tablet Take 1 tablet by mouth daily before breakfast. Take on empty stomach, 1/2 hr before meal. levothyroxine sodium(SYNTHROID 25 MCG TAB) not sure of dosage TIMOLOL 0.5 % EYE GEL FORMING SOLN Take one(1) drop daily in both eyes ASPIRIN 81 MG TAB LISINOPRIL 2.5 MG TAB Take one(1) tablet daily. DAILY MULTIVITAMIN TAB Take one(1) tablet daily. FOLIC ACID 1 MG TAB Take one(1) tablet daily. LEXAPRO 5 MG TAB 1/2 tab once daily oxyCODONE immediate release (PERCOLONE) 5 mg immediate release tablet Take 1 tablet by mouth every 4 hours as needed for Pain. CHROM JODY/BRINDAL SARABIA (GARCINIA CAMBOGIA ORAL) Take by mouth. Glucosamine HCl 1,500 mg ORAL Tab Take by mouth once daily. ADVIL 200 MG TAB two or three pills as needed No current facility-administered medications for this visit. ALLERGIES Allergen Reactions - Cats postnasal drip - Environmental [Othe* mold, cats, ragweed - Vancomycin Itching Social History Substance Use Topics - Smoking status: Never Smoker - Smokeless tobacco: Never Used - Alcohol use Yes Comment: Rarely PAST MEDICAL HISTORY Diagnosis Date - Adjustment disorder with depressed mood - Cataract - Encounter for removal of skin lesion right facial cheek - benign - Essential hypertension, benign - Glaucoma - Hypothyroidism 2009 - [facility] - PAST MEDICAL HISTORY OF 2005 STRESS FRACTURE - Snoring - Syncope PAST SURGICAL HISTORY Procedure Laterality Date - COLONOSCOP W/ OR W/O [facility] SPE[facility] 04/2009 Colonoscopy - COLONOSCOP W/ OR W/O [facility] SPE[facility] 12/15/15 Colonoscopy - PAST SURGICAL HISTORY OF 06-04-06 right brook bunionectomy and hammertoe repair - PAST SURGICAL HISTORY OF cataract surgery - [facility] VARICOSITY 02/2001 Varicose Vein Surgery, bilateral vein stripping FAMILY HISTORY Problem Relation Age of Onset - Cancer Father Pancreatic CA - Breast Cancer Father Nipple tumor on one side - Diabetes Mother - Hypertension Mother - Heart Mother - Stroke Mother - Thyroid Mother - Thyroid Maternal Grandmother REVIEW OF SYSTEMS GENERAL: No weight loss, malaise or fevers RESPIRATORY: Negative for cough, hemoptysis, wheezing, COPD, dyspnea or shortness of breath CARDIOVASCULAR: hypertension well controlled, hyperlipedemia GI: GERD on medication, fecal incontinence : urinary incontinence PSYCH: ADD ENDOCRINE: Negative for cold or heat intolerance, polyuria, polydipsia and goiter, hypothyroidims PHYSICAL EXAM Ht 5' 5 (1.65m) Wt 205 lb (93.0kg) BMI 34.11 kg/(m2). General Appearance: Well appearing, alert, in no acute distress, well-hydrated, well nourished., Obese Skin: Skin color, texture, turgor normal, no suspicious rashes or lesions Head: Normocephalic, no masses, lesions, tenderness or abnormalities Oropharynx: No Dentures and Lips, mucosa, and tongue normal, teeth and gums normal, oropharynx normal Neck: Supple, no adenopathy; thyroid symmetric, normal size, no bruits Lungs: Lungs clear to auscultation. No wheezing, rhonchi, rales Heart: RRR without murmur, gallop, or rubs. No ectopy Extremities: No deformities, edema, skin discoloration, clubbing or cyanosis. Good capillary refill. Neuro: Gait normal. Reflexes normal and symmetric. Sensation grossly intact. Abdomen: Normal abdominal exam, Abdomen soft, non-tender. Bowel sounds normal. No masses, organomegaly Right hip incision - healed, device palpable under skin, no skin discoloration Machine Heel Seat Fitter present: Yes, Rosalind Blackwell NP student Assessment 67 y.o female, hx of fecal and urinary incontinence, s/p SNS device implantation which for the past 6 months does not seem to control symptoms Tail bone pain - aggravated after the fall and with prolonged sitting Discomfort at the insertion site of the device - usually at night when she sleeps on the right side - wakes up at night with pain Ana Norris RN kindly came in and checked the device Current setting: Program 2, intensity 2.5 New setting: Program 2, intensity 2.8 She provided patient with her e-mail and will keep in touch, adjusting the program every 3 days hx of GERD and tubular adenoma - due for c-scope in 2019, recommend consider EGD since she states she does not have sx of heartburn, medication prescribed due to persistent dry cough Plan RECOMMENDATION Keep in touch with Ana to adjust the program, she is aware if necessary will bring back to the office and have the rep available to help with programing She is scheduled to see her PCP next week and will discuss tail bone pain, possible CT scan, cannot have MRI due to the SNS device Urinary incontinence - will wait to see if adjusting the program will improve control If symptoms do not improve with above measures will schedule follow-up with Dr Stallworth I gave her my cell phone and encouraged to call me with any questions or concerns C-scope and possible EGD in 2019 - patient will schedule locally Sandra Juarez APRN.CNP DATE: 08/25/17 TIME: 10:51 AM [place] Observed: 08/25/2017 Status: COMPLETED Source: [place] 10:40 AM [facility] REPOSITORY Office Visit (JELLY) PAMELA GUTIERREZ ([id number]) 1950 F J[place] Date Time Provider Department 08/25/17 10:40 AM SANDRA JUAREZ NP During your visit today, we recorded the following information about you: Weight Height 93 kg 1.651 m Sandra Juarez APRN.CNP 08/25/2017 6:27 PM Signed CC: tail bone pain, discomfort at the insertion site of neuromodulator device, fecal urgency and incontinence HPI Pamela Gutierrez is a 67 year old female here today with complaints of back pain for the past nine months near the site of her implanted stimulator. She has a difficult time sleeping and is unable to sit for long periods. She has urgency. The stimulator is not as effective as it was in the beginning. S/p 04/24/16 implantation of sacral nerve stimulator for fecal incontinence Reports she did fine with good symptoms control for about 9 months after surgery Device implanted in the right hip, complains of pain in the tail bone with prolonged sitting, and discomfort around the insertion site of the device, mostly at night when she sleeps on the right side, wakes up in pain. The discomfort started about 4-6 months. In May she fell, landed on her buttocks - the tail bone pain is more intense since the fall, however states it was present before the fall. She has been seeing a chiropractor for the back pain Current complains; leaks stool with passing gas, has urgency The device helped in the beging for about 9 months, the symptoms have increased in intensity through the past several months Moves bowels once to twice a day, regular, stool consistency soft formed, does not need to strain to evacuate the stool Continues to have problems with urine control On her own she changed the program of the device She reports pain down the right outer leg She is planning to go on a mission trip to [facility] and plans to stay at least one month of longer, at times Some settings she tried could not tolerate Last c-scope in 2016 - had polypectomy at 30 cm - tubular adenoma, recommended repeat c-scope in 3 years per report - patient aware and will schedule repeat c-scope in 2019 Currently on pantoprazone 40 mg due to ?GERD - manifested through dry cough, states she does not have hearburn symptoms Advised to schedule EGD when she has her repeat c-scope in 2019 Current Outpatient Prescriptions: buPROPion (WELLBUTRIN) 75 mg tablet Take 75 mg by mouth once daily. Unsure of dose rosuvastatin (CRESTOR) 10 mg tablet Take 10 mg by mouth once daily. acyclovir (ZOVIRAX) 400 mg tablet Take 1 tablet by mouth twice daily. (Patient taking differently: Take 400 mg by mouth once daily. ) COMPOUNDED PRESCRIPTION OTC CHolestoff CALCIUM CARB/VIT D3/MINERALS (CALCIUM PLUS ORAL) Take by mouth. GLUC/CHND/OM3/DHA/EPA/FISH/STR (GLUCOSAMINE CHONDROITIN PLUS ORAL) Take by mouth. LICORICE ROOT ORAL Take by mouth. Vermillion-3 Fatty Acids-Vitamin E (FISH OIL) 1,000 mg cap Take 1 capsule by mouth once daily. cholecalciferol, Vitamin D3, 400 unit ORAL Tab Take 1 tablet by mouth once daily. pantoprazole 40 mg ORAL tablet Take 1 tablet by mouth daily before breakfast. Take on empty stomach, 1/2 hr before meal. levothyroxine sodium(SYNTHROID 25 MCG TAB) not sure of dosage TIMOLOL 0.5 % EYE GEL FORMING SOLN Take one(1) drop daily in both eyes ASPIRIN 81 MG TAB LISINOPRIL 2.5 MG TAB Take one(1) tablet daily. DAILY MULTIVITAMIN TAB Take one(1) tablet daily. FOLIC ACID 1 MG TAB Take one(1) tablet daily. LEXAPRO 5 MG TAB 1/2 tab once daily oxyCODONE immediate release (PERCOLONE) 5 mg immediate release tablet Take 1 tablet by mouth every 4 hours as needed for Pain. CHROM JODY/BRINDAL SARABIA (GARCINIA CAMBOGIA ORAL) Take by mouth. Glucosamine HCl 1,500 mg ORAL Tab Take by mouth once daily. ADVIL 200 MG TAB two or three pills as needed No current facility-administered medications for this visit. ALLERGIES Allergen Reactions - Cats postnasal drip - Environmental [Othe* mold, cats, ragweed - Vancomycin Itching Social History Substance Use Topics - Smoking status: Never Smoker - Smokeless tobacco: Never Used - Alcohol use Yes Comment: Rarely PAST MEDICAL HISTORY Diagnosis Date - Adjustment disorder with depressed mood - Cataract - Encounter for removal of skin lesion right facial cheek - benign - Essential hypertension, benign - Glaucoma - Hypothyroidism 2009 - [facility] - PAST MEDICAL HISTORY OF 2005 STRESS FRACTURE - Snoring - Syncope PAST SURGICAL HISTORY Procedure Laterality Date - COLONOSCOP W/ OR W/O [facility] SPEC 04/2009 Colonoscopy - COLONOSCOP W/ OR W/O [facility] SPE[facility] 12/15/15 Colonoscopy - PAST SURGICAL HISTORY OF 06-04-06 right brook bunionectomy and hammertoe repair - PAST SURGICAL HISTORY OF cataract surgery - [facility] SECONDARY VARICOSITY 02/2001 Varicose Vein Surgery, bilateral vein stripping FAMILY HISTORY Problem Relation Age of Onset - Cancer Father Pancreatic CA - Breast Cancer Father Nipple tumor on one side - Diabetes Mother - Hypertension Mother - Heart Mother - Stroke Mother - Thyroid Mother - Thyroid Maternal Grandmother REVIEW OF SYSTEMS GENERAL: No weight loss, malaise or fevers RESPIRATORY: Negative for cough, hemoptysis, wheezing, COPD, dyspnea or shortness of breath CARDIOVASCULAR: hypertension well controlled, hyperlipedemia GI: GERD on medication, fecal incontinence : urinary incontinence PSYCH: ADD ENDOCRINE: Negative for cold or heat intolerance, polyuria, polydipsia and goiter, hypothyroidims PHYSICAL EXAM Ht 5' 5 (1.65m) Wt 205 lb (93.0kg) BMI 34.11 kg/(m2). General Appearance: Well appearing, alert, in no acute distress, well-hydrated, well nourished., Obese Skin: Skin color, texture, turgor normal, no suspicious rashes or lesions Head: Normocephalic, no masses, lesions, tenderness or abnormalities Oropharynx: No Dentures and Lips, mucosa, and tongue normal, teeth and gums normal, oropharynx normal Neck: Supple, no adenopathy; thyroid symmetric, normal size, no bruits Lungs: Lungs clear to auscultation. No wheezing, rhonchi, rales Heart: RRR without murmur, gallop, or rubs. No ectopy Extremities: No deformities, edema, skin discoloration, clubbing or cyanosis. Good capillary refill. Neuro: Gait normal. Reflexes normal and symmetric. Sensation grossly intact. Abdomen: Normal abdominal exam, Abdomen soft, non-tender. Bowel sounds normal. No masses, organomegaly Right hip incision - healed, device palpable under skin, no skin discoloration Machine Heel Seat Fitter present: Yes, Rosalind Blackwell NP student Assessment 67 y.o female, hx of fecal and urinary incontinence, s/p SNS device implantation which for the past 6 months does not seem to control symptoms Tail bone pain - aggravated after the fall and with prolonged sitting Discomfort at the insertion site of the device - usually at night when she sleeps on the right side - wakes up at night with pain Ana Norris RN kindly came in and checked the device Current setting: Program 2, intensity 2.5 New setting: Program 2, intensity 2.8 She provided patient with her e-mail and will keep in touch, adjusting the program every 3 days hx of GERD and tubular adenoma - due for c-scope in 2019, recommend consider EGD since she states she does not have sx of heartburn, medication prescribed due to persistent dry cough Plan RECOMMENDATION Keep in touch with Ana to adjust the program, she is aware if necessary will bring back to the office and have the rep available to help with programing She is scheduled to see her PCP next week and will discuss tail bone pain, possible CT scan, cannot have MRI due to the SNS device Urinary incontinence - will wait to see if adjusting the program will improve control If symptoms do not improve with above measures will schedule follow-up with Dr Stallworth I gave her my cell phone and encouraged to call me with any questions or concerns C-scope and possible EGD in 2019 - patient will schedule locally Sandra Juarez APRN.CNP DATE: 08/25/17 TIME: 10:51 AM Referring Provider: SELF [200] Allergies As of Date: 08/25/2017 Noted Allergy Reaction CATS 06/26/2007 Comments: postnasal drip Environmental [Other] 01/17/2006 Comments: mold, cats, ragweed VANCOMYCIN 04/24/2016 9 - Itching Date Reviewed: 08/25/2017 Reviewed by: Sandra (Clinton) Larry - Fully Assessed Reason for Visit: Established Patient [175] Primary Visit Diagnosis:Full incontinence of feces [R15.9] Other Visit Diagnosis:Mixed stress and urge urinary incontinence [N39.46] Prescriptions as of 08/25/2017 Sig: BUPROPION HCL 75 MG TABLET Take 75 mg by mouth once shazia* ROSUVASTATIN 10 MG TABLET Take 10 mg by mouth once shazia* ACYCLOVIR 400 MG TABLET Take 1 tablet by mouth twice * Patient taking differently: Take 400 mg by mouth once etienne* COMPOUNDED PRESCRIPTION OTC CHolestoff CALCIUM PLUS ORAL Take by mouth. GLUCOSAMINE CHONDROITIN PLUS * Take by mouth. LICORICE ROOT ORAL Take by mouth. OMEGA-3 FATTY ACIDS-VITAMIN E* Take 1 capsule by mouth once * * CHOLECALCIFEROL (VITAMIN D3) * Take 1 tablet by mouth once d* * PANTOPRAZOLE 40 MG TABLET,DEL* Take 1 tablet by mouth daily * * SYNTHROID 25 MCG TABLET not sure of dosage * TIMOLOL MALEATE 0.5 % EYE GEL* Take one(1) drop daily in bot* * ASPIRIN 81 MG TABLET * LISINOPRIL 2.5 MG TABLET Take one(1) tablet daily. * DAILY MULTIVITAMIN TABLET Take one(1) tablet daily. * FOLIC ACID 1 MG TABLET Take one(1) tablet daily. * LEXAPRO 5 MG TABLET 1/2 tab once daily GARCINIA CAMBOGIA ORAL Take by mouth. * GLUCOSAMINE HCL 1,500 MG TABL* Take by mouth once daily. 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] INVALID FOR*09/20/2014 Stress fracture of the metatarsals [M84.376A] INVALID FOR*09/20/2014 Other hammer toe (acquired) [M20.40] INVALID FOR*09/20/2014 Unspecified deformity of ankle and foot, acquir*INVALID FOR*09/20/2014 Hallux valgus (acquired) [M20.10] INVALID FOR*09/20/2014 Cellulitis and abscess of foot, except toes [L0*INVALID FOR*09/20/2014 Other complications due to other internal ortho*INVALID FOR*09/20/2014 Scar condition and fibrosis of skin [L90.5] INVALID FOR*09/20/2014 Pain in limb [M79.609] INVALID FOR*09/20/2014 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 Disc: Course of therapy completed Encounter Status:Closed by SCOT JUAREZ CNP on 08/25/17 PROGRESS Observed: 08/14/2017 Status: COMPLETED Source: [place] 2:39 PM [facility] [place] REPOSITORY HNO ID: [id number] Author: Jerrell Block Service: (none) Author Type: Psychologist Type: Progress Notes Filed: 08/21/2017 3:17 PM Note Text: [facility] Progress Note Pamela Gutierrez 08/13/2017 [id number] Provider: Jerrell Garcia PSYD CPT Code: 13716 Psychotherapy 38-52 minutes Time: Approximately 45 minutes was spent in therapy. Parties Present: Patient Patient Presentation/Concerns: Pamela is leaving for [facility] again. She stated that the Wellbutrin has helped her to focus more. She stated being better able to finish projects. Pamela spoke about her difficulty changing her eating habits. She spoke about her childhood and the emotional connection to food after her father left at age [age]. She was very close to her grandfather. She stated always responding positively to food/enjoying it/wanting it. Mental Status: Mood: neutral Affect: mood-congruent Thoughts/Associations:goal directed Suicidal/Homicidal Ideation: None expressed or evidenced Other Observations: Therapy Focus Mood/affect regulation MEDICATIONS: Per medical record: Current Outpatient Prescriptions: acyclovir (ZOVIRAX) 400 mg tablet Take 1 tablet by mouth twice daily. oxyCODONE immediate release (PERCOLONE) 5 mg immediate release tablet Take 1 tablet by mouth every 4 hours as needed for Pain. COMPOUNDED PRESCRIPTION OTC CHolestoff CALCIUM CARB/VIT D3/MINERALS (CALCIUM PLUS ORAL) Take by mouth. GLUC/CHND/OM3/DHA/EPA/FISH/STR (GLUCOSAMINE CHONDROITIN PLUS ORAL) Take by mouth. LICORICE ROOT ORAL Take by mouth. CHROM JODY/BRINDAL SARABIA (GARCINIA CAMBOGIA ORAL) Take by mouth. Vermillion-3 Fatty Acids-Vitamin E (FISH OIL) 1,000 mg cap Take 1 capsule by mouth once daily. cholecalciferol, Vitamin D3, 400 unit ORAL Tab Take 1 tablet by mouth once daily. Glucosamine HCl 1,500 mg ORAL Tab Take by mouth once daily. pantoprazole 40 mg ORAL tablet Take 1 tablet by mouth daily before breakfast. Take on empty stomach, 1/2 hr before meal. levothyroxine sodium(SYNTHROID 25 MCG TAB) not sure of dosage TIMOLOL 0.5 % EYE GEL FORMING SOLN Take one(1) drop daily in both eyes ASPIRIN 81 MG TAB LISINOPRIL 2.5 MG TAB Take one(1) tablet daily. ADVIL 200 MG TAB two or three pills as needed DAILY MULTIVITAMIN TAB Take one(1) tablet daily. FOLIC ACID 1 MG TAB Take one(1) tablet daily. LEXAPRO 5 MG TAB 1/2 tab once daily No current facility-administered medications for this visit. Psychiatric Medication Issues: No change from previous appointment DIAGNOSIS: Binge Eating Treatment Modality/Interventions: Cognitive Behavioral TREATMENT ASSESSMENT/PROGRESS: Stable TREATMENT PLAN/GOALS: Continue in therapy focusing on affect management and mindful eating skills Next appointment: 2 weeks Jerrell Garcia PSYD PROGRESS Observed: 07/10/2017 Status: COMPLETED Source: [place] 12:53 PM [facility] REPOSITORY O ID: [id number] Author: Jerrell Block Service: (none) Author Type: Psychologist Type: Progress Notes Filed: 07/29/2017 12:46 PM Note Text: [facility] Progress Note Pamela Gutierrez 07/10/2017 [id number] Provider: Jerrell Garcia PSYD CPT Code: 74616 Psychotherapy 38-52 minutes Time: Approximately 45 minutes was spent in therapy. Parties Present: Patient Patient Presentation/Concerns: Pamela indicated that she had a positive trip to [facility]. She addressed many of the issues and expressed relief. She stated not focusing on her eating while gone and has returned to refocus. She met with Dr. Arriola. I spoke with Dr. Arriola concerned Pamela. She stated that she wanted Pamela to begin on Wellburtin, which may help with appetite. She was reluctant to start her on ADD medication as she did not seem to show signs of ADD as a child with the current information she had. Discussed starting the day with breakfast. She had been fasting daily which led to binge eating after 5:00. Encouraged her to stop doing this and use more mindful eating at each meal. Mental Status: Mood: neutral Affect: mood-congruent Thoughts/Associations:goal directed Suicidal/Homicidal Ideation: None expressed or evidenced Other Observations: None Therapy Focus Stress management and Mood/affect regulation MEDICATIONS: Per medical record: Current Outpatient Prescriptions: acyclovir (ZOVIRAX) 400 mg tablet Take 1 tablet by mouth twice daily. acyclovir (ZOVIRAX) 400 mg tablet Take 1 tablet by mouth twice daily. oxyCODONE immediate release (PERCOLONE) 5 mg immediate release tablet Take 1 tablet by mouth every 4 hours as needed for Pain. COMPOUNDED PRESCRIPTION OTC CHolestoff CALCIUM CARB/VIT D3/MINERALS (CALCIUM PLUS ORAL) Take by mouth. GLUC/CHND/OM3/DHA/EPA/FISH/STR (GLUCOSAMINE CHONDROITIN PLUS ORAL) Take by mouth. LICORICE ROOT ORAL Take by mouth. CHROM JODY/BRINDAL SARABIA (GARCINIA CAMBOGIA ORAL) Take by mouth. Vermillion-3 Fatty Acids-Vitamin E (FISH OIL) 1,000 mg cap Take 1 capsule by mouth once daily. cholecalciferol, Vitamin D3, 400 unit ORAL Tab Take 1 tablet by mouth once daily. Glucosamine HCl 1,500 mg ORAL Tab Take by mouth once daily. pantoprazole 40 mg ORAL tablet Take 1 tablet by mouth daily before breakfast. Take on empty stomach, 1/2 hr before meal. levothyroxine sodium(SYNTHROID 25 MCG TAB) not sure of dosage TIMOLOL 0.5 % EYE GEL FORMING SOLN Take one(1) drop daily in both eyes ASPIRIN 81 MG TAB LISINOPRIL 2.5 MG TAB Take one(1) tablet daily. ADVIL 200 MG TAB two or three pills as needed DAILY MULTIVITAMIN TAB Take one(1) tablet daily. FOLIC ACID 1 MG TAB Take one(1) tablet daily. LEXAPRO 5 MG TAB 1/2 tab once daily No current facility-administered medications for this visit. Psychiatric Medication Issues: No change from previous appointment DIAGNOSIS: Binge Eating Disorder Treatment Modality/Interventions: Cognitive Behavioral TREATMENT ASSESSMENT/PROGRESS: Recommitted to goals today. During stress and travel, she stated it is difficult for her to focus on goals. She stated that some of the pressure is external with timing but some of it is her own internal pressure/worry/not prioritizing. TREATMENT PLAN/GOALS: Continue in therapy focusing on affect management. 1) Utilize mindful eating skills 2) Work on reducing her own internal pressure with CBT and prioritizing/self care Next appointment: 2 weeks Jerrell Garcia PSYD PROGRESS Observed: 05/13/2017 Status: COMPLETED Source: [place] 1:58 PM [facility] REPOSITORY HNO ID: [id number] Author: Jerrell Block Service: (none) Author Type: Psychologist Type: Progress Notes Filed: 05/27/2017 9:36 AM Note Text: [facility] Progress Note Pamela Gutierrez 05/13/2017 [id number] Provider: Jerrell Garcia PSYD CPT Code: 34738 Psychotherapy 38-52 minutes Time: 45 Minutes Parties Present: Patient Patient Presentation/Concerns: Pamela indicated that she is going to [facility] for a month and stopping in [facility]. Going to the location and getting her jazmin in order will likely help to reduce her stress level at home. She stated reducing carbs for the past few weeks. She indicated not restricting what she eats on vacation but instead being more mindful. She met with her doctor who referred her to her partner who does ADD evals. Mental Status: Mood: neutral Affect: mood-congruent Thoughts/Associations:goal directed Suicidal/Homicidal Ideation: None expressed or evidenced Patient denies any suicidal or homicidal ideation, plan or intent at this time. Other Observations: None Therapy Focus Mood/affect regulation MEDICATIONS: Per medical record: Current Outpatient Prescriptions: acyclovir (ZOVIRAX) 400 mg tablet Take 1 tablet by mouth twice daily. acyclovir (ZOVIRAX) 400 mg tablet Take 1 tablet by mouth twice daily. oxyCODONE immediate release (PERCOLONE) 5 mg immediate release tablet Take 1 tablet by mouth every 4 hours as needed for Pain. COMPOUNDED PRESCRIPTION OTC CHolestoff CALCIUM CARB/VIT D3/MINERALS (CALCIUM PLUS ORAL) Take by mouth. GLUC/CHND/OM3/DHA/EPA/FISH/STR (GLUCOSAMINE CHONDROITIN PLUS ORAL) Take by mouth. LICORICE ROOT ORAL Take by mouth. CHROM JODY/BRINDAL SARABIA (GARCINIA CAMBOGIA ORAL) Take by mouth. Vermillion-3 Fatty Acids-Vitamin E (FISH OIL) 1,000 mg cap Take 1 capsule by mouth once daily. cholecalciferol, Vitamin D3, 400 unit ORAL Tab Take 1 tablet by mouth once daily. Glucosamine HCl 1,500 mg ORAL Tab Take by mouth once daily. pantoprazole 40 mg ORAL tablet Take 1 tablet by mouth daily before breakfast. Take on empty stomach, 1/2 hr before meal. levothyroxine sodium(SYNTHROID 25 MCG TAB) not sure of dosage TIMOLOL 0.5 % EYE GEL FORMING SOLN Take one(1) drop daily in both eyes ASPIRIN 81 MG TAB LISINOPRIL 2.5 MG TAB Take one(1) tablet daily. ADVIL 200 MG TAB two or three pills as needed DAILY MULTIVITAMIN TAB Take one(1) tablet daily. FOLIC ACID 1 MG TAB Take one(1) tablet daily. LEXAPRO 5 MG TAB 1/2 tab once daily No current facility-administered medications for this visit. Psychiatric Medication Issues: No change from previous appointment DIAGNOSIS: Diagnosis: binge eating Treatment Modality/Interventions: Cognitive Behavioral TREATMENT ASSESSMENT/PROGRESS: Stable TREATMENT PLAN/GOALS: Continue in therapy focusing on affect management, mindful eating skills, stress management. Next appointment: 2 weeks Jerrell Garcia PSYD ALLERGIES ALLERGIES DATE TYPE / CODE NAME / CODE REACTION SEVERITY SOURCE 03/08/2017 Drug No Known Unknown [place] Allergy/[id number]( Allergies/F0019 [facility]) 03459(RXNORM) Hospital Repository 04/24/2016 DRUG VANCOMYCIN ITCHING [place] INGREDI/[id number]([facility] NOMED CT) [place] Repository 06/26/2007 Animal/[id number](SN CATS [place] OMED CT) [facility] [place] Repository 01/17/2006 Miscellaneous OTHER [place] [id number] [place] [place] [facility] ENCOUNTERS ENCOUNTERS ADMIT/DISCHARGE ACCOUNT ADMITTING ENCOUNTER LOCATION SOURCE NUMBER CLASS 04/06/2018 [id number] Ambulatory Building:[facility] [place] Practices Repository 04/01/2018 [id number] Ambulatory [facility] ing:[facility] Repository 02/17/2018/02/25/20 [id number] Ambulatory [address] Repository 01/28/2018/01/29/20 [id number] Ambulatory [address] Repository 01/14/2018/01/21/20 [id number] Ambulatory [address] Repository 12/24/2017/12/30/19 [id number] Ambulatory [address] Repository 11/10/2017 [id number] Ambulatory [facility] ing:RAD Repository 11/10/2017/11/12/19 [id number] Ambulatory [address] Repository 11/10/2017/11/11/19 [id number] Ambulatory [address] Repository 09/16/2017/09/19/19 [id number] Ambulatory [address] Repository 09/01/2017 [id number] [facility] ing:[facility] Repository 08/26/2017/09/04/19 [id number] Ambulatory [address] Repository 08/25/2017/08/26/19 [id number] Ambulatory [address] Repository 08/13/2017/08/22/19 [id number] Ambulatory [address] Repository 07/10/2017/07/30/19 [id number] Ambulatory [address] Repository 05/13/2017/05/28/19 [id number] Ambulatory [address] Repository FUNCTIONAL STATUS FUNCTIONAL STATUS No Functional Status Records FoundEQUIPMENT EQUIPMENT No Equipment Records FoundPAYERS PAYERS ENCOUNTER GUARANTOR PAYER SUBSCRIBER SOURCE 04/06/2018 Pamela A Primary Pamela A OHIP Practices MillerDOB: Insurance:[employer] MillerDOB: Repository [id number] Ins/MedicarePolicy [id number] Tom Number: 0 [place] [id number] [place] [address]Kpy: (364) Date:[id number] 30[address]Nys: () Name:FLORENCE Duarte [phone] () [id number] PasoMALCOM [id number]: 04/06/2018 Secondary Pamela A OHIP Practices Insurance:Referrals MillerDOB: Repository licy Number: [id number] Effective Date: - 0 Tom [id number] Name:Jac[place] [address]Pbj: ~(3 30 (HP) 04/06/2018 [facility] Insurance:Summa MikoDOB: Repository [facility] Number: [id number] 0 Tom Date: - [place], [place] [id number] [id number]: (330) Name:[facility] [phone] () [address], [place] [address]KW: 04/06/2018 [facility] Insurance:Medical MillerDOB: Repository [facility] [id number] Number: 0 Tom [id number] [place], [place] Date:2006-08-15 [address]Vvp: (280) [id number] [phone] (HP) Name:[facility] [address], [place] [id number]: 04/06/2018 [facility] Pamela A [facility] Insurance:AETUniversal Health Servicesalexys ReneeB: Repository Number: [id number] 0 Tom Date: - [place], [place] [id number] [address]Xrq: Name:[facility] [id number] ~(3 [facility] [place] [phone]: 30 (HP) 04/01/2018 PAMELA A Primary PAMELA A Janna [id number] Insurance:EDWIGE MINER: Community TOM [facility] [place]: [id number] [id number] Repository [address]Cjl: (330) Date:0486-89-00NP [phone] () [id number] [place] [address]AR: 04/01/2018 Secondary NOT GIVENUNK Janna Insurance:SELF PAY [facility] Number: Effective Repository Date:2018-03-26 11/10/2017 LUCIE [id number] Primary PAMELA A Janna TOM Insurance:AETSHOBHA CHAVEZB: Community [facility] Number: [id number] Hospital [address]Qql: 330 [id number] Repository [phone] () Date:[id number] [address] [place] SHEN [address]UY: 11/10/2017 Secondary NOT GIVENUNK Janna Insurance:SELF PAY [facility] Number: Effective Repository Date:2017-11-10 09/01/2017 LUCIE [id number] Primary PAMELA A Janna TOM Insurance:EDWIGE CHAVEZB: [facility] Number: [id number] Hospital [address]Aho: (330 [id number] Repository [phone] () Date:[id number] [place] [address]DB: 09/01/2017 Secondary NOT GIVENUNK [place] Insurance:SELF PAY [facility] Number: Effective Repository Date:2017-09-01 SOCIAL HISTORY SOCIAL HISTORY No Social History Records FoundFAMILY HISTORY FAMILY HISTORY No Family History Records FoundADVANCE DIRECTIVES ADVANCE DIRECTIVES No Advanced Directives Records FoundINFORMATION SOURCE INFORMATION SOURCE DATE CREATED AUTHOR AUTHOR'S ORGANIZATION 04/11/2018 ADDY
== END ==
PROVIDERS: Family Provider Internal Medicine; PCP Internal Medicine; Referring Provider Internal Medicine; Visit Provider Internal Medicine
DX: R07.89 Other chest pain (principal)
CPT/HCPCS: 36415; 76705; 78452; 80053; 82550; 84484; 85025; 93017; 93306; A9500; A4216; J2785

== ENCOUNTER → 2018-04-14 11:29 | Outpatient (CLI) | payer MEDICARE, SELFPAY ==
--- NOTE | 2018-04-14 11:32 | NM_ITS ---
CLINICAL: 67-year-old female with reported history of epigastric pain. RADIONUCLIDE HEPATOBILIARY SCINTIGRAPHY COMPARISON: Abdominal ultrasound report 04/01/2018 FINDINGS: Following the intravenous administration of 5.5 mCi of 99m Tc Mebrofenin, hepatobiliary images reveal: 1. Relatively prompt and homogeneous radiopharmaceutical concentration is noted by a normal sized liver. No parenchymal defects are identified. 2. Gallbladder activity is identified at 15 minutes post radiopharmaceutical administration. 3. Small intestinal tract is observed at 15 minutes following tracer injection. 4. Washout of the radiopharmaceutical by the hepatic parenchyma appears qualitatively normal. Cholecystokinin (0.02 ug/kg) was administered intravenously over a 30-minute period. The post CCK gallbladder ejection fraction calculated at 19 and 31 minutes following Cholecystokinin administration was noted to be < 5 % (normal greater than 35%). HI/Hepatobilliary Img w/Pharm Int IMPRESSION: 1. ABNORMAL 99m Tc Mebrofenin hepatobiliary imaging examination with Cholecystokinin. A. A gallbladder ejection fraction calculated to be less than 35% following the administration of Cholecystokinin is consistent with the presence of functional hepatobiliary disease (gallbladder and/or sphincter of Oddi dyskinesia) and/or organic hepatobiliary disease (chronic acalculous cholecystitis and/or cystic duct syndrome) in patients with intermediate to high pretest probabilities of hepatobiliary illness. (Martín Mancera et al, Journal of Nuclear Medicine 32:1695, 1990). Electronically Signed: Dylan Posadas DO at 10:56 EST Tel , Service support ,
== END ==
PROVIDERS: Family Provider Internal Medicine; PCP Internal Medicine; Referring Provider Internal Medicine; Visit Provider Internal Medicine
DX: R10.11 Right upper quadrant pain (principal)
CPT/HCPCS: 78227; A9537; J2805

== ENCOUNTER 2018-05-11 06:00 | Day surgery (SDC) | payer MEDICARE, SELFPAY ==
[2018-05-07 12:48] VITALS: BMI 33.0
[2018-05-11] VITALS (7 sets, daily range): BP systolic 105–134; BP diastolic 62–66; PULSE 58–78; RESP 16–18; TEMP 36.3–37.2; O2SAT 94–134; BMI 35.1
--- NOTE | 2018-05-11 07:00 | EGD_PTH ---
PATIENT: MARILUZ GUTIERREZ LOC: EN U#:[id number] AGE/SX: 67/F ROOM: RE05/11/[address]: Dr. Jus Roberts MD : 1950 BED: DIS: 05/11/2018 SPEC #: [id number] RECD: 05/11/18 10:30 STATUS: YONNY MILDRED #: [id number] MARTHA: 05/11/18 07:[address]: Jus Roberts DEPT: SURGICAL PATHOLOGY RECD BY: Luis Lopes ENTERED: 05/11/18 14:57 SP TYPE: EGD BIOPSY IMANI DR: Dr. Lilliana Mishra, Tissues: A - Gastric mucous membrane B - Gastric mucous membrane Procedures: Surgery Specimen Level IV HEADER OPERATION: EGD ([facility] [place]) PRE-OP DIAGNOSIS: Abnormal HIDA scan; chest pain; GERD TISSUE SUBMITTED: A - Antral biopsy for H. pylori and pathology, B - Fundic gland polyp biopsy MICROSCOPIC DIAGNOSIS A. Antral biopsy: Superficial fragments of gastric mucosa with minimal chronic inflammation. See comment. B. Fundic gland polyp, biopsy: Consistent with fundic gland polyp. BELKIS:paige 05/12/18 COMMENT A. The results of immunohistochemistry for Helicobacter pylori will be reported separately ([id number]). MICROSCOPIC DESCRIPTION Slides are reviewed. GROSS DESCRIPTION A - Received in fixative is one container labeled with the patient's name and designated antral biopsy. The specimen consists of two irregular fragments of light prince soft tissue that in aggregate measure 0.4 x 0.3 x 0.1 cm. The specimen is totally submitted in one cassette. B - Received in fixative is one container labeled with the patient's name and designated fundic gland polyp biopsy. The specimen consists of one irregular fragment of light prince soft tissue that measures 0.3 x 0.3 x 0.1 cm. The specimen is totally submitted in one cassette. / BELKIS:paige 05/11/18 TC:4 CPT: 47439 x2
--- NOTE | 2018-05-11 07:00 | IMM_PTH ---
PATIENT: MARILUZ GUTIERREZ LOC: EN U#:[id number] AGE/SX: 67/F ROOM: RE05/11/[address]: Dr. Jus Roberts MD : 1950 BED: DIS: 05/11/2018 SPEC #: [id number] RECD: 05/12/18 10:12 STATUS: YONNY RERonit #: [id number] MARTHA: 05/11/18 07:[address]: Jus Roberts DEPT: IMMUNOHISTOCHEMISTRY RECD BY: Bhavana Key ENTERED: 05/12/18 10:13 SP TYPE: IMMUNO OTHR DR: Dr. Lilliana Mishra DO Tissues: A - Stomach, NOS Procedures: H Pylori (initial) PHYSICIAN & INSTITUTION [place] [id number] SPECIMEN INFORMATION: Tissue Source: A - Antral biopsy Clinical Info: Abnormal HIDA scan; chest pain; GERD Specimen Number: [id number] CPT code: 84534 METHODOLOGY: Deparaffinized sections of prefer/formalin-fixed tissue or PAP/DQ stained slides are incubated with monoclonal/polyclonal antibodies/oligonucleotide probes. Localization is made via biotin free immunoperoxidase method. Appropriate controls are performed and reacted as expected. Results on target cell population are indicated in the following table: RESULTS: ANTIBODY / CLONE RESULT Block A H Pylori (polyclonal) negative These tests were developed and their performance characteristics determined by [facility]. They may not have been cleared or approved by the U.S. Food and Drug Administration. The FDA has determined that such clearance or approval is not necessary. INTERPRETATION: A. Antral biopsy: Negative for Helicobacter pylori organisms. SJ:paige 05/12/18
--- NOTE | 2018-05-11 07:20 | OP.ENDO_ITS ---
05/11/2018 Lilliana Mishra [address] [place] [address] Re : Upper GI endoscopy procedure for Pamela Crouch Dear Dr. Mishra This procedure was performed on Friday, May 11, 2018. My impressions and recommendations are as follows: Impressions : - Z-line regular, 37 cm from the incisors. - No endoscopic esophageal abnormality to explain patient's dysphagia. - Multiple gastric polyps. Resected and retrieved. - Gastritis. Biopsied. - Normal examined duodenum. No specimens collected. Recommendations : - Discharge patient to home. - Resume previous diet. - Continue present medications. - Await pathology results. - Perform ambulatory esophageal manometry at appointment to be scheduled. My findings are described in the full procedure note, which is enclosed. If I can be of further assistance, please feel free to contact me at Doctor phone number(s): , Fax: [phone], Work: . Sincerely, MD Jus Farnsworth MD 05/11/2018 7:19:59 AM This report has been signed electronically.
== END 2018-05-11 08:15 | disposition home or self-care (01) ==
LOC: EN 06:01 → AC 06:02
PROVIDERS: Family Provider Internal Medicine; PCP Internal Medicine; Referring Provider Surgery; Visit Provider Surgery
PROC: 0DJ08ZZ Inspection of Upper Intestinal Tract, Via Natural or Artificial Opening Endoscopic (ICD-10-PCS; CPT 43235; principal; 2018-05-11 06:55)
DX: K21.9 Gastro-esophageal reflux disease without esophagitis (principal); K29.70 Gastritis, unspecified, without bleeding; K31.7 Polyp of stomach and duodenum; K44.9 Diaphragmatic hernia without obstruction or gangrene; R13.10 Dysphagia, unspecified; R07.89 Other chest pain; I10 Essential (primary) hypertension; E78.00 Pure hypercholesterolemia, unspecified; E06.9 Thyroiditis, unspecified; Z79.899 Other long term (current) drug therapy
CPT/HCPCS: 43239; 88305; 88342; J7120; J2405

== ENCOUNTER 2018-05-28 09:03 | Day surgery (SDC) | payer MEDICARE, SELFPAY ==
[2018-05-13 16:07] VITALS: BMI 35.1
[2018-05-28 09:41] VITALS: BP 132/94; PULSE 78; RESP 16; TEMP 36; O2SAT 98
== END 2018-05-28 10:01 | disposition home or self-care (01) ==
PROVIDERS: Surgery; Family Provider Internal Medicine; PCP Internal Medicine; Referring Provider Surgery; Visit Provider Surgery
PROC: F00ZJWZ Instrumental Swallowing and Oral Function Assessment using Swallowing Equipment (ICD-10-PCS; CPT 43235; principal; 2018-05-28 08:55)
DX: R13.10 Dysphagia, unspecified (principal); R07.9 Chest pain, unspecified
CPT/HCPCS: 91010

== ENCOUNTER → 2018-10-22 14:04 | Outpatient (CLI) | payer MEDICARE, SELFPAY ==
[2018-05-13 16:07] VITALS: BMI 35.1
--- NOTE | 2018-10-22 14:14 | VDLE_ITS ---
Reason For Study: Pain RIGHT LEFT GSV is normal. CFV is compressible, spontaneous, phasic, CFV is compressible, spontaneous, phasic, competent, and demonstrates normal competent and demonstrates normal augmentation. augmentation. FV is compressible, spontaneous, phasic, competent and demonstrates normal augmentation. POP V is compressible, spontaneous, phasic, competent and demonstrates normal augmentation. T/P Trunk is compressible. PTV is compressible. RT PerV is compressible. Procedure Exam performed in department. A preliminary report was called and/or faxed to Tad. Interpretation Summary Deep veins of the right lower extremity are patent and compressible segmentally. There is no evidence of right lower extremity deep vein thrombosis. Valvular competence appears intact within the proximal deep venous system on the right . The right greater saphenous vein appears patent and compressible segmentally. Ordering Physician: Lilliana Mishra Referring Physician: Lilliana Mishra Performed By: Marisabel Juarez RVT
== END ==
PROVIDERS: Family Provider Internal Medicine; PCP Internal Medicine; Referring Provider Internal Medicine; Visit Provider Internal Medicine
DX: M79.661 Pain in right lower leg (principal)
CPT/HCPCS: 93971

== ENCOUNTER → 2020-05-17 13:20 | Outpatient (CLI) | payer MEDICARE, SELFPAY ==
[2018-05-13 16:07] VITALS: BMI 35.1
--- NOTE | 2020-05-17 13:25 | CT_ITS ---
STUDY: CT BRAIN WITHOUT CONTRAST REASON FOR EXAM: Female, 69 years old. MEMORY IMPAIRMENT RADIATION DOSAGE (If Supplied By Facility): CTDIvol = ( 44.99 ) mGy, DLP = ( 745.49 ) mGycm TECHNIQUE: Transaxial CT imaging of the brain was performed without administration of intravenous contrast material. Individualized dose optimization techniques were used for this CT. COMPARISON: No relevant priors. FINDINGS: Normal soft tissue structures. Normal calvarium. There is mild cerebral atrophy with widening of the extra-axial spaces and ventricular dilatation. Normal white matter tracts of the cerebral hemispheres. Normal basal ganglia and thalami. Normal brainstem. Normal cerebellum. There is no intracranial hemorrhage. There are no findings of an acute ischemic infarction. Partial opacification of the left maxillary sinus suggestive of chronic maxillary sinusitis. CT/Brain/Head without Contrast IMPRESSION: Chronic involutional changes of the brain. Findings suggestive of a chronic left maxillary sinusitis. Electronically Signed: Hi Shannon MD at 14:19 EST , Service support ,
== END ==
PROVIDERS: PCP Internal Medicine; Referring Provider Internal Medicine; Visit Provider Internal Medicine
DX: R41.3 Other amnesia (principal)
CPT/HCPCS: 70450

== ENCOUNTER → 2020-09-15 16:00 | Outpatient (CLI) | payer MEDICARE, SELFPAY ==
[2018-05-13 16:07] VITALS: BMI 35.1
[2020-09-15 16:05] LABS: Bacteria 0 SEEN /hpf (None Seen); Mucous, Urine 0 SEEN /hpf (<or=2+); Squamous Epithelial Cells - UA 0 SEEN /hpf (5-10)
[2020-09-15 17:31] LABS: Color, Urine Yellow (Yellow); Glucose, Dipstick Normal (Normal); Ketone-Dipstick Negative (Negative); Leukocyte Esterase-Dipstick 500 /ul (Negative); Nitrite-Dipstick Negative (Negative); Occult Blood-Urine 50 /ul (Negative); Protein-Dipstick Negative (Negative); Urine Bilirubin Dipstick Negative (Negative); Urine Clarity Clear (Clear); Urine Urobilinogen Normal (Normal)
[2020-09-15 17:32] LABS: Absolute Neutrophil Count 12.8 X10^3/uL (2.0-7.7); Basophil# 0.01 X10^3/uL; Basophil% 0.1 % (0-1); Hematocrit 42.6 % (37-47); Lymphocyte % 9.2 % (19-41); Mean Corp Hgb Conc 32.9 g/dL (32-36); Mean Corpuscular Hgb 32.3 pg (27.0-32.0); Mean Corpuscular Volume 98.4 fL (81-99); Mean Platelet Vol. 9.5 fl (6.2-12.0); Monocyte# 0.94 X10^3/uL; Monocyte% 6.2 % (0-10); NRBC Flagged by Analyzer 0 % (0-5); Neutrophil # 12.77 X10^3/uL (2.7-7.7); Platelet Count 299 K/mm3 (150-450); RBC Distribution Width CV 13.2 % (11.6-14.6); RBC Distribution Width SD 47.8 fl (35.1-43.9); Red Blood Count 4.33 M/mm3 (4.2-5.4); White Blood Count 15.2 K/mm3 (4.4-11.0)
[2020-09-15 17:38] LABS: Red Blood Cells-Urine 0-5 SEEN /hpf (0-5); White Blood Cells 5-10 SEEN /hpf (0-5)
[2020-09-15 18:10] LABS: AST(SGOT) 14 U/L (15-37); Alanine Aminotransfer ALT/SGPT 34 U/L (13-56); Albumin, Serum 3.7 g/dL (3.2-5.0); Alkaline Phosphatase 71 U/L (45-117); Anion Gap 8 (5-15); BUN 19 mg/dL (7-18); BUN/Creat Ratio 22.3 RATIO (10-20); Calcium,Total 9.1 mg/dL (8.5-10.1); Chloride 104 mmol/L (98-107); Cholesterol 186 mg/dL (200); Creatinine, Serum 0.85 mg/dL (0.55-1.02); EST Glomerular Filtration Rate 70 mL/min (>60); Est Glom Filt Rate - Afr Amer 85 mL/min (>60); Globulin 3.6 g/dL (2.2-4.2); Glucose 101 mg/dL (74-106); High Density Lipoprotein 58 mg/dL; Potassium 4.4 mmol/L (3.5-5.1); Protein, Total 7.3 g/dL (6.4-8.2); Sodium Level 139 mmol/L (136-145); Thyroid Stim Hormone (TSH) 1.83 uIU/mL (0.358-3.74); Triglycerides 95 mg/dL; Very Low Density Lipoprotein 19 mg/dL (5-40)
== END ==
PROVIDERS: PCP Internal Medicine; Referring Provider Internal Medicine; Visit Provider Internal Medicine
DX: E78.2 Mixed hyperlipidemia (principal); R60.9 Edema, unspecified
CPT/HCPCS: 36415; 80053; 80061; 81001; 84443; 85025

== ENCOUNTER → 2020-09-20 15:02 | Outpatient (CLI) | payer MEDICARE, SELFPAY ==
[2018-05-13 16:07] VITALS: BMI 35.1
--- NOTE | 2020-09-20 15:06 | VDLE_ITS ---
Reason For Study: Edema RIGHT LEFT GSV is normal. GSV is normal. CFV is compressible, spontaneous, phasic, CFV is compressible, spontaneous, phasic, competent and demonstrates normal competent, and demonstrates normal augmentation. augmentation. FV is compressible, spontaneous, phasic, FV is compressible, spontaneous, phasic, competent and demonstrates normal competent and demonstrates normal augmentation. augmentation. POP V is compressible, spontaneous, phasic, POP V is compressible, spontaneous, phasic, competent and demonstrates normal competent and demonstrates normal augmentation. augmentation. T/P Trunk is compressible. T/P Trunk is compressible. PTV is compressible. PTV is compressible. RT PerV is compressible. LT PerV is compressible. Procedure This is a venous duplex using B-mode, color flow and spectral Doppler. Exam performed in department. A preliminary report was called and/or faxed to Beto. VL/Venous Duplex US - Charles Extrem Interpretation Summary Deep veins of the lower extremities are bilaterally patent and compressible seg mentally. There is no evidence of deep vein thrombosis on either side. Valvular competence appears in tact within the proximal deep venous systems bilaterally. The great saphenous veins appear bila terally patent and compressible segmentally. Ordering Physician: Mayra Pérez Referring Physician: Lilliana Mishra M.D. Performed By: Marisabel Juarez RVT and Student
== END ==
PROVIDERS: PCP Internal Medicine; Referring Provider Internal Medicine; Visit Provider Internal Medicine
DX: R60.0 Localized edema (principal)
CPT/HCPCS: 93970

== ENCOUNTER → 2021-11-12 | Outpatient (CLI) | payer MEDICARE, SELFPAY ==
[2021-11-12 15:02] LABS: Color, Urine Yellow (Yellow); Glucose, Dipstick Normal (Normal); Ketone-Dipstick Negative (Negative); Leukocyte Esterase-Dipstick 100 /ul (Negative); Nitrite-Dipstick Negative (Negative); Occult Blood-Urine 10 /ul (Negative); Protein-Dipstick Negative (Negative); Urine Bilirubin Dipstick Negative (Negative); Urine Clarity Clear (Clear); Urine Urobilinogen Normal (Normal)
[2021-11-12 15:12] LABS: Vitamin B12 647 pg/mL (211-911); Vitamin D,25 Hydroxy 73.3 ng/mL
[2021-11-12 15:18] LABS: AST(SGOT) 14 U/L (15-37); Alanine Aminotransfer ALT/SGPT 26 U/L (13-56); Albumin, Serum 3.5 g/dL (3.2-5.0); Alkaline Phosphatase 63 U/L (45-117); Anion Gap 5 (5-15); BUN 15 mg/dL (7-18); BUN/Creat Ratio 23.6 RATIO (10-20); Calcium,Total 8.9 mg/dL (8.5-10.1); Chloride 104 mmol/L (98-107); Cholesterol 238 mg/dL (200); Creatinine, Serum 0.64 mg/dL (0.55-1.02); EST Glomerular Filtration Rate 98 mL/min (>60); Est Glom Filt Rate - Afr Amer 119 mL/min (>60); Globulin 3.4 g/dL (2.2-4.2); Glucose 87 mg/dL (74-106); High Density Lipoprotein 48 mg/dL; Magnesium 2.2 mg/dL (1.6-2.6); Potassium 3.7 mmol/L (3.5-5.1); Protein, Total 6.9 g/dL (6.4-8.2); Sodium Level 140 mmol/L (136-145); Thyroid Stim Hormone (TSH) 2.56 uIU/mL (0.358-3.74); Triglycerides 195 mg/dL; Very Low Density Lipoprotein 39 mg/dL (5-40)
[2021-11-12 17:58] LABS: Hematocrit 41.5 % (37-47); Mean Corp Hgb Conc 33.7 g/dL (32-36); Mean Corpuscular Hgb 33.1 pg (27.0-32.0); Mean Corpuscular Volume 98.1 fL (81-99); Mean Platelet Vol. 9.4 fl (6.2-12.0); Platelet Count 231 K/mm3 (150-450); RBC Distribution Width CV 13.2 % (11.6-14.6); RBC Distribution Width SD 47.1 fl (35.1-43.9); Red Blood Count 4.23 M/mm3 (4.2-5.4); White Blood Count 6.6 K/mm3 (4.4-11.0)
== END | disposition home or self-care (01) ==
PROVIDERS: PCP Internal Medicine; Referring Provider Internal Medicine; Visit Provider Internal Medicine
DX: R41.3 Other amnesia (principal); E78.2 Mixed hyperlipidemia; E55.9 Vitamin D deficiency, unspecified; I10 Essential (primary) hypertension
CPT/HCPCS: 36415; 80053; 80061; 81002; 82306; 82607; 83735; 84443; 85027

== ENCOUNTER → 2022-01-04 | Outpatient (CLI) | payer MEDICARE, SELFPAY ==
--- NOTE | 2022-01-04 12:54 | CDU_ITS ---
Reason For Study: Word Finding Difficulty Rt. Velocities/BP Lt. Velocities/BP Prox CCA 67/9 cm/sec. Prox CCA 89/16 cm/sec. Mid CCA 54/10 cm/sec. Mid CCA 64/16 cm/sec. Dist CCA 54/15 cm/sec. Dist CCA 62/16 cm/sec. Prox ICA 70/16 cm/sec. Prox ICA 52/15 cm/sec. Mid ICA 80/19 cm/sec. Mid ICA 48/15 cm/sec. Dist ICA 83/27 cm/sec. Dist ICA 50/14 cm/sec. Rt. ICA/CCA = 1.5. Lt. ICA/CCA = 0.8. Prox ECA 103/8 cm/sec. Prox ECA 71/12 cm/sec. Rt. Vert. 42/13 cm/sec. Lt. Vert. 38/10 cm/sec. Right Extracranial There is intimal thickening but no significant atherosclerotic plaque noted in the right common carotid artery. There is intimal thickening but no significant atherosclerotic plaque noted in the right internal carotid artery. There is intimal thickening but no significant atherosclerotic plaque noted in the right external carotid artery. Antegrade flow is noted in the right vertebral artery. Left Extracranial There is intimal thickening but no significant atherosclerotic plaque noted in the left common carotid artery. There is intimal thickening but no significant atherosclerotic plaque noted in the left internal carotid artery. There is intimal thickening but no significant atherosclerotic plaque noted in the left external carotid artery. Antegrade flow is noted in the left vertebral artery. Procedure Carotid Duplex 71081. This is a Carotid Duplex examination using B-mode, color flow and specral Doppler. Exam performed in department. VL/Carotid Duplex Ultrasound Interpretation Summary Intimal thickening of the proximal right internal carotid artery with less than 50% stenosis Less than 50% stenosis right external carotid artery Intimal thickening of the left internal carotid artery with less than 50% steno sis Less than 50% stenosis left external carotid artery Patent and antegrade vertebral arteries bilaterally Ordering Physician: Lilliana Mishra Referring Physician: Lilliana Mishra Performed By: Dorothy Gautam, MARCELA, RVT
== END | disposition home or self-care (01) ==
LOC: CVS 12:52
PROVIDERS: PCP Internal Medicine; Referring Provider Internal Medicine; Visit Provider Internal Medicine
DX: R47.89 Other speech disturbances (principal)
CPT/HCPCS: 93880

== ENCOUNTER → 2022-01-11 | Outpatient (CLI) | payer MEDICARE, SELFPAY ==
--- NOTE | 2022-01-11 12:58 | CT_ITS ---
STUDY: CT BRAIN WITH AND WITHOUT CONTRAST REASON FOR EXAM: Female, 71 years old. WORD FINDING DIFF RADIATION DOSAGE (If Supplied By Facility): CTDIvol = ( 44.99 ) mGy, DLP = ( 1580.97 ) mGycm TECHNIQUE: Transaxial CT imaging of the brain was performed pre and post contrast administration. The examination was performed with intravenous administration of IV 50mL Isovue-370. Individualized dose optimization techniques were used for this CT. COMPARISON: Comparison is made with prior study of 05/17/2020. FINDINGS: Normal soft tissue structures. Normal calvarium. There is mild cerebral atrophy with widening of the extra-axial spaces and ventricular dilatation. Normal white matter tracts of the cerebral hemispheres. Normal basal ganglia and thalami. Normal brainstem. Normal cerebellum. There is no intracranial hemorrhage. There are no findings of an acute ischemic infarction. Opacification of the left maxillary sinus with calcifications suggestive of chronic sinusitis. Partial opacification of the left ethmoid sinus. Nodular mucosal thickening along the inferior medial aspect of the right maxillary sinus. CT/Brain/Head W/WO Contrast IMPRESSION: Chronic involutional changes of the brain. Findings suggestive of chronic left maxillary sinusitis. Electronically Signed: Hi Shannon MD at 13:37 EDT ,
[2022-01-11 13:26] LABS: CREATININE FINGERSTICK < 0.9 mg/dL (0.55-1.02); EGFR FINGERSTICK > 60.0000 mL/min (>60)
== END | disposition home or self-care (01) ==
PROVIDERS: PCP Internal Medicine; Referring Provider Internal Medicine; Visit Provider Internal Medicine
DX: R47.89 Other speech disturbances (principal)
CPT/HCPCS: 70470; Q9967

== ENCOUNTER → 2022-01-25 | Outpatient (CLI) | payer MEDICARE, SELFPAY ==
--- NOTE | 2022-01-25 14:03 | ECHOD_ITS ---
Reason For Study: WHEEZING Procedure This was a 2D Doppler, Color Flow transthoracic echocardiogram. Exam performed in department. Left Ventricle Normal LV size. Left ventricular systolic function is normal. The estimated ejection fraction is 60 %. Stage 1 diastolic dysfunction. No regional wall motion abnormalities noted. Right Ventricle Normal RV size. Normal systolic function. Atria Normal left atrium. Normal right atrium. Mitral Valve Normal mitral valve. Tricuspid Valve Normal tricuspid valve. No tricuspid valve insufficiency. Aortic Valve Trisinus/trileaflet aortic valve. Mild focal aortic valve calcification. Pulmonic Valve Normal pulmonic valve. Great Vessels Normal aortic root. The pulmonary artery is normal size. Normal inferior vena cava. Pericardium/Pleural No pericardial effusion. MMode/2D Measurements & Calculations LVIDd: 4.4 cm IVSd: 0.78 cm Ao root diam: 3.0 cm LVIDs: 3.0 cm LVPWd: 0.77 cm RVDd: 3.1 cm FS: 31.1 % LAV(MOD-bp): 57.9 ml LVAd ap4: 26.0 cm2 SV(MOD-sp4): 52.6 ml LAV(MOD-bp) Indexed: 29.3 ml/m2 LVLd ap4: 7.2 cm LAV(MOD-sp2): 65.4 ml EDV(MOD-sp4): 78.4 ml LAV(MOD-sp4): 44.7 ml EDV(sp4-el): 79.3 ml LVAs ap4: 13.1 cm2 LVLs ap4: 5.5 cm ESV(MOD-sp4): 25.8 ml ESV(sp4-el): 26.6 ml EF(MOD-sp4): 67.1 % EF(sp4-el): 66.5 % SV(sp4-el): 52.7 ml LA A4 area: 18.5 cm2 LA dimension(2D): 4.3 cm RA A4 area: 14.8 cm2 Time Measurements MV dec time: 0.15 sec Doppler Measurements & Calculations MV E max garrett: 70.5 cm/sec Lat Peak E' Garrett: 9.5 cm/sec Med Peak E' Garrett: 8.1 cm/sec MV A max garrett: 91.8 cm/sec E/E' lat: 7.4 E/E' med: 8.7 MV E/A: 0.77 MV V2 max: 86.0 cm/sec Ao V2 max: 128.7 cm/sec MV max P.0 mmHg MV dec slope: 465.1 cm/sec2 Ao max P.6 mmHg MV V2 mean: 62.1 cm/sec Ao V2 mean: 88.2 cm/sec MV mean P.6 mmHg Ao mean P.5 mmHg MV V2 VTI: 32.4 cm Ao V2 VTI: 29.5 cm LV V1 max: 118.8 cm/sec PA V2 max: 94.5 cm/sec LV V1 max P.7 mmHg PA V2 mean: 62.9 cm/sec LV V1 mean P.0 mmHg LV V1 mean: 80.7 cm/sec LV V1 VTI: 26.5 cm ECHO/Echo Complete Interpretation Summary Normal LV size. Left ventricular systolic function is normal. The estimated ejection fraction is 60 %. Stage 1 diastolic dysfunction. Ordering Physician: Lilliana Mishra Referring Physician: Lilliana Mishra M.D. Performed By: Catalina Mccall RCS
== END | disposition home or self-care (01) ==
LOC: CVS 14:01
PROVIDERS: PCP Internal Medicine; Visit Provider Internal Medicine
DX: R47.89 Other speech disturbances (principal); I51.9 Heart disease, unspecified
CPT/HCPCS: 93306

== ENCOUNTER → 2022-11-25 | Outpatient (CLI) | payer MEDICARE, SELFPAY ==
--- NOTE | 2022-11-25 15:48 | NEURO ---
NCS and/or EMG Patient Report Ordering Doctor: Lilliana Mishra DATE OF SERVICE: 11/25/22 Findings: Nerve conduction studies were performed in the right and left lower extremities. The right peroneal motor study recording the extensor digitorum brevis showed a normal amplitude, normal distal latency and normal conduction velocity. No conduction block or focal slowing was present across the fibular neck. The right tibial motor study recording the abductor hallucis brevis showed a normal amplitude, normal distal latency and normal conduction velocity. The right sural sensory response showed a normal amplitude and conduction velocity. The right superficial peroneal sensory response showed a normal amplitude and conduction velocity. The left peroneal motor study recording the extensor digitorum brevis showed a normal amplitude, normal distal latency and normal conduction velocity. No conduction block or focal slowing was present across the fibular neck. The left tibial motor study recording the abductor hallucis brevis showed a normal amplitude, normal distal latency and normal conduction velocity. The left sural sensory response showed a normal amplitude and conduction velocity. The left superficial peroneal sensory response showed a normal amplitude and conduction velocity. Needle EMG of the right lower extremity muscles was performed. No denervation was present in any muscle. All motor unit morphology, activation and recruitment patterns were normal. Impression: This is a mildly abnormal study. There is electrophysiologic evidence suggestive, but not diagnostic of a mild, chronic, right L5 radiculopathy. There was no electrophysiologic evidence of plexopathy, entrapment neuropathy or peripheral neuropathy. Jaya Rose D.O. Multi Select Codes Neurology Neurology Interp Codes: 30865-91 Musc test done w/n test comp (interp) and 05724-88 Nrv cndj test 7-8 studies (interp)
== END | disposition home or self-care (01) ==
LOC: PSN 14:31
PROVIDERS: PCP Internal Medicine; Referring Provider Internal Medicine; Visit Provider Internal Medicine
DX: R53.1 Weakness (principal)
CPT/HCPCS: 95886; 95910

== ENCOUNTER → 2022-12-24 | Outpatient (CLI) | payer MEDICARE, SELFPAY ==
--- NOTE | 2022-12-24 15:56 | RAD_ITS ---
STUDY: X-RAY CHEST REASON FOR EXAM: Female, 72 years old. SOB TECHNIQUE: PA and lateral views of the chest. COMPARISON: None. FINDINGS: The lungs are clear and expanded. There is no demonstrated pleural abnormality. Normal size heart. Normal mediastinum and loren. Normal visualized pulmonary arteries. There is atherosclerotic calcification of the aortic arch with tortuosity. There are diffuse degenerative changes of the visualized thoracic spine. Diffuse osteopenia. There is no demonstrated abnormality of the visualized soft tissue structures of the upper abdomen. RAD/Chest PA and Lateral IMPRESSION: No acute cardiopulmonary disease. Electronically Signed: Kathryn León MD at 19:14 EDT ,
== END | disposition home or self-care (01) ==
LOC: MTRAD 15:55
PROVIDERS: PCP Internal Medicine; Referring Provider Internal Medicine Pulmonary Disease; Visit Provider Internal Medicine Pulmonary Disease
DX: R06.02 Shortness of breath (principal)
CPT/HCPCS: 71046

== ENCOUNTER → 2024-01-30 | Outpatient (CLI) | payer MEDICARE, SELFPAY ==
--- NOTE | 2024-01-30 15:26 | VDLE_ITS ---
Reason For Study: Left leg pain RIGHT LEFT CFV is compressible, spontaneous, phasic, GSV is normal. competent and demonstrates normal CFV is compressible, spontaneous, phasic, augmentation. competent, and demonstrates normal Procedure augmentation. This is a venous duplex using B-mode, color FV is compressible, spontaneous, phasic, flow and spectral Doppler. competent and demonstrates normal Exam performed in department. augmentation. A preliminary report was called and/or faxed POP V is compressible, spontaneous, phasic, to Dr. Mishra. competent and demonstrates normal augmentation. T/P Trunk is compressible. PTV is compressible. LT PerV is compressible. VL/Venous Duplex US, Unilateral Interpretation Summary Deep veins of the left lower extremity are patent and compressible segmentally. There is no evidence of left lower extremity deep vein thrombosis. Valvular competence appears intac t within the proximal deep venous system on the left . The left great saphenous vein appears patent a nd compressible segmentally. The right common femoral vein is patent and compressible . Ordering Physician: Lilliana Mishra Referring Physician: Lilliana Mishra Performed By: Marisabel Juarez RVT
== END | disposition home or self-care (01) ==
LOC: CVS 15:25
PROVIDERS: PCP Internal Medicine; Referring Provider Internal Medicine; Visit Provider Internal Medicine
DX: M79.662 Pain in left lower leg (principal)
CPT/HCPCS: 93971

== ENCOUNTER → 2024-02-10 | Outpatient (CLI) | payer MEDICARE, SELFPAY ==
--- NOTE | 2024-02-09 | LES_PTH ---
PATIENT: MARILUZ GUTIERREZ [facility] U#:[id number] AGE/SX: 73/F ROOM: RE02/10/[address]: Dr. uLis Soria MD : [id number] BED: DIS: 02/10/2024 SPEC #: [id number] RECD: 02/10/24 09:42 STATUS: YONNY REQ #: [id number] MARTHA: 02/09/24 00:[address]: Luis Soria DEPT: SURGICAL PATHOLOGY RECD BY: Samia Stubbs ENTERED: 02/10/24 13:20 SP TYPE: Lesion OTHR DR: Dr. Lilliana Mishra, DO Tissues: Skin of eyelid, NOS Procedures: Surgery Specimen Level IV HEADER OPERATION: Left lower lid PRE-OP DIAGNOSIS: Lesion of left lower eyelid TISSUE SUBMITTED: Left lower eyelid MICROSCOPIC DIAGNOSIS Lesion of left lower eyelid, biopsy: Polypoid seborrheic keratosis. AM.mr 02/11/2024 MICROSCOPIC DESCRIPTION Slides are reviewed. GROSS DESCRIPTION Received in fixative is one container labeled with the patient's name and designated Left lower eyelid. The specimen consists of an irregular fragment of prince tissue measuring 0.2 x 0.1 x <0.1cm. The specimen is submitted in its entirety in one cassette. AM. 02/10/2024 TC:1 CPT:68949
== END | disposition home or self-care (01) ==
LOC: LABSPEC 09:49
PROVIDERS: PCP Internal Medicine; Referring Provider Ophthalmology; Visit Provider Ophthalmology
DX: L82.1 Other seborrheic keratosis (principal)
CPT/HCPCS: 88305

== ENCOUNTER → 2024-04-22 | Outpatient (CLI) | payer MEDICARE, SELFPAY ==
--- NOTE | 2024-04-22 09:48 | US_ITS ---
PROCEDURE: ABD LIMITED W/ ELASTOGRAPHY REASON FOR EXAM: Fatty infiltration of the liver. COMPARISON: Comparison is made with prior study dated April 01, 2018. TECHNIQUE: Right upper quadrant abdominal ultrasound. Med ElastQ Imaging shear wave elastography for non-invasive assessment of liver tissue stiffness. [employer] EPIQ Elite. FINDINGS: LIVER: Size: Unremarkable Length: 17.9 cm Echotexture: Diffusely echogenic suggesting fatty infiltration Contour: Normal Lesions: None identified Elastography: EQI Med: 7.63 kPa EQI Med Garrett: 1.59 m/s IQR/Med: 20 %* GALLBLADDER: Normal COMMON BILE DUCT: Normal and measures 3 mm. PANCREAS: Normal Visualized portions of the right kidney are unremarkable. No right upper quadrant ascites. US/ABD Limited w/ Elastography IMPRESSION: NO TO MILD HEPATIC FIBROSIS Reference Values: SRU <1.37 m/s (5.7kPa): No to mild fibrosis 1.37 m/s - 2.2 m/s: Moderate to severe fibrosis >2.2 m/s (15kPa): Significant fibrosis / cirrhosis METAVIR Score F2 or higher: 1.34 m/s (5.7kPa) F3 or higher: 1.55 m/s (7.3kPa) F4: 1.80 m/s (10kPa) * If the IQR/Med is >30%, the variance in the measurements is a large and the a ccuracy of the measurement may be in question. Reading Location: [id number]
== END | disposition home or self-care (01) ==
LOC: US 09:47
PROVIDERS: PCP Internal Medicine; Referring Provider Internal Medicine; Visit Provider Internal Medicine
DX: K76.0 Fatty (change of) liver, not elsewhere classified (principal)
CPT/HCPCS: 76705; 76981

== ENCOUNTER → 2024-04-28 | Outpatient (CLI) | payer MEDICARE, SELFPAY ==
--- NOTE | 2024-04-28 14:05 | CDU_ITS ---
Reason For Study Reason For Study: Dizziness Rt. Velocities/BP Lt. Velocities/BP Prox CCA 62.5/14.2 cm/sec. Prox CCA 96.3/21.5 cm/sec. Mid CCA 79.8/16.0 cm/sec. Mid CCA 62.2/20.4 cm/sec. Dist CCA 71.0/14.9 cm/sec. Dist CCA 72.1/21.5 cm/sec. Prox ICA 66.6/15.0 cm/sec. Prox ICA 63.6/23.0 cm/sec. Mid ICA 87.9/28.4 cm/sec. Mid ICA 58.6/20.3 cm/sec. Dist ICA 114.3/32.1 cm/sec. Dist ICA 121.6/33.4 cm/sec. Rt. ICA/CCA = 1.4. Lt. ICA/CCA = 2.0. Prox ECA 73.2/10.6 cm/sec. Prox ECA 83.4/11.1 cm/sec. Rt. Vert. 61.4/17.5 cm/sec. Lt. Vert. 33.9/9.7 cm/sec. Right Extracranial There is intimal thickening but no significant atherosclerotic plaque noted in the right common carotid artery. There is intimal thickening but no significant atherosclerotic plaque noted in the right internal carotid artery. There is intimal thickening but no significant atherosclerotic plaque noted in the right external carotid artery. Antegrade flow is noted in the right vertebral artery. Left Extracranial There is homogeneous, smooth atherosclerotic plaque noted in the left common carotid artery. There is intimal thickening but no significant atherosclerotic plaque noted in the left internal carotid artery. There is intimal thickening but no significant atherosclerotic plaque noted in the left external carotid artery. Antegrade flow is noted in the left vertebral artery. Procedure Carotid Duplex 11116. This is a Carotid Duplex examination using B-mode, color flow and specral Doppler. The exam was diagnostic. Exam performed in department. VL/Carotid Duplex Ultrasound Interpretation Summary Normal right extracranial internal carotid. Normal left extracranial internal carotid. Patent and antegrade vertebrals bilaterally. Ordering Physician: Lilliana Mishra Referring Physician: Lilliana Mishra Performed By: Ron Montenegro RVT
== END | disposition home or self-care (01) ==
LOC: CVS 14:04
PROVIDERS: PCP Internal Medicine; Referring Provider Internal Medicine; Visit Provider Internal Medicine
DX: R26.89 Other abnormalities of gait and mobility (principal)
CPT/HCPCS: 93880

== ENCOUNTER → 2024-05-04 | Outpatient (CLI) | payer MEDICARE, SELFPAY ==
--- NOTE | 2024-05-04 15:11 | CT_ITS ---
PROCEDURE: CT right lower extremity without IV contrast REASON FOR EXAM: Pain, arthritis, preoperative planning TECHNIQUE: Multiple contiguous axial images through the right knee were obtained without the administration of intravenous contrast. Axial images through the right hip and right ankle were also obtained. Two- dimensional coronal and sagittal reformatted images were reconstructed. Low-dose imaging technique was utilized. COMPARISON: None FINDINGS: See impression CT/Extremity Lower without Contra IMPRESSION: Advanced tricompartmental right knee osteoarthritis, greatest in the lateral an d patellofemoral compartments including near [id number] articulation and marginal osteophytes. Small right knee joint eff usion. Negative for fracture or subluxation. Mild thickening of the distal Achilles tendon consistent with tendinopathy. Mi ld diffuse lower extremity subcutaneous edema. Limited axial images of the right hip demonstrate mild osteoarthritis. One or more dose reduction techniques were used (e.g., Automated exposure contr ol, adjustment of the mA and/or kV according to patient size, use of iterative reconstruction technique). Reading Location: [facility]
== END | disposition home or self-care (01) ==
LOC: CT 15:10
PROVIDERS: PCP Internal Medicine; Referring Provider Orthopaedic Surgery; Visit Provider Orthopaedic Surgery
DX: M17.0 Bilateral primary osteoarthritis of knee (principal)
CPT/HCPCS: 73700

== ENCOUNTER 2024-05-18 18:38 | Observation (INO) | payer MEDICARE, SELFPAY ==
--- NOTE | 2024-05-07 08:38 | EKG12_ITS ---
Test Reason : PREOP Blood Pressure : */* mmHG Vent. Rate : 63 BPM Atrial Rate : 63 BPM P-R Int : 166 ms QRS Dur : 72 ms QT Int : 424 ms P-R-T Axes : 39 -8 20 degrees QTcB Int : 433 ms Normal sinus rhythm Normal ECG No previous ECGs available Confirmed by Fernando Santamaria ([id number]), scientific publications editor FOZIA NICHOLS ([id number]) on 05/10/2024 10:44:30 AM Referred By: Jose Francisco Mejia Confirmed By: Fernando Santamaria
[2024-05-07 09:16] LABS: Absolute Lymphocyte Count 1.48 X10^3/uL (0.83-4.51); Absolute Neutrophil Count 2.9 X10^3/uL (2.0-7.7); Basophil# 0.04 X10^3/uL; Basophil% 0.8 % (0-1); Hematocrit 38.5 % (37-47); Hemoglobin 12.8 g/dL (12.0-15.0); Lymphocyte # 1.48 X10^3/ul (0.83-4.51); Lymphocyte % 29.9 % (19-41); Mean Corp Hgb Conc 33.2 g/dL (32-36); Mean Corpuscular Hgb 31.4 pg (27.0-32.0); Mean Corpuscular Volume 94.4 fL (81-99); Monocyte# 0.41 X10^3/uL; Monocyte% 8.3 % (0-10); NRBC Flagged by Analyzer 0 % (0-5); Neutrophil % 58.6 % (47-70); Platelet Count 223 K/mm3 (150-450); RBC Distribution Width CV 15.2 % (11.6-14.6); RBC Distribution Width SD 52.9 fl (35.1-43.9); Red Blood Count 4.08 M/mm3 (4.2-5.4)
[2024-05-07 09:30] LABS: International Normalized Ratio 0.9; Prothrombin Time (Protime)PT. 12.7 SECONDS (11.7-14.9)
[2024-05-07 09:31] LABS: Partial Thromboplast Time 27.9 Seconds (24.1-36.2)
[2024-05-07 09:39] LABS: Hemoglobin A1c 5.3 % (3.8-5.6)
[2024-05-07 09:43] LABS: Anion Gap 4 (5-15); BUN 15 mg/dL (7-18); BUN/Creat Ratio 26.8 RATIO (10-20); Calcium,Total 9.1 mg/dL (8.5-10.1); Chloride 108 mmol/L (98-107); Creatinine, Serum 0.56 mg/dL (0.55-1.02); EST Glomerular Filtration Rate 113 mL/min (>60); Est Glom Filt Rate - Afr Amer 136 mL/min (>60); Glucose 92 mg/dL (74-106); Sodium Level 140 mmol/L (136-145)
[2024-05-07 11:07] LABS: Magnesium 2.4 mg/dL (1.6-2.6)
--- NOTE | 2024-05-07 12:54 | PAT.ANESEVAL ---
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 When Was Last Pacemaker Check QUESTION #4 FULL TEXT: You/Your Family Experience fever (hyperthermia) with Anesthesia Last Oral Intake Last Oral intake: Last Oral Intake NPO since Meds taken in AM with sips of water? Meds patient instructed to take am of surgery PONV PONV - traffic superintendent: PONV - traffic superintendent Female Yes 05/04/24 09:12 HX of Motion Sickness Yes 05/04/24 09:12 HX of N/V After Surgery Yes 05/04/24 09:12 Non-Smoker Yes 05/04/24 09:12 Duration of Surgery greater Yes 05/04/24 09:12 than 60 minutes Number of Risk Factors 5 05/04/24 09:12 PONV Score Severe Risk 05/04/24 09:12 Height & Weight Height & Weight: Anesthesia: Height & Weight Height 5 ft 5 in 09/22/23 10:00 Respiratory Assessment Respiratory Assessment - traffic superintendent: Respiratory Tract Infection Hx - traffic superintendent Hx Respiratory Tract Infection No 05/04/24 09:12 STOP Sleep Apnea STOP Sleep Apnea - traffic superintendent: STOP Sleep Apnea - traffic superintendent Hx Hypertension Yes: CONTROLLED WITH MED 05/04/24 09:12 Hx Sleep Apnea Yes 05/04/24 09:12 CPAP Yes 05/04/24 09:12 BIPAP No 05/04/24 09:12 Do you snore loudly (louder than talking or can be heard Do you often feel tired/ fatigued/ sleepy during daytime? Has anyone observed you stop breathing during sleep? STOP Results Positive 05/04/24 09:12 QUESTION #5 FULL TEXT : Do you snore loudly (louder than talking or can be heard through closed doors)? 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 Specify any problems Hx of Preganancy in last 3 N/A 05/04/24 09:12 Months Nurse Filling Out Transfusion [facility] 05/04/24 09:12 & Questions: Date: 05/04/24 05/04/24 09:12 Time: 09:14 05/04/24 09:12 Patient unable to answer at this time (ie. confused, unrespo /Reproduction History /Reproductive History - traffic superintendent: /Reproductive Hx- traffic superintendent Hx Now No 05/04/24 09:12 Gestational Age (in weeks): EDC: Hx Hx Para Hx Section SAB No 05/04/24 09:12 PFSH Medical History Depression Cancer Wears glasses Hypothyroid Thyroid disease Arthritis Bladder disease Fatty liver High cholesterol GERD (gastroesophageal reflux disease) History of edema CPAP (continuous positive airway pressure) dependence Sleep apnea Non-smoker Hypertension Nutcracker esophagus History of echocardiogram History of stress test Sacral nerve stimulator present PONV (postoperative nausea and vomiting) Home Medications ?Medication ?Instructions ?Recorded ?Last Taken ?Type escitalopram oxalate 5 mg tablet 5 mg PO DAILY 07/11/14 Unknown History levothyroxine 25 mcg tablet 25 mcg PO DAILY 07/11/14 Unknown History valacyclovir 500 mg tablet 500 mg PO DAILY 05/08/18 Unknown History acetylcysteine 600 mg capsule (NAC) 600 mg PO DAILY 09/22/23 Unknown History amlodipine 5 mg tablet 5 mg PO QDAY 09/22/23 Unknown History antiarthritic combination no.2 900 900 mg PO DAILY 09/22/23 Unknown History mg tablet (glucosamine-chondroitin) ascorbate calcium (vitamin C) 500 500 mg PO DAILY 09/22/23 Unknown History mg tablet magnesium 200 mg tablet 200 mg PO DAILY 09/22/23 Unknown History omega 1-khm-rig-fish oil 300 1 cap PO DAILY 09/22/23 Unknown History mg-1,000 mg capsule (Fish Oil) pantoprazole 40 mg tablet,delayed 40 mg PO QDAY 09/22/23 Unknown History release quercetin 500 mg capsule 500 mg PO DAILY 09/22/23 Unknown History turmeric 400 mg capsule 400 mg PO DAILY 09/22/23 Unknown History vitamin B complex 1 tab PO DAILY 09/22/23 Unknown History zinc acetate 25 mg (zinc) capsule 25 mg PO DAILY 09/22/23 Unknown History ascorbic acid 30 mg-collagen, 1 tab PO DAILY 05/04/24 Unknown History hydrolyzed 833.3 mg tablet (Collagen Skin Renewal) dorzolamide 22.3 mg-timolol 6.8 1 drp ophthalmic (eye) BID 05/04/24 Unknown History mg/mL eye drops Allergy/AdvReac Type Severity Reaction Status Date / Time nitrous oxide Allergy Mild Unknown Verified 05/05/24 14:09 cat dander Allergy Other Verified 05/05/24 14:09 Environmental Allergies: Allergy Other Verified 05/05/24 14:09 Uncoded (pine) Seasonal Allergies: Uncoded Allergy Other Verified 05/05/24 14:09 (environmental) Family History Other CVA (cerebral vascular accident) Cancer Diabetes Surgical History History of foot surgery History of vein stripping H/O eye surgery History of esophagogastroduodenoscopy (EGD) (~05/11/18) Social History household members: spouse Smoking Status: Never smoker alcohol intake: current alcohol intake frequency: a few times a month Audit: Pertinent Findings Pertinent Findings EKG Perinent findings: > 6 months old Echo (EF%) pertinent findings: Unremarkable Recommendation Anesthesia Recommendation Anesthesia recommendation: F/U recommended Follow up Details [facility]adiac/Pulmonary Imaging Recommendation: Yes [facility]adiac/Pulmonary Imaging Rec Details: 12 Lead ECG
[2024-05-08 06:08] LABS: Fructosamine 184 umol/L (0-285)
[2024-05-18] VITALS (17 sets, daily range): BP systolic 99–142; BP diastolic 51–84; PULSE 53–79; RESP 14–18; TEMP 36.1–37; O2SAT 92–97; BMI 35.5; BMI 35.4
[2024-05-18] MEDS: Acetaminophen 500 MG Tablet 1000 MG PO ×3 (10:30→22:57)
[2024-05-18] MEDS: Celecoxib 200 MG Capsule 400 MG PO (10:30)
[2024-05-18] MEDS: 0.9% Normal Saline (1000mL) 1,000 ML 15 ML IV (10:30)
[2024-05-18] MEDS: Magnesium 1 GM over 15 mins IV (10:31)
[2024-05-18] MEDS: Gabapentin 600 MG Tablet PO (10:31)
[2024-05-18] MEDS: Scopolamine 1mg/72hr Patch 1 PATCH TD (10:31)
[2024-05-18 10:55] LABS: Bedside Glucose 81 mg/dL (74-106)
--- NOTE | 2024-05-18 11:00 | PCM.PRE.AN2 ---
ASA Classification* ASA Classification ASA Classification: 2 Assessment & Plan Anesthesia* Anesthesia Assessment Anesthesia Assessment: Discussed sedation and/or anesthesia options, risks, benefits, and alternatives with patient/parents/legal guardian/POA. Questions invited. The patient/parents/legal guardian/POA seems to understand and agrees to proceed with anesthesia plan. Reviewed the physical assessment, medical history, allergy history and patient home medications list prior to surgery/procedure/anesthetic and documented any changes. Performed airway and anesthesia risk assessments. Anesthesia Type Anesthesia Type: Spinal and Block (Patient is consented for adductor canal block.) History Source History Obtained from:: Patient and Chart Anesthesia Focused Assessment* Temperature: 97.0 F Pulse Rate: 68 Blood Pressure: 111/63 Respiratory Rate: 18 Pulse Ox: 95 Airway Assessment Mouth opens: >3 cm Mallampati Score: II Teeth Condition: Caps/Crowns (Patient has 2 crowns and an implant. They are all tight.) Neck Range of motion (ROM): Full ROM Focused Labs Anesthesia Preop lab: CBC WBC 5.0 K/mm3 (4.4-11.0) 05/07/24 08:51 05/07/24 RBC 4.08 M/mm3 (4.2-5.4) L 05/07/24 08:51 05/07/24 Hgb 12.8 g/dL (12.0-15.0) 05/07/24 08:51 05/07/24 Hct 38.5 % (37-47) 05/07/24 08:51 05/07/24 Plt Count 223 K/mm3 (150-450) 05/07/24 08:51 05/07/24 CHEMISTRY Potassium 4.0 mmol/L (3.5-5.1) 05/07/24 08:51 05/07/24 Sodium 140 mmol/L (136-145) 05/07/24 08:51 05/07/24 Magnesium 2.4 mg/dL (1.6-2.6) 05/07/24 08:51 05/07/24 BUN 15 mg/dL (7-18) 05/07/24 08:51 05/07/24 Creatinine 0.56 mg/dL (0.55-1.02) 05/07/24 08:51 05/07/24 Glucose 92 mg/dL (74-106) 05/07/24 08:51 05/07/24 POC Glucose 81 mg/dL (74-106) 05/18/24 10:20 05/18/24 TSH 1.580 uIU/mL (0.358-3.740) 05/07/24 08:51 05/07/24 COAG PT 12.7 SECONDS (11.7-14.9) 05/07/24 08:51 05/07/24 Pre-Assessment Diagnosis/Proposed Procedure Planned Operative Procedure(s): (R) ERAS, Right Total Knee Replacement Robotic Arm Assisted Anesthesia History 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 When Was Last Pacemaker Check QUESTION #4 FULL TEXT: You/Your Family Experience fever (hyperthermia) with Anesthesia Last Oral Intake Last Oral intake: Last Oral Intake NPO since 07:30 05/18/24 10:19 Meds taken in AM with sips of Yes 05/18/24 10:19 water? Meds patient instructed to see medlist 05/18/24 10:19 take am of surgery Any additional information?: Yes NPO since: 07:30 (Patient took her Ensure at 7:30 AM.) Meds taken in AM with sips of water?: Yes PONV PONV - reproductive healthcare assistant: PONV - reproductive healthcare assistant Female Yes 05/04/24 09:12 HX of Motion Sickness Yes 05/04/24 09:12 HX of N/V After Surgery Yes 05/04/24 09:12 Non-Smoker Yes 05/04/24 09:12 Duration of Surgery greater Yes 05/04/24 09:12 than 60 minutes Number of Risk Factors 5 05/04/24 09:12 PONV Score Severe Risk 05/04/24 09:12 Height & Weight Height & Weight: Anesthesia: Height & Weight Height 5 ft 5 in 05/18/24 10:19 Weight: 96.8 kg 05/18/24 10:19 Body Mass Index (BMI) 35.5 05/18/24 10:19 Respiratory Assessment Respiratory Assessment - reproductive healthcare assistant: Respiratory Tract Infection Hx - reproductive healthcare assistant Hx Respiratory Tract Infection No 05/05/24 12:50 STOP Sleep Apnea STOP Sleep Apnea - reproductive healthcare assistant: STOP Sleep Apnea - reproductive healthcare assistant Hx Hypertension Yes: CONTROLLED WITH MED 05/05/24 12:50 Hx Sleep Apnea Yes 05/05/24 12:50 CPAP Yes 05/05/24 12:50 BIPAP No 05/05/24 12:50 Do you snore loudly (louder than talking or can be heard Do you often feel tired/ fatigued/ sleepy during daytime? Has anyone observed you stop breathing during sleep? STOP Results Positive 05/04/24 09:12 QUESTION #5 FULL TEXT : Do you snore loudly (louder than talking or can be heard through closed doors)? 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 Specify any problems Hx of Preganancy in last 3 N/A 05/04/24 09:12 Months Nurse Filling Out Transfusion [facility] 05/04/24 09:12 & Questions: Date: 05/04/24 05/04/24 09:12 Time: 09:14 05/04/24 09:12 Patient unable to answer at this time (ie. confused, unrespo /Reproduction History /Reproductive History - reproductive healthcare assistant: /Reproductive Hx- reproductive healthcare assistant Hx Now No 05/04/24 09:12 Gestational Age (in weeks): EDC: Hx Hx Para Hx Section SAB No 05/05/24 12:50 Active Medications Active Medications: Current Medications Generic Name Dose Route Start Last Admin Trade Name Freq PRN Reason Stop Dose Admin Lactated Ringer's 1,000 mls @ 125 mls/hr 05/18/24 07:30 IV 05/18/24 15:29 .Q8H JEFF Sodium Chloride 1,000 mls @ 15 mls/hr 05/18/24 10:30 05/18/24 10:30 IV 05/23/24 23:49 15 mls/hr .Q48H JEFF Administration Protocol Insulin Human Lispro 1 - 6 unit 05/18/24 07:30 Insulin Lispro 100 Unit/Ml Insuln.Pen SC 05/18/24 18:00 Q4H PRN PRN BG>/= 180, SEE PROTOCOL Protocol Sodium Chloride 5 - 15 ml 05/18/24 07:30 0.9% Nacl Peripheral Flush Adult/Peds IV UD PRN SALINE FLUSH PFSH Medical History Depression Cancer Wears glasses Hypothyroid Thyroid disease Arthritis Bladder disease Fatty liver High cholesterol GERD (gastroesophageal reflux disease) History of edema CPAP (continuous positive airway pressure) dependence Sleep apnea Non-smoker Hypertension Nutcracker esophagus History of echocardiogram History of stress test Sacral nerve stimulator present PONV (postoperative nausea and vomiting) Home Medications ?Medication ?Instructions ?Recorded ?Last Taken ?Type escitalopram oxalate 5 mg tablet 5 mg PO DAILY 07/11/14 Unknown History levothyroxine 25 mcg tablet 25 mcg PO DAILY 07/11/14 05/18/24 History valacyclovir 500 mg tablet 500 mg PO DAILY 05/08/18 Unknown History acetylcysteine 600 mg capsule (NAC) 600 mg PO DAILY 09/22/23 Unknown History amlodipine 5 mg tablet 5 mg PO QDAY 09/22/23 05/17/24 History antiarthritic combination no.2 900 900 mg PO DAILY 09/22/23 Unknown History mg tablet (glucosamine-chondroitin) ascorbate calcium (vitamin C) 500 500 mg PO DAILY 09/22/23 Unknown History mg tablet magnesium 200 mg tablet 200 mg PO DAILY 09/22/23 Unknown History omega 5-qyz-wwq-fish oil 300 1 cap PO DAILY 09/22/23 Unknown History mg-1,000 mg capsule (Fish Oil) pantoprazole 40 mg tablet,delayed 40 mg PO QDAY 09/22/23 05/18/24 History release quercetin 500 mg capsule 500 mg PO DAILY 09/22/23 Unknown History turmeric 400 mg capsule 400 mg PO DAILY 09/22/23 Unknown History vitamin B complex 1 tab PO DAILY 09/22/23 Unknown History zinc acetate 25 mg (zinc) capsule 25 mg PO DAILY 09/22/23 Unknown History ascorbic acid 30 mg-collagen, 1 tab PO DAILY 05/04/24 Unknown History hydrolyzed 833.3 mg tablet (Collagen Skin Renewal) dorzolamide 22.3 mg-timolol 6.8 1 drp ophthalmic (eye) BID 05/04/24 05/18/24 History mg/mL eye drops Allergy/AdvReac Type Severity Reaction Status Date / Time nitrous oxide Allergy Mild Unknown Verified 05/18/24 10:15 cat dander Allergy Other Verified 05/18/24 10:15 Environmental Allergies: Allergy Other Verified 05/18/24 10:15 Uncoded (pine) Seasonal Allergies: Uncoded Allergy Other Verified 05/18/24 10:15 (environmental) Family History Other CVA (cerebral vascular accident) Cancer Diabetes Surgical History History of foot surgery History of vein stripping H/O eye surgery History of esophagogastroduodenoscopy (EGD) (~05/11/18) Social History household members: spouse Smoking Status: Never smoker alcohol intake: current alcohol intake frequency: a few times a month Review of Systems (Anesthesia) ROS Narrative System reviewed and no additional complaints, except as documented.
--- NOTE | 2024-05-18 11:10 | PCM.HP.BLA ---
History and Physical Date of Admission: 05/18/24 [facility] [address] [place] [address] OFFICE VISIT Date of Service: 02/04/24 MR#: [id number] Acct: [id number] Name: MARILUZ GUTIERREZ Rep #: [id number] : 1950 Provider: Dr. Jose Francisco Mejia DO Age/Sex: 73/F Location: [facility] Status: Signed with Addenda ADDENDUM by Lena Floyd on 02/04/24 at 1034 Office Procedure Documentation entered by Lena Floyd 02/04/24 10:34: Ortho Injections Injections Yes Knee Right Is this a patient provided medication?: No Details: Obtained consent for injection. Under sterile conditions, injected the patients right knee with 1.5cc bupivacaine 1.5cc lidocaine 1cc depo medrol. The patient tolerated the injection well without any noted complication. Patient should call our office if redness develops, pain worsens or if they have any concerns. Office Meds Depo-Medrol 40 mg/mL suspension for injection Performing Provider: Jose Francisco Mejia DO Performing Location: [facility] Administered by: Jose Francisco Mejia DO on 02/04/24 10:32 Dose Route Admin Location Dispensed Lot Number Expiration Date NDC Geochemistry Teacher 40 mg intra-articular right knee 1 mL [id number] 10/15/25 3363-2319-65 PHARMACIA-UPJHN Date cc: ~* Signed Intake Vital Signs 09/21/2409:00 Height 5 ft 5 in Intake Visit Reasons: BILATERAL KNEES Chief Complaint: Bilateral Knee Pain Accompanied by: Self Allergies nitrous oxide Allergy (Mild, Verified 02/04/24 09:08) Unknowncat dander Allergy (Verified 02/04/24 09:08) OtherSeasonal Allergies: Uncoded (environmental) Allergy (Verified 02/04/24 09:08) Other Medications ?Medication ?Instructions ?Recorded ?Confirmed ?Type escitalopram oxalate 5 mg tablet 5 mg PO DAILY 07/11/14 02/04/24 History levothyroxine 25 mcg tablet 25 mcg PO DAILY 07/11/14 02/04/24 History timolol maleate 0.25 % eye drops 1 drp ophthalmic (eye) DAILY 03/08/17 02/04/24 History valacyclovir 500 mg tablet 500 mg PO DAILY 05/08/18 02/04/24 History acetylcysteine 600 mg capsule (NAC) 600 mg PO DAILY 09/22/23 02/04/24 History amlodipine 5 mg tablet 5 mg PO QDAY 09/22/23 02/04/24 History antiarthritic combination no.2 900 mg PO 09/22/23 02/04/24 History mg tablet (glucosamine-chondroitin) ascorbate calcium (vitamin C) 500 500 mg PO DAILY 09/22/23 02/04/24 History mg tablet celecoxib 100 mg capsule mg PO 09/22/23 02/04/24 History diclofenac potassium 25 mg tablet 25 mg PO DAILY 09/22/23 02/04/24 History magnesium 200 mg tablet 200 mg PO DAILY 09/22/23 02/04/24 History omega 4-jdg-llg-fish oil 300 1 cap PO DAILY 09/22/23 02/04/24 History mg-1,000 mg capsule (Fish Oil) pantoprazole 40 mg tablet,delayed 40 mg PO QDAY 09/22/23 02/04/24 History release quercetin 500 mg capsule mg PO 09/22/23 02/04/24 History turmeric 400 mg capsule mg PO 09/22/23 02/04/24 History vitamin B complex 1 tab PO DAILY 09/22/23 02/04/24 History zinc acetate 25 mg (zinc) capsule 25 mg PO DAILY 09/22/23 02/04/24 History Have you fallen in the past year?: Yes PFSH Surgical History H/O eye surgery History of esophagogastroduodenoscopy (EGD) (~05/11/18) Family History Other CVA (cerebral vascular accident) Cancer Diabetes Social History household members: spouse Smoking Status: Never smoker alcohol intake: current alcohol intake frequency: a few times a month HPI BILATERAL KNEES Details: This documentation accurately reflects the service provided and the decisions made by me, Dr. Jose Francisco Mejia, DO 02/04/24 0851. Part of today?s visit was documented by Karmen RUTH, acting as scribe. MARILUZ GUTIERREZ is a 73 year old F here today for 02/04/2024: Patient is here today for continued bilateral knee pain. She states that the injection gave her maybe a week to a week and a half. It never completely took away her pain but it did take the edge off. She states that she would like to talk about her next steps and possible right knee replacement. She states that her left knee is not doing too bad right now 11/03/2023 : Third Euflexxa injection given bilateral knee 10/27/2023: Second bilateral Euflexxa 10/20/2023: First bilateral Euflexxa 09/22/2023 visit: Her knee has been bothering her on and off since her 20s however it has gotten worse the last 2 years. Right knee is worse than the left she has not had any surgery or recent injury in either knee. She is a previous patient of [facility] she has had steroid injections multiple initially more successful and as time went on they became less successful she did also do Durolane which was not successful. Last steroid injection was in July and was not helpful, as of the past few days she started having clicking that is not painful in the left knee. She did have some injuries in high school but nothing major, she has done physical therapy in the past for this which was not helpful. Right knee pain is mostly anterior medial her left knee is vague and generalized. Denies any numbness or tingling she does not feel confident in the knees. She has tried Aleve meloxicam and recently was started on Celebrex. Plan: Explained x-rays to patient and her right knee shows there is more narrowing over the lateral aspect of the knee than the medial aspect. It is not quite bone on bone just yet except for maybe a small spot on the flexion view. The left knee only has mild arthritic changes, in regards to the right knee her options include, continued NSAID short or long-acting steroid injections viscosupplementation continue glucosamine/chondroitin physical therapy braces. I explained I do not prefer Durolane as it has a very high molecular weight and does not seem to be as effective. Or total knee arthroplasty which was reviewed. Options are very similar for the left knee however she is not a candidate for total knee replacement in that side as she is not significant enough yet arthrosis. Patient does wish to proceed with bilateral Euflexxa injections with a steroid injection at the first injection in addition she did trial and take a web reaction brace for the right knee she will continue her Celebrex. She understands we cannot proceed with a knee replacement within 3 months of any injection in the knee however if this is not provide her with enough relief we we will move forward with joint arthroplasty of the right knee Follow up once the Euflexxa injections are approved Ortho Exam General General: Yes no acute distress Neurologic: Yes alert and Yes oriented x3 Psychologic: Yes reasonable and appropriate Right Knee Skin/Wound: Yes CDI, No erythema, No ecchymosis and No swelling Knee ROM: Yes ROM-Extension -20 to 0 (-3) and Yes ROM-Flexion 0-140 (110) Examination: Yes Med jt line tenderness, No Lat jt line tenderness and Yes TTP Pes Anserine Stability: NML: Anterior Drawer, NML: Posterior Drawer, NML: Valgus 0, NML: Valgus 30, NML: Varus 0 and NML: Varus 30 Patella Translation: 1 Patella Grind: No KNEE: edema to mid lower leg bilaterally no effusion Left Knee Skin/Wound: Yes CDI, No ecchymosis, No erythema and No swelling Homans Sign: No Knee ROM: Yes ROM-Extension -20 to 0 and No ROM-Flexion 0-140 (120) Examination: Yes med jt line tenderness, Yes Lat jt line tenderness and Yes TTP Pes Anserine Stability: NML: Anterior Drawer, NML: Posterior Drawer, NML: Valgus 0, NML: Valgus 30, NML: Varus 0 and NML: Varus 30 Apprehension with Lateral Translation: No Patella Translation: 1 KNEE: full EXT FLEX 120 no joint effusion pain mostly anterior Head: Normocephalic Atraumatic Chest: symmetrical rise, non-labored breathing, no audible wheeze Abdomen: no guarding, non-rigid palpable but faint pedal pulse Supplemental Info 09/22/23 x-ray right knee: There is moderate approaching severe on flexion view narrowing lateral compartment and spurring mild spurring of the medial tibial spine there is spurring noted of the medial femoral condyle and patellofemoral joint 09/22/2023 x-ray left knee: Mild degenerative changes lateral compartment mild spurring also mild spurring noted medial compartment on flexion view and moderate medial patellar facet narrowing and spurring 11/25/2022 EMG lower extremity:This is a mildly abnormal study. There is electrophysiologic evidence suggestive, but not diagnostic of a mild, chronic, right L5 radiculopathy. There was no electrophysiologic evidence of plexopathy, entrapment neuropathy or peripheral neuropathy. Coding Level of Care Code Off vis,est,level 4 Diagnoses Bilateral primary osteoarthritis of knee M17.0 Assessment and Plan Assessment and Plan (1) Bilateral primary osteoarthritis of knee: Status: Acute Plan Patient is here today for follow-up on her bilateral knee pain. Patient only had about a week to a week and a half of relief. I spoke with patient that all of her treatment options are physical therapy, anti-inflammatories, glucosamine chondroitin, viscosupplementation injections, steroid injection, or a TKA. She feels that her knee pain is affecting her quality of life as she has become more sedentary, it affects her walking, and has trouble going down steps one at a time. I did advise patient that if she wants to do a steroid injection she would be unable to have a knee replacement for 3 months. Risks, benefits and alternatives of surgery reviewed including but not limited to bleeding, infection, nerve, artery and/or tissue damage, fracture, VTE, mechanical feel of the knee, continued pain, stiffness and expected post-operative course.?I spoke with patient about the IOVERA procedure that we can do before surgery to help with the incisional pain post-operatively. Patient wishes to proceed with a steroid injection in the right knee today and a kneee replacment on the right knee in late April. Patient would also like to proceed with the IOVERA procedure. The injection was given today in the right knee. Tentative surgery right total knee arthroplasty same day May 11, [address] scan and medical clearance. Clinical Quality Measures Falls Risk Screening/Assistive Devices Have you fallen in the past year?: Yes 02/04/24 1024 <Electronically signed by Jose Francisco Mejia DO> Date Jose Francisco Mejia DO I have examined the patient and the H&P has been reviewed. There are no clinical changes since date of exam.
--- NOTE | 2024-05-18 11:45 | KNEE_PTH ---
PATIENT: MARILUZ GUTIERREZ LOC: MS2 U#:[id number] AGE/SX: 73/F ROOM: [facility] RE05/18/[address]: Dr. Jose Francisco Mejia DO : 1950 BED: 1 DIS: 05/19/2024 SPEC #: [id number] RECD: 05/18/24 15:11 STATUS: YONNY RERonit #: [id number] MARTHA: 05/18/24 11:[address]: Jose Francisco Mejia DEPT: SURGICAL PATHOLOGY RECD BY: Charmaine Olivier ENTERED: 05/19/24 07:42 SP TYPE: TOTAL KNEE OTHR DR: Dr. Lilliana Mishra DO Tissues: Knee, NOS Procedures: Decalcification bone/plaque Surgery Specimen Level III HEADER OPERATION: ERAS, right total knee replacement robotic arm assist PRE-OP DIAGNOSIS: Bilateral primary osteoarthritis of knee TISSUE SUBMITTED: Bone and soft tissue of right knee MICROSCOPIC DIAGNOSIS Right knee, total knee arthroplasty: * Articular bone with reactive/degenerative changes and fatty marrow spaces. MICROSCOPIC DESCRIPTION Slides are reviewed. GROSS DESCRIPTION Received fresh labeled with the patient's name Radha Gutierrez and designated bone and soft tissue right knee are multiple yellow to red-brown, bone and soft tissue fragments that aggregate to 9.6 x 7.0 x 3.0 cm. Multiple fragments show an articular surface with focal areas and are yellow-prince, smooth and extensive areas that are yellow to red-brown and granular. The marginal surfaces are prince to red-brown are trabecular and focally hemorrhagic. Sectioning through the fragments shows yellow to red-brown trabecular bone and articular cartilage that ranges from 0.1 to 0.3 cm thick. Welder/Fabricator sections are submitted as follows:Cassette summary:1-sections of smaller fragments2-two sections from two largest fragmentsJK. 05/19/2024 TC: CPT:191407,71693
[2024-05-18] MEDS: TXA 1000mg in NS100 100ml (IVPB at Incision) 660 MG IV (11:55)
[2024-05-18] MEDS: Cefazolin 2 GM in Syringe 10 ML IV (12:00)
[2024-05-18] MEDS: dexAMETHasone 10 MG/ML Vial IV (12:14)
[2024-05-18] MEDS: TXA 1000mg in NS100 100ml (IVPB at Closure) 660 MG IV (12:44)
[2024-05-18] MEDS: 0.9% Normal Saline (Pres. free 10 ML Vial (13:10)
[2024-05-18] MEDS: dexAMETHasone 4 MG/ML Vial (13:10)
[2024-05-18] MEDS: Bupivacaine 0.5% PF 10 ML VIAL (13:10)
[2024-05-18] MEDS: Epinephrine (1 mg/ml) 1 MG/ML VIAL (13:10)
--- NOTE | 2024-05-18 14:13 | PCM.OPRPT ---
Operative Report (Standard) Operative Information Date of Procedure: 05/18/24 Pre-Operative Diagnosis: Right knee DJD Post-Operative Diagnosis: Same Surgery/Procedure Performed: Right total knee arthroplasty casting cleaner: Yes Administration Physician: Elmer Baca Tasks completed by registered nurse first assistant: Opening & closing and Retracting Additional library media assistant?: No Type of Anesthesia: Spinal RN Documented Start/Stop Times: Operation Date: 05/18/24 11:45 Case Time Into Pre-Op 05/18/24 10:00 Anesthesia Start 05/18/24 11:50 Into Room 05/18/24 11:50 Procedure Start 05/18/24 12:17 Procedure End 05/18/24 14:05 Anesthesia End 05/18/24 14:14 Out of Room 05/18/24 14:14 Procedure Start Time: 12:17 Procedure Stop Time: 14:05 Select all DRAINS/GRAFTS/IMPLANTS that apply: Prosthetic device Prosthetic device details: [place] Estimated Blood Loss: 150 Specimen collected: Yes Description of specimen(s) removed: Bone and soft tissue Description of surgery: Preoperative diagnosis: Right knee DJD Postoperative diagnosis: Same Procedure: Right total knee arthroplasty CT guided Robotic Assisted Implant: [place] triathlon cemented, femoral component size 2, tibial baseplate size 3, asymmetric patella size 32, polyethylene X3 size 9 CS Anesthesia: Spinal with adductor canal block Tourniquet time: 25 minutes at 300 mmHg Complications: None Condition: Stable to PACU Estimated blood loss: 175 cc Respiratory Care Instructor Elmer Baca. My physician library media assistant was a vital part of this case. He was important in appropriate retraction during the case, and protection of soft tissues during procedure. His intimate knowledge of the case and my steps aided in safe and expedient completion of the procedure as well as appropriate position of the extremity during the case. He was also vital in assisting with closure under my direct supervision. Indication for procedure: This is a 73-year-old female with long standing degenerative joint disease of the knee who has failed conservative treatment and wished to proceed with elective total knee arthroplasty. Risk benefits and alternatives were reviewed including; risk of bleeding, infection, nerve artery and tissue damage, continued pain, postoperative stiffness, venous thromboembolism, need for postoperative rehabilitation, mechanical feel to the knee, and expected postoperative course. The pre- operative CT and templating was performed with component sizing. Procedure: The patient was met in the preoperative holding area. The operative extremity was identified by both patient and physician and was marked. Patient was met by anesthesia. An adductor canal block was placed by anesthesia postoperatively the patient was brought back to the operating room on a wheeled cart and transferred to the operating table in the supine position. Anesthesia was started. A well-padded tourniquet was placed on the operative extremity. The patient was prepped and draped in the usual sterile fashion. A timeout was called to ensure the proper patient procedure and extremity were being contemplated. An esmarch was used to exsanguinate the extremity. The tourniquet was inflated. A 10 blade scalpel was used to make a midline incision down through the skin and subcutaneous tissue. Skin retractors placed. Bovie and Aquamantis were used to perform meticulous hemostasis. full-thickness flaps were elevated medial and lateral along the joint capsule. A deep blade scalpel was used to perform a medial parapatellar arthrotomy. The knee was brought to full extension. A bovie was used to release the soft tissues off the most proximal aspect of the medial tibial plateau, a three-quarter inch curved osteotome was also used in this process. The infrapatellar fat pad was excised. The suprapatellar fat pad was excised partially anteriorolateraly and portion the anterioromedial pad was elevated from the femur. At this point our intra-articular femoral array was placed at a 45 degree angle proximal and posterior to the medial epicondyle. femoral checkpoint was placed at this time. Our tibial array was placed partially intra incisional 1 stab incision was made for the inferior pin with a 15 blade scaple, and pins were placed and attached to the tibial array , tibial checkpoint was placed in the proximal tibial metaphysis. Tourniquet was let down. At this point registration rocha were taken throughout the knee . Once the knee was registered we then tensioned the medial and lateral ligaments in extension and 90 degrees of flexion. We then used these numbers to adjust our components within parameters to balance the knee in both flexion and extension once this was done on our monitor we then proceeded with using the robotic arm to make our tibial plateau cut, anterior and posterior chamfer and distal femur cuts. we removed the cut fragments with the use of a bovie and Brionna, we did use a lamina diesel locomotive firer to insure we visualized and removed all posterior osteophytes and at this time also used the Aquamantis on the posterior joint capsule. we then trialed and achieved the desired plan with a well-balanced knee. we used the green probe to bob the corresponding tibial rotation based on our CT template. Lug holes were drilled in the femur the tibia preparation was completed with the appropriate sized base plate pinned based on previous rotation bob. An appropriate sized fin punch was used on the tibia and the patella was prepared by first using a caliper to ensure sufficient bone stock and a patellar reamer to remove the desired amount of bone. lug holes drilled for an asymmetric poly. We then brought the knee through range of motion with excellent patellar tracking. We thoroughly irrigated the knee. Trial components were removed a posterior capsular injection was preformed with our standard cocktail. In addition the aqua Mantis was also used to aid in hemostasis. Betadine rinse was allowed to sit and washed out completely. Components were cemented into place with standard technique allowed to harden in full extension excess cement was removed with a Tolleson elevator. Aricept rinse was then used followed by several more liters of irrigation after it was allowed to sit. The joint capsule was closed with #1 Ethibond gcxaqn-wl-nymgn's in the upper part of the arthrotomy and #1 Vicryl in the lower part of the arthrotomy. , Followed by 2-0 Vicryl in the subcutaneous tissues with you in the skin. Arrays and checkpoints were removed prior to closure all counts were correct stab incisions were closed with a staple standard dressing in the form of Mepilex AG for the main incision and a small Mepilex over the pin holes. Thigh-high ALANNA hose applied over top of dressing. Patient tolerated the procedure well and was directed to PACU in stable condition . There were no intraoperative complications. Surgical Findings: DJD knee Complications Complications: No
--- NOTE | 2024-05-18 14:18 | EX.PCM.DISCH ---
Discharge Instructions Diet Discharge Diet: No restrictions Dressing / Incision Call your doctor if you observe: Shortness of breath and Chest pain Additional Dressing/Incision Instructions:: Ice and elevate lower extremities 2 weeks while not ambulating. Ambulation is encouraged. Weight bearing as tolerated. Use assistive devise for stability. Encourage FULL knee extension and flexion 1 time EVERY time you get up and down and MULTIPLE times per day. No showering until 72 hours after surgery. May begin showering postop day #3. Remove the dressing prior to shower and gently wash with warm water and antibacterial soap then pat dry and place abdominal pad (or plain gauze) and ALANNA hose over top. This is to be done daily. Do not submerge for 3 weeks. If not showering daily after the initial 72 hours then you must clean incision and change dressing daily after the dressing comes off, must come off by 7 days postop. Do not allow animals near the incision area. Keep clean. Follow anti-coagulation recommendations as prescribed. Do not take any NSAIDs while on blood thinner. Do not take any additional narcotic pain medication other than what was prescribed on your surgery day without discussing with physician. Narcotic medication can be addictive. Do not drink alcohol while taking narcotics. Supplement narcotic prescription with acetaminophen 1000 mg 4 times a day. Start physical therapy. If you are not currently scheduled for physical therapy or you are unsure of appointment time please call office [facility] to arrange. Call Dr. Mejia with any concerns. Follow Up Care Please Follow Up With: Jose Francisco Mejia DO When: 2 weeks Test Results: Test results from this visit will be discussed in further detail at your follow-up appointment, if applicable. Discharge Plan Admission Primary Reason for Your Visit: Right total knee arthroplasty Attending Provider: Jose Francisco Mejia Primary Care Provider: Lilliana Mishra Instructions Print Language: Singaporean Discharge Orders/Prescriptions Prescriptions: New acetaminophen 500 mg tablet 1,000 mg PO Q6H Qty: 100 1RF cephalexin 500 mg capsule 1,000 mg PO Q8H Qty: 4 0RF Rx Instructions: Take 2 tabs before you go to bed and 2 tabs after 5 AM morning after surgery when you wake up oxycodone 5 mg tablet 5 - 10 mg PO Q4H PRN (Reason: pain) 7 Days Qty: 60 0RF Eliquis 2.5 mg tablet 2.5 mg PO BID Qty: 28 0RF Rx Instructions: Begin morning after surgery. Continued zinc acetate 25 mg (zinc) capsule 25 mg PO DAILY amlodipine 5 mg tablet 5 mg PO QDAY pantoprazole 40 mg tablet,delayed release (DR/EC) 40 mg PO QDAY ascorbate calcium (vitamin C) 500 mg tablet 500 mg PO DAILY vitamin B complex Tablet 1 tab PO DAILY magnesium 200 mg tablet 200 mg PO DAILY acetylcysteine [NAC] 600 mg capsule 600 mg PO DAILY omega 1-qwg-ygn-fish oil [Fish Oil] 300-1,000 mg capsule 1 cap PO DAILY glucosamine-chondroitin 900 mg tablet 900 mg PO DAILY quercetin 500 mg capsule 500 mg PO DAILY levothyroxine 25 MCG tablet 25 mcg PO DAILY escitalopram oxalate 5 MG tablet 5 mg PO DAILY valacyclovir 500 MG tablet 500 mg PO DAILY dorzolamide-timolol 22.3-6.8 mg/mL drops 1 drp ophthalmic (eye) BID Collagen Skin Renewal 30-833.3 mg tablet 1 tab PO DAILY Held turmeric 400 mg capsule 400 mg PO DAILY Hold Instructions: May resume after completion of blood thinner if needed Other Ambulatory Orders: 12 Lead EKG (Routine) Location: None Selected Ordered By: Dr. Jose Francisco Mejia Referrals / Follow Up: Lilliana Mishra DO [Primary Care Provider] - Disposition Disposition (needs filled in before D/C Order can be placed): Home, Self Care
--- NOTE | 2024-05-18 14:22 | PCM.POST.ANE ---
Anesthesia: Postop Eval I Current Vital Signs Temperature: 97.3 F Pulse Rate: 62 Blood Pressure: 120/65 Respiratory Rate: 16 Pulse Ox: 95 Oxygen Delivery Method: Room Air Assessment Airway patent: Yes Spontaneous unlabored respirations: Yes Mental status: Awake and Calm nausea: No Vomiting: No Anesthesia Complication: No Fluid Hydration Crystalloid volume administer (ml): 1,600 Total IV fluid infused: 1,600 Progress Note Anesthesia document: Postop Eval 1 completed: Yes
--- NOTE | 2024-05-18 14:30 | RAD_ITS ---
PROCEDURE: KNEE 1 OR 2 VIEWS REASON FOR EXAM: Status post right knee replacement. TECHNIQUE: 2 view(s) of the right knee COMPARISON: Comparison is made with prior study dated September 22, 2023. FINDINGS: The patient is status post right total knee replacement. There is good alignment. Postoperative soft tissue changes. RAD/Knee 1 or 2 Views IMPRESSION: Status post total knee replacement. There is good alignment. Postoperative soft tissue changes. Reading Location: [facility]
--- NOTE | 2024-05-18 15:04 | PCM.POSTANE2 ---
Anesthesia Postop Eval I Sum Postop Eval Completion status Anesthesia document: Postop Eval 1 completed: Yes Anesthesia Postop Eval I Summary Anesthesia Postop Eval I Summary: Anesthesia Postop Eval I: Assessment Summary Airway patent Yes 05/18/24 14:23 [email or web address] Spontaneous unlabored Yes 05/18/24 14:23 [email or web address] respirations Mental status Awake,Calm 05/18/24 14:23 [email or web address] nausea No 05/18/24 14:23 [email or web address] Vomiting No 05/18/24 14:23 [email or web address] Anesthesia Postop Eval I: Fluid Summary Crystalloid volume administer 1,600 05/18/24 14:23 [email or web address] (ml) Colloids volume administered ( ml) Blood Product volume administered (ml) Total IV fluid infused 1,600 05/18/24 14:23 [email or web address] Anesthesia Postop Eval I: Summary Notes Anesthesia Complication No 05/18/24 14:23 [email or web address] Anesthesia Complication Comment: Post-operative progress note Anesthesia: Postop Eval II Evaluation Mental status: Calm and Asleep Pain Level: 3 nausea: Yes Vomiting: No
[2024-05-18] MEDS: Ondansetron 4 MG/2 ML Vial IV (17:46)
--- NOTE | 2024-05-18 17:49 | SUR.PHASEII ---
PT EVALUATED PT, PT WAS UNSTEADY WITH WALKER AND PT WAS UNABLE TO GO UP STAIRS DO TO BEING UNSTEADY, PT HAS 13 STAIRS TO GO UP INTO HER HOUSE AND NO WAY TO GET INTO HER HOUSE OTHERWISE. CALL MADE TO AND DECISION MADE TO ADMIT PT FOR OBSERVATION
[2024-05-18] MEDS: Cefazolin 2 GM in 0.9% Normal Saline (100mL Bag) 100 ML IV (18:30)
[2024-05-18] MEDS: 0.9% Normal Saline (1000mL) 1,000 ML 125 ML IV (20:39)
[2024-05-18] MEDS: Acyclovir 200 MG Capsule 400 MG PO (22:57)
[2024-05-18] MEDS: Senna/Docusate Sodium 1 Tablet 2 TABLET PO (22:58)
[2024-05-18] MEDS: amLODIPine 5 MG Tablet PO (23:02)
[2024-05-19 00:18] VITALS: BP 118/68; PULSE 68; RESP 16; TEMP 36.6; O2SAT 94; BMI 35.4
[2024-05-19] MEDS: 0.9% Normal Saline (1000mL) 1,000 ML 125 ML IV (03:53)
[2024-05-19] MEDS: 0.9% NaCl Peripheral Flush Adult/Peds IV (03:53)
[2024-05-19] MEDS: Cefazolin 2 GM in Syringe IV ×2 (03:55→11:41)
[2024-05-19 04:18] VITALS: BP 111/52; PULSE 72; RESP 16; TEMP 36.7; O2SAT 96; BMI 35.4
[2024-05-19 04:54] LABS: Hemoglobin 10.7 g/dL (12.0-15.0); Mean Corp Hgb Conc 33.4 g/dL (32-36); Mean Corpuscular Hgb 31.7 pg (27.0-32.0); Mean Corpuscular Volume 94.7 fL (81-99); Mean Platelet Vol. 9.1 fl (6.2-12.0); Platelet Count 216 K/mm3 (150-450); RBC Distribution Width CV 14.6 % (11.6-14.6); RBC Distribution Width SD 50.9 fl (35.1-43.9); Red Blood Count 3.38 M/mm3 (4.2-5.4); White Blood Count 12.5 K/mm3 (4.4-11.0)
[2024-05-19 05:22] LABS: Anion Gap 11 (5-15); BUN 8 mg/dL (4-19); BUN/Creat Ratio 14.3 RATIO (10-20); Calcium,Total 8.7 mg/dL (7.6-11.0); Carbon Dioxide 22.2 mmol/L (21.0-32.0); Chloride 106 mmol/L (98-108); Creatinine, Serum 0.59 mg/dL (0.70-1.20); EST Glomerular Filtration Rate 95 (>60); Estimated Creatinine Clearance 72.02 ml/min (50-250); Glucose 141 mg/dL (70-99); Potassium 4.2 mmol/L (3.3-5.1); Sodium Level 139 mmol/L (133-145)
[2024-05-19] MEDS: APIXABAN 2.5 MG TABLET (WCH) PO (06:38)
[2024-05-19] MEDS: Levothyroxine 25 MCG TABLET PO (06:38)
[2024-05-19] MEDS: Acetaminophen 500 MG Tablet 1000 MG PO ×2 (06:38→13:41)
[2024-05-19 08:15] VITALS: O2SAT 98
[2024-05-19 08:20] VITALS: BP 102/68; PULSE 76; RESP 18; TEMP 36.7; O2SAT 96
[2024-05-19] MEDS: Ascorbic Acid 500 MG Tablet PO (08:24)
[2024-05-19] MEDS: Acyclovir 200 MG Capsule 400 MG PO (08:24)
[2024-05-19] MEDS: Senna/Docusate Sodium 1 Tablet 2 TABLET PO (08:24)
[2024-05-19] MEDS: Pantoprazole Sodium 40 MG Tablet PO (08:24)
--- NOTE | 2024-05-19 10:42 | CASEMGMT ---
LEONIDES SALINAS Assessment: Face to Face with pt for initial transition planning/care coordination assessment. LEONIDES SALINAS introduced self and role at [facility], pt voices understanding and consents to assessment. Pt is A&O x4 and answers all questions appropriately at this time. Pt sitting up in chair in no distress. Care providers, pharmacy, and demographics verified/updated. Admitting Dx: TKA Strata Score: 1 PCP:Tad Specialists:Jackie, ortho; Jose Francisco, pulm; Cl, HIGH VALUE ASSOCIATE; Sidney, pod Preferred Pharmacy: [facility] Insurance: [employer] [facility] Prescription Benefit: yes LNOK: Alejo Crouch, ; Chuckie Crouch, son Living Arrangements: Pt lives with in a single story home on a hill with 13 steps to enter with a rail on one side. Pt plans for to drive up the hill to the deck and pt will have 2 steps to enter the home. Pt reports prior to surgery, she was I in ADLs and IADLs. Pt denies concerns at home. Transportation: Pt drives self and denies concerns with transportation. Pt will transport pt until she can drive again. Discussed if this is an issue that [facility] has a van without charge she may use if she can get in and out on her own. Pt to think about this. If she decides on it, she is aware that at the first therapy appt on Friday, she may ask them to coordinate her future appts with the van. Pt verbalizes understanding. DME:FWW, cold therapy pack HHC/SNF: Denies hx of Pt states no concerns with going home at time of dc. Pt has outpt therapy scheduled at [facility] on Friday. TC to [facility], pt meds were delivered and the eliquis cost was $83.01. Pt states no further concerns/needs. CM to follow. Advised pt to ask CM if any further questions/concerns/needs arise, voices understanding. Pt Goal: Home with outpt therapy Plan: Home with outpt therapy Ruel COYLE CM
[2024-05-19 11:39] VITALS: BP 121/57; PULSE 72; RESP 16; TEMP 37.1; O2SAT 100
[2024-05-19 11:42] VITALS: BMI 35.4
--- NOTE | 2024-05-19 12:07 | PCM.PN.ORT ---
Subjective Subjective Patient seen and examined. Doing well in good spirits pain controlled no fevers chills nausea vomiting shortness of breath or chest pain she did have dizziness yesterday which is subsequently resolved she is doing well with physical therapy has down stairs and feels she is comfortable being discharged home Objective Data Objective Data Vital Signs: Vital Signs Temp Pulse Resp BP Pulse Ox O2 Del Method O2 Flow Rate 98.7 F 72 16 121/57 H 100 Room Air 2 05/19/24 11:39 05/19/24 11:39 05/19/24 11:39 05/19/24 11:39 05/19/24 11:39 05/19/24 11:39 05/19/24 04:18 Oxygen Flow Rate (L/min) 2 Oxygen Delivery Method Room Air Weight: 213 lb Body Mass Index (BMI) 35.4 Intake & Output: Intake and Output for Last 24 Hours 05/17/24 05/18/24 05/19/24 23:59 23:59 23:59 Intake Total 1452 / 1452 924.17 / 924.17 Balance 1452 / 1452 924.17 / 924.17 Lab / Micro Data 05/19/24 04:24 05/19/24 04:24 Labs: Laboratory Results - last 24 hr 05/19/24 04:24: WBC 12.5 H, RBC 3.38 L, Hgb 10.7 L, Hct 32.0 L, MCV 94.7, MCH 31.7, MCHC 33.4, RDW Std Deviation 50.9 H, RDW Coeff of Beatris 14.6, Plt Count 216, MPV 9.1, Sodium 139, Potassium 4.2, Chloride 106, Carbon Dioxide 22.2, Anion Gap 11, BUN 8, Creatinine 0.59 L, Estim Creat Clear Calc 72.02, Est GFR (MDRD) Non-Af 95, BUN/Creatinine Ratio 14.3, Glucose 141 H, Calcium 8.7 Micro: Microbiology 05/07/24 08:51 Swab (Method) Nasal Screen MRSA/MSSA - Final Radiography Diagnostic Testing: Radiology Impression Knee X-Ray 05/18/24 14:30 IMPRESSION: Status post total knee replacement. There is good alignment. Postoperative soft tissue changes. Reading Location: [facility] Physical Exam Const alert and oriented x3 General Appearance: cooperative Extremity Extremity Narrative: Right lower extremity dressing clean dry intact compartment soft neurovascular intact EHL tibialis anterior gastrocsoleus intact sensation light touch palpable pedal pulse Assessment & Plan Assessment/Plan (1) S/P total knee arthroplasty: QUALIFIERS: Laterality: right Qualified Code(s): Z96.651 - Presence of right artificial knee joint PLAN: Plan Postop day #1 right total knee arthroplasty PT OT weightbearing as tolerated Pain control oxycodone 5 to 10 mg every 4 hours Tylenol 1000 mg DVT prophylaxis SCDs ALANNA hose Eliquis 2.5 mg twice daily for 2 weeks postop Begin outpatient physical therapy as already written Follow-up in the office 2 weeks Discharge home
[2024-05-19 13:30] VITALS: O2SAT 96
--- NOTE | 2024-05-19 16:31 | CHAPLAIN ---
Type of Pastoral Visit _x__ Initial Visit ___ Follow-up Visit ___ On-call Visit ___ General Patient Visit ___ Spiritual Assessment ___ Family Conference ___ Bereavement ___ Rapid Response ___ Code Blue ___ Other (describe below) Pastoral Care Referral From _x__ Patient ___ Family ___ Nurse ___ Physician ___ Pulmonary Nurse Practitioner ___ Band Machine Operator ___ Other (describe below) Sacrament/Intervention _x__ Active listening ___ Anointing ___ Latter Day ___ Bereavement ___ Communion _x__ Tiffanie exploration ___ ___ Life review _x__ Prayer ___ Reconciliation ___ Sacrament of Sick _x__ Supportive presence ___ Wedding ___ Other (describe below) Pastoral Comments patient made specific requests for ashes to observe the beginning of Lent; the imposition of ashes was observed; spouse was with her as they were waiting for discharge; offered further spiritual care and pt requests prayers and support for family matters; prayer and listening presence given
== END 2024-05-19 15:15 | disposition home or self-care (01) ==
LOC: SDC 19:53 → MS2 19:53
PROVIDERS: Anesthesiology; Admitting Provider Orthopaedic Surgery; PCP Internal Medicine; Referring Provider Orthopaedic Surgery; Visit Provider Orthopaedic Surgery
PROC: 0SRC0JZ Replacement of Right Knee Joint with Synthetic Substitute, Open Approach (ICD-10-PCS; CPT 27447; principal; 2024-05-18 11:15)
DX: M17.11 Unilateral primary osteoarthritis, right knee (principal); Z79.890 Hormone replacement therapy; I10 Essential (primary) hypertension; G47.30 Sleep apnea, unspecified; Z79.899 Other long term (current) drug therapy; E03.9 Hypothyroidism, unspecified; E78.00 Pure hypercholesterolemia, unspecified
CPT/HCPCS: 27447; 01402; S2900; 64447; 73560; 80048; 82962; 82985; 83036; 83735; 84443; 85025; 85027; 85610; 85730; 86850; 86900; 86901; 87081; 88304; 88305; 88311; 93005; 94668; 96361; 96365; 96375; 96376; 97162; 97530; 99221; C1776; A4216; G0378; J2405; J3475

== ENCOUNTER → 2024-05-26 | Outpatient (CLI) | payer MEDICARE, SELFPAY ==
--- NOTE | 2024-05-26 14:17 | VDLE_ITS ---
Reason For Study Reason For Study: Right leg pain RIGHT LEFT GSV is normal. CFV is compressible, spontaneous, phasic, competent, CFV is compressible, spontaneous, phasic, competent and demonstrates normal augmentation. and demonstrates normal augmentation. FV is compressible, spontaneous, phasic, competent and demonstrates normal augmentation. POP V is compressible, spontaneous, phasic, competent and demonstrates normal augmentation. T/P Trunk is compressible. PTV is compressible. RT PerV is compressible. Procedure This is a venous duplex using B-mode, color flow and spectral Doppler. Exam performed in department. A preliminary report was called and/or faxed to Tj WILL[facility]. VL/Venous Duplex US, Unilateral Interpretation Summary Deep veins of the right lower extremity are patent and compressible segmentally . There is no evidence of right lower extremity deep vein thrombosis. The right great saphenous vein appears patent a nd compressible segmentally. Ordering Physician: Lesa Spencer Referring Physician: Lilliana Mishra M.D. Performed By: Marisabel Juarez RVT
== END | disposition home or self-care (01) ==
LOC: CVS 14:14
PROVIDERS: PCP Internal Medicine; Referring Provider Nurse Practitioner Family; Visit Provider Nurse Practitioner Family
DX: M79.604 Pain in right leg (principal); M79.89 Other specified soft tissue disorders
CPT/HCPCS: 93971

== ENCOUNTER → 2024-08-17 | Outpatient (CLI) | payer MEDICARE, SELFPAY ==
--- NOTE | 2024-08-17 16:05 | BD_ITS ---
PROCEDURE: DEXA BONE DENSITY STUDY 08/17/2024 REASON FOR EXAM: F, age 73 y/o . Postmenopausal. TECHNIQUE: DXA scan of sites with data reported below. REFERENCE LINKS: ISCD Adult Positions COMPARISON: None FINDINGS: BMD and T-SCORES Lumbar spine: 1.089 g/cm2, T-score 0.4 Levels: L1 through L4 Left femoral neck: 0.680 g/cm2, T-score -1.4 Femoral neck comparison data not recommended for monitoring change. Left total hip: 0.85 cm g/cm2, T-score -0.7 Right femoral neck: 0.718 g/cm2, T-score -1.2 Femoral neck comparison data not recommended for monitoring change. Right total hip: 0.840 g/cm2, T-score -0 point The World Health Organization has defined the following categories based on bone density: Normal bone density: T-score equal to or greater than -1.0 Osteopenia: T-score between -1.0 and -2.5 Osteoporosis: T-score equal to or less than -2.5 The patient does meet the pharmacological treatment recommendations for prevention of osteoporosis. BD/Dexa Bone Density Study IMPRESSION: OSTEOPENIA. Recommend follow-up as clinically warranted. Reading Location: [facility]
== END | disposition home or self-care (01) ==
LOC: OPBD 16:04
PROVIDERS: PCP Internal Medicine; Referring Provider Internal Medicine; Visit Provider Internal Medicine
DX: Z13.820 Encounter for screening for osteoporosis (principal); Z78.0 Asymptomatic menopausal state
CPT/HCPCS: 77080

== ENCOUNTER 2024-08-30 13:30 | Outpatient (RCR) | payer MEDICARE, SELFPAY ==
--- NOTE | 2024-04-09 16:29 | HP.PTEVAL_ITS ---
Patient's Visit Information Visit Information Visit Information: MARILUZ GUTIERREZ is a 73 year old F referred to Physical Therapy by Dr. Jose Francisco Mejia DO with a diagnosis of RIGHT KNEE PAIN ,IMPAIRED BALANCE. Date of Evaluation: 04/09/24 Physical Therapist: Ronald Lowry, PT, Cert MDT, OCS Visit Plan Frequency: 2x /Week Duration: 4 Weeks Plan: PT INTERVENTIONS STRENGTHENING QUADS/HAMS/HIP ,FUNCTIONAL STRENGTHENING ,FLEXABILITY AND BALANCE TRAINING Subjective Subjective: This 73 y.o female presents to physical therapy with right knee pain and balance. Patient plans to have right TKR 05/18/24. Patient ah had knee pain many years. Patient is under care by Dr Mejia. Patient has tried gel injections and cortisone with last injection in Jan. Patient seen DR Mishra recommended PT work on strengthening . Patient has had x-rays mod DDD . Patient also had DVT last year for DVT. Patient pain located global knee medial > lateral . Patient denies paresthesia/tingling. Patient sleeping good. Aggravating factors unable to squat ,kneel ,pain with stairs one steps at time. Also extended walking. Patient alleviating factors injection. Patient has motion sensitivity , no vertigo . Patient feel unsteady and difficulty with uneven surface. No recent expect more less mechanical fall. Patient condition affects QOL and function. Patient goals improve balance and TKA SOCIAL: VOCATION: RETIRED Pain Right Knee: Pain Intensity (Out of 10): 1 Pain Intensity Range: 10 Objective Objective: POSTURE: mild forward posture GAIT: reciprocal pattern slight antalgic gait right side PALPATION: medial/lateral joint line EDEMA: absent AROM: supine knee flexion 0-105 degrees right MMT: (peak force) right quads 24.8 ,hamstrings 22.9 ,hip flexion 21.9 ,hip abduction 20.1 STAIRS: one step with rial Balance/Special Test Scores Functional Gait Assessment Score: 23 % Disability: 23.3400 CATSIB Score (Max score 120 seconds): 100 Lower Extremity Functional Score: 27 Goals Goal 1:: Patient to be I with HEP for strengthening Goal Time Frame: 4-6 Weeks Goal 2:: Patient to improve AROM knee by 5 degrees to improve stairs Goal Time Frame: 4-6 Weeks Goal 3:: Patient to improve peak force quads/hams/hip by 5 # to improve strength and function Goal Time Frame: 4-6 Weeks Goal 4:: Patient to improve LFES score by 5 points to improve QOL and function Goal Time Frame: 4-6 Weeks Goal 5:: Patient to improve functional gait assessment by 3-5 points to improve QOL Goal Time Frame: 4-6 Weeks Goal 6:: Patient to demonstrate 40-50% improvement with function and less pain Goal Time Frame: 4-6 Weeks Rehabilitation Potential Physical Therapy Diagnosis: This patient has right knee pain with right TKA s cheduled ~ 05/18/24 with pain ,decrease ROM ,weakness and mild balance deficits thus benefit from skilled PT Rehabilitation Potential: Fair Anticipated Interventions Patient/Client Instruction: Educate patient on: Condition and Plan of Care For the Purpose of:: To decrease pain, To increase ROM, To improve muscle performance and motor function, To improve ability to perform ADL's, To increase tolerance to activity/condition/position, To improve ability of physical actions for home/community/work/leisure, To improve gait and locomotor functions, To increase flexibility/ROM, To improve endurance, To improve balance, To reduce risk of recurrence and To improve tolerance to ADL's Therapeutic Exercise to Include: Strength training, Endurance training, Balance training, Postural training, Flexibilty training and Active ROM Comment: QUADS/HAMS/HIP For the Purpose of:: To decrease pain, To increase ROM, To improve muscle performance and motor function, To increase tolerance to activity/condition/position, To improve ability of physical actions for home/community/work/leisure, To improve health of tissue, To decrease soft tissue restriction, To increase flexibility/ROM, To improve endurance, To improve balance and To prevent re-injury Text: Thank you for the opportunity to evaluate your patient. For Medicare and Medicare HMO plans, please review the plan of care and approve it. It will need to be FAXED BACK to us at [phone] for Medicare purposes. For Medicare only, by signing this I certify the plan of care. Please let me know if there are questions or concerns regarding this plan of care. Physician Signature: Date:
--- NOTE | 2024-05-06 12:17 | HP.PTDCSUM ---
Discharge Summary D/C summary: It has been my pleasure to treat MARILUZ GUTIERREZ referred by Dr. Jose Francisco Mejia DO, with the diagnosis of RIGHT KNEE PAIN ,IMPAIRED BALANCE for a total of 9 visit(s). Discharge Date: 05/06/24 Please see the following information for a summary of their discharge status. Subjective Subjective: Doing better ,less pain with steps ,sleeping better Dr did Cryotherapy with Iovera device to anterior femoral cutaneous nerve and 2 branches of the infrapatellar saphenous nerve. Three nerves in total. Scheduled surgery 3/4 Pain Right Knee: Pain Intensity (Out of 10): 0 Overall Improvement % Improvement: 30 Objective Objective/Function: Objective: POSTURE: mild forward posture GAIT: reciprocal pattern slight antalgic gait right side PALPATION: medial/lateral joint line EDEMA: absent AROM: supine knee flexion 0-115 degrees right MMT: (peak force) right quads 28.8 ,hamstrings 25.9 ,hip flexion 29.9 ,hip abduction 22.1 STAIRS: one step with rial Goals Goal 1:: Patient to be I with HEP for strengthening Goal Progress: Goal Met Goal 2:: Patient to improve AROM knee by 5 degrees to improve stairs Goal Progress: Goal Met Goal 3:: Patient to improve peak force quads/hams/hip by 5 # to improve strength and function Goal Progress: Goal Met Goal 4:: Patient to improve LFES score by 5 points to improve QOL and function Goal Progress: Goal Met Goal 5:: Patient to improve functional gait assessment by 3-5 points to improve QOL Goal Progress: Goal Met Goal 6:: Patient to demonstrate 40-50% improvement with function and less pain Goal Progress: Progressing Plan Plan: D/C D/C Information Discharge Comments: Scheduled for TKA 3/4 d/c sentence: If there are questions or concerns regarding this patient's physical therapy, please feel free to call me at [phone]. Thank you for the referral of this patient. Sincerely, Ronald Lowry PT, Cert MDT, OCS Balance/Gait/Functional tests Balance/Special Test Scores Functional Gait Assessment Score: 23 % Disability: 23.3400 CATSIB Score (Max score 120 seconds): 100 Lower Extremity Functional Score: 47 Improvement % Improvement: 30
--- NOTE | 2024-05-24 13:02 | HP.PTEVAL2_ITS ---
Patient's Visit Information Visit Information Visit Information: MARILUZ GUTIERREZ is a 73 year old F referred to Physical Therapy by Dr. Jose Francisco Mejia DO with a diagnosis of R TKA DOS: 05/18/24. Date of Evaluation: 05/24/24 Physical Therapist: Kartik Kaye DPT Visit Plan Frequency: 3x /Week Duration: 6 Weeks Plan: 1) R knee ROM progressing to 0-0-120deg. 2) edema control with use of ice and vaso 3) quad strengthening starting with iso progressing to concentric 4) functional mobility including stairs, gait, and transfers. Subjective Subjective: Pt. is here today for her initial evaluation with diagnosis of R TKA, DOS: 05/18/24. Pt. reports overall doing well with her TKA. Pt. reports no calf pain, no dizziness and no chest pain. Pt. reports increased pain with walking, prolonged sitting and prolonged standing. She has done some of her exercises at home, but is having trouble with lifting her leg in/out of bed. Pt. uses FWW with gait. Pt. is hopeful to reduce symptoms, increase her ROM and get back to all activities without limitations. She is going on a trip for a conference in ~4 weeks and would like to be moving better by then. Pain R knee: Intensity: 6 Pain Intensity Range: 3 and 8 Objective Objective: POSTURE: Pt. has a slight flexed posture. Pt. has increased wt. shift to L side in stance. PALPATION: Negative homans sign. Pt. has marked swelling 6cm difference at mid patella from side to side. NEURO: normal sensation and normal Achilles DTR. Pt. is able to rise on heels and toes without issues ROM: R knee: 0-8-93deg. Pt. has pain at end ranges of motion. No hard end feel noted, but marked tightness. Pt. has tightness in B HS as well. MMT: R knee: ext 3#, flexion 11#; hip: flexion 0#, abd 0#. GAIT: pt. ambulates with FWW. She has decreased R TKE and decreased knee flexion during swing phase on R side. STAIRS: step to pattern loading LLE only and heavy use of B HR. Balance/Special Gait Scores TUG Test Time Seconds: 33 30 Second Chair Rise Test Seconds: 5 WOMAC Total Score: 63 WOMAC Percentage: 34.3800 Goals Goal 1:: LTG: Pt. to be I with HEP. Goal Time Frame: 4-6 Weeks Goal 2:: STG: Pt. to have increased R knee ROM to 0-0-120deg. Goal Time Frame: 2-4 Weeks Goal 3:: LTG: pt. to have symmetrical strength of BLEs allowing for increased stability and functional mobility. Goal Time Frame: 6-8 Weeks Goal 4:: LTG: Pt. to ambulate with normal gait pattern with out use of AD without increase in R knee pain. Goal Time Frame: 6-8 Weeks Goal 5:: LTG: Pt. to complete TUG with time less than 10seconds. Goal Time Frame: 4-6 Weeks Goal 6:: LTG: Pt. to complete 30sec sit to stand rep test with at least 15 reps Goal Time Frame: 6-8 Weeks Rehabilitation Potential Physical Therapy Diagnosis: Pt. has signs and symptoms consistent with R TKA, DOS: 05/18/24. Pt. has marked hypomobility, weakness, increased pain and difficulty with walking. Pt. would benefit from PT to address the above limitations progressing back to all previous levels of activity. Rehabilitation Potential: Excellent Anticipated Interventions Patient/Client Instruction: Educate patient on: Condition, Plan of Care, Risk Factors and Benefits of Fitness Program For the Purpose of:: To improve decision making, To facilitate caregiver knowledge, To improve self management, To prevent re-injury, To improve ability to perform tasks related to life management and To improve tolerance to ADL's Therapeutic Exercise to Include: Strength training, Power training, Postural training, Flexibilty training, Gait and locomotor training, Passive ROM, Active ROM and Dynamic Lumbar Stabilization For the Purpose of:: To decrease pain, To decrease swelling/inflammation, To increase ROM, To improve nutrient delivery to tissue, To increase oxygenation perfusion, To improve muscle performance and motor function, To improve gait and locomotor functions, To improve health of tissue, To decrease soft tissue restriction, To increase flexibility/ROM, To improve endurance and To improve balance Cryotherapy (ice pack, ice massage): Yes Vasopneumatic device: Yes For the Purpose of:: To decrease pain, To decrease swelling/inflammation, To increase ROM, To improve nutrient delivery to tissue and To increase oxygenation perfusion text: Thank you for the opportunity to evaluate your patient. For Medicare and Medicare HMO plans, please review the plan of care and approve it. It will need to be FAXED BACK to us at [phone] for Medicare purposes. For Medicare only, by signing this I certify the plan of care. Please let me know if there are questions or concerns regarding this plan of care. Physician Signature:___ Date:
--- NOTE | 2024-06-28 10:46 | HP.PTRE(2)_ITS ---
Re-Evaluation Intro: Dr. Jose Francisco Mejia, DO, It has been my pleasure to treat MARILUZ GUTIERREZ over the last 11 visits for R TKA DOS: 05/18/24. Please see the progress note below for an update on the physical therapy plan of care! Subjective Subjective: Pt. reports tolerating her trip well. She arrives with use of cane. Pt. reports 2/10 pain currently. Pt. reports being 60% better overall. Objective Objective/Function/Assessment: ROM: 0-0-114deg. MMT: RLE: knee ext 18#, flexion 21#; hip: flexion 14# LLE: knee: ext 29#, flexion 24#, hip: flexion 23# GAIT: pt. ambulates with SPC with good tolerance. Pt. has good TKe during stance phase and good knee flexion during swing. STAIRS: recirpocal pattern with 2 HR, increased difficulty with controlled eccentric lowering. TU.3sec no AD 30sec sit to stand 11 without use of UEs. Plan Plan Plan: 1) work on end range of motion 2) quad and hip strengthening, progress to functional strengthening 3) stair negotiation Balance/Special Test Scores Balance/Special Test Scores TUG Test Time Seconds: 33 30 Second Chair Rise Test Seconds: 5 WOMAC Total Score: 63 WOMAC Percentage: 34.3800 Goals Goals Goal 1:: LTG: Pt. to be I with HEP. Goal Time Frame: 4-6 Weeks Goal Progress: Progressing Goal 2:: STG: Pt. to have increased R knee ROM to 0-0-120deg. Goal Time Frame: 2-4 Weeks Goal Progress: Progressing Goal 3:: LTG: pt. to have symmetrical strength of BLEs allowing for increased stability and functional mobility. Goal Time Frame: 6-8 Weeks Goal Progress: Progressing Goal 4:: LTG: Pt. to ambulate with normal gait pattern with out use of AD without increase in R knee pain. Goal Time Frame: 6-8 Weeks Goal Progress: Progressing Goal 5:: LTG: Pt. to complete TUG with time less than 10seconds. Goal Time Frame: 4-6 Weeks Goal Progress: Progressing Goal 6:: LTG: Pt. to complete 30sec sit to stand rep test with at least 15 reps Goal Time Frame: 6-8 Weeks Anticipated Interventions Anticipated Interventions Patient/Client Instruction: Educate patient on: Condition, Plan of Care, Risk Factors and Benefits of Fitness Program For the Purpose of:: To improve decision making, To facilitate caregiver knowledge, To improve self management, To prevent re-injury, To improve ability to perform tasks related to life management and To improve tolerance to ADL's Therapeutic Exercise to Include: Strength training, Power training, Postural training, Flexibilty training, Gait and locomotor training, Passive ROM, Active ROM and Dynamic Lumbar Stabilization For the Purpose of:: To decrease pain, To decrease swelling/inflammation, To inc rease ROM, To improve nutrient delivery to tissue, To increase oxygenation perfusion, To improve muscle performance and motor function, To improve gait and locomotor functions, To improve health of tissue, To decrease soft tissue restriction, To increase flexibility/ROM, To improve endurance and To improve balance Cryotherapy (ice pack, ice massage): Yes Vasopneumatic device: Yes For the Purpose of:: To decrease pain, To decrease swelling/inflammation, To increase ROM, To improve nutrient delivery to tissue and To increase oxygenation perfusion Re-Evaluation Ending Re-evaluation ending: Please do not hesitate to contact me at [phone] by phone or Fax: if you have questions or concerns regarding this new plan of care! Sincerely, Kartik Kaye DPT
--- NOTE | 2024-07-22 13:34 | HP.PTRE(2) ---
Re-Evaluation Intro: Dr. Jose Francisco Mejia, DO, It has been my pleasure to treat MARILUZ GUTIERREZ over the last 18 visits for R TKA DOS: 05/18/24. Please see the progress note below for an update on the physical therapy plan of care! Subjective Subjective: Pt. reports getting over her pneumonia and is really starting to feel better. She reports that her knee was swollen yesterday, but is doing better today. Pt reports being 87% better overall. Pt. reports having some mild discomfort in her knee, but no marked pain. Objective Objective/Function/Assessment: ROM: AROM: 0-0-110deg. PROM 0-0-118deg. MMT: RLE: hip: flexion 31.9#, abd 31.6#; knee: ext 29.2#, flex 28.3# LLE: hip: flexion 31.2#, abd 28.0#; knee: ext 32.6#, flex 22.5# GAIT: Pt. ambulates well, she has a slight limp, STAIRS: Pt. is able to complete with1 HR with reciprocal pattern. Pt. has good control. TU.63 no AD. 6 MWT: 1124' feet 30sec sit to stand: 13 reps without use of Ues. overall Mariluz is doing well. She would benefit from continued to strengthening and functional mobility. I am going to recent her to progress gym releated exercises and work on end range flexion. Plan Plan Plan: Work on end range flexion, maintain extension Progress gym strengthening Balance/Special Test Scores Balance/Special Test Scores TUG Test Time Seconds: 33 30 Second Chair Rise Test Seconds: 5 WOMAC Total Score: 24 WOMAC Percentage: 75.0000 Goals Goals Goal 1:: LTG: Pt. to be I with HEP. Goal Time Frame: 4-6 Weeks Goal Progress: Goal Met Goal 2:: STG: Pt. to have increased R knee ROM to 0-0-120deg. Goal Time Frame: 2-4 Weeks Goal Progress: Progressing Goal 3:: LTG: pt. to have symmetrical strength of BLEs allowing for increased stability and functional mobility. Goal Time Frame: 6-8 Weeks Goal Progress: Progressing Goal 4:: LTG: Pt. to ambulate with normal gait pattern with out use of AD without increase in R knee pain. Goal Time Frame: 6-8 Weeks Goal Progress: Progressing Goal 5:: LTG: Pt. to complete TUG with time less than 10seconds. Goal Time Frame: 4-6 Weeks Goal Progress: Goal Met Goal 6:: LTG: Pt. to complete 30sec sit to stand rep test with at least 15 reps Goal Time Frame: 6-8 Weeks Goal Progress: Progressing Anticipated Interventions Anticipated Interventions Patient/Client Instruction: Educate patient on: Condition, Plan of Care, Risk Factors and Benefits of Fitness Program For the Purpose of:: To improve decision making, To facilitate caregiver knowledge, To improve self management, To prevent re-injury, To improve ability to perform tasks related to life management and To improve tolerance to ADL's Therapeutic Exercise to Include: Strength training, Power training, Postural training, Flexibilty training, Gait and locomotor training, Passive ROM, Active ROM and Dynamic Lumbar Stabilization For the Purpose of:: To decrease pain, To decrease swelling/inflammation, To increase ROM, To improve nutrient delivery to tissue, To increase oxygenation perfusion, To improve muscle performance and motor function, To improve gait and locomotor functions, To improve health of tissue, To decrease soft tissue restriction, To increase flexibility/ROM, To improve endurance and To improve balance Cryotherapy (ice pack, ice massage): Yes Vasopneumatic device: Yes For the Purpose of:: To decrease pain, To decrease swelling/inflammation, To increase ROM, To improve nutrient delivery to tissue and To increase oxygenation perfusion Re-Evaluation Ending Re-evaluation ending: Please do not hesitate to contact me at [phone] by phone or if you have questions or concerns regarding this new plan of care! Sincerely, Kartik Kaye DPT
== END 2024-08-30 19:00 | disposition home or self-care (01) ==
LOC: PT 13:30
PROVIDERS: PCP Internal Medicine; Referring Provider Orthopaedic Surgery; Visit Provider Orthopaedic Surgery
DX: M17.0 Bilateral primary osteoarthritis of knee (principal); Z96.651 Presence of right artificial knee joint; M25.561 Pain in right knee; R26.89 Other abnormalities of gait and mobility
CPT/HCPCS: 97016; 97110; 97140; 97161; 97162; 97530